=== PATIENT | female | born 1950 | race Caucasian/White ===

== ENCOUNTER 2021-11-20 12:49 | Emergency (ER) | payer OTHER ==
--- OUTSIDE RECORDS SUMMARY | 2021-11-20 12:51 | XMS REPORT | Continuity of Care Document ---
:1950 Author Organization [facility] Address [address] [place] [address] Dr. Germain [address] [place] [id number] Care Team Providers Name Role Phone RIN Attending Clinician Unavailable Payers Payer Name Policy Type Policy Number Effective Date Expiration Date S ource [employer] MEDICARE [id number] [facility] Problems This patient has no known problems. Allergies, Adverse Reactions, Alerts This patient has no known allergies or adverse reactions. Medications This patient has no known medications. Procedures This patient has no known procedures. Encounters Start End Encounter Admission Attending Care Care Encounter Source Date/Time Date/Time Type Type Clinicians Facility Department ID 2021-11-09 2021-11-09 Outpatient [facility] [id number] [facility] 13:43:47 16:18:44 KATHLEEN [facility] Results This patient has no known results.
[2021-11-20 14:13] LABS: Absolute Lymphocytes (CBC) 0.6 K/uL (0.7-4.9); Hematocrit 39.2 % (36.0-45.0); Lymphocytes % 9.5 % (15.3-44.8); MPV 7.7 fL (7.6-11.3)
[2021-11-20 14:21] LABS: Protime INR 1.18
--- NOTE | 2021-11-20 14:22 | RAD REPORT ---
EXAM DESCRIPTION: RAD - Chest Single View - 11/20/2021 2:05 pm CLINICAL HISTORY: DYSPNEA Chest pain. COMPARISON: No comparisons FINDINGS: Portable technique limits examination quality. Moderate right pleural effusion is noted. Linear subsegmental atelectasis is seen in the right mid reinier ng. The left lung is grossly clear. The heart is normal in size. No displaced fractures.
[2021-11-20 14:31] LABS: ALT/SGPT 12 U/L (12-78); AST/SGOT 17 U/L (15-37); Alkaline Phosphatase 53 U/L (45-117); BUN Blood Urea Nitrogen 15 mg/dL (7-18); Bicarbonate 27 mmol/L (21-32); Bilirubin Direct 0.1 mg/dL (0-0.2); Bilirubin Total 0.4 mg/dL (0.2-1.0); Glucose Level 91 mg/dL (74-106); Magnesium 1.5 mg/dL (1.8-2.4); NT PRO-BNP 691 pg/mL (<125); Potassium 3.8 mmol/L (3.5-5.1); Protein, Total 6.6 g/dL (6.4-8.2); Sodium Level 141 mmol/L (136-145); Troponin (Emerg Dept Use Only) < 0.02 ng/mL (0.0-0.045)
[2021-11-20] MEDS ORDERED: MAGNESIUM SULFATE 1 gm IVPB 1 GM/100 ML BAG IV ONE (15:11)
--- NOTE | 2021-11-20 16:53 | EDPHYS ---
Physician Documentation [facility] Name: Kimberly Hernandez Age: 71 yrs Sex: Female : 1950 Arrival Date: 11/20/2021 Time: 12:52 Bed 26 Private MD: ED Physician Alexander Sullivan HPI: 11/20 17:04 This 71 yrs old Female presents to ER via Wheelchair with complaints of Low O2. kb 17:05 The patient has shortness of breath with light activity. Onset: The symptoms/episode kb began/occurred 4 day(s) ago. Duration: The symptoms are continuous, and are unchanged since they started. The patient's shortness of breath is aggravated by exertion. Associated signs and symptoms: The patient has no apparent associated signs or symptoms. Severity of symptoms: At their worst the symptoms were mild in the emergency department the symptoms are unchanged. The patient has not experienced similar symptoms in the past. The patient has not recently seen a physician. Historical: - Allergies: 13:27 No Known Allergies; ap3 - PMHx: 13:27 Diabetes mellitus; Hypertensive disorder; ap3 - PSHx: 13:27 section; ap3 - Immunization history:: Client reports receiving the 2nd dose of the Covid vaccine. - Social history:: Smoking status: Patient denies any tobacco usage or history of. ROS: 17:03 Constitutional: Negative for fever, chills, and weight loss. kb 17:03 Respiratory: Positive for dyspnea on exertion, Negative for cough, hemoptysis, orthopnea, pleurisy, shortness of breath, sputum production, wheezing. 17:03 All other systems are negative. Exam: 17:03 Constitutional: This is a well developed, well nourished patient who is awake, alert, kb and in no acute distress. Head/Face: Normocephalic, atraumatic. Cardiovascular: Regular rate and rhythm with a normal S1 and S2. No gallops, murmurs, or rubs. No pulse deficits. Respiratory: Respirations even and unlabored. No increased work of breathing. Talking in full sentences Abdomen/GI: Soft, non-tender. No distention Skin: Warm, dry with normal turgor. Normal color. MS/ Extremity: Pulses equal, no cyanosis. Neurovascular intact. Full, normal range of motion. Neuro: Awake and alert, GCS 15, oriented to person, place, time, and situation. Moves all extremities. Normal gait. Psych: Awake, alert, with orientation to person, place and time. Behavior, mood, and affect are within normal limits. 17:03 Cardiovascular: Edema: pedal edema. Vital Signs: 13:23 BP 125 / 55; Pulse 71; Temp 98.7(TE); Pulse Ox 94% on R/A; Weight 73.48 kg; Height 4 ap3 ft. 11 in. (149.86 cm); 13:23 Body Mass Index 32.72 (73.48 kg, 149.86 cm) ap3 MDM: 13:34 Patient medically screened. kb 16:50 Data reviewed: vital signs, nurses notes. Data interpreted: Pulse oximetry: on room air kb is 94 %. Interpretation: normal. Counseling: I had a detailed discussion with the patient and/or guardian regarding: the historical points, exam findings, and any diagnostic results supporting the discharge/admit diagnosis, lab results, radiology results, the need for outpatient follow up, a family practitioner. ED course: Pt states the pleural effusion is known. States she had a CT and was told about the effusion on 11/09/21. Discussed admission with pt. Pt does not want to be admitted. States she will rest better at home and will follow up with her PCP. Pt given strict return precautions and will return if needed. . 11/20 13:42 Order name: Basic Metabolic Panel; Complete Time: 14:32 kb 11/20 13:42 Order name: CBC with Diff; Complete Time: 14:20 kb 11/20 13:42 Order name: LFT's; Complete Time: 14:32 kb 11/20 13:42 Order name: Magnesium; Complete Time: 14:32 kb 11/20 13:42 Order name: NT PRO-BNP; Complete Time: 14:32 kb 11/20 13:42 Order name: PT-INR; Complete Time: 14:22 kb 11/20 13:42 Order name: Troponin (emerg Dept Use Only); Complete Time: 14:32 kb 11/20 13:42 Order name: XRAY Chest (1 view); Complete Time: 14:27 kb 11/20 13:42 Order name: EKG; Complete Time: 13:43 kb 11/20 13:42 Order name: Cardiac monitoring; Complete Time: 13:55 kb 11/20 13:42 Order name: EKG - Nurse/Tech; Complete Time: 14:04 kb 11/20 13:42 Order name: IV Saline Lock; Complete Time: 14:04 kb 11/20 13:42 Order name: Labs collected and sent; Complete Time: 14:04 kb 11/20 13:42 Order name: O2 Per Protocol; Complete Time: 13:55 kb 11/20 13:42 Order name: O2 Sat Monitoring; Complete Time: 13:55 kb Administered Medications: 15:04 Drug: Magnesium Sulfate 1 grams Route: IVPB; Infused Over: 30 mins; Site: left [facility] antecubital; Disposition: 11/21 12:57 Co-signature as Attending Physician, Alexander Sullivan MD I agree with the assessment and blue plan of care. Disposition Summary: 11/20/21 16:52 Discharge Ordered Location: Home kb Condition: Stable kb Diagnosis - Dyspnea kb - Pleural effusion, not elsewhere classified kb Followup: kb - With: Emergency Department - When: As needed - Reason: Worsening of condition Followup: kb - With: Private Physician - When: 2 - 3 days - Reason: Recheck today's complaints, Continuance of care, Re-evaluation by your physician Discharge Instructions: - Discharge Summary Sheet kb - Pleural Effusion kb - Shortness of Breath, Adult, [id number] kb Forms: - Medication Reconciliation Form kb - Thank You Letter kb - Antibiotic Education kb - Prescription Opioid Use kb Signatures: Dispatcher [employer] EDAndreina Flaherty, DOCUMENT REVIEWER-C DOCUMENT REVIEWER-Alexander Barker MD MD cha Prokisch, Amanda RN RN ap3 Eleonora Merida RN RN [id number] Corrections: (The following items were deleted from the chart) 11/20 16:55 15:30 Chest For PE Angio+CT.RAD.BRZ ordered. EDMS EDMS
--- NOTE | 2021-11-20 16:53 | ER ---
Nurse's Notes [facility] Name: Kimberly Hernandez Age: 71 yrs Sex: Female : 1950 Arrival Date: 11/20/2021 Time: 12:52 Bed 26 Private MD: Diagnosis: Dyspnea;Pleural effusion, not elsewhere classified Presentation: 11/20 13:23 Chief complaint: Patient states: she has been getting short of breath a couple of days ap3 ago. Coronavirus screen: At this time, the client does not indicate any symptoms associated with coronavirus-19. Ebola Screen: No symptoms or risks identified at this time. Initial Sepsis Screen: Does the patient meet any 2 criteria? No. Patient's initial sepsis screen is negative. Does the patient have a suspected source of infection? No. Patient's initial sepsis screen is negative. Risk Assessment: Do you want to hurt yourself or someone else? Patient reports no desire to harm self or others. Onset of symptoms was November 17, 2021. 13:23 Method Of Arrival: Wheelchair ap3 13:23 Acuity: VINOD 3 ap3 Triage Assessment: 13:28 General: Appears comfortable, Behavior is calm, cooperative. Pain: Denies pain. Neuro: ap3 Level of Consciousness is awake, alert, obeys commands, Oriented to person, place, time, situation, Appropriate for age. Respiratory: Airway is patent Respiratory effort is even, unlabored. Historical: - Allergies: 13:27 No Known Allergies; ap3 - PMHx: 13:27 Diabetes mellitus; Hypertensive disorder; ap3 - PSHx: 13:27 section; ap3 - Immunization history:: Client reports receiving the 2nd dose of the Covid vaccine. - Social history:: Smoking status: Patient denies any tobacco usage or history of. Screenin:29 Abuse screen: Denies threats or abuse. Nutritional screening: No deficits noted. ap3 Tuberculosis screening: No symptoms or risk factors identified. Vital Signs: 13:23 BP 125 / 55; Pulse 71; Temp 98.7(TE); Pulse Ox 94% on R/A; Weight 73.48 kg; Height 4 ap3 ft. 11 in. (149.86 cm); 13:23 Body Mass Index 32.72 (73.48 kg, 149.86 cm) ap3 ED Course: 12:52 Patient arrived in ED. ds1 13:27 Triage completed. ap3 13:29 Arm band placed on right wrist. ap3 13:34 Andre[facility] Mc[facility]hon F[facility]-C [facility] kb 13:34 Alexander Sullivan MD is Attending Physician. kb 13:47 Eleonora Merida, RN is Primary Nurse. [facility] 14:06 XRAY Chest (1 view) In Process Unspecified. EDMS 14:31 Primary Nurse role handed off by Eleonora Merida, GARFIELD 5 15:09 Eleonora Merida, RN is Primary Nurse. [facility] Administered Medications: 15:04 Drug: Magnesium Sulfate 1 grams Route: IVPB; Infused Over: 30 mins; Site: left [facility] antecubital; Outcome: 16:52 Discharge ordered by MD. kb 17:16 Patient left the ED. [facility] Signatures: Dispatcher [employer] EDAK Andreina Mcmahon FNP-C EVALUATION SPECIALIST-Otilia Godinez ds1 Yayo Marroquin RN RN sr5 Angy Rosenberg RN RN ap3 Eleonora Merida, GARFIELD RN [facility]
[2021-11-20 17:21] VITALS: BP 125/55; TEMP 98.7; O2SAT 94
== END 2021-11-20 17:16 | disposition home or self-care (01) ==
LOC: ER 12:49
DX: J90 Pleural effusion, not elsewhere classified (principal); I10 Essential (primary) hypertension
CPT/HCPCS: 93005; 85025; 80048; 36415; 83735; 85610; 80076; 84484; 83880; 71045; 96374; 99283; J3475

== ENCOUNTER 2022-12-27 07:16 | Day surgery (SDC) | payer OTHER ==
[2022-12-25 16:23] LABS: Protime INR 1.09
[2022-12-25 16:51] LABS: Potassium 4.1 mmol/L (3.5-5.1)
[2022-12-27] MEDS ORDERED: FENTANYL CITR 100 MCG/2 ML ONE (07:26)
[2022-12-27] MEDS ORDERED: propofoL 200 MG/20 ML VIAL IV ONE (07:26)
[2022-12-27] MEDS ORDERED: NS 0.9% VIAL 10 ML ONE (07:27)
[2022-12-27] MEDS ORDERED: Ringers Lactate 1,000 ML IV ONE (07:27)
[2022-12-27] MEDS ORDERED: CEFAZOLIN SODIUM 1 GM/VIAL ONE (07:27)
[2022-12-27] MEDS ORDERED: LIDOCAINE 2% MPF 5 ML VIAL ONE (07:27)
[2022-12-27] MEDS ORDERED: BUPIVACAINE 0.25% PF 30 ML VIAL ONE (07:35)
[2022-12-27] MEDS ORDERED: dexAMETHasone 10 MG/ML VIAL ONE (08:01)
[2022-12-27] MEDS ORDERED: ONDANSETRON 4 MG/2 ML VIAL ONE (08:03)
[2022-12-27] MEDS ORDERED: EPHEDRINE SULF 50 MG/ML VIAL ONE (08:03)
[2022-12-27] MEDS ORDERED: KETOROLAC 30 MG/ML INJ ONE (08:03)
--- NOTE | 2022-12-27 08:29 | P.OP ---
Preoperative diagnosis: LEFT inguinal post op seroma Postoperative diagnosis: LEFT inguinal post op seroma Primary procedure: Incision, Drainage, and Debridement of LEFT groin seroma Anesthesia: GETA + Local Estimated blood loss: <1cc Specimen: debridement tissue, cultures Findings: seroma, necrosis, extending to pubis, inguinal ligament Complications: None Transferred to: Recovery Room Condition: Good
[2022-12-27 09:02] VITALS: O2SAT 100
--- NOTE | 2022-12-27 09:43 | OP ---
Date of Procedure: 12/27/2022 Surgeon: Vance Burns MD, Preoperative Diagnosis: Left inguinal, postop seroma. Postoperative Diagnosis: Left inguinal, postop seroma. Procedure Performed: Incision, drainage and debridement of left groin seroma. Anesthesia: General endotracheal plus local with 0.25% Marcaine. Estimated Blood Loss: Less than 1 cc. Specimen: Debridement tissue and cultures. Findings: Seroma, necrosis extending from the pubis to the inguinal ligament overlying a previous ac cess for an intravascular procedure. Complications: None. Disposition: The patient was transferred to the recovery room in good condition. Procedure In Detail: After informed consent was obtained, the patient was brought to the operating r oom, prepped and draped in the usual sterile fashion after adequate anesthesia was achieved. I made a linear incision overlying a draining sinus tract at the skin level over the left inguinal region fo llowing the previous incision. I dissected down through subcutaneous tissues to expose a large fluid -filled cavity, which was predominantly serous fluid. This was cultured at this time. I then extend ed the incision extending down to the pubis on the medial aspect of the inguinal ligament, removing n ecrotic tissue as I encountered it. There was some necrotic tissue lining this cavity, marsupialized and unroofed the area using sharp dissection as well as electrocautery. There was minimal blood los s throughout the procedure. I then cleansed the area and irrigated it copiously. There were no vasc ular injuries throughout the procedure and no nerves encountered throughout the dissection. I then p roceeded to pack the wound with Vashe-soaked Kerlix and a sterile dressing placed over top. The cori ent tolerated the procedure well without evidence of complication and transferred to PACU in good con dition. All counts were correct at the end of the case. TK/MODL Voice ID: [id number] Report ID: [id number]
[2022-12-27 11:51] VITALS: BP 132/85; TEMP 97.2
== END 2022-12-27 10:05 | disposition home or self-care (01) ==
LOC: OR 07:16
PROVIDERS: ATTEND Surgery
PROC: 0JBC0ZZ Excision of Pelvic Region Subcutaneous Tissue and Fascia, Open Approach (ICD-10-PCS; principal; 2022-12-27 08:30)
DX: L76.34 Postprocedural seroma of skin and subcutaneous tissue following other procedure (principal); I96 Gangrene, not elsewhere classified
CPT/HCPCS: 93005; 80048; 36415; 85610; 88304; 85730; 11042; J2704; J2001; J3010; J1100; A4216; J7120; J2405; J0690

== ENCOUNTER 2023-02-15 13:49 | Emergency (ER) | payer OTHER ==
--- OUTSIDE RECORDS SUMMARY | 2023-02-15 14:08 | XMS REPORT | Continuity of Care Document ---
:[address] [facility] t Address [address] [place] [id number] Care Team Providers Name Role Phone No, Pcp [facility] Primary Care Physician Unavailable Graciela PROCTOR, Ronaldo Green Attending Clinician [phone] RONALDO OWENS Attending Clinician Unavailable BELINDA REYES Attending Clinician Unavailable LEROY BARRETT I Attending Clinician Unavailable LUCRECIA OKEEFE Attending Clinician Unavailable RONALDO OWENS Attending Clinician Unavailable Luke Gallardo Cardiology Attending Clinician Unavailable JONATHAN CANNON Attending Clinician Unavailable Marlo PROCTOR, Jose Luis Pantoja Attending Clinician Lisandro PROCTOR, Americo Cesar Attending Clinician Carlos PROCTOR, Jackson Jimenez Attending Clinician [phone] Alicia Cannon MD Attending Clinician [phone] ALICIA CANNON Attending Clinician Unavailable Dany PROCTOR, Ingrid Ruano Attending Clinician Castro José MD Attending Clinician Solomon Willard MD Attending Clinician John Paul PROCTOR, Nando Rosen Attending Clinician [phone] Piero TERESABrad Attending Clinician [phone] Octavio Chavarria MD Attending Clinician Darion PROCTOR, Jacobo Rivera Attending Clinician BELINDA REYES Admitting Clinician Unavailable LUCRECIA OKEEFE Admitting Clinician Unavailable KNOW, DOES_NOT Admitting Clinician Unavailable RONALDO OWENS Admitting Clinician Unavailable Payers Payer Name Policy Type Policy Number Effective Date Expiration Date S sophia [employer] MEDICARE [id number] 2021 ADVANTAGE 00:00:00 [facility] MEDICARE [id number] [facility] Problems Condition Condition Condition Status Onset Resolution Last Treating Co mments Source Name Details Category Date Date Treatment Clinician Date Ovarian Ovarian Disease Recurre [facility]: [facility] 00 [facility] Bilateral Bilateral Disease Recurre [facility] ovarian ovarian 00:00: Medical cancer cancer 00 Center Type 2 Type [address] [facility]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 [facility]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 Medica l without without Center complicati complicati on, with on, with long-term long-term current current use of use of insulin insulin Essential Essential Disease Active [facility]ens[facility] Hyperlipid Hyperlipid Disease Active [facility] emia, emia, [facility] unspecifie unspecifie Me dical d d Center hyperlipid hyperlipid emia type emia type Aortic Aortic Disease Active [facility] valve valve [facility] stenosis, stenosis, [facility] etiology etiology Center of cardiac of cardiac valve valve disease disease unspecifie unspecifie d d Mitral Mitral Disease Active [facility] valve valve [facility] stenosis, stenosis, [facility]i [facility] unspecifie unspecifie Ce nter d etiology d etiology Major Major Disease Active [facility] depressive depressive [facility] disorder disorder Medica l with with Center current current active active episode, episode, unspecifie unspecifie d d depression depression episode episode severity, severity, unspecifie unspecifie d whether d whether recurrent recurrent Decreased Decreased Disease Active [facility] urine urine [facility] output output Medical Center Allergies, Adverse Reactions, Alerts Allergy Allergy Status Severity Reaction(s) Onset Inactive Treating Comm ents Source Name Type Date Date Clinician codeine DA Active U UNKNOWN [facility] 06[facility] 00:[facility]: [address] Codeine Drug Active 2019-11 "felt [facility] All[facility] 1-04 [facility]" [facility] 00:[facility]: [address] CODEINE Allergy Active 2019-[address] 1[facility]04 [facility] 00:[facility]: [address] NO KNOWN Allergy Active [facility] Social History Social Habit Start Date Stop Date Quantity Comments Source History of Current sm[facility] Alcohol intake 2022-06-29 2022-06-29 Ex-drinker [facility] 00:[facility]00 00:00:00 (finding) [facility] Tobacco use and 2022-02-23 2022-02-[address] [facility] exposure 00:00:00 00:00:00 tobacco user [facility] Cent [facility] Tobacco Comment 2022-02-23 2022-02-23 quit > [address] [facility] 00:00:00 00:00:00 [facility] Sex Assigned At [address] [facility] 00:00:00 00:00:00 [facility] Smoking Status Start Date Stop Date Source Ex-smoker 2022-02-23 00:00:00 2022-02-23 00:00:[address] [facility] Medications Ordered Filled Start Stop Current Ordering Indication Dosage Frequency Signature Comments Components Source Medication Medication Date Date Medication? Clinician (SIG) Name Name levothyroxi Yes 75ug Take [address] [facility] ne 4-25 mcg by [facility] (SYNTHROID, 12:06: mouth Medic al LEVOTHROID) 56 Every Center 75 MCG morning on tablet an empty stomach. SITagliptin Yes 100mg QD Take [address] (JANUVIA) 4-25 mg by [facility] 100 MG 12:06: mouth Medical tablet 56 daily. Center metFORMIN Yes 1000mg Take 1,[address] [facility] [address] (GLUCOPHAGE 4-25 mg by [facility] ) 1000 MG 12:06: mouth 2 Medic al tablet 56 (two) Center times daily with breakfast and dinner. escitalopra 2021-0 Yes 5mg QD Take [address] m oxalate 4-25 by mouth [facility] (LEXAPRO) 5 12:06: daily. Medi dhiraj MG tablet 56 Center rosuvastati 0 Yes 10mg QD Take [address] n (CRESTOR) 4-25 by mouth Luke s 10 MG 12:06: daily. Medical tablet 56 [place] aspirin 81 0 Yes 81mg QD Take [address] MG EC 4-25 by mouth [facility] tablet 12:06: daily. Medical [address] [place] [address] levothyroxi 0 Yes 75ug Take [address] ne 4-25 mcg by [facility] (SYNTHROID, 12:06: mouth Medic al LEVOTHROID) 56 Every Center 75 MCG morning on tablet an empty stomach. SITagliptin 0 Yes 100mg QD Take [address] (JANUVIA) 4-25 mg by [facility] 100 MG 12:06: mouth Medical tablet 56 daily. [place] metFORMIN 0 Yes 1000mg Take 1,[address] (GLUCOPHAGE 4-25 mg by [facility] ) 1000 MG 12:06: mouth 2 Medic al tablet 56 (two) Center times daily with breakfast and dinner. escitalopra 0 Yes 5mg QD Take [address] m oxalate 4-25 by mouth [facility] (LEXAPRO) 5 12:06: daily. Medi dhiraj MG tablet 56 [place] rosuvastati Yes 10mg QD Take [address] n (CRESTOR) 4-25 by mouth Luke s 10 MG 12:06: daily. Medical tablet 56 [place] aspirin 81 0 Yes 81mg QD Take [address] MG EC 4-25 by mouth [facility] tablet 12:06: daily. Medical [address] [place] [address] levothyroxi 0 Yes 75ug Take [address] ne 4-25 mcg by [facility] (SYNTHROID, 12:06: mouth Medic al LEVOTHROID) 56 Every Center 75 MCG morning on tablet an empty stomach. SITagliptin 2021-0 Yes 100mg QD Take [address] (JANUVIA) 4-25 mg by [facility] 100 MG 12:06: mouth Medical tablet 56 daily. [place] metFORMIN 2022-0 Yes 1000mg Take 1,[address] (GLUCOPHAGE 4-25 mg by [facility] ) 1000 MG 12:06: mouth 2 Medic al tablet 56 (two) Center times daily with breakfast and dinner. escitalopra 0 Yes 5mg QD Take [address] m oxalate 4-25 by mouth [facility] (LEXAPRO) 5 12:06: daily. Medi dhiraj MG tablet 56 Center rosuvastati Yes 10mg QD Take [address] n (CRESTOR) 4-25 by mouth Luke s 10 MG 12:06: daily. Medical tablet 56 Center aspirin 81 0 Yes 81mg QD Take [address] MG EC 4-25 by mouth [facility] tablet 12:06: daily. Medical Center levothyroxi 0 Yes 75ug Take [address] ne 4-25 mcg by [facility] (SYNTHROID, 12:06: mouth Medic al LEVOTHROID) 56 Every Center 75 MCG morning on tablet an empty stomach. SITagliptin 0 Yes 100mg QD Take [address] (JANUVIA) 4-25 mg by [facility] 100 MG 12:06: mouth Medical tablet 56 daily. Center metFORMIN Yes 1000mg Take 1,[address] (GLUCOPHAGE 4-25 mg by [facility] ) 1000 MG 12:06: mouth 2 Medic al tablet 56 (two) Center times daily with breakfast and dinner. escitalopra 0 Yes 5mg QD Take [address] m oxalate 4-25 by mouth [facility] (LEXAPRO) 5 12:06: daily. Medi dhiraj MG tablet 56 Center rosuvastati Yes 10mg QD Take [address] n (CRESTOR) 4-25 by mouth Luke s 10 MG 12:06: daily. Medical tablet 56 Center aspirin 81 0 Yes 81mg QD Take [address] MG EC 4-25 by mouth [facility] tablet 12:06: daily. Medical Center levothyroxi 0 Yes 75ug Take [address] ne 4-25 mcg by [facility] (SYNTHROID, 12:06: mouth Medic al LEVOTHROID) 56 Every Center 75 MCG morning on tablet an empty stomach. SITagliptin 0 Yes 100mg QD Take [address] (JANUVIA) 4-25 mg by [facility] 100 MG 12:06: mouth Medical tablet 56 daily. Center metFORMIN Yes 1000mg Take 1,[address] (GLUCOPHAGE 4-25 mg by [facility] ) 1000 MG 12:06: mouth 2 Medic al tablet 56 (two) Center times daily with breakfast and dinner. escitalopra Yes 5mg QD Take [address] m oxalate 4-25 by mouth [facility] (LEXAPRO) 5 12:06: daily. Medi dhiraj MG tablet 56 Center rosuvastati Yes 10mg QD Take [address] n (CRESTOR) 4-25 by mouth Luke s 10 MG 12:06: daily. Medical tablet 56 Center aspirin 81 Yes 81mg QD Take [address] MG EC 4-25 by mouth [facility] tablet 12:06: daily. Medical Center levothyroxi Yes 75ug Take [address] ne 4-25 mcg by [facility] (SYNTHROID, 12:06: mouth Medic al LEVOTHROID) 56 Every Center 75 MCG morning on tablet an empty stomach. SITagliptin Yes 100mg QD Take [address] (JANUVIA) 4-25 mg by [facility] 100 MG 12:06: mouth Medical tablet 56 daily. Center metFORMIN Yes 1000mg Take 1,[address] (GLUCOPHAGE 4-25 mg by [facility] ) 1000 MG 12:06: mouth 2 Medic al tablet 56 (two) Center times daily with breakfast and dinner. escitalopra Yes 5mg QD Take [address] m oxalate 4-25 by mouth [facility] (LEXAPRO) 5 12:06: daily. Medi dhiraj MG tablet 56 Center rosuvastati Yes 10mg QD Take [address] n (CRESTOR) 4-25 by mouth Luke s 10 MG 12:06: daily. Medical tablet 56 Center aspirin 81 0 Yes 81mg QD Take [address] MG EC 4-25 by mouth [facility] tablet 12:06: daily. Medical Center levothyroxi Yes 75ug Take [address] ne 4-25 mcg by [facility] (SYNTHROID, 12:06: mouth Medic al LEVOTHROID) 56 Every Center 75 MCG morning on tablet an empty stomach. SITagliptin 0 Yes 100mg QD Take [address] (JANUVIA) 4-25 mg by [facility] 100 MG 12:06: mouth Medical tablet 56 daily. Center metFORMIN Yes 1000mg Take 1,[address] (GLUCOPHAGE 4-25 mg by [facility] ) 1000 MG 12:06: mouth 2 Medic al tablet 56 (two) Center times daily with breakfast and dinner. escitalopra 0 Yes 5mg QD Take [address] m oxalate 4-25 by mouth [facility] (LEXAPRO) 5 12:06: daily. Medi dhiraj MG tablet 56 Center rosuvastati Yes 10mg QD Take [address] [address] n (CRESTOR) 4-25 by mouth Luke s 10 MG 12:06: daily. Medical tablet 56 Center aspirin 81 0 Yes 81mg QD Take [address] MG EC 4-25 by mouth [facility] tablet 12:06: daily. Medical [address] [place] [address] levothyroxi Yes 75ug Take [address] ne 4-25 mcg by [facility] (SYNTHROID, 12:06: mouth Medic al LEVOTHROID) 56 Every Center 75 MCG morning on tablet an empty stomach. SITagliptin Yes 100mg QD Take [address] (JANUVIA) 4-25 mg by [facility] 100 MG 12:06: mouth Medical tablet 56 daily. Center metFORMIN Yes 1000mg Take 1,[address] (GLUCOPHAGE 4-25 mg by [facility] ) 1000 MG 12:06: mouth 2 Medic al tablet 56 (two) Center times daily with breakfast and dinner. escitalopra 0 Yes 5mg QD Take [address] m oxalate 4-25 by mouth [facility] (LEXAPRO) 5 12:06: daily. Medi dhiraj MG tablet 56 Center rosuvastati Yes 10mg QD Take [address] [facility] [address] n (CRESTOR) 4-25 by mouth Luke s 10 MG 12:06: daily. Medical tablet 56 Center aspirin 81 0 Yes 81mg QD Take [address] MG EC 4-25 by mouth [facility] tablet 12:06: daily. Medical Center levothyroxi 0 Yes 75ug Take [address] ne 4-25 mcg by [facility] (SYNTHROID, 12:06: mouth Medic al LEVOTHROID) 56 Every Center 75 MCG morning on tablet an empty stomach. SITagliptin 0 Yes 100mg QD Take [address] (JANUVIA) 4-25 mg by [facility] 100 MG 12:06: mouth Medical tablet 56 daily. Center metFORMIN 0 Yes 1000mg Take 1,[address] (GLUCOPHAGE 4-25 mg by [facility] ) 1000 MG 12:06: mouth 2 Medic al tablet 56 (two) Center times daily with breakfast and dinner. escitalopra 2021-0 Yes 5mg QD Take [address] m oxalate 4-25 by mouth [facility] (LEXAPRO) 5 12:06: daily. Medi dhiraj MG tablet 56 Center rosuvastati Yes 10mg QD Take [address] [facility] [address] n (CRESTOR) 4-25 by mouth Luke s 10 MG 12:06: daily. Medical tablet 56 [place] aspirin 81 0 Yes 81mg QD Take [address] MG EC 4-25 by mouth [facility] tablet 12:06: daily. Medical [address] [place] [address] levothyroxi Yes 75ug Take [address] ne 4-25 mcg by [facility] (SYNTHROID, 12:06: mouth Medic al LEVOTHROID) 56 Every Center 75 MCG morning on tablet an empty stomach. SITagliptin 0 Yes 100mg QD Take [address] (JANUVIA) 4-25 mg by [facility] 100 MG 12:06: mouth Medical tablet 56 daily. Center metFORMIN Yes 1000mg Take 1,[address] (GLUCOPHAGE 4-25 mg by [facility] ) 1000 MG 12:06: mouth 2 Medic al tablet 56 (two) Center times daily with breakfast and dinner. escitalopra 2021-0 Yes 5mg QD Take [address] m oxalate 4-25 by mouth [facility] (LEXAPRO) 5 12:06: daily. Medi dhiraj MG tablet 56 Center rosuvastati 0 Yes 10mg QD Take [address] [facility] [address] n (CRESTOR) 4-25 by mouth Luke s 10 MG 12:06: daily. Medical tablet 56 Center aspirin 81 0 Yes 81mg QD Take [address] MG EC 4-25 by mouth [facility] tablet 12:06: daily. Medical Center levothyroxi 0 Yes 75ug Take [address] ne 4-25 mcg by [facility] (SYNTHROID, 12:06: mouth Medic al LEVOTHROID) 56 Every Center 75 MCG morning on tablet an empty stomach. SITagliptin 0 Yes 100mg QD Take [address] (JANUVIA) 4-25 mg by [facility] 100 MG 12:06: mouth Medical tablet 56 daily. Center metFORMIN 0 Yes 1000mg Take 1,[address] (GLUCOPHAGE 4-25 mg by [facility] ) 1000 MG 12:06: mouth 2 Medic al tablet 56 (two) Center times daily with breakfast and dinner. escitalopra 0 Yes 5mg QD Take [address] m oxalate 4-25 by mouth [facility] (LEXAPRO) 5 12:06: daily. Medi dhiraj MG tablet 56 Center rosuvastati 0 Yes 10mg QD Take [address] [facility] [address] n (CRESTOR) 4-25 by mouth Luke s 10 MG 12:06: daily. Medical tablet 56 Center aspirin 81 0 Yes 81mg QD Take [address] MG EC 4-25 by mouth [facility] tablet 12:06: daily. [address] sodium 2021-0 Yes 500mg Q.5D Take [address] [facility] [address] phosphates- 4-25 tablets [facility] potassium 00:00: (500 mg Medic al phosphate 00 total) by Dhaval acuna (K-PHOS mouth 2 NEUTRAL) (two) 250 mg Tab times tablet daily. sodium 2021-0 Yes 500mg Q.5D Take [address] [facility] [address] phosphates- 4-25 tablets [facility] potassium 00:00: (500 mg Medic al phosphate 00 total) by Dhaval acuna (K-PHOS mouth 2 NEUTRAL) (two) 250 mg Tab times tablet daily. sodium 2-0 Yes 500mg Q.5D Take [address] [facility] [address] phosphates- 4-25 tablets [facility] potassium 00:00: (500 mg Medic al phosphate 00 total) by Dhaval acuna (K-PHOS mouth 2 NEUTRAL) (two) 250 mg Tab times tablet daily. sodium 2021-0 Yes 500mg Q.5D Take [address] [facility] [address] phosphates- 4-25 tablets [facility] potassium 00:00: (500 mg Medic al phosphate 00 total) by Dhaval acuna (K-PHOS mouth 2 NEUTRAL) (two) 250 mg Tab times tablet daily. sodium 2022-0 Yes 500mg Q.5D Take [address] [facility] [address] phosphates- 4-25 tablets [facility] potassium 00:00: (500 mg Medic al phosphate 00 total) by Dhaval acuna (K-PHOS mouth 2 NEUTRAL) (two) 250 mg Tab times tablet daily. sodium 2022-0 Yes 500mg Q.5D Take [address] [facility] [address] phosphates- 4-25 tablets [facility] potassium 00:00: (500 mg Medic al phosphate 00 total) by Dhaval acuna (K-PHOS mouth 2 NEUTRAL) (two) 250 mg Tab times tablet daily. sodium 2022-0 Yes 500mg Q.5D Take [address] [address] phosphates- 4-25 tablets [facility] potassium 00:00: (500 mg Medic al phosphate 00 total) by Dhaval acuna (K-PHOS mouth 2 NEUTRAL) (two) 250 mg Tab times tablet daily. sodium 2022-0 Yes 500mg Q.5D Take [address] [facility] [address] phosphates- 4-25 tablets [facility] potassium 00:00: (500 mg Medic al phosphate 00 total) by Dhaval acuna (K-PHOS mouth 2 NEUTRAL) (two) 250 mg Tab times tablet daily. sodium 2022-0 Yes 500mg Q.5D Take [address] [facility] [address] phosphates- 4-25 tablets [facility] potassium 00:00: (500 mg Medic al phosphate 00 total) by Dhaval acuna (K-PHOS mouth 2 NEUTRAL) (two) 250 mg Tab times tablet daily. sodium 2022-0 Yes 500mg Q.5D Take [address] [facility] [address] phosphates- 4-25 tablets [facility] potassium 00:00: (500 mg Medic al phosphate 00 total) by Dhaval acuna (K-PHOS mouth 2 NEUTRAL) (two) 250 mg Tab times tablet daily. sodium 2022-0 Yes 500mg Q.5D Take [address] [facility] [address] phosphates- 4-25 tablets [facility] potassium 00:00: (500 mg Medic al phosphate 00 total) by Dhaval acuna (K-PHOS mouth 2 NEUTRAL) (two) 250 mg Tab times tablet daily. magnesium 2022-0 202- No 800mg QD Take [address] [address] oxide 4-25 04-25 tablets [facility] (MAG-OX) 00:00: 23:59 (800 mg Medic al 400 mg 00 :00 total) by [place] (241.3 mg mouth magnesium) daily. tablet magnesium 2022-0 2022- No 800mg QD Take [address] [address] oxide 4-25 04-25 tablets [facility] (MAG-OX) 00:00: 23:59 (800 mg Medic al 400 mg 00 :00 total) by Center (241.3 mg mouth magnesium) daily. tablet magnesium 202-0 2023- No 800mg QD Take [address] [facility] [address] oxide 4-25 04-25 tablets [facility] (MAG-OX) 00:00: 23:59 (800 mg Medic al 400 mg 00 :00 total) by Center (241.3 mg mouth magnesium) daily. tablet magnesium 2021-0 2023- No 800mg QD Take [address] [facility] [address] oxide 4-25 04-25 tablets [facility] (MAG-OX) 00:00: 23:59 (800 mg Medic al 400 mg 00 :00 total) by Center (241.3 mg mouth magnesium) daily. tablet magnesium 2021-0 2023- No 800mg QD Take [address] [facility] oxide 4-25 04-25 tablets [facility] (MAG-OX) 00:00: 23:59 (800 mg Medic al 400 mg 00 :00 total) by Center (241.3 mg mouth magnesium) daily. tablet magnesium 2021-0 2023- No 800mg QD Take [address] [facility] oxide 4-25 04-25 tablets [facility] (MAG-OX) 00:00: 23:59 (800 mg Medic al 400 mg 00 :00 total) by Center (241.3 mg mouth magnesium) daily. tablet magnesium 2021-0 3- No 800mg QD Take [address] [facility] [address] oxide 4-25 04-25 tablets [facility] (MAG-OX) 00:00: 23:59 (800 mg Medic al 400 mg 00 :00 total) by Center (241.3 mg mouth magnesium) daily. tablet magnesium 2021-0 2023- No 800mg QD Take [address] [facility] [address] oxide 4-25 04-25 tablets [facility] (MAG-OX) 00:00: 23:59 (800 mg Medic al 400 mg 00 :00 total) by Center (241.3 mg mouth magnesium) daily. tablet magnesium 2022-0 2023- No 800mg QD Take [address] [facility] [address] oxide 4-25 04-25 tablets [facility] (MAG-OX) 00:00: 23:59 (800 mg Medic al 400 mg 00 :00 total) by Center (241.3 mg mouth magnesium) daily. tablet magnesium 2022-0 2023- No 800mg QD Take [address] [facility] [address] oxide 4-25 04-25 tablets [facility] (MAG-OX) 00:00: 23:59 (800 mg Medic al 400 mg 00 :00 total) by Center (241.3 mg mouth magnesium) daily. tablet magnesium 2022- No 800mg QD Take [address] [facility] oxide 4-25 04-25 tablets [facility] (MAG-OX) 00:00: 23:59 (800 mg Medic al 400 mg 00 :00 total) by Center (241.3 mg mouth magnesium) daily. tablet acetaminoph 2022- No 650mg Take [address] en 4-25 04-20 tablets [facility] (TYLENOL) 00:00: 23:59 (650 mg Medi dhiraj 325 MG 00 :00 total) by Center tablet mouth every 6 (six) hours for 360 days. acetaminoph 2022- No 650mg Take [address] en 4-25 04-20 tablets [facility] (TYLENOL) 00:00: 23:59 (650 mg Medi dhiraj 325 MG 00 :00 total) by Center tablet mouth every 6 (six) hours for 360 days. acetaminoph 2022- No 650mg Take [address] en 4-25 04-20 tablets [facility] (TYLENOL) 00:00: 23:59 (650 mg Medi dhiraj 325 MG 00 :00 total) by Center tablet mouth every 6 (six) hours for 360 days. acetaminoph 2022- No 650mg Take [address] en 4-25 04-20 tablets [facility] (TYLENOL) 00:00: 23:59 (650 mg Medi dhiraj 325 MG 00 :00 total) by Center tablet mouth every 6 (six) hours for 360 days. acetaminoph 2022- No 650mg Take [address] en 4-25 04-20 tablets [facility] (TYLENOL) 00:00: 23:59 (650 mg Medi dhiraj 325 MG 00 :00 total) by Center tablet mouth every 6 (six) hours for 360 days. acetaminoph 2022- No 650mg Take [address] en 4-25 04-20 tablets [facility] (TYLENOL) 00:00: 23:59 (650 mg Medi dhiraj 325 MG 00 :00 total) by Center tablet mouth every 6 (six) hours for 360 days. acetaminoph 2021-0 3- No 650mg Take [address] en 4-25 04-20 tablets [facility] (TYLENOL) 00:00: 23:59 (650 mg Medi dhiraj 325 MG 00 :00 total) by Center tablet mouth every 6 (six) hours for 360 days. acetaminoph 2021-0 3- No 650mg Take [address] en 4-25 04-20 tablets [facility] (TYLENOL) 00:00: 23:59 (650 mg Medi dhiraj 325 MG 00 :00 total) by Center tablet mouth every 6 (six) hours for 360 days. acetaminoph 2021-0 2022- No 650mg Take [address] en 4-25 04-20 tablets [facility] (TYLENOL) 00:00: 23:59 (650 mg Medi dhiraj 325 MG 00 :00 total) by Center tablet mouth every 6 (six) hours for 360 days. acetaminoph 2021-0 2022- No 650mg Take [address] en 4-25 04-20 tablets [facility] (TYLENOL) 00:00: 23:59 (650 mg Medi dhiraj 325 MG 00 :00 total) by Center tablet mouth every 6 (six) hours for 360 days. acetaminoph 2021-0 2022- No 650mg Take [address] en 4-25 04-20 tablets [facility] (TYLENOL) 00:00: 23:59 (650 mg Medi dhiraj 325 MG 00 :00 total) by Center tablet mouth every 6 (six) hours for 360 days. ibuprofen 2021-2021- No 600mg Take [address] [facility] (ADVIL,MOTR 4-25 05-05 tablet [facility] IN) 600 MG 00:00: 23:59 (600 mg Med ical tablet 00 :00 total) by Center mouth every 6 (six) hours for 10 days. ibuprofen 2021-0 2- No 600mg Take [address] [facility] [address] (ADVIL,MOTR 4-25 05-05 tablet [facility] IN) 600 MG 00:00: 23:59 (600 mg Med ical tablet 00 :00 total) by Center mouth every 6 (six) hours for 10 days. ibuprofen 2021-0 2- No 600mg Take [address] [facility] [address] (ADVIL,MOTR 4-25 05-05 tablet [facility] IN) 600 MG 00:00: 23:59 (600 mg Med ical tablet 00 :00 total) by Center mouth every 6 (six) hours for 10 days. ibuprofen 2021-0 2- No 600mg Take [address] [facility] [address] (ADVIL,MOTR 4-25 05-05 tablet [facility] IN) 600 MG 00:00: 23:59 (600 mg Med ical tablet 00 :00 total) by Center mouth every 6 (six) hours for 10 days. ibuprofen 2021-0 2- No 600mg Take [address] [facility] [address] (ADVIL,MOTR 4-25 05-05 tablet [facility] IN) 600 MG 00:00: 23:59 (600 mg Med ical tablet 00 :00 total) by Center mouth every 6 (six) hours for 10 days. ibuprofen 2021-0 2021- No 600mg Take [address] [facility] [address] (ADVIL,MOTR 4-25 05-05 tablet [facility] IN) 600 MG 00:00: 23:59 (600 mg Med ical tablet 00 :00 total) by Center mouth every 6 (six) hours for 10 days. ibuprofen 2021-0 2021- No 600mg Take [address] [facility] [address] (ADVIL,MOTR 4-25 05-05 tablet [facility] IN) 600 MG 00:00: 23:59 (600 mg Med ical tablet 00 :00 total) by Center mouth every 6 (six) hours for 10 days. ibuprofen 2021-0 2021- No 600mg Take [address] [facility] [address] (ADVIL,MOTR 4-25 05-05 tablet [facility] IN) 600 MG 00:00: 23:59 (600 mg Med ical tablet 00 :00 total) by Center mouth every 6 (six) hours for 10 days. ibuprofen 2021-0 2- No 600mg Take [address] [facility] [address] (ADVIL,MOTR 4-25 05-05 tablet [facility] IN) 600 MG 00:00: 23:59 (600 mg Med ical tablet 00 :00 total) by Center mouth every 6 (six) hours for 10 days. ibuprofen 2021-0 2- No 600mg Take [address] [facility] [address] (ADVIL,MOTR 4-25 05-05 tablet [facility] IN) 600 MG 00:00: 23:59 (600 mg Med ical tablet 00 :00 total) by Center mouth every 6 (six) hours for 10 days. ibuprofen 2021-0 2- No 600mg Take [address] [facility] [address] (ADVIL,MOTR 4-25 05-05 tablet [facility] IN) 600 MG 00:00: 23:59 (600 mg Med ical tablet 00 :00 total) by Center mouth every 6 (six) hours for 10 days. polyethylen 2021-0 2021- No 17g QD Take [address] e glycol 4-25 04-28 by mouth [facility] (GLYCOLAX) 00:00: 23:59 daily for M edical 17 gram 00 :00 3 days. Center packet polyethylen 2021-0 2022- No 17g QD Take [address] [facility] e glycol 4-25 04-28 by mouth [facility] (GLYCOLAX) 00:00: 23:59 daily for M edical 17 gram 00 :00 3 days. Center packet polyethylen 2021-0 2- No 17g QD Take [address] [facility] e glycol 4-25 04-28 by mouth [facility] (GLYCOLAX) 00:00: 23:59 daily for M edical 17 gram 00 :00 3 days. Center packet polyethylen 2021-0 2022- No 17g QD Take [address] [facility] e glycol 4-25 04-28 by mouth [facility] (GLYCOLAX) 00:00: 23:59 daily for M edical 17 gram 00 :00 3 days. Center packet polyethylen 2021-0 2022- No 17g QD Take [address] [facility] e glycol 4-25 04-28 by mouth [facility] (GLYCOLAX) 00:00: 23:59 daily for M edical 17 gram 00 :00 3 days. Center packet polyethylen 2-0 2022- No 17g QD Take [address] [facility] e glycol 4-25 04-28 by mouth [facility] (GLYCOLAX) 00:00: 23:59 daily for M edical 17 gram 00 :00 3 days. Center packet polyethylen 2-0 2022- No 17g QD Take [address] [facility] e glycol 4-25 04-28 by mouth [facility] (GLYCOLAX) 00:00: 23:59 daily for M edical 17 gram 00 :00 3 days. Center packet polyethylen 2-0 2022- No 17g QD Take [address] [facility] e glycol 4-25 04-28 by mouth [facility] (GLYCOLAX) 00:00: 23:59 daily for M edical 17 gram 00 :00 3 days. Center packet polyethylen 2022-0 2022- No 17g QD Take [address] e glycol 4-25 04-28 by mouth [facility] (GLYCOLAX) 00:00: 23:59 daily for M edical 17 gram 00 :00 3 days. Center packet polyethylen 2022-0 2022- No 17g QD Take [address] e glycol 4-25 04-28 by mouth [facility] (GLYCOLAX) 00:00: 23:59 daily for M edical 17 gram 00 :00 3 days. Center packet polyethylen 2022-0 2022- No 17g QD Take [address] e glycol 4-25 04-28 by mouth [facility] (GLYCOLAX) 00:00: 23:59 daily for M edical 17 gram 00 :00 3 days. Center packet dapaglifloz 2022-0 2022- No 10mg QD Take [address] [facility] 4[facility]24 04-24 [facility] (Farxiga[facility] 21:12: 00:00 daily. Medic al 10 mg 46 :00 Center tablet dapaglifloz 2022-0 2022- No 10mg QD Take [address] [facility] 4-24 04-24 [facility] (Farxiga) 21:12: 00:00 daily. Medic al 10 mg 46 :00 Center tablet dapaglifloz 2022-0 2022- No 10mg QD Take [address] [facility] 4-24 04-24 [facility] (Farxiga) 21:12: 00:00 daily. Medic al 10 mg 46 :00 Center tablet dapaglifloz 2022-0 2022- No 10mg QD Take [address] [facility] 4-24 04-24 [facility] (Farxiga) 21:12: 00:00 daily. Medic al 10 mg 46 :00 Center tablet dapaglifloz 2022-0 2022- No 10mg QD Take [address] [facility] 4-24 04-24 [facility] (Farxiga) 21:12: 00:00 daily. Medic al 10 mg 46 :00 Center tablet dapaglifloz 2022-0 2022- No 10mg QD Take [address] [facility] 4-24 04-24 [facility] (Farxiga) 21:12: 00:00 daily. Medic al 10 mg 46 :00 Center tablet dapaglifloz 2022-0 2022- No 10mg QD Take [address] [facility] 03-18-24 [facility] (Farxiga) 21:12: 00:00 daily. Medic al 10 mg 46 :00 Center tablet dapaglifloz 2022-0 2022- No 10mg QD Take [address] [facility] 03-18-24 [facility] (Farxiga) 21:12: 00:00 daily. Medic al 10 mg 46 :00 Center tablet dapaglifloz 2022-0 2022- No 10mg QD Take [address] [facility] 03-18-24 [facility] (Farxiga) 21:12: 00:00 daily. Medic al 10 mg 46 :00 Center tablet dapaglifloz 2-0 2022- No 10mg QD Take [address] [facility] 03-18-24 [facility] (Farxiga) 21:12: 00:00 daily. Medic al 10 mg 46 :00 Center tablet dapaglifloz 2022-0 2022- No 10mg QD Take [address] [facility] 03-18-24 [facility] (Farxiga) 21:12: 00:00 daily. Medic al 10 mg 46 :00 Center tablet apixaban 2-0 2022- No 2.5mg Q.5D [facility] 2[facility]5 mg Tab 00:00: 23:59 (2.5 mg Med ical tablet 00 :00 total) by Center mouth 2 (two) times daily for 16 days. apixaban 2-0 2022- No 2.5mg Q.5D Take [facility]-10 [facility] 2[facility]5 mg Tab 00:00: 23:59 (2.5 mg Med ical tablet 00 :00 total) by Center mouth 2 (two) times daily for 16 days. apixaban 2022-0 2022- No 2.5mg Q.5D Take [facility]-10 [facility] 2[facility]5 mg Tab 00:00: 23:59 (2.5 mg Med ical tablet 00 :00 total) by Center mouth 2 (two) times daily for 16 days. apixaban 2-0 2022- No 2.5mg Q.5D Take [facility] 05-10 [facility] 2[facility]5 mg Tab 00:00: 23:59 (2.5 mg Med ical tablet 00 :00 total) by Center mouth 2 (two) times daily for 16 days. apixaban 2-0 2022- No 2.5mg Q.5D Take [facility] 4-[facility] 05-10 [facility] 2[facility]5 mg Tab 00:00: 23:59 (2.5 mg Med ical tablet 00 :00 total) by Center mouth 2 (two) times daily for 16 days. apixaban 2-0 2022- No 2.5mg Q.5D Take [facility] 4-[facility] 05-10 [facility] 2[facility]5 mg Tab 00:00: 23:59 (2.5 mg Med ical tablet 00 :00 total) by Center mouth 2 (two) times daily for 16 days. apixaban 2-0 2022- No 2.5mg Q.5D Take [facility] 4-[facility] 05-10 [facility] 2[facility]5 mg Tab 00:00: 23:59 (2.5 mg Med ical tablet 00 :00 total) by Center mouth 2 (two) times daily for 16 days. apixaban 2-0 2022- No 2.5mg Q.5D Take [facility] 4-[facility] 05-10 [facility] 2[facility]5 mg Tab 00:00: 23:59 (2.5 mg Med ical tablet 00 :00 total) by Center mouth 2 (two) times daily for 16 days. apixaban 2-0 2022- No 2.5mg Q.5D Take [facility] 4-[facility] 05-10 [facility] 2.5 mg Tab 00:00: 23:59 (2.5 mg Med ical tablet 00 :00 total) by Center mouth 2 (two) times daily for 16 days. apixaban 2-0 2022- No 2.5mg Q.5D Take [facility] 4-[facility] 05-10 [facility] 2.5 mg Tab 00:00: 23:59 (2.5 mg Med ical tablet 00 :00 total) by Center mouth 2 (two) times daily for 16 days. apixaban 2021- No 2.5mg Q.5D Take [facility] 4-[facility] 05-10 [facility] 2.5 mg Tab 00:00: 23:59 (2.5 mg Med ical tablet 00 :00 total) by Center mouth 2 (two) times daily for 16 days. HYDROcodone 2021- No 1{tbl} Take [address] [facility] -acetaminop 4-18 04-28 tablet by [place] ([place] 00:00: 23:59 mouth Medic al 5-325) 00 :00 every 6 Center 5-325 mg (six) per tablet hours as needed for Pain for up to 10 days. Max Daily Amount: 4 tablets HYDROcodone 2021- No 1{tbl} Take [address] -acetaminop 4-18 04-28 tablet by [place] ([place] 00:00: 23:59 mouth Medic al 5-325) 00 :00 every 6 Center 5-325 mg (six) per tablet hours as needed for Pain for up to 10 days. Max Daily Amount: 4 tablets HYDROcodone 2021-2021- No 1{tbl} Take [address] -acetaminop 4-18 04-28 tablet by [place] ([place] 00:00: 23:59 mouth Medic al 5-325) 00 :00 every 6 Center 5-325 mg (six) per tablet hours as needed for Pain for up to 10 days. Max Daily Amount: 4 tablets HYDROcodone 2021-2021- No 1{tbl} Take [address] -acetaminop 4-18 04-28 tablet by [place] ([place] 00:00: 23:59 mouth Medic al 5-325) 00 :00 every 6 Center 5-325 mg (six) per tablet hours as needed for Pain for up to 10 days. Max Daily Amount: 4 tablets HYDROcodone 2021-2021- No 1{tbl} Take [address] -acetaminop 4-18 04-28 tablet by [place] ([place] 00:00: 23:59 mouth Medic al 5-325) 00 :00 every 6 Center 5-325 mg (six) per tablet hours as needed for Pain for up to 10 days. Max Daily Amount: 4 tablets HYDROcodone 2021-2021- No 1{tbl} Take [address] -acetaminop 4-18 04-28 tablet by [place] ([place] 00:00: 23:59 mouth Medic al 5-325) 00 :00 every 6 Center 5-325 mg (six) per tablet hours as needed for Pain for up to 10 days. Max Daily Amount: 4 tablets HYDROcodone 2021-2021- No 1{tbl} Take [address] -acetaminop 4-18 04-28 tablet by [place] ([place] 00:00: 23:59 mouth Medic al 5-325) 00 :00 every 6 Center 5-325 mg (six) per tablet hours as needed for Pain for up to 10 days. Max Daily Amount: 4 tablets HYDROcodone 2021-2021- No 1{tbl} Take [address] -acetaminop 4-18 04-28 tablet by [place] ([place] 00:00: 23:59 mouth Medic al 5-325) 00 :00 every 6 Center 5-325 mg (six) per tablet hours as needed for Pain for up to 10 days. Max Daily Amount: 4 tablets HYDROcodone 2021-2021- No 1{tbl} Take [address] -acetaminop 4-18 04-28 tablet by [place] ([place] 00:00: 23:59 mouth Medic al 5-325) 00 :00 every 6 Center 5-325 mg (six) per tablet hours as needed for Pain for up to 10 days. Max Daily Amount: 4 tablets HYDROcodone 2021-2021- No 1{tbl} Take [address] -acetaminop 4-18 04-28 tablet by [place] ([place] 00:00: 23:59 mouth Medic al 5-325) 00 :00 every 6 Center 5-325 mg (six) per tablet hours as needed for Pain for up to 10 days. Max Daily Amount: 4 tablets HYDROcodone 2021-2021- No 1{tbl} Take [address] -acetaminop 4-18 04-28 tablet by [place] ([place] 00:00: 23:59 mouth Medic al 5-325) 00 :00 every 6 Center 5-325 mg (six) per tablet hours as needed for Pain for up to 10 days. Max Daily Amount: 4 tablets HYDROcodone 2021- No 1{tbl} Take [address] -acetaminop 4-12 04-12 tablet by [place] ([place] 13:02: 00:00 mouth Medic al 5-325) 06 :00 every 4 Center 5-325 mg (four) per tablet hours as needed for Pain. HYDROcodone 2021- No 1{tbl} Take [address] -acetaminop 4-12 04-12 tablet by [place] ([place] 13:02: 00:00 mouth Medic al 5-325) 06 :00 every 4 Center 5-325 mg (four) per tablet hours as needed for Pain. HYDROcodone 2021- No 1{tbl} Take [address] -acetaminop 4-12 04-12 tablet by [place] ([place] 13:02: 00:00 mouth Medic al 5-325) 06 :00 every 4 Center 5-325 mg (four) per tablet hours as needed for Pain. HYDROcodone 2021- No 1{tbl} Take [address] -acetaminop 4-12 04-12 tablet by [place] ([place] 13:02: 00:00 mouth Medic al 5-325) 06 :00 every 4 Center 5-325 mg (four) per tablet hours as needed for Pain. HYDROcodone 2021- No 1{tbl} Take [address] -acetaminop 4-12 04-12 tablet by [place] [facility] ([place] 13:02: 00:00 mouth Medic al 5-325) 06 :00 every 4 Center 5-325 mg (four) per tablet hours as needed for Pain. HYDROcodone 2021- No 1{tbl} Take [address] -acetaminop 4-12 04-12 tablet by [place] [facility] ([place] 13:02: 00:00 mouth Medic al 5-325) 06 :00 every 4 Center 5-325 mg (four) per tablet hours as needed for Pain. HYDROcodone 2021- No 1{tbl} Take [address] -acetaminop 4-12 04-12 tablet by [place] [facility] ([place] 13:02: 00:00 mouth Medic al 5-325) 06 :00 every 4 Center 5-325 mg (four) per tablet hours as needed for Pain. HYDROcodone 2021- No 1{tbl} Take [address] -acetaminop 4-12 04-12 tablet by [place] [facility] ([place] 13:02: 00:00 mouth Medic al 5-325) 06 :00 every 4 Center 5-325 mg (four) per tablet hours as needed for Pain. HYDROcodone 2021- No 1{tbl} Take [address] -acetaminop 4-12 04-12 tablet by [place] [facility] ([place] 13:02: 00:00 mouth Medic al 5-325) 06 :00 every 4 Center 5-325 mg (four) per tablet hours as needed for Pain. HYDROcodone 2021- No 1{tbl} Take [address] -acetaminop 4-12 04-12 tablet by [place] [facility] ([place] 13:02: 00:00 mouth Medic al 5-325) 06 :00 every 4 Center 5-325 mg (four) per tablet hours as needed for Pain. HYDROcodone 2021- No 1{tbl} Take [address] -acetaminop 4-12 04-12 tablet by [place] [facility] ([place] 13:02: 00:00 mouth Medic al 5-325) 06 :00 every 4 Center 5-325 mg (four) per tablet hours as needed for Pain. losartan-hy 2021- No 1{tbl} QD Take [address] droCHLOROth 03-03 tablet by [facility] 10:54: 00:00 mouth Medical (HYZAAR) 56 :00 daily. Center 50-12.5 mg per tablet carvediloL 2021- No 25mg Take [address] [facility] ([facility]) 25 03-03 by mouth 2 [facility] tablet 10:54: 00:00 (two) Medica l 56 :00 times Center daily with breakfast and dinner. losartan-hy 2021- No 1{tbl} QD Take [address] droCHLOROth 4- 04-09 tablet by [facility] 10:54: 00:00 mouth Medical (HYZAAR) 56 :00 daily. Center 50-12.5 mg per tablet carvediloL 2021- No 25mg Take [address] [facility] ([facility]G) 25 4- 04-09 by mouth 2 [facility] tablet 10:54: 00:00 (two) Medica l 56 :00 times Center daily with breakfast and dinner. losartan-2021- No 1{tbl} QD Take [address] droCHLOROth 4- 04-09 tablet by [facility] 10:54: 00:00 mouth Medical (HYZAAR) 56 :00 daily. Center 50-12.5 mg per tablet carvediloL 2021- No 25mg Take [address] [facility] ([facility]) 25 03-03-09 by mouth 2 [facility] tablet 10:54: 00:00 (two) Medica l 56 :00 times Center daily with breakfast and dinner. losartan-2021- No 1{tbl} QD Take [address] droCHLOROth 4-07 29-09 tablet by [facility] 10:54: 00:00 mouth Medical (HYZAAR) 56 :00 daily. Center 50-12.5 mg per tablet carvediloL 2021- No 25mg Take [address] [facility] ([facility]) 25 03-03-09 by mouth 2 [facility] tablet 10:54: 00:00 (two) Medica l 56 :00 times Center daily with breakfast and dinner. losartan-2021- No 1{tbl} QD Take [address] droCHLOROth 4- 04-09 tablet by [facility] 10:54: 00:00 mouth Medical (HYZAAR) 56 :00 daily. Center 50-12.5 mg per tablet carvediloL 2021- No 25mg Take [address] [facility] ([facility]) 25 4- 04-09 by mouth 2 [facility] tablet 10:54: 00:00 (two) Medica l 56 :00 times Center daily with breakfast and dinner. losartan-2021- No 1{tbl} QD Take [address] droCHLOROth 03-03- tablet by [facility] 10:54: 00:00 mouth Medical (HYZAAR) 56 :00 daily. Center 50-12.5 mg per tablet carvediloL 2- No 25mg Take [address] [facility] ([facility]G) 25 03-03 by mouth 2 [facility] tablet 10:54: 00:00 (two) Medica l 56 :00 times Center daily with breakfast and dinner. losartan-2021- No 1{tbl} QD Take [address] droCHLOROth 03-03- tablet by [facility] 10:54: 00:00 mouth Medical (HYZAAR) 56 :00 daily. Center 50-12.5 mg per tablet carvediloL 2021-2021- No 25mg Take [address] [facility] ([facility]) 25 03-03 by mouth 2 [facility] tablet 10:54: 00:00 (two) Medica l 56 :00 times Center daily with breakfast and dinner. losartan-hy 2021- No 1{tbl} QD Take [address] droCHLOROth 03-03 tablet by [facility] 10:54: 00:00 mouth Medical (HYZAAR) 56 :00 daily. Center 50-12.5 mg per tablet carvediloL 2021- No 25mg Take [address] [facility] ([facility]) 25 03-03 by mouth 2 [facility] tablet 10:54: 00:00 (two) Medica l 56 :00 times Center daily with breakfast and dinner. losartan-2021- No 1{tbl} QD Take [address] droCHLOROth 03-03- tablet by [facility] 10:54: 00:00 mouth Medical (HYZAAR) 56 :00 daily. Center 50-12.5 mg per tablet carvediloL 2021-2- No 25mg Take [address] [facility] ([facility]G) 25 03-03-09 by mouth 2 [facility] tablet 10:54: 00:00 (two) Medica l 56 :00 times Center daily with breakfast and dinner. losartan-hy 2021- No 1{tbl} QD Take [address] droCHLOROth 03-03 tablet by [place] [facility] 10:54: 00:00 mouth Medical (HYZAAR) 56 :00 daily. Center 50-12.5 mg per tablet carvediloL 2021-2021- No 25mg Take [address] [facility] ([facility]G) 25 03-03 by mouth 2 [facility] tablet 10:54: 00:00 (two) Medica l 56 :00 times Center daily with breakfast and dinner. losartan-hy 2021-2021- No 1{tbl} QD Take [address] droCHLOROth 03-03 tablet by [facility] 10:54: 00:00 mouth Medical (HYZAAR) 56 :00 daily. Center 50-12.5 mg per tablet carvediloL 2021-2021- No 25mg Take [address] [facility] ([facility]G) 25 03-03 by mouth 2 [facility] tablet 10:54: 00:00 (two) Medica l 56 :00 times Center daily with breakfast and dinner. cephalexin 2021-2021- No 500mg Take [address] [facility] (KEFLEX) 03-03-24 [facility] 500 [facility] 00:00: 00:00 (500 mg Medical capsule 00 :00 total) by Center mouth every 12 (twelve) hours for 5 days. cephalexin 2021-2021- No 500mg Take [address] [facility] (KEFLEX) 03-03-24 [facility] 500 MG 00:00: 00:00 (500 mg Medical capsule 00 :00 total) by Center mouth every 12 (twelve) hours for 5 days. cephalexin 2021-0 2- No 500mg Take [address] [facility] (KEFLEX) 03-03-24 [facility] 500 MG 00:00: 00:00 (500 mg Medical capsule 00 :00 total) by Center mouth every 12 (twelve) hours for 5 days. cephalexin 2021-2- No 500mg Take [address] [facility] (KEFLEX) 03-03-24 [facility] 500 MG 00:00: 00:00 (500 mg Medical capsule 00 :00 total) by Center mouth every 12 (twelve) hours for 5 days. cephalexin 2022-0 2022- No 500mg Take [address] [facility] (KEFLEX) 03-03-24 [facility] 500 MG 00:00: 00:00 (500 mg Medical capsule 00 :00 total) by Center mouth every 12 (twelve) hours for 5 days. cephalexin 2022-0 2022- No 500mg Take [address] [facility] (KEFLEX) 03-03-24 [facility] 500 MG 00:00: 00:00 (500 mg Medical capsule 00 :00 total) by Center mouth every 12 (twelve) hours for 5 days. cephalexin 2022-0 2022- No 500mg Take [address] [facility] (KEFLEX) 03-03 [facility] 500 MG 00:00: 00:00 (500 mg Medical capsule 00 :00 total) by Center mouth every 12 (twelve) hours for 5 days. cephalexin 2-0 2022- No 500mg Take [address] [facility] (KEFLEX) 03-03 [facility] 500 MG 00:00: 00:00 (500 mg Medical capsule 00 :00 total) by Center mouth every 12 (twelve) hours for 5 days. cephalexin 2-0 2022- No 500mg Take [address] [facility] (KEFLEX) 03-0324 [facility] 500 [facility] 00:00: 00:00 (500 mg Medical capsule 00 :00 total) by Center mouth every 12 (twelve) hours for 5 days. cephalexin 2-0 2022- No 500mg Take [address] [facility] (KEFLEX) 03-0324 [facility] 500 [facility] 00:00: 00:00 (500 mg Medical capsule 00 :00 total) by Center mouth every 12 (twelve) hours for 5 days. cephalexin 2022-0 2022- No 500mg Take [address] [facility] (KEFLEX) 03-03-24 [facility] 500 MG 00:00: 00:00 (500 mg Medical capsule 00 :00 total) by Center mouth every 12 (twelve) hours for 5 days. HYDROcodone 2021-0 2- No 1{tbl} Take [address] -acetaminop 03-03 tablet by [place] ([place] 00:00: 00:00 mouth Medic al 5-325) 00 :00 every 6 Center 5-325 mg (six) per tablet hours as needed for Pain for up to 10 days. Max Daily Amount: 4 tablets HYDROcodone 2021-0 2021- No 1{tbl} Take [address] -acetaminop 4-09 04-18 tablet by [place] ([place] 00:00: 00:00 mouth Medic al 5-325) 00 :00 every 6 Center 5-325 mg (six) per tablet hours as needed for Pain for up to 10 days. Max Daily Amount: 4 tablets HYDROcodone 2021-2021- No 1{tbl} Take [address] -acetaminop 4-09 04-18 tablet by [place] ([place] 00:00: 00:00 mouth Medic al 5-325) 00 :00 every 6 Center 5-325 mg (six) per tablet hours as needed for Pain for up to 10 days. Max Daily Amount: 4 tablets HYDROcodone 2021-2021- No 1{tbl} Take [address] -acetaminop 4- 04-18 tablet by [place] ([place] 00:00: 00:00 mouth Medic al 5-325) 00 :00 every 6 Center 5-325 mg (six) per tablet hours as needed for Pain for up to 10 days. Max Daily Amount: 4 tablets HYDROcodone 2021-2021- No 1{tbl} Take [address] -acetaminop 4- 04-18 tablet by [place] ([place] 00:00: 00:00 mouth Medic al 5-325) 00 :00 every 6 Center 5-325 mg (six) per tablet hours as needed for Pain for up to 10 days. Max Daily Amount: 4 tablets HYDROcodone 2021-0 2021- No 1{tbl} Take [address] -acetaminop 4-09 04-18 tablet by [place] ([place] 00:00: 00:00 mouth Medic al 5-325) 00 :00 every 6 Center 5-325 mg (six) per tablet hours as needed for Pain for up to 10 days. Max Daily Amount: 4 tablets HYDROcodone 2021-0 2021- No 1{tbl} Take [address] -acetaminop 4-09 04-18 tablet by [place] ([place] 00:00: 00:00 mouth Medic al 5-325) 00 :00 every 6 Center 5-325 mg (six) per tablet hours as needed for Pain for up to 10 days. Max Daily Amount: 4 tablets HYDROcodone 2021-2021- No 1{tbl} Take [address] -acetaminop -07 29-18 tablet by [place] ([place] 00:00: 00:00 mouth Medic al 5-325) 00 :00 every 6 Center 5-325 mg (six) per tablet hours as needed for Pain for up to 10 days. Max Daily Amount: 4 tablets HYDROcodone 2021-2021- No 1{tbl} Take [address] -acetaminop -07 29-18 tablet by [place] ([place] 00:00: 00:00 mouth Medic al 5-325) 00 :00 every 6 Center 5-325 mg (six) per tablet hours as needed for Pain for up to 10 days. Max Daily Amount: 4 tablets HYDROcodone 2021-2021- No 1{tbl} Take [address] -acetaminop 03-03-18 tablet by [place] ([place] 00:00: 00:00 mouth Medic al 5-325) 00 :00 every 6 Center 5-325 mg (six) per tablet hours as needed for Pain for up to 10 days. Max Daily Amount: 4 tablets HYDROcodone 2021-2021- No 1{tbl} Take [address] -acetaminop -07 29-18 tablet by [place] ([place] 00:00: 00:00 mouth Medic al 5-325) 00 :00 every 6 Center 5-325 mg (six) per tablet hours as needed for Pain for up to 10 days. Max Daily Amount: 4 tablets senna 2021-2021- No 8.6mg QD Take [address] [facility] (SENOKOT) 12-01- [facility] 8[facility]6 mg 00:00: 23:59 (8.6 mg Medical tablet 00 :00 total) by Center mouth daily for 60 days. senna 2021-2021- No 8.6mg QD Take [address] [facility] ([place]) 12-01-08 tablet [facility] 8.6 mg 00:00: 23:59 (8.6 mg Medical tablet 00 :00 total) by Center mouth daily for 60 days. senna No 8.6mg QD Take [address] [facility] ([place]) 12-01- [facility] 8.6 mg 00:00: 23:59 (8.6 mg Medical tablet 00 :00 total) by Center mouth daily for 60 days. senna 2021- No 8.6mg QD Take [address] [facility] ([place]) 12-01-08 tablet [facility] 8.6 mg 00:00: 23:59 (8.6 mg Medical tablet 00 :00 total) by Center mouth daily for 60 days. senna No 8.6mg QD Take [address] [facility] ([place]) 12-01- [facility] 8.6 mg 00:00: 23:59 (8.6 mg Medical tablet 00 :00 total) by Center mouth daily for 60 days. senna No 8.6mg QD Take [address] [facility] ([place]) 12-01- tablet [facility] 8.6 mg 00:00: 23:59 (8.6 mg Medical tablet 00 :00 total) by Center mouth daily for 60 days. senna No 8.6mg QD Take [address] [facility] ([place]) 12-01- tablet [facility] 8.6 mg 00:00: 23:59 (8.6 mg Medical tablet 00 :00 total) by Center mouth daily for 60 days. senna 2021- No 8.6mg QD Take [address] [facility] ([place]) 12-01- tablet [facility] 8.6 mg 00:00: 23:59 (8.6 mg Medical tablet 00 :00 total) by Center mouth daily for 60 days. senna No 8.6mg QD Take [address] [facility] ([place]) 12-01- [facility] 8.6 mg 00:00: 23:59 (8.6 mg Medical tablet 00 :00 total) by Center mouth daily for 60 days. Vital Signs Vital Name Observation Time Observation Value Comments Source WEIGHT 2022-03-19 05:00:00 58.06 kg WEIGHT 2022-03-17 05:00:00 58.968 kg WEIGHT 2022-03-16 06:34:00 60.963 kg WEIGHT 2022-03-15 06:00:00 60.7 kg WEIGHT 2022-03-14 05:00:00 60.918 kg WEIGHT 2022-03-13 06:00:00 65.273 kg WEIGHT 2022-03-12 06:00:00 65.091 kg WEIGHT 2022-03-11 04:45:00 59.648 kg WEIGHT 2022-03-10 06:00:00 67.858 kg HEIGHT 2022-03-09 19:50:00 149.9 cm HEIGHT 2022-03-07 06:09:00 149.9 cm WEIGHT 2022-03-07 06:09:00 60.8 kg HEIGHT 2022-03-06 13:04:00 149.9 cm WEIGHT 2022-03-06 13:04:00 61.236 kg WEIGHT 2022-03-19 05:00:00 58.06 kg WEIGHT 2022-03-17 05:00:00 58.968 kg WEIGHT 2022-03-16 06:34:00 60.963 kg WEIGHT 2022-03-15 06:00:00 60.7 kg WEIGHT 2022-03-14 05:00:00 60.918 kg WEIGHT 2022-03-13 06:00:00 65.273 kg WEIGHT 2022-03-12 06:00:00 65.091 kg WEIGHT 2022-03-11 04:45:00 59.648 kg WEIGHT 2022-03-10 06:00:00 67.858 kg HEIGHT 2022-03-09 19:50:00 149.9 cm HEIGHT 2022-03-07 06:09:00 149.9 cm WEIGHT 2022-03-07 06:09:00 60.8 kg HEIGHT 2022-03-06 13:04:00 149.9 cm WEIGHT 2022-03-06 13:04:00 61.236 kg WEIGHT 2022-03-19 05:00:00 58.06 kg WEIGHT 2022-03-17 05:00:00 58.968 kg WEIGHT 2022-03-16 06:34:00 60.963 kg WEIGHT 2022-03-15 06:00:00 60.7 kg WEIGHT 2022-03-14 05:00:00 60.918 kg WEIGHT 2022-03-13 06:00:00 65.273 kg WEIGHT 2022-03-12 06:00:00 65.091 kg WEIGHT 2022-03-11 04:45:00 59.648 kg WEIGHT 2022-03-10 06:00:00 67.858 kg HEIGHT 2022-03-09 19:50:00 149.9 cm HEIGHT 2022-03-07 06:09:00 149.9 cm WEIGHT 2022-03-07 06:09:00 60.8 kg HEIGHT 2022-03-06 13:04:00 149.9 cm WEIGHT 2022-03-06 13:04:00 61.236 kg HEIGHT 2022-02-27 07:01:00 149.9 cm WEIGHT 2022-02-27 07:01:00 66.452 kg WEIGHT 2022-02-27 04:53:00 66.452 kg HEIGHT 2022-02-26 06:00:00 149.9 cm WEIGHT 2022-02-26 06:00:00 65.1 kg HEIGHT 2022-02-23 09:07:00 149 cm WEIGHT 2022-02-23 09:07:00 67 kg HEIGHT 2022-02-27 07:01:00 149.9 cm WEIGHT 2022-02-27 07:01:00 66.452 kg WEIGHT 2022-02-27 04:53:00 66.452 kg HEIGHT 2022-02-26 06:00:00 149.9 cm WEIGHT 2022-02-26 06:00:00 65.1 kg HEIGHT 2022-02-23 09:07:00 149 cm WEIGHT 2022-02-23 09:07:00 67 kg HEIGHT 2022-02-27 07:01:00 149.9 cm WEIGHT 2022-02-27 07:01:00 66.452 kg WEIGHT 2022-02-27 04:53:00 66.452 kg HEIGHT 2022-02-26 06:00:00 149.9 cm WEIGHT 2022-02-26 06:00:00 65.1 kg HEIGHT 2022-02-23 09:07:00 149 cm WEIGHT 2022-02-23 09:07:00 67 kg WEIGHT 2021-11-30 05:47:00 72.666 kg HEIGHT 2021-11-29 19:43:00 149.9 cm WEIGHT 2021-11-29 19:43:00 73.347 kg HEIGHT 2021-11-29 14:29:00 149.9 cm WEIGHT 2021-11-29 14:29:00 73.936 kg WEIGHT 2021-11-30 05:47:00 72.666 kg HEIGHT 2021-11-29 19:43:00 149.9 cm WEIGHT 2021-11-29 19:43:00 73.347 kg HEIGHT 2021-11-29 14:29:00 149.9 cm WEIGHT 2021-11-29 14:29:00 73.936 kg Systolic blood 2022-06-29 10:32:00 145 mm[Hg] [facility] Diastolic blood 2022-06-29 10:32:00 66 mm[Hg] [facility] Heart rate 2022-06-29 10:32:00 69 /min [facility] Body temperature 2022-06-29 10:32:00 36.11 Jessica [facility] Respiratory rate 2022-06-29 10:32:00 19 /min [facility] Oxygen saturation in 2022-06-29 10:32:00 100 /min [facility] Arterial blood by Medical Ce [facility]ter Pulse oximetry Body weight 2022-03-19 05:00:00 58.06 kg [facility] BMI 2022-03-19 05:00:00 25.85 kg/m2 [facility] Body height 2022-03-09 19:50:00 149.9 cm [facility] Procedures Procedure Date / Time Performing Clinician Source Performed CBC W/AUTO DIFF WITH 2022-12-11 09:40:00 [facility] RANDOM URINE 2022-12-11 09:40:00 [facility] of PROTEIN/CREATININE Medicine CANCER ANTIGEN 125 2022-12-11 09:40:00 [facility] COMPREHENSIVE METABOLIC 2022-12-11 09:40:00 [facility] PANEL Medicine CBC W ABSOLUTE NEUTROPHIL 2022-12-11 06:09:42 [facility] RANDOM URINE 2022-11-20 08:40:00 [facility] ge of PROTEIN/CREATININE Medicine CANCER ANTIGEN 125 2022-11-20 08:40:00 [facility] COMPREHENSIVE METABOLIC 2022-11-20 08:40:00 [facility] PANEL [facility] CBC W/AUTO DIFF WITH 2022-11-20 08:40:00 [facility] PLATELETS [facility] CBC W ABSOLUTE NEUTROPHIL 2022-11-20 06:18:00 [facility] COUNT [facility] RANDOM URINE 2022-10-30 09:03:00 [facility] ge of PROTEIN/CREATININE Medicine CANCER ANTIGEN 125 2022-10-30 09:03:00 [facility] COMPREHENSIVE METABOLIC 2022-10-30 09:03:00 [facility] PANEL [facility] CBC W/AUTO DIFF WITH 2022-10-30 09:03:00 [facility] PLATELETS [facility] CBC W ABSOLUTE NEUTROPHIL 2022-10-30 06:21:28 Denzel [facility] COUNT [facility] CBC W/AUTO DIFF WITH 2022-10-02 10:25:44 [facility] PLATELETS [facility] COMPREHENSIVE METABOLIC 2022-10-02 10:25:44 [facility] RANDOM URINE 2022-09-04 07:46:00 [facility] PROTEIN/CREATININE Medicine TSH 2022-09-04 07:46:00 [facility] T4 FREE 2022-09-04 07:46:00 [facility] Medicine CANCER ANTIGEN 125 2022-09-04 07:46:00 [facility] COMPREHENSIVE METABOLIC 2022-09-04 07:46:00 [facility] PANEL Medicine MAGNESIUM 2022-09-04 07:46:00 [facility] CBC W/AUTO DIFF WITH 2022-09-04 07:46:00 [facility] PLATELETS [facility] CBC W ABSOLUTE NEUTROPHIL 2022-09-04 06:25:38 Ba [facility] COUNT [facility] RANDOM URINE 2022-07-10 08:22:42 [facility] ge of PROTEIN/CREATININE Medicine CANCER ANTIGEN 125 2022-07-10 08:14:50 [facility] COMPREHENSIVE METABOLIC 2022-07-10 08:14:50 [facility] PANEL Medicine CYTOLOGY 2022-06-29 11:01:00 Urbanelli, Jackie [facility] XR CHEST 1 VIEW PORTABLE / 2022-06-29 10:26:[address] [facility] BEDSIDE [facility] US THORACENTESIS 2022-06-29 09:50:[address] [facility] PROTHROMBIN TIME/INR 2022-06-29 07:38:00 Jackie Villalta [facility] CBC W/PLT COUNT & AUTO 2022-06-29 07:38:[address] [facility] CBC W/PLT COUNT & AUTO 2022-06-29 07:38:00 Nicolas Villaltaa [facility] AMB REF TO INTERVENTIONAL 2022-06-26 09:53:58 Denzel [facility] EXTERNAL Medicine CBC W/PLT COUNT & AUTO 2022-06-05 07:34:[address] [facility] COMPREHENSIVE METABOLIC 2022-06-05 07:34:[address] [facility] MAGNESIUM 2022-06-05 07:34:00 Graciela, Ronaldo [facility] CBC W/PLT COUNT & AUTO 2022-06-05 07:34:[address] [facility] MAGNESIUM 2022-05-29 08:06:[address] [facility] CBC W/PLT COUNT & AUTO 2022-05-29 08:06:[address] [facility] COMPREHENSIVE METABOLIC 2022-05-29 08:06:[address] [facility] CBC W/PLT COUNT & AUTO 2022-05-29 08:06:[address] [facility] CBC W/PLT COUNT & AUTO 2022-05-08 07:49:[address] [facility] MAGNESIUM 2022-05-08 07:49:00 Graciela, Ronaldo [facility] COMPREHENSIVE METABOLIC 2022-05-08 07:49:00 Graciela, Ronaldo [facility] CBC W/PLT COUNT & AUTO 2022-05-08 07:49:[address] [facility] CBC W ABSOLUTE NEUTROPHIL 2022-05-08 06:20:59 Denzel [facility] COUNT [facility] COMPREHENSIVE METABOLIC 2022-05-08 06:20:59 [facility] PANEL [facility] MAGNESIUM 2022-05-08 06:20:59 [facility] TEMPUS XT TISSUE NGS 2022-05-04 13:59:20 [facility] MAGNESIUM 2022-05-01 08:50:[address] [facility] CBC W/PLT COUNT & AUTO 2022-05-01 08:50:[address] [facility] COMPREHENSIVE METABOLIC 2022-05-01 08:50:00 Ronaldo Owens [facility] CBC W/PLT COUNT & AUTO 2022-05-01 08:50:[address] [facility] TEMPUS XT TISSUE NGS 2022-05-01 08:41:56 [facility] CANCER ANTIGEN 125 2022-04-10 06:35:57 [facility] MAGNESIUM 2022-04-10 06:35:57 [facility] CBC W ABSOLUTE NEUTROPHIL 2022-04-10 06:35:57 [facility] COUNT [facility] METABOLIC 2022-04-10 06:35:57 [facility] PANEL [facility] CANCER ANTIGEN 125 2022-04-09 13:12:00 [facility] MAGNESIUM 2022-04-09 13:12:00 [facility] 2022-04-09 13:12:00 [facility] PANEL [facility] CBC W/AUTO DIFF WITH 2022-04-09 13:12:00 [facility] CBC W ABSOLUTE NEUTROPHIL 2022-04-09 13:06:09 [facility] COUNT [facility] POCT-GLUCOSE METER 2022-03-19 11:11:[address] [facility] POCT-GLUCOSE METER 2022-03-19 07:07:00 [facility] W/PLT COUNT & AUTO 2022-03-19 04:16:[address] [facility] COMPREHENSIVE METABOLIC 2022-03-19 04:16:00 Motomasa, Nava veras [facility] MAGNESIUM 2022-03-19 04:16:00 Moufwest, Nava Mehta [facility] PHOSPHORUS 2022-03-19 04:16:00 Moufwest, Nava Mehta [facility] CBC W/PLT COUNT & AUTO 2022-03-19 04:16:00 Moufwest, Nava Mehta [facility] POCT-GLUCOSE METER 2022-03-18 21:18:00 Graciela [facility] POCT-GLUCOSE METER 2022-03-18 16:58:[address] POCT-GLUCOSE METER 2022-03-18 11:15:[address] [facility] POCT-GLUCOSE METER 2022-03-18 07:53:[address] CBC W/PLT COUNT & AUTO 2022-03-18 05:40:00 Moufwest, Nava [facility] COMPREHENSIVE METABOLIC 2022-03-18 05:40:00 MoNava randolph [facility] MAGNESIUM 2022-03-18 05:40:00 MoNava randolph [facility] PHOSPHORUS 2022-03-18 05:40:00 Moufarrrebeca, Nava Mehta [facility] CBC W/PLT COUNT & AUTO 2022-03-18 05:40:[address] [facility] POCT-GLUCOSE METER 2022-03-17 21:57:[address] [facility] POCT-GLUCOSE METER 2022-03-17 16:39:[address] [facility] POCT-GLUCOSE METER 2022-03-17 11:20:00 Graciela [facility] POCT-GLUCOSE METER 2022-03-17 07:11:00 Ronaldo Owens [facility] CBC W/PLT COUNT & AUTO 2022-03-17 05:25:[address] [facility] COMPREHENSIVE METABOLIC 2022-03-17 05:25:00 MoNava randolph [facility] MAGNESIUM 2022-03-17 05:25:00 MoufNava dodson [facility] PHOSPHORUS 2022-03-17 05:25:00 MoufNava dodson [facility] CBC W/PLT COUNT & AUTO 2022-03-17 05:25:[address] [facility] POCT-GLUCOSE METER 2022-03-16 21:15:00 Graciela [facility] POCT-GLUCOSE METER 2022-03-16 16:50:00 Graciela [facility] SARS-COV2/RT-PCR ([facility] & 2022-03-16 15:07:00 Nava Alvarado [facility] REF [facility] POCT-GLUCOSE METER 2022-03-16 11:27:00 Graciela [facility] POCT-GLUCOSE METER 2022-03-16 07:33:00 Graciela [facility] CBC W/PLT COUNT & AUTO 2022-03-16 03:31:[address] [facility] COMPREHENSIVE METABOLIC 2022-03-16 03:31:00 MoNava randolph [facility] MAGNESIUM 2022-03-16 03:31:00 MoNava randolph [facility] PHOSPHORUS 2022-03-16 03:31:00 MoNava randolph [facility] CBC W/PLT COUNT & AUTO 2022-03-16 03:31:[address] [facility] POCT-GLUCOSE METER 2022-03-15 20:39:00 Graciela, [facility] POCT-GLUCOSE METER 2022-03-15 17:02:[address] [facility] POCT-GLUCOSE METER 2022-03-15 11:26:[address] [facility] POCT-GLUCOSE METER 2022-03-15 07:33:[address] CBC W/PLT COUNT & AUTO 2022-03-15 04:13:[address] [facility] COMPREHENSIVE METABOLIC 2022-03-15 04:13:00 Nava Alvarado [facility] MAGNESIUM 2022-03-15 04:13:00 Nava Alvarado [facility] PHOSPHORUS 2022-03-15 04:13:00 Nava Alvarado [facility] CBC W/PLT COUNT & AUTO 2022-03-15 04:13:[address] [facility] POCT-GLUCOSE METER 2022-03-14 21:05:[address] [facility] CATECHOLAMINES, 2022-03-14 18:07:00 Nava Alvarado [facility] FRACTIONATED, PLASMA Medical Shane ter POCT-GLUCOSE METER 2022-03-14 16:38:[address] [facility] POCT-GLUCOSE METER 2022-03-14 15:04:00 Graciela [facility] URINE CULTURE 2022-03-14 14:26:00 Nava Alvarado [facility] URINALYSIS W/ REFLEX URINE 2022-03-14 14:26:[address] [facility] POCT-GLUCOSE METER 2022-03-14 12:01:[address] [facility] POCT-GLUCOSE METER 2022-03-14 07:42:[address] CBC W/PLT COUNT & AUTO 2022-03-14 03:48:[address] [facility] COMPREHENSIVE METABOLIC 2022-03-14 03:48:00 Motomasa, Nava Nia veras [facility] MAGNESIUM 2022-03-14 03:48:00 Motomasa, Nava Mehta [facility] PHOSPHORUS 2022-03-14 03:48:00 MoNava randolph [facility] CBC W/PLT COUNT & AUTO 2022-03-14 03:48:00 MoufNava dodson [facility] POCT-GLUCOSE METER 2022-03-13 21:12:[address] [facility] POCT-GLUCOSE METER 2022-03-13 17:03:[address] POCT-GLUCOSE METER 2022-03-13 11:46:[address] [facility] POCT-GLUCOSE METER 2022-03-13 07:24:[address] CBC W/PLT COUNT & AUTO 2022-03-13 04:14:00 Moufwest, Nava [facility] COMPREHENSIVE METABOLIC 2022-03-13 04:14:00 MoNava randolph Nia veras [facility] MAGNESIUM 2022-03-13 04:14:00 Christiano Nava [facility] PHOSPHORUS 2022-03-13 04:14:00 Moufwest, Nava [facility] CBC W/PLT COUNT & AUTO 2022-03-13 04:14:00 Moufwest Nava [facility] POCT-GLUCOSE METER 2022-03-12 21:44:[address] [facility] POCT-GLUCOSE METER 2022-03-12 16:42:[address] [facility] POCT-GLUCOSE METER 2022-03-12 11:30:[address] [facility] POCT-GLUCOSE METER 2022-03-12 07:48:00 Graciela, [facility] POCT-GLUCOSE METER 2022-03-12 04:18:[address] CBC W/PLT COUNT & AUTO 2022-03-12 03:26:[address] [facility] COMPREHENSIVE METABOLIC 2022-03-12 03:26:00 Nava Alvarado [facility] MAGNESIUM 2022-03-12 03:26:00 MoNava randolph [facility] PHOSPHORUS 2022-03-12 03:26:00 Moufwest, Nava [facility] CBC W/PLT COUNT & AUTO 2022-03-12 03:26:[address] [facility] POCT-GLUCOSE METER 2022-03-11 20:34:00 [facility] 2022-03-11 16:41:00 [facility] POCT-[facility]SE [facility]ER 2022-03-11 11:47:00 [facility] POCT-[facility]SE [facility]ER 2022-03-11 07:50:[address] [facility] CBC W/PLT COUNT & AUTO 2022-03-11 05:15:[address] [facility] COMPREHENSIVE METABOLIC 2022-03-11 05:15:00 [facility] MAGNESIUM 2022-03-11 05:15:00 [facility] PHOSPHORUS 2022-03-11 05:15:[address] [facility] CBC W/PLT COUNT & AUTO 2022-03-11 05:15:00 [facility] POCT-GLUCOSE METER 2022-03-10 21:18:00 [facility] POCT-[facility]UCOSE METER 2022-03-10 16:29:[address] [facility] POCT-GLUCOSE METER 2022-03-10 12:23:[address] POCT-GLUCOSE METER 2022-03-10 09:40:00 [facility] XR CHEST 1 VIEW PORTABLE / 2022-03-10 06:50:[address] [facility] PT/APTT 2022-03-10 04:48:00 Mofroberta [facility] CBC W/PLT COUNT & AUTO 2022-03-10 04:47:00 [facility] COMPREHENSIVE METABOLIC 2022-03-10 04:47:00 [facility] MAGNESIUM 2022-03-10 04:47:00 Anne [facility] PHOSPHORUS 2022-03-10 04:47:00 [facility] W/[facility]T COUNT & AUTO 2022-03-10 04:47:00 [facility] POCT-GLUCOSE METER 2022-03-09 17:54:[address] [facility] POCT-GLUCOSE METER 2022-03-09 11:52:[address] [facility] CBC W/PLT COUNT & AUTO 2022-03-09 02:45:00 [facility] COMPREHENSIVE METABOLIC 2022-03-09 02:45:00 Anne [facility] MAGNESIUM 2022-03-09 02:45:00 Anne [facility] PHOSPHORUS 2022-03-09 02:45:00 Anne [facility] PT/APTT 2022-03-09 02:45:00 [facility] CBC W/PLT COUNT & AUTO 2022-03-09 02:45:00 Mofor, Chucky Mensah [facility] XR CHEST 1 VIEW PORTABLE / 2022-03-09 01:49:[address] [facility] PREPARE LEUKO-REDUCED RBC 2022-03-08 23:54:00 Nava Alvarado Ma [facility] PREPARE RBC 2022-03-08 23:54:00 Jose Luis Sellers [facility] POCT-GLUCOSE METER 2022-03-08 17:45:00 [facility] BASIC METABOLIC PANEL 2022-03-08 16:58:00 AnneChucky Makenna Scales [facility] RRL CRITICAL LABS 2022-03-08 12:03:00 Vo, [facility] es (ABG,NA,K,H&H,GLUCOSE) Medical C enter BLOOD GAS, ARTERIAL 2022-03-08 12:03:00 Vo, [facility] SODIUM NA-STAT LAB 2022-03-08 12:03:00 Vo, [facility] POTASSIUM-STAT LAB 2022-03-08 12:03:00 Vo, [facility] GLUCOSE-STAT LAB 2022-03-08 12:03:00 Vo, [facility] HGB/HCT (H&H) - STAT LAB 2022-03-08 12:03:00 , [facility] POCT-GLUCOSE METER 2022-03-08 11:54:00 [facility] POCT-GLUCOSE METER 2022-03-08 05:19:00 [facility] BLOOD GAS, ARTERIAL 2022-03-08 05:02:00 Vo, [facility] CBC W/PLT COUNT & AUTO 2022-03-08 04:14:00 Vo, [facility] RRL CRITICAL LABS 2022-03-08 04:14:00 [facility], [facility] (ABG,NA,K,H&H,GLUCOSE) Medical C enter COMPREHENSIVE METABOLIC 2022-03-08 04:14:00 Vo, [facility] MAGNESIUM 2022-03-08 04:14:00 Vo, [facility] PHOSPHORUS 2022-03-08 04:14:00 Vo, [facility] PT/APTT 2022-03-08 04:14:00 Vo, [facility] SODIUM NA-STAT LAB 2022-03-08 04:14:00 Vo, [facility] POTASSIUM-STAT LAB 2022-03-08 04:14:00 Vo, [facility] GLUCOSE-STAT LAB 2022-03-08 04:14:00 Vo, [facility] HGB/HCT (H&H) - STAT LAB 2022-03-08 04:14:00 Vo, [facility] CBC W/PLT COUNT & AUTO 2022-03-08 04:14:00 Vo, [facility] (CELLAVISION MANUAL DIFF) 2022-03-08 04:14:00 Vo, [facility] POCT-GLUCOSE METER 2022-03-08 01:03:00 Ronaldo Owens [facility] XR CHEST 1 VIEW PORTABLE / 2022-03-08 00:54:00 Vo, Pedro Scales [facility] XR CHEST 1 VIEW PORTABLE / 2022-03-07 22:16:00 Peña Singh [facility] RRL CRITICAL LABS 2022-03-07 19:38:00 Vo, [facility] (ABG,NA,K,H&H,GLUCOSE) Medical C enter BLOOD GAS, ARTERIAL 2022-03-07 19:38:00 Nava Alvarado [facility] XR ABDOMEN/KUB 1 VIEW 2022-03-07 19:23:00 Vo, [facility] PT/APTT 2022-03-07 18:47:00 Vo, [facility] CBC W/PLT COUNT & AUTO 2022-03-07 18:47:00 Vo, [facility] COMPREHENSIVE METABOLIC 2022-03-07 18:47:00 Vo, [facility] MAGNESIUM 2022-03-07 18:47:00 Vo, [facility] PHOSPHORUS 2022-03-07 18:47:00 Vo, [facility] CBC W/PLT COUNT & AUTO 2022-03-07 18:47:[address] [facility] POCT-GLUCOSE METER 2022-03-07 17:46:00 Graciela [facility] RRL CRITICAL LABS 2022-03-07 16:20:05 Vo, [facility] es (ABG,NA,K,H&H,GLUCOSE) Medical C enter BLOOD GAS, ARTERIAL 2022-03-07 16:20:05 Graciela [facility] SODIUM NA-STAT LAB 2022-03-07 16:20:05 [facility] POT[facility] 2022-03-07 16:20:05 Graciela [facility] GLUCOSE-STAT LAB 2022-03-07 16:20:[address] [facility] HGB/HCT (H&H) - STAT LAB 2022-03-07 16:20:05 Ronaldo Owens [facility] TRANSFUSE LEUKO-REDUCED 2022-03-07 15:39:00 Jose Luis Sellers [facility] RED BLOOD CELLS [facility] CALCIUM, IONIZED 2022-03-07 15:01:04 [facility] 2022-03-07 15:01:01 Joshua, [facility] es (ABG,NA,K,H&H,GLUCOSE) Medical C enter BLOOD GAS, ARTERIAL 2022-03-07 15:01:[address] SODIUM NA-STAT LAB 2022-03-07 15:01:01 GracielaRonaldo lopez [facility] POTASSIUM-STAT LAB 2022-03-07 15:01:01 Graciela [facility] GLUCOSE-STAT LAB 2022-03-07 15:01:01 Graciela [facility] HGB/HCT (H&H) - STAT LAB 2022-03-07 15:01:01 Graciela Ronaldo Scales [facility] RRL CRITICAL LABS 2022-03-07 14:20:46 Jose Luis Sellers [facility] (ABG,NA,K,H&H,GLUCOSE) Medical C enter CALCIUM, IONIZED 2022-03-07 14:20:46 Marlo [facility] BLOOD GAS, ARTERIAL 2022-03-07 14:20:46 Marlo [facility] SODIUM NA-STAT LAB 2022-03-07 14:20:46 Marlo [facility] POTASSIUM-STAT LAB 2022-03-07 14:20:46 Marlo [facility] GLUCOSE-STAT LAB 2022-03-07 14:20:46 Marlo [facility] HGB/HCT (H&H) - STAT LAB 2022-03-07 14:20:46 Marlo [facility] RRL CRITICAL LABS 2022-03-07 13:49:26 Jose Luis Sellers [facility] (ABG,NA,K,H&H,GLUCOSE) Medical C enter CALCIUM, IONIZED 2022-03-07 13:49:26 Marlo [facility] BLOOD GAS, ARTERIAL 2022-03-07 13:49:26 Marlo [facility] SODIUM NA-STAT LAB 2022-03-07 13:49:26 Marlo [facility] POTASSIUM-STAT LAB 2022-03-07 13:49:26 Marlo [facility] GLUCOSE-STAT LAB 2022-03-07 13:49:26 [facility] (H&H) - STAT LAB 2022-03-07 13:49:26 Jose Luis Sellers [facility] TRANSFUSE LEUKO-REDUCED 2022-03-07 13:33:00 Jose Luis Sellers [facility] RED BLOOD CELLS [facility] RRL CRITICAL LABS 2022-03-07 13:08:31 [facility] (ABG,NA,K,H&H,GLUCOSE) Medical C enter CALCIUM, IONIZED 2022-03-07 13:08:31 Jose Luis Sellers [facility] BLOOD GAS, ARTERIAL 2022-03-07 13:08:31 Jose Luis [facility]ellers [facility] SODIUM NA-STAT LAB 2022-03-07 13:08:31 Marlo misael [facility] POTASSIUM-STAT LAB 2022-03-07 13:08:31 Jose Luis [facility]ellers [facility] GLUCOSE-STAT LAB 2022-03-07 13:08:31 Marlo [facility] HGB/HCT (H&H) - STAT LAB 2022-03-07 13:08:31 Marlo misael [facility] RRL CRITICAL LABS 2022-03-07 11:37:58 [facility] (ABG,NA,K,H&H,GLUCOSE) Medical C enter CALCIUM, IONIZED 2022-03-07 11:37:58 Jose Luis [facility] BLOOD GAS, ARTERIAL 2022-03-07 11:37:58 Jose Luis Sellers [facility] SODIUM NA-STAT LAB 2022-03-07 11:37:58 Marlo misael [facility] POTASSIUM-STAT LAB 2022-03-07 11:37:58 Marlo [facility] GLUCOSE-STAT LAB 2022-03-07 11:37:58 Jose Luis [facility] HGB/HCT (H&H) - STAT LAB 2022-03-07 11:37:[address] [facility] RRL CRITICAL LABS 2022-03-07 10:29:47 [facility] (ABG,NA,K,H&H,GLUCOSE) Medical C enter CALCIUM, IONIZED 2022-03-07 10:29:47 Marlo [facility] BLOOD GAS, ARTERIAL 2022-03-07 10:29:47 Jose Luis Sellers [facility] SODIUM NA-STAT LAB 2022-03-07 10:29:47 Marlo [facility] POTASSIUM-STAT LAB 2022-03-07 10:29:47 Marlo [facility] GLUCOSE-STAT LAB 2022-03-07 10:29:47 Marlo [facility] HGB/HCT (H&H) - STAT LAB 2022-03-07 10:29:47 Marlo [facility] RRL CRITICAL LABS 2022-03-07 09:08:21 Jose Luis Sellers [facility] (ABG,NA,K,H&H,GLUCOSE) Medical C enter CALCIUM, IONIZED 2022-03-07 09:08:21 Marlo [facility] BLOOD GAS, ARTERIAL 2022-03-07 09:08:21 Marlo misael [facility] SODIUM NA-STAT LAB 2022-03-07 09:08:21 Marlo [facility] POTASSIUM-STAT LAB 2022-03-07 09:08:21 Marlo [facility] GLUCOSE-STAT LAB 2022-03-07 09:08:21 Marlo [facility] HGB/HCT (H&H) - STAT LAB 2022-03-07 09:08:21 Marlo [facility] TISSUE EXAM 2022-03-07 09:04:00 Graciela, [facility] LAP[facility], DIAGNOSTIC 2022-03-07 07:15:00 Graciela [facility] HYSTERECTOMY, ABDOMINAL 2022-03-07 07:15:00 Graciela [facility] SALPINGO-OOPHORECTOMY 2022-03-07 07:15:00 Graciela [facility] LAPAROTOMY, EXPLORATORY 2022-03-07 07:15:00 Graciela [facility] HYSTERECTOMY, TOTAL, 2022-03-07 07:15:00 Ronaldo Owens [facility] ABDOMINAL, WITH BILATERAL [facility] SALPINGO-OOPHORECTOMY, WITH OMENTECTOMY, NEOPLASM DEBULKING, AND LYMPHADENECTOMY RESECTION, SMALL INTESTINE 2022-03-07 07:15:00 Graicela [facility] APPENDECTOMY, LAPAROSCOPIC 2022-03-07 07:15:00 Graciela [facility] COMPREHENSIVE METABOLIC 2022-03-07 05:58:00 Nava Alvarado [facility] MAGNESIUM 2022-03-07 05:58:00 Nava Alvarado [facility] PHOSPHORUS 2022-03-07 05:58:00 Nava Alvarado [facility] CBC W/PLT COUNT & AUTO 2022-03-07 05:58:[address] [facility] POCT-GLUCOSE METER 2022-03-07 05:58:00 Graciela [facility] TYPE AND SCREEN, AUTOMATED 2022-03-07 05:58:00 Nava Alvarado [facility] CBC W/PLT COUNT & AUTO 2022-03-07 05:58:[address] [facility] (CELLAVISION MANUAL DIFF) 2022-03-07 05:58:00 Nava Alvarado [facility] SARS-COV2/RT-PCR ([facility] & 2022-03-05 15:48:[address] [facility] REF LABS) [facility] POCT-GLUCOSE METER 2022-03-03 07:58:00 [facility] CBC W/PLT COUNT & AUTO 2022-03-03 04:28:[address] [facility] BASIC METABOLIC PANEL 2022-03-03 04:28:00 Cathy [facility] MAGNESIUM 2022-03-03 04:28:00 Cathy [facility] CBC W/PLT COUNT & AUTO 2022-03-03 04:28:[address] [facility] XR CHEST 1 VIEW PORTABLE / 2022-03-03 04:12:00 Henry Morgan [facility] POCT-GLUCOSE METER 2022-03-02 22:03:00 [facility] & 2022-03-02 17:37:[address] [facility]SE [facility] 2022-03-02 16:14:00 [facility] POCT-GLUCOSE METER 2022-03-02 11:26:00 [facility] POCT-GLUCOSE METER 2022-03-02 08:04:00 [facility] ECHO W CONTRAST & DOPPLER 2022-03-02 07:20:49 Gerri Salgado [facility] CBC W/PLT COUNT & AUTO 2022-03-02 03:31:[address] [facility] BASIC METABOLIC PANEL 2022-03-02 03:31[facility]02 [facility]:31[facility] & AUTO 2022-03-02 03:31:00 Henry Morgan [facility] DIFFERENTIAL [facility] XR CHEST 1 VIEW PORTABLE / 2022-03-02 00:52:[address] [facility] BEDSIDE [facility] POCT-GLUCOSE METER 2022-03-01 21:51:00 Jackson Gonzalez [facility] POCT-GLUCOSE METER 2022-03-01 18:11:00 SenJackson martin [facility] ECG 12-LEAD 2022-03-01 17:02:13 Chelsea Mckee [facility] ECG 12-LEAD 2022-03-01 17:02:13 Unknown, Hl7 [facility] ECG 12-LEAD 2022-03-01 17:02:13 Unknown, Hl7 [facility] POCT-ACT 2022-03-01 14:07:00 Ronaldo Owens [facility] VALVULOPLASTY, AORTIC 2022-03-01 12:17:00 Castro José [facility] VALVE, USING BALLOON Medical Shane ter CBC W/PLT COUNT & AUTO 2022-03-01 04:40:00 Christiano Nava [facility] COMPREHENSIVE METABOLIC 2022-03-01 04:40:00 Nava Alvarado [facility] MAGNESIUM 2022-03-01 04:40:00 Nava Alvarado [facility] PHOSPHORUS 2022-03-01 04:40:00 MoNava randolph [facility] CBC W/PLT COUNT & AUTO 2022-03-01 04:40:00 Christiano Nava [facility] POCT-GLUCOSE METER 2022-02-28 20:51:00 Ronaldo Owens [facility] VITAMIN B12 AND FOLATE 2022-02-28 04:01:00 Nava Alvarado [facility] CBC W/PLT COUNT & AUTO 2022-02-28 04:01:[address] [facility] COMPREHENSIVE METABOLIC 2022-02-28 04:01:00 Nava Alvarado [facility] MAGNESIUM 2022-02-28 04:01:00 Nava Alvarado [facility] PHOSPHORUS 2022-02-28 04:01:00 Nava Alvarado [facility] CBC W/PLT COUNT & AUTO 2022-02-28 04:01:00 Nava Alvarado [facility] XR CHEST 1 VIEW PORTABLE / 2022-02-27 13:43:00 Jackie Villalta [facility] BEDSIDE [facility] CYTOLOGY 2022-02-27 13:32:00 [facility] BODY FLUID CELL COUNT WITH 2022-02-27 13:31:00 [facility] + GRAM 2022-02-27 13:31:00 Ronaldo Owens [facility] STAIN [facility] US THORACENTESIS 2022-02-27 13:19:00 Nava Alvarado [facility] POCT-GLUCOSE METER 2022-02-27 08:02:00 Ronaldo Owens [facility] CBC W/PLT COUNT & AUTO 2022-02-27 05:06:00 Nava Alvarado [facility] COMPREHENSIVE METABOLIC 2022-02-27 05:06:00 Nava Alvarado [facility] MAGNESIUM 2022-02-27 05:06:00 Nava Alvarado [facility] PHOSPHORUS 2022-02-27 05:06:00 Christiano Nava [facility] CBC W/PLT COUNT & AUTO 2022-02-27 05:06:00 Christiano Nava [facility] VENOUS DOPPLER LEGS 2022-02-27 01:19:00 Nava Alvarado I [facility] 2D ECHO W/ DOPPLER 2022-02-26 13:46:00 Gayatri Macias [facility] (CW/PW/COLOR) [facility] CANCER ANTIGEN 125 (CA 2022-02-26 13:12:00 Nava Alvarado [facility] 125) [facility] HEMOGLOBIN A1C 2022-02-26 13:12:00 Nava Alvarado [facility] PT/APTT 2022-02-26 13:12:00 Nava Alvarado [facility] PROTHROMBIN TIME/INR 2022-02-26 13:12:00 Nava Alvarado [facility] ABORH, MANUAL 2022-02-26 13:12:00 Makayla Higuera [facility] POCT-GLUCOSE METER 2022-02-26 11:22:00 Ronaldo Owens [facility] XR CHEST 2 VIEWS 2022-02-26 10:49:00 Nava Alvarado [facility] COMPREHENSIVE METABOLIC 2022-02-26 06:25:00 Nava Alvarado [facility] CBC W/PLT COUNT & AUTO 2022-02-26 06:25:[address] [facility] HC LAB HIV-1 AG W/HIV-1&2 2022-02-26 06:25:00 Nava Alvarado Ma [facility] AB [facility] MAGNESIUM 2022-02-26 06:25:00 Nava Alvarado [facility] PHOSPHORUS 2022-02-26 06:25:00 Nava Alvarado [facility] TSH/FREE T4 IF INDICATED 2022-02-26 06:25:00 Nava Alvarado [facility] T4, FREE 2022-02-26 06:25:00 Nava Alvarado [facility] LIPID PANEL 2022-02-26 06:25:00 Hi Crane [facility] TYPE AND SCREEN, AUTOMATED 2022-02-26 06:25:00 Nava Alvarado [facility] CBC W/PLT COUNT & AUTO 2022-02-26 06:25:[address] [facility] POCT-GLUCOSE METER 2022-02-26 06:23:00 Ronaldo Owens [facility] VASCULAR DIAGRAM -SCAN 2022-02-26 00:00:00 Provider, Default [facility] CARDIAC CATH REPORT - SCAN 2022-02-26 00:00:00 Provider, Default [facility] SARS-COV2/RT-PCR ([facility] & 2022-02-22 08:57:00 Ronaldo Owens [facility] REF LABS) [facility] HEMOGLOBIN 2022-02-22 08:57:00 Manuel Schreiber [facility] ECG 12-LEAD 2022-02-22 08:53:54 Abdoul [facility] ECG 12-LEAD 2022-02-22 08:53:54 Unknown, Hl7 [facility] ECG 12-LEAD 2022-02-22 08:53:54 Unknown, Hl7 [facility] POCT-GLUCOSE METER 2021-12-01 07:22:00 Ronaldo Owens [facility] CBC W/PLT COUNT & AUTO 2021-12-01 04:17:00 Petty, Jacky [facility] COMPREHENSIVE METABOLIC 2021-12-01 04:17:00 Jacky Dove [facility] MAGNESIUM 2021-12-01 04:17:00 Petty, Jacky S [facility] PHOSPHORUS 2021-12-01 04:17:00 Petty Jacky S [facility] CBC W/PLT COUNT & AUTO 2021-12-01 04:17:[address] [facility] (CELLAVISION MANUAL DIFF) 2021-12-01 04:17:00 Petty [facility] POCT-GLUCOSE METER 2021-11-30 21:10:00 [facility] 2021-11-30 17:22:00 Graciela [facility] POCT-GLUCOSE METER 2021-11-30 12:16:00 Graciela [facility] IR PORT-A-CATH PLACEMENT 2021-11-30 11:54:00 Petty [facility] XR CHEST 1 VIEW PORTABLE / 2021-11-30 09:19:00 Jackie Villalta [facility] BEDSIDE [facility] BODY FLUID CULTURE + GRAM 2021-11-30 09:08:00 Petty [facility] US THORACENTESIS 2021-11-30 09:08:00 Petty [facility] CYTOLOGY 2021-11-30 09:07:00 Petty [facility] CBC W/PLT COUNT & AUTO 2021-11-30 03:46:[address] [facility] COMPREHENSIVE METABOLIC 2021-11-30 03:46:00 Jacky Dove [facility] MAGNESIUM 2021-11-30 03:46:00 Petty [facility] PHOSPHORUS 2021-11-30 03:46:00 Petty [facility] PROTHROMBIN TIME/INR 2021-11-30 03:46:00 [facility] 2021-11-30 03:46[facility] W/[facility]T COUNT & AUTO 2021-11-30 03:46:00 Petty, [facility] CBC W/PLT COUNT & AUTO 2021-11-29 16:55:00 Graciela [facility] CBC W/PLT COUNT & AUTO 2021-11-29 [facility]:55[facility]OV[facility] ([facility] & 2021-11-29 16:51:00 Petty, [facility] REF LABS) [facility] COMPREHENSIVE METABOLIC 2021-11-29 16:51:00 Petty, Jacky Diane Scales [facility] MAGNESIUM 2021-11-29 16:51:00 Petty [facility] PHOSPHORUS 2021-11-29 16:51:00 Petty [facility] PROTHROMBIN TIME/INR 2021-11-29 16:51:00 Petty [facility] APTT 2021-11-29 16:51:00 Petty [facility] FIBRINOGEN 2021-11-29 16:51:00 Petty [facility] D-DIMER 2021-11-29 16:51:00 Petty [facility] Plan of Care Planned Activity Planned Date Details Comments Source Future Scheduled 2030-09-28 DTAP/TDAP/TD VACCINES [facility] 00:[facility]:00 (2 - Td or Tdap) [code Medic al Center = DTAP/TDAP/TD VACCINES (2 - Td or Tdap)] Future Scheduled 2030-09-28 DTAP/TDAP/TD VACCINES [facility] 00:00:00 (2 - Td or Tdap) [code Medic al Center = DTAP/TDAP/TD VACCINES (2 - Td or Tdap)] Future Scheduled 2030-09-28 DTAP/TDAP/TD VACCINES [facility] 00:00:00 (2 - Td or Tdap) [code Medic al Center = DTAP/TDAP/TD VACCINES (2 - Td or Tdap)] Future Scheduled 2030-09-28 DTAP/TDAP/TD VACCINES [facility] 00:00:00 (2 - Td or Tdap) [code Medic al Center = DTAP/TDAP/TD VACCINES (2 - Td or Tdap)] Future Scheduled 2030-09-28 DTAP/TDAP/TD VACCINES [facility] 00:00:00 (2 - Td or Tdap) [code Medic al Center = DTAP/TDAP/TD VACCINES (2 - Td or Tdap)] Future Scheduled 2030-09-28 DTAP/TDAP/TD VACCINES [facility] 00:00:00 (2 - Td or Tdap) [code Medic al Center = DTAP/TDAP/TD VACCINES (2 - Td or Tdap)] Future Scheduled 2030-09-28 DTAP/TDAP/TD VACCINES [facility] 00:00:00 (2 - Td or Tdap) [code Medic al Center = DTAP/TDAP/TD VACCINES (2 - Td or Tdap)] Future Scheduled 2030-09-28 DTAP/TDAP/TD VACCINES [facility] 00:00:00 (2 - Td or Tdap) [code Medic al Center = DTAP/TDAP/TD VACCINES (2 - Td or Tdap)] Future Scheduled 2030-09-28 DTAP/TDAP/TD VACCINES [facility] 00:00:00 (2 - Td or Tdap) [code Medic al Center = DTAP/TDAP/TD VACCINES (2 - Td or Tdap)] Future Scheduled 2030-09-28 DTAP/TDAP/TD VACCINES [facility] 00:00:00 (2 - Td or Tdap) [code Medic al Center = DTAP/TDAP/TD VACCINES (2 - Td or Tdap)] Future Scheduled 2030-09-28 DTAP/TDAP/TD VACCINES [facility] 00:00:00 (2 - Td or Tdap) [code Medic al Center = DTAP/TDAP/TD VACCINES (2 - Td or Tdap)] Future Scheduled 2023-06-[address] [facility] 00:00:00 [facility] Cent[facility] r Screening (12+) [code = Tobacco Cessation Counseling and Screening (12+)] Future Scheduled 2023-06-[address] [facility] 00:00:00 [facility]ing [facility] Medical Cent[facility] r Screening (12+) [code = Tobacco Cessation Counseling and Screening (12+)] Future Scheduled 2023-06-[address] [facility] 00:00:00 Counseling and Medical Cente r Screening (12+) [code = Tobacco Cessation Counseling and Screening (12+)] Future Scheduled 2023-06-[address] [facility] 00:00:00 Counseling and Medical Cente r Screening (12+) [code = Tobacco Cessation Counseling and Screening (12+)] Future Scheduled 2023-06-[address] [facility] 00:00:00 Counseling and Medical Cente r Screening (12+) [code = Tobacco Cessation Counseling and Screening (12+)] Future Scheduled 2023-06-[address] [facility] 00:00:00 Counseling and Medical Cente r Screening (12+) [code = Tobacco Cessation Counseling and Screening (12+)] Future Scheduled 2023-06-[address] [facility] 00:00:00 Counseling and Medical Cente r Screening (12+) [code = Tobacco Cessation Counseling and Screening (12+)] Future Scheduled 2023-06-[address] [facility] 00:00:00 Counseling and Medical Cente r Screening (12+) [code = Tobacco Cessation Counseling and Screening (12+)] Future Scheduled 2023-06-[address] [facility] 00:00:00 Counseling and Medical Cente r Screening (12+) [code = Tobacco Cessation Counseling and Screening (12+)] Future Scheduled 2022-11-[address] [facility]:00 WELLNESS (YEAR 2 or Medical Center FIRST YEAR if no IPPE) [code = MEDICARE ANNUAL WELLNESS (YEAR 2 or FIRST YEAR if no IPPE)] Future Scheduled 2022-11-[address] [facility] 00:00:00 WELLNESS (YEAR 2 or Medical Center FIRST YEAR if no IPPE) [code = MEDICARE ANNUAL WELLNESS (YEAR 2 or FIRST YEAR if no IPPE)] Future Scheduled 2022-11-[address] [facility] 00:00:00 WELLNESS (YEAR 2 or Medical Center FIRST YEAR if no IPPE) [code = MEDICARE ANNUAL WELLNESS (YEAR 2 or FIRST YEAR if no IPPE)] Future Scheduled 2022-11-[address] [facility] 00:00:00 WELLNESS (YEAR 2 or Medical Center FIRST YEAR if no IPPE) [code = MEDICARE ANNUAL WELLNESS (YEAR 2 or FIRST YEAR if no IPPE)] Future Scheduled 2022-11-[address] [facility] 00:00:00 WELLNESS (YEAR 2 or Medical Center FIRST YEAR if no IPPE) [code = MEDICARE ANNUAL WELLNESS (YEAR 2 or FIRST YEAR if no IPPE)] Future Scheduled 2022-11-[address] [facility] 00:00:00 WELLNESS (YEAR 2 or Medical Center FIRST YEAR if no IPPE) [code = MEDICARE ANNUAL WELLNESS (YEAR 2 or FIRST YEAR if no IPPE)] Future Scheduled 2022-11-25 FALLS RISK SCREENING [facility] 00:00:00 [code = FALLS RISK Medical C enter SCREENING] Future Scheduled 2022-11-25 FALLS RISK SCREENING [facility] 00:00:00 [code = FALLS RISK Medical C enter SCREENING] Future Scheduled 2022-11-25 FALLS RISK SCREENING [facility] 00:00:00 [code = FALLS RISK Medical C enter SCREENING] Future Scheduled 2022-11-25 FALLS RISK SCREENING [facility] 00:00:00 [code = FALLS RISK Medical C enter SCREENING] Future Scheduled 2022-11-25 FALLS RISK SCREENING [facility] 00:00:00 [code = FALLS RISK Medical C enter SCREENING] Future Scheduled 2022-11-25 FALLS RISK SCREENING [facility] 00:00:00 [code = FALLS RISK Medical C enter SCREENING] Future Scheduled 2022-07-26 INFLUENZA VACCINE (#1) [facility] 00:00:00 [code = INFLUENZA Medical Ce nter VACCINE (#1)] Future Scheduled 2022-07-26 INFLUENZA VACCINE (#1) [facility] 00:00:00 [code = INFLUENZA Medical Ce nter VACCINE (#1)] Future Scheduled 2022-07-26 INFLUENZA VACCINE (#1) [facility] 00:00:00 [code = INFLUENZA Medical Ce nter VACCINE (#1)] Future Scheduled 2022-07-26 INFLUENZA VACCINE (#1) [facility] 00:00:00 [code = INFLUENZA Medical Ce nter VACCINE (#1)] Future Scheduled 2022-07-26 INFLUENZA VACCINE (#1) [facility] 00:00:00 [code = INFLUENZA Medical Ce nter VACCINE (#1)] Future Scheduled 2022-07-26 INFLUENZA VACCINE (#1) [facility] 00:00:00 [code = INFLUENZA Medical Ce nter VACCINE (#1)] Future Scheduled 2022-07-26 INFLUENZA VACCINE (#1) [facility] 00:00:00 [code = INFLUENZA Medical Ce nter VACCINE (#1)] Future Scheduled 2022-07-26 INFLUENZA VACCINE (#1) [facility] 00:00:00 [code = INFLUENZA Medical Ce nter VACCINE (#1)] Future Scheduled 2022-07-26 INFLUENZA VACCINE (#1) [facility] 00:00:00 [code = INFLUENZA Medical Ce nter VACCINE (#1)] Future Scheduled 2022-07-26 INFLUENZA VACCINE (#1) [facility] 00:00:00 [code = INFLUENZA Medical Ce nter VACCINE (#1)] Future Scheduled 2022-07-26 INFLUENZA VACCINE (#1) [facility] 00:00:00 [code = INFLUENZA Medical Ce nter VACCINE (#1)] Future Scheduled 2022-03-[address] [facility]procedure[facility] [code = [id number]] Future Scheduled 2022-03-[address] [facility] 00:00:00 measurement (procedure) [facility] [code = [id number]] Future Scheduled 2022-03-[address] [facility] 00:00:00 measurement (procedure) [facility] [code = [id number]] Future Scheduled 2022-03-[address] [facility] 00:00:00 measurement (procedure) [facility] [code = [id number]] Future Scheduled 2022-03-[address] [facility] 00:00:00 measurement (procedure) [facility] [code = [id number]] Future Scheduled 2022-03-[address] [facility] 00:00:00 measurement (procedure) [facility] [code = [id number]] Future Scheduled 2022-03-[address] [facility] 00:00:00 measurement (procedure) [facility] [code = [id number]] Future Scheduled 2022-03-[address] [facility] 00:00:00 measurement (procedure) [facility] [code = [id number]] Future Scheduled 2022-03-[address] [facility] 00:00:00 measurement (procedure) [facility] [code = [id number]] Future Scheduled 2022-03-[address] [facility] 00:00:00 measurement (procedure) [facility] [code = [id number]] Future Scheduled 2022-03-[address] [facility] 00:00:00 measurement (procedure) [facility] [code = [id number]] Future Scheduled 2021-11-25 FALLS RISK SCREENING [facility] 00:00:00 [code = FALLS RISK Medical C enter SCREENING] Future Scheduled 2021-11-25 Medicare IPPE (WELCOME [facility] 00:00:00 TO MEDICARE) [code = Medical Center Medicare IPPE (WELCOME TO MEDICARE)] Future Scheduled 2021-11-25 FALLS RISK SCREENING [facility] 00:00:00 [code = FALLS RISK Medical C enter SCREENING] Future Scheduled 2021-11-25 Medicare IPPE (WELCOME [facility] 00:00:00 TO MEDICARE) [code = Medical Center Medicare IPPE (WELCOME TO MEDICARE)] Future Scheduled 2021-11-25 FALLS RISK SCREENING [facility] 00:00:00 [code = FALLS RISK Medical C enter SCREENING] Future Scheduled 2021-11-25 Medicare IPPE (WELCOME [facility] 00:00:00 TO MEDICARE) [code = Medical Center Medicare IPPE (WELCOME TO MEDICARE)] Future Scheduled 2021-11-25 FALLS RISK SCREENING [facility] 00:00:00 [code = FALLS RISK Medical C enter SCREENING] Future Scheduled 2021-11-25 Medicare IPPE (WELCOME [facility] 00:00:00 TO MEDICARE) [code = Medical Center Medicare IPPE (WELCOME TO MEDICARE)] Future Scheduled 2021-11-25 FALLS RISK SCREENING [facility] 00:00:00 [code = FALLS RISK Medical C enter SCREENING] Future Scheduled 2021-11-25 Medicare IPPE (WELCOME [facility] 00:00:00 TO MEDICARE) [code = Medical Center Medicare IPPE (WELCOME TO MEDICARE)] Future Scheduled 1998 SHINGLES VACCINES ([address] [facility] 00:00:00 2) [code = SHINGLES Medical Center VACCINES (1 of 2)] Future Scheduled 1998 SHINGLES VACCINES ([address] [facility] 00:00:00 2) [code = SHINGLES Medical Center VACCINES (1 of 2)] Future Scheduled 1998 SHINGLES VACCINES ([address] [facility] 00:00:00 2) [code = SHINGLES Medical Center VACCINES (1 of 2)] Future Scheduled 1998 SHINGLES VACCINES ([address] [facility] 00:00:00 2) [code = SHINGLES Medical Center VACCINES (1 of 2)] Future Scheduled 1998 SHINGLES VACCINES ([address] [facility] 00:00:00 2) [code = SHINGLES Medical Center VACCINES (1 of 2)] Future Scheduled 1998 SHINGLES VACCINES ([address] [facility] 00:00:00 2) [code = SHINGLES Medical Center VACCINES (1 of 2)] Future Scheduled 1998 SHINGLES VACCINES ([address] [facility] 00:00:00 2) [code = SHINGLES Medical Center VACCINES (1 of 2)] Future Scheduled 1998 SHINGLES VACCINES ([address] [facility] 00:00:00 2) [code = SHINGLES Medical Center VACCINES (1 of 2)] Future Scheduled 1998 SHINGLES VACCINES ([address] [facility] 00:00:00 2) [code = SHINGLES Medical Center VACCINES (1 of 2)] Future Scheduled 1998 SHINGLES VACCINES ([address] [facility] 00:00:00 2) [code = SHINGLES Medical Center VACCINES (1 of 2)] Future Scheduled 1998 SHINGLES VACCINES ([address] [facility] 00:00:00 2) [code = SHINGLES Medical Center VACCINES (1 of 2)] Future Scheduled 1966 HEPATITIS C SCREENING [facility] 00:00:00 [code = HEPATITIS C Medical Center SCREENING] Future Scheduled 1966 HEPATITIS C [facility]CRE[facility]ING [facility] 00:00:00 [code = HEPATITIS C Medical Center SCREENING] Future Scheduled 1966 HEPATITIS C [facility]CRE[facility]ING [facility] 00:00:00 [code = HEPATITIS C Medical Center SCREENING] Future Scheduled 1966 HEPATITIS C SCRE[facility]ING [facility] 00:00:00 [code = HEPATITIS C Medical Center SCREENING] Future Scheduled 1966 HEPATITIS C SCREENING [facility] 00:00:00 [code = HEPATITIS C Medical Center SCREENING] Future Scheduled 1966 HEPATITIS C [facility]CRE[facility]ING [facility] 00:00:00 [code = HEPATITIS C Medical Center SCREENING] Future Scheduled 1966 HEPATITIS C [facility]CRE[facility]ING [facility] 00:00:00 [code = HEPATITIS C Medical Center SCREENING] Future Scheduled 1966 HEPATITIS C [facility]CRE[facility]ING [facility] 00:00:00 [code = HEPATITIS C Medical Center SCREENING] Future Scheduled 1966 HEPATITIS C [facility]CRE[facility]ING [facility] 00:00:00 [code = HEPATITIS C Medical Center SCREENING] Future Scheduled 1966 HEPATITIS C [facility]CRE[facility]ING [facility] 00:00:00 [code = HEPATITIS C Medical Center SCREENING] Future Scheduled 1966 HEPATITIS C [facility]CRE[facility]ING [facility] 00:00:00 [code = HEPATITIS C Medical Center SCREENING] Future Scheduled 1958 DIABETIC EYE EXAM [code [facility] 00:00:00 = DIABETIC EYE EXAM] Medical Center Future Scheduled [address] [facility] examination [facility] Center (regime/therapy) [code = [id number]] Future Scheduled 1958 Urine screening for [facility] 00:00:00 protein (procedure) Medical Center [code = [id number]] Future Scheduled 1958 DIABETIC EYE EXAM [code [facility] 00:00:00 = DIABETIC EYE EXAM] Medical Center Future Scheduled [address] [facility]00 examination Medical Center (regime/therapy) [code = [id number]] Future Scheduled 1958 Urine screening for [facility] 00:00:00 protein (procedure) Medical Center [code = [id number]] Future Scheduled 1958 DIABETIC EYE EXAM [code [facility] 00:00:00 = DIABETIC EYE EXAM] Medical Center Future Scheduled [address] [facility]:00 examination Medical Center (regime/therapy) [code = 086865422] Future Scheduled 1958 Urine screening for [facility] 00:00:00 protein (procedure) Medical Center [code = [id number]] Future Scheduled 1958 DIABETIC EYE EXAM [code [facility] 00:00:00 = DIABETIC EYE EXAM] Medical Center Future Scheduled [address] [facility] 00:[facility]:00 examination Medical Center (regime/therapy) [code = 693044121] Future Scheduled 1958 Urine screening for [facility] 00:00:00 protein (procedure) Medical Center [code = [id number]] Future Scheduled 1958 DIABETIC EYE EXAM [code [facility] 00:00:00 = DIABETIC EYE EXAM] Medical Center Future Scheduled [address] [facility] 00:[facility]:00 examination Medical Center (regime/therapy) [code = 904320844] Future Scheduled 1958 Urine screening for [facility] 00:00:00 protein (procedure) Medical Center [code = 418553190] Future Scheduled 1958 DIABETIC EYE EXAM [code [facility] 00:00:00 = DIABETIC EYE EXAM] Medical Center Future Scheduled [address] [facility] 00:[facility]:00 examination Medical Center (regime/therapy) [code = 929022137] Future Scheduled 1958 Urine screening for [facility] 00:00:00 protein (procedure) Medical Center [code = [id number]] Future Scheduled 1958 DIABETIC EYE EXAM [code [facility] 00:00:00 = DIABETIC EYE EXAM] Medical Center Future Scheduled [address] [facility] 00:00:00 examination Medical Center (regime/therapy) [code = 503648920] Future Scheduled 1958 Urine screening for [facility] 00:00:00 protein (procedure) Medical Center [code = [id number]] Future Scheduled 1958 DIABETIC EYE EXAM [code [facility] 00:00:00 = DIABETIC EYE EXAM] Medical Center Future Scheduled [address] [facility] 00:[facility]:00 examination Medical Center (regime/therapy) [code = 463429921] Future Scheduled 1958 Urine screening for [facility] 00:00:00 protein (procedure) Medical Center [code = 391913966] Future Scheduled 1958 DIABETIC EYE EXAM [code [facility] 00:00:00 = DIABETIC EYE EXAM] Medical Center Future Scheduled [address] [facility] 00:00:00 examination Medical Center (regime/therapy) [code = 202247932] Future Scheduled 1958 Urine screening for [facility] 00:00:00 protein (procedure) Medical Center [code = 760527584] Future Scheduled 1958 DIABETIC EYE EXAM [code [facility] 00:00:00 = DIABETIC EYE EXAM] Medical Center Future Scheduled [address] [facility] 00:00:00 examination Medical Center (regime/therapy) [code = 732407291] Future Scheduled 1958 Urine screening for [facility] 00:00:00 protein (procedure) Medical Center [code = [id number]] Future Scheduled 1958 DIABETIC EYE EXAM [code [facility] 00:00:00 = DIABETIC EYE EXAM] [facility] Future Scheduled [address] [facility] (regime/therapy) [code = 935449813] Future Scheduled 1958 Urine screening for [facility] 00:00:00 protein (procedure) [facility] Center [code = 893836725] Future Scheduled 1954 PNEUMOCOCCAL 65+ YRS ([address] [facility] 00:00:00 - PCV) [code = Medical Cente r PNEUMOCOCCAL 65+ YRS (1 - PCV)] Future Scheduled 1954 PNEUMOCOCCAL 65+ YRS ([address] [facility] 00:00:00 - PCV) [code = Medical Cent[facility] PNEUMOCOCCAL 65+ YRS (1 - PCV)] Future Scheduled 1954 PNEUMOCOCCAL 65+ YRS ([address] [facility] 00:00:00 - PCV) [code = Medical Cent[facility] PNEUMOCOCCAL 65+ YRS (1 - PCV)] Future Scheduled 1954 PNEUMOCOCCAL 65+ YRS ([address] [facility] 00:00:00 - PCV) [code = Medical Cente r PNEUMOCOCCAL 65+ YRS (1 - PCV)] Future Scheduled 1954 PNEUMOCOCCAL 65+ YRS ([address] [facility] 00:00:00 - PCV) [code = Medical Cente [facility] PNEUMOCOCCAL 65+ YRS (1 - PCV)] Future Scheduled 1954 PNEUMOCOCCAL 65+ YRS ([address] [facility] 00:00:00 - PCV) [code = Medical Cente r PNEUMOCOCCAL 65+ YRS (1 - PCV)] Future Scheduled 1954 PNEUMOCOCCAL 65+ YRS ([address] [facility] 00:00:00 - PCV) [code = Medical Cente r PNEUMOCOCCAL 65+ YRS (1 - PCV)] Future Scheduled 1954 PNEUMOCOCCAL 65+ YRS ([address] [facility] 00:00:00 - PCV) [code = Medical Cente [facility] PNEUMOCOCCAL 65+ YRS (1 - PCV)] Future Scheduled 1954 PNEUMOCOCCAL 65+ YRS ([address] [facility] 00:00:00 - PCV) [code = Medical Cente r PNEUMOCOCCAL 65+ YRS (1 - PCV)] Future Scheduled 1954 PNEUMOCOCCAL 65+ YRS ([address] [facility] 00:00:00 - PCV) [code = Medical Cente r PNEUMOCOCCAL 65+ YRS (1 - PCV)] Future Scheduled 1954 PNEUMOCOCCAL 65+ YRS ([address] [facility] 00:00:00 - PCV) [code = Medical Cente r PNEUMOCOCCAL 65+ YRS (1 - PCV)] Future Scheduled 1949-03-27 COVID-19 VACCINE (#1) [facility] 00:[facility]:00 [code = COVID-[address] VACCINE (#1)] Future Scheduled 1949-03-27 COVID-19 VACCINE (#1) [facility] 00:00:00 [code = COVID-[address] VACCINE (#1)] Future Scheduled 1949-03-27 COVID-19 VACCINE (#1) [facility] 00:00:00 [code = COVID-[address] VACCINE (#1)] Future Scheduled 1949-03-27 COVID-19 VACCINE (#1) [facility] 00:00:00 [code = COVID-[address] VACCINE (#1)] Future Scheduled 1949-03-27 COVID-19 VACCINE (#1) [facility] 00:00:00 [code = COVID-[address] VACCINE (#1)] Future Scheduled 1949-03-27 COVID-19 VACCINE (#1) [facility] 00:00:00 [code = COVID-[address] VACCINE (#1)] Future Scheduled 1949-03-27 COVID-19 VACCINE (#1) [facility] 00:00:00 [code = COVID-[address] VACCINE (#1)] Future Scheduled 1949-03-27 COVID-19 VACCINE (#1) [facility] 00:00:00 [code = COVID-[address] VACCINE (#1)] Future Scheduled 1949-03-27 COVID-19 VACCINE (#1) [facility] 00:00:00 [code = COVID-[address] VACCINE (#1)] Future Scheduled 1949-03-27 COVID-19 VACCINE (#1) [facility] 00:00:00 [code = COVID-[address] VACCINE (#1)] Future Scheduled 1949-03-27 COVID-19 VACCINE (#1) [facility] 00:00:00 [code = COVID-[address] VACCINE (#1)] Future Scheduled 1948 Screening for malignant [facility] 00:00:00 neoplasm of breast Medical C enter (procedure) [code = 964353847] Future Scheduled 1948 CT Colonography (combo) [facility] 00:00:00 [code = CT Colonography [facility] (combo)] Future Scheduled 1948 Screening for malignant [facility] 00:00:00 neoplasm of colon Medical Ce nter (procedure) [code = 366215903] Future Scheduled 1948 Screening for malignant [facility] 00:00:00 neoplasm of colon Medical Ce nter (procedure) [code = 273834254] Future Scheduled 1948 DXA SCAN [code = DXA [facility] 00:00:00 SCAN] Medical Center Future Scheduled 1948 Screening for malignant [facility] 00:00:00 neoplasm of colon Medical Ce nter (procedure) [code = 728690221] Future Scheduled 1948 Screening for malignant [facility] 00:00:00 neoplasm of colon Medical Ce nter (procedure) [code = 000201534] Future Scheduled 1948 Sigmoidoscopy [code = [facility]] [facility] Future Scheduled 1948 Screening for malignant [facility] 00:00:00 neoplasm of breast Medical C enter (procedure) [code = 506993050] Future Scheduled 1948 CT Colonography (combo) [facility] 00:00:00 [code = CT Colonography [facility] (combo)] Future Scheduled 1948 Screening for malignant [facility] 00:00:00 neoplasm of colon Medical Ce nter (procedure) [code = 205266576] Future Scheduled 1948 Screening for malignant [facility] 00:00:00 neoplasm of colon Medical Ce nter (procedure) [code = 402764486] Future Scheduled 1948 DXA SCAN [code = DXA [facility] 00:00:00 SCAN] [facility] Future Scheduled 1948 Screening for malignant [facility] 00:00:00 neoplasm of colon Medical Ce nter (procedure) [code = 378686627] Future Scheduled 1948 Screening for malignant [facility] 00:00:00 neoplasm of colon Medical Ce nter (procedure) [code = 856356945] Future Scheduled 1948 Sigmoidoscopy [code = [facility]] [facility] Future Scheduled 1948 Screening for malignant [facility] 00:00:00 neoplasm of breast Medical C enter (procedure) [code = 797133140] Future Scheduled 1948 CT Colonography (combo) [facility] 00:00:00 [code = CT Colonography [facility] (combo)] Future Scheduled 1948 Screening for malignant [facility] 00:00:00 neoplasm of colon Medical Ce nter (procedure) [code = 148614096] Future Scheduled 1948 Screening for malignant [facility] 00:00:00 neoplasm of colon Medical Ce nter (procedure) [code = 029470149] Future Scheduled 1948 DXA SCAN [code = DXA [facility] 00:00:00 SCAN] [facility] Future Scheduled 1948 Screening for malignant [facility] 00:00:00 neoplasm of colon Medical Ce nter (procedure) [code = 220511535] Future Scheduled 1948 Screening for malignant [facility] 00:00:00 neoplasm of colon Medical Ce nter (procedure) [code = 475760554] Future Scheduled 1948 Sigmoidoscopy [code = [facility] 00:[facility]] [facility] Future Scheduled 1948 Screening for malignant [facility] 00:00:00 neoplasm of breast Medical C enter (procedure) [code = 439552981] Future Scheduled 1948 CT Colonography (combo) [facility] 00:00:00 [code = CT Colonography [facility] (combo)] Future Scheduled 1948 Screening for malignant [facility] 00:00:00 neoplasm of colon Medical Ce nter (procedure) [code = 717395423] Future Scheduled 1948 Screening for malignant [facility] 00:00:00 neoplasm of colon Medical Ce nter (procedure) [code = 785962500] Future Scheduled 1948 DXA SCAN [code = DXA [facility] 00:00:00 SCAN] [facility] Future Scheduled 1948 Screening for malignant [facility] 00:00:00 neoplasm of colon Medical Ce nter (procedure) [code = 365802742] Future Scheduled 1948 Screening for malignant [facility] 00:00:00 neoplasm of colon Medical Ce nter (procedure) [code = 681463739] Future Scheduled 1948 Sigmoidoscopy [code [facility]] [facility] Future Scheduled 1948 Screening for malignant [facility] 00:00:00 neoplasm of breast Medical C enter (procedure) [code = 800929757] Future Scheduled 1948 CT Colonography (combo) [facility] 00:00:00 [code = CT Colonography [facility] (combo)] Future Scheduled 1948 Screening for malignant [facility] 00:00:00 neoplasm of colon Medical Ce nter (procedure) [code = 888518468] Future Scheduled 1948 Screening for malignant [facility] 00:00:00 neoplasm of colon Medical Ce nter (procedure) [code = 872868540] Future Scheduled 1948 DXA SCAN [code = DXA [facility] 00:00:00 SCAN] [facility] Future Scheduled 1948 Screening for malignant [facility] 00:00:00 neoplasm of colon Medical Ce nter (procedure) [code = 222308871] Future Scheduled 1948 Screening for malignant [facility] 00:00:00 neoplasm of colon Medical Ce nter (procedure) [code = 063512811] Future Scheduled 1948 Sigmoidoscopy [code [facility] 00:[facility]oscopy] [facility] Future Scheduled 1948 Screening for malignant [facility] 00:00:00 neoplasm of breast Medical C enter (procedure) [code = 393974971] Future Scheduled 1948 CT Colonography (combo) [facility] 00:00:00 [code = CT Colonography [facility] (combo)] Future Scheduled 1948 Screening for malignant [facility] 00:00:00 neoplasm of colon Medical Ce nter (procedure) [code = 245803516] Future Scheduled 1948 Screening for malignant [facility] 00:00:00 neoplasm of colon Medical Ce nter (procedure) [code = 916563538] Future Scheduled 1948 DXA SCAN [code = DXA [facility] 00:00:00 SCAN] [facility] Future Scheduled 1948 Screening for malignant [facility] 00:00:00 neoplasm of colon Medical Ce nter (procedure) [code = 750845522] Future Scheduled 1948 Screening for malignant [facility] 00:00:00 neoplasm of colon Medical Ce nter (procedure) [code = 269239007] Future Scheduled 1948 Sigmoidoscopy [code [facility]] [facility] Future Scheduled 1948 Screening for malignant [facility] 00:00:00 neoplasm of breast Medical C enter (procedure) [code = 796129995] Future Scheduled 1948 CT Colonography (combo) [facility] 00:00:00 [code = CT Colonography [facility] (combo)] Future Scheduled 1948 Screening for malignant [facility] 00:00:00 neoplasm of colon Medical Ce nter (procedure) [code = 668565446] Future Scheduled 1948 Screening for malignant [facility] 00:00:00 neoplasm of colon Medical Ce nter (procedure) [code = 950124458] Future Scheduled 1948 DXA SCAN [code = DXA [facility] 00:00:00 SCAN] [facility] Future Scheduled 1948 Screening for malignant [facility] 00:00:00 neoplasm of colon Medical Ce nter (procedure) [code = 751418077] Future Scheduled 1948 Screening for malignant [facility] 00:00:00 neoplasm of colon Medical Ce nter (procedure) [code = 458895335] Future Scheduled 1948 Sigmoidoscopy [code [facility]] [facility] Future Scheduled 1948 Screening for malignant [facility] 00:00:00 neoplasm of breast Medical C enter (procedure) [code = 219950564] Future Scheduled 1948 CT Colonography (combo) [facility] 00:00:00 [code = CT Colonography [facility] (combo)] Future Scheduled 1948 Screening for malignant [facility] 00:00:00 neoplasm of colon Medical Ce nter (procedure) [code = 551823778] Future Scheduled 1948 Screening for malignant [facility] 00:00:00 neoplasm of colon Medical Ce nter (procedure) [code = 566389294] Future Scheduled 1948 DXA SCAN [code = DXA [facility] 00:00:00 SCAN] [facility] Future Scheduled 1948 Screening for malignant [facility] 00:00:00 neoplasm of colon Medical Ce nter (procedure) [code = 522772876] Future Scheduled 1948 Screening for malignant [facility] 00:00:00 neoplasm of colon Medical Ce nter (procedure) [code = 353359820] Future Scheduled 1948 Sigmoidoscopy [code [facility] 00:[facility] S[facility]oidoscopy] [facility] Future Scheduled 1948 Screening for malignant [facility] 00:00:00 neoplasm of breast Medical C enter (procedure) [code = 985846970] Future Scheduled 1948 CT Colonography (combo) [facility] 00:00:00 [code = CT Colonography [facility] (combo)] Future Scheduled 1948 Screening for malignant [facility] 00:00:00 neoplasm of colon Medical Ce nter (procedure) [code = 344152251] Future Scheduled 1948 Screening for malignant [facility] 00:00:00 neoplasm of colon Medical Ce nter (procedure) [code = 564804843] Future Scheduled 1948 DXA SCAN [code = DXA [facility] 00:00:00 SCAN] [facility] Future Scheduled 1948 Screening for malignant [facility] 00:00:00 neoplasm of colon Medical Ce nter (procedure) [code = 425211923] Future Scheduled 1948 Screening for malignant [facility] 00:00:00 neoplasm of colon Medical Ce nter (procedure) [code = 721681217] Future Scheduled 1948 Sigmoidoscopy [code [facility] 00:[facility] S[facility]oidoscopy] [facility] Future Scheduled 1948 Screening for malignant [facility] 00:00:00 neoplasm of breast Medical C enter (procedure) [code = 269647207] Future Scheduled 1948 CT Colonography (combo) [facility] 00:00:00 [code = CT Colonography [facility] (combo)] Future Scheduled 1948 Screening for malignant [facility] 00:00:00 neoplasm of colon Medical Ce nter (procedure) [code = 246348577] Future Scheduled 1948 Screening for malignant [facility] 00:00:00 neoplasm of colon Medical Ce nter (procedure) [code = 011021081] Future Scheduled 1948 DXA SCAN [code = DXA [facility] 00:00:00 SCAN] [facility] Future Scheduled 1948 Screening for malignant [facility] 00:00:00 neoplasm of colon Medical Ce nter (procedure) [code = 467856648] Future Scheduled 1948 Screening for malignant [facility] 00:00:00 neoplasm of colon Medical Ce nter (procedure) [code = 441483345] Future Scheduled 1948 Sigmoidoscopy [code [facility]] [facility] Future Scheduled 1948 Screening for malignant [facility] 00:00:00 neoplasm of breast Medical C enter (procedure) [code = 742926590] Future Scheduled 1948 CT Colonography (combo) [facility] 00:00:00 [code = CT Colonography [facility] (combo)] Future Scheduled 1948 Screening for malignant [facility] 00:00:00 neoplasm of colon Medical Ce nter (procedure) [code = 767297563] Future Scheduled 1948 Screening for malignant [facility] 00:00:00 neoplasm of colon Medical Ce nter (procedure) [code = 618392618] Future Scheduled 1948 DXA SCAN [code = DXA [facility] 00:00:00 SCAN] [facility] Future Scheduled 1948 Screening for malignant [facility] 00:00:00 neoplasm of colon Medical Ce nter (procedure) [code = 046554187] Future Scheduled 1948 Screening for malignant [facility] 00:00:00 neoplasm of colon Medical Ce nter (procedure) [code = 522546347] Future Scheduled 1948 Sigmoidoscopy [code = [facility] 00:00:[facility] Sigmoidoscopy] Medical Cente r Encounters Start End Encounter Admission Attending Care Care Encounter Source Date/Time Date/Time Type Type Clinicians Facility Department ID 2023-01-29 Outpatient [facility] [id number] [place] 06:58:07 [id number] [facility] 2023-02-13 2023-02-13 [id number] [facility] 00[facility]00[facility]00 Only [facility] 2023-02-13 2023-02-13 [facility] [id number] 00:[facility]00 00:00:00 Only [facility] 2023-02-13 2023-02-13 [facility] [id number] 00:[facility]00 00:00:00 Only [facility] 2023-02-12 2023-02-12 Outpatient [facility] [id number] [facility] 00:00:00 23:59:00 [facility] 2023-02-12 2023-02-12 Outpatient GRACIELA [facility] [id number] [facility] 09:38:47 15:10:33 [facility] 2023-01-22 2023-01-22 Outpatient [facility] [id number] [facility] 08:48:09 23:59:00 [facility] 2023-01-22 2023-01-22 Outpatient GRACIELA [facility] [id number] [facility] 07:51:25 12:16:56 [facility] 2023-01-01 2023-01-01 Outpatient [facility] [id number] [facility] 00:00:00 23:59:00 [facility] 2023-01-01 2023-01-01 Outpatient GRACIELA [facility] [id number] [facility] 07:42:36 11:47:11 [facility] 2022-12-11 2022-12-11 Outpatient [facility] [id number] [facility] 10:05:27 23:59:00 [facility] 2022-12-11 2022-12-11 Outpatient GRACIELA, [facility] [id number] [facility] 09:29:38 11:53:54 [facility] 2022-11-20 2022-11-20 Outpatient [facility] [id number] [facility] 09:17:31 23:59:00 [facility] 2022-11-20 2022-11-20 Outpatient GRACIELA, [facility] [id number] [facility] 08:51:40 15:28:25 [facility] 2022-11-06 2022-11-06 Outpatient AMY, [facility] MED [id number] [facility] 11:10:00 11:10:00 BELINDA 2022-10-30 2022-10-30 Outpatient [facility] [id number] [facility] 09:25:30 23:59:00 [facility] 2022-10-30 2022-10-30 Outpatient GRACIELA, [facility] [id number] [facility] 08:54:26 12:45:37 [facility] 2022-10-11 2022-10-12 Inpatient ARNOLD, [facility] MED [id number] [facility] 05:35:00 15:45:00 LEROY 2022-10-02 2022-10-02 Outpatient GRACIELA, [facility] [id number] [facility] 09:51:35 11:31:59 [facility] 2022-09-04 2022-09-04 Outpatient [facility] [id number] [facility] 08:27:53 23:59:00 [facility] 2022-09-04 2022-09-04 Outpatient GRACIELA, [facility] [id number] [facility] 08:22:36 09:48:07 [facility] 2022-08-07 2022-08-07 Outpatient [facility] [id number] [facility] 07:43:49 23:59:00 [facility] 2022-07-31 2022-07-31 Outpatient [facility] [id number] [facility] 00:00:00 23:59:00 [facility] 2022-07-31 2022-07-31 Outpatient GRACIELA, [facility] [id number] [facility] 07:05:32 11:01:26 [facility] 2022-07-17 2022-07-17 Outpatient MALDONADO [facility] [address] [id number] [facility] 05:39:00 23:59:00 LUCRECIA 2022-07-10 2022-07-10 Outpatient [facility] [id number] [facility] 08:35:24 23:59:00 [facility] 2022-07-10 2022-07-10 Outpatient GRACIELA, [facility] [id number] [facility] 07:25:20 09:32:59 [facility] 2022-07-05 2022-07-05 Outpatient [facility], [facility] [id number] [facility] 00:00:00 00:00:00 CASTALIA 2022-06-29 2022-06-29 Outpatient [facility], [facility] [id number] [facility] 07:15:33 23:59:00 CASTALIA 2022-06-29 2022-06-29 [facility] [id number] 07:00:00 23:59:00 Encounter [facility] 2022-06-29 2022-06-29 [facility] [id number] 07:00:00 23:59:00 Encounter [facility] 2022-06-29 2022-06-29 Outpatient [facility] [id number] [facility] 07:33:39 07:33:39 2022-06-27 2022-06-27 Outside [facility] [id number] 00:00:00 00:00:00 Orders [facility] 2022-06-27 2022-06-27 [facility] [id number] 00:00:00 00:00:00 Orders [facility] 2022-06-262022-06-26 Outpatient GRACIELA, BCM BCM [id number] [facility] 09:20:12 12:11:45 [facility] 2022-06-16 2022-06-16 Outpatient NATALIE Rider [facility] [id number] [facility] 04:40:00 04:40:[address] [facility] 2022-06-16 2022-06-16 Outpatient GIGI [facility] [id number] [facility] 04:40:00 04:40:00 [facility] [id number] [facility] 2022-06-05 2022-06-05 Outpatient BCM BCM [id number] [facility] 07:23:16 23:59:00 [facility] 2022-06-05 2022-06-05 Outpatient EL [facility] [id number] [facility] 12:45:35 12:45:35 2022-06-05 2022-06-05 Orders Graciela, [facility] [id number] 07:30:00 07:45:00 Only [facility] 2022-06-05 2022-06-05 Orders EL Graciela, [facility] [id number] 07:30:00 07:45:00 Only [facility] 2022-05-30 2022-05-30 Outpatient EL [facility] [id number] [facility] 12:56:34 12:56:34 2022-05-29 2022-05-29 Outpatient BCM BC [id number] [facility] 00:00:00 23:59:00 [facility] 2022-05-29 2022-05-29 Outpatient GRACIELA, M BCM [id number] [facility] 07:07:21 09:14:37 [facility] 2022-05-29 2022-05-[address] [facility] [id number] 08:15:00 08:30:00 Only [facility] 2022-05-29 2022-05-29 Orders EL Graciela, [facility] [id number] 08:15:00 08:30:00 Only [facility] 2022-05-08 2022-05-08 Outpatient [facility] [id number] [facility] 07:09:51 23:59:00 [facility] 2022-05-08 2022-05-08 Outpatient EL [facility] SLE [id number] [facility] 12:45:20 12:45:20 2022-05-08 2022-05-[address] [facility] [id number] 07:00:00 07:15:00 Only [facility] 2022-05-08 2022-05-[address] [facility] [id number] [facility] [facility] St 07:00:00 07:15:00 Only [facility] 2022-05-01 2022-05-01 Outpatient [facility] [id number] [facility] 00:00:00 23:59:00 [facility] 2022-05-01 2022-05-01 Outpatient EL [facility] SLE [id number] [facility] 16:45:35 16:45:35 2022-05-01 2022-05-[address] [facility] [id number] [facility] St 10:15:00 10:30:00 Only [facility] 2022-05-01 2022-05-[address] [facility] [id number] [facility] St 10:15:00 10:30:00 Only [facility] 2022-05-01 2022-05-01 Outpatient GRACIELA, [facility] [id number] [facility] 07:47:13 09:53:15 [facility] 2022-04-10 2022-04-10 Outpatient [facility] [id number] [facility] 08:56:32 23:59:00 [facility] 2022-04-09 2022-04-09 Outpatient KASSANDRA [facility] [id number] [facility] 12:51:30 15:17:36 [facility]AC[facility]N [facility] 2022-03-27 2022-03-27 Outpatient GRACIELA [facility] [id number] [facility] 14:12:06 15:22:59 [facility] 2022-03-07 2022-03-19 [facility] [id number] 05:12:00 12:06:00 Encounter [facility] 2022-03-07 2022-03-19 [facility] [id number] 05:12:00 12:06:00 Encounter [facility] 2022-03-07 2022-03-19 Inpatient [facility] Surgery [id number] [facility] 05:12:00 12:06:00 CASTALIA 2022-03-07 2022-03-07 Outpatient [facility] [id number] [facility] 05:12:00 23:59:00 [facility] 2022-03-07 2022-03-07 [facility] [id number] [facility] 07:31:00 17:43:00 Event Lisandro [facility] 2022-03-07 2022-03-07 [facility] [id number] [facility] 07:31[facility]00 17:43:00 Event Lisandro [facility] 2022-03-07 2022-03-07 Surgery [facility] [id number] [facility] 07:30:00 16:05:00 [facility] 2022-03-07 2022-03-07 Surgery [facility] [id number] 07:30:00 16:05:00 [facility] 2022-03-07 2022-03-07 Travel [facility] [id number] [facility] 00:[facility]00 00:00:00 [facility] 2022-03-07 2022-03-07 Travel [facility] [id number] [facility] 00:[facility] 00:00:00 [facility] 2022-03-06 2022-03-06 [facility] [id number] 23:59:00 23:59:00 Encounter [facility] 2022-03-06 2022-03-06 [facility] [id number] 23:59:00 23:59:00 Encounter [facility] 2022-03-06 2022-03-06 Outpatient [facility] [id number] [facility] 00:00:00 23:59:00 2022-03-06 2022-03-06 Orders [facility] [id number] 00:00:00 00:00:00 Only [facility] 2022-03-06 2022-03-06 [facility] [id number] 00:00:00 00:00:00 Only [facility] 2022-03-05 2022-03-05 Outpatient [facility] [id number] [facility] 15:31:16 23:59:00 [place] 2022-03-05 2022-03-05 [facility] [id number] 15:30:00 23:59:00 Encounter [facility] 2022-03-05 2022-03-05 [facility] [id number] 15:30:00 23:59:00 Encounter [facility] 2022-02-26 2022-03-03 [facility] Ronaldo Green [facility] [id number] [facility] 05:38:00 12:48:00 Encounter Jackson Gonzalez Sonal [facility] 2022-02-26 2022-03-[facility] [id number] [facility] 05:38:00 12:48:00 Encounter Jackson Gonzalezla, [facility] 2022-02-26 2022-03-03 Inpatient JAY, [facility] Cardiac [id number] [facility] 05:38:00 12:48:00 ALICIA Cath 2022-03-03 2022-03-03 Orders Dany, [facility] [id number] 00:00:00 00:00:00 Only [facility] 2022-03-03 2022-03-03 Orders Dany, [facility] [id number] 00:00:00 00:00:00 Only [facility] 2022-03-01 2022-03-01 Outpatient [facility] [id number] [facility] 00:00:00 23:59:00 Bret 2022-03-01 2022-03-[address] [facility] [id number] 11:28:00 14:44:00 [facility] 2022-03-01 2022-03-[address] [facility] [id number] 11:28:00 14:44:00 [facility] 2022-03-01 2022-03-[address] [facility] [id number] 12:35:00 14:39:00 Event Nando Coker [facility] 2022-03-01 2022-03-[address] [facility] [id number] 12:35:00 14:39:00 Event Nando Coker [facility] 2022-03-01 2022-03-[address] [facility] [id number] 00:00:00 00:00:00 [facility] 2022-03-01 2022-03-[address] [facility] [id number] 00:00:00 00:00:00 [facility] 2022-02-26 2022-02-26 [facility] [id number] [facility] 05:38:00 23:59:00 Karon [facility] 2022-02-26 2022-02-[address] [facility] [id number] 08:42:09 08:42:09 [facility] 2022-02-26 2022-02-[address] [facility] [id number] 08:42:09 08:42:09 [facility] 2022-02-26 2022-02-26 Anesthesia Deon, [facility] [id number] 08:05:17 08:05:17 Event [facility] 2022-02-26 2022-02-26 [id number] 08:05:17 08:05:17 Event [facility] 2022-02-26 2022-02-26 Travel [facility] [id number] [facility] 00:00:00 00:00:00 [facility] 2022-02-26 2022-02-26 Travel [facility] [id number] [facility] 00:00[facility]00 00:00:00 [facility] 2022-02-23 2022-02-23 Outpatient EL SLE [facility] [id number] [facility] 09:17:33 23:59:00 2022-02-23 2022-02-23 [facility] [id number] 08:15:00 23:59:00 Encounter [facility] 2022-02-23 2022-02-23 [facility] [id number] 08:15:00 23:59:00 Encounter [facility] 2022-02-23 2022-02-[address] [facility] [id number] 00:00:00 00:00:00 Only Ronaldo [facility] 2022-02-23 2022-02-[address] [facility] [id number] 00:00:00 00:00:00 Only [facility] 2022-02-23 2022-02-[address] [facility] [id number] 00:00:00 00:00:00 Only [facility] 2022-02-23 2022-02-[address] [facility] [id number] 00:00:00 00:00:00 Only [facility] 2022-02-22 2022-02-22 Outpatient EL SLEH SLEH [id number] [facility] 08:27:37 23:59:00 2022-02-22 2022-02-22 [facility] [id number] 08:00:00 23:59:00 [facility] 2022-02-22 2022-02-22 Hospital [facility] [id number] 08:00:00 23:59:00 [facility] 2022-02-22 2022-02-22 Outpatient [facility] [id number] [facility] 00:00:00 23:59:00 [facility] 2022-02-22 2022-02-22 Outpatient EL SLEH SLEH [id number] [facility] 00:00:00 00:00:00 2022-02-22 2022-02-22 Outpatient EL GRACIELA, SLE SLE [id number] [facility] 00:00:00 00:00:00 [place] 2022-02-22 2022-02-[address] [facility] [id number] 00:00:00 00:00:00 Only [facility] 2022-02-22 2022-02-[address] [facility] [id number] 00:00:00 00:00:00 Only [facility] 2022-01-30 2022-01-30 Outpatient [facility] [id number] [facility] 08:48:46 23:59:00 [facility] 2022-01-30 2022-01-30 Outpatient [facility] [id number] [facility] 07:09:30 10:54:20 RON[facility]DO [facility] 2022-01-09 2022-01-09 Outpatient [facility] [id number] [facility] 08:38:11 23:59:00 [facility] 2022-01-09 2022-01-09 Outpatient GRACIELA, [facility] [id number] [facility] 07:03:54 12:43:52 RONALDO [facility] 2022-01-03 2022-01-03 Outpatient [facility] [id number] [facility] 11:16:53 12:18:52 [facility] 2021-12-19 2021-12-19 Outpatient [facility] [id number] [facility] 10:33:37 23:59:00 [facility] 2021-12-19 2021-12-19 Outpatient GRACIELA, [facility] [id number] [facility] 07:44:07 15:09:50 [facility]DO [facility] 2021-11-29 2021-12-01 Hospital ER Jacobo Orlando [facility] [id number] 14:37:00 09:50:00 Encounter Ronaldo Owens Peter [facility] 2021-11-29 2021-12-01 Inpatient ER GRACIELA, SLE Emergency [id number] [facility] 14:37:00 09:50:00 RONALDO 2021-11-29 2021-11-29 Outpatient GRACIELA [facility] [id number] [facility] 12:04:31 15:43:03 [facility]ON[facility]DO [facility] 2021-11-29 2021-11-29 Travel [facility] [id number] [facility] 00:00:00 00:00:00 [facility] 2021-11-09 2021-11-09 Outpatient GRACIELA, [facility] [id number] [facility] 13:43:47 16:18:44 [facility]DO [facility] Results Test Description Test Time Test Comments Results Result Comments Source Cytology 2022-07-03 12:28:43 Test Item Value Reference Range Interpretation Comme nts Case Report (test code = 104) Medical Cytology Report Case: [id number] Authorizing Provider: Jackie Villalta, Collected: 06/29/2022 11:01 AM PA-C Ordering Location: [facility] Radiology Ultrasound Received: 06/29/2022 02:13 PM Pathologist: Saskia Muir MD Specimen: Pleural, Right DIAGNOSIS (test code = 3220) [id number] p cdWMxIHtccnRmMVxlcGljOTYwMlxhbnNpXHNwbH WxW6DmktlfGCmxKC7lQS9laNzdsCDdmKNvNNMzC yBsu0iyt550tVYrd7ncRHIRjuhelGt6zHudT08t r7T9ZtatH5scYIIeUWffTZPeBTdyiWMrDXrezvE qMiD1EYkqBUZyUkM4SHVjlWTiXIN8vWonSRNvzw kfRdZ5UDmqRBCoxcfpLNb0HTmyHZPfyJO0GAKok EChH6CjQDHxBJ5akdu8DJS2KWatPYYlSbQ8ZPAq kCSgEJZchCyjDZboa610TSM0DmNsIHErnlDfhJv euP5oCoXiVJAOEBlFFMYZZUSBMbZUBHAVDXaOGV rJXVVCI5SYRfIhOW7LLWIIRMdkFotDI7drEukoe W1kTYYmFB3qEQ8ONDFQMzRuMk6ONO6ONZhCArQN A1diPGPapwMlJVMfSWirDrYmK4edZfJjzSVwEOM ADCBSRCPRVsICAWJJZS9DMUCnYUMUKDELCIzGXP BtT3pFUSWOJEsAQVGPNA3kP2HLK5xCZMhEIFZlT 97OEUKTKMtxmTJtySlyilLiICglo2JcQMmiSBZt JK1zaQksTGJfDZ9kSZPhS2venB2ivbq6TkOeEQM oEkA1SRVoxgG4Qsw4XAYbXJwli0ccd2BwASVtIZ r6hQusRaSiFUUoe7jiijDrLeSyKUZoCMFgXWKac MKdD504u3igi0ssmsNvjZL0UXBtNFR0IRccloGt poA5CSyovYOqSuM3IMbbyzAhVZlqoiGpznLgLuc 0RUJrU393JBE9uDwnr8cqVNP2BHEyTPGaGdFsUl 7ezGIqA560KKXiJOAOKCSofPb7XIIfhvWvroPli YAWm437B182g2vjBPCthxYteRpVesjtt3ykB477 UOUzuZHbcuIhRyFhBOHgrSJgpFK8QIKlSR6gcss nZYcnOSrzBEKbbuL6LLQdeUXjL6AbPDTlHY0uhy muZON2HNgjCHUkMKI4CwFeGVWqv3Cksus9AhVgr l9sse98ZXM7r4KjlEemLFO5GPM0ElQeZb9nvPMb HMCqHP6oOlYfdOZqIDWagi25zJioUIpjQXL0KNR wjyQom6Klz3kfYlPjqtYtB5nuS8KyBNPuJVMxWS SfHuRhbsWfo4Aib7GfqACglJk0d0exUMRwQMUti Nhmz8csCUK6CFOzlDScL6oknA6fPLYoIT9lbeww e5eoWXzuLXtrHJFzhHZ5prY3TWPlvDQzP8PerL5 cAVGkGAjmEDJldya5FyVmMf0brHWmhByuTKdwGg twYWdlXHBnbmNvbnRccGduZGVjXHBsYWluXHBsY WluXGYwXGZzMjRccWxcbGFuZzEwMzNcaGljaFxm FIroLcHkBPMdNKshO5qrLdOdCyBwLdg7KDGouJQ gWAIzTla8FJZgjAQoLUTAaMsobS4oGAOstWgycI 0etGC3QLTakgRzrBCTzP8pEHNMdL2sAwN4GvFzS uO7YPb5FbWQCCHynx07 COMMENT (test code = 3359) a5owxHNzCXWbiAD6MfHmHSVxd5akv3CmePEivZW sIXxyqFHwcrNgth59xIF7nQ35ZP0yOHMsBpC2LP NwhtZ4Vkq4YURsOOHnaFZvS495t2vyd9tlpyNlp BJ0XBXcLOZbK8TuAJ6jACMbgMRqH00ceVMdTMK6 QMZbHGUwuQPkZLGbZVA6KZSrkZGrK2sxORNbYX7 glifrGEkgZKpcQNChwAI6TGXjlJPnM5XhTUWkWJ dgFHQkriq8UwDgCl0alZGpkGugDGqaDWDzHITqG JbpBDEaEeOcY3LoWS4IHIleDFE9dZyxZGfqD7Jk rJBoqR4pdJXubbSbMz7kOQYSXHS3WMIbUIFaXVU kQNWfMXQvbbMpE08cmHS8gFRqXGO1pFKsRV74hN lesyrksbYmmwawcU1lQVMkgKppxiExqDBjZIarm 4Idhbbqg0QbxXCcsVJkoYCuOAJftG3sOEJeLFZo djXdez9yGFwbRSHhhR7qXHF6cA8qz0m0FDMfBy9 dFWo6FuV2YBVmiyI2mGG3MFTsSOSloy4= CPT Code(s) (test code = 3357) m5ldqUPzBRLzbQG9TlOnIKEoc8otu1FmqRLs cGF zVBwgqWOmisAgdo77jXQ3dF20GR8pVTIzHaQ5CG VoiiT9Pdo6LIMgLVXvoDSbU752y2gto2eqeoGdx PL6sMihOOPcamjgHhT2MBfpFMHlfaylYWn3USvj MCEkkZL1GSZbsLRwF5GgMWOaMG1nfpi6PYY9JYs lPCWvFdX0DEIzxHBrGEZowXroBGefu868LMT5Jr ZeZEIcllJayMtdrS2gJbRoLBG7GNOyIYjzIWfjU PUrAPj1IbVcFVNjlz2= CLINICAL DATA (test code = 3355) a1ardOPkPRTtbVP3ThSsHZLsf3mfk1OmxU BncGF sXPhihJHvotExxt35aTZ1wO87UH3aHACkUbA0WA HkxjF1Yrc4NYVfVXFnkZWvE874b8dez6roezCgv TG9PZCfPJGmN7JzLA3rDPWgpWVaY14utCNqZUZ5 PXRaKVUjgYBbARPsYER0LOLdsIEvG8rwVMLzKE8 llspwDBazHFnxOAXrcZS1LWMqkAFmZ7FfRPNzCN djYFByzyt3JgMjRg4riGQdrBinDQfcWAYuZDZtJ YtoTALmDkHyYtllfKIolGpmhBFucDAnPvE4q4lm rgdhgBvycX3zmANaI9TkXQ8qRICzYJ7rLJzOPQx rmuTbonZhNhLxeQEef0Tzjhjbhu9qbUZnoSIiiY Llc9Xomxauft5PACg+GL2nZIiJZgGgnhQ9EBtqZ SsPLXExjtpqUYK0LQVkgie3x07eEVauI9PeA1xf o46hOKJlfHT3KZH9G8pdbuKdNaGHWNKPMXmjfLl qG3PjTw2trXR4z5zhPGl2MOObiERkvS== SPECIMEN SOURCE (test code = 3377) w0htbGYyPCQsfKH0UkJrOVSsi2nyy2Ok dHBncGF tEYzjrLWemqSyuw59uUW9yJ24EY1oMTZvPqZ0GF HvtvY8Wya1AXTzSMKroXFyT445x3hjg2jixoPbp IJ1cMdoRZUsfnoqQsR4CMdgHGFlfjkeNOr3BInh HWFxhJC9CLBdnFLiW5FvELGoLV3nrbr1BLA2LXc vOLLvOjV7PYCoqTDcPGWpzKuoRBdkv093SGN2At PzRADxssYswIumtV1mSwSrOORRZMyNFMDGNFSEB kFMIEZMVUlEXHBhcn0= GROSS DESCRIPTION (test code = n6qmtPBxSLKoaPNCSLWmE5vccgZoOLRznOQl Z3B [id number]) tfuaaZZskLT3yPM1nyVrmvLOftUYkNY4TNFOpFe HtIENgkJWrfjYcTyMuFOVceDLisCZ4HYWqCT8iw clmDEslGRwrKMElfeB1OMFneXYuL5ZqEAHkOO5w oyrwZYH0ZHrvnX8qowQOTecoUk3uoOGsoGfuKfD mKfRfUFRzWGXwVDQraTmkMKTvLGf1oP4ZUufeWD T5MYNIVpvoGRDvQA5Kz8rlSBYjeNBmVIA5KEyhu ISsEUJeHUVsWTj2SMJjGRjogOGwUE1opQykLeev fFufj5DaaWJqFNvhKNHmEGRqTJzsSQHwBI1BXtP iOVSmDAS2OTIxEWn5DQn1ZP8VKaAaEUXqWPO1Ig m8AJRnHYv4YDmaBS5DHWI4QKR4HzOrKUT1TCMaS VDeMTYkXhDxMGGkHKOtPRvmABruvMUvIK0nhNwq cWVhzcCJRzNSnLN5nhQmNDJYzJpoeJ7qlQQtGX6 AJLOhiAPILAI6PR2jAJOJJoxqjIAoLXJuwImuBO jieF3iFK1MFHg6zkGrVIFiFxMcOuSjINy9PZQaB tKkHQ2fmdBurvHkX5SiRxs6xZR3IZWqRDKlzoMc OTIzS7x5k2NikP6sFTQjBISnTLorVKVcy3XlNSF gYDKyNCFxruU4nQRxB1BivPCliJ2rwjE5OBL7v3 UyZWY2yY4mbHSxXLBnYDUyeUthpAq1YBW7qfZgp YHgCMIuFKHcECRaDuyxm7WaN7ExjOOhQT3wIHs2 RRxghdIfqNsvXBQnwpUbp1VhZXjaqqJuxKI2IzH dLGRkNE0eWHI3XfG9IhLtQmBnKQwyfLsthU6nIB AiZ75kr3YHk2SzCFDtZRpsu4vjpBtmb8DgfLNiX VeuESNwvBXoJGfyqV0tYsEft7chyJq6BYprprF0 AHUnma2SRwmlcV8xBjSjk2futMm4UITUKiprijZ 0p4tmdStqm7WjwMUoRQ4FPi0= MICROSCOPIC DESCRIPTION (test code = q7ovkWWgCZElcZX3MsJoPYQkh8yks5 [place] [address]) hRWodrVZbrsOptj65uLP6nC19PJ9xNOHgNeG3ZO XdqwV8Cxd1OMWlJSCvgXSvK032m3gbv7cznvFun DX0cDgqSJHqzjzqStH7SGnaPPIsyildMUn1NCgk OCYugAI8CCXwcCHlN0FxNVMtPN3vcfy1PSM5AYr eIRBwLqV6ONChiBHjODDugLzuZZhdn521OFT9Tw BoODNtedSmsKfvqP0yVnJvXTPEOLQdv7IvDQNsM FxwYXJ9 STATEMENT OF ADEQUACY (test code = 2757) Satisfactory SPECIAL STUDIES (test code = 3376) a6vurYJrIODjl8miKAChtNZnPsEbDkMi ZnRuYmp kiXOhSAglfgCqNZbmh8WrD8AgWrEpQYtoukCyNS PqFywgbcjuWSEeUIO6apQsDSJyRIwdLXWaKQqaS k9zlNVebOawNxZpTIGbp5euqeHRouihhGi2w5yk DSNrTyS9rZAfCPlcK3zdqjPyjPSgR1UskGSalVu 1e7glAfOoGqP7hMLhAHzfD8akcrBqoKAmNENwUZ x6iA93ABItnU8qfJPoCVtjvdHaFcM1AQihBKYcQ jS0KYQepFAnLVQtW0jqVASkVAbyZYMxAAathPYz QHE7hRpyi4R3lUCrdHQigHsiQlFsAiSbPdXSx6Z kRBv2eXsfM2QpDXUzWgK9xHQqNLJvRJvnLAGnYD OeltT0xZfkodCke55vgJTnRPMjFHZpTeJfyIfwY RIlIWCNq0MqeVmpAZR6hFc0xDbhTswvMYF2Hcd2 QG1gaf48ntz9lGxtOJZytvsjRmK6HJucBMJszhj qEAy5XTluWIAwtIM8ZHAapPEyB6PfGHWgPZ5yvj c9ODB5OUwpPUApYiT8HXPwrGArMWUiwCfyCIhap 427MGV2NnPlWP9sF1Rxo9D1mM7xgTIxIZVckSCv XjXkOPDvsi0psLYqDQose5KaQHN2cbC5mDPwsQD vXJFmDP27Rnnuo1WiNrlza3YnI45dlDE7PDbro0 sxVW6tHzT8fdXcUEzaw9pphW9dSoY2XZasIO2nQ L7dVKMtqB1eppciRRRgKwVwelseLEDiyGlcydJj Ci4vwYsoETU7GOuhE1kgkF7lWhC1IWozX9qfxJ1 oAUs7DMyxjGY6IWVurC4aNN5ngcaok7xkMIksEB yzWRWmsoB6mrQ2KYTuhTLwI5EjtD2fSPZcET0by qlvl3spPYG9NHqsWCYlSNM7AyZoPLZbt6Ddmkz6 LxWwq4ParPEtEDujW12bu381ZIPhrnZoM8blcJQ gmrgecAPdeoyaCYpujfZ1TZYwCVJhRRfyWYYzWS ZzMjJcbGFuZzEwMzNcaGljaFxmMVxkYmNoXGYxX BjzV4hqXlCiI6AcVYGbJgKzKYlzHElylGYlwFCw oQR4wN8nJV9iZQPivADhI4FkSIYrniTukWRiYMW 0kRQcyAHpBP1mRJhycXTlp2iia1UpB1kdoSjfxU A4JS9pDMDoMPSoMKcsa5IbsB1uNpodjZZuklnrR QjeuxKdINdhhuszCHLwDEarS0qePyKzWBPcwXfy ZKldq5VqXFAqTXUpGzlvdqRoWCa1jwGePOQlwcl dSQVqkJgkhG8zSnPdEmGwUehwRR3uMZNoH0xdjP YwGTZyCYJoU1zyBnUznI3bsTfyCGhjCxIbOtThN zBEj694dv4yZIAglOZhpmPGcLClwI1bTNnaUMau SIphzFSlTDefk8nwHUAvv2p6bXDyVQKcjyCqp3w lCQgquzScDFExtJLxxEWaMLRbz55bUBkmhBddiD uxCVUjs5TnvSxau8BcJbKmEVset4ZxV74ukDBhk LKbqYssXKEufjLwFYByd47gg2ngGQIeHjI0tWPy dTX7kUMoaMOrp7DxxEccCCGdx1bkSDDzyz4xhbm krCSrq0WjxW9ubdbjUZmlqORuesRfTRGsl5l0tN SsOHLaQNVaNDlfyVx8UIGjx591sv6fqfG4qVBnS XB7QEyqLGLwYUTzigYiWQUryYPddFQeXXYlEJmo XGYxXGZzMjJcbGFuZzEwMzNcaGljaFxmMVxkYmN kOMHmSXabM4wbRdCrY2ItBGCbCxLpzTNnF0wfuU FyXHBsYWluXGYxXGZzMjJcbGFuZzEwMzNcaGlja EiaDHjuWtGwNZBbPGgxW1abGuCsU5IpAQPrEgDq GYcqlJDnfyjbVGecpwXuEBsdtiwcEFLhINbsE7n rSdXyNSFkrZbxQUwjc8GsAIFbFBAjJifypuPtGD n2ooKbBITjpafbdAAhhsjcUNbpxaLkUOrpqvwnK TErAKcqJ6vaJeWkIKDtsTyiYIkpk6LyJHJjYAIn YwrdwsIcSVsmpEWdk4qll8ZyE4fkoFzkeJR9NVZ vI3nncNKztBX2IAS0fU9nXIlbzuNlAQTgl6WeOB VrZEVqWpB0mB2tPQY5TqCEaWdyFZViOVogELMxP GZzMjJcbGFuZzEwMzNcaGljaFxmMVxkYmNoXGYx VNxpD6cyQqCoO0EsOZAoQtWfgIsvVTjwIOj3Vnc wyROewvvlTKuthzZhEHsypcjdUWQtBQllN7iwYq ZkEXUmxJyyAAisz7TdZLUaQGAuJujfpiCaRNUrZ DKuyEYauBJFUN51NSHcUTWusNlnzT4hnQHCXRVd itL7p9G5KDkhUNZaJXr5BSmmmoRsSWGehH4gNWF bUJ7pFPt7tiEtUWLff9VdNX7xWOAobRHwANW3RD Yjz8MbN8Tjd8LaUKZzQRCcsl7txaIsJgOCyNCwX JLmwe85ZVKzWQ3vU7ekBLIpEQEbylIeiRKxh9Eo SLWciBX9tUFeYK6XIbHXs37bPKSxWYKApaLnPKF hqPbyfBK7uiF7rP9uGlGFnLBwGsOWSLwdswRhDP Byrl8dhdXjAEGbROQrn3EenSXgnPPwqoAwU5Spd 6DeSYPvdd74GEyhoTBezb27EP5iC7Unr0HyvF9b HHihAJUhg7HcnOSfbMBsBRLtr0ByP6lbhidcQBn svBNdlF6uKHDnNPr8RBCdi3VcCQLzc4HuCgWaqf ZhADYgSYKlTGBshU23ZPE8vEchqYqlbxBmWW7pW WAemhWtJPYwAURkrB6oEBukhcIcQZMfrdW2t1E8 AAqrQXZewiBoArdiWZU2mmHeiiY5qGBzD7wmfmk kIGbaONZbw8SdeE2zpOEDhXSgz5NwuGZggDIOiB ZvSO9pkdKyGX2hLTT1FApnMKXNGWUfGIcoPYGuP MD0NEwpFaykNKQ5rqRyIKKbs8LhQLxhQ4hxX55x qXdctOk0wIQuaRckcWZpcLOiQOWlcxF3w1K2AYI ms2GypxgsAVFeDVewDGJqSCNnDjOfeCSlHtKfXb WauAdpqXofTxfgUuVuFNIjBXoaK8iiTzCyNqZpA kpiVUE5bS== Gross assessment was performed at (test [facility] enter, code = 2777) Department of Pathology, [address] [place] [id number], Technical component was performed at [facility] er, (test code = 2778) Department of Pathology, [address] [place] [address] 164[address], Professional component was performed at [facility] enter, (test code = 2779) Department of Pathology, [address] [place] [id number], [facility] Test Item Value Reference Range Interpretation Comments Case Report (test code Medical Cytology = 104) Report Case: [id number] Authorizing Provider: Jackie Villalta, Collected: 06/29/2022 11:01 AM PA-C Ordering Location: [facility] Radiology Ultrasound Received: 06/29/2022 02:13 PM Pathologist: Saskia Muir MD Specimen: Pleural, Right DIAGNOSIS (test code = [id number] 3220) FuZzEwMzNcZnRuYmpcdWMx IHtccnRmMVxlcGljOTYwMl hodcJbVIHnlAYbF1Hzrkke XHduPF5wCC7psKnluHCbhS UkPTBxGjYni1thd904mMRw r9znKBPRzuzfqAx4cGuiQ8 8lz9U4UpjcE7ubBWShNQee ZWVuMFxibHVlMDtccmVkMj L2OLogEBUvMaU5PFHmnMOo REK0aKjgLNZpqpsmGtZ1AC llIPBqmhejOWx5MTxaIHFy fFM5EZEfwKOmE1GfHNFdWV 0cvtm4NRQ5BMjvHUOmFyT4 NDBcaGVhZGVyeTcyMFxmb2 29HMT0ZyRyCFYjkkOhjBjd zL5cGmSiWMULIAgRYRXAPK VVUkFMIEZMVUlEIChDWVRP E0SJYnMsBK0OFXDWJFpgDk aIL8ubYjdsfP8aNGQmWG0q LE7HUJYHBaAmVj5IZF1LZT qEEgYDQ2fwQAPgvzCiRJVn KLjrCqNcI4bqWuJnnJEeJV PAJKRJGSZGTaHXUEGHEQ1C TUEsIENPTVBBVElCTEUgV0 wVBPJBBRgKRQRWML0hM2LV Y0pHEWzSFBFtI32QXKZZAW hapBBqjOgxzhBgKQhhd6Vz XDnoPHTiBF4mfCctBWWwAC 5kEYWeK3gzbE8hipn4TkYw GABgZjY8VQVukeV4Riw7ZX AuMZtqq2ftb5UxCVQzVJy1 pKgiBuHkBOWic2tftnFvKh FvROBpYFCeQODtjKXtY104 o5jlb6xzztFfmZE0WIHiTG S1YErdtcHdamL1CPchuEGc JjO9KPjioyDkJBkipkLgwb GmBuc9SBPyB672OHL2nLjk w6huYKI6DBRrXIJqNjKpXe 1jpKBbF013UHQgVZCDCRDa wRy5OXKioiRiwdAkrSKAw9 45M702p3duJMOjwpFyxWoP duuxp7wfG583NTHelNJdtc IdXxBkEUTcpSJuuBO4ERHw SP7yqattNPriHLgkOSFqfh H9ZNGpgNMiA2TlYUAvMC6k jtcfUNS3UFmxADHtQKA3Dx QrBULas8Wqeom1XbUsdy7h uj78AAT0x1CuaDiyBJR3XW X9ZtIuSn2smVCbYBAuND9i HqMumDJbBHIemv11wNanXG bjNLT2ASEvfoKnz8Qiq7no PqWisgEoM3msC9TdYRClFF WnZKVrTiNskyFzd9Jyk8Ju bYLxrUp2u6snVGWuRPOolI dqs9mcTOC5DTFsjRJaA7ir oI4qCDNbOD3trsjvy8kmYH jiMGxbWXJhrLA8gsQ0JMCu pEWmD4BfaT5dZBQeSBaoAP Hsqkc2GkNjWi1ecLWdvRne MFxzYmtwYWdlXHBnbmNvbn RccGduZGVjXHBsYWluXHBs YWluXGYwXGZzMjRccWxcbG FuZzEwMzNcaGljaFxmMVxk EbOgCRLjBDazW8ehJdIhTt BfWvb4IHXjcPUoRJBfGgm0 RWPaxHLlACYLmZpwyV2fYM EoxKajaN7pwNK7LSOyxqHe jFTRoJ8tZKNRlI3bJdO6Uv LrLwV9DXk4SyFSOUDmwt12 COMMENT (test code = f1psmUZaPGMfhBG5DoTmCA 1986) Twi2xrf5IqiCYajBJvZNak oZMcizAaae50tHR1fA42YN 6xZHXuFsN3KHDtngW9Fts9 GVXrAHQzuAKbX766x3eqf8 lgemCkuMC0NFTgIXXqN1Zy SA9tDGRzkQZsV46gxABpHG R9QXSvEPEwwRJxGEBtNGQ2 QTBbvLZwF0kkBSJwSW1nix ygXGvaRXguBWDlzWK5RUMy wISsN4WcLOVyDIbcBCYiox e5SeZiOi2vjASpsEuhYCif YXJkXHBsYWluXGZzMjBcY2 NgJD0VCEjtJZK6kGhuHXht U9VacUPhjA9bfPVauuVuGl 8sVJXOPLI2LARwMZXuSDFu YQHfHJOytzOrB40gmFT0nX RjCKP8eRVuPQ52sOenhjca laNyklzjwE4bZSXojVjsac TjyOLmNNueb7Vuwvyel9Na vKJahPBwvXWaXNNkjM3zCN VrGQJcbsAccp3hKMhgJVHp tQ2mHFM5sL8jy2t0IQBvGr 1iFVe3ZqA2VEJpvaT4mUG8 ZWQuXHBhcn0= CPT Code(s) (test code j3aydOKkHSMrwER7PmBzBW = 3357) Xsq1hun7KrqCKybOWbREqv fMSviiSuod11aSZ5iI50OC 9yZXRiCsP1PYTvngD0Evf1 JTFhUFAyrRDrT714r5bjv3 ulisUmiKW3dMliRDCbmywl DdF8ZLvrADSybrepBTj3AC jaOVOoeQH8XUGbmFYeY8Qb ZWIxCG1xhak9IFP1ZXqzII UbPuH4UDTttUVjLVSbpOvo RBtci836AEL8OnSiEFMtdz UrjEevqC5eClOsHPA1SNMv SJaeJOemTWJuZBf1RyQnRH Bhcn0= CLINICAL DATA (test w1vgqIBsBZUdeTW7HpBrRQ code = 3355) Qtq6glk2BliQAxrNRtANqy mZGovvBujr53nZF7bB10OY 6oVMKuPuB7XNSeznQ3Yix2 CITvGSWsrJGoG500o7uks8 mscoGtuVI6CXVhBBAsO3Qc KW4bLMHfzHXdF36ytTNnOV C8PSThTHYbtIRbFAEjLNN4 MTCfmFTfQ4awGCZgWC4gwq loMKwdDHqaXJDnpUK6KVIo vDCiV7RgPHTkJCkwOAPprf h2PuZaOt9ynHNnkZgiPTsy YXJkXHBsYWluXGZzMjAgUm lnaHQgcGxldXJhbCBlZmZ1 y7ezvfcrcLmlqT1qxZOkA8 WfLD2tOVPnGC7mLXqXNKfn epSpmsInHhXdfMZdq0Eddw hgte2odMXbuXAcaWRan2Zk sytmjp0PXCp+BP9pGBkWQt ZlvsX5LKpaFCcSKUNyaman LLG3MYVasdv2w55nELriI3 YsT2fad70lRXZhpBU6BTC0 N9oofjCeRvQDXDCJQCffzV egS8PuXn2ufWX4k5noVAl4 YWJccGFyfQ== SPECIMEN SOURCE (test o8jdnZHgGQAnlBE0JbJbDF code = 3377) Qvq1jcy8YotQYodZPhXIkj fSRuobBnfj69mCA9hN94NF 3lJPIxThB4OBDsqbJ8Ycc8 ICDsTTQosWNgJ292p9gmm5 xdixFziFK6jAeuLOXbhprn VbQ4UHmuHXOfcnkhPYb3QQ ogRBNxwTL0BQBnqAMjH4Vo WGLrCU3glsl9AGC3WMxhVZ GnNuP8IKHjyDEeQBBncFav HLfjg932PDR6XmLqQSPssb PjaTcruX4tLeIjATDFUEaG VCBQTEVVUkFMIEZMVUlEXH Bhcn0= GROSS DESCRIPTION (test h8hvgQReJAZkjZPRZQDgS0 code = [id number]) rybhOjVVOcbACmO8Upyllg XTgoHU1xLY3coOfbjOHcoK GaVC3NZGFeSlYbUBZboTNx hzQuAvFmKPXkpHSbhYS9HY EqQV5ieifxVPpbJHacZUXh bwN6FIJumHGuN5ZrFYLePX 3lkpszGHH6SVxliI2qrzCI MlxmHh5lcNLhgGqhXfPnWd NoYXJzZXQwXGZuaWwgQXJp SBj9gY0HImlvTKQ7JILDFk zfMMRoGD8Da0dyPYJvfRXw AFU5BNktkCFyNDKmWVTuVT e5GWKsQFtctDIzVG7ouJml GwqktUujn1AqiHSaLXjeAG IlHUAtOZobPGTpCV8SZoQx GVOpNPH0RFWwWFm2JNd5GF 7VGcGqQROpHQG6Tlg7RKOx TRy6GUwvTD4BMIE5MPI7Ji UiTMQ1WHIfAPKnGSLqBpTn XGYgQXJpYWwgXFxmbCBcXG 0nePteaLLxpoZYLgFHtTJ8 ixGoFACRrQklnL9sfATjTB 9DDPLfaSQAMAZ8RG8kIBHX ClxsdHJwYXJcbGluMFxyaW 0nND3JEYq9piKiKZSrGfMy YwStXZw4NVSyEfIqVC0gte CodoNrO1PsMlg4aOI1CRDf PXVgpcNbXQGqN9j5o9RfeL 8xYUNxRNHaJKhjETIgy2Dk CZFxTSGdSSQavpI0iSXlX8 UqwATchV5kplA3YFK2u0La VAQ0hS5dkRNhWKVwVFVokJ ofeQl5PKE6yyFmqYZfGRQy RMVyWMHmVxeqg9OsX5OkfX HqFC6tQKt8BZvjxfWryYqi KJGfsyHsg6FcJLgxtbUkgI E2CcMrXRQfJB7sYWQ8AsV9 XuAxRnQdIXffjAkcgT7cOE UoB22pp9TGb0UrABLwHGkh n8hkoXrqw1IklBFvLMypJV NaqYJqNEldhO1tCjMqa3tk lDu9APlcrwO5EINghr4UEh mqrX6dXxLgl4bdyLj9OPAO WpmwdyL2d1bhtPzrs1VgfC PfDX8NIq9= MICROSCOPIC DESCRIPTION h3rjvUZgIHYkaVG0NlHdAF (test code = 3371) Pyp5xyj7RnzEIbnLMzYQhe mANiasAhdb70tVF1qA48BR 0yVVXgBwN9XURydiA7Cds4 KKZuVURbxERsK121e1jeb5 czqeGbdTH7jXgaPYTfkplz RvY8JWcdCBTsywtiPAk1AB rcRRIatGH0GKOojYAfE8Bs OUYtVU9xwvm0ZGD3BPpfVO ZcBtH9FDQhiIBtEWFcaTre RWilz276GSH6PlDrCIYhst TqhHgrxA7aGlBxZAVBXWBl r4DpNAEiOTlwBMR7 STATEMENT OF ADEQUACY Satisfactory (test code = 2757) SPECIAL STUDIES (test m1tyfPEpELGat4efRIPpkD code = 3376) FuZzEwMzNcZnRuYmpcdWMx DMvpavNyCJxjx1LfM3DnPo AwMFxhbnNpXGRlZmxhbmcx JMXyYRV5ihNxKLEnSXqvUJ XuLYfpVh0vnQOufAubIeQw XIZyg0avkzNJwvzrvCg7k6 eeOEQxImX6hXUqPWxkQ7fv lePxjUNgN6OumEXbwEr6h5 rkGkUyHgT4tDBnUNlxX4ly kvVheQMlWUYuMZr9bC48GO JrsL1xxIRyBSdbkeOjRpA0 QTbgAQHdAwI2RDUmzZXzYG XzZ3lqRZKpCXouLRDcIKas yZRvTSV2dXher0U5yOVgvY UhfVahNcYdEmMyExVPs5Hc AEu0rZlfF7BkXBCdGwW5zZ QgUGFyYWdyYXBoIEZvbnQ7 iTrejrIds91hyIVvERVcRB XdXsFjyWbdEGOwLCJAc4Dt hUxqJNI7tFl9rQgcEnijUN O5Tqm4RF0xeb66ggu2eAzx TOMlinihLnH8BGdrNRVhqe efODe1CVdmUQBzuUV1SBIm eFQyS0EhNFHmJE5avsf2YY J9IChnQOBuSmT2VWRodOYt QGYleFycNVagj402WPC7Dz MdTI0eS5Eat7T0jN9pcFXc JHDxnKIbRdCoGOQkry1agH LzYManu5NeEVK7qqR4zAFj kFHyVEUbWV17Xnwcv6AzNg imx7QsN06qkNE4RCami6pv TE5lTwU8miJuJUkzf2dqhX 8hVwJ4WOrlNW4cHZ7oOXTt nH4zdsgxOFAxMhOjveijVR WurHwzecDhWb9ocZldRIA4 LMqpO1euwX5eScH0QBruA7 uwhL0nWCz2ZGspdOR8MVAr mM3wTT7wwjkjv4smXZzfUM roKAYiwiO4kbR8KWNxeOTs M9GiwL8dETPlSJ2dmumyn9 ezUOL3JUokARSqHEF7KuFa EDWrb6Osfcj2HlQnj4OxxE KrFUyqB92ot551VJYxtmIc V7rfqXVrpeelgRQpmcqaTU dmxvF2PQXwVRXdPEayEHRi XGZzMjJcbGFuZzEwMzNcaG ljaFxmMVxkYmNoXGYxXGxv Q1gvBtYhJ8CdVHHvWiBjPJ zjCHihuAAbmSTmnNY2fD2f VL1lRCBpvIVwM3KwLOTubv EffYRqRSN8eOWxiMOaAP1q JRgncAXxq4otz1DkP4bszU xtuPH3LN2mGBEyAVKmJKws l1QcjO4pLfrxrJKoauybRT xmczIyXGxhbmcxMDMzXGhp Z9niWuXaLBFadHiyVCbcv8 NoXGYxXGNmMlxmczIyXGx0 cmNoXHBhclxwYXJccGxhaW 2eLiJiBrEyOkqmWB3eKELe A7ledCRkESGlCQPxO8xdLd WbcZ8rcAepWXplYaMcZvTl BcZEc115fz3kXHJajDCdfp RDpVWeuF2oACbsGEryIZbr gWXrCIcez7fzQJSas5a3aW MnSNRxmjEzt6afLXmjayDl VLHbbYFumRChGBBnh53jSA bxvZbmmPxtCAEnp2QhjIle v2TtGdHcAIhat9ItO19hxN JvbCBzbGlkZXMgcnVuIGFs d60lx0liBKAvIoA5iQSfiL T5wRYmhFGqz3JwyRtjLYYy u0lgSMYpwf2jvxvnxDUet0 UrrP8ycaycOTniuOGuwyNa DBGtj1p4nOGtGRYvKPSrRY fshRq7MKZae148zo2gdiQ8 hEFoTIU6ZUvqTTLpVPNpld UgZXZhbHVhdGVkXHBsYWlu XGYxXGZzMjJcbGFuZzEwMz NcaGljaFxmMVxkYmNoXGYx GUhwG3dwSaMnQ9PhBLOdUc YitEYlN4aclJOoXXWdRRjj XGYxXGZzMjJcbGFuZzEwMz NcaGljaFxmMVxkYmNoXGYx IMixQ5wwIiPrC7KfHMLlZj IgIFxwbGFpblxmMVxmczIy AJfjtjanCKNbUDdjB2brUb NvBZVloUhjSCrme3YdBDWh LQJvJmkheqUeRMp5yxFrRH BhclxwbGFpblxmMVxmczIy ATsminbeEDAsSTjlQ0rdFg GzGQAjfGohRSezy2OjKISb XGNmMlxmczIyIEltbXVub2 ztu8ThC8zdyCjaxTE7CJNn K4dwoSSgcRY0DCF3xO2wAE oczfFkDKTiy1WyIUBkUKUd QgX8xA9bSLJ4CiWJqMlzIS BsYWluXGYxXGZzMjJcbGFu ZzEwMzNcaGljaFxmMVxkYm DwZHUcLPanL2tyQoTvS4Gj YPKiUtCiqOfrKSaoYLf8Rb xwbGFpblxmMVxmczIyXGxh lyseQECaODveP5eiVlErOA BamOjpCLsjp8JhLRKfSBGj MlxmczIyIHMgTWVkaWNhbC FGAV33PNLhMWObjWlgcE0b zKILPHSvbwX7z4B4NQpdGJ AlANw1WDtdwzZeIOUdqK7d GPTmGP9zZRm8qdUpRORqq7 QnYY8yASPzjZGyFFW5DHPg s3PuQ9Jyx4YkIBObVVJtad 8eytPgVyTGaOOqINJlvt31 CUViIG7rU2dlCRYhEIIrdt AilBTqv9MrVMXzzTO4kFGn ER8FMbUBe29sURBwTTUItl OaYPVnxDfkpKC7wiH3iB3g LiBUaGUgRkRBIGhhcyBkZX Fnxm8hatNpMWLrPIIym8Ri dXClpPKwzzHuZ2Rzz3FzYM Iqhx30TLwbgDOhli15WS9w G9Lzd2TagR3pPUurAQSyg8 KpiXHlpGWuJVBet9EfQ9pr hzsmAIkidOWgqQ9dNNUdEX m6LHZlj1VdZWAks6CpPvCg ymSvAQUuNRZbLGZrzC37NP A2nJdemMpieeVdAY2aCITt bvBpZEJpJEVupJ6cLIibci DeBDTmavA9e5Q1RBsvOFUf rqTaHufnHPN0xfUbtgG4mW AoV8mnjilnDPvuKAZjq4Yc zV0myKMAiENrt3DlgAWuqZ VAuBIfZF7dqdEzWM2fQNR2 ODggKENMSUEtODgpIGFzIH R9XKnnNkhjJTH6aeMiUDEu f5PaPUjkN8ahV54ylKrtuQ q7jUSzlLriaQMnzKQqDBAu lgQ4v2L3YQNbf4FhfbscVV BsYWluXGYyXGZzMjJcbGFu ZzEwMzNcaGljaFxmMlxkYm VuCYLsZRnlY3zhElRtWgAs AxqdVVJ1hE== Gross assessment was [facility] performed at ([facility], = 2777) Department of Pathology, [address] [place] [address], Technical component was [facility] performed at ([facility], = 2778) Department of Pathology, [address] [place] [id number], Professional component [facility] was performed at ([facility], code = 2779) Department of Pathology, [address] [place] [address], [facility] Test Item Value Reference Range Interpretation Comments Case Report (test code Medical Cytology = 104) Report Case: [id number] Authorizing Provider: Jackie Villalta, Collected: 06/29/2022 11:01 AM SHA Ordering Location: [facility] Radiology Ultrasound Received: 06/29/2022 02:13 PM Pathologist: Saskia Muir MD Specimen: Pleural, Right DIAGNOSIS (test code = [id number] 3220) FuZzEwMzNcZnRuYmpcdWMx IHtccnRmMVxlcGljOTYwMl pzgiGxDZFtyDFvZ8Qbhkwg CNdlLG1jIQ0ipAyzxLMjnN DaJPYxIfWuq2cys234iCEj v1mzEEHUpacseLo9nLvgY3 0pf3M3MvkhR0ehRFExZVum ZWVuMFxibHVlMDtccmVkMj Z3YQbkBZDvTsE9THEczEEd QXA0pNjgMACzyvkuEyC6TM qdSALjqmooTPg3RVxcDGMr cVU2CDQcgACfL8JnQCHxVU 7sctf7BKP0OKqqXXKeFdO9 NDBcaGVhZGVyeTcyMFxmb2 81UFP0YdSpBXTmguFrqNon hE1aOlFwRZVGXEhOQUKVLE VVUkFMIEZMVUlEIChDWVRP Z7QDGfQvTN5XDRFMOPjmTj sYF0cfNsjnbA6dJHRuEB3c QN3SSMWYNbRfPr7NOR1TLC pCSpIOR7eaCJIausMoLPMd FJovWeXhK0sgXqQspPSuBL KGZZVUTNLBLiYVAVKJVW9Y TUEsIENPTVBBVElCTEUgV0 lAUUHQIOoKZQWGVG0jD3PR Z4gTXOeNTHLwZ23MCGUTQD qwqZEmaHcuqpCzHXkdz3Vl MHvhTAYvKM6wjPleDNPvKG 1fJYVaM8ayoX1iekm2QaKv MBQeMuP3KNTgyaM6Qbr2EZ BhFUapx9dmo9UdREYrFKu7 xQypLiAlRDVwr5udfdOqFi ZmVVYuAZBpIWVvnNIlT574 k9mmz9bpogHsmRN3YICjFP U8UJowcpBvweZ8FFfgjKCb SvA8GIndlxToTTyfsdYlep TmQsa1XOOfP791EMU8wKuj b9jfYHN8KAMhDHZxWsMlSu 4gjFNnF605FSWtGHJYNROk jRb3CYTzqcXsbaQukGDPh2 59B817h0eeFSRiuzHuwQqN soxga1wuF157LVVnnRSltg FfUqFiKAUtqCFopWS2ZXDd KN2eyiagTLweYIzbICGkht R0KGXwlBIhX5ZaGEFiKU5a jddpYBV2SXngUSHcWOE6Gp KcNQYbp5Wuibk5UfTudt9x nw66CBN7m3GtwNrfDCR8DC C0NwUvTg8uuBDeKNMvPF3f LnQazREkOUKxhq60fUuwEC buHOH5RVEmohVlj3Vmv7jb VxIqweWkK2sjK3XpNANlWR OrVKOcQgEqygCna1Qnq4Tw vGVmfBl7o1rdAWZfGNWuuO jwp4dnAIP1WQPofWRtV1cn wR0kMYShAN0uilwdv2ceNY euOSsuSGHlnZT2bmG1JORo bFZoA7OgoF1iEWGtGWwvAT Lbtng3OpPsDm3hpCRjaUzu MFxzYmtwYWdlXHBnbmNvbn RccGduZGVjXHBsYWluXHBs YWluXGYwXGZzMjRccWxcbG FuZzEwMzNcaGljaFxmMVxk DdCcNEFcXWlyN2unCaJfWk JxXzp7BDHebOZhPLOoUbn3 EXQkdPTfAHHPeHzhyI8hXG JdlFypgZ8pmAO7TXFqepFk pCXKaO7yTFFJfK8rByH4Jy XtVuH0HYj9GwAHBCHxbq54 COMMENT (test code = q8vhsOCfTKWsnGT3SdGbXR 3352) Fiy2arg4UbwKMgcMWjWOpy mQTmzsHrep20fKR9nU89TC 8eMAQtNoA7TVOhpwI4Slz8 UWSpGXBroIZuZ445c4hph6 sddxZjoNM6BOJzUTUtM3He VQ4cCBPooBTqC28obZOlEF P2SRBlFRBmjMDwIEHuWMI4 RIEsgUQhX2jeFORbZG0fbd pdQAxhKDqaXINodTD4KVBj fKUvO0MhTSFtZKasQYOhvy y6ZvFoJs0dwXPgpTmuCGql YXJkXHBsYWluXGZzMjBcY2 QlBK8DANycOPB9vHsrERxa T6RciCWlyP1miBTsxyVkDg 8uCVOCSCJ6YRFnSIIjYMFq XTXhHSZsuwGqS49abGF7vW BmUVB8uZHnCV90iDhbsdnh alFfueqlhT2qCXFowOswzj YjjMBaQAorv1Seehttn5Wk eGJqpENsiZYsZLBpmZ2xDI RmMTVsupMqul8gRAfdPDNy dF4gQEW2uJ8od7a4PVKrWm 8sGDm4VjI2CJTurdN3tKV7 ZWQuXHBhcn0= CPT Code(s) (test code j0ixuETvHWLkvDG6XrJyTA = 3355) Wvk7dwb4DtkQMcxKJzDFql cCQnksOeal02tVS8wD43BC 5sPKPeDiB0AMCzlsN8Skx0 HUYcZLHkuCWmR936v3pgo0 taaiPjuTN8wYuqGFYgcbwc JfN3WDcoAGTozmiaRHa6XV stNEJqwXE6PTWucIJiG6Bb MQBhPC0zrnl9WHH5QMtnSD JsFfJ0BAYloSJrXMMymRbc PNxlu517LZF1NsDzKRQdym BnlMzceA8fDjVyEGB9XYTa GIdjDJfnLJOkTJo2QkBqTK Bhcn0= CLINICAL DATA (test q6fquXHfLFAxfAE5ViRyKL code = 3465) Gif5svn8LtbUBnaEWjCEne uTPehlDwxm98sEC7mI27NO 3eEQIbKjV7UVTcwhN5Cag9 DWIkXEBykFIeT010n7vqe2 jpkpRjqRW6EWSkAXKhF5Yb DM0yPUEzaPNfI39uvXUrBV Z2ZNFdWPXsoOFaUXNeJYV8 GFTqfGAcC6yqXXCuRK2kik mtSYxpELwkOLXikTT0OSCz yCJbZ6YbSKYcWHwePLAnhx i9GeLqIk8bgRFmwYkhWYlj YXJkXHBsYWluXGZzMjAgUm lnaHQgcGxldXJhbCBlZmZ1 c1cusbyypAimaP9qqLCxP3 GaJJ9zHSAtPC0vDJtFRSia qdQtxnMaLzMxzIXdd5Mncg sryj3pyQBqdUAvhMXdc4Zj vrwkyo1HMXg+LU9zXAnQFu AefbR4NAvoNHnRKDZxympc CLE0YAHxmcd9c64aZJtqW0 TbG8tdv72bREFmbZD1FKQ8 A2hcpsUfCrZLCBALGLsoqJ bkX2IdKq4yuAW4o8xjEVq4 YWJccGFyfQ== SPECIMEN SOURCE (test t5ttjQBtDRKneRE1MbPiXN code = 3377) Dlq9fah9SmrSImgTOyCBbn pEHtkzXros85sYR0gP88CI 2nPVDeJmV0ENVfkjH4Hxy1 XPOcCYSsvBCfN018o6xoc4 lwckMxlTE8tHycOUWqgaee IdY2CYkjOPHurrruOBa6VS ugQEAooBH4JDFwdOEcJ6Ap DVVmLI5uise8SWK8QBusTT VfWrE5IXLkwKWvBUNsvZfg QNmvh191BEF3ZwUsKDWajp NbqRfrpS4uMiGkAXPWGHyV VCBQTEVVUkFMIEZMVUlEXH Bhcn0= GROSS DESCRIPTION (test q2gubKKlYXZsdRBUYBYiB4 code = [id number]) ryovIkCPWlfGPdC9Crqhyg IJjeQE0dTO5smOlabIOzuK IyCW9IHILoQrRyRVGygNRb fqFuFkYwTDByeCLrwUQ3RX SkTF7zcrapSGtzLHcvRKAs zbM1WQGheLWyU9KsHGIeMP 9asehaYUS4THojzA1tnyIQ RdshQs1xhTDaqCbfVdJpUa NoYXJzZXQwXGZuaWwgQXJp XCm4qU9SFcikWXF3YATIQa uaEHTzYZ5So9jpBFSwzRSz YUO7NBvsnSMlTWHnTQIpOO n2WCYpXTxpjDWhMO2kyZzp MzaoeLlez5JlhHWcAJqnFY OdLMBoXCuhNQOsJX8HYmRq BQWeJPG6KYDhBXc8FAe6PP 3RQuZqSTPoBWT8Xnz2QQJv VKy0AEntFL1OUIA9WPS6Eu YtJBW4TKFoJYEtSCJbNxHe XGYgQXJpYWwgXFxmbCBcXG 6mjUvznLXnfvKCEbUZzFY0 ebOhLWTDoSaamD7xeOXsLC 4LJINnmJTVINU2IR8mJYGH ClxsdHJwYXJcbGluMFxyaW 7kUN7QFQj1tpLpOHEsTkDo KuFmRNb8JCBgLfNpPF3fsa KgzgPgI0NlCbl4nOE5VUMh YALjxxHdKLXvQ5t6o6EutG 1hAKQcFISbEDxwUEBag2Qv LEWaLLUzDUOfrwQ3oGAhF4 SxbCWslW0ejxU7NOL3n5Ex ANT4iD3fnADtMMLaUGQxfX ueyZy5GZZ6prGlaXKeEGEg EGVeFNJzLjgph7OpQ0CggM MlUU1sSLu2TWrsksNxpUsb OPGsekSfk2BuZSjtvwSvyK E0JhBiECHfTR5rHLN5OyS7 CcGeDpJtVAeauUpjqM2aDT TsS21cs0BMg6XkDADyDKdm g4uveAfna5QvmUNhJMzcFY PxzXLdPUxggR5eYcObg5gh uQh2KFcsyzY0HABxcv6HHq lvjK4vIpSrk6jsvIq3AFYW KekjkzR3a4sexJqaf0WsxZ DsHI6EWr5= MICROSCOPIC DESCRIPTION z8vxvXFzYDGfiJO9DeDfVS (test code = 3371) Lnv5hcy6NndWJyeVVdXEjo jSKpquUjhk72wFG2dL42AU 2aYGBiRgK5DYTkhdJ2Scp2 CVCpPPMelOIhW645k7oai9 aszeLuxRV2cNlgPIHhfqzt YnN7GQmuVFCeeezyBPu3SL txWFJiiAG0JKAqaBClZ9Be BOMmXF8ujxz5YAL6INfvAS YoJlJ0KHIvhURxUTEqeJpo SOmmd587CUB0PaGbDFResu XltRvdrZ4oEpFyLFAMGWTn d2TlHIYnGHbsMDF4 STATEMENT OF ADEQUACY Satisfactory (test code = 2757) SPECIAL STUDIES (test x2rkeCVhXDMyc1usGWZviV code = 1896) FuZzEwMzNcZnRuYmpcdWMx FMysrfSfASzfx9RqE6BmPw AwMFxhbnNpXGRlZmxhbmcx XIYvCSP4maAnDQAvNKhdGK NwLKayGb7szAYlkDefIqDk JMLnv8dfliJHeayzqLn3a6 hoQLGlZdK5iEZzKRqoL4cd maTxnLSjA2HgyIXuiUp9e1 ucUiWmMnH9pQMwDJgfY3oe whYoxLXxUWIzGEz2iG03VW InrW5eeFQtPMerrhDoUzC2 AGvnIBPtBhV1ISZzmUImXD IkK3taPCHkTUnyAVWvQLcs hZMmEKT5wZgsy8Z9uRHhpH DadSjxFbLdFeTeAoDNt5Zz JNd7mVdwY8HtZYIhOmF4nQ QgUGFyYWdyYXBoIEZvbnQ7 bSvafjQrh70ocKYkOPBmDV VdCuYbsQatWQDeBUIRs8Kr xVafHYQ8zMg3cKoaTuxnPF Y9Tpb6TX8kai91xcb8tSjc WKMfkovvPlU8KAyuLENykx jdEYn6PGrrLTSwrNT7SPYx wYEaV8DlIFBnJX5pnew8PQ W7ROpwPCGeDcW6XGLjkLXm REKthXijVJdty504OFY1As WaHT0uS5Tru7E3zV9yzVVr CXIhoBTiRfJiQBYgee7uyI JsCWqwh1UtJHO9lbZ2aBWe gSJsABXsUV13Ltcfo1PgGg thx6XmP45inUI8HCtgu6dp NP6oAbG3dtHxCChxh8cpmY 1oHqD9ENixKD8xHD4wTWVa cB0bcpdeIYWrBrIepgslNW YoiEzgwtMnXl5eaPfyARP4 DHdwG2vzrY1wUtW1ZUnwP3 eolS5aMDj4MHgztCN3PNOh tH6nJC9wczdpd6hfPBmwET gvHCSybeC4ksX7BJRguISq A6XldP7yTYEeJM8zaxwgm6 pqOWA9BRtfGSUmMFL0ZiTr IPJwm6Vdqgj7MsMas4PoaR QlCQllJ77oh322OJNpkbHd A6vlrVAvvqpulEYqdeszHB bmajP7EYLoQGVeBEqtVUPj XGZzMjJcbGFuZzEwMzNcaG ljaFxmMVxkYmNoXGYxXGxv J2atArZsP6LgJCNaYcBjTL dgQIgpbEFujALyqZE2rS2x XI5mDALqmVYsK7VrMMIwyh ZetQDjLID3hHQszPXdEK7i HKyojWVyg8ann6LiA0mgqQ lzrFR3ML8nZUKuQYUaPYym w5DbiK7wSdqtnYCgszviGY xmczIyXGxhbmcxMDMzXGhp E4hgFnVvMLNzpCkjHStxd1 NoXGYxXGNmMlxmczIyXGx0 cmNoXHBhclxwYXJccGxhaW 4xMsShOmPsAhguLH0vBUMe H0eyzCJxUGCpVKPqW9rkTs DtgO9ekPzsWGgtDtDxXwPd AhDAt524so8xVINwgHJkja IAlPJrjZ3jIQqqRCnrKOvr pPUyRSbfk7baTADee3l3gA VqDCWkimLbl9hmXMmyomYg QNPgzXOjfFVdHVWir12rLW mhzUjflIndYUCgm9TdrYaw n2AeVxCwCPpza4XvG46lbQ JvbCBzbGlkZXMgcnVuIGFs d36xi5ebTAJjDcA8mEUguU Q5jKEigLGze2MjzPugPDHt m9kwXOChiv3ghjwvhCLzb5 XuwU3etwefWXxuzWGvtxQa JDPmd5d1eXMpSJVxYXGqST ajuFs7IDRmm833rz8amlD6 bYXmPIG0VJtsANKqRUOruc UgZXZhbHVhdGVkXHBsYWlu XGYxXGZzMjJcbGFuZzEwMz NcaGljaFxmMVxkYmNoXGYx GIspJ1hrEsPaS0WwPWJuXe FayYQiI4csnUVfMSXcUOvb XGYxXGZzMjJcbGFuZzEwMz NcaGljaFxmMVxkYmNoXGYx XSzyW2jnAqDtT2GuVXKwPd IgIFxwbGFpblxmMVxmczIy SKndkfnxLOSbMNowY4ibEn SeSIBlyWchZVnqd2RrKZRh VNPwOiwytmPyEHy4bfBaUV BhclxwbGFpblxmMVxmczIy HOobketpUVOuKVauA7jjNq QnOWHudXwoERasl1KyBANo XGNmMlxmczIyIEltbXVub2 gwz3BvA1wiwNshhRQ3CDQa P6cgcNUtoGO7ZGX7tS9uNE wnptAgKNEin2VdAEHkYMDk PhF9fF4eCPR6HjPIhNkcXE BsYWluXGYxXGZzMjJcbGFu ZzEwMzNcaGljaFxmMVxkYm KuKLCjGFwuG9xrJyCvZ5Ah EVBgDtMmzUgjYBqjCSp0Nt xwbGFpblxmMVxmczIyXGxh kwzqZSSoXKmyW5ilJaEqRS ChyYivGHlub3YxBDXqGLGn MlxmczIyIHMgTWVkaWNhbC APFS70CVUsTOZcwUyryU4x wMVUOWFhzhM7n7G0DLhtDZ KnKNv8HRmxduYeEWQngT5l ELOyHY1bPKt2jjDjALBcz0 IiRO8sJZFexXCeOPZ4JBUe n2ZuW7Ggi4GsAVVyWXOvqh 8ejiHuEdAEuJOzRCKioy59 BOQvHE9qG4lqGQDpEPBnng VpxMVoq6UaLACopKS2tPPc KH1WRwYIg74sQUVzWCPMgn TmCSSjiEcjgAQ2myZ2mT7k LiBUaGUgRkRBIGhhcyBkZX Iqcy4hfoSnMDJwDJYvl4Cg nNEsaWHagnXhC9Xkw1TyBY Yote68GYfqwSHsjh35GC7f V4Uvg2CcuY7oBRooDEHqs8 WlgHHcmXLaLFKvj2FgG4mq jwnuGOlnnCUemT2eDMSyLE a3VXYpx2PqDGGsn3XkEtMf vzYsCJXaAJWtPAXuwZ28JU I0aMvnrTordjJdYT5hHSCr uwGbENPbTBLfnF1xHDlzrt IhPBKobxC7r1K3NRrjWFAg ssSnZqhpBVC7pdHyvhT8fR RqP0kplkygYJehRXLbq8Zk fI8bhURYvJYrt5TclTNzzZ LLpVTcYQ7vboMrTY3fULQ9 ODggKENMSUEtODgpIGFzIH F3NSamVvzcPLP8zqEmEPQg l2QkDDwdG8ibW02cnDitsI m3lRYhnXqsfMJgnZEeTIVx gwK8x9X6HJCml0OznahjOX BsYWluXGYyXGZzMjJcbGFu ZzEwMzNcaGljaFxmMlxkYm EeVXOwQNktS7mfCvLeOaIe NjzaTLK1jV== Gross assessment was [facility] performed at (test [facility], = 2777) Department of Pathology, [address] [place] [address], Technical component was [facility] performed at ([facility], = 2778) Department of Pathology, [address] [place] [address], Professional component [facility] was performed at ([facility], code = 2779) Department of Pathology, [address] [place] [address], [facility] Test Item Value Reference Range Interpretation Comments Case Report (test code Medical Cytology = 104) Report Case: [id number] Authorizing Provider: Jackie Villalta, Collected: 06/29/2022 11:01 AM PA-C Ordering Location: [facility] Radiology Ultrasound Received: 06/29/2022 02:13 PM Pathologist: Saskia Muir MD Specimen: Pleural, Right DIAGNOSIS (test code = [id number] 3220) FuZzEwMzNcZnRuYmpcdWMx IHtccnRmMVxlcGljOTYwMl ylifCfDKJntCQpN7Rqpbfd XYcmCN7cPY8gkNfdgELpgJ PzZRWoCiOfn4dhl258hLZd i1bzBKESchkunNl3nTehB8 3et2C1EhljI6eyCZDsGOdm ZWVuMFxibHVlMDtccmVkMj G0MRcxOQSsQoD7UONjiGFn LHC7hSpzLMJrxdjiMoC1RZ veTXIlleeeXZh6WYnzNBIp jTH2FOYooVUaN7ZeNCThDK 7mzss3BNS5ZFcbKVBmWfU3 NDBcaGVhZGVyeTcyMFxmb2 55VEV8KkCzNJAfzyYjpSnl qW3hYaWjOYIZPNrAVESNWP VVUkFMIEZMVUlEIChDWVRP A6ZKRtUlDO9KXBCZPVprKq aNY2djYmyqzU0xEEJkZR9i FK5QBAATTtMiMz2GEZ6OKM uDMhREZ8bhNBPdaeVxVXNi BUgnWtXsR5ncZmAhfFNpOU MBRAJJUZMYHyQCWCCOVY2B TUEsIENPTVBBVElCTEUgV0 eWULDZADbHYMLNRI5gU8GM U6uTSNwWFSPaE62HPXVKUO vmuDJdyYuftaIkOJlek9Bt WUgcNYYdCP8owRyhKLUdJJ 0iHVLfF9nvmZ5yjny1EgUk JOLvQbO0NYKrzsH2Dwf4YB YySYqih0wsh1XoPFHeTRy9 pIenKcJlOKTgo7eomnJdBv DaZIQaZKQfZHJefOJmV510 s3iws6jkmsRglKI6OQEyKG B8GDfqerYqhrI1NXbyxPAy KaL4BPsuayLxMIeqgiIvpx QlCli5DJOeA979TLT5lNxc k3wwMPI5QPQwQXHnHySvFf 3lrNHsI035SLEtJHUVZRJb rTx7JTBhyjQmzvMaeLQLn8 25J976e7ubTLKnuvLdzEmC pgsjk4bwN029IZXcdBCnpi CyAoDkGALbdWTbqON8AKYl EI9jnsysNCxeVEdyMFCvay X7JDEixKVpH5AqFWCjCG5c xvhtLQT4KChsSFAzIYT4Iy ZyCOMhn9Qrpos2OuVbko9v mw23ILR9f0VcjSsmUYN9NK M7EuFbGw4mqDYiPXNuKC9w QfLgeYOcDTIpqg61oNndWA bwKAK9CIBranSpj0Umw6ur CrHttfUoF3xkK5DrPXUpMW DsAVXvJyJyfmIrq9Dwx2Op wOEzoXc0n0bwJPMlDDZlgG onb5baVTP8CREyfWDlF4la hG4lCOCtJR4ktjzry9wlAP sxVAloRDLqhUX8tvS2IFXo qEVoZ2EawV8jTQHcZVzkQX Rgljf6EpVmKq9yhCKbdVvs MFxzYmtwYWdlXHBnbmNvbn RccGduZGVjXHBsYWluXHBs YWluXGYwXGZzMjRccWxcbG FuZzEwMzNcaGljaFxmMVxk YuCbFNIfXUtaE8exXrHxHd XlIhh0CTYfuDXfEYLhReo6 KEAugTWbJGSVpSigfH4dEX SyqAhwyW8npFQ7LZElplRr nPONyC0lOFYJaC6pLoM9Et CaEzJ8RNw4CxSUKHZefd49 COMMENT (test code = t5xwbLBcABOhpHQ5LjYxJY 8618) Zkq8zch5EluIQanROcNZhx yUCwhxPrko24oDX2cV08BE 0gFMCaUnE5QPOiieP6Etj7 ZYWnCLClnYFdA452w5aqu5 clstHaoDA4XZFwGYSwU6Tv IP2xXAPlzBEyO99yqQMlHG Z6CFPyADFzsEBcZKPjUSU4 BHTkoSCzR6viHRMuSC3feg leFPwwWWarOOUamSH2KMTg uVAcU6HlJTQkCZqjPNFfnj p1BuQySn6wyEZfyPpbINfx YXJkXHBsYWluXGZzMjBcY2 KtNA8RYCfqXAX1iVrjNJhp I0OifBVmcQ6isUYzsfFeWr 5yQQSWTVY5ZCLcOTEpYKPq OKTtZALzycDpB68xgZJ4fX IlLCP0ePWuJZ57xGlxlwhi kyEjbvklgS2eHVUwzQsqca QjqVGgXPopp5Fixuhdx5Ht jDLhwLSdsNElZJDplH9lPU HuHFYyqoEila3yTVulPHIj xW6yJKE9rZ6tk1i3JQQjMu 1jMMp9GnU9HTJabvO0tGY2 ZWQuXHBhcn0= CPT Code(s) (test code o3vduDWfOFEzuYF4ShXlVD = 3357) Kng6rmn3HmuFUrmADlBTwv vZQjlhGloi26zFV4kD56UW 9uVEUcPwZ6OOFtgyN9Pmc7 NJHmOAEfzPWiQ555z5xhh1 lznuMsfYM7kXesKHGbmwuv ZbP1BFyzRJQuxmjmOJn3PF adIAZxxRS0UNTxoVHwP6Yy ALLlCM5xwjz5BXN0HEkbGN SrEvO6WDSdjIGyKDXuwWfa RBlmy675RRG5OiSiCCZayw CriMiyhT5xZdEeRCN4QSGt QKctTTroRCOzBNg7GmJuAT Bhcn0= CLINICAL DATA (test i2inqFCvGWDfeNJ0ZoUdXI code = 3355) Pmk7mho5FmcPRdvDYhLWxy pRUngxPlli33sFW5rI61OT 3aFIOzZnK7JBLyjpX7Aga6 MPFeFFQtgRQtP502j7wbz2 ppveIsqBC9UTRtVZNnJ3Hc EC0hMCQmkSVoJ27tpKFoJQ S9MTIjCXRkuHFpQABvRYK1 OVVwxFYoO0ckSNAnXR2mfe alDQycVTqxCDXtrIC1YGRk sHVtJ3CeAUPqKAzrNDSmox w1XjCdJf4szPCmmOhoSPif YXJkXHBsYWluXGZzMjAgUm lnaHQgcGxldXJhbCBlZmZ1 d2uyzjhnxSzedG1qyICjK9 GfHG6gZXHaBR5xSOcKTMkz ilAwbrQoDaPclYBef4Xpmu mnzm8qaTSreNPbhSAne3Gt cxvrnt3RAYt+SZ6vSMmPTg GatvY2IZzfNFqQPRWjejkg ZVS3JTAlpeq0c14aFHkdO3 MpY6zcf47wWREgqLX9BSH7 E7qtegBlMoGJHHJYZRpflA jeM9FwYx9lvFW8o2dsQCl2 YWJccGFyfQ== SPECIMEN SOURCE (test d0goqVYxODVwtQV4IkLxVK code = 3377) Ooq8xao7XrbNXdzAUtOSnt cDUaluJxlx60yJR4mV76ZV 7pALNcGgT3ODGdtvT3Pss1 DFMqDVJtwXQiL883j9nek4 ccmkAgbMV9fHylIOKqxoat ZeS3GQcjPMPdpfgrSMc0GK inAFZpmFQ7RHIxaNFvB6Hg YAXoNL1rspw2NYA7TBihJL DlYzX2TYEibOVtEWXtyGcd PYdqg760PHZ3UtGmXMNrig BssFgtoU8fRhCvPXFGGDhR VCBQTEVVUkFMIEZMVUlEXH Bhcn0= GROSS DESCRIPTION (test f3qilULkQYMqcBFDNCOzL4 code = 2966918589) qhniIySBKqvCUmJ6Ddpvni NWtkYW2xZA5bbVnwvXCpeK JzVQ4FLYBoBnDoOEXvhLBp ysElZzQcTHZxcZCiwDW2ZU FpIH6uvnprFKlsZKhaULSc xnZ5KTWjzSKuV4QuDRKzPJ 9uddtzIPT6FCounI1rmaAO ZvopOc0ceLRabWglFbZkWa NoYXJzZXQwXGZuaWwgQXJp JOq0kL1UQjjvHDC6DTTQGs khWWGtDD6Fy6cxSSBzvDZb REB6NAovqLKmHMDiBQXrYC u0DPEyRArrzUYiBG4baOzi JrbxiGoge9MhzSCzOTzmLV ObNUEjZWadZAPsVZ9ZPmIk GNEpQNK2PTRrGNk8FNw1RU 5LOmXcOAGoGMU9Bkp1FJPb KQl3WChvTZ4GAYB5JKU3Rp GhXNU7ZECkVFNuJKSjMxMw XGYgQXJpYWwgXFxmbCBcXG 9sqXqbxJXaaqRCKpSReUG7 ceZpPOWOvYgemW1ncMTvCM 0VJDLkxUEABNM3LK3lHJMN ClxsdHJwYXJcbGluMFxyaW 7fRM9NTNx6wpOnKMMfWgQh RcThRMv8AURmZlWpSX2ejg AgvqEaC0CkUcx2nEI5GPKq FZQigcUwPKFzC6g1i4HtqL 6uLBLzWCUkTNksGSXxf2Jh QGLvSRUfARQyxqY8wTDnD7 XtcTFirG2cgbE9LSC3s2Fh RZE8sF7zsOJqHSVpHJKqkF iriYz9TRD9zmZebHJsVZJy ERXdQDGrSdbgy1GwQ1RtzA MlAF2mLOy3SZsshqMqqRfk AYJvnlBvx1RiOBotpjYikB M2OjQzXPYkNX2uVRZ8HwG2 FrMvTwWuPSprvFewiO8iGF YgL27gj0SFo2OhIZVtKTmr p7kfbOton2YzuXLlSUjhTC RyrGNrFIbtqQ7gIuNfy7kr fZk9AHpxbhO0OLRigt7SQg zjbY9bWmYax0kpjNf3CIBS OdyzfzZ1j1xuvXyub3MkfM VfBA5MXx8= MICROSCOPIC DESCRIPTION f6mraGBuQKIdkMR7ReIaVW (test code = 3371) Bpe3kuc6KjoOMguWJzUOlj xBUqypBbdg18oSE9fX17SM 6pXVFcEsX9ZDXvwlD2Hry4 SDEhPXWarTRdM067y2iqk0 exreAkdFZ4uNgoILCzgqcx WnE0WYcpRIHkyscaIOv8AH lzYTTglDL3MNXehTFiG6Ci HCFwOB5tlfs4KSY4AQmyUR LvPlC7GCEynEIlKMRmyCtu YKhzm941ZLN8SyFuGDQhza PlxSdxlH3dJxEfJNEZIDZp v3NiNMXhHNelMJC6 STATEMENT OF ADEQUACY Satisfactory (test code = 2757) SPECIAL STUDIES (test e5kfbKKaYYUtv7dmOMLpxJ code = 3376) FuZzEwMzNcZnRuYmpcdWMx FNwtibGrULosw0VvO5RoAz AwMFxhbnNpXGRlZmxhbmcx RTYkGAR4geZmPMWcYMqcJO LrUXygOo6psYXuxAatLxId PTMqw3tjvgPIunnzvTh3l6 ofVZLfTcT2vCVuBRgdK5sn opKrnFDiC5UuhDYcqFf3l1 puRlYrMrF1pUNuOYduR6ky rmNvqGQjLTKfQMw0jN39FA JkxV5mpUNkWMsikuQiSrU0 DLpbXBPyVjF9DAGqeFKmAJ GnB5crEHSwHBqeEFSwYNan kRTlCPA6uLdxg5Q1rJPpoP OkuPlvNxLaRoImXhSZs3Jp JGb7mUpsV8YpNIJwFeS3hS QgUGFyYWdyYXBoIEZvbnQ7 hNgvbuWcy09dgEUeWSHgBZ XjCaQckRetBJKxLYXIu0Sp bAhfMEH6vMj2hJrlTofaZI W1Cfh5XW6gxd43wtl9cXqo PRPwynbiFkU8ERreHHZikw dwPHa2GYrbQMVbuNE6MTRi yWRxK1AaYXBgAH8comw2AR T9FZqyBOZkYkF6MUAlrZZv ESFfbRieJDbsv928NTN0Au SqXE3kR8Aix7H5cK9pgSLy RGHkjXHhPlFiSEOymm8erQ GaFZbqt6JjLNU4jmN5cSTk nYNrBKLiCA34Tesjc4DmRs fdo7CiR28uqMT3GLpse1oo FP8xPhK4niLiBZeqm4bdiP 7yGjO0ZWxyAJ7nSK4nGWSa rI4oglqeGWXvYbQisgkqSB AukOomfqTtFn7urCqtZPY5 MUncD7otqL9nBmH5KVmyH6 ztjZ0wMLc8GYxukKN2AYUm kD5tRG8fdhrix9vqHWzhDB ywEBZiiyG8fdS0DRGpaBTe Q8UxtN4uROJlBV2ieanqn3 fhJTA4NVjeQMMcDSB6YdUk QXEsq2Ouawy5LnJrh7PgnB FlZXygK49mg147BHBjowKc N5gveBCmnutjdZTpwnrtIU havqP6GMAiUKLmUAfmJFVg XGZzMjJcbGFuZzEwMzNcaG ljaFxmMVxkYmNoXGYxXGxv G4xnOdVvF1WjELSxYwHlZC miGSqyuCTztHDwyNO6iK9w EO5hLVCmsFOhZ7LuTDRdnm QgrLQwOQJ6aJIcsPAnUQ9c ZFhljKAvs7pld7EkO8opmI tiqUP8VZ4yQEYbEGWyXTsc z6UltB9cSscxxEPjfkrtKQ xmczIyXGxhbmcxMDMzXGhp G0anKsOkUKAoqYwaDHzki8 NoXGYxXGNmMlxmczIyXGx0 cmNoXHBhclxwYXJccGxhaW 9lSiEqKvXkZfdyIU0hKBSb W1uclWUiOGStPBOzL2xyVo MylN1pkRmsKPezJiSgAeQg EsYBw916ds1hHYIoiOEtgc BAtPOefR4pVVhyCGtdKIfq eCFnDRdul7rzBPNwl3d1sI ZsCVLlhxAdb4rjHYisrsCz VJFvlOZxvQHpGWIfs24wXV falEmtnVbhXAWmq8PboNfl b1SkAjZnUOcly9YcZ42reM JvbCBzbGlkZXMgcnVuIGFs k56zq9hzEMGlOfB3gJEjmC O2vTLriYAzx5FblJmbZAEf i5wgRRIbvg4kfyqqkFDat4 CmnV7epaogANnyiCSqbhIt VQRtv7c7yMJvTOUwTABfAC lnnXy5WHRzr170kx6wrxY3 kQDcSRB8WHmwLULwJGCqsw UgZXZhbHVhdGVkXHBsYWlu XGYxXGZzMjJcbGFuZzEwMz NcaGljaFxmMVxkYmNoXGYx YGfeY4vqSbQeM8TeHOKtVa PlyHSeX4sluCQkTAWyUYvx XGYxXGZzMjJcbGFuZzEwMz NcaGljaFxmMVxkYmNoXGYx PKyfC3wnEdHdD7LyVRGiUf IgIFxwbGFpblxmMVxmczIy YEtsmutlMDQtECbmS0ogEi GqLJXvnZmqDIuyc1AzHIZl MCJgMctvosJfOHv4gnWvUG BhclxwbGFpblxmMVxmczIy XOsocgeiFKXrUGmyO8uyQe TkWUYlfLxyYIfea5OrTJAg XGNmMlxmczIyIEltbXVub2 eip3OnE3lfhYukvWW6KFMf V1slbSOyaBG1XZM6rU0rHO fgxwScCFAob5RnRQGaDHYd UiE6gB1kMED2OeQYvObgVI BsYWluXGYxXGZzMjJcbGFu ZzEwMzNcaGljaFxmMVxkYm QlVEWgNHdaW2uwExEpM0Vh OQRnBgIsySgdLCpfQQe3Qn xwbGFpblxmMVxmczIyXGxh mterRGXoXFmpR2wbVwWxNC JqdHgaPAiom8NgORPbAQEf MlxmczIyIHMgTWVkaWNhbC CKQR16XMJuUDHmiDhsxW3e rMXSIBEnolE0d1Z4ZMyhDZ MsNPw5EKsfycNzFOPaiT2g CECbPQ0bXIm3lwGaWWZrp3 WpZG4rSXJsePIaYOT7BUMx o3LvO8Cnf7JdNSCgHRNwns 3bnaZmXjHXoMRyYTXcrn93 JJXqQY3nG9asFUNoUTPkot JwaLMze9PxIVTuyLJ8iEMx VY5FVpITq03eDJLjMLVTyv AaPYKsxHcpaJA7cuC2wY0m LiBUaGUgRkRBIGhhcyBkZX Jdqn0eqjJrXLRbYSZtf4At eYTmwVDqvzEjG0Qty3DmWN Cffd67YOkynKTmvm13CM5o E1Lye0IowS0kOYbiKQMdl8 ClzDRhgPEuWGVej6YmU9hh rowbERsdkOXljW4rCHEeOA n5TJYlc0UuUQJva9BtIyDo dmFqLATjDLBgQMOwdW35VI Z8mCrjmWxbpeXhKB7jJGKr nzKdIXWrSCQwnW7eNCjkyw RyUISmnbF9a7F1SUnjNNVd tkNzPaepZGD4aaGsgpC5lY CyX4xiotaaZIeeLCAit4Hg yB5koZVKxTOgy3ZbiOQloV OTiPLtOI3zikFeTP9iNVI6 ODggKENMSUEtODgpIGFzIH W8ACnjPxccJSN8jrXiWSFr l5WaMNavY4jbT23mfWuaiJ s3fDAosMixfSAtaIVaLWXb rhB2s0N3MXStv2ZqhawyPS BsYWluXGYyXGZzMjJcbGFu ZzEwMzNcaGljaFxmMlxkYm WiJCWsVFwbA1flIgJmIiSn TpbkAMY4bB== Gross assessment was [facility] performed at ([facility], = 2777) Department of Pathology, [address] [place] [address], Technical component was [facility] performed at ([facility], = 2778) Department of Pathology, [address] [place] [id number], Professional component [facility] was performed at ([facility], code = 2779) Department of Pathology, [address] [place], [place] [id number], [facility] Test Item Value Reference Range Interpretation Comments Case Report (test code Medical Cytology = 104) Report Case: [id number] Authorizing Provider: Jackie Villalta, Collected: 06/29/2022 11:01 AM PA-C Ordering Location: [facility] Radiology Ultrasound Received: 06/29/2022 02:13 PM Pathologist: Saskia Muir MD Specimen: Pleural, Right DIAGNOSIS (test code = [id number] 3220) FuZzEwMzNcZnRuYmpcdWMx IHtccnRmMVxlcGljOTYwMl tqyfNkKVXxlRSgY0Nnpraq IScuFK0rDP2feVktmTLakI LiRDZpPjIjh9ibp690qFKa i1pkIQTDmolnlOy6oSrpF7 7ne7M2FadgO7bgSQQvNJby ZWVuMFxibHVlMDtccmVkMj F3VJlgZGXqNbG1EAHooFPl TPE8nIacAZZajftuCkJ1TA hcQPUwvgquQLg7USusMVXk nIU2MTGecZZrO2GzLTPoDT 1fbwe1LLI7SGgjZRYvTjH4 NDBcaGVhZGVyeTcyMFxmb2 84XJJ4AeElPNIkqzTvbOeo lY4yQsFjUUBYMRfEZGDNZD VVUkFMIEZMVUlEIChDWVRP F3FKQtJbBN1YVLZICSrpIh eWB2brCubzhX6pSAJcER2b VG1GFYHDFdVaCh0KDZ1GRZ mHOtBIH5jcIQGpagSvZLOv TYasBhCxS6piReIylYWjYI PDUCUOJZGBYfAQHXOEDA8L TUEsIENPTVBBVElCTEUgV0 cRWCYQDIzXQBRBIT3tS2SP U7wCGNhLGCCcT17UULPOUH uedOTlfKmmaoFxXJtms2Az UQawOSVfBH4teMbqZKUbNY 6dDJRmJ9zqgA0ytur6FcNo DBCnTtH4ATYpzoU9Spf2IJ MzOFhqu0wmo6QhMNIoPOi0 sPxrFmSuKORba1ltaaVnHa EpSBMcREOvQBYsjNYjR899 p1nkg2duonWgwJG2WSKfII F9GIeafmCugyZ1KCtmtXPn GyZ0BLnjhgCiPQhdriHnif YyEav0VQPeY084VAU8lGbl s3qlTDO6QDPnREMeZqObWl 9izVTaV398MQDcECWCGSXs vPq5KUQpqxYbjpEvdMPTb9 38F030i8arDGIhteRltUcO chgju2euV379AZWmnFThna XtPzLuTNAbfBZqdDZ9MXAv JK9qlijiDSdoIXmoYENchb L3BMZomSOgE5LiLPVrQO7z yuiwJVI1MLwzIKZuHXB2Jy RyGIYif7Cnaua8KqGlfs3f do96MVP5t2RvsFkxZOL5SX E5BgYqOb5rbDKaYHRwYN7w RaPcrIYwUYJqkn38oVafTF ycWBU8ZURtruNsc9Rrv5zq UtHrvcZpB6wmB7SfMUTsET PqOXZgIoSjenCnz9Qye9Bb iQKhpSt6g2jmAKQeSJVwnT sqg8vzXAN9EQQrfVXvP7pr rA6kZRWoLG6ayusdj5zfSZ ryVKhkTSAqvAQ2lzV8SVHp vLZwK6KcnP2nXVDfYXqwIS Hdthl7ZuJtMd2lcNOhwOmn MFxzYmtwYWdlXHBnbmNvbn RccGduZGVjXHBsYWluXHBs YWluXGYwXGZzMjRccWxcbG FuZzEwMzNcaGljaFxmMVxk YjIaMAHyLZztX7mbApGdFv BlTdk4BBVhdSShHTHxLiy4 FKFdeNHnYECBzNbnzG9uJZ UtuFtdvL4nvHD8AUYkmzGx yLCNnS1jAAIVaW7fDzC6Ci AlWsW8AKu2NvNFHLCszf19 COMMENT (test code = v4nbqSJuBOHrsNC2ZlUeBL 3358) Mpk3rva2GnhYEbfCTfYTad iOPjsoEwms18bNK0vZ24PS 1mPOGxRcQ8GJLjobO7Gor7 DTFuPYHzmJFpN662w0ram5 bimeXqjXB4FLUkSYYcU8Mo JD3aESCbgWKyQ94xbVVrSJ V9GKNeEFUvmLNtKQRmFZV5 ILNxxZXjF7kkJYPgBM4agg emZSepLOqbEHJywNW9TLFt qDZlW2XuQHRnVAneZXWddd k6TvXsQi2wrERcjReuDThx YXJkXHBsYWluXGZzMjBcY2 IyCH8ONNitNLF8aDvmFLla L9AvoAXcvC9vmYNbuvGlFl 9cQJWGGYF3HZFkAANaPKAn QYMfGFDkptEtF16vbXU5rS LjYZZ9dNQiVG32tIbiufwq xcNtqutwuS6dVGEqfPzndq OmcHBvTVgrg1Ulxsbvn8Jv aTDhmCQcuIAqFNUnjL6sUS WvSTUwpxGdca1oFJcqENHk jO7uZFI1nR1ar3e5EHYxGy 6uLGa5GlO0MMNoswL5zHA9 ZWQuXHBhcn0= CPT Code(s) (test code e2djtJDjCHMlgHW6CrOqEP = 3351) Cfa2lrg6MtuXKxzTUmWWln vPNvzdIpxl11oKL5dO54FX 4tYQXgNtN6BHQxwwK3Ekx7 NISrCQRvdASeQ507w0gza9 ovpkHmqYU8bKojFSSfdazr SmA4PJcuWYAfziooQNb6FB iqFQEsyXQ2DWBsqBDmB0Ln OTErZF8occs4GHA0ODpkZB JkUjL6KITqvZVhWSGlaDpw ZAljx423XAU7NzPaCVMdai PssClkzU1mOyEzXJX2SVDm LYqyOEetSEZrUYq9DqJiJA Bhcn0= CLINICAL DATA (test q9tjbHKzLEIrzJJ2ZpVsPV code = 3355) Sae0hdo1TkoNQgqNKbPFyc gTGlaxEgjj84tIU0rD49PJ 9sAWUuRgQ9QDTubiJ3Osa9 QFQqPUJcgDVxV705z9qdl0 ofpyFflJH2EVFmGPOuC6Fz VV7eZZNhbAMtN38eyTJuYX L0CFXeXIPynAAjICRtMSF9 UDRmiCNmB2nbSGDdVF6twd vsUFwmBIwhFZLblMD1PIVv qVRjI5PeYUEfBZnkOFCjbn l7PoNvYg0diJHstBghQNrj YXJkXHBsYWluXGZzMjAgUm lnaHQgcGxldXJhbCBlZmZ1 g1ocyrfiwHygrT5nhTExX7 HeWX3dUMFuLC4fTIlBYUdw vsXbecCeQaWupEElf4Xopm gnmb4vdTQfhEQsnLDri6Ax iybcdb4DQUm+MM1nCXtIWu LtyrQ0AJojZKuLBGCaurbn NDG7MJFfjvo2n93jKVpoL1 YhO3imx97uOUZikEV7ZKK4 J8awqbPfNaZAGKPOVSbbjT hoK2CiYi3eiKK1x3zjRBy7 YWJccGFyfQ== SPECIMEN SOURCE (test d9avgAPjOZEbfHF5GnQjFD code = 3377) Zip2ffq0SggLBqiZAnTRfu iKLbdgUnli14tOW0kE50XI 8jSIRnHmZ5LVDcadG6Lwt6 HIRmXNBjxLQcT884y6pkb2 voneTkxKP4nAsmGJNefpxb PpL4GIklAPZothgaGWf1NS ymRHGknTR7AWYpqNPmM4On OVUwCT2rhwo1KOG9FXnkQQ AvWaM9IKRrnGThQJKbtZqk CEqxq372HML8IvJfJUHdqh GvvWhruR4yKjTzMATLWQtY VCBQTEVVUkFMIEZMVUlEXH Bhcn0= GROSS DESCRIPTION (test m1ijfIIqQOFqvOCBMJCwU5 code = 9320247932) yfjbYqSUJzhGXhD7Hxcblo MUtzYY9gVG2asJqidMVpqX SxJS6AAFRnPrOvQSBpvTRg mxMzWuIqDPKgjWCnwGX3NT AoSV7bprylJCyoUHnzVFIj thX7VCGmqKHpM2ScXHLyJK 8ziroiFSA1YDvxkX2jiwAU AimtMm7bjQTdtRbcZtOxHa NoYXJzZXQwXGZuaWwgQXJp OLn4uZ0UZvorXEW6MIVDMw hxYYDcYY8Ep3ysMRTesFXt BKJ8AQwnbOWmYRQlPHSdQV e2WOKiBXzlvXQvPY8qhPbv HmarqYlnk4BomHGuYEykGH KcEEEvHAffLILdMJ2MKqDp MXKyUMC5ZGKxGOl1SEp3TV 4LFxCrZDQjABS1Kap2EGIw UAm8TWekFS3SIZP3NZQ9Ap PhSKH2NQUdWICpQWZwTyUj XGYgQXJpYWwgXFxmbCBcXG 6hhIwfdLQdrjBGZmXZgLU8 ptKpVSUPcGrfqK3daBXqKH 2JSCMktPBKTSN5BC7gJQVS ClxsdHJwYXJcbGluMFxyaW 6iSU0UDEs7taUaJTLcOjOu WuEySHd7PLQjJpThFM4kzz UuewSaX5YxBrs9iRC3STVb BCYpckIwBWLiF7y8o2DilW 2dBZKpDLAtXJtdMLOvp9Uj CWYjJGZfKLLuaaX3xHNsO2 AdjDRbyS6sqqZ5OXR6k4Vh ZLF0uT3aaVYdGVRiRNGofR wtsAe9TDY2kjKpoLGxJNIv XWOoBOQdVocma0VxV1CvvS MnHX2gACc8BHtnksRxsQca ORVmemOsg4CfKEfwjuZzzO D1CcOrCGXeLZ5kDIK3PxY1 SbEbOySrTJqrdNltdZ5mHW SxC34ae9GUy5FvXAMkJVyu b0btdXlvr2LymYXqOLwzBP VwkMPaCNvpaJ1fMgMdz3yb vVz0HAmdvtV6PUWqxq2KGx zyhP7cVjGlh1mztKx8OSXT ZveyyhV2i3zlaLssr5OrhX VeDH6PWq3= MICROSCOPIC DESCRIPTION y0zulCSfYRIeoTM1RoCeLI (test code = 3371) Gjv3wys2XbnPFmhXAaXTgr cRMsuxUxnc88pXR8oF01OH 8oQNDkZtU0JZIjiuM3Alg6 VCNgJZCbkAEwH833s6bpm4 tewwSuxGQ2bOkgKMAmxszr ObB1YQxzRQLmwvbvILr5VD diOCVxcEJ0PSApuFGyK8Iy HFVmKG8cnep8CQI3LIbcRN RaOvM5FZFkoXVjTWJbcOin CBclj732VWD1OcKpHQMcds MmpVdecX0mDeCbYBFNCHVj a1IaVIJwETpyJVX4 STATEMENT OF ADEQUACY Satisfactory (test code = 2757) SPECIAL STUDIES (test z0vszAKtETUzk1fpUCMceX code = 3376) FuZzEwMzNcZnRuYmpcdWMx QNrzxyQeJYwjj8DqN4HlGk AwMFxhbnNpXGRlZmxhbmcx KYApRQB5hkFvPSZxJDzsOE BhPGlfDa3luDDgeUmtGhKw RBLpu4dapbOVshrfiSp0s3 iaCXVdEuF1xCTmVNfyO5pp xcVtlCApT9QjqJMirLf1g9 hsEuKgPvM5gAYzBBbgZ2ch ghYiaQBcLRNgTHz2jR86YP JrnU1qiVQdZAfmmaPrWpD9 NKlhHIEpJnB5PJNglVTeLF WuT9gdPQVwLRjuZZPpPXku dBPrNBA9yGalq4S2uIIfzJ PbiStlDdByJbXeEwDZz7Nj XHu1lAgvT9AbLNVmCuM7oU QgUGFyYWdyYXBoIEZvbnQ7 lFtmbqCje33iiOKtEZRxWM QdOlBnsRdbZMHbGJSMw1Si eZoaPBS6uOk9hOmqQilnAE L0Eex0ET1cjf16icf8kLez POQpciygXiI3TXnxVENtji eaIVy7ZHotYHEycPO5KPMf cCTjU2CyQSYeAJ6ejce0ZL V8CPxbNCPkPrE8PPAkhTHf NQYgsTzjZEtdo884KVI7In KfBG0mE3Zin7K5lC6wcIWn ZXJciKZoRhOtNCZrlj4msC HwKWsif9OzXGT2qsE8lUEq mZXeRJOdHD79Wlnuh2EuPo mob0XwH87piML8MZaha8ji EQ1ePhZ2raPdYFakh1wdtH 1fHbL9AXqwVQ7pFU8sOFEb bO5sovetMITbMsXoiaxvHB WncHoevtGpYu2kcExrYEY3 OSogO4drsE0fJcT0HLyhQ3 ystE4rBZf6MUzcqFX4QVGl tE5uAE6bxcpzc8cjXNcvOS ciTJBvkgD0ciD3YYWojMRa H3JdjQ4pGOBzIZ2ospija3 xlPUP4IMumPEVgWIM2FhRv RJYjt2Xqzwv4HnUxp7KvbC HwZEygJ41pc499DWAdyoWn Y0qheFJywctgsMVvtovfRA nmryJ5NZMwAAJqIYfnYBJw XGZzMjJcbGFuZzEwMzNcaG ljaFxmMVxkYmNoXGYxXGxv C3tmNmLeK9FhXAAwVpAaDX eaVVylqKHqkXCfrJE5zC6s EC8rMNZpbBPzD4GhESVebn ZbnKKeSRS6gJWaxQCvRV5v VSxmbYUyp3uru0FvT5yorV kwjMZ4AN0bYKRxHRUoDBbo f5DxeD4oKfkkvXRmlzclZO xmczIyXGxhbmcxMDMzXGhp D5pbXaPcRJZriIxwGJoai2 NoXGYxXGNmMlxmczIyXGx0 cmNoXHBhclxwYXJccGxhaW 7cNgDwCfBqPnxjAB8gFJUf U5dlkTXqUQWlOGRnU7beYv FyyD6hdGfjHBsnUzXkTkOn PmBIp789yz1sDJSlqDOsfj PHlVZhkR3dPGdjNHbhKZan lRRpAZudk6fmUSBud1v3oW GpQWMwweGwf0faTTheqrTn FXLsoOPepLTgAKWdq63jAI jcePsrtCfaLTHfu6GlvHip l8XrOwUfNQhej4EkQ21gtN JvbCBzbGlkZXMgcnVuIGFs d81jl1egOJYhAzM4tIEliS U6cUBdqWEsi4RqyFqzGSKv z1ciKHEoke1yoijrlWXaj4 PqqK0nniuzZYmquFRubqTw RFOvk1z3vFJiVSKgLEYhQZ faaUr5GKOnl498om2zvyJ1 mJHbYUN1EUtcGUNvOOZszi UgZXZhbHVhdGVkXHBsYWlu XGYxXGZzMjJcbGFuZzEwMz NcaGljaFxmMVxkYmNoXGYx RJcqD8cvWbUgA7NuJOScKv GvmDJmU6afhYXgYBGyYDph XGYxXGZzMjJcbGFuZzEwMz NcaGljaFxmMVxkYmNoXGYx RDizF0sjBnKoK2VeBKZvPj IgIFxwbGFpblxmMVxmczIy YRmcpqarAWVwSSroH1nxQi BjEWHliVqfFOrgk8MpLQUo FFNxLvslmoXjYGv0rlHiPR BhclxwbGFpblxmMVxmczIy OAwufknrEJCwAIgaU8bhTx LiPMBtoKmvPElnp2QcMPGl XGNmMlxmczIyIEltbXVub2 niw0XzJ5trzRnurVC0MXSf P9etvLFuyQL2TSZ2iI0zXR rqpbAjSWFla7DfTTGwDSEv FtO5yW6bFZX8YyFVeTzxHY BsYWluXGYxXGZzMjJcbGFu ZzEwMzNcaGljaFxmMVxkYm MsHYCwKEhiB7mxPfItO5Pf ZSHiXyXpcMgsZFglJTl6Fx xwbGFpblxmMVxmczIyXGxh flwqAUDxTLodM2rpFrFkRH FnuZtzZPzsc7YsANRbULZy MlxmczIyIHMgTWVkaWNhbC UKLL37IBErGKWrfKvmfK4t aJUJTPUmfrY3x1H8AAbzBU JcAQe1FKkanfDsYVBwzB0v OPAhHO8dETk2mnPiPUOmt2 NlPC8aMQBalIBmZKS2OIJx l3AzA2Bve3LzGYAsDJVlwd 4qxmPeFiTMmWIjJRWtbp86 USXbDH4tO6ypVMNtUTUhyf AhdDUru3LgCNWayWL3rSBh HV3CMbHKo76rHXBmSFYZby EoQQAfkYudbPN4jqF5fK5p LiBUaGUgRkRBIGhhcyBkZX Rzsy3vxjGzFFAyKLQkz3Gh nJUwaXKhrbHpP7Wck8OcGE Qgok20QRcwkIZtci91MI8w M0Gbf1NvsC9dAYatWMGmy0 JwvCTnfMCiWXFbb2GuU5jj kwxnZZblySKmkI3oYTUpIB g3BTXvw8ChOJSik9UcGqSb tdHsTVAmKUMiOXGkwE43WG A4hIlqnJhznbDsNP2zGIWv fmAmDGMtKQPdpX8vURjwil HgMXEholL0j5S9NBswGAFc vlEjMdflDNM4ltOilpZ5jN WgR2wkmiwaDDjfILZcu6Ho xG1jhDZNqAPzo8HzySOwrK GLzKHlER6sdpHzRX2zJQY4 ODggKENMSUEtODgpIGFzIH M6PSeuOwolVHE4npLzZTWj c2HnXDgsY3ajG39xhBrkxF y8cORffKryjRTkbRMtYJNj nzP4k4B4CJMhf2KtxhlhLZ BsYWluXGYyXGZzMjJcbGFu ZzEwMzNcaGljaFxmMlxkYm LuTAWcUXxrT7fkOcSoOkUe OniaUOQ2fK== Gross assessment was [facility] performed at (test code [facility], = 2777) Department of Pathology, [address] [place] [id number], Technical component was [facility] performed at (test code [facility], = 2778) Department of Pathology, [address] [place] [id number], Professional component [facility] was performed at ([facility], code = 2779) Department of Pathology, [address] [place] [address], [facility] Test Item Value Reference Range Interpretation Comments Case Report (test code [facility] = 104) Report Case: [id number] Authorizing Provider: Jackie Villalta, Collected: 06/29/2022 11:01 AM PA-C Ordering Location: [facility] Radiology Ultrasound Received: 06/29/2022 02:13 PM Pathologist: Saskia Muir MD Specimen: Pleural, Right DIAGNOSIS (test code = [id number] 3220) FuZzEwMzNcZnRuYmpcdWMx IHtccnRmMVxlcGljOTYwMl gpwwMaFYPzsGPaC4Mgxfxj DTqxDX7pOO8yrMbmfUGmfJ BcVAHhKmKmq1tem946gXCq a8wmCCGBxixrfYn5iWqiS0 3av7Q1TpdfE9twJCTpOAsy ZWVuMFxibHVlMDtccmVkMj F0SJmzDVZxXcS7AISrrXEp GXN2mQljSFDhiddiSmC2ZE zyKRSttlzeJBn2HVsxWCSl wZW2LYFerEHoW9AfEOAcOZ 3ivlk2UEX6MNgsBIMiBtM7 NDBcaGVhZGVyeTcyMFxmb2 32YSG5HeBeSPTzekVtnJxz kO5wGtLuPRFRVYgFRGQJWJ VVUkFMIEZMVUlEIChDWVRP F9RLPbHoNU3MYZKNFJrbBa rCC8onPdljlF7pZFSkJT5h JW3ZBNDNWwDfBz9WNE3LAZ kRChGPV7oaPPHhmyEpMWHb QItwAeLiA4djEwFjmQAdVR MJDBQQBCKETvLDQLUUNW4U TUEsIENPTVBBVElCTEUgV0 uDQIXAVVbJGKJGLY4lM4MO W1yFDLuOIBByT18WEUDZDQ egcIWvaHzzgnSsPBdkd6Dk BXslSELjSV1afKphOTNcLD 5kCZPeI6ezuU3vnjg6YjEb TOFrMkG0JBNfsvJ6Btr4QK GqPZxux7mdz2IpOIWbIEg0 mZiiOoFhXNXxz0oiztJnXz JtSWUdBBNuEPCppCLxD633 z5pbe0jnlaHlxBO2JSJnQM N7RRqcheCgpyZ1PWlkeSIt QsK2CMdunuWjIGgnfhYqlq XlTwl1BUWdB006OJR3vQls q6icUAB0TRZlFNUfOsIcZz 8wmBHeN179WSAcQPGRYDCg uUl5OKZehsSzoyRxuBSAf9 69Z432a6wzMODuddTspEaI beiim6fkL677AKUcjMQacl QhCvCnGZOdjYQclAX3BBVa NU1tvmgsZVbxEAypUBYwee F2ZLAvwNOkF9NqPPBjTB4n xdmiRPN7AZbnZTRbHIC9Hp IxTUOft9Grwnx8DoOvyl8l rq15DBO3b9CmrZbwZLA9DL W7QdAbPa3mvSEbRJFvBV0n AtEejAUnSSSgmt45kRitAN ucQOT2QPBxmuVaz4Vur8nk BzYvdnMpK4irQ9OrPPPqJN JuMHXsZoBdofIha9Vfp2Ws yLSizHu1m2zuVSUhQUJgmR dvh0frQAE9AJYudITiV9gc tK5dEGYeLH6gsrumk0qoNO hlMVqnOMTmbRH8inS2BSKw kGSuS9JziM3rKWRqLGnnIK Dmpkn0HvArWn8axYKysOuj MFxzYmtwYWdlXHBnbmNvbn RccGduZGVjXHBsYWluXHBs YWluXGYwXGZzMjRccWxcbG FuZzEwMzNcaGljaFxmMVxk IlCiIOOqRXasA3xrEtFmOa VtUvg5COLgcJCtZSZrZzn0 JGXciTAvWJAWpJwbwF6jBR BriLivjJ1gjAC8XNQuwrQp zRUDnS5hFJUMnG9eLcX1Pd MhIvS5RDb6SwWXRCGoxq33 COMMENT (test code = a0dwuTTpKUQoxFN2QbDiGV 6580) Ywd9edu1OorMZzzTQaREnv qBZfksNczt60ySV8fH66QB 6kSWCtZlY8NSPayeC2Ifn6 TCCwFRRvyEAiD884t2pyh7 tglxCszYO7CBJrWXUzO2Zo LG3gHIVqmVQeL12wiQJhKI B4JJUiOUWwbXFdWMQvKZR6 ITAjtMOpI2zfDLUdKG3iid xzRToxKCzrPGYbkJM0WIVe rURvQ4CcXKEmWHarSIBcxz c2AwUgGh1pxINapTliVBzm YXJkXHBsYWluXGZzMjBcY2 GkRE8UHDaeNXW1vJbeLClv J2IetMEjxN8qiLSdalSyRn 8jMSUISAY1YJUaNSWwXNVx RKEgYVAiahYtM73jzSQ3qY GwRUO4gJNqCQ82xVadxorg ggDctghajO8tSYXoySapdq ZsxNRwDEmea1Ocjaytt6Vz mEWsdMClfHLeILPazT4hVH HmUTFeguLlmk7eBFdfXHIl aC3iEAV1sI5bz3k6OBXdMw 7qDQy2YcQ1GXJtutD0jOI6 ZWQuXHBhcn0= CPT Code(s) (test code w8qdlSEqORCajOY0PyCkOL = 3357) Qey9vka5ShjGTxhICrDTzv lVVcdoLeta34eFE5iO11WJ 0zBQCkOwO5PLTujvE7Tpw8 XJWbXKAveHZaK074a4tis6 qhqjGvyFV9pFxrPUZjhdbm HqH2DRgqCDZycmdkCDe5UX eqQMUjwEX6PGZcbZKkM2Fz ZUYlCR7wbub1MZH4UKjeBD DrFlZ8IPHgcQOtVROapMxe OGaee415QNG3XkMlUMEznq SlsIywmN6xUaCxTQX1TEYt YMbhIXqwLKIbCJa4QjTeJQ Bhcn0= CLINICAL DATA (test m2dxuLIkASGwoER6RnNiLB code = 3355) Osa9tho2CogWBkwCKxXCkk xSBqrqTsyg69yBK2fF10LF 9tKOTwWjN7ETMjdfR3Bvn1 MYBbCUYbmGCmI648c3wdz7 rpiqGeoGF6GYYtGSClN3Az RM2yDQSmlTNoU61lzLKsZA W9KUOmPFBsoNSiMVXqSVM0 KFUktNGjZ5amPLTmST5rgg gwUCcmFKxeHABfhMF4ONUv hIAmA5XdUYChJTbqSGIkmv u6OzIkCa0mlZGwhFdbNTcb YXJkXHBsYWluXGZzMjAgUm lnaHQgcGxldXJhbCBlZmZ1 t5wfgoydtTnppV5hhMQkD6 DsTN9cRBSgIO1sEOqACRkz ztPrpkUbTaIfuLOgv5Tavo kgom7mxTHtzWDvpUKwe5Ud aslgba9TTVp+NV9yXIlZXj EjdcO0GKwePWcFHQYjutyy CCI5INZamdk1b87dLWsmG4 SeS9apn93oTZXetOP5FNR8 Z5eyhsMeRxQHDZGGHXdlhQ elB2ZrMl6jnCR8x6ycAPt4 YWJccGFyfQ== SPECIMEN SOURCE (test b8zzfHSbPPMrkUI6AoHqRM code = 3377) Eeu3ekj9OkaXQaoAQqFLro xUYzgeCsmf53hEY2xI17HI 7tOPLsNnF0OGQrxeY1Ool1 FYFtFZDryKKiE364f2hwk1 peamCorQS2xMwdPCBxoaez DsF2MGclTLGomreaKLy0AB ynBMSyoXA6RKEezTWrX2Vs RTSyXQ6nxsr4OPT9LGttNI JwPdA0KRYjjVNeRFKsuOcp SNwpe311LGY9DoZuJMCqkt TllFhptB2hUyCtFWDLCVjI VCBQTEVVUkFMIEZMVUlEXH Bhcn0= GROSS DESCRIPTION (test m9xxyTGgKSDqiXSVTGKyP7 code = 3489044825) gxucSpQCMfpDDnD2Mhwrnp NNirWV5dUU1vgOpapPZwbH BeFL4TCAJhBdVkDNUbjEHs muLfMxWjXJWdzONphCJ4IT ExBI9uxamdDMrtMDkiCSAm bbM4LMPzaGNkT5FpMLQcOE 1pdibdYGG0YAqyiM4fpjDS CbfiQk2qnWMgzZqsShMmRi NoYXJzZXQwXGZuaWwgQXJp NFi9fT5FZufpLHC9ETDLGs euGFPkSL6Zd1xxBDGpkAMe FYL2BJmraQGlNFKjNNFfRY u6OBYdVBjdeFTyVU9ocRba BvxemSkiv3ZajXMlOWurBJ WxIQFgQBuyCDOuXX4GYxQj LBZeCLC4FNZxCOh6NQl4YO 3RWjRqVYYsGBP2Dlt8HXKa JUp0UZmfNU9XMPO6EDS4Ri YsNEB7FIQmYEZxQKRcIpPb XGYgQXJpYWwgXFxmbCBcXG 9jiDqlyELaehIVNhCZwJD7 beOkVWLZgQlqdT8ljNQxQZ 7YXYZipBGCNDS1SA7mZZOJ ClxsdHJwYXJcbGluMFxyaW 1lMR4NWEz4jiHbLIVjWxCn FrRiSPn3ZCJlXoWqMP3hoy SjtbFtZ4YiAtg3cHK6JHPf ONVlqvRzWLPhT1i3i5GlyK 9wTNXbJOKgXEngSJEpp5Ec HOAyAQKaJYCcikZ1tUTaI0 WbyTBqcC5cwuD8UIE0y5Ss IPL1nW1yoHFcRUZrCKUueB avaTq8HAZ6aeWpjSGiVVSu YPSnTDBpGfoke5HjN9VqiE OdII8fLKv1YCzophRdoTvz CKFzlfZcw7IcAFafzrBaaN G5NkJhHBFrRT7zOAY8EnD4 BmSiFzIoMKdngPurwL2hHV WrG30mg9DCs3VnLTDxYXjg j4oyiUael1EyqWAcOXjtPG AqsOMtTZpjyR1pQtTpx1iu vRu0MIelhwT0USYavw6ROm kizI1uXmDdq2eurWv6YMSJ FrjsdoF9o5bstHsyc4CzvZ NgLG4UAp0= MICROSCOPIC DESCRIPTION n8qlnBWmXPSfoFS5OmHwMC (test code = 3371) Ths6icp7CcnINaqIMuWVct sBZodmQcgu53qMA3jW10MR 6nBXWrAfX1GEFnhfV9Emp2 RQPkTQOxzIEiU296z1cuc9 paguPztNQ9kOgkETFhobyc VuV4BWwkRYNtoxvcCFk1RS buQICqxAF7QDOuiRRbF8Wj DSZnRC5xewi0IBL4NJozXM DnNeJ3RYKrdPQjQOPpxXwo XXkje435MVF1RlSuTTMkuq QaeMrjpZ1pKoGwWIKFCWTe h8CkVWVsHFjjAPT7 STATEMENT OF ADEQUACY Satisfactory (test code = 2757) SPECIAL STUDIES (test p0supZZuKNWwm6wiSFCuaV code = 3376) FuZzEwMzNcZnRuYmpcdWMx CQgwcoQkHFxpq9YfS7GoBq AwMFxhbnNpXGRlZmxhbmcx LGTtXBO0mdRdENBpYNmkJF RcDTfqXd4skZWerTtuPmSn PDOgb9tssbBZktrgkEs6v2 koAVPsMmA0iKOsMAelT5ra qsKuhIAsK9PzxVJxyVq1h1 jhWbZnXyD6gCBlFWxaR4gg hzCijMXqCYAiSGj2hS11ZK TqxE7xhZXmEDhesqDtXpS3 QVinCFAjJcP7BLAeuORhWD PoK2oxNOJdAEgiWQOxNKbq mIKiSNJ3pPgcx4S4lUDygJ LbwZvhFdZmPlOvCaFEu6Mw TYz7gPrfH8AiAVZwOkK2gU QgUGFyYWdyYXBoIEZvbnQ7 aZczafBrs25fnNPyMKUeJA SxRtNnmKnlLYFxWRIMc2Mi pRwhPQZ4vQe1bOryZkojCT M8Ndl0FN6zfj09oej4xHrm YBFphetmZuV3JCuwPSZrpu rhBSt1PZukBPDomYR7BPFn cJVkP5GkALYbMX7xcej9IN M3PXwwNPZmXvQ4JZTxgIJn AIIxqYhbTCppb811STB7Eg LaRV4gD5Its5B5vO6arAVp QUDfhBAaXpQbYTAuqe1qyO NlHFaal6YdZQL3mlL3dGEj uCAwSIRtWQ51Mblcg6YuMv gke4JdY01upUA0JLnmk9sk VF8lIlO6mmGgOQqgh2ukuR 6jUiW9GJlsJP3qPX4oBVFa rK0rzpdkVHYoHjTwgampUA VjrBakxkVbTh1tjUgaKIB7 SPfgO6zrgU1fYeO5YKbdT1 wayG5qEHd0EFkqzAJ9MZKt pK6qTK7grmnvf6gpSOepRA zmPVSuiwN1pjY2YORobYYy D2ZjqG8hVYFhGJ9ugdayj6 ulCWR3RDdgQGZmZSZ2NpJp IHCvv2Cwxaz8BiDmb4KtcD UwZYnwP86yd874JDIpjzFp S9ugbUFmlaauiEIlugblLF zrhfI7GHRyFYGoZFasJRVi XGZzMjJcbGFuZzEwMzNcaG ljaFxmMVxkYmNoXGYxXGxv X6wdJbPnE9QxFCGkEuIvUD mqOXetaGNlnDZpzMW6vN6x FD5gJSAizCXnI7TyFYPetl FosNNuDEZ3iXRdvKMhCS7p KKqhbIPdi4pzb5KwU1mipN pmeRJ5FZ4zUBQcDYGoEObc o0JjoX3vRgmqbHVuzociIH xmczIyXGxhbmcxMDMzXGhp A6amFoPlPJPltLikOUcdc9 NoXGYxXGNmMlxmczIyXGx0 cmNoXHBhclxwYXJccGxhaW 5jJlVvRnRbQrztWI8zDBHm L9wrvAReSOPmQLKcG4miBr CuaN8hxNneSQnnJrKoPpFm ZqPJm691gg2zZDAbmANhty ECeRGgdI0fAGymVWbdLXez gMDvUTklw3ioGLPcg1r1lE VeRDEarnYwr8nvVUxeocOp ULQawUEuvVLiJUMzk81aFW ytgUskjNlkNZJll1TehIiu a7QmMwSuDHcsr1EtL61uzO JvbCBzbGlkZXMgcnVuIGFs i51tt4hdRDFxPxC0eRWooT W1gDHslBOpg4IxkVroXLQv k3rqGNQvyr4ghdwvzXDpi9 YuxZ7tuspgYKmdfKHvbeEr WDLdx1e6qSSlGORkWYDpEZ gruAw3JRZff107oj3xjlZ9 tICwJPF7LVctKEWyFFFlhj UgZXZhbHVhdGVkXHBsYWlu XGYxXGZzMjJcbGFuZzEwMz NcaGljaFxmMVxkYmNoXGYx OUqvR9qiJqMwK5GvKJCeJp QobFZjH5wjvIZkTDCkEHmq XGYxXGZzMjJcbGFuZzEwMz NcaGljaFxmMVxkYmNoXGYx UYtgD6kbKcEaZ8DeAKWrWc IgIFxwbGFpblxmMVxmczIy IYrzozraTLKeQKmvU3ibAj JmQQJyjKilLHssj7PlGGZt RBHuYxvtoyEsHQm8juQdKZ BhclxwbGFpblxmMVxmczIy MUgemlqpVELmSHqhO5qcYu LmMGXnrDycZFdat3GmLXXg XGNmMlxmczIyIEltbXVub2 yfl8VoG9xcpDvxmMR8ESPq G0ftjTRpiDW5KQJ9kB0nAE zwguBfZMPyo1XbKHOtPUGo NnL4tF5lBXX6BaOStTndKO BsYWluXGYxXGZzMjJcbGFu ZzEwMzNcaGljaFxmMVxkYm UaIJFmYYulP9bfWtSzX7Wg QDKuQjBtyRyjSEnpYAy7Tx xwbGFpblxmMVxmczIyXGxh zhuzBQCwPWgbL0fkFgMzHU LykHbgYRuwy6OfUHPzEUFk MlxmczIyIHMgTWVkaWNhbC WQIW30MKKeGRYptDoebD8a pGBUHSClhaA8z7G9UHkqLJ CeCYm3MQrkgwHsYIOoiC8e IOSjDE3lZXr4veAnBDRut3 ZnIV3qNSIefPYwJDW1NNPv c3OfD2Qxy3YwJBPaNKQcxu 0rdkXuKuHEpYNhHEJygg87 AAHcDH6uH8cxVEQaAOSqlz ZsnEMsy5HuWNHmtWF8fUAl RL6GKpCEg55oMEEaTTOZdf BpSQLyhIrgjAF4kjZ0uV6x LiBUaGUgRkRBIGhhcyBkZX Imkp6zujDtKBIsAJApa4Np jSLzmWPwrsBxE2Ajp1IwCF Clnf16RBpxgOAsoy12DG2x Y1Rue3YhoB3zVDviQWJri8 DdjIJltFAaZGWxj6XrN2fl tyjsSOtvpHEgpD1cVQZeNX s5NIQac3NrCFSyp9MbBlMc vmDiDCYgIYJlWTIvaD49DF L2nWfklFrlbtXzBQ4hAGIe grWzGVBvAITjfM1oRZvhbf HsMRTwfnA0o5B2MNjqIGDj gxGoGcnbCTN5zfDeebQ9iE PxN8yvjpayTIfsSEDuy9Ni rK3anHKKiOObj1DzdPAzqC BGcRXyVY6lmaEqWE8jCJD5 ODggKENMSUEtODgpIGFzIH T1PJvuLeplHAU4yvOvCDJu x8SbQBiyH3dcO75jcWohuM j3lEBybObldXBfsEQdUKIs moU7l6T9YNUgi4DoojlqME BsYWluXGYyXGZzMjJcbGFu ZzEwMzNcaGljaFxmMlxkYm CzVPOmGJlvC2cxBnZlNrYr XpgvZEB0lQ== Gross assessment was [facility] performed at ([facility], = 2777) Department of Pathology, [address] [place] [address], Technical component was [facility] performed at ([facility], = 2778) Department of Pathology, [address] [place] [id number], Professional component [facility] was performed at ([facility], code = 2779) Department of Pathology, [address] [place] [address], [facility] Test Item Value Reference Range Interpretation Comments Case Report (test code Medical Cytology = 104) Report Case: [id number] Authorizing Provider: Jackie Villalta, Collected: 06/29/2022 11:01 AM SAMEER-C Ordering Location: [facility] Radiology Ultrasound Received: 06/29/2022 02:13 PM Pathologist: Saskia Muir MD Specimen: Pleural, Right DIAGNOSIS (test code = [id number]) FuZzEwMzNcZnRuYmpcdWMx IHtccnRmMVxlcGljOTYwMl zfwiMbVEIlxQUjT1Vlmczt RTwmFX6hUR5ixUrswFTloF RiIGXuWuWmz5bnd025xPIq j3zcXAZMkbgvxGu6gRjaZ8 3zf6I4HzjlC1kgSSUfACuc ZWVuMFxibHVlMDtccmVkMj Y9BFkoLDDdWlE6GFUwhCQn OWM7bVrsFOJfepywEkZ3ZH nsCPXhaojxXLc5NTqiZQEy xYS7SRMswOHvK6UqCMCuZF 8fzvv6OUF9KIttEVLhTdJ2 NDBcaGVhZGVyeTcyMFxmb2 07IPT6BsWzWXOtefRzdGrd eX9nIyCoGJSLZNeBRLVCVE VVUkFMIEZMVUlEIChDWVRP A3CMVmHeID2FAJDJAPvcQg fKA8hxIdkxtM0nSKMpPT0l ME3MOZYZMdJxEx2LRS8CHV vATeRLI3cdOIXejfEgAAGx BLzeJzPhV6nwHiXdmPXnCR VUSYXBUIQITtIAFXADMW9M TUEsIENPTVBBVElCTEUgV0 oFPQRAQQvTAOEWEI3tI4HO Z2bEEFwXXMFiY47QNTPINK imkOCzlWhhgyGlRMzab8Tj DGrmQOQoSV4evYjyQUBpKB 0eDYEuK7djdN1pyqb3UmCa FVGmMeJ8BAHemtA1Lin8WP UrPKpku4nmk5UrUDVfYLn0 tVknUuQdDHFqx8lmztCwNo CiUHQrCPWzUCUkbNApS112 n4dnu0gnhwYinFK1QKQgZP R4OUewbjIjjxT6OWvdvIAb ZiJ8XAkieuZqMKpdhbVnbn HmCwm1ZRVxC553FYB3lYdk g2nwPSG4PZDmEDRkOeGxOc 7fzEFwF282AVAxOEOFIHEz aPp8WQCdtfOyeaHuuEFAj6 07T360p6xdENCldgBseVlZ zftxq1heP575PWEraSGrmr TePjUwKAXurXNqlVV8FSRz ZI7qtucgRUlfAYwtLAKgnw B8UDBncXPyL4YfGWLoGG0l ndnuHXT9SJgfJETaZKI0Xs AvAMDdm3Kfbnl9YjUihg9h ii67AJD2g5SaiQfxVLD0HJ M2NkVkSg7vlZEtSUCxAD5j BrMrtKXqKVYwfx01qXkvGW anAQH2PTMqlmTog2Bia6kf ZeDmurOmP3uzU4GhZAViYH HaRJWjSmTbniKoi3Rmc1Nl zSFamIu4a5ssAGPkEOQbwY rfp3vqHLD8FADqiRJnG0dq cE3rPNYrES7rfeckp9jrFM jdSPhhXPBcwWF0igU9GXBe sBMvJ8ZifT5zZCTgHTmaWJ Xirjj6OlOaFa3brHZdxAju MFxzYmtwYWdlXHBnbmNvbn RccGduZGVjXHBsYWluXHBs YWluXGYwXGZzMjRccWxcbG FuZzEwMzNcaGljaFxmMVxk MxTxIVIbFFknB8drWcGvWe DtTdf2CKMgyHShRXIjBvh8 VKFahNLgFKKInPxktJ6yKF EkdAqdnR4gaRU8KQKltpNe wPBGqB4kYKUMqL5pRzE4Fv TmVuB0JRq4BnNISTJpwh48 COMMENT (test code = s5cjzKErAKFjbPV0IwZfBV 3353) Gmk1fbc3LimYCeiYMdYJeu aVMvieUgpr23mOF0lD55IF 7vEWNcRnY8XSPcilL4Xma7 NTViBKBxwJGyJ695c4wij9 ybxvYseWO8CVGdFJOuU7Jj PW0hDFCtmBXxJ67mnBDzBG I5SHHtHSCqoTIgHTVfKMI8 MWEmnDHbD4vwTBWxPO3cwm vjFFgcVMeuXABuqJS6VXSt iXViI5VgKFJyHYyfHDYvsi n2SfHlHa6uuAQowUlrMDqz YXJkXHBsYWluXGZzMjBcY2 OyEU1WATpeDMH8nIauNNue P0FlgCIxdU8jbHLpphQzPt 5lLRLMQZE0OBIaKSMqTOHm YXLyMOTopiIwJ42jrUI0sI CmPFW3rWYgMU99vNmogofk psHcjclcgZ1tIIUidOexwa VvvBAqECjzf9Xhsgdwo8Cr bDGbhNYagEPqFERkwG4zGC HpWEXxnnNize3uDWrrOHHf lG3dHCH5dU1bs3k3GNDcWq 0rAHq4FlY1OVTvdrW1kTE2 ZWQuXHBhcn0= CPT Code(s) (test code l9onaVFxDZDcwJT3WuZuTC = 9341) Oxf3zsg3TybPXzpFDuSDqj bBMelhMlme34zIZ0eO63HH 0dRVTuJxC6XTGfdkB7Cjy3 ROEkSZErjBNtS650p3ttg5 ovgzJnxGC8jWimZWCvxigs BbC6MKfdJWFnzrwwOBa4KT zwQCFujGM4MBUwvIHfC0Bd FFPzNM1epcm2AIT2EMsjMX UiVgI1YXHrkAUzJTNxtGrw VAnpb697MLM8IrAsARFtuf NhoFswiU5vXuRqVEK4VDYj ZWnaPErlAPQuFSp3AjHaZC Bhcn0= CLINICAL DATA (test s0aqmFHrFQLbwKO3FkDtXA code = 3355) Eax1ras7JyyXSnmEMsQMbi lJFikpWegc34vGK4aO23RF 4oVLUqYnR1LLNjtsG4Aeh2 CEAyMCDcyTBzC245d7mza9 jyufGsuMW4BVLsFSYcS4Kg MV1hRBInqQIeX94unDDhLJ D3PFEsJBSnqWUuVIDyIIX8 TQUeeSFaE1ygSXPaZG6brb dnYVutBHwnAQAjoXM5MJKd zHGfO8LlCELaKGasFTRgex e3PeNuSi6pbOIzhXvkKPkm YXJkXHBsYWluXGZzMjAgUm lnaHQgcGxldXJhbCBlZmZ1 s7pawwmvdBkhiP2hyMZrA2 KuOG3lACYnRN6bEMpCVPdd yfGbntKjWoZckLOkt7Vbqx xntk5ivRBmoWHefAEto4Gu ujifqh8IYTl+DP1yGXrABz VuivS0MCfjRDwMFAHjpuus TVD2SACtqyp9s48sVFfpB9 EzP2bva23mLLPseWX9MUL7 G5xuwqLvHcOGTFUCENybmN mrK7CiDg3cxAD3w8hiNNo0 YWJccGFyfQ== SPECIMEN SOURCE (test n9mjmRQdUIAjgHV0NkMnKK code = 3377) Kfb2ypu5DfwCRybBWeULeo tMLbpyHtuf78pDL6wM49MV 0jWJToYjK5ETElxrS8Qtn7 MFBnCITukEWiM707u6bvl9 ozsiZsvNC4cVmdPKRwoyyc PcA3NSauZBZwtqztAPi1YY buKFDqnEO2KLRfuFBlW9Sb DJLaTL9dnym2RGF8JCegHK CxOaM6OXQpyXKlZJSquOej OGoef750QTA2PnHiAKUnja RdxVkmnS7kGeNvFJVIXEvW VCBQTEVVUkFMIEZMVUlEXH Bhcn0= GROSS DESCRIPTION (test k9oxzTZkQYGtzJKNDZDpZ3 code = 5481575339) exibVaOAHifTAyW6Jxgumo JUowAA2wVF9dyBhqwMTfsY KkAR0CTXAeYxDsEBVizPLe mmPfJiJqJXZddLBlqBM2XB DzKN5dvoroVZvyUKjjRKKr xqD4HZGkzCTwJ6ScUXRiGA 7rnjkkIRE0CMrpkE8fqcGW RruyFr1muIEwcEthHmYfWu NoYXJzZXQwXGZuaWwgQXJp VYk4zT4PDazvPRN0EJVCHp aiEUIxQK0Ed3dyFCSbtYWb ORF2ERvlmONrKBMdEGMnOV n3WHXvHGxnfJIzNH8djXde LmeblOrpe0WxjLDsRMieVI SyPBDmCFskBJYzDI0DDpCo LDJsBHQ6OZBbSIs0NLy0LH 6QEqDuPCOeUTS7Xzj6OAWj OMl9JFdiWQ1KWWP6HBR5Ah TvZCK8NRBrWTHeYGEsNtKj XGYgQXJpYWwgXFxmbCBcXG 4idCltuCSwndGUKbNTcZS0 fgTvOQGOgZbguM0erJLpUK 9UEZHzwGGZATB0OG0uJQMM ClxsdHJwYXJcbGluMFxyaW 1vAC1GKXd4kvMpHEHnOpFe AfAcDXf5RFJjUoMiZA5dhk MvqpLdT6IlMgd9wYE6CBWq BWObwdPhWPEsK6c8p9AfaQ 6lBBFgWTBtQIfeIAAer5Wq USXqUEIxILIaddG1rDHlV1 BwbNKwlH1ebwM9RTZ4a0Hw NDI2dM7gjJSkGYOzEFGceC dlaTi5WJG3soHndGRqQGTf GSTmRMJzGrxfl6RuG7RmlW JgTJ5yKQh3TGfclzZofLsf GIWwrlIpq5XaBVvobsZlrB A8LpMdGVPoFQ3wOAJ3JoY9 UjUsUbBfWDhcvWlcyJ3oOF YuP30wy3BBn5ErEZUoNXat p8rlbVfcv2MmdAEdRJssOP YywYGgTKtjgU3mBgYdq3bo lVa1UHcoamR8HJDuzs5NFj telP0kNzRzk6yclTf6LKOT ZjgvyjS4r3fnhJiwu8IxnH WkWD2VFx8= MICROSCOPIC DESCRIPTION a8eaaQBcWXIvzOW3BqQrHM (test code = 3371) Qrh5jus6GfgHJkbEXoHNxw rWXxahCdzq73wSJ9yJ61UF 5lNADpNnJ6TIEvbrH1Ibo1 MNQtOIBtkMUuL211d0oen6 jziyQxiZY4lJcwUONxmjze HbX3SKqiUAAazkncVZa3CW xuCWYolGY3YWPhnZHoL3Ib HFBcEI3dduo8XYL4ZFbeHZ RhNlY2EEFmeUWtXLFwzNbd JFyji695IYX5LwOqXJScbi DokLnxbZ8tLzDbZPJNQDGg m3OoPRJnFKvzWEL9 STATEMENT OF ADEQUACY Satisfactory (test code = 2757) SPECIAL STUDIES (test a6rtiLElXEXce5wuFAAeaQ code = 3376) FuZzEwMzNcZnRuYmpcdWMx OQiskyJbNCbmd9FxV2EsMx AwMFxhbnNpXGRlZmxhbmcx UEGpCAR4ueBnUXQcZGkdJB KiGTnqHe6fwZFtcBosMlGo NXAxv4vdzwWZxxausBv2z8 xfMFHvAyS3bLHeXRkfE2au feNhqJYlR3OxrCTlyCg6x5 skOsBvTgZ0nIWyUFwkA6ak nzSptOAcBMNxMFq3cS70IX BmmJ0kpHPfAVrufaUcJnY7 YYtkLOZpXiZ7IOPqaYBgTQ CqE0tnUYMpIStsHVZpOQfk vBNoDCP2vEkmn2K3wIOjtR VmlFkqLpDxJtIjTjWUh5Wt BOn6pXhqO7SwPGMvRoV3tP QgUGFyYWdyYXBoIEZvbnQ7 bKvrmgOek65ekSWyIPWoFS LgUcJpiDjaCQLkODLLe0Tz zQucFEN6iQa5pCheOnucUI O1Ekz1IH6pdf53vqd1cUjm GMWmjmiiXhA6SBpsFEToqs stQMf3NGbhSWCxyWS5QLWa lLHxB8UvVIDnEX6oojv2TH C3SDenRHMaIeX8DCWjxOHn NPTgpYgsMTcxl373STP3Md FjZM9mM2Zgi0Q5aT9qzGDf IMHxcQRgNuXeDFAdop9kzT BsSUzar8ReIIM7lmZ9tNXa dXOaSQEdGO07Pwfga3WnEi fbm3GxI90ybQY1OBfvm2ky AJ4bLbY4maPvWHhqe7oayB 2uKoY8HLndND6yIV8sSCCg tM7agwonJBKiTfDqcbkuFE ThvOuoeiBwGw6tvZgkBDN8 PRkwK1salK3gZuR0HLanE9 eaqN4hZSu8HNqhvTY4XHAd rA9dPI7rctvpe6vmZUbvQF zyHDBfysZ8wmK7RUTxyJDc F0RfeG4pWQLdPN6gpemtm2 ohMHS7RIgmNSKrTOL0PyNe UWZak8Wirml0QrBuw9UvmB ArWMytM73ng356KPHkbmCa Q9vriFAwvfiylWThoocoIF xbftH1LGTrYZMwUAjsSBYh XGZzMjJcbGFuZzEwMzNcaG ljaFxmMVxkYmNoXGYxXGxv A0weFvUqS9WoWTJeGzVnVU zeRKeveAFizVWnfAB9jH6m YP5aNVFeiEWjZ1AyFADowb ElxZNpXFR4lCJfnYWsGE4r HLyweGKho2zlc4ZeD7xhdC lmtIW5AH3kUZLoNQOcPJwd r2LhxZ9mAliwcXBmcwlvMX xmczIyXGxhbmcxMDMzXGhp T8pgRzCgKHVucRlwGZows5 NoXGYxXGNmMlxmczIyXGx0 cmNoXHBhclxwYXJccGxhaW 9nViFeZtDoWgemQD5jXGDh V0btfOZsPDQdIICeZ1fuMt VcgU8wuGvcMQxgQyZeBaYq BqEQr973zn8kHWJysNSktw MHjQMieF3jRVjhWTbpMJtv fDQgHLnnx4zpZDPkq4p4sJ EpHBIozdQqt6fpEJkslsGr LRAawQYktGDjBRJhi88xIJ palLuicVxpHLGwr1OdaJnz q9AwXaUpPXuvy4SuU26tyD JvbCBzbGlkZXMgcnVuIGFs i62dw5cyCESnUkR0dHHekJ C9mQKjvKFfp6AlrCeiZFPs g3isGRYlbw7uadecrFBft9 VfuV7tfueeSSrtuVSxlzMl KZAjl7x7oKMxUIFgVJZgHX rtzXx1BJDia520qe2udmG2 pVWhQOP4WWyaWQLnAGSheu UgZXZhbHVhdGVkXHBsYWlu XGYxXGZzMjJcbGFuZzEwMz NcaGljaFxmMVxkYmNoXGYx MAxgE7aiPtWyI5IpHDObAi UhsAKfZ2ikbOVbSXQhWLlc XGYxXGZzMjJcbGFuZzEwMz NcaGljaFxmMVxkYmNoXGYx AMphL1knKpHjW9TqTNWyKi IgIFxwbGFpblxmMVxmczIy BSxyoekiYMPeUBywY8ubHx JfBTCfkYajERuhd2WkKHEx KAIzTtfuhkVwJTu4xyDkAL BhclxwbGFpblxmMVxmczIy HGlazuxoGQVuXMmwP8ogZf JdOTGjtUazAMrqz2TmRZHf XGNmMlxmczIyIEltbXVub2 nkk8XwQ9quwOwegHU2KJJo W8nooRSkhEG9DZH9jT1iKM sbuuWjBQImk0EaMNWjGUMa TlR8yX3mOOG0AsCLkLumSX BsYWluXGYxXGZzMjJcbGFu ZzEwMzNcaGljaFxmMVxkYm WdBXSeIZujI9dbBcHzB4Dz TVVsJaAysPhnJXcpXXm3Qo xwbGFpblxmMVxmczIyXGxh ornnDXMlMSfxJ7hmVxGsEM RkzQvcPZyho5DwBFCkUNYi MlxmczIyIHMgTWVkaWNhbC ZUDQ90XARdQVQxlKcrgZ6l jUDLJLEqlhP2s4R3DFlyZZ WuOEh7LAhehaDoBPFerS1v DOVuYZ9zXIm3yjOlVAZli9 XcIG2mEKMkzZVtLYU9UCQu i0MeV8May7MnIADcVRXdcv 5cfeUjXdHAbZRsDUDgde33 PPXtXX9qN4onPFJcOIOplt LnpVJow2YkUXAibFO0lQRj CP6DGlLPy02nHIIuISVUey LqXGHwfXqcvUV7uxN8jS7w LiBUaGUgRkRBIGhhcyBkZX Nveg2azeGeKFOvAGCey3Zc yRKbwKPmktBaJ3Rlr7AcLZ Jlrh60WPmllKDcnk93TA3o K8Jef4YsiY0mHGcuYPAgc5 JwsUAyhXPoSNLrn3WsD3yd zervUXmifIQkuB4eNITwZH y4KNGju7CwCILab6UxXjHw wlWqLHVlURWpTZQqnH56GH C7vJefrYldgjMoTO9nXWKy yuFhXGYdOYXqfT5jNMdxsj VnUNEpdgO9m3Z2YFwcDYGm uxYkRrqqKNQ3xxTnrcI6bA XrR0brwfzpEOqiLWJky9Rc aM9fuLBKpUQfo4TooFThuG HQsTKnPQ1ytxVrMR2hEWH3 ODggKENMSUEtODgpIGFzIH T0ZMbjSgldWPP1dmRjCBGb t0XrSCdjJ1lsT55dhRgylR l5oKOibPbjuZGmsZWsUFZy tvS0r7C2VBGdw7VlbzncSH BsYWluXGYyXGZzMjJcbGFu ZzEwMzNcaGljaFxmMlxkYm NcQAKqLVloR9dwFhTeVgEl HdkaLZW9lH== Gross assessment was [facility] performed at (test code [facility], = 2777) Department of Pathology, [address] [place] [id number], Technical component was [facility] performed at ([facility], = 2778) Department of Pathology, [address] [place] [id number], Professional component [facility] was performed at ([facility], code = 2779) Department of Pathology, [address] [place] [address], [facility] Test Item Value Reference Range Interpretation Comments Case Report (test code Medical Cytology = 104) Report Case: [id number] Authorizing Provider: Jackie Villalta, Collected: 06/29/2022 11:01 AM PA-C Ordering Location: [facility] Radiology Ultrasound Received: 06/29/2022 02:13 PM Pathologist: Saskia Muir MD Specimen: Pleural, Right DIAGNOSIS (test code = [id number] 3220) FuZzEwMzNcZnRuYmpcdWMx IHtccnRmMVxlcGljOTYwMl yniwAaMTNbaTEvQ8Dlzwia ZEptIV5yZT2efNhckURneC JqAZKeXoJda9tjy501bFTq k3esJJGGdzhppWn2fDkkJ8 1xd2G8TgbfE8olQBIqWPmt ZWVuMFxibHVlMDtccmVkMj V1XIhpTGMgDrY4BVTujXYw DZT1oIvrPNBjhrmsYzL4SN cvKEDkbrlcLTw3UXzzMECc fIG3XTXowWEaL8ZzSNAqUU 0sfxf0DAG2YSinEQIyXzW9 NDBcaGVhZGVyeTcyMFxmb2 22JVQ9RcUpUWCeqeVobWic eY0rXnVwVUIATCnJHHKBWS VVUkFMIEZMVUlEIChDWVRP X5ZDLmCmGN1DJZXLEWphWs rTT5miEksyiP0wUTErOZ9b VQ9CURADFyGwGu3TMH4IGA rCKlZYO6piNMYufkPzGAPe UTbeKxFzW1mmAxOkzUEqHJ ZXEWWPHSZWCnVAOBSMXQ2L TUEsIENPTVBBVElCTEUgV0 kNTZMVKZkVUQZBLH6wK7FR G8pFRWuZCCNhB63SOMPRUJ hwhLUeyOorexPlIWsgo5Yo YLbzTRCyAG8peHfaPBMdNH 3xSFNaO6iykX4cijk0EuLg HQQpFgN2CHMnvlO1Oax1BW PhEHjog5vhq8EwIMQxUMx2 gTfeGcVcHNLcy6hknvHiXg TjKHLfLZUoNJJbpGEsI770 s2iqh8ciyxVzoOP4NQGhGK E8XRlbwdPiowU5VXivgHQb HdL4FYaacxCkZLgysyUyqc TxKbf5BJWlN168YSD0bLnv e9wmLMQ0BHPcDLEyXdMvJl 3fvADaI972MLSeGDSTRZLe zYh9TSEyvfCkzpAoeQYCn5 19G240e4piUKTojmXuhEaO txxag3fbW134JCVgqFWcos YoSgFyLGVahYKjwBN5OEIp MN2cwwowSLadSUapJWKyar N1OBQnxNErF2TvRKYbQI8o rkqnXXG1ZVmxNJVvRDV0Aw QeRHDph7Xhrdw0BuJrah3j id67UEN2j5UjnJxtFJK7AW P9GrLxGc0uaJCbBTUiIK2t CdYoaOBiCHFbko75dQxvGD nhSTR1QFJgwzLtc7Ghp8tw XcVpcjGfR4pbS7XnPGMrGV VlOBIvPuLbflYup2Blp8Xr pXLxhVn1f8naMLYuIZHwfF cfv5kvHPD9OXCmdHKhF2ju gH5pWMMwZY8kqhiai7bpGX kbCFmgZBPjhFF4ykV0GJQo nLRoN7KnkZ9eSAYvQEddOH Ondqj3CiBnDh7abMBjwVuo MFxzYmtwYWdlXHBnbmNvbn RccGduZGVjXHBsYWluXHBs YWluXGYwXGZzMjRccWxcbG FuZzEwMzNcaGljaFxmMVxk UvEsDWYzYVquW5kwLvQmTh ZbGri1XWYceJVpQJCmBge0 ZVFmdYOrOZHNsUorwS1lLX KzsCgugV8phWG2LVAswrMz zUDMxB1xTEZQqK5bIwV5Yx VmNlU2MVi8DvDEDXGldd24 COMMENT (test code = l4hplRKsGOUwmUR9TsZdII 1834) Vjj0mhw8PllYPcbRBxHNzl aKScqjYide56kLW4eJ98VX 0sQHGqKcN7NVEmdtH0Kka6 XYNwLUBxiRKpN736a4ftt2 ejlzUuxMW0XKEqFGApF0Qo UZ2wPARtwTAkZ70iaRAaJN B2YPEmYRNlmIYxBHSsKHP8 NGSbvAGkW0vrFTAdOB1zoo fcANblZXlxBLCsqUZ2UFYj uOKoD1FmFKLzROstDBCpco a1JsRbDh7uxXWyeQjkRFit YXJkXHBsYWluXGZzMjBcY2 WbZM0VVWctYOE2ePhnXWlt Y1VpsMSigY5prSSpvqEnXv 5iZAHVRAX9OKHfECHkFHNg TAYrEVJvrnPrB70wjAV3eR RdPRY3aRKlHT46tXysbvvi gnIevuyuqA2pXKTusMolth WvuVFbLDxvu4Kalclef8Ue pVGydKLtcKMmPDMawF7bJH SvZFPlgoWtas8qHSbyDMPn wV0uRPY7xZ6rf7g8XVWvJm 1fKNq6IvJ8DOWzulW3hTC3 ZWQuXHBhcn0= CPT Code(s) (test code z6jraACuTPIuuMP6KxCqDF = 3357) Sgr8alv7AqkVNbgXSkHLoi rRXebeWbgz10zDY9fR14DK 4gMXBbNaJ6OIUmelY8Mkn9 DVSiASUxvPArM710s6cdl8 llsuYzdIB8jZbhCLAhfdix CqM3BYjfQGWqzzweJCy1UY uoBITamTO7NIDppGLgE1Cr TLHvYZ0lmre6WYY9FJryBS HcGjK2VGVqcFPuEAXbaOeu JAzus194YDW5DdWcRXLhaz RhvDgliE0gKdBpKNJ7IBMk NMhlWXmlBHMfTOe9OjLwGQ Bhcn0= CLINICAL DATA (test i8ttiUAsCVUjwFN4FqCbCH code = 3355) Idz0ldj5AetSKsvEDlRCpz iDTfkjGwzb21iCD6nE67BR 5gXJEsKbU9XAJbecP4Ekp0 TIOkVQCtaDAoR002f4lmb1 ayueRssVE1RVSkEYAwF2Xp JN3nBCXpqLNfI78rxYGaRP K2UAZkTFJlrFCuITHwZQY4 RNQgbOTeY1pbZPQsIA8edb smTVxvEIcgPWWhpRH1ZBNh nAIgI8HrCKTdTHlsEOJosn j5MnByHf9dkKLeyLxbVZqn YXJkXHBsYWluXGZzMjAgUm lnaHQgcGxldXJhbCBlZmZ1 e8kfciklfDpkkD8baJNyB8 BhRS8cWNCbSO0oEPbRQDlw xmBcenRkUoColOBex4Icnc cgue8doWGpaXWdgYEao0Cx uziwpu2OQWr+EQ9kZYpHAv KeczH3JYskXEpBHDVmuotc LUC6AUXosru1v98gOYlgY3 GlY4jun44ePUNjqLZ7DQU9 I8resrRnSkOGXAZKOPuspA zdU3UbBq8vnTC7u7odCIw8 YWJccGFyfQ== SPECIMEN SOURCE (test t7cyxSAeNNBflJA9AkXfAK code = 3377) Acy7dfh0YkeHHdwEJnCMos hTGffvOiru67iVD9zL58HX 1nGJCwGtO0DFFqvmE9Xqy8 SVUnCWBfhOWyC251b4ktv2 ryhmLxiRJ9uIonKCIngqvv QzJ1OOydLKPshsjkBXh7FQ stUMAdoFT5VNAfgKKyL7Qu JWOcNM9dpjy9AKS4WImtEL UhNtQ4MZZaqDHnCNJqeGwy KRmsj182AIQ9VoKjXWBpli RdpTsleM1sZsRyVJBDPVnE VCBQTEVVUkFMIEZMVUlEXH Bhcn0= GROSS DESCRIPTION (test j1zmqBDaKSLlrIQGSAHvQ3 code = [id number]) qewvPzHLUemJBrW2Hcdzsp CTjiKL7eJU0biPsucRQhwF EcEH8DJFKsJgNjFCBzoCLf awJfXuOzPSXqeSAvfON0HJ YiFE3mdymuFFrvIAweIHEp fbH2SJQibBEtW5AiZWMoUI 3unwjwSEO2PDbvxP2kdwMQ XxajCi9nvALviLdeGzJtMn NoYXJzZXQwXGZuaWwgQXJp UZw7bZ3VXpigQWP7CLEASz arGOUiTT1Qv9qsDSAxzEKv FPT7DKytwASnCOXiRBVcPX o9WGPkUNdkwSSyZD5uvTqz DbjjqHeyv0OowTHiWGrnDU LaPWVtXAisRVItPB4OCaRs KRFgKYD1APHeRRg2OTg9AL 3FFzAxUPCeNWT6Iuz7COBx SRi0AAvfQY0AVHS0WUY5Tz QyVUE7XYOmMGYlWRUfYdHu XGYgQXJpYWwgXFxmbCBcXG 2lcPgjgMWfrcJDRdSZmBP8 qhIzMZUVjEicgF6dwEYwDC 7ZGXFhuBOYYLJ0VK2tXTFU ClxsdHJwYXJcbGluMFxyaW 0zCF4ZICh8psHgQPVkSmMu FiIfKWd4VYWyBnAwAP6gri DvflYkU0AdHpz0oYI8XGDu SICmxePrPFPgS1k6i5SocS 9dHJCdVTDdOLuoKFMkc3Hh ZDYwWYSpRXCqayB7dUNfK3 TqzSNqrO9fkpI1ZWR3q1Yl OFZ7hL7rbVDbGBFhGSLhyM aiwXu9LQX8smKctBFdRTNe ATSuLEGhQzjip5QoN3GqoT XlYJ9mQGp2HAyxawCqkAmz ZFMpqaVmm4SvIIvkfkCnnL C7NeDzKTFqYB2tUJQ1OqT0 UlTdDtOmRHqeyTfzfA3aOI HtH34ut8MKg3HnGSBjWPhj x9adoFnwq7YueTNcMWttSX KlmJUoHOdvyC9yMzTva1om aSp4XQrhzqV6TEZsvt6IRh djuT6vOvIuw8gntPe0NPBP BvhrzcE6m3iciUyfx8HgfP EtIQ9AZq4= MICROSCOPIC DESCRIPTION p0xowCEnXLBnvRD5XnRlTC (test code = 3371) Njv8mfw7NxiTAxjCGhGLyb vSOivdWlii97lXU0lC86XO 4cZAGyNnS6IXYirlL2Qqr7 WOPmABZutDJnM541l4whq2 hzhwEpdDW7vUqdCWWvlmiq ZfY7OUooGEBogwxgIHz6UU bbNNGkeBC6ZLPfuORmJ6Zm IQGcJB2fweg5JFZ7JNlhHI ZxWoP0NPEzkBDySCQdbOei VYtvz990WRG5RlPyTTZyjf CrvBjrgS6eLiPeNRKEMRFw k6JfENLsLFxrWTQ9 STATEMENT OF ADEQUACY Satisfactory (test code = 2757) SPECIAL STUDIES (test g7hbdPOpHGBxq2wjLHYwbK code = 3376) FuZzEwMzNcZnRuYmpcdWMx BKxlmgMsKPztd6BeW3QvBm AwMFxhbnNpXGRlZmxhbmcx SPVtNMJ4peDiJQHeYTbzRW EaJMdzSj7hwMOkcGmwMzEh HKDpk3mybrGLlgcgjZi3y1 vmDJFeIyD7yXKkAFqaX9ij ssXuyZArP0EnoGLvmSx5v4 szCzGuEwQ1iZYqYTjlP7os kfJkwEHoWPTlSSl7rR92MZ GodK6jtJRpMUvpwhJwYaY5 TAcdWUZuMhJ6EODmkGFqEM DkT1ytJPQxMCmvQMDtPDtt pJLrLPE4tAyyp6P5aYIscU AcvKweBuUaXdPyNhHHs9Ft BXx2gQyvA3FuPDKyErB5yC QgUGFyYWdyYXBoIEZvbnQ7 vVxfviWeo36mcZIrZQUyTY UjTuBuxSclPJFgXPJWv1Bn xFbuHDB7jBw1pSqeXkycZA R8Nxs9HQ3uaq94woq1tHef GROzwqckKsF1JSsiCVYfys znAJl0EDouGQCcgWT7ATGp jTFsH6TvKBNaTG8plhm8YY V2TDfoQFIqQtD6GAKmuMDc OJWtgYwiSGlrp907VKQ2Hw ZiQL5mK8Qmb5P5rQ9nnLGn IZOgsWXkXeEbWLDylt0ojF YqEXzsj1MtAFY6yxR6rPDn kZMgUQEnFH00Uwdfq9MbTq rvm4EqN50avNC1CVsgs5jx UC6qSfO1coWvSKblc5nifO 2dMyF9KEstGL3bWG6nAGCe pQ7sfcfbMGWzSyHwyytuXD LwrDxvmdVwFj2iwEjpDZL0 BYueA8vffE9aCpS0KAtfL2 jxxS5qSGz8DTwreOP3ABHv wR3pXK9clleob4snNGqiFY ulKSSrgtO2nzZ1WCOzqQPt D0VxhE7rHJDnIJ7ktjsja2 qcMNP5UKcqEVOaMTM1XfCq QRXiq2Kjygo8NwJsp5YvgS NyBYxpN52ny364ZKNkuwXi K8povMLyigykaPXlengmDC zgsuU7FIAjXAVyOKymCBZv XGZzMjJcbGFuZzEwMzNcaG ljaFxmMVxkYmNoXGYxXGxv N1tyOqHyA3JvZRMqDoNpDP adTSdfeEKfjRDltNE2sS4s DF2gGIXylZOwP6SnAZEqsc KfdNFkAIW2tRYtaJHvME7q NUcczJNpv2gwq1WtB0jtoH zmzSM0BD5eHMSfNNEaBVcv k4QrzS5bKwfznJIyhydeOT xmczIyXGxhbmcxMDMzXGhp S1doMdEbQXAleLadACijq1 NoXGYxXGNmMlxmczIyXGx0 cmNoXHBhclxwYXJccGxhaW 2yQsDnRkSfRvooVI6gILJt P7ivgDBmDTMuSMIjR2gwZn ZopX3elIoxFLfgSkIeVbGj TmXOh206ww6sQJMblWCtcv IBiDNeuB7fIWzyFLqhLHge dBPeCQnlx3zpODSyp7d7tA MzFVMmkeMhc5zaLOjuhiRn QOHvtWChsWQaUFGcz89dQN wvdFpwvJygCOEhf9SwbMmm e3RyKaHmPSzai0HuG46bvK JvbCBzbGlkZXMgcnVuIGFs g62qx9ckEXHySvJ2cRRpoC C9cUEjmWDvx4UntUsiEPOv g3cgIWGqod4qvczvoKJiy2 SkaR2gfvgfVAquhPZtreMb VCOce8w3rFLgWRIzFSJcYS kcaEt3WGSpv163yl1gxcD7 wQZsFEE8PYlcPBOrZQZawx UgZXZhbHVhdGVkXHBsYWlu XGYxXGZzMjJcbGFuZzEwMz NcaGljaFxmMVxkYmNoXGYx FXigI3sbDfNnG7MhJHAoLo PewEBpO1bxvZSkFHQcPSxb XGYxXGZzMjJcbGFuZzEwMz NcaGljaFxmMVxkYmNoXGYx SVvtD2toZoWdV6EfKCImAu IgIFxwbGFpblxmMVxmczIy GGvekbpiRTDuKTxuT8teQy WoNKDkbWdgDXnvu9HaNLCn GZCxOsphboFdWSo6liCoUU BhclxwbGFpblxmMVxmczIy ZInpgackORTrUAyeK1adNv JfYWMezCzoCEwda4IzKIBt XGNmMlxmczIyIEltbXVub2 pik5TgN3zviBulpOK6USJc N5oboNKhwUI6IRA7aE5mZO layyYzHCBhj2GrVDGkOIKc XoI9hR0pUJD9KdZVpHztSI BsYWluXGYxXGZzMjJcbGFu ZzEwMzNcaGljaFxmMVxkYm KaXDQgRHgfF2bjYmXgT6Jf BVXgHwNltQqaPAalFXd5Dg xwbGFpblxmMVxmczIyXGxh zhllDIJqSSpyS8ioLaCtTF UihAaiAMztj9SiGYBpGRHu MlxmczIyIHMgTWVkaWNhbC GZPC64ZYEuMOIdsBaefB6j oOKVGAEuchC2y8J5HQroET GeOGb4HGrilwLaVXPvwS3g WGSlHE7yGMz3ddQfQRCvr8 DoLW5fCLTkyDGhLLY7ZSLm z4ZyJ6Fjq4VjBTZeBNAlxo 5yxfAfMgANwMNkVUDboe69 VMOtUS4yE9faFUMbVPFicx PclEJoa4TgKJVjcOM2wWWc QY3KFlGBb23hFVUsQVZDbv HyWVCyjZfzjFT2weA5uS6f LiBUaGUgRkRBIGhhcyBkZX Csgx8hkwEmRTWeEFLub0Rm jQNiyLNytbImR5Fyy5RrXQ Dbif26JZogiHVyao79BQ4k J6Ljm8LmbD0eVTjtBPNpw6 VhtPApeFWnSMJyy6CoF2ee kxejDDymqYHckT7iBDOgAA z9WXEop4KkGWMvd8JtHfAg akJwKQNcNDNuARRebB71LZ E9uMbycYkkbvAeYA1lWCPn ixUgMVEyNKLauG0lOIrkzb OiXVLdamY3s1B5EUkwNBYm lrHfZyehRXN4kxCrxyC7zI AeY6onkmrtULtgWSToz6To wC0uoIZDwATkg1BdnMDbkO ZUuXMtSB2itiBfMN2rRMR7 ODggKENMSUEtODgpIGFzIH E7KIznIfzlCTQ5crWuTSBx d3HrDBjhK2cfK62dtFnjkU v1eLKkiXvjjESnnLSwSAYo coK4h2W7XRUgg6RtbsjnBX BsYWluXGYyXGZzMjJcbGFu ZzEwMzNcaGljaFxmMlxkYm BnOCArPZniY9ghQhVyDuBk AaunGLA3yW== Gross assessment was [facility] performed at ([facility], = 2777) Department of Pathology, [address] [place] [address], Technical component was [facility] performed at ([facility], = 2778) Department of Pathology, [address] [place], [place] [id number], Professional component [facility] was performed at ([facility], code = 2779) Department of Pathology, [address] [place] [address], [facility] Test Item Value Reference Range Interpretation Comments Case Report (test code Medical Cytology = 104) Report Case: [id number] Authorizing Provider: Jackie Villalta, Collected: 06/29/2022 11:01 AM SHA Ordering Location: [facility] Radiology Ultrasound Received: 06/29/2022 02:13 PM Pathologist: Saskia Muir MD Specimen: Pleural, Right DIAGNOSIS (test code = k5hmzBFsOJMjk6foVVOtiK 3220) FuZzEwMzNcZnRuYmpcdWMx IHtccnRmMVxlcGljOTYwMl srkmPoTEPgeUHhU6Lslqzy BOvqYN9pTV4vcPdolBWckG WwESSfQiGqa2cpv185zOHb v4mqCFLYdveolFe8fQeaN5 3np2Z5DaciG9vsAUKgFHtx ZWVuMFxibHVlMDtccmVkMj I4CUwkXFLjZiG6COCgbGKq ZLQ2mQaqDFYoepgnSpS9NE llDNVkqpqiLQk6FYshTKWy iYX4UUDhsGFoI6XzLMZsZU 4wqhu8KJL0LShaKPClUfW2 NDBcaGVhZGVyeTcyMFxmb2 43MJR4OmKaJVEvfdCajHtj cI3fSzDzXGWRYMhIYRHUQY VVUkFMIEZMVUlEIChDWVRP B5VFCqNdGX1EFQYFDMofSa yYT9lgCxdwyV6fVPKeEZ0r XV8RQVEABqXhEz2GMV9GFR wWFsRMZ2goNYXfljCfLYMv IBgnVlEqW3xvDeMxeRFbZP UNNQJXOAEAHkDEMPJOMF5E TUEsIENPTVBBVElCTEUgV0 fQJXGNYAsKGUUUXR3tW2CP W8oUNSrOBWLsH58LOYMEGW culYSmkEthuuPaVSykl1Rh SHngMSCvGV4jhRdwJCOrGN 4lIHMwD3cgqV0ylha8QvRi NPGbKaH7UNOwekR3Ptl4MX WcGLmuf7die7XrVSImHCa4 cRbmFtNqYFBqn1gxmvVtBo UkUYUoSEOcFOJrbHIkK658 x5dwq8yxlgOgfSZ8SZVnFP C5NGfacyDpnaK2IIaplFQv KnB5XUoyqeXeSYnygiZkqm IqIgz2VAOyP260YRZ4aAew w4vcOCB6CGSwXLOuOmZaVh 9bbQKjF950OKThKVVXXMJl lJy3UDJzdsEoxgBweAMHr1 69Y755x2fzNHAthsGoxMoL gdhpf6wvJ572PRJllLEwte WsWsEsBPRiuARjvGR5KQQz ZD6kpdurNZiwFBvaMRTlij Z8SIVbwEVpL8VvPJSoIK0o yxttQUP1GBlaWJFsCPU6Wh HqSHEtg0Jkbal5TuHxtn1h ml21GTK4z7EmvCtyJBK8VH B2WxLtKj9mgHVdOKBxRK1v BaDdxYRvGLRbly93pUxrEW fzLKD0PTFrqlMkz6Hib0qu IbGijaLoY9orI1DuDVRjAX RtDPIfRjNidnBgk6Jfw7Vn gIQubRj3n6vqGXIwJECrjL sjp3zeZXA0TBPcrAViQ6vw rG9xUPKrKG8kbysnz5kmJJ chLUbkIXLvwNG2ggS4SHHx yIIcD4NpmY7bKOLgUSjqGM Dbvtt9TnKaZw0tzTDtnSas MFxzYmtwYWdlXHBnbmNvbn RccGduZGVjXHBsYWluXHBs YWluXGYwXGZzMjRccWxcbG FuZzEwMzNcaGljaFxmMVxk ZpGdZIBdWYccN7rqItLjIk ErIdl9PUPagJIuVZVpYno8 BZGjaOEoUVMIuGrqvC1lCH LqlHohgB6bdDB3HKSggqLt iBGDzZ8wICREoC6hQqM1Ky EkRqD4KOw5ZjBMLTZedn45 COMMENT (test code = z5zfaMTnYLYnkCG0JpIdVC 3358) Bqm4aai5VmwTVnsNMsEKdw hTFyjqSrmw88sOY4yP85BL 8wGCPuOeH5OREgitL8Ibl5 VEQhOCVkeTTgE725d6gvj4 kxqaKmqIA7QNKeQJTxM3Ka LO4cXSVguLQfK29inISuFL V5ZPLcKCWmrBDdRTMaXUG8 XQLmzLJnA2ymYKTcTP6oad spURcjWPomOARftDT2VLQs cEEmN5YbDCGhZIavWQObgv t5LeVcXj4ewBDixWybOUoc YXJkXHBsYWluXGZzMjBcY2 MbBW2RZRqaHJZ6lAsrUMtc J4YzvZBqgC5juLBugqRyFf 6fWNVUAXT0ZXKgPDTrNZUv HFLhPZZkibApN47cyRV8nE VmJIL3aZEwRT33fAlqtmio gySshrioyY7vOQCkbEuwss QioKNqDBfsv3Vfonmnp4Pi nHKxvWRqdIDoNBOjeV3gGF IeETDxnnWttt0tLAzrNLLn gC5oAQD7vH2ji6u6FXLbWw 7mLAv4TmS4FIHykbG2sTN4 ZWQuXHBhcn0= CPT Code(s) (test code e6zwdXOvVBZptRO5VyHfNM = 7965) Tms6wws8UjpKGbwVUkBBqq aXRvvvPfey44eLF4lM87VB 9eRASxDaZ4HGLdqlN7Meh3 SWQbWPCshOUfW028y1oom1 wmhoOrlQH3tAdhZFDazmqx VbU4BWwvBHIrajczOWr4YZ qoQQEklQK5DEWfuEHcB5Ux RBWhBQ8exrk8TBA7NBozMK LhIjW0SJNgyLVbKEMteUex ZMvhp036EHW7CtAcNRJiqq HnyEuxsM0sRkNqUNK9ELNr ZNluBYzcOSErLDs9WsCwWJ Bhcn0= CLINICAL DATA (test v3pocIXeCDBevBC6OlXxGR code = 3355) Nwm1xss6QyrNChlBFlCUuw qKFsocUqhf00xWY6sA06MR 9oZEVuCpK3LZVljjU6Jnt8 YXQbGJJquNNuD081p1zgo1 lerqNocWO6GFGoUIMvM1Xe XD6wEVBnlGOjN77tcRLmOP Y9EIOnWKLpfOZxXNRtFNI7 MJEnzBXvJ0nqINBcYI9yea doAZhwQBakVCFbaCR5VBDp bBEzK5ErXBPqRIsdVIEwgt q3EnFsCd4mlEUugMxwMVym YXJkXHBsYWluXGZzMjAgUm lnaHQgcGxldXJhbCBlZmZ1 c6szypuvfBgisV2iaNFbS9 SkWD0rNDNvNS6xTTlANXox hlIjmfFjXcHqvTQhd3Xeen ymph5jtQQutAGboAWqn4Nd gzcuew1YLVh+XY0cSMyNYe YdrpJ3YPcoOLqQJHJdyxdd FDL8MTFzqhb6o03rISmrA6 LdR6hew67xBDMqyRS5QMM9 J2xxkvOqCpRQMWTZJPkdhA crE7JsBz4crEV9t8poDMg2 YWJccGFyfQ== SPECIMEN SOURCE (test p7wwyYGcUVIctBW0QiGhFQ code = 3377) Uyi7qin8HweWMkcIQwWGoj vVNaezEkvf49eXR4xI03IQ 5iZBVcEoB0YFDmwkL9Cpq2 ZRBuGPVfiHEvK637t9spa9 pxpwSfzHV5cGtkOTCzhcbz WtS3TDzaVZWtoleiQVr3CQ myHUJkmNH1SSSwvNWrE3Nx YHZgMB0wpyp7PKO0WFxoHC KxCkT4UCQvcEFtCDHmlRrz GQnfa979QKF6JiVwFIKhda PhhKshaF8dKeXbHQMCUEoB VCBQTEVVUkFMIEZMVUlEXH Bhcn0= GROSS DESCRIPTION (test a0pgdQSwRQBkqRSRNISsV5 code = 3716992193) wztfJxSIQmxGGaW1Ozojrp RYimIP7tAI1xjEurvIJlkW EwKH8MJEJjKfTmNDNpuGKw qiRnTyEqLJHpnFEfkJT5MA IkTX3gpkhbAUajSGgeHOZv afT9MVDecTAcP5GgFAEmNB 0qkdmfIJH1CMaywD1qxjPF UeruSh4rkNOczImhXkMdDq NoYXJzZXQwXGZuaWwgQXJp HRz6cI5QRnhcMSG0SWAZKe abVJHjTP7Uv8tkMDUroERm FVK7UTiofCBkKUNzOWFoUE f2GGKpENzhiBNdUH3djOtq TpzckFeir2FrmMEtEQqbLT CnBRHmUVncMFJsOZ9IYnOf KGIbHEA5RRWuPYw0KVr8JQ 7IXqUqQFKrBHP3Usx4BFQc KLm5TCkiRR1PJXK0YSI4Ep ChHRK3PPJrQEXfRMSaTtBn XGYgQXJpYWwgXFxmbCBcXG 6zqNfywDUupjSKZsCCfVS2 vuJdPXBKuOdscW8faEEcXA 6TWIWgqSZEFAW0MA1kMMLU ClxsdHJwYXJcbGluMFxyaW 1wDH3VKXv2dyYtVHBtHjJq DuGvPVu7QUYiZtJkPA4zrw GzxtArN6EgNhd3oLN0IWLb ZREenrWpNQRxE3h8n4AquA 1fMSPyUJSaXGycTFWqo4Dq GTMsSYDoVLYldyE6gFUmL5 VrmCFldA2mtwE3ISA1h9Te AFF0wG3tqKCnYWMxZMAwoU kfsQt1PTQ5rkWkxOEgXLAm VBGcBQUoAiilh3CyJ2CheK YzZE1lVFc1XJrsqiCpqUti MCNekyOgz0PrMCcgzjXmvD Y6OeJmDHWjAE1pMQU3XkQ0 OnHaVlTxYBvjjNzinH7jQF FcZ31gn2HAj3PvXVPiRHsl a5zxdKrgy8RnxVTeEDorVV BnpNRqJOesfR3aUdOjy3hl nNw2OCjigqE6YVYuoc1MFm xmqH3rZhFsl2yiiEa1SWGN MapgnyR5x9fhmSmbb5OacI BzZS2QLj2= MICROSCOPIC DESCRIPTION h4arjIJsPYPzbLB3UhGkQD (test code = 3371) Lwx3csh5OfvUSqmRFyZWzi aJZtrePybk25lVG9rI27BG 7bUYNcPhG1TAHyhkT6Vuv3 JFNzMFUivDImI051n5tcd9 fmjxPhcQF5rQxiBAZbygsx CyV9GKwfECRfyncyOGd8AX yyYJTlsFI9AKSzaTUrR0Ym UAQaCI7mvag5DXV0SOjqZO QmCoD6PMQmjYAlAOHwcQjq QFqpa731YBN1HqJoHVSznr OccQhqkB1iAcFkZGSPUPRn j8EsYTXcJGlxTYQ8 STATEMENT OF ADEQUACY Satisfactory (test code = 2757) SPECIAL STUDIES (test c5ajkTJpNISli0xaORDikZ code = 3376) FuZzEwMzNcZnRuYmpcdWMx YWuzviQkNCgjj4QgM4TsRr AwMFxhbnNpXGRlZmxhbmcx OMMeDAG5oqEsOSAqXCbhLF NhTKqtZd9brKIjwGoySgUb VPTbi9lxcfPTnrjrxFt7l9 cjNCZrTsI9dGIhNOqvT0cu zlYalFYpU2BueIEehBl3e4 dlLnRoWdP0xDVoIObqS5hy bsZywPAcNKAvRTp3wY91GU DjxK5knVNfHIvngcOmCeE9 MUqkTSLzKeP2AEKieTHxLI LuK3uxDJGvIChqTJUuCAoh pXQuKRE0pLilr2K8jVZpfY WhzRuuFoDqQlJaKwYWt2Vx ZJa6kYniJ4JkLVOkVwO7aJ QgUGFyYWdyYXBoIEZvbnQ7 pVbidjJay70viVVkUEGjPL DwIdPeiHubMRZdLYKIi0Th iYviQCX5rFa1qVlpEidjYJ R4Bjt5BQ4twy72rig9wPkz JNHhdgevVzV9GFpjKNPvhu iaAAn8EManSGGtaSG3FLFk fATzC4RfBCKeQD9gutw8ZL C2TDqhOZFvZlF2TTIxfZZr OUVkhBnbHLxms959MCR0Oj DdLX9oH7Jvx1M2zU4whGFn CSAchGDmGqPvYIDmdu0sqH KoEQknj8IoHDU7puW7vELi sNQcEXXnQV68Rdubo6QlTc zgj8XnX68enRQ9MRplx7lq LD6fTaD6reXfYOagm3zdfH 0tQbU2DTvsTL0bAG0yJZJw yB3dgjemTZPwYxRjayiyKD XdgPhzgxMmPx0asFtmLVD8 BStbU3smuE7xWfG9DAewC3 ccmR2pCQg9ATrgbAR9RSLw xV2nQN9fusjks8iuPYavDJ uiOOUyozE5vhL9LVBzxPZz W2CeiC3mTAQaRV9inxuxg6 ggTCA1DSfoNAZtCPG1XuUs RTQmh9Ukyte3LtTvi0XyjQ ZpYLivW00rf190GGTyjyNm E4bppMXuspkncZWhqpzjNJ tegkD6WUAxOSNcFUroTKPd XGZzMjJcbGFuZzEwMzNcaG ljaFxmMVxkYmNoXGYxXGxv M2yuMjRzW6JgXOJfTjCjQB qhPAjzrKUarYWyfCG6dB9h XB6iRCNxwHRbW5EcFNGexj MwqKTuABZ2fEIyiIPzNX4n ZCqkvMCke9tfd6ZqG0aqmE nfcID3ZJ7aJNQsTMSyTUau b9YkjD1rCoergOJiapuqWJ xmczIyXGxhbmcxMDMzXGhp H3fmEtEdTUKglTxfNBrbf9 NoXGYxXGNmMlxmczIyXGx0 cmNoXHBhclxwYXJccGxhaW 6dRgUpSiZsXfleTV9lLASf E9ylvAWvDUSsMJUrP4gkWx DhpH6vcSyaSPhsBsKmCxDv OzCSj433sa5zDWBwrXVjfe DYxBJbcG4vLErgJOvgIIgw mBKfPXgat9lwZHNhz8j8sC MpXQNuzsKgl1lsDPdmsuJn CPWfsJTukVNrRJMcq77xIJ mlpFyzgJfqILIoh7DnzPiw t8PgHyTzQUoby9FrL56fpE JvbCBzbGlkZXMgcnVuIGFs v37xf3qyXONcCtC3vUIwwV U9hLNzqENaf4CjvOjmWMTr k3beQNWhev6kfatqwHPvi8 SelD9pgpbuKRbefJVsagBo EQZux1f3fYGtXVImWFLqKZ mfpGj6OCZsa281fl2qcsW0 mLFdEQH9SHxmUTFqTIMqyh UgZXZhbHVhdGVkXHBsYWlu XGYxXGZzMjJcbGFuZzEwMz NcaGljaFxmMVxkYmNoXGYx KCfsC6tmOoIgN9GeSZOqBn QnhYXmI4vlvRTqUGUzLEva XGYxXGZzMjJcbGFuZzEwMz NcaGljaFxmMVxkYmNoXGYx XRgiT9keQjNzQ8KoSKDcSe IgIFxwbGFpblxmMVxmczIy ZBihwxrmGTTsLXdhV3ssAh KdSCJzuTpwEYgxd0RlNOPf LDHcPrwgmdMzJVt8ksGfAR BhclxwbGFpblxmMVxmczIy PMeirfkaXSCvHKlbV3bgPm CeVTLruIybYPcsq7TiFUHg XGNmMlxmczIyIEltbXVub2 oro9XhR8fpoNunfVU0FELw P6vdlBZzuEV4NCG6xZ1kSP yqctLpHMEpu1OtQGByUBBn MyK9tP3rDMB6BrLVbVmeUX BsYWluXGYxXGZzMjJcbGFu ZzEwMzNcaGljaFxmMVxkYm ZsUCLfIJgjM0rgKjHnK7Gg FVYsNxOijXetEZrlRCw3Dl xwbGFpblxmMVxmczIyXGxh ngwiMCOrWRzwJ8dtBgJaKU VylOjeOOkfi6CrJGIeNTMc MlxmczIyIHMgTWVkaWNhbC CIPK33ZZTkNNHkfQjexH8n cWPCZTZwkwC2w3B8VUefLN FbXXh9CVhahfCmQPDqqN7y MKXyDM1rHKc4zkYqAPQhs9 VtJA6vOIOebRYgBRC5GPJh g6WnM0Rix0FtDUAaFHAoud 6fjvIbXnHXhMTdQEFgba71 NPWmRN7jB8jaAOAvSCCwnl TczGYpe6ZsALVjkTU5xEDu OQ9ENuMTk68uDPImXEZEvz MxOLYciAudwHB2tkN4qU4x LiBUaGUgRkRBIGhhcyBkZX Rlqr4hzhJfZHMxDXCrc4Xr iRRlhRTjbpMfW1Hfc6WrDB Vpqt82DXyiiSQcmf86KH3g Z7Mes7KwmC5gUNztNSPxl4 PddPHtcYMiHGHri7SiP0tw iovtUWljmCRbtQ4hUDKsEP u4RWBjv1HvCLYbb3BtHmOj hqLoIUHqGTUiEGVjwM66GU A9sRqueHwomrMySK7gAUGb izAtEPZqBOPdlU9oCMpiut NaHFMoyoD9c0I5NUmfULWt gfStIoqgADU6tiOvbcB3oM TmG6ivaldtZCasKUVfz8If nW8qjJADmTIds6HczYChjK IEkOCjEM4sktNnCA8ePFE2 ODggKENMSUEtODgpIGFzIH L1LVmfRikgAQJ9mbMxTEPg b6OiGOmpT5njT96lmHsduQ d1bXKcaQhjqIWkcMVaKWEu whX9a6Z6QWUpm6BfpafaNW BsYWluXGYyXGZzMjJcbGFu ZzEwMzNcaGljaFxmMlxkYm FgEINkLIdsM4qnKsJoWgYd SxrdFJR4oR== Gross assessment was [facility] performed at ([facility], = 5692) Department of Pathology, [address] [place] [id number], Technical component was [facility] performed at (test [facility], = 2778) Department of Pathology, [address] [place] [address] [phone], Professional component [facility] was performed at ([facility], code = 2779) Department of Pathology, [address] [place] [address], [facility] Test Item Value Reference Range Interpretation Comments Case Report (test code Medical Cytology = 104) Report Case: [id number] Authorizing Provider: Jackie Villalta, Collected: 06/29/2022 11:01 AM SHA Ordering Location: [facility] Radiology Ultrasound Received: 06/29/2022 02:13 PM Pathologist: Saskia Muir MD Specimen: Pleural, Right DIAGNOSIS (test code = [id number] 3220) FuZzEwMzNcZnRuYmpcdWMx IHtccnRmMVxlcGljOTYwMl xlcdTaVWSceTGfH7Ptnevm MPghFC7zMT7crGogoMOucA KnZLCmCyImr8yyg194bZYe s8dnXFMUnvicxHs5iPolA8 2td3E1UzlpC4ekCXZkXIdh ZWVuMFxibHVlMDtccmVkMj P9TVnjVJQmXaH3JWSxiPAh KVT9qIleXLIcjpeaWiA3CF gcZUUboeajWEn2MPjsTHRc jLY2NHNoaHBaM7SwSRByPJ 9mhvj0TAO8XQooBSCdAkK1 NDBcaGVhZGVyeTcyMFxmb2 02FTN0SaClQVLqkqPzdCql cA3iDnBsVBGNXLjCWPIISC VVUkFMIEZMVUlEIChDWVRP N3PCJqFfER5JKMTANFhwWk oSL1zfCnrmwK1vYOTnEB8h EM2KTVFBUyAkFe0STJ6XFU xMGtBXR9akEFFmduFxLPFx PUbfYyFuR5qcQkIkrTBiMD LVKWRYNWIURzTIQUZNHG1H TUEsIENPTVBBVElCTEUgV0 lDENNSYHxZIXAXUQ0hI5FQ W8fAOBdQQGSnT32SWJDIYQ caaKLgmJeeepIvJTkkw2Lz BDzlRGOmFR9frEmfEDPaUH 0gXEVvU6kwyA6vhff2MsBq CQHbVwM1GYMpzjT7Rwu8TD AaWCqvb7xdw6VrHTIaPZc7 lTgtHmQsPJQfw9gvycMfBv SrDQFwWZDcQXNdfORwA442 b7had2edttMsiWG6WIVbKE W8PDzkbeEgpdB0IXifwWBe WvQ7NDojyeJtXHmmtpBbqn NjWcq3OFNwK881DMB8yInd f5mtGBA6GUTrQONnFvQyWy 3izPLzR961XDPkONHLMNLq nRg8UVXiykJugeFtmFYFj0 39E927r5yqNEBxgdMrqNwS sbbra8ylM408KYIwoIRlmz TdSvNsCRBqnBUnuDL4RZCw IP9vtyxaUEjbXIowGYGeuw J1PTCmrETmX7OxMKNaRB0c drfxEJL3AQtlRYQeDTU5Tc QtKJFqw4Euwni5QwRlur9h bx59EBX7i9AbyPnfLZJ5IA P5SbWmNr5ujJKlURQcGB2d AmTsuIYkHDYnis55sJdxCM xqWME0VUGlxeWwu1Exo5fj HbCwhoHoO7fnC4ImSBFoES ImNRKxIbQisnCle9Djn3Zf lDMxgBs9f8cwOGQuLJGxhR omd5tjCLD6ICMesAJsU2wf yM5yCMSzVL5bbtwgu2ftBE lfNGqaEDNbgXU8eaF0TAYm pGIwT5BivD2fSJVyIOdbAN Fkysy3HrUkEz8ebBPfyFfz MFxzYmtwYWdlXHBnbmNvbn RccGduZGVjXHBsYWluXHBs YWluXGYwXGZzMjRccWxcbG FuZzEwMzNcaGljaFxmMVxk MpMkGPSkUBlgK1dmJkUeGh VeFcr4HAZvtTZwOKLoPgs9 EYXfvBVeSPKSaLvrpX2sRF WnvTlgnA2nqON0NIEbhmCt jJKXpR5aKJMOpB8iAfO7Na UbKtN2RVs4EqWQOZJsah55 COMMENT (test code = h6fdiBBbSKZhrQU7DwKtUJ 0790) Opi0fpf6OnjKAowTHcZRfd mGWjyhJpnj47lFY7sB55QJ 1cKCJuSjG5QKDuqeK0Lrv9 VSLfAMYmgOPvN052f1rff0 arhpQmqXH1XIFdEMVeC6Am PG3iEDBpmCWzR81qeJFvMB M8ROTwFQQivPWoEYIzALC7 JVMrlEWfW7dwEKJzBP2qey qqZLykCRvrCPOxeSB8BKVm nGAgG1EyANYcFPxaRPZejp u3TzOtVm0xlMHmpNmiJEvm YXJkXHBsYWluXGZzMjBcY2 KsAC0UGDujSWJ1dBpyHZoi L4MibMFehQ9brRGtqaNaCu 7hGKJIQHR5KDWzLZHbDJIh EIWcIMHrvsBxG28geTK0kB EhIZI5rSYpVN39kTprorwl ceRgblsdsH2pBQXexWdhxr BjoWAqMOpho4Cnxmkzb0St yFLabCTxkKFmANDxbV1nZH FdJMJvdcIfry5lBTrzWOUh lA0xAZT9gT6xh6c9IXPqUw 8gBBx1LuN6AWEsycM5pSZ1 ZWQuXHBhcn0= CPT Code(s) (test code e3bvtPEjCBFmhIQ8WyRpDX = 3357) Mqg5pdk8FcsFMnrNHwOWfj bSPvpmEtwf10gMW8yZ78QB 7zGOFrIlJ0FDEswnL2Ptf7 GSWaDHXlaMZiO082o2odw4 ymkdXneXC0uMvsJTNzhyhg XdM1EWbcEVYzrxgdQRp9MO cnABLqeLE3ZDLccZArP9Cv XSAkTL8vfrk3PLR9RIoeZX CcHdW8VTCdnAFpTIWjtSmf LYumr286MHL6RrAyOKKnxh UxcHodtX3cCkLoDPA9WSDe EYkvGMabQGZnSOb1ZyTxZV Bhcn0= CLINICAL DATA (test i3trvRYwKHDkiZJ8VaHpDZ code = 3355) Sjc7fcb7IamWOpjDIqAZtw pKNvumMkkc29yZU3aT25KO 4qHOIoOiH3BWHpsjK4Nlj5 PJPoOOXoxNUsF977h6evf2 hjwaDwjED2KMDyISXuK2Vo IS8mBBRpxHHfR25adPOkRV T9BSKiJQHbmZSlYJUwNPV8 GPDucYHvO5shTFJpYG1nnj btTZifAWxrKXXbzWJ3CYAg dLFxK1UjYCXzIVjxLAEmvx q6NmBuAf3llBVcbEirIUub YXJkXHBsYWluXGZzMjAgUm lnaHQgcGxldXJhbCBlZmZ1 y2nmsmjciJhfxX9uePRgA3 XyPI1fEZWtHY4mYTyEVSht okAhddUxCjAbbQGdx1Ntgo jyyv7foZGtuFAhgUAqy3Xy oewnrv5CZUk+PG2dAUmNLn HuilN3APqvUAgTSOVetuls JBQ0CKLnfth6u99vUJbyV0 HaI9zia15wKEZbdPK3QOE0 F1nezgMaQuQZLMOFSWsbvX koS6ZyFm2ioUC2o1raBCq7 YWJccGFyfQ== SPECIMEN SOURCE (test u9jxeDJhXZAilST1QtTpES code = 3377) Kxv3vrn4HczWFvkINhGMyx mIDoqoAjoq10bGG0hG42SV 8iESVcGnV8RPCwibT3Ojt8 UMUiGFWiiVQtY461v8hue5 lpkbNniTM4eHgpXOYjizit UsV6OPruIOSamnieZHx6DB lbTNObdKW2NYJrnCWtH2Ea PYBoYE2zdlb1BDG4PEhfIX EcPhE2VHCyjHTcNXDpqIxk NXztg078FYT5AiAmGHTemt AbdQghuI8gHxVyKDHFXOdG VCBQTEVVUkFMIEZMVUlEXH Bhcn0= GROSS DESCRIPTION (test m1mgnOApOHPcdOCRJMPhM4 code = 9155776656) iuucIuXFKroQBsK8Qioqhd LLqyWD5wAV5wkKozsVBfeU AiZE0ENTWhKqIyQYZncQYe hiGaTeJaQAHxkFDdgXI2IA RtJQ7fwnatNCnkSXltAYEh wwO5UIGrqEVjP2JoZSHeGD 0bqpoyGWI2GEkwoH9xuaYC RzmiEa3ojPMsqUuzIuEkDf NoYXJzZXQwXGZuaWwgQXJp XFc1lM1UWgzwWXW0VUVLPm qcPQLqSE2Pk4vySAYxpHQg YYW0DIefdXZdXHIfJAJiCC j6WKAkRRmtkLYdYZ9pmLfo HgaovXwls3YzkSBeZVysTL UnFVRzMZohPYSnBB4BIiFr RKGoJDD0KKInGXf5NCz6VV 7VHkQcZAHsFVP3Thz7DUNm LKq4RLgaTW1DOZH0PGG3Zd YaGKB8CHNlLOVnHWAsUyQs XGYgQXJpYWwgXFxmbCBcXG 0jgDojnIBhadKRFgOOiOZ0 aqVvGNTIuNqyrG9qmHWpYB 4ELNBjvIICMAM0SF9iKNAZ ClxsdHJwYXJcbGluMFxyaW 3nEL4DMZf0cpQdROOrOiQt YlCpHIf4LJLkUyGoXV9ppw HbduMcF1IzIbn5mHQ2NMLf CCEnomMdJPZzL7g3i1PyaR 2hDEYrMHPfWChaYGYkc7Py UQPjPVFyYEWlooM7aAImS1 UioIOcpX6jqeS0BDW0s1Fe WXZ9bD6qlAPhAKWyNEPkhD djxPr5YCQ3tfPnbNEyTUVg VIAwXULaOrgjd6SaL5OqfW LzMK5cTRz9EOweruEpxXwl MOIivqEnc1QbTUnfxoJlaX X5JnLoGAZcQS4xUYT8GjK5 VzTsQpAeVEndlWbjbB7dTM FeH32dy6PHr8AvCHBrCPyh b2otfVdox2AxbIQiKZrsFB FwvPUjKCvbqH9eJjFqr6yd eOc3SRtsxqN8FDFtub9BHq lgxH8sCgRnt1ayfUw9GLYF FnhmapV0i6pazSqqf2AqpK AsCM4PPe1= MICROSCOPIC DESCRIPTION i4agoWAbPYQmyVN6QuIeXR (test code = 3371) Dkl0itn4AlqLZnuDMxERir dZTjvmDfom40iQX9zK83YD 3mORIgOiP2ISQmjoL4Mpq1 LMLjQWGleEDhB241e0sjj3 zmkgSsoNE4wMhaNMGzpryp JmY7XCnnOIOfuwygGYt7PH isEVWaxYJ2ZPEblJRdE3Vb GSWoBU3tffb2ZUU7GJplQR CuAgT8OQLlcGJfXDItnCwb PRfsv420YKK9ZjIkMOInyq SreGsvhH3sBiOoUHROSXRh w5ZxUTZxACrvFRF0 STATEMENT OF ADEQUACY Satisfactory (test code = 2757) SPECIAL STUDIES (test d9zmmBHxRUSzk0qoMCEmpN code = 3376) FuZzEwMzNcZnRuYmpcdWMx HSxnsdBgXJtgw8WlT6DqFg AwMFxhbnNpXGRlZmxhbmcx LCJwAFM8fjIlFOKrUKdtVX WlROkeYw5nrVYlnGccHgYx NQCau0jxuuEFkrtutMw3o8 jnUVXdYyK6mMFgZLueY8gn bcHquDTdR6OiiREcyIg9l9 qpUgSaRwD3oMByMXwjL8er niWhbKHsBEVmWUb6mD14BH CtpT6vuTVrKSyqjuXxKjC5 YFncGZVtZrY4NAXbuPTqTQ XzN5flMDQwWKqdKBWeAMwe pHQzMRA7xUvbb4C1jHZyxI QkxWdcArFqYrJiIxYKv1Hc JTm8aEdmU6XrAXUfQfP4wP QgUGFyYWdyYXBoIEZvbnQ7 hIzwuaYne89xbWVxTKSjDK LdTmIxdIzlWMKvZEZBw1Fh xFofDQZ9mAi1vVkwIjisTE B0Ysa5PL4xlh80cik5tQbm WLIqojncJbQ6HKfxCBQgug heULf0RRcmMOVaoUT3SPUf zRCmQ4RrCGDyQM6cmid2VE E4SGunZJLnVmB2ZXKeuDBr IEAjoFpfGGoop696PAD7Mi EqYA4rB8Hvy9C7nF7doSQj JCRoyANhRbSnPKNlll5dbF HbAEtut9UpTWY7ilX2sGKg hVZcMIDyZC39Qjixv1HrRo hfo7HfD61jgXX6EXscm6np LA5dTkF6biKgUBlwq3gmgA 1eHyM3LSwhKR6uZT7nVBDp aW0gyidiFTHaYtDdemvnQX KruJzpjqGjId9jiMggBYC9 DEyrM0sdbZ2rWpG0YKhnS3 dldE9qHTf5GIcoxZE8KKGx jN8hJR1itzlvh9kyHKwdQY tmXZFarnC9zlJ4MBQiyAKc K0GimY4nOHSvKO0rwobhp3 laXDX5GZbfJTLzMOJ6EpHt KXBcd1Wllre2GrBji8YiwA FwMRgwB73ex369EGCvprEp D5idrQPmxhcfyMMcuuazVY xxqsG3KOVzVPVzVMfuXSZt XGZzMjJcbGFuZzEwMzNcaG ljaFxmMVxkYmNoXGYxXGxv F9akYiLyY9GxDXWzRjGlCE tyDVjeiGNrpBSpyVP6pT2a OI2jAJYhhNKrH0ImQBAafw IxjXRaLTS0jVPxtBEtQZ4x CGfmxMHrc3txe3YyS1pkgC eajNP0EV1jBYLpEMLrYFig v8PwnV7eBfvhjFZmzkndHO xmczIyXGxhbmcxMDMzXGhp L5xcVfZcDPAflGlhBIcwh2 NoXGYxXGNmMlxmczIyXGx0 cmNoXHBhclxwYXJccGxhaW 9nXjSdUgVmDeelQC8kGUIb Y7ykqPQkVHYsKKJjK0auRp ZedQ6nlBdlUNpmWcUvXmEm DmOQx007xf4nPRRfpTRprv MNwSBjrW3jJHijBTwzTPsj wTBbAShrw2dwVUJge9w9rT ZmTYNqqbPca0lyFDxqzdDh SBRstXQsiSEpDRZvh10yBA scwUtuiTekSVGdn3CzaVhh d7HsYeUuTVxxz3HqL52exB JvbCBzbGlkZXMgcnVuIGFs v85en8jeKEIoTzU9lNHviE X7cNRskQFxr1ShtOlzZUAi b0zyCYLxrd6nmqmcpFVld4 CqeU7ynnqqIPpqoNReuvEs ITCmq0c4jVNfDJBzTYLqJR ctiPw4ZPZkz314mx1oppP7 fQDkMMP1MHqlGZGxAUDmfo UgZXZhbHVhdGVkXHBsYWlu XGYxXGZzMjJcbGFuZzEwMz NcaGljaFxmMVxkYmNoXGYx TRbwR2seAiWqH2DoKZLpBr AuaKNuX0iixSToZIWdMArt XGYxXGZzMjJcbGFuZzEwMz NcaGljaFxmMVxkYmNoXGYx UWywP5fkWlBpQ0ZgZQBiUy IgIFxwbGFpblxmMVxmczIy ZEesfcfnEHFaEHrcP8sfMb ZhOKQjhJqsLXbmx7UiZNJt INFyPzhfcmVcZYu2rlGgCH BhclxwbGFpblxmMVxmczIy SNoqevfjWXJkSZpnS0hsDu WkIDOdeGfqWPprg8QyIQSd XGNmMlxmczIyIEltbXVub2 fwj8HqW0fgkEtbyAD6XAHb M5lunQClfSI2OQL0sK3sNC rrfsSoUWPpx7TgYRDeAMKt QqV0uS7zZKJ6ZtUTlUnqPM BsYWluXGYxXGZzMjJcbGFu ZzEwMzNcaGljaFxmMVxkYm IoTINvLHanU7qiUwQvC3Cu EWNcMxLfzRtjWIyeANp0Zg xwbGFpblxmMVxmczIyXGxh otgfZXJcVMkeM7voWnLaUY SfxFveWWbgc4NxCKWgTLVf MlxmczIyIHMgTWVkaWNhbC FQSE46PJAbHGBtuJgfeV3w hRIVGYBmnjL7i5P6UWawFJ XwSLg6OJyzplXvYJUdvU2u WPXnEZ6iGZq7kyKtFZQpg5 KyKL6qFHPccDClLMU2PXFm r3QvB4Uat1CfWWHwGNVxjd 3wqrMrLoPCcOUhFYJzwq57 AGHcDX7vH2uqCPWzKZXcdb EqpRPbp1MtPWHuoRS9yEMb MK5FTsFDz46hCYOlXHAAqe PfIHCwnGukkOM4ypS8fA8k LiBUaGUgRkRBIGhhcyBkZX Cqha5pfgOrMBHqCOVej5Go qTCgaJPlarMuF7Bdo5DaSJ Ngto76AJmvrBOdja33DW8p N0Myh1LdaQ0vDTjyNVXib1 RtjEYrmDZjITXxf1GmS3dg mdgfGQaimQBbvY6tFYQmPC o6YDMgp8EpWWXqz5QfDmLc quRpHEYuCBVxHJKehP85BB N2kKqtgMudqaKeKL4iPJAg gxTvWRClTXSyoS2iAZvjet VvTDLxzaZ2m2M6HVotMQTx hySmAmlaRHA0doUerbI1vS HoY2xkstsbBVwjRPMkb8Ch gO9vtFIMtUUyq2VxdAGicG RSyCZaYB6paqTiOU5yDNA5 ODggKENMSUEtODgpIGFzIH P7VDdyQwimFGJ8zfCyALAu k6TqLCcqZ3wmP30swNjeiT c0eGAvcRqoaIUloIUfMCXr rkE6l9K5UFJzf8AzoehhHY BsYWluXGYyXGZzMjJcbGFu ZzEwMzNcaGljaFxmMlxkYm JtQDNmHRscS4mtMmYcMvEz TkwaJCU3lV== Gross assessment was [facility] performed at ([facility], = 2777) Department of Pathology, [address] [place] [address], Technical component was [facility] performed at ([facility], = 0696) Department of Pathology, [address] [place], [place] [id number], Professional component [facility] was performed at ([facility], code = 2779) Department of Pathology, [address] [place] [address], [facility] Test Item Value Reference Range Interpretation Comments Case Report (test code Medical Cytology = 104) Report Case: [id number] Authorizing Provider: Jackie Villalta, Collected: 06/29/2022 11:01 AM SHA Ordering Location: [facility] Radiology Ultrasound Received: 06/29/2022 02:13 PM Pathologist: Ssakia Muir MD Specimen: Pleural, Right DIAGNOSIS (test code = [id number] 3220) FuZzEwMzNcZnRuYmpcdWMx IHtccnRmMVxlcGljOTYwMl zpjfZdQRSslMHvW5Fdlcso EXiaLD8uBW7gkUwblFKpaF LsWMCrFfVdb7dbl777yIDo r8dySMWUzshafDt6aTbvY4 3pj7V5RibeJ1eqNPCxTTac ZWVuMFxibHVlMDtccmVkMj A8YGebJVXzZtL3INDxjNSv QAH8vRpoLQDqotxaLyM3NY oqHGYhtqjoXFt3HQrkPSTd sOX4HDTpdALvS8HpMJTaTY 4cfvs9NVZ3CTliUDRnQoO0 NDBcaGVhZGVyeTcyMFxmb2 44CAC9LnChBDEggeCorHvm mP7eCjCpDXYPCXsTFEITWH VVUkFMIEZMVUlEIChDWVRP A1YDBaJgKD3FXLXGQKokKf pWZ7zeImrupN2zRHJpOH1g GN9PSSFDYnIsMm0KAJ0QSU cJZbULD0bgYNUobnIsVLUe FDfwNyZcY7waWwYqgVKtVH JHYVOYGITTRxCXKNFVZB5W TUEsIENPTVBBVElCTEUgV0 eOAHAXXUsMXODZJR5pR6AE D3fKZTpGEGBaX96WEOHGMH vebIModBdvkvIoBMmyk2Dd UVrcSAByRA1beWofVDByQF 6vNEMoS1bggU4qnut3OeEd BITtUfI9HNPdefR5Yur5SM RkAInki0sed0RsUGVkKPm2 mRwyHqZbYSLre2oazgJcXw SmYIHuIKDmAMEnoWNuU045 v5gre4nmmvWetHG6DIHeRC P0MYhdmxIywtA4YGwnaFSx UaJ5FEwkrqQpHDssfpLxid SvOrt5NYIzR667YDH1xPcx m8bfCSN8UXRyBLAgKfDkNw 5bvJDuT905ZAQfIVDFOPKu rMk6LCCdszPuqwUcmSGEv6 83D021r5fgUYBdcvUlyDqM ucuyd7grG327SSKfhBDnqk UvNoMxMMYvoVRqmHU1HYOs BC8tvfdqQNpxUTwcWEEhex Y6IFWslZNmD9GxMAPhLB2s kvomOHY8LGgjRZYbJYO9Kf AeKJWdb8Gfsbm7QgAnkl3f mi35QZB2t1QuyXjxVHH6IU W8EiBwLe8niHWlQGCoGW5u ZjEmyBUhMVUnfv02uAcnUJ lrVSL2DRCohwDoq1Rkp9ee NhNjlgAkX5iqA7PvKWCcGW FoWRXbYyGykzQwg9Zst2Wi oAQtnKb7d3muQXCuWLTbbJ dzm3rxUFW5DIMfvWFuE5jd rG5tADDhDB3xiyayo1kgSJ xhTUjkCXCuuIP2seJ9BRJp pSVvA9PefG8vDEVdZLhdXA Ncrks1RrTjSi8bqVZpoOgt MFxzYmtwYWdlXHBnbmNvbn RccGduZGVjXHBsYWluXHBs YWluXGYwXGZzMjRccWxcbG FuZzEwMzNcaGljaFxmMVxk QvLkSHVeRSzsX7xxCwUmVy XnEqu4CSTufFPpXENkHbl8 CIDysKBdKWFXpNbxmP4sKB TtoIsrkX5tcSR2BNPhtvDl eDCFdB8yZGFXcG6kRhS1Hb SxSgP5TAf3YiVWHEDnxj31 COMMENT (test code = g8hifPHtSFDsiOV6NuNtJG 5689) Qpl5uuj3KqoGRvtWXlBWet jWRttuMiqa28lVI5hU59EX 0tXORnBtC9ZBNjpfK1Bwy9 KKZvIDEtcASyA999f9vrb2 tiujVnfAU4BFAkYARvW6Ub HN9lOYExoHEoN66aiBIeVA H4COEqFSLmoWUpJYEnIRZ5 YMUsiUJaB8ddGCBpWU3nyp uoJJtkZQmqGEVneQY4CAYo bHCeE3CpQVWjKVfvARBvcs u4KlPySd6aoVEgwExdUHob YXJkXHBsYWluXGZzMjBcY2 OhUA9KQWcnWHN4dEotFBqz A1NrsNHbpL3gxUOoiaAxTz 8cTFTUTJK1GAXdRJRoXQVa YMRaDXFsjtMdO80pwYR9eG UtAPA8bQNqFP66hVxeprgk qbZcpakpqY4hZZJrnNrdsg DpjXSiFWeca3Olwkoea2Be dXLmsVVywNIcCTRtiU6wFG BtIPWvnmVhcx3rAIqlKUDn fW4yDYA8pQ4wi3m2DLPyCd 5jOHr4EmN0WNQzvoX1jOQ6 ZWQuXHBhcn0= CPT Code(s) (test code m3zuwKBdXVGojME6QnPqFG = 3357) Rjv6cfx9LdhEPmuWSoIFkt cOVcopFvgg77eMM4aI88BG 3bNGLpAnS4HWKuylV4Awl4 DIVgMLPpxZXgQ975j2nfp6 ypwhWkyDF7rDeoHMVqqxpm NkZ9MGrsZVQeploiSLx3CK hlGRGjxHP7QHAegALsR5Le EBMlKO0uzms4EZV5VAfvEL DjMwR3RKNphFFnCCAyjGbx RLpmc048MRX5MxHhPTBbvf IjdNsopU6cLoJgZJB8QGWy HDraEAptGQNoZYo9UkXbUG Bhcn0= CLINICAL DATA (test n6tmnJEnRGTvaFC5IoYpAL code = 3355) Snq2rob0LrrLHhnIBtWAvn jYImooBscz78lXU2sF68IB 8zEEGmQxZ5PIWrtyS6Tjq8 BVBxNSBedYAtM543k1xxv7 vazjQsdNY0GNKgBNExC5Bc YK7aTVUcwZTdS71lhWTgJE N9YZFtMDUlmZZgIZZlTYF8 OSJqgBGkG4daWTRyLY2vch tjUSrvPXbwWNRexKC4ABIm mWQtY2LbWITiKMgkAUBblu l5AlVyGo5lkVOwvCuyHWbi YXJkXHBsYWluXGZzMjAgUm lnaHQgcGxldXJhbCBlZmZ1 h5dqtqcojKqrpR5poDWtP3 MiRP9gYILpBA3mJXfUTIpc uuEvwwGaZiWlaQDes6Fcso pkmw7raJCgvEDpjUXnn7Vq aonify0NMAv+JI7uJRvNXv AjzwE6XBdhLIkQCKJffiys LUD1NTNdwir3s59gVYlwG7 AkZ3svn62uQAGduOO5CCM8 U3ighwHfFbXKNLAQUFellB xsJ5XjRn6edIM8s8dlWWn2 YWJccGFyfQ== SPECIMEN SOURCE (test v5gsjAKcZPCdfMY1UoRmQT code = 3377) Opl4yzo6EtfPPgeQXnYJep eGTnccSzhz96jHN2kB31FP 0vFTPoWeK7ZFHnzgQ6Psm6 DMJcQJNmyDAtH655k1lnz9 oihvIbkEF3lWedNNHzedoz EvE5YFjvPLZzgjnhRWb9UC cpWTNhlND6PDWsfMZqS5Wb YWWuFT6imxw7NZR4GXfvOF AfNnG3XAQfpNVuRXDklFns QUisu283DVC9FcJgZGKzng EjmZorqT7yQpTlDITMLHhR VCBQTEVVUkFMIEZMVUlEXH Bhcn0= GROSS DESCRIPTION (test c6uttZTyOVJvzRBEBFPbH9 code = [id number]) yufdPmNZJbvCZwO6Xplvyg TTbqOV7rID4bySaqnXVkdK HtFJ7TSSAbSyJqKTLivGJj djHfHwLvLKTdnHXbjXH6BH NyEW7scqwcIFrxTIpwFAMo ltE2TPZggHQxP2OnSQEwZC 4dlcdnASL1WXgnzK2qtxAH ShtrWh3ybOFbbLaaEeXjBh NoYXJzZXQwXGZuaWwgQXJp OLt1dQ8MVtruTHS6VZLJAp qeXMSnSD5Rg2edXNRwjGZq PAU0CHndqGZzJDNzRHOhNO j2IUHvFAkosSJsBE0btPyh DbadiNcxp6BctHUxMJvgIE IfWFJmDTqgCYTsLS4RCtWz WADqDRQ6TFRvSNd1NIl5ZH 0XQlMbYQXeCRO0Khx7DRGa DUb8SLnwBW7EXZG0IHW0Sn GaIMP7ARJeDEMeLYLhRwUd XGYgQXJpYWwgXFxmbCBcXG 3jiKtsuEWgebQUZnXSoVA7 rqJaMYGDoKsgvS1erLNhDF 5IIGUdaANHDWS3MP0iOYGA ClxsdHJwYXJcbGluMFxyaW 6nFO7OHSj4jdQmQXZeHbPh CeKzSQj8HOPcPzPhIH3wcw ZrrjKlH1IkSeh3bXU1VAXt EJOcmuHdNGSdH1j8w2EynH 9vOJZhVZZdDGecHTYri3Rm TJTcLEGbPLTkicO6jOVxS5 TrkHHdsL5yqeV8JVH3k0Mv VYH3rQ1vkZYmUOQwEBVmyH frwKj6IGN8ksQbtXJqJZJu JBVnGQJcQgggc4FgD4KzyR DoRN0uALv0UAhlyaBixYzt FDPiixIvi8AmYUwwwjYepC A4DyFeJJGbEH0vQXH1SpI8 NhUxLzWrUSrjmWgnhT3oQX LgF00yj8WJy9QzCZGyZDvm l0dnaGecf0YilIWfAZtiTQ TkmRDrYLojgN4nZzUdt9uz pEr5PLapcfH2APPohi0YYf ujkK9jLiHfl2gvuCp8BMAY RqfdyjZ5m4qcjYjtg5HfaZ NwLP1KRo5= MICROSCOPIC DESCRIPTION j5augRJhVGGdxJS2GxTxYW (test code = 3371) Esn9kdt9ZttMLzoWUuDCee fKYdqpJopi00tLQ8rW99IO 4fAGRaXhV2GHJhefV9Ody0 LKPbZFJyyHGpK716y0nad6 oohxSguFF7jUhwXBMspjsh AmB4DFphNGHaqmzbCJf3OF jeNMScjLV2TEWtcWTcA8Cy YTAdOU4jeen6LBT0BSyyZZ BsJjX4IZRgwKBcZVXnqOzs AZjfc025GZP6PiGmMFOwbd WyxXnojZ2sToZdJYWMDGNt p6SsUNHxWHksGVI0 STATEMENT OF ADEQUACY Satisfactory (test code = 2757) SPECIAL STUDIES (test u8jhkVSuVRWei1mqDPGfrB code = 3376) FuZzEwMzNcZnRuYmpcdWMx PSmmhwTaQDpkv3GwU2JxQy AwMFxhbnNpXGRlZmxhbmcx QOGgSJJ3fvUyNORpNWxcIB CwLNxaKh3ceAHtpHtoDeDr LJHsr9yshnREfhbelAc8f7 xsMGWmTrZ0oANlMLziR5jo ylIroDGyE5RbrUCfkVo4n6 owJrFwCtM7cJPcIHgvI0nv xdJrmPLwYSKaLWk0eV65LT RxcP9goZScGZxfnkDiHtT0 PKvdNYZwXwE0LPOwsLCcNL KqX2hgNPAbETwrTYFtFCsp hICvDZP3jThwa8P9qQAkpQ VicZncZfZuWfLwYrUBx5Tu NUz9tHjgF4QsHEJySyZ5rS QgUGFyYWdyYXBoIEZvbnQ7 sOdayqMbh66qrGMwLILrID CzKaQgaBjkTDNmOZYUi5Ew kIicRDA7cKo4bGfaEquqSB Y1Nyh0VG6kkr83yii8pDqd GICcqhwvCvG1SBqxTMGtal ugPKc0LUupSCHdqTT1MFUk zIOsN3SwXOXsYR2coyw0CK B1MSctWIZkRaX9GSFthYAq PAUpeYcpTHlsu460JYE8Cb JdIJ5mO1Cts9C6hC2tdMIs QSOgbPXuHxRgURKrmx1zqA FiIZvle3McDWL0rrF5jZPs yJMaJFGlOZ58Eksxw0ZcVz zpl4OiP89txNC1AGekd3wj TH0cGcQ5ddZxHBgah7neaL 3vAsB7NFfdCV4wCB1kZNRl aW7zwlvvVWAsOjHtujrjGQ JkfLiuueVpPk7cuIavZCI9 BDbdW4dvvZ0wVnE9QBfiA2 knaB9qKPa9ECqdoEC4XDKl lX6sBM6yqdxwn8ooXWwiFJ vtDSJnbsJ3eaL4TOMhjFDz U5LijP3bFFYnBL4pmcfck4 hvMDA6FDgjRPImOFY9BcJj CRGsx3Wyiij2KbJfc2OxxV BuWDrjC88ja416NDOfzwPe S6cggBGwrcnsjFArjxirXH focsE8AZCqSBFhNCnzNXYa XGZzMjJcbGFuZzEwMzNcaG ljaFxmMVxkYmNoXGYxXGxv G3fwRmUeF2KnUAQhMoStSX idVCnhdVLqiIUzvZB1xJ1r YI4gFOTcdMQeT7WcGFZbix TihZYaMTL9lUCpqLOnFI7t ZJtatEBhp0jyi5SeU7mfnD jlkXW3WS0gJKNfWEWxUUsl k3HlxP0sBdyqpNGqfekjDH xmczIyXGxhbmcxMDMzXGhp W7bmNbDdRKLonEvlRUfag3 NoXGYxXGNmMlxmczIyXGx0 cmNoXHBhclxwYXJccGxhaW 5mVdAqSrFxBihdUL4aWVMj S0xjuGYoLZYdHHCzL6ydLm VekF2spLhpMItoRrInKdKr RsFLb555pl3dAYKcsBLogh PLsOEguY5zXJxgIMiaYOip lOAaKOcfi8eyTFBsw8o2eJ CmISOefnBwt1vqQVytbuSj FFVdjPTbrHAgARMxl16bRM dvwMhxiMlxFAOhi9QowIjh d4FgHmHzRCsmf9XnF20anM JvbCBzbGlkZXMgcnVuIGFs b44st2dmHTBkGhP1yDUlrP D6uIMtrQRww8LziKekBSAa p0fgDFYfxz8gztxirRPbt6 XjhA2anbpkLRparSCdbsAl HFEqw9n1sCPjLMVkFLNjPB ljrDz8ZZCts145tt7vzvT9 wYFcZTQ0ZCuwJGToZXCgmy UgZXZhbHVhdGVkXHBsYWlu XGYxXGZzMjJc[facility]ZzEwMz NcaGljaFxmMVxkYmNoXGYx ONprZ3niHyDaS0ApKQDvZe McqFHcS5ubqZFoHDFeYUrs XGYxXGZzMjJcFuZzEwMz NcaGljaFxmMVxkYmNoXGYx HEyrH5wwJcDaY7PwRBSuNg IgIFxwbGFpblxmMVxmczIy SEofwcrbAAKkFHlxH3ilPi EfFJDltXrjDRfcc6QjMNDm UUNkEqglxoFgNVn2ckTmWY BhclxwbGFpblxmMVxmczIy KElfccueWBHpQMbwJ2pvXc YgYKOhrOrgCFfdn9WkHWWn XGNmMlxmczIyIEltbXVub2 yza4RbV2paaBczlFA8KURg P2ithBTduQD8NPE3lD3vCV nxpyDqNJLzw1FqZJQdSDTg VbN4bX7sBWU4HiDFrDvsPR BsYWluXGYxXGZzMjJcbGFu ZzEwMzNcaGljaFxmMVxkYm AnILNyPQtuM9kiAyMaD9Fr GUSdPtXcgMtyQGzlDRy6Qz xwbGFpblxmMVxmczIyXGxh cfjgOFChKCtfI5ioVaPtBC OruZjaURhfc3NiNRJqFKTv MlxmczIyIHMgTWVkaWNhbC VRPT26WPSiVEWsjHshnO5a bRRDLFXrhmP8g5T6DWzfCB QbUFz4FQysxwNfHYLleS1n SPPoWL7yLUn6cbZqOIVrf9 EzBI7kFSBxnLEkARL5BFXj e4CjO7Vif8UzVESkDNXvph 8wfaJbNoWKsDEfHGJcmx12 URZdZL9kO7wfUSBxBDHxup YqbEWde4WjDGOeoNG4dMVk YH4AUfUDk74vDWRfFNCJmt LkWEUbhPtmhYT9ieR3zR2v LiBUaGUgRkRBIGhhcyBkZX Orch4auiNuUENePYTii5Ye bWYjoMNpliWgY7Nbe9JcCW Njwn31DKdfzYHrty56JB5p Q5Amu7OutA9dENkjVXOhi5 RdeAThyXVeHIHin3MjY1qi nryiDEpckMHrxJ9pQGYlQB f0YAOas3UwJMIgo5FmKbRh dvFvXODqAORyFFOhbP99VT R3yQlwyUoqrdPzZP0ySNJg xyArJGRxDNLdcD8wMQbssk MuVYRabqX3t6A1ZGkmXPSx wrOtTwbfRHA9ihDgstI7wC BoM8hqyttlZLwrSJXrc7Vn qR0hwJETnPWbk9OvsPCmbP RNrGDdRA9uetFvLN0qBDE5 ODggKENMSUEtODgpIGFzIH G2NYgwJkgkTJA3urGrOZPq t9XdXJhiP9ojO00hrXgphX t5zWApcIjqlYLsqUZmUFXz shS9e1H4WTMsu2TkjgkeAH BsYWluXGYyXGZzMjJcbGFu ZzEwMzNcaGljaFxmMlxkYm XnKSUjXNwuJ9twFmYuNaIc PytaCHN7tW== Gross assessment was [facility] performed at ([facility], = 6974) Department of Pathology, [address] [place] [address], [place] [address], Technical component was [facility] performed at (test code [facility], = 2778) Department of Pathology, [address] [place] [address], Professional component [facility] was performed at ([facility], code = 2779) Department of Pathology, [address] [place] [address], [facility] 12:28:43Medical Cytology Report Case: [id number] Authorizing Provider: Jackie Villalta, Collected: 03/2022 11:01 AM PA-Yordy Ordering Location: [facility] Radiology Ultrasound Received: 06/29/2022 02:13 PM Pathologist: Saskia Muir MD Specimen: Pleural, Right RIGHT PLEURAL FLUID (CYTOSPINS AND CELL BLOCK): - POSITIVE FOR MALIGNANCY - METASTATIC CARCINOMA, COMPATIBLE WITH MULLERIAN ORIGIN (SEE COMMENT) Signing Pathologist Direct Phone Line: [phone] signed by Saskia Muir MD on 07/03/2022 at 12:28 PM Few atypical cells positive for PAX 8 are seen and are compatible with Mullerian origin (patient has history of primary peritoneal carcinoma). 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 RIGHT PLEURAL FLUIDA. Pleural, Right.Received 250 mls orange fluid; prepared 4 cytospins and cell block(A2) - for thecell block we used cytorich red fixative to lyse the red blood cells and it was fixed in formalin at4:10 pm on 06/29/2022 Performed. SatisfactoryThe interpretation of this case included the use of immunohistochemistry or special stains.Control Slides Examined: In-house known positive controls were evaluated along with the test tissue. These control slides run alongside of the patients sample show joanne ropriate staining. Internal positive and negative controls when available are evaluated Immunohistochemistry technical testing was performed at [facility], Pathology Laboratory where it was developed and its performance characteristics were determined. It has not been cleared or approved by the U.S. Food and Drug Administration. The FDA has determined that such clearance or approval is not necessary. The test is used for clinical purposes. It should not be regarded as investigational or for research. This laboratory is certified under the Clinical Laboratory Improvement Amendments of 1988 (CLIA-88) as qualified to perform high complexity clinical laboratory testing.[facility], Department of Pathology, [address] [place] [address], [facility], Department of [facility]ology, [address] [place] [address], [facility], Department of Pathology, [address] [place] [address], R/S, [id number] 16:24:00CT performed at [place] MRI on 06/18/2022 shows a right pleural effusion. Need to know if malignantLaterality?->RightLabs to be Ordered:->No Labs NeededReason for Exam:->Pleural effusion [facility] 1950 Sex: FFINAL REPORT Exam: Ultrasound guided thoracentesis Clinical History: Right-sided Pleural Effusion Chef: Jackie Villalta PA-C Supervising Physician: Niranjan Crane MD Consent: Benefits and risks were explained to the patient who gave consent to the procedure. Complication: None Immediate Procedure: The patient was placed in sitting position. The right posterior chest was prepped and draped in usual sterile fashion. 2% lidocaine was used as local anesthetic. Under ultrasound guidance, a thoracentesis catheter was inserted into the pleural cavity. Approximately 220 cc of clear yellow pleural fluid was aspirated. The catheter was removed. The specimen was sent to the laboratory for further analysis. The patient tolerated the procedure well without any adverse reaction. A STAT chest x-ray was ordered. The patient left the department in stable condition. Impression: Ultrasound guided right-sided thoracentesis. Signed: Niranjan Crane Verified Date/Time: 07/02/2022 16:24:47 Reading Location: [facility] Reading Room RAD, CHEST, 1 VIEW, NON [id number] 11:03:00Reason for exam:->post right sided thoracentesisShould this be performed at the bedside?->Yes[facility] : 1950 Sex: FFINAL REPORT RAD, CHEST, 1 VIEW, NON DEPT INDICATION: post right sided thoracentesis COMPARISON: March 10, 2022 FINDINGS: Portable frontal view of the chest. IMPRESSION: Support Lines: Right chest Port-A-Cath tip overlies the cavoatrial junction. Lungs and pleura: Small right pleuraleffusion is reduced compared to prior examination, without pneumothorax status post right thoracentesis. Right lung base atelectasis but the remainder of the lungs are well aerated.Heart and mediastinum: Unremarkable for AP technique and stable in appearance. Additional findings: None. Signed: Rufino Dunnort Verified Date/Time: 06/29/2022 11:03:23 PROTHROMBIN [id number] 07:53:24 Test Item Value Reference Range Interpretation Comments PROTIME (BEAKER) 13.8 seconds 11.9-14.2 (test code = 759) INR (BEAKER) (test 1.13 See_Comment [Automat ed message] code = 370) The system [employer] generated this result transmitted ref erence range: <=5.90. The reference range was not used to int erpret this result as normal/abnormal . RECOMMENDED COUMADIN/WARFARIN INR THERAPY RANGESSTANDARD DOSE: 2.0 - 3.0 Includes: PROPHYLAXIS for venous thrombosis, systemic embolization; TREATMENT for venous thrombosis and/or pulmonary embolus.HIGH RISK: Target INR is 2.5-3.5 for patients with mechanical heart valves.CBC W/PLT COUNT & AUTO [id number] 07:47:16 Test Item Value Reference Range Interpretation Comments WHITE BLOOD CELL COUNT (BEAKER) 4.6 K/ L 3.5-10.5 (test code = 775) RED BLOOD CELL COUNT (BEAKER) 2.63 M/ L 3.93-5.22 L (test code = 761) HEMOGLOBIN (BEAKER) (test code = 9.4 GM/DL 11.2-15.7 L 410) HEMATOCRIT (BEAKER) (test code = 29.6 % 34.1-44.9 L 411) MEAN CORPUSCULAR VOLUME (BEAKER) 112.5 fL 79.4-94.8 H (test code = 753) MEAN CORPUSCULAR HEMOGLOBIN 35.7 pg 25.6-32.2 H (BEAKER) (test code = 751) MEAN CORPUSCULAR HEMOGLOBIN CONC 31.8 GM/DL 32.2-35.5 L (BEAKER) (test code = 752) RED CELL DISTRIBUTION WIDTH 15.9 % 11.7-14.4 H (BEAKER) (test code = 412) PLATELET COUNT (BEAKER) (test 161 K/CU MM 150-450 code = 756) MEAN PLATELET VOLUME (BEAKER) 9.7 fL 9.4-12.3 (test code = 754) NUCLEATED RED BLOOD CELLS 0 /100 WBC 0-0 (BEAKER) (test code = 413) NEUTROPHILS RELATIVE PERCENT 39 % (BEAKER) (test code = 429) LYMPHOCYTES RELATIVE PERCENT 27 % (BEAKER) (test code = 430) MONOCYTES RELATIVE PERCENT 12 % (BEAKER) (test code = 431) EOSINOPHILS RELATIVE PERCENT 21 % (BEAKER) (test code = 432) BASOPHILS RELATIVE PERCENT 1 % (BEAKER) (test code = 437) NEUTROPHILS ABSOLUTE COUNT 1.78 K/ L 1.56-6.13 (BEAKER) (test code = 670) LYMPHOCYTES ABSOLUTE COUNT 1.24 K/ L 1.18-3.74 (BEAKER) (test code = 414) MONOCYTES ABSOLUTE COUNT (BEAKER) 0.54 K/ L 0.24-0.36 H (test code = 415) EOSINOPHILS ABSOLUTE COUNT 0.98 K/ L 0.04-0.36 H (BEAKER) (test code = 416) BASOPHILS ABSOLUTE COUNT (BEAKER) 0.04 K/ L 0.01-0.08 (test code = 417) IMMATURE GRANULOCYTES-RELATIVE 0 % 0-1 PERCENT (BEAKER) (test code = 2801) ARTERIAL BLOOD [id number] 17:09:00 Test Item Value Reference Range Interpretation Comments ARTERIAL BLOOD GAS PH 7.32 mmHg 7.35-7.45 L (test code = PHA) ARTERIAL BLOOD GAS 50.7 mmHg 35.0-45.0 HH PCO2 (test code = PCO2A) ARTERIAL BLOOD GAS 38.5 mmol/L 80.0-100.0 LL PO2 (test code = PO2A) BICARBONATE TOTAL 25.2 mmol/L 20.0-26.0 N HCO3 (test code = HCO3) BASE EXCESS (test -1.6 mmol/L -3.0-3.0 N code = GILLIAN) ABG O2 SATURATION 67.6 % 95.0-100.0 L All critic al values (test code = SATA) report to and readback by DR. GALLARDO by A.ST VarelaLJEnma at 06/16/2022 8: 30:15 AM ABG DELIVERY (test RM AIR code = RICKY) ABG TEMPERATURE (test 37.0 C See_Comment [Auto mated message] code = TEMPA) The system [employer] generated this result transmitted ref erence range: 37. The reference range was not used to int erpret this result as normal/abnormal . ABG SITE (test code = PA SITEA) ALLENS TEST (test NA CHECK code = ALLENS) FIO2 (test code = 21 % COHBGFFIO2) ARTERIAL BLOOD [id number] 17:07:00 Test Item Value Reference Range Interpretation Comments ARTERIAL BLOOD GAS PH 7.34 mmHg 7.35-7.45 L (test code = PHA) ARTERIAL BLOOD GAS 47.6 mmHg 35.0-45.0 H PCO2 (test code = PCO2A) ARTERIAL BLOOD GAS 71.1 mmol/L 80.0-100.0 L PO2 (test code = PO2A) BICARBONATE TOTAL 24.9 mmol/L 20.0-26.0 N HCO3 (test code = HCO3) BASE EXCESS (test -1.4 mmol/L -3.0-3.0 N code = GILLIAN) ABG O2 SATURATION 93.2 % 95.0-100.0 L (test code = SATA) ABG DELIVERY (test RM AIR code = RICKY) ABG TEMPERATURE (test 37.0 C See_Comment [Auto mated message] code = TEMPA) The system [employer] generated this result transmitted ref erence range: 37. The reference range was not used to int erpret this result as normal/abnormal . ABG SITE (test code = LINE SITEA) ALLENS TEST (test NA CHECK code = ALLENS) FIO2 (test code = 21 % COHBGFFIO2) CBC W/O [id number] 15:02:00 Test Item Value Reference Range Interpretation Comments WHITE BLOOD CELL (test 2.2 K/MM3 3.8-9.8 LL ACKERMAN D TO code = WBC) STACIE.W& READBACK ON 06/16/22 AT 070 6 BY Holger Akers X RED BLOOD CELL (test 2.33 M/MM3 3.58-4.97 L code = RBC) HEMOGLOBIN (test code 8.4 G/DL 11.2-14.9 L = HGB) HEMATOCRIT (test code 26.1 % 33.2-43.5 L = HCT) MEAN CELL VOLUME (test 112 fL 80.7-99.1 H code = MCV) MEAN CELL HGB (test 36.1 pg 27.0-34.1 H code = MCH) MEAN CELL HGB 32.2 % 32.2-35.7 N CONCETRATION (test code = MCHC) RED CELL DISTRIBUTION 17.2 % 12.1-15.2 H WIDTH (test code = RDW) PLATELET COUNT (test 130 K/MM3 129-368 N code = PLT) NEUTROPHIL # (test 0.57 K/mm3 2.0-7.6 L code = NT#) IMMATURE GRANULOCYTE # 0.00 x10 3/uL 0-0.03 N (test code = IG#) LYMPHOCYTE # (test 1.13 K/mm3 1.0-3.8 N code = LY#) MONOCYTE # (test code 0.34 K/mm3 0.1-0.8 N = MO#) EOSINOPHIL # (test 0.10 K/mm3 0.0-0.2 N code = EO#) BASOPHIL # (test code 0.02 K/mm3 0.0-0.2 N = BA#) NUCLEATED RBC # (test 0.00 K/mm3 0.0-0.1 N code = NRBC#) DIFFERENTIAL [id number] 15:02:00 Test Item Value Reference Range Interpretation Comments RBC MORPHOLOGY REQUIRED (test code = ABNORMAL RBCM) PLATELET ESTIMATE (test code = ADEQUATE ADEQUATE PLTEST) PLATELET MORPHOLOGY (test code = NORMAL NORMAL PLTMORPH) POIKILOCYTOSIS (test code = POIK) FEW NONE ANISOCYTOSIS (test code = ANISO) MODERATE NONE MACROCYTOSIS (test code = MACR) MODERATE NONE WBC [id number] 15:02:00 Test Item Value Reference Range Interpretation Comments TOTAL CELLS COUNTED 130 #CELLS (test code = TCC) SEGMENTED NEUTROPHILS 31.7 % 36.2-73.8 L (test code = SEG) LYMPHOCYTE (test code 46.7 % 12.9-45.1 H = LYMPH) MONOCYTE (test code = 11.7 % 0-11 H MON) RBC MORPHOLOGY REQUIRED (test code = RBCM) PLATELET ESTIMATE ADEQUATE (test code = PLTEST) PLATELET MORPHOLOGY NORMAL (test code = PLTMORPH) BAND NEUTROPHIL (test 3.3 % 0-10 N code = BAND) ATYPICAL LYMPH (test 5.0 % 0-0 H code = ALYMPH) EOSINOPHIL (test code 1.6 % 1-7 N = EOS) NUCLEATED RED BLOOD 8 0-0 H CELL (test code = NRBC) DIFFERENTIAL COMMENT PATH REVIEW ANEMIA, MODERATE, (test code = DC) MACROCYTIC; RULE OUT A FOLATE/B-12DEFI CIENC Y;LEUKOPENIA WI TH MODERATE NEUTROPENIA; RU LE OUT A VIRAL/DRUGREACT ION;P LATELETS ADEQUA TE TO BORDERLINE LOW. -DR Tobi Galeano-Marc ez ARTERIAL BLOOD [id number] 09:20:00 Test Item Value Reference Range Interpretation Comments ARTERIAL BLOOD GAS PH 7.32 mmHg 7.35-7.45 L (test code = PHA) ARTERIAL BLOOD GAS 46.6 mmHg 35.0-45.0 H PCO2 (test code = PCO2A) ARTERIAL BLOOD GAS 89.4 mmol/L 80.0-100.0 N PO2 (test code = PO2A) BICARBONATE TOTAL 23.3 mmol/L 20.0-26.0 N HCO3 (test code = HCO3) BASE EXCESS (test -3.1 mmol/L -3.0-3.0 L code = GILLIAN) ABG O2 SATURATION 96.1 % 95.0-100.0 N (test code = SATA) ABG DELIVERY (test UNKNOWN code = RICKY) ABG TEMPERATURE (test 37.0 C See_Comment [Auto mated message] code = TEMPA) The system [employer] generated this result transmitted ref erence range: 37. The reference range was not used to int erpret this result as normal/abnormal . ABG SITE (test code = UNKNOWN SITEA) ALLENS TEST (test NA CHECK code = ALLENS) FIO2 (test code = 21 % COHBGFFIO2) CBC W/AUTO [id number] 07:06:00 Test Item Value Reference Range Interpretation Comments WHITE BLOOD CELL (test 2.2 K/MM3 3.8-9.8 LL ACKERMAN D TO code = WBC) STACIE.W& READBACK ON 06/16/22 AT 070 6 BY Holger Akers X RED BLOOD CELL (test 2.33 M/MM3 3.58-4.97 L code = RBC) HEMOGLOBIN (test code 8.4 G/DL 11.2-14.9 L = HGB) HEMATOCRIT (test code 26.1 % 33.2-43.5 L = HCT) MEAN CELL VOLUME (test 112 fL 80.7-99.1 H code = MCV) MEAN CELL HGB (test 36.1 pg 27.0-34.1 H code = MCH) MEAN CELL HGB 32.2 % 32.2-35.7 N CONCETRATION (test code = MCHC) RED CELL DISTRIBUTION 17.2 % 12.1-15.2 H WIDTH (test code = RDW) PLATELET COUNT (test 130 K/MM3 129-368 N code = PLT) MEAN PLATELET VOLUME 10.6 fl 7.4-10.4 H (test code = MPV) NEUTROPHIL % (test 26.5 % 43-75 L code = NT%) IMMATURE GRANULOCYTE % 0.0 % 0.0-2.0 N (test code = IG%) LYMPHOCYTE % (test 52.3 % 14-44 H code = LY%) MONOCYTE % (test code 15.7 % 4-13 H = MO%) EOSINOPHIL % (test 4.6 % 0-6 N code = EO%) BASOPHIL % (test code 0.9 % 0-2 N = BA%) NUCLEATED RBC % (test 0.0 % 0-1.0 N code = NRBC%) NEUTROPHIL # (test 0.57 K/mm3 2.0-7.6 L code = NT#) IMMATURE GRANULOCYTE # 0.00 x10 3/uL 0-0.03 N (test code = IG#) LYMPHOCYTE # (test 1.13 K/mm3 1.0-3.8 N code = LY#) MONOCYTE # (test code 0.34 K/mm3 0.1-0.8 N = MO#) EOSINOPHIL # (test 0.10 K/mm3 0.0-0.2 N code = EO#) BASOPHIL # (test code 0.02 K/mm3 0.0-0.2 N = BA#) NUCLEATED RBC # (test 0.00 K/mm3 0.0-0.1 N code = NRBC#) BASIC METABOLIC [id number] 06:20:00 Test Item Value Reference Range Interpretation Comments SODIUM (test code = 138 MMOL/L 137-145 N NA) POTASSIUM (test code = 4.1 MMOL/L 3.5-5.1 N K) CHLORIDE (test code = 103 MMOL/L 98-107 N CL) CARBON DIOXIDE (test 30 MMOL/L 22-30 N code = CO2) GLUCOSE (test code = 103 MG/DL 74-106 N GLU) BLOOD UREA NITROGEN 26 MG/DL 7-17 H (test code = BUN) GLOMERULAR FILTRATION > 60 Report ing units: RATE (test code = GFR) ml/mi n/1.73 m2 (Modified MDRD Formula)Referen ce Range: > or = 6 0 ml/min/1.73 m2 CREATININE (test code 0.80 MG/DL 0.52-1.04 N = CREAT) CALCIUM (test code = 9.4 MG/DL 8.4-10.2 N CA) LIPID PROFILE (CORONARY RISK)[id number] 06:20:00 Test Item Value Reference Range Interpretation Comments TRIGLYCERIDES (test 160 MG/DL 150-199 N TRIGLYCE RIDES code = TRIG) REFERENCE RANGE:Normal: < 150 mg/dLBorderline High: 150-199 mg/dLHi gh: 200-499 mg/dLVe ry High: >=500 mg/ dL CHOLESTEROL (test code 209 MG/DL <200 = CHOL) HDL CHOLESTEROL (test 50 MG/DL 40-59 N code = HDL) LIPOPROTEIN LDL (test 106 MG/DL 0-99 H OPTIM AL.........<100 code = LDL) mg/dLNEAR OPTIMAL/ABOVE OPTIMAL........ .100-12 9 mg/dL BORDERL INE HIGH.........13 0-159 mg/dL HIGH.........16 0-189 mg/dL VERY HIGH.........>/ = 190 mg/dL [id number] 06:20:00 Test Item Value Reference Range Interpretation Comments MAGNESIUM (test code = MAG) 1.9 MG/DL 1.6-2.3 N PROTHROMBIN [id number] 06:15:00 Test Item Value Reference Range Interpretation Comments PROTHROMBIN TIME 12.0 SECONDS 9.4-12.7 N PATIENT (test code = PTP) INTERNATIONAL NORMAL 1.1 0.86-1.14 N The INR is to be RATIO (test code = used only for INR) monitoring oral anticoagulantth erap y. INDICATION I NR VALUE ---- ---- ---- -------1. Prophylaxis, de ep venous thrombos is, including high risk surgery. 2.0 - 3.0 2. Prophylaxis, deep venous thrombosis, hip surgery, treatm ent for deep venous thrombosis or pulmonary prevention of systemic emboli sm in patients wit h valvular heart disease, atrial fibrillation, tissue heart va lve, or acute myocar dial infarction. 2.0 - 3.0 3. Technical Training Coordinator al prosthesis hear t valves, recurre nt systemic emboli sm. 3.0 - 4.5 PTT [id number] 06:15:00 Test Item Value Reference Range Interpretation Comments PTT ACTIVATED (test code = APTT) 27.3 SECONDS 26.2-35.4 N COVID 19 Asymptomatic IH [id number] 05:32:00 Test Item Value Reference Range Interpretation Comments COVID 19 NEGATIVE Negative "Negative resul ts from Asymptomatic IH AG patients with symptom (test code = onset beyondfiv e days, COVNONPUIAG) should be treat ed as presumptive, andconfirmation with a molecular assay , if necessary forpa tient management may be performed. Nega tive results do notr ule out COVID-19 and sh ould not be used as the sole basisfor treatm ent or patient managem ent decisions, includinginfect ion control decisio ns. Negative result s should beconsidered in the context of a pa tients recent exposure s,history, and the presenc e of clinical signs and symptomsconsist ent with COVID-19.This t est detects both vi able andnon-viable S ARS-CoV and SARS CoV-2. Test performance dep endson the amount of virus (antigen) in the sample." [id number] 08:10:20 Test Item Value Reference Range Interpretation Comments MAGNESIUM (BEAKER) (test code = 1.6 mg/dL 1.6-2.6 627) COMPREHENSIVE METABOLIC [id number] 08:10:09 Test Item Value Reference Range Interpretation Comments TOTAL PROTEIN 6.3 gm/dL 6.0-8.3 (BEAKER) (test code = 770) ALBUMIN (BEAKER) 4.1 g/dL 3.5-5.0 (test code = 1145) ALKALINE PHOSPHATASE 58 U/L 40-150 (BEAKER) (test code = 346) BILIRUBIN TOTAL 0.4 mg/dL 0.2-1.2 (BEAKER) (test code = 377) SODIUM (BEAKER) (test 142 meq/L 136-145 code = 381) POTASSIUM (BEAKER) 4.1 meq/L 3.5-5.1 (test code = 379) CHLORIDE (BEAKER) 110 meq/L 98-107 H (test code = 382) CO2 (BEAKER) (test 29 meq/L 22-29 code = 355) BLOOD UREA NITROGEN 19 mg/dL 7-21 (BEAKER) (test code = 354) CREATININE (BEAKER) 0.73 mg/dL 0.57-1.25 (test code = 358) GLUCOSE RANDOM 94 mg/dL 70-105 (BEAKER) (test code = 652) CALCIUM (BEAKER) 9.1 mg/dL 8.4-10.2 (test code = 697) AST (SGOT) (BEAKER) 18 U/L 5-34 (test code = 353) ALT (SGPT) (BEAKER) 12 U/L 6-55 (test code = 347) EGFR (BEAKER) (test 78 mL/min/1.73 ESTIMA MAGDA GFR IS code = 1092) sq m NOT ACCURATE CREATININE CLEARANCE IN PREDICTING GLOMERULAR FILTRATION RATE . ESTIMATED GFR I S NOT APPLICABLE FOR DIALYSIS PATIEN TS. CBC W/PLT COUNT & AUTO [id number] 07:44:31 Test Item Value Reference Range Interpretation Comments WHITE BLOOD CELL COUNT (BEAKER) 4.9 K/ L 3.5-10.5 (test code = 775) RED BLOOD CELL COUNT (BEAKER) 2.45 M/ L 3.93-5.22 L (test code = 761) HEMOGLOBIN (BEAKER) (test code = 8.7 GM/DL 11.2-15.7 L 410) HEMATOCRIT (BEAKER) (test code = 27.3 % 34.1-44.9 L 411) MEAN CORPUSCULAR VOLUME (BEAKER) 111.4 fL 79.4-94.8 H (test code = 753) MEAN CORPUSCULAR HEMOGLOBIN 35.5 pg 25.6-32.2 H (BEAKER) (test code = 751) MEAN CORPUSCULAR HEMOGLOBIN CONC 31.9 GM/DL 32.2-35.5 L (BEAKER) (test code = 752) RED CELL DISTRIBUTION WIDTH 18.3 % 11.7-14.4 H (BEAKER) (test code = 412) PLATELET COUNT (BEAKER) (test 112 K/CU MM 150-450 L code = 756) MEAN PLATELET VOLUME (BEAKER) 10.3 fL 9.4-12.3 (test code = 754) NEUTROPHILS RELATIVE PERCENT 43 % (BEAKER) (test code = 429) LYMPHOCYTES RELATIVE PERCENT 24 % (BEAKER) (test code = 430) MONOCYTES RELATIVE PERCENT 10 % (BEAKER) (test code = 431) EOSINOPHILS RELATIVE PERCENT 22 % (BEAKER) (test code = 432) BASOPHILS RELATIVE PERCENT 0 % (BEAKER) (test code = 437) NEUTROPHILS ABSOLUTE COUNT 2.10 K/ L 1.56-6.13 (BEAKER) (test code = 670) LYMPHOCYTES ABSOLUTE COUNT 1.17 K/ L 1.18-3.74 L (BEAKER) (test code = 414) MONOCYTES ABSOLUTE COUNT (BEAKER) 0.50 K/ L 0.24-0.36 H (test code = 415) EOSINOPHILS ABSOLUTE COUNT 1.09 K/ L 0.04-0.36 H (BEAKER) (test code = 416) BASOPHILS ABSOLUTE COUNT (BEAKER) 0.02 K/ L 0.01-0.08 (test code = 417) IMMATURE GRANULOCYTES-RELATIVE 0 % 0-1 PERCENT (BEAKER) (test code = 2801) [id number] 08:36:11 Test Item Value Reference Range Interpretation Comments MAGNESIUM (BEAKER) (test code = 1.6 mg/dL 1.6-2.6 627) COMPREHENSIVE METABOLIC [id number] 08:36:11 Test Item Value Reference Range Interpretation Comments TOTAL PROTEIN 6.3 gm/dL 6.0-8.3 (BEAKER) (test code = 770) ALBUMIN (BEAKER) 4.1 g/dL 3.5-5.0 (test code = 1145) ALKALINE PHOSPHATASE 57 U/L 40-150 (BEAKER) (test code = 346) BILIRUBIN TOTAL 0.3 mg/dL 0.2-1.2 (BEAKER) (test code = 377) SODIUM (BEAKER) (test 145 meq/L 136-145 code = 381) POTASSIUM (BEAKER) 4.5 meq/L 3.5-5.1 (test code = 379) CHLORIDE (BEAKER) 111 meq/L 98-107 H (test code = 382) CO2 (BEAKER) (test 29 meq/L 22-29 code = 355) BLOOD UREA NITROGEN 25 mg/dL 7-21 H (BEAKER) (test code = 354) CREATININE (BEAKER) 0.83 mg/dL 0.57-1.25 (test code = 358) GLUCOSE RANDOM 100 mg/dL 70-105 (BEAKER) (test code = 652) CALCIUM (BEAKER) 9.4 mg/dL 8.4-10.2 (test code = 697) AST (SGOT) (BEAKER) 21 U/L 5-34 (test code = 353) ALT (SGPT) (BEAKER) 7 U/L 6-55 (test code = 347) EGFR (BEAKER) (test 67 mL/min/1.73 ESTIMA MAGDA GFR IS code = 1092) sq m NOT ACCURATE CREATININE CLEARANCE IN PREDICTING GLOMERULAR FILTRATION RATE . ESTIMATED GFR I S NOT APPLICABLE FOR DIALYSIS PATIEN TS. CBC W/PLT COUNT & AUTO [id number] 08:30:41 Test Item Value Reference Range Interpretation Comments WHITE BLOOD CELL COUNT (BEAKER) 3.4 K/ L 3.5-10.5 L (test code = 775) RED BLOOD CELL COUNT (BEAKER) 2.37 M/ L 3.93-5.22 L (test code = 761) HEMOGLOBIN (BEAKER) (test code = 8.2 GM/DL 11.2-15.7 L 410) HEMATOCRIT (BEAKER) (test code = 26.3 % 34.1-44.9 L 411) MEAN CORPUSCULAR VOLUME (BEAKER) 111.0 fL 79.4-94.8 H (test code = 753) MEAN CORPUSCULAR HEMOGLOBIN 34.6 pg 25.6-32.2 H (BEAKER) (test code = 751) MEAN CORPUSCULAR HEMOGLOBIN CONC 31.2 GM/DL 32.2-35.5 L (BEAKER) (test code = 752) RED CELL DISTRIBUTION WIDTH 18.6 % 11.7-14.4 H (BEAKER) (test code = 412) PLATELET COUNT (BEAKER) (test code 83 K/CU MM 150-450 L = 756) MEAN PLATELET VOLUME (BEAKER) 10.5 fL 9.4-12.3 (test code = 754) NEUTROPHILS RELATIVE PERCENT 47 % (BEAKER) (test code = 429) LYMPHOCYTES RELATIVE PERCENT 31 % (BEAKER) (test code = 430) MONOCYTES RELATIVE PERCENT 16 % (BEAKER) (test code = 431) EOSINOPHILS RELATIVE PERCENT 5 % (BEAKER) (test code = 432) BASOPHILS RELATIVE PERCENT 1 % (BEAKER) (test code = 437) NEUTROPHILS ABSOLUTE COUNT 1.59 K/ L 1.56-6.13 (BEAKER) (test code = 670) LYMPHOCYTES ABSOLUTE COUNT 1.05 K/ L 1.18-3.74 L (BEAKER) (test code = 414) MONOCYTES ABSOLUTE COUNT (BEAKER) 0.54 K/ L 0.24-0.36 H (test code = 415) EOSINOPHILS ABSOLUTE COUNT 0.18 K/ L 0.04-0.36 (BEAKER) (test code = 416) BASOPHILS ABSOLUTE COUNT (BEAKER) 0.03 K/ L 0.01-0.08 (test code = 417) IMMATURE GRANULOCYTES-RELATIVE 0 % 0-1 PERCENT (BEAKER) (test code = 2801) COMPREHENSIVE METABOLIC [id number] 08:21:19 Test Item Value Reference Range Interpretation Comments TOTAL PROTEIN 6.3 gm/dL 6.0-8.3 (BEAKER) (test code = 770) ALBUMIN (BEAKER) 4.0 g/dL 3.5-5.0 (test code = 1145) ALKALINE PHOSPHATASE 45 U/L 40-150 (BEAKER) (test code = 346) BILIRUBIN TOTAL 0.4 mg/dL 0.2-1.2 (BEAKER) (test code = 377) SODIUM (BEAKER) (test 141 meq/L 136-145 code = 381) POTASSIUM (BEAKER) 4.2 meq/L 3.5-5.1 (test code = 379) CHLORIDE (BEAKER) 108 meq/L 98-107 H (test code = 382) CO2 (BEAKER) (test 29 meq/L 22-29 code = 355) BLOOD UREA NITROGEN 24 mg/dL 7-21 H (BEAKER) (test code = 354) CREATININE (BEAKER) 0.76 mg/dL 0.57-1.25 (test code = 358) GLUCOSE RANDOM 98 mg/dL 70-105 (BEAKER) (test code = 652) CALCIUM (BEAKER) 9.3 mg/dL 8.4-10.2 (test code = 697) AST (SGOT) (BEAKER) 14 U/L 5-34 (test code = 353) ALT (SGPT) (BEAKER) < U/L 6-55 (test code = 347) EGFR (BEAKER) (test 75 mL/min/1.73 ESTIMA MAGDA GFR IS code = 1092) sq m NOT ACCURATE CREATININE CLEARANCE IN PREDICTING GLOMERULAR FILTRATION RATE . ESTIMATED GFR I S NOT APPLICABLE FOR DIALYSIS PATIEN TS. [id number] 08:21:08 Test Item Value Reference Range Interpretation Comments MAGNESIUM (BEAKER) (test code = 1.5 mg/dL 1.6-2.6 L 627) CBC W/PLT COUNT & AUTO [id number] 08:01:48 Test Item Value Reference Range Interpretation Comments WHITE BLOOD CELL COUNT (BEAKER) 3.2 K/ L 3.5-10.5 L (test code = 775) RED BLOOD CELL COUNT (BEAKER) 2.37 M/ L 3.93-5.22 L (test code = 761) HEMOGLOBIN (BEAKER) (test code = 8.1 GM/DL 11.2-15.7 L 410) HEMATOCRIT (BEAKER) (test code = 26.0 % 34.1-44.9 L 411) MEAN CORPUSCULAR VOLUME (BEAKER) 109.7 fL 79.4-94.8 H (test code = 753) MEAN CORPUSCULAR HEMOGLOBIN 34.2 pg 25.6-32.2 H (BEAKER) (test code = 751) MEAN CORPUSCULAR HEMOGLOBIN CONC 31.2 GM/DL 32.2-35.5 L (BEAKER) (test code = 752) RED CELL DISTRIBUTION WIDTH 18.2 % 11.7-14.4 H (BEAKER) (test code = 412) PLATELET COUNT (BEAKER) (test 177 K/CU MM 150-450 code = 756) MEAN PLATELET VOLUME (BEAKER) 10.4 fL 9.4-12.3 (test code = 754) NEUTROPHILS RELATIVE PERCENT 51 % (BEAKER) (test code = 429) LYMPHOCYTES RELATIVE PERCENT 35 % (BEAKER) (test code = 430) MONOCYTES RELATIVE PERCENT 10 % (BEAKER) (test code = 431) EOSINOPHILS RELATIVE PERCENT 3 % (BEAKER) (test code = 432) BASOPHILS RELATIVE PERCENT 1 % (BEAKER) (test code = 437) NEUTROPHILS ABSOLUTE COUNT 1.61 K/ L 1.56-6.13 (BEAKER) (test code = 670) LYMPHOCYTES ABSOLUTE COUNT 1.12 K/ L 1.18-3.74 L (BEAKER) (test code = 414) MONOCYTES ABSOLUTE COUNT (BEAKER) 0.33 K/ L 0.24-0.36 (test code = 415) EOSINOPHILS ABSOLUTE COUNT 0.11 K/ L 0.04-0.36 (BEAKER) (test code = 416) BASOPHILS ABSOLUTE COUNT (BEAKER) 0.02 K/ L 0.01-0.08 (test code = 417) IMMATURE GRANULOCYTES-RELATIVE 0 % 0-1 PERCENT (BEAKER) (test code = 2801) [id number] 09:19:09 Test Item Value Reference Range Interpretation Comments MAGNESIUM (BEAKER) (test code = 1.3 mg/dL 1.6-2.6 L 627) COMPREHENSIVE METABOLIC [id number] 09:19:04 Test Item Value Reference Range Interpretation Comments TOTAL PROTEIN 6.2 gm/dL 6.0-8.3 (BEAKER) (test code = 770) ALBUMIN (BEAKER) 4.0 g/dL 3.5-5.0 (test code = 1145) ALKALINE PHOSPHATASE 47 U/L 40-150 (BEAKER) (test code = 346) BILIRUBIN TOTAL 0.4 mg/dL 0.2-1.2 (BEAKER) (test code = 377) SODIUM (BEAKER) (test 144 meq/L 136-145 code = 381) POTASSIUM (BEAKER) 4.1 meq/L 3.5-5.1 (test code = 379) CHLORIDE (BEAKER) 110 meq/L 98-107 H (test code = 382) CO2 (BEAKER) (test 31 meq/L 22-29 H code = 355) BLOOD UREA NITROGEN 17 mg/dL 7-21 (BEAKER) (test code = 354) CREATININE (BEAKER) 0.66 mg/dL 0.57-1.25 (test code = 358) GLUCOSE RANDOM 97 mg/dL 70-105 (BEAKER) (test code = 652) CALCIUM (BEAKER) 9.2 mg/dL 8.4-10.2 (test code = 697) AST (SGOT) (BEAKER) 15 U/L 5-34 (test code = 353) ALT (SGPT) (BEAKER) 12 U/L 6-55 (test code = 347) EGFR (BEAKER) (test 88 mL/min/1.73 ESTIMA MAGDA GFR IS code = 1092) sq m NOT ACCURATE CREATININE CLEARANCE IN PREDICTING GLOMERULAR FILTRATION RATE . ESTIMATED GFR I S NOT APPLICABLE FOR DIALYSIS PATIEN TS. CBC W/PLT COUNT & AUTO [id number] 09:04:18 Test Item Value Reference Range Interpretation Comments WHITE BLOOD CELL COUNT (BEAKER) 3.8 K/ L 3.5-10.5 (test code = 775) RED BLOOD CELL COUNT (BEAKER) 2.42 M/ L 3.93-5.22 L (test code = 761) HEMOGLOBIN (BEAKER) (test code = 8.1 GM/DL 11.2-15.7 L 410) HEMATOCRIT (BEAKER) (test code = 25.7 % 34.1-44.9 L 411) MEAN CORPUSCULAR VOLUME (BEAKER) 106.2 fL 79.4-94.8 H (test code = 753) MEAN CORPUSCULAR HEMOGLOBIN 33.5 pg 25.6-32.2 H (BEAKER) (test code = 751) MEAN CORPUSCULAR HEMOGLOBIN CONC 31.5 GM/DL 32.2-35.5 L (BEAKER) (test code = 752) RED CELL DISTRIBUTION WIDTH 17.2 % 11.7-14.4 H (BEAKER) (test code = 412) PLATELET COUNT (BEAKER) (test code 83 K/CU MM 150-450 L = 756) MEAN PLATELET VOLUME (BEAKER) 11.1 fL 9.0-12.3 (test code = 754) NEUTROPHILS RELATIVE PERCENT 58 % (BEAKER) (test code = 429) LYMPHOCYTES RELATIVE PERCENT 27 % (BEAKER) (test code = 430) MONOCYTES RELATIVE PERCENT 13 % (BEAKER) (test code = 431) EOSINOPHILS RELATIVE PERCENT 1 % (BEAKER) (test code = 432) BASOPHILS RELATIVE PERCENT 1 % (BEAKER) (test code = 437) NEUTROPHILS ABSOLUTE COUNT 2.20 K/ L 1.56-6.13 (BEAKER) (test code = 670) LYMPHOCYTES ABSOLUTE COUNT 1.04 K/ L 1.18-3.74 L (BEAKER) (test code = 414) MONOCYTES ABSOLUTE COUNT (BEAKER) 0.50 K/ L 0.24-0.36 H (test code = 415) EOSINOPHILS ABSOLUTE COUNT 0.03 K/ L 0.04-0.36 L (BEAKER) (test code = 416) BASOPHILS ABSOLUTE COUNT (BEAKER) 0.02 K/ L 0.01-0.08 (test code = 417) IMMATURE GRANULOCYTES-RELATIVE 0 % 0-1 PERCENT (BEAKER) (test code = 2801) POC-Glucose [id number] 11:27:01 Test Item Value Reference Range Interpretation Comments POC-Glucose Meter (test 191 mg/dL 70-110 H : TE STED AT [facility] code = 1538) [address] [place] [address], [facility] 30: Trimmer Operator/Techni yordy ID = [id number] for CHANG, KRIILL Lab Interpretation (test Abnormal code = 31774-8) [facility]-Glucose [id number] 11:27:01 Test Item Value Reference Range Interpretation Comments POC-Glucose Meter (test 191 mg/dL 70-110 H : TE STED AT [facility] code = 1538) [address] [place] [address], [facility] 30: Trimmer Operator/Techni yordy ID = [id number] for CHANG, KIRILL Lab Interpretation (test Abnormal code = 87766-8) [facility] [id number] 11:27:01 Test Item Value Reference Range Interpretation Comments POC-Glucose Meter (test 191 mg/dL 70-110 H : TE STED AT [facility] code = 1538) [address] [place] [address], [facility] 30: Trimmer Operator/Techni yordy ID = [id number] for CHANG, KIRILL Lab Interpretation (test Abnormal code = 32096-6) [facility] [id number] 11:27:01 Test Item Value Reference Range Interpretation Comments POC-Glucose Meter (test 191 mg/dL 70-110 H : TE STED AT [facility] code = 1538) [address] [place] [address], [facility] 30: Trimmer Operator/Techni yordy ID = [id number] for CHANG, KIRILL Lab Interpretation (test Abnormal code = 10311-7) [facility]-Glucose [id number] 11:27:01 Test Item Value Reference Range Interpretation Comments POC-Glucose Meter (test 191 mg/dL 70-110 H : TE STED AT [facility] code = 1538) [address] [place] [address], [facility] 30: Trimmer Operator/Techni yordy ID = [id number] for CHANG, KIRILL Lab Interpretation (test Abnormal code = 66871-9) [facility]-Glucose [id number] 11:27:01 Test Item Value Reference Range Interpretation Comments POC-Glucose Meter (test 191 mg/dL 70-110 H : TE STED AT [facility] code = 1538) [address] [place] [address], [facility] 30: Trimmer Operator/Techni yordy ID = [id number] for CHANG, KIRILL Lab Interpretation (test Abnormal code = 46458-1) [facility]-Glucose [id number] 11:27:01 Test Item Value Reference Range Interpretation Comments POC-Glucose Meter (test 191 mg/dL 70-110 H : TE STED AT [facility] code = 1538) [address] [place] [address], [facility] 30: Trimmer Operator/Techni yordy ID = [id number] for CHANG, KIRILL Lab Interpretation (test Abnormal code = 28679-6) [facility]-Glucose [id number] 11:27:01 Test Item Value Reference Range Interpretation Comments POC-Glucose Meter (test 191 mg/dL 70-110 H : TE STED AT [facility] code = 1538) [address] [place] [address], 770 30: Trimmer Operator/Techni yordy ID = [id number] for CHANG, KIRILL Lab Interpretation (test Abnormal code = 75634-5) [facility]-Glucose [id number] 11:27:01 Test Item Value Reference Range Interpretation Comments POC-Glucose Meter (test 191 mg/dL 70-110 H : TE STED AT [facility] code = 1538) [address] [place] [address], [facility] 30: Trimmer Operator/Techni yordy ID = [id number] for CHANG, KIRILL Lab Interpretation (test Abnormal code = 32769-3) [id number] 11:27:01 Test Item Value Reference Range Interpretation Comments POC-Glucose Meter (test 191 mg/dL 70-110 H : TE STED AT [facility] code = 1538) [address] [facility], 770 30: Trimmer Operator/Techni yordy ID = [id number] for CHANG, KIRILL Lab Interpretation (test Abnormal code = 76594-7) [facility] [id number] 11:27:01 Test Item Value Reference Range Interpretation Comments POC-Glucose Meter (test 191 mg/dL 70-110 H : TE STED AT [facility] code = 1538) [address] [facility], 770 30: Trimmer Operator/Techni yordy ID = [id number] for CHANG, KIRILL Lab Interpretation (test Abnormal code = 05591-9) [facility]-GLUCOSE [id number] 11:27:01 Test Item Value Reference Range Interpretation Comments POC-GLUCOSE METER 191 mg/dL 70-110 H : [facility] ([facility] = [facility], 1538) [address]: Trimmer Operator/Techni yordy ID = [id number] for OJ KENNETH, KIRILL POCT-GLUCOSE [id number] 07:37:37 Test Item Value Reference Range Interpretation Comments POC-GLUCOSE METER 130 mg/dL 70-110 H : TESTED A T [facility] 6720 (BEAKER) (test code = [facility] [place] [facility], 1538) [address]: Trimmer Operator/Techni yordy ID = [id number] for OJ KENNETH, KIRILL [id number] 06:29:22 Test Item Value Reference Range Interpretation Comments MAGNESIUM (BEAKER) (test code = 1.3 mg/dL 1.6-2.6 L 627) Trimmer Operator ID - IRAM [id number] 06:29:22 Test Item Value Reference Range Interpretation Comments PHOSPHORUS (BEAKER) (test code = 4.1 mg/dL 2.3-4.7 604) Trimmer Operator ID - IRAM LCOMPREHENSIVE METABOLIC [id number] 06:29:21 Test Item Value Reference Range Interpretation Comments TOTAL PROTEIN 5.0 gm/dL 6.0-8.3 L (BEAKER) (test code = 770) ALBUMIN (BEAKER) 2.8 g/dL 3.5-5.0 L (test code = 1145) ALKALINE PHOSPHATASE 50 U/L 40-150 (BEAKER) (test code = 346) BILIRUBIN TOTAL 0.3 mg/dL 0.2-1.2 (BEAKER) (test code = 377) SODIUM (BEAKER) (test 135 meq/L 136-145 L code = 381) POTASSIUM (BEAKER) 3.6 meq/L 3.5-5.1 (test code = 379) CHLORIDE (BEAKER) 95 meq/L 98-107 L (test code = 382) CO2 (BEAKER) (test 29 meq/L 22-29 code = 355) BLOOD UREA NITROGEN 18 mg/dL 7-21 (BEAKER) (test code = 354) CREATININE (BEAKER) 0.63 mg/dL 0.57-1.25 (test code = 358) GLUCOSE RANDOM 138 mg/dL 70-105 H (BEAKER) (test code = 652) CALCIUM (BEAKER) 8.3 mg/dL 8.4-10.2 L (test code = 697) AST (SGOT) (BEAKER) 14 U/L 5-34 (test code = 353) ALT (SGPT) (BEAKER) 6 U/L 6-55 (test code = 347) EGFR (BEAKER) (test 93 mL/min/1.73 ESTIMA MAGDA GFR IS code = 1092) sq m NOT ACCURATE CREATININE CLEARANCE IN PREDICTING GLOMERULAR FILTRATION RATE . ESTIMATED GFR I S NOT APPLICABLE FOR DIALYSIS PATIEN TS. Trimmer Operator ID - PIAYA LCBC W/PLT COUNT & AUTO [id number] 05:50:34 Test Item Value Reference Range Interpretation Comments WHITE BLOOD CELL COUNT (BEAKER) 10.0 K/ L 3.5-10.5 (test code = 775) RED BLOOD CELL COUNT (BEAKER) 2.75 M/ L 3.93-5.22 L (test code = 761) HEMOGLOBIN (BEAKER) (test code = 8.8 GM/DL 11.2-15.7 L 410) HEMATOCRIT (BEAKER) (test code = 26.5 % 34.1-44.9 L 411) MEAN CORPUSCULAR VOLUME (BEAKER) 96.4 fL 79.4-94.8 H (test code = 753) MEAN CORPUSCULAR HEMOGLOBIN 32.0 pg 25.6-32.2 (BEAKER) (test code = 751) MEAN CORPUSCULAR HEMOGLOBIN CONC 33.2 GM/DL 32.2-35.5 (BEAKER) (test code = 752) RED CELL DISTRIBUTION WIDTH 16.4 % 11.7-14.4 H (BEAKER) (test code = 412) PLATELET COUNT (BEAKER) (test 246 K/CU MM 150-450 code = 756) MEAN PLATELET VOLUME (BEAKER) 10.0 fL 9.4-12.3 (test code = 754) NUCLEATED RED BLOOD CELLS 0 /100 WBC 0-0 (BEAKER) (test code = 413) NEUTROPHILS RELATIVE PERCENT 75 % (BEAKER) (test code = 429) LYMPHOCYTES RELATIVE PERCENT 13 % (BEAKER) (test code = 430) MONOCYTES RELATIVE PERCENT 11 % (BEAKER) (test code = 431) EOSINOPHILS RELATIVE PERCENT 1 % (BEAKER) (test code = 432) BASOPHILS RELATIVE PERCENT 0 % (BEAKER) (test code = 437) NEUTROPHILS ABSOLUTE COUNT 7.50 K/ L 1.56-6.13 H (BEAKER) (test code = 670) LYMPHOCYTES ABSOLUTE COUNT 1.30 K/ L 1.18-3.74 (BEAKER) (test code = 414) MONOCYTES ABSOLUTE COUNT (BEAKER) 1.06 K/ L 0.24-0.36 H (test code = 415) EOSINOPHILS ABSOLUTE COUNT 0.06 K/ L 0.04-0.36 (BEAKER) (test code = 416) BASOPHILS ABSOLUTE COUNT (BEAKER) 0.01 K/ L 0.01-0.08 (test code = 417) IMMATURE GRANULOCYTES-RELATIVE 1 % 0-1 PERCENT (BEAKER) (test code = 2801) POCT-GLUCOSE [id number] 21:30:01 Test Item Value Reference Range Interpretation Comments POC-GLUCOSE METER 149 mg/dL 70-110 H : TESTED Eda Blake [facility] 6720 (BEAKER) (test code = [place], 1538) [address]: Trimmer Operator/Techni yordy ID = [id number] for Bentley Galvan POCT-GLUCOSE [id number] 17:10:01 Test Item Value Reference Range Interpretation Comments POC-GLUCOSE METER 122 mg/dL 70-110 H : TESTED A T [facility] 6720 (BEAKER) (test code = [facility] [place] [facility], 1538) 57[address]: Trimmer Operator/Techni yordy ID = [id number] for WES TRISTAN POCT-GLUCOSE [id number] 11:27:13 Test Item Value Reference Range Interpretation Comments POC-GLUCOSE METER 231 mg/dL 70-110 H : TESTED A T [facility] 6720 (BEAKER) (test code = [facility] [place] [facility], 1538) 60[address]: Trimmer Operator/Techni yordy ID = [id number] for EMERITA WELCH COMPREHENSIVE METABOLIC [id number] 08:41:43 Test Item Value Reference Range Interpretation Comments TOTAL PROTEIN 4.7 gm/dL 6.0-8.3 L (BEAKER) (test code = 770) ALBUMIN (BEAKER) 2.7 g/dL 3.5-5.0 L (test code = 1145) ALKALINE PHOSPHATASE 48 U/L 40-150 (BEAKER) (test code = 346) BILIRUBIN TOTAL 0.3 mg/dL 0.2-1.2 (BEAKER) (test code = 377) SODIUM (BEAKER) (test 135 meq/L 136-145 L code = 381) POTASSIUM (BEAKER) 3.7 meq/L 3.5-5.1 (test code = 379) CHLORIDE (BEAKER) 95 meq/L 98-107 L (test code = 382) CO2 (BEAKER) (test 29 meq/L 22-29 code = 355) BLOOD UREA NITROGEN 15 mg/dL 7-21 (BEAKER) (test code = 354) CREATININE (BEAKER) 0.67 mg/dL 0.57-1.25 (test code = 358) GLUCOSE RANDOM 129 mg/dL 70-105 H (BEAKER) (test code = 652) CALCIUM (BEAKER) 8.2 mg/dL 8.4-10.2 L (test code = 697) AST (SGOT) (BEAKER) 12 U/L 5-34 (test code = 353) ALT (SGPT) (BEAKER) 7 U/L 6-55 (test code = 347) EGFR (BEAKER) (test 86 mL/min/1.73 ESTIMA MAGDA GFR IS code = 1092) sq m NOT ACCURATE CREATININE CLEARANCE IN PREDICTING GLOMERULAR FILTRATION RATE . ESTIMATED GFR I S NOT APPLICABLE FOR DIALYSIS PATIEN TS. Trimmer Operator ID - IRAM Jesusvannesa ID [place] JUNGOCT-GLUCOSE [id number] 08:05:07 Test Item Value Reference Range Interpretation Comments POC-GLUCOSE METER 132 mg/dL 70-110 H : TESTED A T [facility] 6720 (BEAKER) (test code = [place], 1538) 57[address]: Trimmer Operator/Techni yordy ID = [id number] for EMERITA WELCH [id number] 07:32:31 Test Item Value Reference Range Interpretation Comments MAGNESIUM (BEAKER) (test code = 1.4 mg/dL 1.6-2.6 L 627) Trimmer Operator ID - IRAM [id number] 07:32:31 Test Item Value Reference Range Interpretation Comments PHOSPHORUS (BEAKER) (test code = 4.5 mg/dL 2.3-4.7 604) Trimmer Operator ID - IRAM LCBC W/PLT COUNT & AUTO [id number] 07:09:09 Test Item Value Reference Range Interpretation Comments WHITE BLOOD CELL COUNT (BEAKER) 8.8 K/ L 3.5-10.5 (test code = 775) RED BLOOD CELL COUNT (BEAKER) 2.78 M/ L 3.93-5.22 L (test code = 761) HEMOGLOBIN (BEAKER) (test code = 9.0 GM/DL 11.2-15.7 L 410) HEMATOCRIT (BEAKER) (test code = 27.5 % 34.1-44.9 L 411) MEAN CORPUSCULAR VOLUME (BEAKER) 98.9 fL 79.4-94.8 H (test code = 753) MEAN CORPUSCULAR HEMOGLOBIN 32.4 pg 25.6-32.2 H (BEAKER) (test code = 751) MEAN CORPUSCULAR HEMOGLOBIN CONC 32.7 GM/DL 32.2-35.5 (BEAKER) (test code = 752) RED CELL DISTRIBUTION WIDTH 16.1 % 11.7-14.4 H (BEAKER) (test code = 412) PLATELET COUNT (BEAKER) (test 243 K/CU MM 150-450 code = 756) MEAN PLATELET VOLUME (BEAKER) 10.2 fL 9.4-12.3 (test code = 754) NUCLEATED RED BLOOD CELLS 0 /100 WBC 0-0 (BEAKER) (test code = 413) NEUTROPHILS RELATIVE PERCENT 74 % (BEAKER) (test code = 429) LYMPHOCYTES RELATIVE PERCENT 13 % (BEAKER) (test code = 430) MONOCYTES RELATIVE PERCENT 11 % (BEAKER) (test code = 431) EOSINOPHILS RELATIVE PERCENT 1 % (BEAKER) (test code = 432) BASOPHILS RELATIVE PERCENT 0 % (BEAKER) (test code = 437) NEUTROPHILS ABSOLUTE COUNT 6.47 K/ L 1.56-6.13 H (BEAKER) (test code = 670) LYMPHOCYTES ABSOLUTE COUNT 1.17 K/ L 1.18-3.74 L (BEAKER) (test code = 414) MONOCYTES ABSOLUTE COUNT (BEAKER) 0.97 K/ L 0.24-0.36 H (test code = 415) EOSINOPHILS ABSOLUTE COUNT 0.07 K/ L 0.04-0.36 (BEAKER) (test code = 416) BASOPHILS ABSOLUTE COUNT (BEAKER) 0.01 K/ L 0.01-0.08 (test code = 417) IMMATURE GRANULOCYTES-RELATIVE 1 % 0-1 PERCENT (BEAKER) (test code = 2801) POCT-GLUCOSE [id number] 22:09:11 Test Item Value Reference Range Interpretation Comments POC-GLUCOSE METER 137 mg/dL 70-110 H : TESTED A T [facility] 6720 (BEAKER) (test code = [facility], 153) 102[address]: Trimmer Operator/Techni yordy ID = [id number] for EN GILADU, JUSTICE POCT-GLUCOSE [id number] 16:50:58 Test Item Value Reference Range Interpretation Comments POC-GLUCOSE METER 161 mg/dL 70-110 H : TESTED A T [facility] 6720 (BEAKER) (test code = [facility], 1538) 63415: Trimmer Operator/Techni yordy ID = [id number] for DI [place], [place] POCT-GLUCOSE [id number] 11:40:41 Test Item Value Reference Range Interpretation Comments POC-GLUCOSE METER 159 mg/dL 70-110 H : TESTED A T [facility] 6720 (BEAKER) (test code = [place], 1538) 89456: Trimmer Operator/Techni yordy ID = [id number] for DI [place], [place] POCT-GLUCOSE [id number] 07:25:14 Test Item Value Reference Range Interpretation Comments POC-GLUCOSE METER 152 mg/dL 70-110 H : [facility] ([facility]ER[facility] (test code = [place], 1538) 04365: Trimmer Operator/Techni yordy ID = [id number] for DI [place], [place] [id number] 06:28:41 Test Item Value Reference Range Interpretation Comments MAGNESIUM (BEAKER) (test code = 1.8 mg/dL 1.6-2.6 627) Trimmer Operator ID - KARLY [id number] 06:28:41 Test Item Value Reference Range Interpretation Comments PHOSPHORUS (BEAKER) (test code = 4.1 mg/dL 2.3-4.7 604) Trimmer Operator ID - KARLY MCOMPREHENSIVE METABOLIC [id number] 06:28:40 Test Item Value Reference Range Interpretation Comments TOTAL PROTEIN 5.4 gm/dL 6.0-8.3 L (BEAKER) (test code = 770) ALBUMIN (BEAKER) 3.1 g/dL 3.5-5.0 L (test code = 1145) ALKALINE PHOSPHATASE 55 U/L 40-150 (BEAKER) (test code = 346) BILIRUBIN TOTAL 0.4 mg/dL 0.2-1.2 (BEAKER) (test code = 377) SODIUM (BEAKER) (test 134 meq/L 136-145 L code = 381) POTASSIUM (BEAKER) 4.1 meq/L 3.5-5.1 (test code = 379) CHLORIDE (BEAKER) 95 meq/L 98-107 L (test code = 382) CO2 (BEAKER) (test 30 meq/L 22-29 H code = 355) BLOOD UREA NITROGEN 16 mg/dL 7-21 (BEAKER) (test code = 354) CREATININE (BEAKER) 0.77 mg/dL 0.57-1.25 (test code = 358) GLUCOSE RANDOM 152 mg/dL 70-105 H (BEAKER) (test code = 652) CALCIUM (BEAKER) 8.5 mg/dL 8.4-10.2 (test code = 697) AST (SGOT) (BEAKER) 15 U/L 5-34 (test code = 353) ALT (SGPT) (BEAKER) 9 U/L 6-55 (test code = 347) EGFR (BEAKER) (test 73 mL/min/1.73 ESTIMA MAGDA GFR IS code = 1092) sq m NOT ACCURATE CREATININE CLEARANCE IN PREDICTING GLOMERULAR FILTRATION RATE . ESTIMATED GFR I S NOT APPLICABLE FOR DIALYSIS PATIEN TS. Trimmer Operator ID - KARLY MCBC W/PLT COUNT & AUTO [id number] 06:13:09 Test Item Value Reference Range Interpretation Comments WHITE BLOOD CELL COUNT (BEAKER) 12.3 K/ L 3.5-10.5 H (test code = 775) RED BLOOD CELL COUNT (BEAKER) 3.11 M/ L 3.93-5.22 L (test code = 761) HEMOGLOBIN (BEAKER) (test code = 9.8 GM/DL 11.2-15.7 L 410) HEMATOCRIT (BEAKER) (test code = 29.8 % 34.1-44.9 L 411) MEAN CORPUSCULAR VOLUME (BEAKER) 95.8 fL 79.4-94.8 H (test code = 753) MEAN CORPUSCULAR HEMOGLOBIN 31.5 pg 25.6-32.2 (BEAKER) (test code = 751) MEAN CORPUSCULAR HEMOGLOBIN CONC 32.9 GM/DL 32.2-35.5 (BEAKER) (test code = 752) RED CELL DISTRIBUTION WIDTH 15.7 % 11.7-14.4 H (BEAKER) (test code = 412) PLATELET COUNT (BEAKER) (test 264 K/CU MM 150-450 code = 756) MEAN PLATELET VOLUME (BEAKER) 10.0 fL 9.4-12.3 (test code = 754) NUCLEATED RED BLOOD CELLS 0 /100 WBC 0-0 (BEAKER) (test code = 413) NEUTROPHILS RELATIVE PERCENT 79 % (BEAKER) (test code = 429) LYMPHOCYTES RELATIVE PERCENT 10 % (BEAKER) (test code = 430) MONOCYTES RELATIVE PERCENT 9 % (BEAKER) (test code = 431) EOSINOPHILS RELATIVE PERCENT 1 % (BEAKER) (test code = 432) BASOPHILS RELATIVE PERCENT 0 % (BEAKER) (test code = 437) NEUTROPHILS ABSOLUTE COUNT 9.69 K/ L 1.56-6.13 H (BEAKER) (test code = 670) LYMPHOCYTES ABSOLUTE COUNT 1.25 K/ L 1.18-3.74 (BEAKER) (test code = 414) MONOCYTES ABSOLUTE COUNT (BEAKER) 1.15 K/ L 0.24-0.36 H (test code = 415) EOSINOPHILS ABSOLUTE COUNT 0.09 K/ L 0.04-0.36 (BEAKER) (test code = 416) BASOPHILS ABSOLUTE COUNT (BEAKER) 0.01 K/ L 0.01-0.08 (test code = 417) IMMATURE GRANULOCYTES-RELATIVE 1 % 0-1 PERCENT (BEAKER) (test code = 2801) SARS-CoV2/RT-PCR (Asymptomatic ONLY)2022-03-17 01:40:54 Test Item Value Reference Range Interpretation Comments SARS-COV2/RT-PCR (test Negative Negative code = 57880-4) MICHELLE (test code = MICHELLE) Negative result for this test determines that SARS-CoV-2 RNA was not present in the specimen above the Limit of Detection (LOD). However, Negative results do not preclude SARS-CoV-2 infection and should not be used as the sole basis for treatment or patient management decisions. Negative results must be combined with clinical observations, patient history, and epidemiological information. A false negative result may occur if a specimen is improperly collected, transported, or handled. A false negative result should be considered if patient's recent exposures or clinical presentation indicate that COVID-19 (SARS-CoV-2) is likely and diagnostic tests for other causes of illness are negative. Re-testing should be considered in cases of suspected false negatives. The limit of detection for this assay is 100 copies/mL. This SARS-CoV-2 test is a real-time RT_PCR test intended for the qualitative detection of nucleic acid from SARS-CoV-2 in a nasopharyngeal swab specimen collected from individuals suspected of COVID-19 by their healthcare provider. This test has not been Food and Drug Administration (FDA) cleared or approved. This is a modified version of an approved Emergency Use Authorization (EUA) and is in the process of review by the FDA. Once authorized by the FDA, the issued EUA will be effective until the declaration that circumstances exist justifying the authorization of the emergency use of in vitro diagnostic tests for detection and/or diagnosis of COVID-19 is terminated under Section 564(b)(2) of the Act or the EUA is revoked under Section 564(g) of the Act. Testing was performed using the Moss SARS-CoV-2 assay. Fact Sheet for Healthcare Providers:https://www.palomo barfield/glo/RT SARS-CoV-2 HCP Fact Sheet 51-451037.pdf Fact Sheet for Healthcare Patients:https://www.ian matias/glo/RT SARS-CoV-2 Patient Fact Sheet EN 51-946630D4.pdf Lab Interpretation Normal (test code = 51872-0) [facility] 01:40:54 Test Item Value Reference Range Interpretation Comments SARS-COV2/RT-PCR (test Negative Negative code = 67289-4) MICHELLE (test code = MICHELLE) Negative result for this test determines that SARS-CoV-2 RNA was not present in the specimen above the Limit of Detection (LOD). However, Negative results do not preclude SARS-CoV-2 infection and should not be used as the sole basis for treatment or patient management decisions. Negative results must be combined with clinical observations, patient history, and epidemiological information. A false negative result may occur if a specimen is improperly collected, transported, or handled. A false negative result should be considered if patient's recent exposures or clinical presentation indicate that COVID-19 (SARS-CoV-2) is likely and diagnostic tests for other causes of illness are negative. Re-testing should be considered in cases of suspected false negatives. The limit of detection for this assay is 100 copies/mL. This SARS-CoV-2 test is a real-time RT_PCR test intended for the qualitative detection of nucleic acid from SARS-CoV-2 in a nasopharyngeal swab specimen collected from individuals suspected of COVID-19 by their healthcare provider. This test has not been Food and Drug Administration (FDA) cleared or approved. This is a modified version of an approved Emergency Use Authorization (EUA) and is in the process of review by the FDA. Once authorized by the FDA, the issued EUA will be effective until the declaration that circumstances exist justifying the authorization of the emergency use of in vitro diagnostic tests for detection and/or diagnosis of COVID-19 is terminated under Section 564(b)(2) of the Act or the EUA is revoked under Section 564(g) of the Act. Testing was performed using the Moss SARS-CoV-2 assay. Fact Sheet for Healthcare Providers:https://www.palomo barfield/glo/RT SARS-CoV-2 HCP Fact Sheet 51-122127.pdf Fact Sheet for Healthcare Patients:https://www.ian matias/glo/RT SARS-CoV-2 Patient Fact Sheet EN 51-151249M9.pdf Lab Interpretation Normal (test code = 24015-6) [facility]17 01:40:54 Test Item Value Reference Range Interpretation Comments SARS-COV2/RT-PCR (test Negative Negative code = 49754-7) MICHELLE (test code = MICHELLE) Negative result for this test determines that SARS-CoV-2 RNA was not present in the specimen above the Limit of Detection (LOD). However, Negative results do not preclude SARS-CoV-2 infection and should not be used as the sole basis for treatment or patient management decisions. Negative results must be combined with clinical observations, patient history, and epidemiological information. A false negative result may occur if a specimen is improperly collected, transported, or handled. A false negative result should be considered if patient's recent exposures or clinical presentation indicate that COVID-19 (SARS-CoV-2) is likely and diagnostic tests for other causes of illness are negative. Re-testing should be considered in cases of suspected false negatives. The limit of detection for this assay is 100 copies/mL. This SARS-CoV-2 test is a real-time RT_PCR test intended for the qualitative detection of nucleic acid from SARS-CoV-2 in a nasopharyngeal swab specimen collected from individuals suspected of COVID-19 by their healthcare provider. This test has not been Food and Drug Administration (FDA) cleared or approved. This is a modified version of an approved Emergency Use Authorization (EUA) and is in the process of review by the FDA. Once authorized by the FDA, the issued EUA will be effective until the declaration that circumstances exist justifying the authorization of the emergency use of in vitro diagnostic tests for detection and/or diagnosis of COVID-19 is terminated under Section 564(b)(2) of the Act or the EUA is revoked under Section 564(g) of the Act. Testing was performed using the Moss SARS-CoV-2 assay. Fact Sheet for Healthcare Providers:https://www.palomo barfield/glo/RT SARS-CoV-2 HCP Fact Sheet 51-875537.pdf Fact Sheet for Healthcare Patients:https://www.ian matias/glo/RT SARS-CoV-2 Patient Fact Sheet EN 51-834600F6.pdf Lab Interpretation Normal (test code = 17056-0) [facility]22-[facility]-17 01:40:54 Test Item Value Reference Range Interpretation Comments SARS-COV2/RT-PCR (test Negative Negative code = 76720-3) MICHELLE (test code = MICHELLE) Negative result for this test determines that SARS-CoV-2 RNA was not present in the specimen above the Limit of Detection (LOD). However, Negative results do not preclude SARS-CoV-2 infection and should not be used as the sole basis for treatment or patient management decisions. Negative results must be combined with clinical observations, patient history, and epidemiological information. A false negative result may occur if a specimen is improperly collected, transported, or handled. A false negative result should be considered if patient's recent exposures or clinical presentation indicate that COVID-19 (SARS-CoV-2) is likely and diagnostic tests for other causes of illness are negative. Re-testing should be considered in cases of suspected false negatives. The limit of detection for this assay is 100 copies/mL. This SARS-CoV-2 test is a real-time RT_PCR test intended for the qualitative detection of nucleic acid from SARS-CoV-2 in a nasopharyngeal swab specimen collected from individuals suspected of COVID-19 by their healthcare provider. This test has not been Food and Drug Administration (FDA) cleared or approved. This is a modified version of an approved Emergency Use Authorization (EUA) and is in the process of review by the FDA. Once authorized by the FDA, the issued EUA will be effective until the declaration that circumstances exist justifying the authorization of the emergency use of in vitro diagnostic tests for detection and/or diagnosis of COVID-19 is terminated under Section 564(b)(2) of the Act or the EUA is revoked under Section 564(g) of the Act. Testing was performed using the Moss SARS-CoV-2 assay. Fact Sheet for Healthcare Providers:https://www.palomo barfield/gol/RT SARS-CoV-2 HCP Fact Sheet 51-040138.pdf Fact Sheet for Healthcare Patients:https://www.ian matias/glo/RT SARS-CoV-2 Patient Fact Sheet EN 51-091267H8.pdf Lab Interpretation Normal (test code = 13921-6) [facility]17 01:40:54 Test Item Value Reference Range Interpretation Comments SARS-COV2/RT-PCR (test Negative Negative code = 22695-2) MICHELLE (test code = MICHELLE) Negative result for this test determines that SARS-CoV-2 RNA was not present in the specimen above the Limit of Detection (LOD). However, Negative results do not preclude SARS-CoV-2 infection and should not be used as the sole basis for treatment or patient management decisions. Negative results must be combined with clinical observations, patient history, and epidemiological information. A false negative result may occur if a specimen is improperly collected, transported, or handled. A false negative result should be considered if patient's recent exposures or clinical presentation indicate that COVID-19 (SARS-CoV-2) is likely and diagnostic tests for other causes of illness are negative. Re-testing should be considered in cases of suspected false negatives. The limit of detection for this assay is 100 copies/mL. This SARS-CoV-2 test is a real-time RT_PCR test intended for the qualitative detection of nucleic acid from SARS-CoV-2 in a nasopharyngeal swab specimen collected from individuals suspected of COVID-19 by their healthcare provider. This test has not been Food and Drug Administration (FDA) cleared or approved. This is a modified version of an approved Emergency Use Authorization (EUA) and is in the process of review by the FDA. Once authorized by the FDA, the issued EUA will be effective until the declaration that circumstances exist justifying the authorization of the emergency use of in vitro diagnostic tests for detection and/or diagnosis of COVID-19 is terminated under Section 564(b)(2) of the Act or the EUA is revoked under Section 564(g) of the Act. Testing was performed using the Moss SARS-CoV-2 assay. Fact Sheet for Healthcare Providers:https://www.palomo barfield/glo/RT SARS-CoV-2 HCP Fact Sheet 51-487642.pdf Fact Sheet for Healthcare Patients:https://www.ian matias/glo/RT SARS-CoV-2 Patient Fact Sheet EN 51-715767A0.pdf Lab Interpretation Normal (test code = 27685-7) [facility]17 01:40:54 Test Item Value Reference Range Interpretation Comments SARS-COV2/RT-PCR (test Negative Negative code = 11725-7) MICHELLE (test code = MICHELLE) Negative result for this test determines that SARS-CoV-2 RNA was not present in the specimen above the Limit of Detection (LOD). However, Negative results do not preclude SARS-CoV-2 infection and should not be used as the sole basis for treatment or patient management decisions. Negative results must be combined with clinical observations, patient history, and epidemiological information. A false negative result may occur if a specimen is improperly collected, transported, or handled. A false negative result should be considered if patient's recent exposures or clinical presentation indicate that COVID-19 (SARS-CoV-2) is likely and diagnostic tests for other causes of illness are negative. Re-testing should be considered in cases of suspected false negatives. The limit of detection for this assay is 100 copies/mL. This SARS-CoV-2 test is a real-time RT_PCR test intended for the qualitative detection of nucleic acid from SARS-CoV-2 in a nasopharyngeal swab specimen collected from individuals suspected of COVID-19 by their healthcare provider. This test has not been Food and Drug Administration (FDA) cleared or approved. This is a modified version of an approved Emergency Use Authorization (EUA) and is in the process of review by the FDA. Once authorized by the FDA, the issued EUA will be effective until the declaration that circumstances exist justifying the authorization of the emergency use of in vitro diagnostic tests for detection and/or diagnosis of COVID-19 is terminated under Section 564(b)(2) of the Act or the EUA is revoked under Section 564(g) of the Act. Testing was performed using the Moss SARS-CoV-2 assay. Fact Sheet for Healthcare Providers:https://www.palomo barfield/glo/RT SARS-CoV-2 HCP Fact Sheet 51-542759.pdf Fact Sheet for Healthcare Patients:https://wwwkolby matias/glo/RT SARS-CoV-2 Patient Fact Sheet EN 51-876725G7.pdf Lab Interpretation Normal (test code = 69577-7) [facility]17 01:40:54 Test Item Value Reference Range Interpretation Comments SARS-COV2/RT-PCR (test Negative Negative code = 38642-6) MICHELLE (test code = MICHELLE) Negative result for this test determines that SARS-CoV-2 RNA was not present in the specimen above the Limit of Detection (LOD). However, Negative results do not preclude SARS-CoV-2 infection and should not be used as the sole basis for treatment or patient management decisions. Negative results must be combined with clinical observations, patient history, and epidemiological information. A false negative result may occur if a specimen is improperly collected, transported, or handled. A false negative result should be considered if patient's recent exposures or clinical presentation indicate that COVID-19 (SARS-CoV-2) is likely and diagnostic tests for other causes of illness are negative. Re-testing should be considered in cases of suspected false negatives. The limit of detection for this assay is 100 copies/mL. This SARS-CoV-2 test is a real-time RT_PCR test intended for the qualitative detection of nucleic acid from SARS-CoV-2 in a nasopharyngeal swab specimen collected from individuals suspected of COVID-19 by their healthcare provider. This test has not been Food and Drug Administration (FDA) cleared or approved. This is a modified version of an approved Emergency Use Authorization (EUA) and is in the process of review by the FDA. Once authorized by the FDA, the issued EUA will be effective until the declaration that circumstances exist justifying the authorization of the emergency use of in vitro diagnostic tests for detection and/or diagnosis of COVID-19 is terminated under Section 564(b)(2) of the Act or the EUA is revoked under Section 564(g) of the Act. Testing was performed using the Moss SARS-CoV-2 assay. Fact Sheet for Healthcare Providers:https://www.palomo barfield/glo/RT SARS-CoV-2 HCP Fact Sheet 51-071208.pdf Fact Sheet for Healthcare Patients:https://www.ian bellamoss/glo/RT SARS-CoV-2 Patient Fact Sheet EN 51-426289K5.pdf Lab Interpretation Normal (test code = 19128-7) [facility] 01:40:54 Test Item Value Reference Range Interpretation Comments SARS-COV2/RT-PCR (test Negative Negative code = 16566-9) MICHELLE (test code = MICHELLE) Negative result for this test determines that SARS-CoV-2 RNA was not present in the specimen above the Limit of Detection (LOD). However, Negative results do not preclude SARS-CoV-2 infection and should not be used as the sole basis for treatment or patient management decisions. Negative results must be combined with clinical observations, patient history, and epidemiological information. A false negative result may occur if a specimen is improperly collected, transported, or handled. A false negative result should be considered if patient's recent exposures or clinical presentation indicate that COVID-19 (SARS-CoV-2) is likely and diagnostic tests for other causes of illness are negative. Re-testing should be considered in cases of suspected false negatives. The limit of detection for this assay is 100 copies/mL. This SARS-CoV-2 test is a real-time RT_PCR test intended for the qualitative detection of nucleic acid from SARS-CoV-2 in a nasopharyngeal swab specimen collected from individuals suspected of COVID-19 by their healthcare provider. This test has not been Food and Drug Administration (FDA) cleared or approved. This is a modified version of an approved Emergency Use Authorization (EUA) and is in the process of review by the FDA. Once authorized by the FDA, the issued EUA will be effective until the declaration that circumstances exist justifying the authorization of the emergency use of in vitro diagnostic tests for detection and/or diagnosis of COVID-19 is terminated under Section 564(b)(2) of the Act or the EUA is revoked under Section 564(g) of the Act. Testing was performed using the [employer] SARS-CoV-2 assay. Fact Sheet for Healthcare Providers:https://www.palomo rinaldiCardinalCommerce/glo/RT SARS-CoV-2 HCP Fact Sheet 51-430466.pdf Fact Sheet for Healthcare Patients:https://www.ian bellamoss/glo/RT SARS-CoV-2 Patient Fact Sheet EN 51-214790W8.pdf Lab Interpretation Normal (test code = 98011-7) [facility]17 01:40:54 Test Item Value Reference Range Interpretation Comments SARS-COV2/RT-PCR (test Negative Negative code = 15392-5) MICHELLE (test code = MICHELLE) Negative result for this test determines that SARS-CoV-2 RNA was not present in the specimen above the Limit of Detection (LOD). However, Negative results do not preclude SARS-CoV-2 infection and should not be used as the sole basis for treatment or patient management decisions. Negative results must be combined with clinical observations, patient history, and epidemiological information. A false negative result may occur if a specimen is improperly collected, transported, or handled. A false negative result should be considered if patient's recent exposures or clinical presentation indicate that COVID-19 (SARS-CoV-2) is likely and diagnostic tests for other causes of illness are negative. Re-testing should be considered in cases of suspected false negatives. The limit of detection for this assay is 100 copies/mL. This SARS-CoV-2 test is a real-time RT_PCR test intended for the qualitative detection of nucleic acid from SARS-CoV-2 in a nasopharyngeal swab specimen collected from individuals suspected of COVID-19 by their healthcare provider. This test has not been Food and Drug Administration (FDA) cleared or approved. This is a modified version of an approved Emergency Use Authorization (EUA) and is in the process of review by the FDA. Once authorized by the FDA, the issued EUA will be effective until the declaration that circumstances exist justifying the authorization of the emergency use of in vitro diagnostic tests for detection and/or diagnosis of COVID-19 is terminated under Section 564(b)(2) of the Act or the EUA is revoked under Section 564(g) of the Act. Testing was performed using the [employer] SARS-CoV-2 assay. Fact Sheet for Healthcare Providers:https://www.palomo rinaldimarielena/glo/RT SARS-CoV-2 HCP Fact Sheet 51-457887.pdf Fact Sheet for Healthcare Patients:https://sarah beth matias/glo/RT SARS-CoV-2 Patient Fact Sheet EN 51-028875E7.pdf Lab Interpretation Normal (test code = 01331-8) [facility]-17 01:40:54 Test Item Value Reference Range Interpretation Comments SARS-COV2/RT-PCR (test Negative Negative code = 93581-9) MICHELLE (test code = MICHELLE) Negative result for this test determines that SARS-CoV-2 RNA was not present in the specimen above the Limit of Detection (LOD). However, Negative results do not preclude SARS-CoV-2 infection and should not be used as the sole basis for treatment or patient management decisions. Negative results must be combined with clinical observations, patient history, and epidemiological information. A false negative result may occur if a specimen is improperly collected, transported, or handled. A false negative result should be considered if patient's recent exposures or clinical presentation indicate that COVID-19 (SARS-CoV-2) is likely and diagnostic tests for other causes of illness are negative. Re-testing should be considered in cases of suspected false negatives. The limit of detection for this assay is 100 copies/mL. This SARS-CoV-2 test is a real-time RT_PCR test intended for the qualitative detection of nucleic acid from SARS-CoV-2 in a nasopharyngeal swab specimen collected from individuals suspected of COVID-19 by their healthcare provider. This test has not been Food and Drug Administration (FDA) cleared or approved. This is a modified version of an approved Emergency Use Authorization (EUA) and is in the process of review by the FDA. Once authorized by the FDA, the issued EUA will be effective until the declaration that circumstances exist justifying the authorization of the emergency use of in vitro diagnostic tests for detection and/or diagnosis of COVID-19 is terminated under Section 564(b)(2) of the Act or the EUA is revoked under Section 564(g) of the Act. Testing was performed using the Moss SARS-CoV-2 assay. Fact Sheet for Healthcare Providers:https://bao barfield/glo/RT SARS-CoV-2 HCP Fact Sheet 51-423933.pdf Fact Sheet for Healthcare Patients:https://www.ian matias/glo/RT SARS-CoV-2 Patient Fact Sheet EN 51-424347R7.pdf Lab Interpretation Normal (test code = 86762-4) [facility]-17 01:40:54 Test Item Value Reference Range Interpretation Comments SARS-COV2/RT-PCR (test Negative Negative code = 27208-6) MICHELLE (test code = MICHELLE) Negative result for this test determines that SARS-CoV-2 RNA was not present in the specimen above the Limit of Detection (LOD). However, Negative results do not preclude SARS-CoV-2 infection and should not be used as the sole basis for treatment or patient management decisions. Negative results must be combined with clinical observations, patient history, and epidemiological information. A false negative result may occur if a specimen is improperly collected, transported, or handled. A false negative result should be considered if patient's recent exposures or clinical presentation indicate that COVID-19 (SARS-CoV-2) is likely and diagnostic tests for other causes of illness are negative. Re-testing should be considered in cases of suspected false negatives. The limit of detection for this assay is 100 copies/mL. This SARS-CoV-2 test is a real-time RT_PCR test intended for the qualitative detection of nucleic acid from SARS-CoV-2 in a nasopharyngeal swab specimen collected from individuals suspected of COVID-19 by their healthcare provider. This test has not been Food and Drug Administration (FDA) cleared or approved. This is a modified version of an approved Emergency Use Authorization (EUA) and is in the process of review by the FDA. Once authorized by the FDA, the issued EUA will be effective until the declaration that circumstances exist justifying the authorization of the emergency use of in vitro diagnostic tests for detection and/or diagnosis of COVID-19 is terminated under Section 564(b)(2) of the Act or the EUA is revoked under Section 564(g) of the Act. Testing was performed using the [employer] SARS-CoV-2 assay. Fact Sheet for Healthcare Providers:https://www.palomo barfield/glo/RT SARS-CoV-2 HCP Fact Sheet 51-394434.pdf Fact Sheet for Healthcare Patients:https://www.[employer]/glo/RT SARS-CoV-2 Patient Fact Sheet EN 51-613416M9.pdf Lab Interpretation Normal (test code = 47968-6) [facility]2022-03-17 01:40:54 Test Item Value Reference Range Interpretation Comments SARS-COV2/RT-PCR (test code = Negative Negative 0882013) Negative result for this test determines that SARS-CoV-2 RNA was not present in the specimen above the Limit of Detection (LOD). However, Negative results do not preclude SARS-CoV-2 infection and should not be used as the sole basis for treatment or patient management decisions. Negative results must be combined with clinical observations, patient history, and epidemiological information. A false negative result may occur if a specimen is improperly collected, transported, or handled. A false negative result should be considered if patient's recent exposures or clinical presentation indicate that COVID-19 (SARS-CoV-2) is likely and diagnostic tests for other causes of illness are negative. Re-testing should be considered in cases of suspected false negatives.The limit of detection for this assay is 100 copies/mL.This SARS-CoV-2 test is a real-time RT_PCR test intended for the qualitative detection of nucleic acid from SARS-CoV-2 in a nasopharyngeal swab specimen collected from individuals suspected of COVID-19 by their healthcare provider.This test has not been Food and Drug Administration (FDA) cleared or approved. This is a modified version of an approved Emergency Use Authorization (EUA) and is in the process of review by the FDA. Once authorized by the FDA, the issued EUA will be effective until the declaration that circumstances exist justifying the authorization of the emergency use of in vitro diagnostic tests for detection and/or diagnosis of COVID-19 is terminated under Section 564(b)(2) of the Act or the EUA is revoked under Section 564(g) of the Act.Testing was performed using [employer] SARS-CoV-2 assay.Fact Sheet for Healthcare Providers:https://www.Cartesian/glo/RT SARS-CoV-2 HCP Fact Sheet 51- 184067.pdfFact Sheet for Healthcare Patients:https://www.Cartesian/glo/RT SARS-CoV-2 Patient Fact Sheet EN 51-981784K3.pdfPOCT-GLUCOSE [id number] 21:26:47 Test Item Value Reference Range Interpretation Comments POC-GLUCOSE METER 173 mg/dL 70-110 H : TESTED A T [facility] 6720 (BEAKER) (test code = [facility], 1538) 02386: Trimmer Operator/Techni yordy ID = [id number] for Bentley Galvan POCT-GLUCOSE [id number] 17:08:36 Test Item Value Reference Range Interpretation Comments POC-GLUCOSE METER 227 mg/dL 70-110 H : TESTED A T [facility] 6720 (BEAKER) (test code = [facility], 1538) 79813: Trimmer Operator/Techni yordy ID = [id number] for DI [place], [place] POCT-GLUCOSE [id number] 11:39:41 Test Item Value Reference Range Interpretation Comments POC-GLUCOSE METER 132 mg/dL 70-110 H : TESTED A T [facility] 6720 (BEAKER) (test code = [facility], 1538) 72727: Trimmer Operator/Techni yordy ID = [id number] for DI [place], [place] POCT-GLUCOSE [id number] 07:50:44 Test Item Value Reference Range Interpretation Comments POC-GLUCOSE METER 155 mg/dL 70-110 H : TESTED A T [facility] 6720 (BEAKER) (test code = [facility], 1538) 24171: Trimmer Operator/Techni yordy ID = [id number] for DI [place], [place] [id number] 05:05:35 Test Item Value Reference Range Interpretation Comments MAGNESIUM (BEAKER) (test code = 1.8 mg/dL 1.6-2.6 627) Trimmer Operator ID - KARLY [id number] 05:05:35 Test Item Value Reference Range Interpretation Comments PHOSPHORUS (BEAKER) (test code = 3.8 mg/dL 2.3-4.7 604) Trimmer Operator ID - KARLY MCOMPREHENSIVE METABOLIC [id number] 05:05:34 Test Item Value Reference Range Interpretation Comments TOTAL PROTEIN 5.0 gm/dL 6.0-8.3 L (BEAKER) (test code = 770) ALBUMIN (BEAKER) 2.9 g/dL 3.5-5.0 L (test code = 1145) ALKALINE PHOSPHATASE 48 U/L 40-150 (BEAKER) (test code = 346) BILIRUBIN TOTAL 0.4 mg/dL 0.2-1.2 (BEAKER) (test code = 377) SODIUM (BEAKER) (test 133 meq/L 136-145 L code = 381) POTASSIUM (BEAKER) 3.9 meq/L 3.5-5.1 (test code = 379) CHLORIDE (BEAKER) 97 meq/L 98-107 L (test code = 382) CO2 (BEAKER) (test 27 meq/L 22-29 code = 355) BLOOD UREA NITROGEN 22 mg/dL 7-21 H (BEAKER) (test code = 354) CREATININE (BEAKER) 0.79 mg/dL 0.57-1.25 (test code = 358) GLUCOSE RANDOM 149 mg/dL 70-105 H (BEAKER) (test code = 652) CALCIUM (BEAKER) 8.3 mg/dL 8.4-10.2 L (test code = 697) AST (SGOT) (BEAKER) 14 U/L 5-34 (test code = 353) ALT (SGPT) (BEAKER) 7 U/L 6-55 (test code = 347) EGFR (BEAKER) (test 71 mL/min/1.73 ESTIMA MAGDA GFR IS code = 1092) sq m NOT ACCURATE CREATININE CLEARANCE IN PREDICTING GLOMERULAR FILTRATION RATE . ESTIMATED GFR I S NOT APPLICABLE FOR DIALYSIS PATIEN TS. Trimmer Operator ID - KARLY MCBC W/PLT COUNT & AUTO [id number] 04:25:48 Test Item Value Reference Range Interpretation Comments WHITE BLOOD CELL COUNT (BEAKER) 10.0 K/ L 3.5-10.5 (test code = 775) RED BLOOD CELL COUNT (BEAKER) 3.04 M/ L 3.93-5.22 L (test code = 761) HEMOGLOBIN (BEAKER) (test code = 9.6 GM/DL 11.2-15.7 L 410) HEMATOCRIT (BEAKER) (test code = 29.3 % 34.1-44.9 L 411) MEAN CORPUSCULAR VOLUME (BEAKER) 96.4 fL 79.4-94.8 H (test code = 753) MEAN CORPUSCULAR HEMOGLOBIN 31.6 pg 25.6-32.2 (BEAKER) (test code = 751) MEAN CORPUSCULAR HEMOGLOBIN CONC 32.8 GM/DL 32.2-35.5 (BEAKER) (test code = 752) RED CELL DISTRIBUTION WIDTH 15.4 % 11.7-14.4 H (BEAKER) (test code = 412) PLATELET COUNT (BEAKER) (test 231 K/CU MM 150-450 code = 756) MEAN PLATELET VOLUME (BEAKER) 10.1 fL 9.4-12.3 (test code = 754) NUCLEATED RED BLOOD CELLS 0 /100 WBC 0-0 (BEAKER) (test code = 413) NEUTROPHILS RELATIVE PERCENT 75 % (BEAKER) (test code = 429) LYMPHOCYTES RELATIVE PERCENT 13 % (BEAKER) (test code = 430) MONOCYTES RELATIVE PERCENT 10 % (BEAKER) (test code = 431) EOSINOPHILS RELATIVE PERCENT 1 % (BEAKER) (test code = 432) BASOPHILS RELATIVE PERCENT 0 % (BEAKER) (test code = 437) NEUTROPHILS ABSOLUTE COUNT 7.52 K/ L 1.56-6.13 H (BEAKER) (test code = 670) LYMPHOCYTES ABSOLUTE COUNT 1.27 K/ L 1.18-3.74 (BEAKER) (test code = 414) MONOCYTES ABSOLUTE COUNT (BEAKER) 1.00 K/ L 0.24-0.36 H (test code = 415) EOSINOPHILS ABSOLUTE COUNT 0.07 K/ L 0.04-0.36 (BEAKER) (test code = 416) BASOPHILS ABSOLUTE COUNT (BEAKER) 0.01 K/ L 0.01-0.08 (test code = 417) IMMATURE GRANULOCYTES-RELATIVE 1 % 0-1 PERCENT (BEAKER) (test code = 2801) POCT-GLUCOSE [id number] 20:52:25 Test Item Value Reference Range Interpretation Comments POC-GLUCOSE METER 160 mg/dL 70-110 H : TESTED Eda Blake [facility] 6720 (BEAKER) (test code = [facility] ID, 1538) 13105: Trimmer Operator/Techni yordy ID = [id number] for RUTH CONN POCT-GLUCOSE [id number] 17:14:11 Test Item Value Reference Range Interpretation Comments POC-GLUCOSE METER 232 mg/dL 70-110 H : TESTED A T [facility] 6720 (BEAKER) (test code = [facility], 1538) 33578: Trimmer Operator/Techni yordy ID = [id number] for WES TRISTAN POCT-GLUCOSE [id number] 11:38:11 Test Item Value Reference Range Interpretation Comments POC-GLUCOSE METER 197 mg/dL 70-110 H : TESTED A T [facility] 6720 (BEAKER) (test code = [facility], 1538) 11504: Trimmer Operator/Techni yordy ID = [id number] for Henrry Mann [id number] 08:29:20 Test Item Value Reference Range Interpretation Comments PHOSPHORUS (BEAKER) (test code = 3.4 mg/dL 2.3-4.7 604) Trimmer Operator ID - IRAM LPOCT-GLUCOSE [id number] 07:44:49 Test Item Value Reference Range Interpretation Comments POC-GLUCOSE METER 135 mg/dL 70-110 H : TESTED A T [facility] 6720 (BEAKER) (test code = [facility], 1538) 03204: Trimmer Operator/Techni yordy ID = [id number] for Irina nahidgillian Juanrosalina COMPREHENSIVE METABOLIC [id number] 07:35:09 Test Item Value Reference Range Interpretation Comments TOTAL PROTEIN 5.0 gm/dL 6.0-8.3 L (BEAKER) (test code = 770) ALBUMIN (BEAKER) 3.0 g/dL 3.5-5.0 L (test code = 1145) ALKALINE PHOSPHATASE 47 U/L 40-150 (BEAKER) (test code = 346) BILIRUBIN TOTAL 0.5 mg/dL 0.2-1.2 (BEAKER) (test code = 377) SODIUM (BEAKER) (test 132 meq/L 136-145 L code = 381) POTASSIUM (BEAKER) 3.6 meq/L 3.5-5.1 (test code = 379) CHLORIDE (BEAKER) 96 meq/L 98-107 L (test code = 382) CO2 (BEAKER) (test 26 meq/L 22-29 code = 355) BLOOD UREA NITROGEN 25 mg/dL 7-21 H (BEAKER) (test code = 354) CREATININE (BEAKER) 0.83 mg/dL 0.57-1.25 (test code = 358) GLUCOSE RANDOM 151 mg/dL 70-105 H (BEAKER) (test code = 652) CALCIUM (BEAKER) 8.1 mg/dL 8.4-10.2 L (test code = 697) AST (SGOT) (BEAKER) 13 U/L 5-34 (test code = 353) ALT (SGPT) (BEAKER) 7 U/L 6-55 (test code = 347) EGFR (BEAKER) (test 67 mL/min/1.73 ESTIMA MAGDA GFR IS code = 1092) sq m NOT ACCURATE CREATININE CLEARANCE IN PREDICTING GLOMERULAR FILTRATION RATE . ESTIMATED GFR I S NOT APPLICABLE FOR DIALYSIS PATIEN TS. Trimmer Operator ID - IRAM [id number] 07:35:09 Test Item Value Reference Range Interpretation Comments MAGNESIUM (BEAKER) (test code = 2.1 mg/dL 1.6-2.6 627) Trimmer Operator ID - IRAM LCBC W/PLT COUNT & AUTO [id number] 06:32:43 Test Item Value Reference Range Interpretation Comments WHITE BLOOD CELL COUNT (BEAKER) 11.4 K/ L 3.5-10.5 H (test code = 775) RED BLOOD CELL COUNT (BEAKER) 3.04 M/ L 3.93-5.22 L (test code = 761) HEMOGLOBIN (BEAKER) (test code = 9.6 GM/DL 11.2-15.7 L 410) HEMATOCRIT (BEAKER) (test code = 29.1 % 34.1-44.9 L 411) MEAN CORPUSCULAR VOLUME (BEAKER) 95.7 fL 79.4-94.8 H (test code = 753) MEAN CORPUSCULAR HEMOGLOBIN 31.6 pg 25.6-32.2 (BEAKER) (test code = 751) MEAN CORPUSCULAR HEMOGLOBIN CONC 33.0 GM/DL 32.2-35.5 (BEAKER) (test code = 752) RED CELL DISTRIBUTION WIDTH 15.5 % 11.7-14.4 H (BEAKER) (test code = 412) PLATELET COUNT (BEAKER) (test 223 K/CU MM 150-450 code = 756) MEAN PLATELET VOLUME (BEAKER) 10.4 fL 9.4-12.3 (test code = 754) NUCLEATED RED BLOOD CELLS 0 /100 WBC 0-0 (BEAKER) (test code = 413) NEUTROPHILS RELATIVE PERCENT 82 % (BEAKER) (test code = 429) LYMPHOCYTES RELATIVE PERCENT 8 % (BEAKER) (test code = 430) MONOCYTES RELATIVE PERCENT 9 % (BEAKER) (test code = 431) EOSINOPHILS RELATIVE PERCENT 0 % (BEAKER) (test code = 432) BASOPHILS RELATIVE PERCENT 0 % (BEAKER) (test code = 437) NEUTROPHILS ABSOLUTE COUNT 9.35 K/ L 1.56-6.13 H (BEAKER) (test code = 670) LYMPHOCYTES ABSOLUTE COUNT 0.87 K/ L 1.18-3.74 L (BEAKER) (test code = 414) MONOCYTES ABSOLUTE COUNT (BEAKER) 1.03 K/ L 0.24-0.36 H (test code = 415) EOSINOPHILS ABSOLUTE COUNT 0.04 K/ L 0.04-0.36 (BEAKER) (test code = 416) BASOPHILS ABSOLUTE COUNT (BEAKER) 0.01 K/ L 0.01-0.08 (test code = 417) IMMATURE GRANULOCYTES-RELATIVE 1 % 0-1 PERCENT (BEAKER) (test code = 2801) POCT-GLUCOSE [id number] 21:16:05 Test Item Value Reference Range Interpretation Comments POC-GLUCOSE METER 99 mg/dL 70-110 : [facility]: [facility] ([facility] = AT [facility] [address] [facility] 153) [facility], [facility] 30: Trimmer Operator/Techni yordy ID = [id number] for JC MCCONNELL POCT-GLUCOSE [id number] 16:49:45 Test Item Value Reference Range Interpretation Comments POC-GLUCOSE METER 141 mg/dL 70-110 H : [facility] (test code = [facility], 153) 91312: Trimmer Operator/Techni yordy ID = [id number] for WES TRISTAN POCT-GLUCOSE [id number] 15:18:38 Test Item Value Reference Range Interpretation Comments POC-GLUCOSE METER 209 mg/dL 70-110 H : [facility] (test code = [facility], 153) 14449: Trimmer Operator/Techni yordy ID = [id number] for LUCAS NEBRIAN Urinalysis w/Microscopic + Reflex to [id number] 15:05:48 Test Item Value Reference Range Interpretation Comments Color, UA (test code Light Yellow = 5778-6) Clarity, UA (test Clear code = 5767-9) Specific [place], UA 1.011 1.001-1.035 (test code = 5811-5) pH, UA (test code = 6.0 5.0-8.0 5803-2) Protein, UA (test 10 mg/dL Negative A code = 10532-8) Glucose, UA (test 150 mg/dL Negative A code = 365) Ketones, UA (test Negative Negative code = 2514-8) Bilirubin, UA (test Negative Negative code = 56350-0) Blood, UA (test code Trace Negative A = 87491-9) Nitrite, UA (test Negative Negative code = 5802-4) Leukocytes, UA (test Large Negative A code = 5799-2) Urobilinogen, UA 0.2 mg/dL 0.2-1.0 (test code = 82596-5) RBC, UA (test code = 3 See_Comment [Autom ated 95133-5) message] The system which generated this result transmit magda reference range : /HPF. The reference range was not used to interpret this result as normal/abnormal . WBC, UA (test code = 18 See_Comment [Autom ated 5821-4) message] The system which generated this result transmit magda reference range : /HPF. The reference range was not used to interpret this result as normal/abnormal . Bacteria, UA (test None Seen code = 38079-5) Mucus (test code = Rare 8247-9) Squam Epithel, UA See_Comment [Automate d (test code = 97356-4) messag e] The system which generated this result transmit magda reference range : /HPF. The reference range was not used to interpret this result as normal/abnormal . Crystals, Urine (test None Seen code = 94867-5) Specimen Source (test code = 2795) MICHELLE (test code = MICHELLE) Trimmer Operator ID - [auto]Trimmer Operator ID - tech Lab Interpretation Abnormal (test code = 87581-6) [facility] Culture 2022-03-14 15:05:48 Test Item Value Reference Range Interpretation Comments Color, UA (test code Light Yellow = 5778-6) Clarity, UA (test Clear code = 5767-9) Specific [place], UA 1.011 1.001-1.035 (test code = 5811-5) pH, UA (test code = 6.0 5.0-8.0 5803-2) Protein, UA (test 10 mg/dL Negative A code = 58344-9) Glucose, UA (test 150 mg/dL Negative A code = 365) Ketones, UA (test Negative Negative code = 2514-8) Bilirubin, UA (test Negative Negative code = 23599-3) Blood, UA (test code Trace Negative A = 48840-6) Nitrite, UA (test Negative Negative code = 5802-4) Leukocytes, UA (test Large Negative A code = 5799-2) Urobilinogen, UA 0.2 mg/dL 0.2-1.0 (test code = 12282-4) RBC, UA (test code = 3 See_Comment [Autom ated 34038-0) message] The system which generated this result transmit magda reference range : /HPF. The reference range was not used to interpret this result as normal/abnormal . WBC, UA (test code = 18 See_Comment [Autom ated 5821-4) message] The system which generated this result transmit magda reference range : /HPF. The reference range was not used to interpret this result as normal/abnormal . Bacteria, UA (test None Seen code = 30872-9) Mucus (test code = Rare 8247-9) Squam Epithel, UA <1 See_Comment [Automate d (test code = 47287-0) messag e] The system which generated this result transmit magda reference range : /HPF. The reference range was not used to interpret this result as normal/abnormal . Crystals, Urine (test None Seen code = 51705-6) Specimen Source (test code = 2795) MICHELLE (test code = MICHELLE) Trimmer Operator ID - [auto]Trimmer Operator ID - tech Lab Interpretation Abnormal (test code = 41666-0) [facility]-14 15:05:48 Test Item Value Reference Range Interpretation Comments Color, UA (test code Light Yellow = 5778-6) Clarity, UA (test Clear code = 5767-9) Specific Hinck[place], UA 1.011 1.001-1.035 (test code = 5811-5) pH, UA (test code = 6.0 5.0-8.0 5803-2) Protein, UA (test 10 mg/dL Negative A code = 13237-4) Glucose, UA (test 150 mg/dL Negative A code = 365) Ketones, UA (test Negative Negative code = 2514-8) Bilirubin, UA (test Negative Negative code = 92481-0) Blood, UA (test code Trace Negative A = 59501-9) Nitrite, UA (test Negative Negative code = 5802-4) Leukocytes, UA (test Large Negative A code = 5799-2) Urobilinogen, UA 0.2 mg/dL 0.2-1.0 (test code = 47400-0) RBC, UA (test code = 3 See_Comment [Autom ated 88549-7) message] The system which generated this result transmit magda reference range : /HPF. The reference range was not used to interpret this result as normal/abnormal . WBC, UA (test code = 18 See_Comment [Autom ated 5821-4) message] The system which generated this result transmit magda reference range : /HPF. The reference range was not used to interpret this result as normal/abnormal . Bacteria, UA (test None Seen code = 45994-0) Mucus (test code = Rare 8247-9) Squam Epithel, UA <1 See_Comment [Automate d (test code = 10239-5) messag e] The system which generated this result transmit magda reference range : /HPF. The reference range was not used to interpret this result as normal/abnormal . Crystals, Urine (test None Seen code = 98546-4) Specimen Source (test code = 2795) MICHELLE (test code = MICHELLE) Trimmer Operator ID - [auto]Trimmer Operator ID - tech Lab Interpretation Abnormal (test code = 09894-0) [facility] 2022-03-14 15:05:48 Test Item Value Reference Range Interpretation Comments Color, UA (test code Light Yellow = 5778-6) Clarity, UA (test Clear code = 5767-9) Specific Hinck[place], UA 1.011 1.001-1.035 (test code = 5811-5) pH, UA (test code = 6.0 5.0-8.0 5803-2) Protein, UA (test 10 mg/dL Negative A code = 40975-7) Glucose, UA (test 150 mg/dL Negative A code = 365) Ketones, UA (test Negative Negative code = 2514-8) Bilirubin, UA (test Negative Negative code = 44676-3) Blood, UA (test code Trace Negative A = 21458-9) Nitrite, UA (test Negative Negative code = 5802-4) Leukocytes, UA (test Large Negative A code = 5799-2) Urobilinogen, UA 0.2 mg/dL 0.2-1.0 (test code = 93853-3) RBC, UA (test code = 3 See_Comment [Autom ated 00072-5) message] The system which generated this result transmit magda reference range : /HPF. The reference range was not used to interpret this result as normal/abnormal . WBC, UA (test code = 18 See_Comment [Autom ated 5821-4) message] The system which generated this result transmit magda reference range : /HPF. The reference range was not used to interpret this result as normal/abnormal . Bacteria, UA (test None Seen code = 69227-1) Mucus (test code = Rare 8247-9) Squam Epithel, UA <1 See_Comment [Automate d (test code = 49235-1) messag e] The system which generated this result transmit magda reference range : /HPF. The reference range was not used to interpret this result as normal/abnormal . Crystals, Urine (test None Seen code = 69006-4) Specimen Source (test code = 2795) MICHELLE (test code = MICHELLE) Trimmer Operator ID - [auto]Trimmer Operator ID - tech Lab Interpretation Abnormal (test code = 18331-3) [facility] 2022-03-14 15:05:48 Test Item Value Reference Range Interpretation Comments Color, UA (test code Light Yellow = 5778-6) Clarity, UA (test Clear code = 5767-9) Specific Hinck[place], UA 1.011 1.001-1.035 (test code = 5811-5) pH, UA (test code = 6.0 5.0-8.0 5803-2) Protein, UA (test 10 mg/dL Negative A code = 08713-4) Glucose, UA (test 150 mg/dL Negative A code = 365) Ketones, UA (test Negative Negative code = 2514-8) Bilirubin, UA (test Negative Negative code = 08879-1) Blood, UA (test code Trace Negative A = 03217-9) Nitrite, UA (test Negative Negative code = 5802-4) Leukocytes, UA (test Large Negative A code = 5799-2) Urobilinogen, UA 0.2 mg/dL 0.2-1.0 (test code = 73201-2) RBC, UA (test code = 3 See_Comment [Autom ated 96704-2) message] The system which generated this result transmit magda reference range : /HPF. The reference range was not used to interpret this result as normal/abnormal . WBC, UA (test code = 18 See_Comment [Autom ated 5821-4) message] The system which generated this result transmit magda reference range : /HPF. The reference range was not used to interpret this result as normal/abnormal . Bacteria, UA (test None Seen code = 29545-8) Mucus (test code = Rare 8247-9) Squam Epithel, UA <1 See_Comment [Automate d (test code = 85073-4) messag e] The system which generated this result transmit magda reference range : /HPF. The reference range was not used to interpret this result as normal/abnormal . Crystals, Urine (test None Seen code = 05115-0) Specimen Source (test code = 2795) MICHELLE (test code = MICHELLE) Trimmer Operator ID - [auto]Trimmer Operator ID - tech Lab Interpretation Abnormal (test code = 26675-4) [facility] 2022-03-14 15:05:48 Test Item Value Reference Range Interpretation Comments Color, UA (test code Light Yellow = 5778-6) Clarity, UA (test Clear code = 5767-9) Specific Hinck[place], UA 1.011 1.001-1.035 (test code = 5811-5) pH, UA (test code = 6.0 5.0-8.0 5803-2) Protein, UA (test 10 mg/dL Negative A code = 86909-2) Glucose, UA (test 150 mg/dL Negative A code = 365) Ketones, UA (test Negative Negative code = 2514-8) Bilirubin, UA (test Negative Negative code = 22356-1) Blood, UA (test code Trace Negative A = 52884-0) Nitrite, UA (test Negative Negative code = 5802-4) Leukocytes, UA (test Large Negative A code = 5799-2) Urobilinogen, UA 0.2 mg/dL 0.2-1.0 (test code = 36393-4) RBC, UA (test code = 3 See_Comment [Autom ated 81809-7) message] The system which generated this result transmit magda reference range : /HPF. The reference range was not used to interpret this result as normal/abnormal . WBC, UA (test code = 18 See_Comment [Autom ated 5821-4) message] The system which generated this result transmit magda reference range : /HPF. The reference range was not used to interpret this result as normal/abnormal . Bacteria, UA (test None Seen code = 87096-8) Mucus (test code = Rare 8247-9) Squam Epithel, UA <1 See_Comment [Automate d (test code = 41637-8) messag e] The system which generated this result transmit magda reference range : /HPF. The reference range was not used to interpret this result as normal/abnormal . Crystals, Urine (test None Seen code = 04060-6) Specimen Source (test code = 2795) MICHELLE (test code = MICHELLE) Trimmer Operator ID - [auto]Trimmer Operator ID - tech Lab Interpretation Abnormal (test code = 20081-6) [facility] Culture 2022-03-14 15:05:48 Test Item Value Reference Range Interpretation Comments Color, UA (test code Light Yellow = 5778-6) Clarity, UA (test Clear code = 5767-9) Specific H[place]ck[place], UA 1.011 1.001-1.035 (test code = 5811-5) pH, UA (test code = 6.0 5.0-8.0 5803-2) Protein, UA (test 10 mg/dL Negative A code = 82111-6) Glucose, UA (test 150 mg/dL Negative A code = 365) Ketones, UA (test Negative Negative code = 2514-8) Bilirubin, UA (test Negative Negative code = 75204-4) Blood, UA (test code Trace Negative A = 31315-4) Nitrite, UA (test Negative Negative code = 5802-4) Leukocytes, UA (test Large Negative A code = 5799-2) Urobilinogen, UA 0.2 mg/dL 0.2-1.0 (test code = 55975-8) RBC, UA (test code = 3 See_Comment [Autom ated 89999-9) message] The system which generated this result transmit magda reference range : /HPF. The reference range was not used to interpret this result as normal/abnormal . WBC, UA (test code = 18 See_Comment [Autom ated 5821-4) message] The system which generated this result transmit magda reference range : /HPF. The reference range was not used to interpret this result as normal/abnormal . Bacteria, UA (test None Seen code = 88987-1) Mucus (test code = Rare 8247-9) Squam Epithel, UA See_Comment [Automate d (test code = 35839-2) messag e] The system which generated this result transmit magda reference range : /HPF. The reference range was not used to interpret this result as normal/abnormal . Crystals, Urine (test None Seen code = 24473-8) Specimen Source (test code = 2795) MICHELLE (test code = MICHELLE) Trimmer Operator ID - [auto]Trimmer Operator ID - tech Lab Interpretation Abnormal (test code = 28465-1) [facility] 2022-03-14 15:05:48 Test Item Value Reference Range Interpretation Comments Color, UA (test code Light Yellow = 5778-6) Clarity, UA (test Clear code = 5767-9) Specific H[place]ck[place], UA 1.011 1.001-1.035 (test code = 5811-5) pH, UA (test code = 6.0 5.0-8.0 5803-2) Protein, UA (test 10 mg/dL Negative A code = 17246-8) Glucose, UA (test 150 mg/dL Negative A code = 365) Ketones, UA (test Negative Negative code = 2514-8) Bilirubin, UA (test Negative Negative code = 75293-9) Blood, UA (test code Trace Negative A = 99313-3) Nitrite, UA (test Negative Negative code = 5802-4) Leukocytes, UA (test Large Negative A code = 5799-2) Urobilinogen, UA 0.2 mg/dL 0.2-1.0 (test code = 55848-3) RBC, UA (test code = 3 See_Comment [Autom ated 07513-7) message] The system which generated this result transmit magda reference range : /HPF. The reference range was not used to interpret this result as normal/abnormal . WBC, UA (test code = 18 See_Comment [Autom ated 5821-4) message] The system which generated this result transmit magda reference range : /HPF. The reference range was not used to interpret this result as normal/abnormal . Bacteria, UA (test None Seen code = 95089-3) Mucus (test code = Rare 8247-9) Squam Epithel, UA <1 See_Comment [Automate d (test code = 24520-4) messag e] The system which generated this result transmit magda reference range : /HPF. The reference range was not used to interpret this result as normal/abnormal . Crystals, Urine (test None Seen code = 17313-6) Specimen Source (test code = 2795) MICHELLE (test code = MICHELLE) Trimmer Operator ID - [auto]Trimmer Operator ID - tech Lab Interpretation Abnormal (test code = 70462-6) [facility] 2022-03-14 15:05:48 Test Item Value Reference Range Interpretation Comments Color, UA (test code Light Yellow = 5778-6) Clarity, UA (test Clear code = 5767-9) Specific Hinck[place], UA 1.011 1.001-1.035 (test code = 5811-5) pH, UA (test code = 6.0 5.0-8.0 5803-2) Protein, UA (test 10 mg/dL Negative A code = 77807-1) Glucose, UA (test 150 mg/dL Negative A code = 365) Ketones, UA (test Negative Negative code = 2514-8) Bilirubin, UA (test Negative Negative code = 39373-1) Blood, UA (test code Trace Negative A = 27237-6) Nitrite, UA (test Negative Negative code = 5802-4) Leukocytes, UA (test Large Negative A code = 5799-2) Urobilinogen, UA 0.2 mg/dL 0.2-1.0 (test code = 47117-3) RBC, UA (test code = 3 See_Comment [Autom ated 14450-1) message] The system which generated this result transmit magda reference range : /HPF. The reference range was not used to interpret this result as normal/abnormal . WBC, UA (test code = 18 See_Comment [Autom ated 5821-4) message] The system which generated this result transmit magda reference range : /HPF. The reference range was not used to interpret this result as normal/abnormal . Bacteria, UA (test None Seen code = 04783-9) Mucus (test code = Rare 8247-9) Squam Epithel, UA <1 See_Comment [Automate d (test code = 51236-2) messag e] The system which generated this result transmit magda reference range : /HPF. The reference range was not used to interpret this result as normal/abnormal . Crystals, Urine (test None Seen code = 96546-0) Specimen Source (test code = 2795) MICHELLE (test code = MICHELLE) Trimmer Operator ID - [auto]Trimmer Operator ID - tech Lab Interpretation Abnormal (test code = 15976-6) [facility] Culture 2022-03-14 15:05:48 Test Item Value Reference Range Interpretation Comments Color, UA (test code Light Yellow = 5778-6) Clarity, UA (test Clear code = 5767-9) Specific [place], UA 1.011 1.001-1.035 (test code = 5811-5) pH, UA (test code = 6.0 5.0-8.0 5803-2) Protein, UA (test 10 mg/dL Negative A code = 89866-6) Glucose, UA (test 150 mg/dL Negative A code = 365) Ketones, UA (test Negative Negative code = 2514-8) Bilirubin, UA (test Negative Negative code = 94441-0) Blood, UA (test code Trace Negative A = 71950-9) Nitrite, UA (test Negative Negative code = 5802-4) Leukocytes, UA (test Large Negative A code = 5799-2) Urobilinogen, UA 0.2 mg/dL 0.2-1.0 (test code = 95230-5) RBC, UA (test code = 3 See_Comment [Autom ated 89295-4) message] The system which generated this result transmit magda reference range : /HPF. The reference range was not used to interpret this result as normal/abnormal . WBC, UA (test code = 18 See_Comment [Autom ated 5821-4) message] The system which generated this result transmit magda reference range : /HPF. The reference range was not used to interpret this result as normal/abnormal . Bacteria, UA (test None Seen code = 80126-2) Mucus (test code = Rare 8247-9) Squam Epithel, UA <1 See_Comment [Automate d (test code = 13845-7) messag e] The system which generated this result transmit magda reference range : /HPF. The reference range was not used to interpret this result as normal/abnormal . Crystals, Urine (test None Seen code = 45739-9) Specimen Source (test code = 2795) MICHELLE (test code = MICHELLE) Trimmer Operator ID - [auto]Trimmer Operator ID - tech Lab Interpretation Abnormal (test code = 48403-9) [facility] Culture 2022-03-14 15:05:48 Test Item Value Reference Range Interpretation Comments Color, UA (test code Light Yellow = 5778-6) Clarity, UA (test Clear code = 5767-9) Specific [place], UA 1.011 1.001-1.035 (test code = 5811-5) pH, UA (test code = 6.0 5.0-8.0 5803-2) Protein, UA (test 10 mg/dL Negative A code = 36299-7) Glucose, UA (test 150 mg/dL Negative A code = 365) Ketones, UA (test Negative Negative code = 2514-8) Bilirubin, UA (test Negative Negative code = 26692-0) Blood, UA (test code Trace Negative A = 44227-2) Nitrite, UA (test Negative Negative code = 5802-4) Leukocytes, UA (test Large Negative A code = 5799-2) Urobilinogen, UA 0.2 mg/dL 0.2-1.0 (test code = 32497-4) RBC, UA (test code = 3 See_Comment [Autom ated 37253-0) message] The system which generated this result transmit magda reference range : /HPF. The reference range was not used to interpret this result as normal/abnormal . WBC, UA (test code = 18 See_Comment [Autom ated 5821-4) message] The system which generated this result transmit magda reference range : /HPF. The reference range was not used to interpret this result as normal/abnormal . Bacteria, UA (test None Seen code = 05699-3) Mucus (test code = Rare 8247-9) Squam Epithel, UA <1 See_Comment [Automate d (test code = 15619-5) messag e] The system which generated this result transmit magda reference range : /HPF. The reference range was not used to interpret this result as normal/abnormal . Crystals, Urine (test None Seen code = 92949-2) Specimen Source (test code = 2795) MICHELLE (test code = MICHELLE) Trimmer Operator ID - [auto]Trimmer Operator ID - tech Lab Interpretation Abnormal (test code = 42054-6) [facility] [id number] 15:05:48 Test Item Value Reference Range Interpretation Comments COLOR (BEAKER) (test code = 470) Light Yellow CLARITY (BEAKER) (test code = Clear 469) SPECIFIC GRAVITY UA (BEAKER) 1.011 1.001-1.035 (test code = 468) PH UA (BEAKER) (test code = 467) 6.0 5.0-8.0 PROTEIN UA (BEAKER) (test code = 10 mg/dL Negative A 464) GLUCOSE UA (BEAKER) (test code = 150 mg/dL Negative A 365) KETONES UA (BEAKER) (test code = Negative Negative 371) BILIRUBIN UA (BEAKER) (test code Negative Negative = 462) BLOOD UA (BEAKER) (test code = Trace Negative A 461) NITRITE UA (BEAKER) (test code = Negative Negative 465) LEUKOCYTE ESTERASE UA (BEAKER) Large Negative A (test code = 466) UROBILINOGEN UA (BEAKER) (test 0.2 mg/dL 0.2-1.0 code = 463) RBC UA (BEAKER) (test code = 3 /HPF 519) WBC UA (BEAKER) (test code = 18 /HPF 520) BACTERIA (BEAKER) (test code = None Seen 517) MUCUS (BEAKER) (test code = Rare 1574) SQUAMOUS EPITHELIAL (BEAKER) < /HPF (test code = 516) CRYSTALS, URINE (BEAKER) (test None Seen code = 1521) SOURCE(BEAKER) (test code = 2795) Trimmer Operator ID - [auto]Trimmer Operator ID - techPOCT-GLUCOSE [id number] 12:12:32 Test Item Value Reference Range Interpretation Comments POC-GLUCOSE METER 256 mg/dL 70-110 H : TESTED A T [facility] 6720 (BEAKER) (test code = [facility], 1538) [address]: Trimmer Operator/Techni yordy ID = [id number] for WES TRISTAN POCT-GLUCOSE [id number] 07:53:45 Test Item Value Reference Range Interpretation Comments POC-GLUCOSE METER 168 mg/dL 70-110 H : TESTED A T [facility] 6720 (BEAKER) (test code = [facility], 1538) 92661: Trimmer Operator/Techni yordy ID = [id number] for WES TRISTAN [id number] 05:08:58 Test Item Value Reference Range Interpretation Comments PHOSPHORUS (BEAKER) (test code = 2.6 mg/dL 2.3-4.7 604) Trimmer Operator ID - PIAYACOMPREHENSIVE METABOLIC [id number] 05:08:57 Test Item Value Reference Range Interpretation Comments TOTAL PROTEIN 5.1 gm/dL 6.0-8.3 L (BEAKER) (test code = 770) ALBUMIN (BEAKER) 3.1 g/dL 3.5-5.0 L (test code = 1145) ALKALINE PHOSPHATASE 41 U/L 40-150 (BEAKER) (test code = 346) BILIRUBIN TOTAL 0.5 mg/dL 0.2-1.2 (BEAKER) (test code = 377) SODIUM (BEAKER) (test 131 meq/L 136-145 L code = 381) POTASSIUM (BEAKER) 4.0 meq/L 3.5-5.1 (test code = 379) CHLORIDE (BEAKER) 95 meq/L 98-107 L (test code = 382) CO2 (BEAKER) (test 27 meq/L 22-29 code = 355) BLOOD UREA NITROGEN 26 mg/dL 7-21 H (BEAKER) (test code = 354) CREATININE (BEAKER) 0.81 mg/dL 0.57-1.25 (test code = 358) GLUCOSE RANDOM 165 mg/dL 70-105 H (BEAKER) (test code = 652) CALCIUM (BEAKER) 8.3 mg/dL 8.4-10.2 L (test code = 697) AST (SGOT) (BEAKER) 13 U/L 5-34 (test code = 353) ALT (SGPT) (BEAKER) 8 U/L 6-55 (test code = 347) EGFR (BEAKER) (test 69 mL/min/1.73 ESTIMA MAGDA GFR IS code = 1092) sq m NOT ACCURATE CREATININE CLEARANCE IN PREDICTING GLOMERULAR FILTRATION RATE . ESTIMATED GFR I S NOT APPLICABLE FOR DIALYSIS PATIEN TS. Trimmer Operator ID - [id number] 05:08:57 Test Item Value Reference Range Interpretation Comments MAGNESIUM (BEAKER) (test code = 1.7 mg/dL 1.6-2.6 627) Trimmer Operator ID - PIAYACBC W/PLT COUNT & AUTO [id number] 04:31:28 Test Item Value Reference Range Interpretation Comments WHITE BLOOD CELL COUNT (BEAKER) 10.3 K/ L 3.5-10.5 (test code = 775) RED BLOOD CELL COUNT (BEAKER) 3.06 M/ L 3.93-5.22 L (test code = 761) HEMOGLOBIN (BEAKER) (test code = 9.8 GM/DL 11.2-15.7 L 410) HEMATOCRIT (BEAKER) (test code = 28.7 % 34.1-44.9 L 411) MEAN CORPUSCULAR VOLUME (BEAKER) 93.8 fL 79.4-94.8 (test code = 753) MEAN CORPUSCULAR HEMOGLOBIN 32.0 pg 25.6-32.2 (BEAKER) (test code = 751) MEAN CORPUSCULAR HEMOGLOBIN CONC 34.1 GM/DL 32.2-35.5 (BEAKER) (test code = 752) RED CELL DISTRIBUTION WIDTH 15.5 % 11.7-14.4 H (BEAKER) (test code = 412) PLATELET COUNT (BEAKER) (test 205 K/CU MM 150-450 code = 756) MEAN PLATELET VOLUME (BEAKER) 10.2 fL 9.4-12.3 (test code = 754) NUCLEATED RED BLOOD CELLS 0 /100 WBC 0-0 (BEAKER) (test code = 413) NEUTROPHILS RELATIVE PERCENT 79 % (BEAKER) (test code = 429) LYMPHOCYTES RELATIVE PERCENT 9 % (BEAKER) (test code = 430) MONOCYTES RELATIVE PERCENT 10 % (BEAKER) (test code = 431) EOSINOPHILS RELATIVE PERCENT 0 % (BEAKER) (test code = 432) BASOPHILS RELATIVE PERCENT 0 % (BEAKER) (test code = 437) NEUTROPHILS ABSOLUTE COUNT 8.14 K/ L 1.56-6.13 H (BEAKER) (test code = 670) LYMPHOCYTES ABSOLUTE COUNT 0.92 K/ L 1.18-3.74 L (BEAKER) (test code = 414) MONOCYTES ABSOLUTE COUNT (BEAKER) 1.07 K/ L 0.24-0.36 H (test code = 415) EOSINOPHILS ABSOLUTE COUNT 0.04 K/ L 0.04-0.36 (BEAKER) (test code = 416) BASOPHILS ABSOLUTE COUNT (BEAKER) 0.01 K/ L 0.01-0.08 (test code = 417) IMMATURE GRANULOCYTES-RELATIVE 1 % 0-1 PERCENT (BEAKER) (test code = 2801) POCT-GLUCOSE [id number] 21:24:42 Test Item Value Reference Range Interpretation Comments POC-GLUCOSE METER 264 mg/dL 70-110 H : TESTED A T [facility] 6720 (BEAKER) (test code = [facility], 153) 68709: Trimmer Operator/Techni yordy ID = [id number] for Deshaun Malik POCT-GLUCOSE [id number] 17:15:12 Test Item Value Reference Range Interpretation Comments POC-GLUCOSE METER 144 mg/dL 70-110 H : TESTED A T [facility] 6720 (BEAKER) (test code = [facility], 153) 42895: Trimmer Operator/Techni yordy ID = [id number] for Henrry Mann Tissue [id number] 12:53:55 Test Item Value Reference Range Interpretation Comments Case Report (test code Surgical Pathology = 104) Report Case: [id number] Authorizing Provider: Ronaldo Owens, Collected: 03/07/2022 09:04 AM Ordering Location: [facility] Received: 03/07/2022 09:10 AM SERVICES Pathologist: Kelly Adams MD Specimens: A) - Soft Tissue, Other, right diaphragm peritoneal nodule B) - Soft Tissue, Other, omentum C) - Soft Tissue, Other, appendix D) - Soft Tissue, Other, transverse colon mesenteric nodule E) - Uterus w/Cervix, uterus,cervix,rectosigm oid ,bilateral tubes and ovaries,bladder peritoneum and pelvic peritoneum F) - Uterus w/Cervix, falciform ligament G) - Soft Tissue, Other, procto donut rings x2 DIAGNOSIS (test code = [id number] 3220) uZzEwMzNcZnRuYmpcdWMxIH tccnRmMVxlcGljOTYwMVxhb aOxVEHevYJlO6WidhcpVKeo ED2vLC3qeQpdtJIlnWMiFRC nMeImy9nxw689bEZts0tuYH KWwnkglMg3jQpbW94bo5K4C cayN34idYJlTDO8POWgKIPk kJKgTKJoFAH7REZbgRCkU3g nHMDoYM6ozeqxLVgzLBsoPR VqfOH0JELzySVkK7WpDOSkU EhdLDZwmmj8ErUyQw9lvRIz eTcyMFxwYXJkXHBsYWluXGZ mQcNdFT4rPOZVRIFWItHIVL wgUklHSFQgRElBUEhSQUdNI O8FCYILTVjwDJgOWQUBT454 HBQzmms9GSGaFFLCASoUGBq PHVSINNSEMj4GCcQRRXVCIK 6CAXXbB4jIEOVAQ3SMRD6NF WTPMJHrQ2UIH0bURODWPGcS TlNccGFyXHBhciBCLiBPTUV HXTFDVWRCSMYJBALCDQ5TKE duaDLrMQRqJoStLXkOM9ifQ 2BMGSCcG9DUJ4ZWCXIYQzBF Nu8OMXVMILIYFKCSYI5GV77 XMC0LXdOALFmDQOTDJ1SHOH 4HF9glAQHbmBOfQCElJLQQL OGLKQzUTCDPHPRSUeSTM7QJ FHh0UZRdbwi9ZFVvOUSCSOd FCIjBEUUULNCEKv7BFnMYLG MPGT0NLEJtLP6YT6nRSB4EQ LLLNRSGGEfAGDKFIKPQUw5A QBqoKPAdCuq8LtYpDCRLAdO jEJAZB4YICGDEUNzFWZJquo vrfIVmnUNrLN3iXHBMWC5RR ERBAUxbJLOTS4rJSPHJBCcA IVjVEIOED5XlR3SFI7qQO58 BIFxwYXJccGFyIEQuIFRSQU 7NRpMZS4OzJ92TP99aYT9CL 8KZRMJAPOTjKe2HPJrTHYKO PLZFL1kGTphmhEJrQKAdQaV tIENBVVRFUklaRUQgVElTU1 VXQJqMDj1PUsRJMBOQPWxMM 8nkU3OQPZHfJ7BIG4OPQKIB RiQPAz7EPNakMGLpSip7BqV kBSLAQSZBPVNZXS8SO94AZN 6EJbNAOEbSNOXDS0WGCW8PQ jYryHOkJJGwSOrmRZRwGV0i VVRFUlVTLCBDRVJWSVgsIEJ PLKQEWVTUHUMKMTxGZ4YVTG 6eMACIKIYtWW0SUL4ATLGNR GWoMQYID7CAR1fAFC5GTAFL F4zDOkwdEFLcmjMQJWQHZFP RDWMVFgiKL96QYN4hHFPKFZ KWFdIOQEIFQV1CMUCKUARLB cXYFF5RMJGFVHkRZQyoGIlU SARSDFAOZ06ZIQPCURnLIEX PLEotE2TTAUkJV16iX57NEX 2UUGDHU78QTJMVKLXTO1AVY 57XKLQaLwIWSBSMKT8PYiyj YXIgICAgICAgIEJJTEFURVJ BTCBPVkFSSUVTIEFORCBGQU gFA5EASO1fAVYWBPUacLGpH NQjQdCjPYkTS6kfQ7CKKMEu W4OBA6ZXKYXPNoUKCq3EWJU FXZRZJRQRKO6ER62QKB1CSb OFJFfAOHZKC3DQQU9PJlYmr MRkKKIpDjNdSDBvKX4VX8mY LF5ZZYOJJt5CROneN4TRRkR JTRPxY4TpSghKVPDJQxCAUE 9WQVJJRVMsIEZBTExPUElBT iBUVUJFUywgXHBhclxsaTcy MFxmaTBcbGluNzIwICAgUEV VATRNEaYURXitY51CICPKPO YUJVKiAGCUNKJSCGEPY7DXM ZCJTFYDYT5XZ9obJOJuxYxc XGxpbjAgICAgICAgIFVURVJ AKeOMBjGhK1HWNbcUWQLyeh a6NDItCPIWFTlZRZrQCHXSN HFHWz8DLyLYSGAYMV9CXUFe JS3YU5dVVP2EOBOZDLVILiL vT2DRQ6QVYCGHITioDWSzUj j6HfKhUSVHDPPVF5ZNZOJKM AJUJV4CD0foVTIcZxqrUHBk OpKmBRDFAU6OBYQTWAKTTYC CFHsVWUnPXEAbCqNLW1qDY8 VORCBPRiBBVFJPUEhJQyBFT kRPTUVUUklVTSBccGFyXHRh XgFuUN0OR06KFKYWXT6sD9h USCBMRUlPTVlPTUEgXHBhcl i3UBYgLISXZoQWXSFWV9KZZ EUgVVRFUklORSBDRVJWSVhc cGFyXHBhcmQgICAgICAgIFJ HZ2RDU0mYRP3FTGNPD8zFFd cgSYOrzLRzTO2eMOtGZN5CV oJITCPZCDPXHYPyP2XNY4sB L33NPZdAUNybLDEJYY2JGRY YO1LYYUMFXFLQFxvCFUFHH3 5TXHBhclxmaTcyMCAgIElOV q4BVnoHLqMUVUIMU80VY38E KuQADFEOFZDaKQ5ETGQBRo7 DXAbwDKOYQQUCJ30WEQVmof AtIFVOUkVNQVJLQUJMRSBDT 5uXBtnGUE4SY52QQPttUGKo YZCAJABNL8XFEQoAEVIGLlN CAy8ZXZLWOmZPDhPcT6SyOH yVAFWvHQfEDSwxMb2CIJUkT GBpEtisbXOjHBQiDEq8TZIc GFOUGh5WIO6UXYGFV5eRVks ZIR4GUgsIUpnaMP3LR3aRKN IaGuekAZOXG8KsqMVvDAJiI nNyAUFYR0JCWSTFP5wETgdZ XO4YIinBYgxgEbEBLBGCWtG yEx8KYBUYCN0XRLHkwsUwYY AgICAgQkxBRERFUiBBTkQgU DCZQrpMKMAEZvbIE21TTL7u xCUaSQSoEoXjXPjRM9wgW5S BNIBuF3AXJ5PXBXSMDqPJOi 7ALSNSVBFYWZQSDW4HK79GG T9SEoBQIJaJYNRVU0EXKP5E U6peKQZvkBNxDAMyYHCIOIQ CXi8JANIKMYcJLCXWWPeiFB eMPWKHG313AZFzvkn7JWPkP EBOAPrNIYsNVXVTFOIYIl5E DyRLNYZRID7TCONfUJFlsid wBYNtRx4wH88JV89tGONYUy VUIFJJTkdTIFgyLCBFWENJU 0lPTjpccGFyXHRhYiAtIFVO JiHLPOBKDRIMZVRPG5vQYkp PBZ9IA76GMQjgYCWuhIVdQP 4qP6TKF6FIHGuCHDkxZYKPB JWBA51ODPLEYAFSISOCYEJD ZM2OR78WCC1JNlGNCIuZJXB UI1MWOD7WW8loRRFovYLfOE WqR0rVDP7TBTSDJ6VHC0oPM TFMQUSEZNNVPVnPUL4atCQp DWWgdu76FVX2JdHsr7E8RDZ 5LHYnXOQnh4uvGCRswVHyAp EwMzNcZnRuYmpcdWMxXGRlZ tHoh5odx626vDQjw3xaBDRa ByE6kXJkNDLgeNJmP659KYL fTBstf5uzk1JgAYYhhAAoh9 W9OYGTodbchLy4vSykP12nb 8D9FcpzN0rgWRNtIMQkS8Kt FI1rRQUfRiu7TFD3CTV1TLS gXZIaI4UgEF3vVFXddTQtDD o1f3aviNqrJKXbFNE6t3txI ScgtjYgIA0cyz5hiXj1q2sm cvCjYHJcWKRgfFJQOPPhM4J rfUyvKx1mqQr7wPfaCcrmCB Q5Try3YX4tlq16iks9yJgrE DYaqabyLqV1WSoqEGHzyasj CWm6KLljQCXdyNU3YDEfyWN tT2BqKGBsYX9ygrn3INI2FH wmAXUrGcV6IAHxeNVcEEZeq BcwTYitd623OVU0PpCkKE0i K3Xne5C5aW4frVAmJDEvrWP aUwRoPDKpfy1rcTAoKTdhg6 HbRRP7toC9vDBviYJoBTOaR jB5URsrEE2nmp73RLTdVYT7 of4ibAJpzZqiffDgbHFeIXy gA5EbEFPci688LJYhE3CxIB Uou8Z5cfXhXhBzGKPhzIB3f pQ1XHIlST1mvdxkk2tvUDyc JAdcQJAmeeC5fuK9AWXgeXE fF6SnzB1mMQMvRQ1hivwfn8 pzJGM7KSfrQNUvWSI7RiLmW GAcq6Mnawh7VqMuc5ZarXIe DWhiB14yn696KRBrtxHbA6m wbGFpblxwbGFpblxmMFxmcz A8WTJqLGdnnqqmATRsGVhhZ 8daTlOwNCKuuSgbMQlss4Rm XGYxXGZzMjJcdGFiXHRhYlx 8LAMtcGCcMORfLwLlI5ollp gjCsBUPQAfg7ncC4dfkMPYj IFqB3SyOKdahwOxWUggHJxb GrLlDEt5ZO85TeWaVIHtsw6 9 SYNOPTIC REPORT (test OVARY or FALLOPIAN TUBE code = 5765) or PRIMARY PERITONEUMOVARY OR FALLOPIAN TUBE OR PRIMARY PERITONEUM - All [email or web address] Edition - Protocol posted: 07/05/2021 SPECIMEN Procedure: Total hysterectomy and bilateral salpingo-oophorectomy Procedure: Omentectomy Procedure: Peritoneal tumor debulking Hysterectomy Type: Abdominal Specimen Integrity: Not applicable Uterus Integrity: Intact TUMOR Tumor Site: Primary peritoneum Tumor Size: Cannot be determined: Largest nodular area in the omentum measured ~ 5 cm Histologic Type: High grade serous carcinoma Ovarian Surface Involvement: Present, right and left Fallopian Tube Surface Involvement: Present, right and left Other Tissue / Organ Involvement: Right ovary Other Tissue / Organ Involvement: Left ovary Other Tissue / Organ Involvement: Right fallopian tube Other Tissue / Organ Involvement: Left fallopian tube Other Tissue / Organ Involvement: Pelvic peritoneum Other Tissue / Organ Involvement: Omentum Other Tissue / Organ Involvement: Uterine serosa, pericolonic tissue, appendiceal serosa and mesoappendix Largest Extrapelvic Peritoneal Focus: Macroscopic (greater than 2 cm): Omentum Peritoneal / Ascitic Fluid Involvement: Not submitted / unknown Chemotherapy Response Score (CRS): CRS1 (no definite or minimal response) REGIONAL LYMPH NODES Regional Lymph Node Status: : Tumor present in regional lymph node(s) Number of Nodes with Metastasis Greater than 10 mm: 0 Number of Nodes with Metastasis 10 mm or Less (excluding isolated tumor cells): 1 Emery Site(s) with Tumor: Pericolonic Size of Largest Emery Metastatic Deposit: Less than: 5 mm Number of Lymph Nodes Examined: 3 Emery Site(s) Examined: Pelvic, NOS Emery Site(s) Examined: Pericolonic DISTANT METASTASIS PATHOLOGIC STAGE CLASSIFICATION (pTNM, AJCC 8th Edition) Reporting of pT, pN, and (when applicable) pM categories is based on information available to the pathologist at the time the report is issued. As per the AJCC (Chapter 1, 8th Ed.) it is the managing physician s responsibility to establish the final pathologic stage based upon all pertinent information, including but potentially not limited to this pathology report. TNM Descriptors: y (post-treatment) pT Category: pT3c pN Category: pN1a pM Category: pM1a CPT Code(s) (test code [id number] = 3357) qs2ncx3EogYZyuSIiLSmsaZ ZsmeFtce67uWJ2nG71NE5hU MPlIbI2PXRnwkO0Ngd6ZLRy OZLrqCTnG454d2led2fiwvP pqOY6kVpiXNHhfkzwPfA7QX yuMFCcaciiSTj0DAokGBLus JK6USAyeCEaM2GrQYAtZL6h wzv8ZHW7NHlfGXPaYpC8MCE wuICkDHShwAcdNMojl015CA L6UfYpHGIxdjEpbKtxuV3yJ kWyLGFGDqU2XOCzUErrCGjm IjR9BRj2NcWpRlJ8DRM2YDt rVFZnDi7jXHbiGPxqdABsNR SzBXa2EvQ7JAUljzQWEhU6N XQuTIftMUMyJA5xOZyvPVn7 JIx8XeQwOhW3KOY5STS2Cvq tVNFaDo8rRFlxDYGqwOCdLN uqIJn0UhH8OFMmqs6= GROSS DESCRIPTION b7idiDUnWIJbcOH3FaKqTWH (test code = gx7zpa2QigZZupJYcBKfysC [id number]) GoqdGaqc28eXR2rR49DI9lQ CXqNmU6VFQlvaG0Snw5AVIo SVEjgQOrI500o8rvc5urxrB viTL3AZWtMGUxX1WrSG9nZT JciXYiO86hbPQnRRE5IJVvJ AKsmPFvGLJsGQS9LEMopIOe I7dbZCTbIK9geaoqLIaxXIu xUXSgjED6OHWczVUpO3HaOU AeGXymOKJvhiy3RhGyVk3is WNahMiaXSwmUBPix4spLPHl dYLwMGR7KFwixTSdQOQvIWP jKMs7PLCgZNqskKBlEW0roZ ouHhivzPqqg5PphISfTUhwL MPlHOKhRXanGAKfI5BOWNLk BrP7HkU1QCZfKYi7SSy8XQ9 UWqCtUSJhPGR3XfJkWCLpUP b3BQblKH6YSGQ6JeS5NAw7U hD2HTMaISHgLIXoWySyLMOi JZhjLaJJycdvuRVePT1fcTr wbGFpblxmczIwIEEuIFNvZn QmXMurs5QyXSYIkEemae1aw FPvJEIwGpAyJX0cHLRdT9Sn dmVkIGZyZXNoIGZvciBpbnR pQK1zUSJkgYp9ZPSro31vtO q1RKHab99onSKpENmpLQL2b XAxVTZnjAuqoiKlwsNsAN1r DATkN2Yhs5Huc30ddnAqOuV pKXLhJLScb98hlTP7pQNaoR NzHY18oHRzUkUunnZuYJLyj n1kuF0sJGTrNSB4NI2qVLBd tRWeTXAkNyU3rDAwgXCzr3q 9mCJbGTeerXX4AZ9htyawy3 FgUfGvYZUrgzHmjaEyz6xeD H9iIBKfRHXnqBPfUUlrASL2 Zg2riYWrLFYtjwAwmzZokSG bp2SkQuQuehFnWOLbKTv0b9 inLLdbYQUdc4JdyDSrGXAFP WHjEnvzBGEttBVvHJwZh3qz vLzul4QziAVjDIgpGKIgaTP tNXbqvV3oDvIqq1bdtKy7AH hscrO8SSGpzj25SDquCMLzE 9DvO1RlLUewOLP9KWTdXjVs VWDlYW2SAhQhWJwCXLrjLsQ 1DmW7RDf6SNHHBpGtVaNtLm dgFXawPBApUYp9GCj6GBnIA zI9VNs7Jqm1WHLuXUKqBKkd XZf1DWGqWRczvVSeVUJwHKL tNOuoXXwxO94nIbIsCVDJOr YNx2P1NMHnx0S8NYjpE0ZyI XIuXHBhclxmczIwIEIuICBS WGNccTWaGZByfeKxq7YeQJf pbiBsYWJlbGVkIHdpdGggcG Q9tBTutFgwZT0hwWIyAKSrU 8Fdy2zolpLflJ3sESKpPY1t MQIfc9U4URYcp4W9FMetq1X oZXIiIGFyZSAyIHllbGxvdy UfYNO1bSWemBNdsSDor5Mor 27vuyY5dSPrGECicMYadtgp ZIDtmKB2ZlDicGDfYZCnMDY xKa69YXijALI2MGGdD65jDQ YEfHShh9WwB0yzOB9tzUTyk 7QiwXJgaIfyz9GyqDlvjoSm RXThIUSpa4NcRXkgASOqTXB dg4VugNWud4SxlJTkCInokP 06CZThtHMsz6IwZWDid15rD AXvz7LmyOPzYS5lTUCtNLNe FCejrAjjJ2Z6eOUikI4pEKP oZXJlIGlzIGFuIGFyZWEgd2 i0cPYvRG6pBRJwZGIoSKOiQ SBdAA5iUPIoMBFmjKXbhumm GVK9VVRxGGV7ZLLeN59jYQX KiZNuA2O6VTM8bcLsT8Gjo5 PjbEeeTT1wDQQyAEVdFJLkQ UKtwSAgfJZ7haBcADFjLvTu YeG1eArvFTIgZZVhNI1rXQ9 sPN0sBG66iYLtZTuqy5idyq KuCGYaBUvhTC88gXRfLYOmL MWKVNWrCXDgbzSovBs0LKEx XSI1oK7wfyCoglIog9NeuXu 3sFTaFPMnZZPkdLwju3LpQO LuxbiyOMTeV5AosRuxfkAnv 2YuYkeeKSBfExAjPgL8NGYe fJJql0EvcLR9cTYtNDJqT0O uv73vUZ2qLH0cOH95qJ0zNQ SwnFviW2QyPQAmkmKwEMMqM PA1RGwoaNQkDTG7LSInHTsu ZdLlejOtMG51CNMqmjXhx4W znFhyyaNcn2Ixgg9vwAyyku YtivYlKRLraJvoO3JcEVInk sGeLYZxDNA3PHccfZQbCQQs Ih9UFeE5KHEwPRm0pN6gMQe czpLifjVdAM63GOGwbiWng1 PnvXgljxBqk0Tsv52etfJ3w WhyRCCaMGLsraYwVHDrZ0Oq z8P8bLOmCZQmzjewZMPoUgA xiVMiURAlntriSEYsO4PrH0 QyngDodKBuXZTjlcPhb9edL FN6LNKvsTPsdBLqNcYqWfvs PMX2i4sxJPKgfJAjUFN5ATq caWQgNTEwMDIgXFxkYiBPVl KyVkYnCuT3XYdhVNUgCDv4V MgwV1WTJOTyHLQ3TKQ8QgGf AqQ5HQx4IRECGy2pFHP7WUZ 3ETRsVOJ7JpM3GSotpFCdNK xcZmwgXFxmIEFyaWFsIFxcb qY2FOYtMyPjVu1aF15siJKZ zGNppXAbDB81oTNfXwtgQAR qGyHnDMbyYaVwHi4fOvHfGL f6RYXtfI3iFg2mbZXzfJ7fN TewXoTjBBJtt3b9vOL4uWAr kCA1nHQvxGibWE3kvTUsGWQ eM5Epb4xsdhHtzV8oHUHqGC 2pOTJag1V2JISat8W0DXayv 3RoZXIiIGlzIGEgdGFuLXBp axrysP46NBT4QLDemKTuHBm 6SOr2YvDaF45wsS7cvREbV2 BuRBSxPPCvNL5jxX9pMCHnZ CBjbSBpbiBkaWFtZXRlcikg n6o3cHHyCRJzZeP7EZErUCZ 0JBNeBPXfwALbhCKiJ7sgKK UvDXUrBUSjRZ3ocZrfJV0iR TeqOAGokw9zLOSevsO2WN7m kEvnwoUbhhQos01zp6LuMHg jaTmqbLUvfLhht3NpfJO4CD 9jl9shhGLgpe3xiGwqvkJqJ O1rzA4gMDQex51uiCIgpoZ5 yJGjXZZhTN4xGJ5mVDjrVYp fNZR4EYV0LCXpgAFtu4fmxw 4gIFRoZSBhcHBlbmRpeCBpc nTmLPFuZSuwuLNgAIW9gS8c ZHKohM9pemZ1GKUuYXFfnS1 gAP16QSLhG1GdQY3doAVanA MsDAC6jFJmVMgdGcN0fEMuk Gsaw9Q8NVJeTQRcAN9syWuh e0RkgOwbEPUimAHpUXu2MzW pGLndDOd0bMCmQRrsMEFbqU J3ZTKhFMFoWA08EQDpEfRdR IogCZgjwOrsaYheE7pkHDTa HBsoKHFaWaTlhI6bUbXbrrR rUY02XCLnruHnr0AfoSdpkp WbONMrLJQ5Wc1rmNClKD3cj NArTCYms7QkeqC1QTDxDDQo v2WeMU3iBAVuBFIetYNhcI6 jkl1vnLYkRQDwstPCnmlfD0 5cDFiinZnhCQPMtrVyT0Osl XMraUozYSijgVQrV6biECAx mmauLRIuH5LuoYjosqOmn5E uJjehJKQlMtB0CJNsn5pshN EaHN5ingwzspWyhrRpDIEhR UNfXKUqvBVbE3JdNCF6qLTr SSNyICLbU0JasEYjVXNeHvI IUHTzLBXonnPadFx7GFTwub 1gjhJrVZS7yD0ptzS7wuBbz mNsdWRlIGFyZWFzIHdpdGgg gm4czXxhr0dnJVOziHMnAJD yYyBfO1PyUCeOc4dvfYiaa0 VjdGVuZFxwYXJccGFyZFxzb V1kHvOgf1yrsLy8FLwakfB3 ITHkgz42VCqvZKLuA2KmS1W tEWngBDT5ZYTaMlDlTKXeCS 0TLxZrENjMXUfwAeC5AdO2W Oi8RKPAPfXdEyAlCnggDZdj EclpJMd7CAa7BPvBUgU3FJa 7Ubw9RYjoXYGqSZgkFNz6UB IgXFxmbCBcXGYgQXJpYWwgX QomK28rImIcDDWIVzAVr8I4 FTGtv5D8NZsaW5LbLLPiQAB hclxmczIwIEQuICBSZWNlaX VfSPZzjrTkf5JpKRuuxhInB KTftIBuKFxgkXpjxXR4wZIh dUqzSP2bzWIxLXJxX2Oas0p nhvGzqS9tUWXdPK6tDHSpz4 T9TSQsf1G1CLagi2BtCBHrJ XIaMKTbKKIwmi4oiO1lCHPv HRTks8sbMWNko0T6TJAyhwA kcCOjwLPycRDbo4IklC1qPC QhOjE1YUOuDtO9UVBkBaOcv qOjZO8wHHupPD5oOTfcWJ3b DFRgTpFzF1PzZ5zoWK8qmUH xd7KadLb0pSOkISzjGCYewH 0gdT8jM4Ioe9U2lHUlJOKxb 9dhtIygo4FbbVPsEDroFNUc rHPnOMoezK8vCnCcu1ripAv 1DHfozuB2HRSziv56QRcrNO XbF9SdH1CtKLdnACY7GQHoQ bHoSCXuZL7BGgNoIWiJORgo EgB9TdJ7MWp4LLTDQfCqEwT jYnwaCBx7AFvdTIs3RUz6XB bCKkT3UKo6Yov1PupoBRJrU WqnWXm6YBXlGQdocVLcXSJx KJFlDQqrZLuuU99xQuTrTIU PWrNOdGMiwNZaqi6KTDN2cT guXHBhclxmczIwIEUuICBSZ TVuyFDaFIUupyBnp0LaZCnk biBsYWJlbGVkIHdpdGggcGF 9eTSwrWbpIJ8ejAUaXGNtF0 Vji6sbifDtuQ1jQMSaVM3hA FL7gYQpwIXvd0y1jPVrMCG5 aXgiIGlzIGEgaHlzdGVyZWN 1c558DLShAADhv2gaJ9PiaV jug1JaQ5rrYH6tiGZrs4Aba P6uWOG4IBrnZFCeOOV4TZAl D50hNEd8s2pegSulmr0sJQP iL1nxb5RrJR6pk8nwnVGtQO PaRPTsirwfSKEqpZ2cwRCeG NJnxOi9IIOrkI96XrhmcJ7t RXadeaDqDHgoDCD1rPMioYA nIAXzc6JdRXpxeQfyd6qvVB JgECUuMNX0dH5uVA7cQWX4u pHeFDV5XPDbBCpjJVufodu3 aCBhbmQgNSBjbSBpbiBkaWF cWTApydF7nUNaKZH8cXGzwT NgNJ4zi4RbmJEpeU0zSMGlR SBtZXNlbnRlcnkgZGlzcGxh yMTllCQjzRdctLMxg8BiyEU wbjPaUDPwgp81vMp1ABRhl2 N4wDRbTjAxNWxbp5Jtbj6uk WxlcyBhcmUgYWxzbyBwcmVz PE60WN3hUJJxTSMnNYMal7N ic9QkiPcgTHKcl7FoZaJpFO diJBTkxt6iSLVrsgV6EO4jj UdvviAoyhLzxFEuIE2tfT7g yoNjeTIgmX0chUevq6y9fIJ bbvMysDExLUUicnjaq1CeyR LnNe1dGXTvr20iGtOnNTrtD QAch4QjjXQsy1X1nB8dXK6r KCNrTRCpf2ifsIGqfcSblPN cW7kkXFO4lyE4yKManM1udL TgyU2nVRA4dhLbS8Msv0Brm WdiDIS0QUR8clX4aISaYGTi bWUgdmlzdWFsaXplZCBhZGh od2rbzpLuRSIRbPEnJe23KY ajlHHxr7VydaDgEQUbCLDdg 9GlFZwdXSG7koKhkuCvA7Og YJ2vJrQpMIhmmPK4RHDgDSh mBRBzq76dsgWfo3KxgNSbRk I9mYFhPaYxVNPxUSRtJIYlk UHot6UzFHldpLljkMYbaJPj CDQebhfmL48yn56xGuKxe7h jjgDoegDxa10pccNbvJz3HR exETHbBYBrCOF5rT6hIZrkt GggZmxhdHRlbmluZyBpbiB0 eILqf2qwlT0eUDNme8vdvg1 qNX7lBTwas1vxunIkYJVpID wtAJ01gXXtBURmtX6ouIhaY AWqcO0dcBVdaZTwy7DbCwRe RHVlIHRvIHRoZSBleHRlbnN hytFvNLQbXCPquzMyFO0jKH NcMFH7hUTibUMgpS7puSanQ CXlS1D2bZH2xZMgmRJohIUa eyXvpBIsJFGuNCL1oL4gBEw fTOLzORMtYYR7bpNjJRBet6 Nzj0WzLJ3zaPGkUHOwlqIPa MJcfDMlbqUpYF4ePGY8ciUh BAomVlZnhHSoPe6WFRxoQp3 eVMOaKQcRMROpRQajNHO5Hx MiH94vBOHbBAKiRItikOtgB T9wWIA8NSXvZAGnV2Bkpkd7 LR1nMMM8bjneWmObNjTrwDU rMtScH95eb6h6vYUeLSRfO7 6ki7pmiSzhx8LeK6YnlgogZ Equt3EeIJOdKBMwhKFyH4dy ZCBiaWxhdGVyYWwgYWRuZXh vOaIPjRSaG46le24wuHXcZT qrBEH2aIxpYCE4EGErOJYyt X2muCosLSB7OJB4bzQohbC3 yYMioW0xtVRthG7xMMG6zjU dP8HvYKOBbZRdSY98ZUOny1 IgdXRlcnVzIGhhcyBhbiBhd SAzC5zvRUTfxPSyJWDfHNRg ewq4k32oGMymyYuee6XwVHG gCEUmkPMklXFkFUVha9jvHG Uvs0Irl9Oih1u8pXReyIi9e MAcQSO6BY7sx5qniUBrsa0l rQhktq5aQSWeeVSdlEQvrCS dssM1jADpkaIdUCEnGNY3ET UwzGR8FHOvfwT4sgJknLKrq AP1UHGmeETqSVNbuuyem1Fx q9BxWO6cEERfODGneiZgirr erbT8qQLsmLJjAACQeZZajS RlcnVzIGlzIGJpdmFsdmVkI IkifY5kNR87UCRga0LgAN0l MTMwj4VnspzvltShGTp6RCH vbV4pDTyidKzwlTSmQJBkHN E6EROsBaBfwNHybJSgVYKbu imfi3XilFIehJV2s8N1HKNx dXRlcmluZSBjYXZpdHkuIEE onAFzN5PyiLMuSTdob2DdET NvuH15ljMihWDcoAXzYKHmL DMgeCAyLjUgeCAyIGNtIGlz LRycHY29rQSfDSKhmM3dgQo qGQYiX0w2GKT8KVZ3ysPysR O9c9X9oW0yTBNnTILcy3W0B LKdy9DmuMMgcvRxGlFBbXCi dXRlcmluZSBjYXZpdHkgaXM gdGFuLXdoaXRlIHdpdGggbX HxoNqsqPHeoKKtMF4xTPWjF IQpjHhfv7XblW91nDD3pCUw N4A9qSR4HqMJmLWxATUrqrU qGIJcNeM5MDRdN89sLOInpg B2mXs8LXPwkHMvh3RpXCYvu 9PkKytkEOItWSSwL6IwIFTc SOIga9p4uXIheWJxU2qdMOA 6wmH8sTGrd6FkIUVga5ZknC 4npPckjwLrIbH2xZJyCW2bj 53dkSQmqH5lNQCgKPYfovXw wPJ0pnv8bYHrezWiCQHfjNv qwnzcqFWigUjyQU3bQYcqMF OcmTIwtM5cARR9BVE8rqGay qBvWFD5zE7lVPVaaO7yEWvs cGxheSBhIDEuOCBjbSBteW9 tZXRyaXVtLlxwYXJccGFyIF CwMEQrCQH9UDQ8nDAbnYSrU HXgrkO1OKYgp92bcFV9kuXq EqBsNQMglUEyXtCqV08kLdm gXfXkAAMdPITzODqtq2SpPN 4gdHViZSBhbmQgYSAzLjgge EBwXwPwyZMiREUyIK96MOE6 LiAgVGhlIGZhbGxvcGlhbiB 5mPQnRNOsff6yMCUjdzF5TF 9tvXwjbtP3fJFwPT01tSThy CehWMXkoz89cIf8XLZlw4Z5 bGVzLiBJdCBpcyBzZXJpYWx noVKwSIC1zN7gOBLxtD8dVG jelMheeDHfROTkwvDxbY22C Yf5sGGiIyUmFYgoUFyjSsKq x3UwygdpqVWkr7OmnWQhn5t hpNJjBBTaHJC2sDTvXCVujZ FuIHdoaXRlIGFwcGVhcmFuY 3TfUHt9BJbaGTOmb8JpaCZe VTNtVXQyb9BoNNaeNVH3PG5 qzE8crARlwT26OHS3nIWdnM JmYWNlIHdpdGggbXVsdGlwb XGydXNiHOa5mLMdjWggd4ao yXFdIEcjfBXtHIahm9znupO oIEONmhNaDNPkvbx2nLTuPB RufqP0vqVrbGUkiZ5utXBah HRdooPcJravSG6rsYXxZAzr teXcGIwhKXIsJ0s5BMPokvG 5CWEucyDqd3Euh7EfjG8mMQ SatcNmCkUXnZLdfhYag4KxN CBlbWJlZGRlZCBpbiBhZGhl i5tasfXsBL3tOWKbhef0o00 ydX3cDC8mRQNluoWvj6AxAV 6yFQWfOBW1tVNpzFNxVEMmR AG3UTTqRXNkSUVjhEnrrPbw awD9oZCaPBZhPDAflpWtuyQ blZXnDRJwxZAzrniuOG94OA xyTQJdpBJmOY4yJCEcUKKrI NZwOCVtvS4wLCUhTEmtT5Ec FT12qk6iSAThtezfuYKyJLS 8zU2ixcKjakWpuTJqCa8vpK HkVTItLOPtd1ylcYesII54J AEvHS6yjRMfLC4mzCllGPPh llPxhKCtGHStwDY5kF8wVFC vPJGlAAUuVTsyb4bvxnJrUQ LcqHxzxSoolkZ4jVJzSZh2m HJiLHQoFEMeo9afsF7eQBVo ZMSneITzn9BeWoOcFQRkQvR 8mLYem1EoucizoZEvwTQvBD Vaeccuc7o7uINwSDmkpGB5F Q2stnixR9B8TSJ9rbUrW8Fn LM0rKO8qEGnqNI12qDUrGJR qGNJox3PrdRRirVJ7FGPrJe PjYBvdPJEvbXbnpHgchsH8d WNtMZNmxFMcizHeS06vpc4v vZBlUHFwnoM5iMEhKNGzZBW sh43vVJCuBJR0iNQrFqnrCd KdYSLannUjy4HjL6Qdg1Mvp SBpZGVudGlmaWFibGUuICBU wFCal8Pjx2RjGYdxZZUxkc9 skZ0qMAtwrXqfpRRvHDajiS QtKY0tGBFlCFZwUW3sEQZcS SWpxC1podThutZvgW1iw5oa tP4dEAXvklRZJDMlKATlxmZ dnYl7EVZnUDH6jH6ekoPjey Wco8NmjWv3gVJhLpYPxI59q 1sxXKNcymKazzAwiPUoFG9q z1HwhHocLSCsWDGndBPkLbN ozFHpGTLmqyYVvjjfW12hBB gvCMstLGOcR4ThcwhzXCNwq 3SpaYWeq0rakkljTA8rymtk qlrfbK9kNXXboPSonVKebKh vAPgsE49yz49wFpXySKRgoM 5ccGFyIEdyZWVuLWFudGVya K0cDCA3CQQ7p0tfiA4tAKGh JZAsFTObe0RhshrjsnVtDRK 3mHsivRUnZICfrgMKHJP6jS 6yLMIoCQN3TVtmxoBtJVIxg OEtjDqrAMzoP64by77pFaTf TCXduP5tpFisCXZDTr3fpTQ 1IShaY64uq47zJrGfCBPilP 5izCCbOLUoOMMnzWAwo9Xgv CW6wWFeECOdN3Idq36zh4Ik y9qxpV3xAHNkh3ljuxxbiW3 fNUU8XNB8XLI0lAcfuUoiD5 siEMUdZQYnQ1Dof17gy5YxZ W00TCJqd6CfzSIkslWbRILv byLFMNDhBYYkIAT0lGnhjTg pW5idSIQqQGLuD1Jcb51vw8 GdzI0iyGBrlR1mSXT7WEY1x oA8eEFgOGQdrDEaON72HLGi p0DbKSGxfrFQTHDqELM5JWK bOXm2mQ6lFHydTsXjlL51yU vvb06na6Xus7EizWozgeZcG sSim1S2CTGag6EwoIReasYp IHdpdGggYWRoZXJlbnQgYm9 6KItshNPtYGZtQn7pACI7fw J9gAL5UWYwiF2cfMVkyR3hv N9ecQMsqZ6sCRX7WHK2u7bf NWRrOED0GIWbtHXcw7ObsKK 5uOUeECZmA8Gmm63ri4LhYL 54RCArw7FkV7Ksppz4WCliw kPmILJ5HIYzoCWsr8JfgDO7 lQVqWMUfI9Adj29zr7AyzQ4 xuIDrsG4mDIXvvjEspDziPN LkFXQiXFDoxUWzp3IdeSU1l JMgXIFwP3Xby35nZY9tJJkj PvTnBeTvqK9ugBAcTKB6UgL uKT5wWNMbiQYywUWaUfycBM Z6UYDfcEyrKEWYKsJkFRJjX TouIjUyp4TczzgzPfbrRDO9 PJAniQPsAAToCa7dUT5rKGG nOFH5YO9ah2rxaugxLUOhZF PuJYmbfxQdJEU1CUBoL4k1V YHcsSfzfWklppJ1hMFbEJWt RUNjw0FktRPnQNMhcQ0ufmg hAVjxeeIeMAF2TXGnBgTkiU dodCBvdmFyeSBzZXJpYWxse BHoRTO2aZ4cAXYfJWQtSI8G NvLgEZ5dMXVTMdItViVjILN zRGWurlBbL0VluLCby9DoeU gudjMeHNGfvgSFKeGdZEX7I CYfb3LdFvdtNZPaeHHnuJ2t roTdDYYoMHZnX1m7XA74DOZ 5EISpcxJEQvAfVHP6HJKnng 97iSz9BCIzx5M8bEPdIP0wS JTvxkc7i81tvR1mtHPcENHr PU7ao9Z5fEMnhL6veHHdiLV nbgS1uFZdoGAkIGY3EB8RGJ OqDuxqZWBrptIaPEMzIUK2p V5bKKtdoFwawRVqVEyjoBCb YR3rPWTsPRYlsOHgQKTufmF VIWhaAUKgD4AlR8BtgvEvlE KcOTWgbrAxq2wbGWV1EBByj HQogBYaEmLdArguRLR5m4di ZZCntABjGZZ0OMotsJRwMCK wMDIgXFxkYiBPVlIgIiBaUj Z8SAswDPXhZMz2VNucP2LYN FBhARD1XHW2FDEpTdS9FTt1 JWKZHr6dXES6XVZ3Qky3KPE 0LoI4RCraeIRlYBloHfswGS swVZMzwVLfOLrwokS1EDVpI pZwYd0eSJShenExZUmpJ0Dm hjv1RzblEEUtCfHlGPkkGbF yKp3aHyRxUVg2DQWfxA3hFg 2iiTYtvN3obMEoEJprFSO9d SMrWXNvwRxzggNqseLzQI9y RWDqT6Skn5Ylb86jesAtSzI xCRYfKHYlNzYaL2crq4EvVF jyP3PzCZ54RjChnlWyCVdtc HT8YBkbIN99XJMoERJexi4h oN1tIZSehJA9iRJxXZCwzRq nP7Lqy1Vyf18wiVA1vKQloN Yjo3h8zPDmtpBenGNsE8bcA TJugMRsiWOqMphdxr35kpEr jWMqDDXoNuB7bFUjgJBnbWF uu5GbyL7kTMRjMoE0VAWlNl 6aYFQzITFnpGJezz6voVNxy XLhRJTvSEstDUNjn968bFU4 rFFaFC5dHHztg6RqeYuovQG zixGtGvdaYlqpBI8bWWRcLX FvVIINvMKqOGx0TCFzGCocd 3VyZmFjZSBpcyBpbmtlZCBh ryCxj2AmM5wtLC0bkFZvd6H afUFggHnxl1OftHqenbGsHZ QdSIBhd9YkCMsfXBE1MFstt 6jtJdW6xLcwS7F3MNJ9gvHp G1LrQI4oKYSvgRVxOWrfzNI kBXYoUfGwwIUobt5oeXdqPL 3kMKM3phgiJeY1HhMzeEIbH yHxcIWdHdXxU47eHSFNZXAc AHHtnrThsDx9MEGhFEZ3rO1 zilZsapZzm9PgqQp5tSKcDd LvfFPhWANascPOpzseD54tY GkyxPyjZDFNgNMpIUS5rMZj wsIqKHD2lrCxQ0TepUOtSPN lrmLPFVP6pW2gRCYkKBS7EX SphqHDFN7MVEaqquDxkkJsF S91GXBqqiJpe9QypVvgbxEy z0GpqVbgp1OqFZUuHWbrP9p 8ZAXdfTquAZAjzn90yNc4HV Nuk7N0hNLkkRCqVUJ4KmKME BFsvFyydtUqGNLrxYHcm9Kc kAP5bBZpXUUbJ9Vlv09mJY7 uML8rZKA6JDXjuLGwr8CvUZ Epb1G3HIfxDZSeQ0DsN9Azt zGwwITiVCIkqgVrk7pdSSV7 XHNsbXVsdDBcZnMxNlxwYXJ 7m2jsHTLunKHwHSP9CPjidK QgNTEwMDIgXFxkYiBPVlIgI wEgMlS8BXtbJSUsWWm9YJwa T0RLLTAfKCE9MUVbOVh4HbD 7AAk2YFAHTl1yZTW5GzP3SZ sdGAM6PwN5BOomtYHeGFwzS mwgXFxmIEFyaWFsIFxcbmN9 JQZpKnIiE6ItEPtnJFDpYxD qEOiql6TwBUPMcVfyfl9ioU AxPTVrWpNbPl8kEHZdC5Grl nKcTFvjADKcfo2jxJrfZDav XcHcMIYbj0o0aVMgVQRbSH6 0W0PrthMmCYzyGILrZEIjbG 4iXH66mELkwqBzqtXsFmZdA xLxrAazr2WwNPVkuArvhhQs YXJlIDIgdGFuLXBpbmsgdW5 bdqymeyVpXUIedR5yyOYdJJ leNN54hbQwPjYra1rjfbykI KVbp1I6BDSpTUSlqGTxgeku Kp82TYrcBM50HGbsEIQuguY lGE92LBktXO26IOqaOZLwdK 9oCWLfSEFmaVAca3RlqPXsu XEaTXXsoypox8u3aKWselRy ANBlh79bGoItJi6jjWNfp6Y zIGFyZSBpZGVudGlmaWVkLi DcV1SiA3naPC5adOTsz1Suq Uf7mPMuLUuoXKBqjF5hbI0n D5Ccf4C2mCMbRxHpEcHsSDU kysuwQKUgPqM8RFHvuOYxBN A9JE4bxUrvQYFbG0AiY1Scm dO6PVEzsc0= INTRAOPERATIVE z1kwmQChQGWviNRAGEElKgb CONSULTATION (test qocHzCSCbaILmQ5KacwilWV code = [id number]) hrHJ1qYC7qcKedwVQzhQQoT P2FSDIjZgAbNUZnxZYknzFv HlRwOEPdsZFgtGD1OIEyFE6 ucygtBBsuUCqeMMTgmcV1IY LfyMDiS9HoHUFlKV3kuqkiB TP8RWeuqM1usxTMUjblUu9l dHRibHtcZjFcZmNoYXJzZXQ aJCLztVhbHDAvJGl5xQ7FUb crPWP4UIJKZbzlVZSoCA2Og 0fuDEUpkNEnKFL2HObniTLv OFHyHGIcDTr4XBGnFQvpeCX cOF6hyZehNnkdfVvwe3KyfP BcXGlkIDUxMDAyIFxcZGIgI C1AQeTuFEyNEJjjAdV3PsL4 HIp8WNJQHyIbXhFiAjavIHJ 0VvodCZe7MRm4OPaETbJ0CQ aoUlUsEpAlQLMmGWomBHv6R DIgXFxmIEFyaWFsIFxcZmwg AHnjJ65pcZmubF5eBT8yW80 juSGIhKEknITiGA44dSJeBh omERGfBLdbIBJgO10oh0XQm 5BdPP2GNTw5vdRmjyygbJ3r AJCtgxLbTOmlfBVzD3scOcF qXSEOD1OmBiRdPWnBUFeLBH dNLCBSSUdIVCwgUEVSSVRPT hIYBMAKQ6BLZXWeLWCVC5dI CT0ZOvwqkB5gYMWeYWRqQIM rKKVsF6IQPElUOG4VHdZOSQ YzKl6KZGDKKToFM9DFADBoF 0GmG9QJS9zTN39UZwAvDR3J RSBUSVNTVUUgUkVRVUVTVEV EXHBhciANClxwYXIgDQpSZX S1qTEqNDWvpJ7vbHNtPQZiO XWaSsMWj4Q0RKxixqYueOU6 TlCqUQICUYivuAtjdJ0dZXO gT07hj7LKl4SeLDEtBQlfl3 fzdLlzg4SbiEVnKXvhQBGxr QUeODchrZ0mKmXzv2qwiWd8 SAxgseB2XFBskd2AZknfdO5 oIpPxy2lhoNd2UNXZMbohak U0w0nxvDtyy5XcvEXzBP4US n0= MICROSCOPIC f9ptwVRyOSKwzPG2WcJzMNF DESCRIPTION (test code tk6hgl9QixNZcaSGnPDhlhY = 3371) YcbfQwnf05rMM7aE19OV1nF ACjMgM1TRCtduS8Ynf0ZYXj INKkqHNrC683g8bmw3qqjiF ucMI9lEkjYLIhcsjsAaI3VG ldLXUoqgnpIAb9HXmbEQCum VL0GRLmvMBaM9RnJFZdBU1f ifv5IVL4TYaqDCSwBiC7YPY ufKYnRGYetMatWRrse624RC G4MrZoMIDdnzWarFqedD0aC bZiYZJNXHLdg5DmWIRfQXZa clxwYXJkXHBhcn0= SPECIAL STUDIES (test k9qlcYVgFMEppKE3NuYqVTQ code = 3376) oy0pjp8WfnELbqLLfIFxpvD ClavUlug23bGH2jE48CA9vM IKlXhH6KIEuxgK1Qcc9DZJq UOQvoVWrB337VWIvSQDpqOd iqmr4eQ95YKIwvA7eoDClBO ygprDmFBjeiqOsnaVyNuj1P UU4pRnhFDZmezybHjE7JOnc KZLcfojkLUb0CQxmSPQjaXZ 8NJXktVZoO7HgNRLuHU4gwf p2TQH6TXudGJUjNgB9LSSmr ZYnCBRbrUxuPPnkw911CSS3 XoTzPEEzeoRdwQftcW7fVgA vKWaqKwCnEQ4yJ5AcNMUuve EoySQkKRwhcYEnp0O8MKziq aBduEosrDjtqYCpCc8odUYf u0FamJI3CPD7CKRwFaYfEVV ghP5cxULlELzdNHWtWK1qJM pjBRQ2aB7vWTMdpCqwMJAeV HFzy2MrvMd9YNOzPyBVKLun TKVsmdIkT0IiGLufOF5uZAI wr1quQIZuixSycwZtlMMjHD 53WLQdoFJbXLLcpB2uEfOyo GFyXGZzMThccGFyXGZzMjBc H4ThQAVgo3GaIRI2VZSeJPU tHIT6SPEjXNL5lS5yQNCmyC k0nJEnxBS2NJDgykNgbiGfz Zjzssipk4O7BDehaq4ryWMv XHBhcmRcZjFcZnMxOFxjZjF ccGFyIFRoZSBpbnRlcnByZX GglNifysWyEuL0tBvtCHFat 1QqgC7swMEgPHRrcCouXLJc MMEjUxMqlU20ks8mdMW0l5I cGL3dl3GlmOOdhfWwkLIysP NyJRH3YScwwt5wiUSqDZWte mSUo144ib2bCABajUEeaeUW kOVlaD6jUNyrODwoOYllvQX rVFicr2tsKANuo1j4nGUxWY JmvmZvz1mzLIugueVbZTHaq CUiiSRvHWBgz16oJKyerFhq pNmbUFJip3WrsWpfl0YsAwZ yBQgyq9KdD70isOKodOKxgN peSHBbpkSqDOGce28ee3sdM NOrVpS3iXVozIP8aSNxgVGx k7ExkKrfDWQmn5faHENgwf9 uccycmMKjp3FdvO5wuqenJF hiaDKdplCeETSba8e2oFCyS RMgBWIwVPidfNz1GKLey478 xi5qhkF9gLFrESM3BNmqNDQ sZSBhcmUgZXZhbHVhdGVkXH JmchZmFTTublBGgE34dk9ne MB9s9MfYU3ss6JesEA9QCNs bboyGWdlsNKkrEjlSeG4QIH mcAJmOt9fpMHlKSS3VJFxuH isauTNfT7oFUDfLGi2WXVrH xEmRnxlxrTTEGFkT9LzYFJf ovEpcaceWAE3jN9bu9l6CBh hRi5wPZGauefwo5jwrmRppP Rta6OuRTMtdqEnz9YdEZHyq vOleVHjLAFvphRtke1ixgRe QZDxXOSrD7ByjomhoYoimlF 3ZXJlIGRldGVybWluZWQuIE n3BEckymVon0UhGlFmfwNhp YDtdvThMW8lUVSroVSxkzHy GVY7XJHhFVDKNbJxYCZjl3O hNE6hBINruMgpFFVpvJ5kh0 GyZYHas22vYHBrLQIFHQKni GFzIGRldGVybWluZWQgdGhh rWUodAIuESPxSNFgIJ5oCIG kokNjhROeg9CatJTxxyJzy2 CrugAfEVUvNWU7VpSJjFQsy DMjuETlnqW5s9ZjBEHrroTx rDysbHIdeDTrwSWra3Tuwc0 dXCSax1nepGemJO7ptFBxMI ByZWdhcmRlZCBhcyBpbnZlc 4LiX8F4vQ3iQDwvm6DxUz7s GZGyh0QktbZwBmQEeQhpDCk aPl5cZSDuzsrjfAQqS8TutH lmaWVkIHVuZGVyIHRoZSBDb XxujRZgxFSOTNHncyX8b8U5 LKwnnIPyvzJlHH31WNIlJP3 slAKknUYuc2RxRWa4YADjQ3 tNDQ24GNcqLVZvoMIsuNdfx VZiTJXyVUItysQtbj6sfOhu cDKvn47eeRF7jAD1OIEatS2 yT6LpLRwrPp9xYUCkumaxcC YhgMqdRq3sbMOaaM== [id number] 12:53:55 Test Item Value Reference Range Interpretation Comments Case Report (test code Surgical Pathology = 104) Report Case: [id number] Authorizing Provider: Ronaldo Owens, Collected: 03/07/2022 09:04 AM Ordering Location: [facility] Received: 03/07/2022 09:10 AM SERVICES Pathologist: Kelly Adams MD Specimens: A) - Soft Tissue, Other, right diaphragm peritoneal nodule B) - Soft Tissue, Other, omentum C) - Soft Tissue, Other, appendix D) - Soft Tissue, Other, transverse colon mesenteric nodule E) - Uterus w/Cervix, uterus,cervix,rectosigm oid ,bilateral tubes and ovaries,bladder peritoneum and pelvic peritoneum F) - Uterus w/Cervix, falciform ligament G) - Soft Tissue, Other, procto donut rings x2 DIAGNOSIS (test code = [id number] 3220) uZzEwMzNcZnRuYmpcdWMxIH tccnRmMVxlcGljOTYwMVxhb dRlBWDxqYKgT5DzrtswXFno OC5tCI5jwVitzNYlfZRnTMV iTqZdf1hju028bNPfq8ysZP QJmarzeRj5wOdoF70zn9X1H fzpT46coKCgPXE2VHMwGUBk lRGdGLJvDYQ9XURvuEEoV5b yWNCmZJ0clsecIFizZZoaAP TdxJC3BFKolNWeZ3EpZAJlU LsxOWSgtbk0CaFiXb3dnZOa eTcyMFxwYXJkXHBsYWluXGZ yLtUhQL8uREIYJOMVMkXIFN wgUklHSFQgRElBUEhSQUdNI L6ANGNWIHxgYYgNDBODG253 QLHekgs6ESSbOEIEDUnNVNp ZJDZRZEXDAa7UNcJYYNFFZV 4CEWRgZ5qFLPHXQ7KKXY7ZA QZLLMWjP5IPL4yZYJARQRyS TlNccGFyXHBhciBCLiBPTUV VVOXGEZQBHOSTARKYPR4NWD yyoICcFNEaCfYvBMcKU7hmK 3HFSUYlG4QFE9WJZEIUYnYD Lz4FFIFWXZMJUCZHBK3BB22 QQJ5FOeLHHLqTYGPMX3AOJY 2TV4gwEZMryXTzHKRlNLFMI TACSYyGZUARZAZFYfUWZ1KW MZd6EWYcfim7NIQoRYQDQYq ZKPkKAHIADONYMk5ZTkNLBF WBVG1NTNApRH9XE2bCTG1RZ KTPCHCLRZfWDULAALXWXr1O BGgcWKAmAli4AwNcQHRWKeP tPWDHL0IJEOPKUOvSGRKbys khmAUiqOJjXK6bEHIKCL3RK GTXMOobFUQDQ0vYKLSHOYpJ PKeRJCZAB1AnV0LTG3bYV19 BIFxwYXJccGFyIEQuIFRSQU 1FCbBGS5UrO76ZV55tQD6BN 7RBIPHVHYNtSt1FWLgLRUJJ ESZVX1rQYplcfFXiFWOuScT tIENBVVRFUklaRUQgVElTU1 IELPhYLb1IVdOTTJYQWRnPA 7xvO7XYNKIkH2YEK7WDXOEN CzDHHy7QXHkcUTRoYvv1IsD nNJSHCRYJIBJHZT8ZO17NST 4OWhGCKMvFUXPXK7KEQS3IJ tQyxOAgYZPkFKfyYANzTL9w VVRFUlVTLCBDRVJWSVgsIEJ XZQXPOVYDSUQCMNdXB8JMIT 7qTZNJDCQnQE7GDY0JITXSL WWiEDDDS0MUE9pIMC3QRQLF I5uLUsdeLWGlegSHUZPBFEE VGLOHQosKM90GDU6tMGCWNA MEQuDABEIWSO5YHGOMDGGOT sRXXT4IKZRBTXtPYDacDUkI BSNUKNBTY34ACDIZEKiYDRS AZHpaW1TAYYxRT39sY81UGX 2DRWITH24QUIWCLJRMB9VZJ 17CRDFbNfTXSFAGFQ2CYmai YXIgICAgICAgIEJJTEFURVJ BTCBPVkFSSUVTIEFORCBGQU zBG9ZXYK2uXFRTLLKayQCbM RVdSxThCWlDQ3kcS3BJYGXq Y7VCI4BJFSQQJjLAMy0GSBE TYVVKDQBBMW9XR89WIP0SOz WEVQaKLTFGQ7XGDY3ZDgFqv HPmTCSkIeCwWMRrSF2ZP9wM PZ9BOKWHGx0HBMkjC9GIXpJ UHRQxN9VfFniBCTOONaHBRM 9WQVJJRVMsIEZBTExPUElBT iBUVUJFUywgXHBhclxsaTcy MFxmaTBcbGluNzIwICAgUEV SDNUWTmWNSVgjA36DKYKZGX FRGIWtFVTFVYGMPGRMU6OAW LCLWIKSNP5VF3tpONWaeUbl XGxpbjAgICAgICAgIFVURVJ MWxEXVxRyE0TQGpnRJHPsly c2YDFnNRVNTZyDOTdEBMDKL OPUXm0PZxVFOHTOOX9XTSRj UO2NX3cYSB0PBCMTKDYYRfH iU9GEJ7DTWSWEPGidJOPyCj y8OmNkJHSKZDBUT2OWQOLHQ XRZKP1TX2vqZCWgSdjbUCDq HcViQUFCTR8QWICUBDRADHD GCNyAXMcYOXWqDuUJK4xAU5 VORCBPRiBBVFJPUEhJQyBFT kRPTUVUUklVTSBccGFyXHRh RzDcFV9ZD58VPQWNHK4mY6e USCBMRUlPTVlPTUEgXHBhcl q0WWMiHFCYJxNRVGEPM3LEU EUgVVRFUklORSBDRVJWSVhc cGFyXHBhcmQgICAgICAgIFJ WW2EYV8zFDX5NGTEZY2tKOf shLJAphBKqJN7oSTnNCI6AL zMMQSHZIPJRLMGoT7PED5bP F48BDOtNPAwhQXALHV1SYMO PH7QVQPUTNOIYPzaJODNYV3 5TXHBhclxmaTcyMCAgIElOV i3EMriKRgUSLZTUT21LD09W GeUFNIVSCIVvQL4XLGQFQy6 MUBdpPSKYTBOMG35ARHJazl AtIFVOUkVNQVJLQUJMRSBDT 4sBFpkMIG6AE65MPVdjATKu OIFQTFXIZ5JLLJjUDBYSYvI BJw1RNPNWFsBTSsKsO1PxOI iEDFPyRPbEJTejOe1JTVSiS YGpNbcopRDzBPFkJZa4OKWb CUUDSa5GDL2LDHAWU3hLUih WYO3WNlfFLhqaPK3OY0oLWM CbOvmxVKGXC3KqnKGpEWHpV wYcNGLGE5MFAUWLF8tUKyfO BT6ZTrwFRhxlXqDNJLWPZrX tDz4HVHKGKG8SDSUpeyNbYY AgICAgQkxBRERFUiBBTkQgU TRLXrfXLPKXSofMB33EHB3u tJGfHZTfZvEbZSoNB2blY8Q QUFWjR0ZLW6TBPDNTVjDNYf 9QAPLWLXOHWVGQKN7KJ03IE D2PYeHIMKjNFDFHY9ILMN9F M6ohLGFjwWXjNXBpCCIPUJH IUd3OTCHCCUaUIYOPZJaxDN rSMUOTF390CEKaugu3BWVfH TKSGDmUOPgONSRFQTPTOc7D UhAHHNDRCP8NKNWaVFIlqkr iDXCgUa2uB07XT74wBSZSIq VUIFJJTkdTIFgyLCBFWENJU 0lPTjpccGFyXHRhYiAtIFVO FsJDFITZGXQEOCUGA4pSIzf BTO1HF45FPFdzPYEyuIVnTB 8xQ6AEA2PLANdYPDfcTBIBD UWRK71SUSDLQGCOMTITZIZJ PK5CI09TMG5JItMMCTuSYUJ PE3MEHF5UW4yzUMFjpPGmRS UiP7bZUU9LAQUET4SQY4jBS ITIYIFVTSKMQPyUAU2tfXAj MJNgeh23LIM2IvXxf7L3ABC 1SZPeNQGlr7ixVGUzkJAjXj EwMzNcZnRuYmpcdWMxXGRlZ fDea4kqw918eEFoh4tsHAGh JvH1nTRmRNNybUGvN511MAP xKDsff0cwm4FqOAGnyTZnd8 M3TXEZgtjqdSi7kIqfX53lx 2K1IlrnJ9zmDWBkEWUrG1Ms LN7yALOyAhl0QNQ3QLB3FSV tBVJnN7RzEE8qFAIlnBOcFJ s4v2tdiCcuLSRgKIZ0t7ihI RndwkXmQC2vxn0ucNz2v3bc xkPlTGAzTJMczDVNUBFlO0W ptKirZg7hgIa0qSqnLpkvRA D3Wmy2MD3url05ded8mIrlA MXytphjRyC3JLdjAJAsajza HKa5FDdcCVKegCO6ICCpoHH lS2CgSYItSH8fkiq1KRA8VM wzKAGuCvA1IVAvkQPvBGZqo CsdKRyos605MEF0LrFwZA3r K2Jkt6X4fS3yvHKfFCMbpHF zVaOiNKPwvs5waHEaSAgzm8 InEHX8soY4bWEglDRbXMCqF tZ6MOxtPU7nwm33LJBfQCQ8 hc8thMTqwReinqTflCApSNr dX3UdNPRgn072PIYnL6WgUI Keb1A2ozItZjAoZQRmoGC7o kY4IJHhTK8ehotpe0wwDKcy OUtpGTUglfP4yrG5CKRzxAY kS3CchY0fJADnCO3wbguhh2 wiSPI7ECfrYSNeQGJ5FxWfD GScl9Htwbz7NaFjb0CyhGZp YAffF82yf538KXZilaBzD9h wbGFpblxwbGFpblxmMFxmcz R0JCXzNVqcpzprUKOuCQcvV 6atJiSsUJWfhVkuLSflu4Mo XGYxXGZzMjJcdGFiXHRhYlx 0HRKmzRUuIPXlXhNvD5jrjl orPtXUQTLat7mfB8nqkQJMy PUvA0MyTNcqmtPwEWjyOXdm AbFhZEf5NZ64VkXyYBDqko5 9 SYNOPTIC REPORT (test OVARY or FALLOPIAN TUBE code = 5765) or PRIMARY PERITONEUMOVARY OR FALLOPIAN TUBE OR PRIMARY PERITONEUM - All [id number] Edition - Protocol posted: 07/05/2021 SPECIMEN Procedure: Total hysterectomy and bilateral salpingo-oophorectomy Procedure: Omentectomy Procedure: Peritoneal tumor debulking Hysterectomy Type: Abdominal Specimen Integrity: Not applicable Uterus Integrity: Intact TUMOR Tumor Site: Primary peritoneum Tumor Size: Cannot be determined: Largest nodular area in the omentum measured ~ 5 cm Histologic Type: High grade serous carcinoma Ovarian Surface Involvement: Present, right and left Fallopian Tube Surface Involvement: Present, right and left Other Tissue / Organ Involvement: Right ovary Other Tissue / Organ Involvement: Left ovary Other Tissue / Organ Involvement: Right fallopian tube Other Tissue / Organ Involvement: Left fallopian tube Other Tissue / Organ Involvement: Pelvic peritoneum Other Tissue / Organ Involvement: Omentum Other Tissue / Organ Involvement: Uterine serosa, pericolonic tissue, appendiceal serosa and mesoappendix Largest Extrapelvic Peritoneal Focus: Macroscopic (greater than 2 cm): Omentum Peritoneal / Ascitic Fluid Involvement: Not submitted / unknown Chemotherapy Response Score (CRS): CRS1 (no definite or minimal response) REGIONAL LYMPH NODES Regional Lymph Node Status: : Tumor present in regional lymph node(s) Number of Nodes with Metastasis Greater than 10 mm: 0 Number of Nodes with Metastasis 10 mm or Less (excluding isolated tumor cells): 1 Emery Site(s) with Tumor: Pericolonic Size of Largest Emery Metastatic Deposit: Less than: 5 mm Number of Lymph Nodes Examined: 3 Emery Site(s) Examined: Pelvic, NOS Emery Site(s) Examined: Pericolonic DISTANT METASTASIS PATHOLOGIC STAGE CLASSIFICATION (pTNM, AJCC 8th Edition) Reporting of pT, pN, and (when applicable) pM categories is based on information available to the pathologist at the time the report is issued. As per the AJCC (Chapter 1, 8th Ed.) it is the managing physician s responsibility to establish the final pathologic stage based upon all pertinent information, including but potentially not limited to this pathology report. TNM Descriptors: y (post-treatment) pT Category: pT3c pN Category: pN1a pM Category: pM1a CPT Code(s) (test code [id number] = 3357) xo1ocy2DlbCDvuPAfKEzkaK UyviWalf59tJO1wP11RF5zZ FXoOzX9NPYvjwE1Apq1CJJv EHMicPEhW305s1bpi1fptuO fdDZ7mNcbCUGbghovHwH5OX fdVTGfvkkcJZl5AUrwYDNey FX9VISgfFKfQ1VcGDXdMC9f vkw2HUF7ARfeEYVyMzW1TVU ulKGrRYRdfQdaHYgor193DT W1XgQiKTPiviPoeApevR7sK uQhBBOCCtQ8VMPsMNtcSNol LrC0XAf7LxJrTcM9LVU4BRc cSFDuVd0sYXebABiijUQjXK QaDGt0OiZ5NZCmkjVLIuX8R HMlMBnrQULtXI5zTKfyCBn8 SFq9SkSaTpF6ITX5OBY6Kme kRABcLp2iKWokLOGmmSLuDI zzWHq6OoA2RPYfgn5= GROSS DESCRIPTION y3rosHXyLQChnYT9TlApMEW (test code = [id number] [id number]) HybkYwcy10sQQ7jU74FQ6vA SXgRnT1MSJgktE3Hhi2ZFQl MOAzuRXvS077j6cqy4vkhuN waLM2SRJlWGQhV4ItGW0gLR OztMDjO87yoEKpLER6DIGsK NIoiGVvQHLnJXL3ZUWcvOOk Q0ytIKEgNC8uelqvLDgjRVc vTMZaqPR7IESltSDtS7PmUA HqDFmyLNNxjeq4VqFoQr3jp OBdwDwaBKfaKLXmj3acDIOv iKVjJUU1HOlztFRqJGJaVHT gIDn6MJQaVMbeyHGcJH3krC tcVcrkcWgkz2SpuDZhBRpoA ZHwUCBcVSssKQWlT0UWCYTj LhP0UfN4BNCrMLf6JMo0VF3 FBqIuJHGkRKH0UhBqENFnNZ k8TYbfAG6PRTB0CgJ9WHd9J xH3AGRuDVRbICZrQjOtBSZu FGisCvSEtkojhQJxSM3laBg wbGFpblxmczIwIEEuIFNvZn CwJXllo8UgRTPXaFxnju1ei YIuGOZqMlCxJA1iAOCwD1Nc dmVkIGZyZXNoIGZvciBpbnR xEX3yNMKisKz3GUBru94dkK p2TBWep69pvZUeYNohKAZ0z THkIKAwsVszpxKxplFsQU0k URAoJ4Qom8Xxl28wliWfAsA jBQMtGPBko94ahLX0pHUpjV OwSP04qZJbVcJjegOoCVUqw b5zfA0uYNQmHXH2FT0uPQBw tFVcTGUtHdL4zEGjcXThh3v 3bNHkLKkroQG3AP9rhkrhe9 UtSpIdRRAxtaJwskWan2hlM N4pTUWdCDBrtUPjKWtvVJY0 Pd2duJVyQJQyzfAwnyKwbYJ la5BjUtOenlIpGQXyINg2x1 buMXgnSJCuh0YgmHBwZGLLT UWyUxgfZGSnaYTjNYyVm4oa uMaax1LfuPFeQBewFQPdvUK sRQimcN2fDbXnf0didSs5RD xvrnD6EGUokv58OLpxCBRkD 8FwS7QbDRjdEWX5UKKnVdMo YMBjXP2XVkTaPTjPGIknYwS 2DwZ4YNy8UCHBFpZoCuGjQc hcELecKNDxZFw6WHe6HLyVY dI2IZv8Hmw4KDRdXIHvCWyi ZPe3DLYgKYkquMEkQDYqOVU uXBgoWSabI67vRsWpBZMJCw TEr4J1IKVek0J5JQssS8WoQ XIuXHBhclxmczIwIEIuICBS BTDedSUxPYNjztGbd9YdACv pbiBsYWJlbGVkIHdpdGggcG R8gEYrhGyjPG6gjRMbPYEhG 4Mil0czmzMxfS7hAHXcTM4k OMLsq7U1ITLdc2F4WPtcj1O oZXIiIGFyZSAyIHllbGxvdy ZzUJF2oBLwcUXpgSJuj6Xlp 91neqB2gXTdRQNdzVSlrzuw QIBmhSX9CgDrkKRvBRNgGYV oAx52XQjvOBZ0LCOlN84rPS EVoPXto7KxM7liFO0umWOhw 9OmcDOfdWnwm8HjrKxhvtNz DIKlZBGvf9TePSttNTMtNFS at9AlaIRaz1BszQKmGHqchY 08VHGksAJsb5TxSZYwd06dD VJja1PcgIWuCC6zYBPzBFKt JTgfqZjcG9R5tDWbiH6zRWS oZXJlIGlzIGFuIGFyZWEgd2 q4vLTyWV0nPREmXNSdJBTmT DFaXB5qATVsVGEcxVKmtrjm YUL7YMIxNLW7FYUhM42aYCD OaFXoV2J5GEU0otHeO3Yhy7 IweUzqWO9fCQJlPPQyVKLeQ XBljXSmxKO0gxLbSCAoZzSj ZaF0mFvrLKNfTDScDS6oFK7 wSH4aTV71zTSlTIybb2jwqr BcPTToXIvkHH45kNClWXGmK JTBLTFaTYIqcyVsaIg5HAVm OPK4vP9vuiEyinGqo0FtiKf 2oUPgMFJeXKDuuIhns7MkOY RvriidMCAsN6BoaOgogcIcs 1NlRzpqFAZnLcHpLbP0PNPl bMDxi1OqeMW4hNYzDCLsK8I cr67gGO4nDV1mWV29gP0iMO MxeQzlK6DcBDVvhbUgFZHmD ZL9FKpucUAyQGY9FWHiKGcs BuBvryYcCG65JYRqacNpd5Y qzUuknpQtn9Lfft1wfVmzkk AtycOnMNSraHnmS1PhGARoj mYxSRVzLWS2OSahkGGyEFKh Xm3NBqR7WJTwIRf2uZ2oGAj mlrThegLiMG14LMLwtaFeo2 GzzHoanpKpz0Hfr62jnkC3y YpeLKZyALNqbcFvVHSxL4Ny n5H0fVSvYZLsxbatUGQkVfJ gzYCmIMFndzqzYALdT1SaN5 DdwjEmmHWwOARgoyFnz4wrP YI0KIGndKRldUPuXoPzDsqs XGJ0k7xbMTYhjPUfAVM7RLa caWQgNTEwMDIgXFxkYiBPVl KcUfCcSeZ5SGriJORrMOr2A QmpA3QUJZIsJES4TPJ7VjRq OrX1ADf1YNVJGj0eENH0GIX 0KZOzXST6OmJ8ODlshJJeEN xcZmwgXFxmIEFyaWFsIFxcb nF3EDFrJwByWh0pZ89eyTTZ rLRbqGYbAF67rNRyOqnlOAF vCsJlQObvGrFrIa7eLvIuVK s0OAOsiR3aKf7dhTXtrZ7kI KhqKpZoAEAkj1t8eEO0oLBq dMI0nRLcaNfbOI3deWNrTZH fB0Zlk5wmnfUmxE7zIXFrCK 4xAABia0N9KTWcv4N4TBxih 3RoZXIiIGlzIGEgdGFuLXBp nliblG94ABI5CAYhkOLmIPy 4DKa4KqGjD86ieW1jjFRmZ1 YvWCGbGJRtZI1anK4vACQwN CBjbSBpbiBkaWFtZXRlcikg m1u9mZQrJEXaMtT6EMXvMGH 2BLLgETKqpUJzvZViE4hoCK WoWFCwAXLzSY5inYgdFI2pV XuvTTGezt0wWTLxnvQ8YY7z mVljirNzwlKvl20ck1IuKGf xzHpuvVEfqCgta1YilZM4YN 3sn4nuwINern1fqRqgybMcE H9ptD2dHBHvn13mtKRtfyU9 sXMqIKSiVQ7zCT2jBQliPBb eOTD2HAH8DRZuvFWyd1madj 4gIFRoZSBhcHBlbmRpeCBpc oLpWJJnERzxtKTiZZL4xW0n TCGufU4czcA0BVBtNZZgjS7 sGK35NDCdP6MuBH1niCDugE XeHZB9zDNxOTbyTdR4fZZhn Fvis5Z9BPQnJNKsDZ2rlDep b7YmnHbfREHyyDQxBGo0CfA iANroCVe5xMAkYGybUQKqeN V4TEKdEYHyVT74PNGkGsEaH AluBAiksLqpzWtxZ8voBWIe UDmkBHQzYjYhlV8nSjVcwkP vPN13WZIglfVcl5XynUqmpk SyRCXoROT2Kh9khPXzCK6mf REgBZGiz2GhuwA6AKGnIVCn e7NiLG1pSZCiOIFvsIWqcG0 xfh5nfSToBZRlyuXGzgtvR1 6uFEdjnBxsMMAHkpKyA1Mxt WHgdJutXKbzeNZpK8jeXTAe vpdpPPUrW5TfpWyqbqTxr1Y nQhhzRZArOkP6MLNyk3ileS RuKL4ayqiphuMcrlDrILBrP AGcYYZwcYCiX0HpETS7cKXt ZEJlLAWsQ2DirUShECZyBpA OUWGuSETnevFguWn8RNGaja 5sjuElEFL9uU1qraG9lgZfj mNsdWRlIGFyZWFzIHdpdGgg pi5tmNsfl4abVTMwoQSuNYN vLzKjS4TzYIwVi8erlFqkj6 VjdGVuZFxwYXJccGFyZFxzb K2vJiGzg0aezSb9UCmuwxB3 HYWetm14ABsgIGFdT6CcN9B jVDjhOVQ5VIGwOvYrFNTfKG 7CNuQtRYdVOSwoJxB9PeD6I Tn2AUMTHkCbLlOmUhnpXBvl TvtzMRl1WRn0TDnKRmQ5LKb 2Ujz0TOicNGVyWRocEMk5BV IgXFxmbCBcXGYgQXJpYWwgX KcyV50fKwMvJPDIVuCOt8J2 SPSvx3K6FLeuQ8UlBMIfAIL hclxmczIwIEQuICBSZWNlaX VvEOFwpvZrr5BbUQqtxlLdZ TOzrFAsRQskxPcaoCU7nMUf yNnuXP8hdKLpPSMbE9Zty6j wmyPxnP9fKEBpNM9lEVTmg8 T9XPTyb3T8LEgvz4MaYYWfX SUsLRWlOQZwhx4xtQ0vBZWh WIKjb7ztYSWee1W2COPqdeE mdINorCHtpQInn4GjjG8iZF JbRdI2BOHgLrJ0ZGThMoZkh bUlPH5fBDyaWF4aVOcpDQ5b XSOaQyOiN2PlE9elYH8gbLK vi5SmlEx8cUVdRFrtMDDonS 2pkI4dB1Vct9N0oWYtOYOqf 0clhPuat0IyaLCbPTcaDYLl iKStDVjedP0aQnNqw9muqMo 3QGinjmT7RRHuow78UYpeJY EkP6YwG9AfUXqwLFP4JGJdZ gQnHLNfLZ6PRsDzRSqATNlg AkA4CxW1NGs2EIQUBcHbVhQ sPsopVYb5KGhsBJt0EPf8UX oPInS5LOd4Bpe1WsrgGAYdL MziVQz4GQWbDHebaZZuWPNv AGZbFEbuNTwnC87xZjYlRFN RVoRUoAPjgASblo9WRZV7gR guXHBhclxmczIwIEUuICBSZ IHiuZNgDFMnrnGtz3IgOAun biBsYWJlbGVkIHdpdGggcGF 6uQYfhDagXJ8mfDZuYPAvX1 Bth0zsmfXvjD5sUFJxXU4tD ZW2eJTupZOlc3n7wHQdRCD9 aXgiIGlzIGEgaHlzdGVyZWN 0g713TMIoWJXwd2hdZ0TctH cvk9PxN5nyHU5tfWAid7Gwy Z1wKEH6QBkvFAChPMS8DJGw U50fCVt4b0ukrYccan5tYDR yP1xwy4RzDX6bx7cdcAJhWR LkIDTxtcvlBGWiiW6cmDUsR IQwwRb5ICHvzC25PfimpX1a CCktdrKgHEewBOC4xGTptEH cRFCxc4TuMXjopVtzo5gkQA BgGTYeTBI3kU7nPP5vXET7c bVeFWW6FZUfCLzmEOinrkz1 aCBhbmQgNSBjbSBpbiBkaWF zOCRhowT1vMKxXQX5sTMehO YfJH6db3RbnEEosS6hCYHcV SBtZXNlbnRlcnkgZGlzcGxh dEEexLIrhNbyfNKbn3KtdPS rjjLnBJOroc70dHz2PZTkz7 E5lWUnHzHyWDoop3Yjep1ks WxlcyBhcmUgYWxzbyBwcmVz XU82BS4gSNJmNIFuTUXcm3B hr3KhqCvzRRPuk3ApEwFvAF ctDAOqzh5oIJIoslV2JY1qj OsrbgGutyKalYUlWT1paZ5b nvFykGUwdY3egFteq6u0rXA tknSqeDIcAVOwzxyfm1BngB HiKs8wTLOre35bPxUyUEqoJ LAnj2MesPTvx1O9bJ6zNE1e RPOxHQUue4razDXwyfEstIL fF6dyKWJ3jrE9fSOfbT7jdG ThzL3cYYU6vpPwB6Rxr7Oqd AqfSTE6RRE0veI8wFIuRBAq bWUgdmlzdWFsaXplZCBhZGh cl3ndlvTiBAVJrNOvEp79LN dgyOJil0EmemYrUKMkSQGdh 4LxPItuFZD6mlXnvkHbV9Yu PV7zGqTfFOqgdUL9HVRmBQv qQUAji36rloRzv9XbpDCrTy P7tNYaDyPgXHHhTJPxZOJpx GGuh6PzYMkpbGfisDAasEBt FYJllqsbK68pk97cFkTtn1l cqaCyxgJzw78wymMscPb0PO szRZSsOGLmAHT1xX2kVAgpu GggZmxhdHRlbmluZyBpbiB0 pGFao1pofQ3xJIRjq2plui3 xBR1kGZpyp8zqtxVhBWVsSE ztUU78dPBzUDDsuH6tyHliA TVrtQ7mmANbsDMua6ViFgNc RHVlIHRvIHRoZSBleHRlbnN mkhOeOSOeNOLrhsKsPN0pXG MuKXW9eWJnsMKifH8ebSoaG KOgR7P1cJO8tBVbvLSaoLXe dgNxvGQsRRKeZDG3vI4uIXz zMDPkYQPnKSS9ktTqCEVjo1 Gvh4VeJV2mrOPtSQHuefTHs BTkwEPiowHxIT4wDGI1hqXk FRcaLzKcaBSlBx6IYKglEi6 bLBQuTQlEZHXaYTyiWWQ5Be KmM13wFTWiUHWjFUmvkYpoE Q4hSCN8KXTdNCYhD3Vmznq9 MN8zZCS6jceiItFiMwCzzYU eUsOcJ97fs3s7sRRcYYLmA1 3tw5iwuRnjf7PnM0NrykvzH Kyma3VaKWKaXMNavWCyO7pe ZCBiaWxhdGVyYWwgYWRuZXh dDnAGzVCfT18fc32mmQWlYC tfBIB4jFyzMOG1AUBdBNVba C1xfRlbURZ2MWR8avNlziE7 mOMbfX3nuMErjJ4uWSI9wgS oX4TdLAULeDUeJM39XJSqp5 IgdXRlcnVzIGhhcyBhbiBhd VNhJ9qlORFgnVEhRPVtIFYt xiw0w86hJVwjzLlzy0NvLLS dSDLlsTEexCEzEZInf5voRX Oqj9Nfm7Zsm7f2wPCghWc4s EUrJJJ2LZ5vm7mllKFied9t iFyppy0uUMZvtQVjoKFpjSU lasN4xJPcrkOwEJGhVOP1NJ CrwAG3SQTrzwP8ysBrwWZvd HS6SECojNSnPVQkuizwi0Nc h3CpUU2zHJRoGBUuxfMqxuh zxtE4eZJmeAKvPQNDeMSurA RlcnVzIGlzIGJpdmFsdmVkI GjumF8zZW28CNCsm3WpJX7q WWHaq0AeignmzlRhFPb0KHD wiY3iDGhcyPbmkNMnYFDtFK U0WPGmYjImqSChiVJvNADkq bhes4KhvYNzwPF0q2K0NZXl dXRlcmluZSBjYXZpdHkuIEE iwAJgQ0UptNJtLDebq5LqVD IhfY27pcGiaTDemPAtBRQfP DMgeCAyLjUgeCAyIGNtIGlz QHtbLU48yDRlVILieO8ajTt pOATsC0x8VOR6MMQ7djNzrV E4c2G1lV6pRFMrJBJfb4I2Q JDos0LthQBirdDiWgMQnSVw dXRlcmluZSBjYXZpdHkgaXM gdGFuLXdoaXRlIHdpdGggbX DpoOfmpFAueUAlNY5aZAFgP CKanTlaq3SwtW09cGV5uQRi Z1F6lWM7XoIHhHTxATHpygT sCVDzQdJ7UGVxC06wXWSpqm I6dDw5KHJbiRKuv4DcFRKci 1JrIelcRKDtBBGlS8GsHGYg GHFqb7c9yHQopCOrN9osNIR 4usA7aVXbp2AcIJExf0YkaX 2kqBwpkrSzTnY4kTXfNH0me 02tvELlsX8gZWGdIJIujySy oIG2tri3dDIbpvYuHXLuoAz vceusaCSzqRtuBW3aGCmpUN VajJAzdM9dXCA4IHK8pdTbt dBbDCQ5tG7wXIWnsQ9pQAjr cGxheSBhIDEuOCBjbSBteW9 tZXRyaXVtLlxwYXJccGFyIF ZjIGGmTPR4ZYP8wPQwoDDvR XXvriH7UDPba34ohXJ1nbZw StBwCJXyeOGfJfMsP25dXpy jCnUvUXGjJXIgRJaiw6IuDT 4gdHViZSBhbmQgYSAzLjgge ZXhZcFzfGThOMIqCS67IFW9 LiAgVGhlIGZhbGxvcGlhbiB 8bEDcVNJypf1pLCQipwS8RZ 6edGqedbQ4qTRuXN75uTNsk SllLGLuxt62rNa2DBBgq1N2 bGVzLiBJdCBpcyBzZXJpYWx apZChMOL5jX5bABWjyC1iLV fqeVjncQOdYPIldhKfcZ53L Kq5cXJhJgBhTXstWJfoIbYs d3SmckjxaMJzj4HrxSBcj7c agXPgRYZyVCX6fFPuKFWevL FuIHdoaXRlIGFwcGVhcmFuY 7DhGBq1YFwnNZYgs3VcfJTu OBDwYXVnf6LzBOvgCQV0NP3 heW3fdVExiK23XCS3hLPfcI JmYWNlIHdpdGggbXVsdGlwb YJhrIDlFWp0rNHmrJwmd3ar sZCyGPmzlLSkZRhxm4gvngS iEONHnvWtXTHjyya1uGWyPZ UpaqN5kbDxpLUhvP6wfNUqt ICklwLnOwblWS5hgDYvMKrb tfUxYVayHPVvQ4s7VLSqhqT 8YLEpbzRce6Eun8XtrE3lJS WnzaSvGzDEmWPrhzSoi6RlD CBlbWJlZGRlZCBpbiBhZGhl x1blaxAxYX6oZCVcmlt7o79 beP9xKV2yPSBarhQrm2MgYO 5fLTTyYAU8eBQatBMyOOZiH SU4ILBsMANxTGUdzWdkxUgz nqF6xPIiWAYsTOWlqvYggzN zyJTwBCWqrBKfwbrqBS37FT fvPWLwnVGrAT6vZVBtSYRmF NZeZSCskO8nBFJbSDizV3Ni PK55hm6yMUVtgbzowHBzZSO 2dN2xlfUuxpCnvXHfVq1uiU WtPUGbTQMgl0nodOscPF41L HMmQB6pgTPdSV0oxEhdAERr ymSyzPWbOZKsfDD1cO7nCNK vNQEeCDSoOEovu0mwjgXeXK MoeHcnaLjmdlQ7yMMnQCd4w XVqYGFnADJex3nmjD9dDBAl BEIvvLWhr1LoAlFoWJYoEsA 0iFTrp7CrscstgGFrvHVgCG Werwzae6j3xHNbGVwpsJT2T F0nwmnqD3M2VAE0xtLaX3Ck FT0sAD1uXNbhBR91fNMaCNQ nCRQnj0JajUVywOZ6ZKDyCn RbMZjkUEGfgFnusKswxkT2q CPnLVHepYUkioCeH67eig4r dOQkAJUffiU9cARxHQWqEEC de64mHZAlPVK5hJLqIcqnVc MrQTZnpnBqk1JsA9Kzr5Yrj SBpZGVudGlmaWFibGUuICBU tPYqw2Sqx4TiQQcoEGChaw3 mjC3yDAvebVqmlABtUTbchG GcSK2hTNUdZJZiOL0vANEyU PGgaP2datAtjcLeyR4ok9tb yJ0fQPHnaoZDNWQqQTQrnkG fhSu3HLEaOIN7uN0dzoImur Erj2PfkQw9xXUcTyMRgT55q 5ytZOKyqrZmkeOxqUJyAI6m j1WtwSpdIQPcGSCwzWFaZmQ nnIHwHWQigzVHpehqK10dTH yqSTgtBSZgH7YvafkiORQxg 1JjyUTlx6kbxpvkTR9owwpu ircvfC8qEFFemMHnqZPoeSj wTZseH18bg85iWoPkXGXzrS 5ccGFyIEdyZWVuLWFudGVya S1yMOP4SVB8x5tjcY5kOZPg AMOsCKLzt3KoipakxcHyKHY 8zAaraJMqOUGcxfNPTQN9zE 5dTAOeSON9MFtmhnHeVPFov KHnnFyfZFgsP63uw07dOiQi TCIbnC3vhXgrQHJRYh1jjAV 8ECnyK65ux86wPrWnSXHipU 8phJOxRDPfZYUvhEUow0Gfc RW3uVFrZKCuX7Eyf88hc9Re s7ezpF4dZVKro9mfngiymM5 nTOK3ETM9GVW4aNxqbUjzC2 uuBZQmPVFqY5Vzb23xj3WqF J43HRRij4SujJZycgPvISFf dyGFFFGuHCTsBGF5mNvlvGg rD9yqTEVcZVQcH4Fyr72zv9 AcmZ0ikUCaaG4kEHV9TNH1n rL2rOQyBWCbdXYzLB03DWWt u1BhEASilqEBXSVbAWR6YDW iRFb2cM6fEPwsSdVwcD95kO zdv75uk2Cbw3TqeDvgcsQiX rAic9P2WZLhy2ZfzXLviiNa IHdpdGggYWRoZXJlbnQgYm9 1MHtrkZOwEGKsJe8tBTF3sh H3cIQ2YGFeyY0dpYSuuM6iq U0mhXItlF1dIOY7WSG6r5kd HRFmKMB9IEFgfRSzx2JlfDV 7yLUoVDEuQ5Dhs14xz4IlVT 23BCNjs7UoN2Dalbl6DKrkx gXiMAO8VDPfrYUxo6EnaYX1 lOSbNNQrZ7Zpy04hd6SosT3 ndLHrpJ7pEZUosdJhdUppTH ScCDJqJIGaaBFps9UhcNB3c EHsOPLsT1Aoc88mFR7kOPhv VjIhKcTyeM3grWYoXGO3DlE yRX5xRCLqhVSvqGJiOkhtFO S8BWRakYpuDCPZDwLeUYNiI FyeVhTba8HdzfdzQfckDOT5 VHEkiHNfJUGiXq4zEZ1rZAZ uJKH7MA0qg8vpbsphRKTkMQ NfPVrveqZeJZD3JSSaS6o1M AVxhKqhrBriszC7lMRnVBKz AAJhp9MznWWzEFCpqH9tpcq tBCmaezMuTCH8LFWtRzDqjU dodCBvdmFyeSBzZXJpYWxse FLvLYL6gA2gAASkTUXvVL4A BqJbZT3mGIDXVcSwOnRiHWM oLWDpsyGtC2ZznOWhi0DaaU xupfPmQJJznrDNFxEfEJF7C HQgm3EsMyqyIMMovWMpcX4k rvNaQAOuCGNhM0z9HG45YUP 2INWnjyPEEnYkSHO4RHQyit 51qHe5UNXas5U5aNElFT5iH PEqvqk9u00hvO9hrEBuTAHt AF4wy1T2oOMzdP1qeWNzzXZ oyiK8zWRbvRMqSCB7AY5VWE VtHaggICLmtqTaVLWvXXG9b R5xVJzolWzqeHVcMZatzNCe JN2xMFOcPAZohVVlGKReryA ASHuhBACgZ8HxQ7XveoOsrY EoPTHcaiYmz5mvPYP4YTApb REzdPEvKzTbFcboPHF3k8oi KHDbrILlDTN5EPsevQJuLHK wMDIgXFxkYiBPVlIgIiBaUj H5WJyaZQHpBXk8COypK8PMJ UZhBRM5BIL0VGUgMoD8BYb2 AFJZWn8mPTJ5STJ4Wxr1JGR 0LhP8FXstoTQlWCzfAjnvTB onHTYiwVMdPFflfqZ9LPXfV gKuAf4wCLSbdpHgFFsnQ0Ho qin0ZfyeLYMyJjZqNQwhIkG uLw1yQzLsTGd3VJKkpL9fYz 1uaBSgkR4ukMDhCWswWXW8m VXpEMKsoOyzalHfsfWlNX3l KAQfA3Cos9Cpe91annMtXrD qUZTmWIWjWhKnY5cep9TlXL ikC6FyHU92GsIkkaIqIZaic SA7EIwhRE72NCBrAUEftx7k kF0yELVgsCX3eDEuFYAhnTl iB3Zge0Jrt44rhCV0vAOitT Tuz6b6mAXfngNueQSrK2scK SVznYXzrOPbJruehn62zwNf mMRlLTDzBcU2fTFsnMXeeVJ ja8FfbT0hCPLwWpR0AKMxIp 6kVISbDBJmtQWikd2nvPBsl CYhACCdVYqpAVEoi147yUB1 bXOcGS3dUOffn6SoeImnsSN vmoXiQcvbUcniGY8hJKQgMW FgLVOGpVYtQMu8OAFyUTbkh 3VyZmFjZSBpcyBpbmtlZCBh keEyf3IsH9jvBF7ybADxe8J wfOGbaNiia1HqzUpxsvMhRK UyQHObj2LvYGgrBEJ4YWvet 6ztGjY5yYvfH1O3HUO8usKz F1JsGU5aSSKuvXOvEFqjlCF aMACrOyPtrRUxif0akFgcIE 4fRNO6ntisUiV1GjHfiOKwT dBqpAIkQfAkO94fKXGEAFXo ZUQrcnPxcZr7GIJrJQO8vW5 gjzDujqSve6WiwUq0tIMeYg AphTWbYWZcvdWDsseiT38sI NxrfBgoACVKuKBsAIP9gAUt ieAuMVC6msZgI8HwtJPiCEZ zpdAVPGU3hM8oIQRgCXN3KA ZttlBHTK7WTKzaxoDnxjMrS B69XVYtunWim4WbcYfvhlQa c4IfkZegt9DdTYBpKCrgL3h 8INMorVcvCWFbke37pVd0RZ Qcd1J5kUMskAEuNDC4YkYCG DTjySmtgjRxVEAxeCRtm6Bt cHQ6cOUwLBYsO2Jlo03pHG9 tZX9mLFP3LUYhnRIwg6LvWK Wlp6G8SWndEOSsE4QkJ2Eas jCodUAkDGXanxQco6apPZL5 XHNsbXVsdDBcZnMxNlxwYXJ 5z6coJRFczNHvWAP3NZciyV QgNTEwMDIgXFxkYiBPVlIgI kVhAuJ4ITxvBFIcAVc5JKvn X2QYGUXwBCL1TZOdVKb0MjQ 6IFg4OARAWi4fHUI9QeM7PT dkWIP1RdB7EEagmINjEAxcH mwgXFxmIEFyaWFsIFxcbmN9 RDIhBlFsG7ZoOJfuFBPdHeS tFPdnp5DbOEDJtYszdy9kcJ RbXMAiRaPwVi8lBZMtW7Hzm oRqKHsrGXHncq4kzXhjNEvo KvWrYKVxw0y0kYInNKEjWS5 3H5GgyqUmUAleGWKtZPJlfB 4wKT33vJFmymYrnwDzRsYkT cQphEekg7GbEITraYxueiTd YXJlIDIgdGFuLXBpbmsgdW5 vidyjebZkJQNzmN7luECcJU miBP27wsHkCwXqd2elvqxkN EHpf9R6IXIdUSLmiKSoamcp Rk39KUcmTZ10MHdqCVLetfT zJI33KOejJT29OCotOPVebN 3fMAPoCLKawYLky7SezIKev XCvIWDdixmby0e4aSMuzyIr SDFct72sSwVrHq8zkTDlq6F zIGFyZSBpZGVudGlmaWVkLi CkC4ThV3ukAI0kiVUft2Nqz Jj8yFEbPVkzDZMkvQ6pjW8b J8Xjb6P7uZJiGdJtBmTvJCR qtypaNBPeKpS0PTFzcTKaKH V2FA4suFjjCBLzP8CaK0Btc sV7XCWhwz7= INTRAOPERATIVE v8ucaXYuWNNawLPBESPuBzz CONSULTATION (test wvvUzVTYcyRVxO0OqwsagDK code = [id number]) uySK5oQD5nuAjoiHCnlXUbP R0RCGHsCrExCSDhtOCwxbDl WmOgMKSaeYUctHR3VCOlOT8 ddvnuXQpbSQgzAJGxgmV0UQ GnqDWvO4FxRHYcJQ5tahrmI JA6KTgkzG6fujJBDgwbOf8m dHRibHtcZjFcZmNoYXJzZXQ wWCVewUbyLRJdPTz6wT9NWy roDMC4VQGZPnwdLGBuPZ2Ju 6afGGWpxKYzWIJ4LQcpfPJy UVFwGWVlEPd8OKEtPKvkyOB iSD9yoSvnDhbddZris9InmN BcXGlkIDUxMDAyIFxcZGIgI O4SJjBqAIsOHLmpRsD0WaA6 VPu1TAWITaUsEsHdXmnqJCM 7BgrlWBz6OAo2MNgBJwQ4QK reUqGvGdFrZUUwQVlsMAq4U DIgXFxmIEFyaWFsIFxcZmwg SFieH09szSjaeP2hIO4yE34 tiVLSxXMvxXVoBM40iVKbBr yuBFQfONhsJHVnS52bd6OLl 9YwNM3VSMz3ypWrbaivlX0q VILbtlFwNYjgiLDuT4iaTiD mDVKVX6NzFlDhZVqDUVoTFI dNLCBSSUdIVCwgUEVSSVRPT jWYSRWJO9ZZINAdOKRWK7zN WB5YRrkipJ9zTSTtJGXkSOT lITTvP6CITJvZXU3ROrJKEN GyAz4UYTLOBDtMP8HSOXMvA 9FfY6BNO3kGG25VZqGzVE6B RSBUSVNTVUUgUkVRVUVTVEV EXHBhciANClxwYXIgDQpSZX O1cNSiNDSlwH5pvKRuHRYeJ XHeRrEOc1V4LQblntRrzKD8 ZhDmCMHGWVxptIlrmL2rVGT aK60kw3KNf0FqPUZlOTlom1 syoJolb1PjgNRqUDiwCGDnz GHzZPhwaV3xFxJxl5ipmTk0 EHrxquZ4RCIgdq9VUlbomH1 sKzWaf9tczLa7DWSYFtwqtp B4l3yfhNlxe0BupCCsPJ2JW n0= MICROSCOPIC f7bmnGTuRTLzjDZ6TuXoNON DESCRIPTION (test code hi1shv3BpzGDyiQJlQCgaaP = 3371) PtkoEkir67fQE1gF83XL6uO VQsCwK2WXTjlaJ1Tez7RFVt ETGhsXNdW361j7xpt5ghunZ jnZY8vBvsFMMgbwvzXtP4OS rgYDMtymsaBSi0HEcbGBNgy FF0KCWjbCJsV2JkHQZuVC2f aar8MCI2ZKilLYFeVzA7MRG jeLChSLLxiYblQTjok909UR Z4DuRuMCNwvgTplVzjjJ7kQ kUzDMVYEQBro2HkFDMmXIOg clxwYXJkXHBhcn0= SPECIAL STUDIES (test k5hxlUGgAQSisOC9FtIwMOT code = 3376) ow9dpw5AfrMLtpFZaRFeftO IvpoErvs64xRX2cQ42RT3gD NCjUaG9TANwpsB0Jqn0BUKv ULAjxRMbN245AZOnYAElyCq pmsr9gL60DVBrrM0qsRMrBP hutiCtWLrumaWykxReTsq3V HF3bWisVHQfiilcPtT0LThv UKZinpfuCJs6SYhbUZPkbLP 1NRMnuQFeY6KtEMIlYP0yqd f9KRQ5ZOvtHPJbKjT5JRXmb KJzODSsnXjnNBfdu260EEC3 QsArDNNgctVppPpbbV8oDiY kXXdkAnQkBT0zY3BmCRJmjs ZfwYJiXFqhdVUkb5I0CTfsw eAlhNfsrOwqdIZuHb3yjTCs w8CbtHO0KIE7DSHlVyIcVTR ejF5acZFhHMssRQAkMI6hSH wjABA0mB7wNAEsdEaqHAHpH AQdz7TudXa6MDUfMgQNJZwj VBDkuoKfP7DqEHalDV3fIBN lh8vkJLAkeiGwsxEtvOMeUH 65EPFszLVqPEUweX1sGvJza GFyXGZzMThccGFyXGZzMjBc W5GaZJIqw0QwADF7NMFbUST hNDM1RCIdYRI5fX1tORHkqA i2rTKjpOH2WYBqaxKzgoQjf Hksbycys0D5SPbiiq5ywPYq XHBhcmRcZjFcZnMxOFxjZjF ccGFyIFRoZSBpbnRlcnByZX QrvUdpcgCcSdO8cSkvYZZdk 2HnbH9giJRzLFJavMtpHRJd OGIlVxEmaQ52jq5obEO2s2N fLY6uq1MfcWWiftGkyWDzuS KkFKE1BSzgkf0pcMWbOMScx fXWo579ry1uUZYidAXfraHI hHBszR7jCHgnYXfjGTvtuVZ fNVsde5mvNZSwp3v2sKOaSH HyqrRvx9wyIMjvxuGcYBGty OBprKQgUIYnt15rIAkdrBec jLfyEVDds8CanAiwd3IuBrX rJFfxk3KpC18nnKCwrEYvlX twEGVfulPlNWCtx72ft8xzG XZkTmT7yYDamHN4eGPrdEZw m7VttGqeEYSzo9muQFHomy8 czmkcuZOjl8LyqK6gxrijOH ppvBWsqnVrYEArx9z2jMZfG KCeKNTaJUjzfIg6AMJfn253 bc5gobQ5jUBtDZO0CLfbZJI sZSBhcmUgZXZhbHVhdGVkXH GsxtPqVCDrrdIHzA57wr6ao GR9z1HsYX4cq2XsqEF5ASQw untaJSrsnDSbpMitBmH6DFQ ngDVsHi1fhHKqBAD8ACJgcD zoghWNoO5fEJRbNDx5RGGpA aJsCxubrpOAHVUzG7NjAWAj zlGfwdpeWFG6dP2tr0h1CQc jCy4eQQMqsmrgl5flanTwxD Ygq0OxEQUmxyNrd9ApRFIsq uDssOArECGqoxRiiv3lvuXh ZSDbTIVdJ5SgomntaOxxuoD 3ZXJlIGRldGVybWluZWQuIE s4VIypcvUch0NaPbKcgnXgj MCgoeSnYL4iFOWqkPWzztIm YRD8JQIwDTXTKzVdDWFvv7U lCU5vBLJkpVvaDPGgfP3ns4 GfJDVcz60xNBGwSWOLCOLft GFzIGRldGVybWluZWQgdGhh qTPcoJFkJVClWOChXS7oNBP ubmTztHUen5FftGAelsObv9 YtsoLyMKPgMKV5VfAHlOKur ITrzTGthaH7p0XoXVThqzVg uLruyZCpdRBexUByw7Fvel7 hJOVis0zunZwdUP0ydMIdCS ByZWdhcmRlZCBhcyBpbnZlc 3TkO9Z9kM2dWHfnh4ZoNu1a DUAfc3QqalYtCiKYzJspUSn tBd2wGBRioocmqCQsY5AhiF lmaWVkIHVuZGVyIHRoZSBDb CeznREcxJCHYYFlinF8l7V7 RWxjpJOuagFbQQ76VPFpOX9 ekRBtgCGhh6GvTPp4FTRbT8 xMBI47FAhnGPLelKNpjXygc MIqDZUzAORukgEyeo9peGqp nFKre74nrBN4rGO3EGNkmV4 fH5RjYRffDv2sXMLraqyfaK LcqBcwDd7mwKHtpE== [id number] 12:53:55 Test Item Value Reference Range Interpretation Comments Case Report (test code Surgical Pathology = 104) Report Case: [id number] Authorizing Provider: Ronaldo Owens, Collected: 03/07/2022 09:04 AM Ordering Location: [facility] Received: 03/07/2022 09:10 AM SERVICES Pathologist: Kelly Adams MD Specimens: A) - Soft Tissue, Other, right diaphragm peritoneal nodule B) - Soft Tissue, Other, omentum C) - Soft Tissue, Other, appendix D) - Soft Tissue, Other, transverse colon mesenteric nodule E) - Uterus w/Cervix, uterus,cervix,rectosigm oid ,bilateral tubes and ovaries,bladder peritoneum and pelvic peritoneum F) - Uterus w/Cervix, falciform ligament G) - Soft Tissue, Other, procto donut rings x2 DIAGNOSIS (test code = [id number] 3220) uZzEwMzNcZnRuYmpcdWMxIH tccnRmMVxlcGljOTYwMVxhb vJlZWTfdJSdO0RljhcdZSby XS3iYO9rcEpmyOMydBSpNOW nQtFor6yrb954fOIls2bdQA OMwztieKn4yRauL45bg4B5G tmhH13qwYRvDZW5PPAhXSRg kXEoNSOdWZR5DHGngUWaB4k hBSHxZZ6jqdmdYWcfWTpgBN MrmHW0RJTkySRaW7XdBKJbW FqdDQIdnjm3VpSeIl1qrIQm eTcyMFxwYXJkXHBsYWluXGZ pKqYlEO4gSILCSVEAAqHKKB wgUklHSFQgRElBUEhSQUdNI D3ZBNZNHBxdNUmNAZFQS005 NTPbdcw0YUDnUUWHXEgDQXt SVKJGKKDWNp3FQyBTTAKLVV 2PVEAlL2fGZSSHL8IQEH2WY FJTYFFnT7XHR0eEULZDEZrH TlNccGFyXHBhciBCLiBPTUV OUJHRVTIFPHOYWNRRXD0VZP ethVWwFZEaUzKpAAmPG7ecF 2PTFFQsZ5KXT5BMMHWCApNE Fn9RDFEAJMZDIVVASL9VB11 IFM8RMcEILZcIKVRXM4XMVW 2EU4thODFyzKGpPECrXFSKW ZJESQrQJZBEUMRBRiVDE1HP LHu2ZKXgusi1JVNfANXRJRq XHSkZPINFSPHVPz7MSpGHIZ BYGN6TXYWrJA6JH1bHVZ8UP RGHUAAFPDbUKQDLPSWZYu7K LWadSFQdOir9RmSiCOZWQyK aBVIJW1FHDOHLOWyNWZLzos jpwHSejXBbDW6oKCXNSC7CW KMCQBbfGMRJR5lDGWAUEEsX EQqVAYXCX8KpK0BJI3oRF65 BIFxwYXJccGFyIEQuIFRSQU 5XBvGDW9DsW72ZR26wSM5KH 8NSXDRBOUObKy3SRYoNERYD SXDXR2hEHexckPPbGXKgGjS tIENBVVRFUklaRUQgVElTU1 JFTWzATn1WUlUUAWPJHOjST 6jrB6HRWQDcW7ABX8WYSGEJ LnCEMs0MYWhhTUWyBdg5FaH rHUEXPZIJDHREPT4RN68EVB 0YJzXKTNvJPZQUV6QWNT9OA sRmvOUiNNTgRIwvUBHhNP8u VVRFUlVTLCBDRVJWSVgsIEJ MYKQVKAUWMUUSSDmSA2YFAU 5cRYEKAIUqQM3YWQ7RYUCOM VCuMZXOH0IIG1fXTH8JMTGC R2yVHlbmFYPdzlGBOLWXKCJ TXIXJAupAC56EDI7vWBARTQ FTYqMBQSYNXQ7OVESCMBLSR gTDAX7PCYYTTUrDBMopWKoL APWHIJHCP27FOPYWLCaNYWY EGTngP9LZXUzJB44zT30IHQ 6BMMDXD80LVWKDEMZUR2EBY 87SHHPpPmLZANXAID6PYkbu YXIgICAgICAgIEJJTEFURVJ BTCBPVkFSSUVTIEFORCBGQU pMC5RQJC1pUJVOLNKxrSLmX MToYoUqZWuCB6uaT7RRNIRb W4ZMC5STXBLFQaMPEy0VOYR ULEIDSYJIMV7SU94VPQ2ZZu AHGOlGDFKJM0MTYL6IBjWcj NDjEOSqCnWmURWmQP0YE1mQ ZH2AGDABLq1HXLleJ1VSMcP ABAFmK8JnFwuECRZCXwKKXM 9WQVJJRVMsIEZBTExPUElBT iBUVUJFUywgXHBhclxsaTcy MFxmaTBcbGluNzIwICAgUEV SYFXFYaHEAFidD05ADHQRRQ SKRUEiYMCCTBMVNNOFP3KSE HUQIOCVEO2SL2zmQAAluQzn XGxpbjAgICAgICAgIFVURVJ DTjXQHnSsI9PUUkoRIFDtsw n9TOCxBLEWXRgJEAxJQBRFP LRVTh7UBjIPGOWMJI0CWSZv EQ3GH4sJTH1FKWTOBZVEIjT aB5QOS5OHBYTYMHkhHUArTc a3QmNsUROJNUNTG9DUNAKOT ADAMH8XD5vyTQGsOzxfQQRl AwDqWCOJQA2VRWOCDFRFZQF JUPePKYxBLEPlLyKDY8qNA4 VORCBPRiBBVFJPUEhJQyBFT kRPTUVUUklVTSBccGFyXHRh OiVrNO1ND70IRHHMUQ3hF2j USCBMRUlPTVlPTUEgXHBhcl y6CXTjOQGFFcGXTCMWD4ZMX EUgVVRFUklORSBDRVJWSVhc cGFyXHBhcmQgICAgICAgIFJ FB7LFE7hYXJ5ITPPII7bGHx hnCIBtzSCkZO3rTHxVMM0KR cXRVEPDEXJWYIHgR1ZEG2xA K58VALnZACejMXRBVP4NCZD EB7YVPZHMBUOKUisDAJOAH8 5TXHBhclxmaTcyMCAgIElOV b4JPplBAeETZVTTP06EK68Z QuAVEJJXULRlEI4SWTHQLk3 MBGhyWRLFEQIGE49BXPLtzl AtIFVOUkVNQVJLQUJMRSBDT 4pLImlEXY6RT41ZUPfzGDZv LRJRPZCKX5VGKMzOAXPYXyX OEf0SWASBFxFMLzHiB7QdTG pTSXYiKBcQEDwySz7WIIYnR QMwVftonPSvLQBpEEv8YGQz ORSSEn8QGI8GMRHBF0nNNce GUF3GSxjMUvudBD6CV5mHOU PqGvpfALSUU1SlhZCzCVDaR jIpNHAGF2BOCDHTG4gGAucK BW5YLakFRflbMaYKBIGDFgQ oTx7ASEQCOX9RXQVmjwQpYZ AgICAgQkxBRERFUiBBTkQgU PSQHjoQFHYSIvrKE19KJH2p kTNeWDTuDxChPWjQY9uyL3K GCSHnT3KSU7FVHMOKOvYVMf 0EXYQVHZYQVRHONH1AL43UD Q7SYdSJHOoKOMDTT4NXIE8X A2jtAIAagVOuGPGeOQEFYFL EZp6XHDLNUFcBLYSHUMvxWF yBNWBSA885GJBixoe6EYGmM ECLTHxISMpKXANKUJPBVk3E HvSRNUOIXK3ATSYuWLCdnqy sLUJqFa8wB98DY00yIFZOKh VUIFJJTkdTIFgyLCBFWENJU 0lPTjpccGFyXHRhYiAtIFVO QdSPRCFOIBFOUONQV3uNQgj MBX4OJ43TKIkmOHZdmLAkAD 8gV4CUS1PQTDqIZVniZIEWP JBDV60YSQHXTSCCOFFCRLET ZZ7CT24CBW2WEfJMEQdLRSE WU0EYAE3LP7ssATTytDMbCP MqM4iSUY8IHRIUX4MYT4zTB RTYUQATPSOQJFsYFT7owZBt QDSgcq09UPB2ItBfd4X0ZHX 6CXQnUYOye3hnTEQobQGpKx EwMzNcZnRuYmpcdWMxXGRlZ eJjx8zyv959bQHef4woALQo GuU8cYEeXELhgPAhX872JWJ pEQoih3fug0LrSSZemJOni1 P1IHCPbzfroYu6iKfdF28yn 8W4NknaI1egODHgBTWmF4Sh LT4pNSDmUpy5WKD6ZVC2VYA sFKUlR0BtMD7rUTWwlEAaKG a9s6kmuNmjBZMeNUI8k3gxX QwcbaIfWX1oli7oqOe7b3dz rqYqWCFtALPsvAENAXQeR4Q ztVgcIa5hvVj9hMvaHwsfJP D8Avc6WP7bdy42rls3zQtrG AJiayuqClP1HOmyYTCoqrmu IAl7LDiuVWEnaNM3KAIzeQM dY7EhPZQxLE8pbfb6YQL4VZ haWMFrYrY1FXHkxHJiNSBmo QifGXlal823WPB3LmFmSQ1t O7Fwu6Z8uL8xhZZhGVZlxEW bGrAtUZQklr1rjMCeNFghd6 HqLZF7nsP4pAHkiQDpVVLcR bK6MQomKH7yer39BAQpPUL6 oq7bnENiyTrtttEkuHInKXo xJ7NkDUNtx452DAAeV1LzDC Msx4Y0mmPfBmDsHUOikWU0f dI1RUBvGD9mbzxhr2xySVio XCtgQHTijbO4qvS3XXLvyOA yC0JfpY6jOUZxWY8yzkqyr2 mjYAR4YRstAPLhMMZ1BfWhR LXhg3Djutp3CiZcf9EntMYm CWnaU78hr332TWVrfyDkV8n wbGFpblxwbGFpblxmMFxmcz V9MWKnNYnbrgqsZXXgRQinS 5uiQyEjFOApeNudKImir9Nw XGYxXGZzMjJcdGFiXHRhYlx 1AQJzfHYfBFXeEfTcJ1ireh nhUcSWIXNri6zoA3jwgGYKh PUcL9WpMHdzzeKwIKbiODfd RfGtOHu5WS07WkSoSTBadu0 9 SYNOPTIC REPORT (test OVARY or FALLOPIAN TUBE code = 5765) or PRIMARY PERITONEUMOVARY OR FALLOPIAN TUBE OR PRIMARY PERITONEUM - All [id number] Edition - Protocol posted: 07/05/2021 SPECIMEN Procedure: Total hysterectomy and bilateral salpingo-oophorectomy Procedure: Omentectomy Procedure: Peritoneal tumor debulking Hysterectomy Type: Abdominal Specimen Integrity: Not applicable Uterus Integrity: Intact TUMOR Tumor Site: Primary peritoneum Tumor Size: Cannot be determined: Largest nodular area in the omentum measured ~ 5 cm Histologic Type: High grade serous carcinoma Ovarian Surface Involvement: Present, right and left Fallopian Tube Surface Involvement: Present, right and left Other Tissue / Organ Involvement: Right ovary Other Tissue / Organ Involvement: Left ovary Other Tissue / Organ Involvement: Right fallopian tube Other Tissue / Organ Involvement: Left fallopian tube Other Tissue / Organ Involvement: Pelvic peritoneum Other Tissue / Organ Involvement: Omentum Other Tissue / Organ Involvement: Uterine serosa, pericolonic tissue, appendiceal serosa and mesoappendix Largest Extrapelvic Peritoneal Focus: Macroscopic (greater than 2 cm): Omentum Peritoneal / Ascitic Fluid Involvement: Not submitted / unknown Chemotherapy Response Score (CRS): CRS1 (no definite or minimal response) REGIONAL LYMPH NODES Regional Lymph Node Status: : Tumor present in regional lymph node(s) Number of Nodes with Metastasis Greater than 10 mm: 0 Number of Nodes with Metastasis 10 mm or Less (excluding isolated tumor cells): 1 Emery Site(s) with Tumor: Pericolonic Size of Largest Emery Metastatic Deposit: Less than: 5 mm Number of Lymph Nodes Examined: 3 Emery Site(s) Examined: Pelvic, NOS Emery Site(s) Examined: Pericolonic DISTANT METASTASIS PATHOLOGIC STAGE CLASSIFICATION (pTNM, AJCC 8th Edition) Reporting of pT, pN, and (when applicable) pM categories is based on information available to the pathologist at the time the report is issued. As per the AJCC (Chapter 1, 8th Ed.) it is the managing physician s responsibility to establish the final pathologic stage based upon all pertinent information, including but potentially not limited to this pathology report. TNM Descriptors: y (post-treatment) pT Category: pT3c pN Category: pN1a pM Category: pM1a CPT Code(s) (test code [id number] = 3357) iv5lhj5EerRZivCXaZIaspS VxypZxkg12cQK3fH79UK2cC DGtBhL2ONIspzS0Pwp3HGCp WRVkfCFiA613i5pdo9ibbkZ ydJR2yNwcGBBrewemTrJ0SY yaOENujihrOVd4IHqzRSUdm AR3SOAydDUrU9CxXYOwGG1j guk0LDV6ODhqUXKqUyP8QHL rgKWuPOAyvLesVMpor878NU J1UvXaPITeskVruKmjfD7gM xAaUSRHYeR1LIMoHLysKIil YjS3DAc5NiEcSjZ5BRK4MYz bGQGlDc9cOTvkGQwirJJbRU FoGOx2DnA3ODNyjxUPIiV8O PAjPPfjOQLbSH6hZZwqUAl3 JSm8AnFzVcU2PTC3MRU6Jhw bXRQhHl1xBOoyAXKxiBEsHJ ubPAz8IjY2JIKkpb7= GROSS DESCRIPTION i9vqzNQqMJIqsLB2CrDmWRA (test code = rv2viq5XxhJVehPIbSLijiQ [id number]) TeqgUtsw06nWB0iD65DD2mF VSkCpS4FNInqwA5Puj5USLg KIBcqKChJ263w0krx7pkgeS mcFR4TYCqVSCfU8OyYR6bBM RosNYgK72zcITdRWW2QNUsS NDdwKViQVSmTDY1RDCklSCn T8yyPJZuOS3bnuklMDfkXHv qYPPrqMV5OKEdqZQyH0WqFL LbHAvzWIIonyq3JdYjGc5ek RQsjOgaUWooLBBdb7dpBFRd cEJgLSC1HEtriVQiRRHoYFE jHIg2IOCmHKogwSYpSY3adF nuDjbveFdte9SmeFMvJKpvX QUeGMHlNMycFIYuS5FACVXd GaC4EpX6NPItWYn4INg5AY0 NDbCtYWApUWO3LmMrAVOsMA g8WUfuLH3DVUI1KoD8GAi2X nG7WBDdWITaPYVzBrEnMBIw NNclIpIZnbgmlSRoKO0qlTz wbGFpblxmczIwIEEuIFNvZn XaIDsvq4NbOCAGbTcrfi9qq KDlGSJhSyVbIG5qCCUgA0Cc dmVkIGZyZXNoIGZvciBpbnR pLW7vULHmgLf3RISvf50waK x6XOJjf62hoJLyMLpkSSS6v IDvKWGzuIiodhPbmuEkER5k PFZpS7Wlk8Oei43hiiRtYmQ rKGPkXYByc11epJM7nOWonQ LrRJ35cRCiXhBcjwRtHPWli e7onE0aIRHySLU1BL5jETCk sHFjDZGdLaN4lOGxbBOyg4a 1rJQvPWgqkNB0AC9cczglq4 MmNgBiHRZdtcDojbChj9qtW R7gVTPdKNQieISwEMazDDF9 Iq2ehLKjZVUgbfJytuNowPN ej2AbUuQzagUkDTAzEOr5e0 qwVKynOSBhm1LdyTQzPUVWP IIaXuieTTLnqLBxMMwKk7aw qOnfj6ZjsLMyHCbkUQZknUN bZWpwxY9dEgPkq0gnpCq9TU smztJ5JLNzwe76LBsyZYLpF 8JmI1HmQPrvAFM2HSOgHyUy BSNwIX8YLnMmEDjYCQpbCeL 9ZjY7HSm5FFPJOcUmMiOkZl sjTFaeNUJsJFt9AEc1WNpMS mA8NTi9Jos9MLSnWZNeJKam IEm8ITLjKRxqeGMaWPWzNPH cEEyeLSbwM72wPcJrLFFVDr LQt9A3BUIgt9E1WKlfV7KuM XIuXHBhclxmczIwIEIuICBS CYOsvIOtVTWsfsKny0VzSGa pbiBsYWJlbGVkIHdpdGggcG E5kIPffZumZE0riTTzHJNdW 0Pdv6zuwyTzyF5sNMDpQF6h OEBde6S3CXRgs6S3KYiti2R oZXIiIGFyZSAyIHllbGxvdy PhLZK4xTIomFNlfVGgt9Hxy 26hjeL0sUBjAHJvcVBzbtkr BYIrjQT7PnCskNVgEUSoQCK rJs45KZqjJMQ1HJDdN95kXZ UOwFShp6EkC4gbMN1jcSHgp 6CfsQCbfQbuo2BlpIksokJz GEDeHNJex1YzKTtnFPBnTPA fz8TxcUDxm6HmaKBbPDdnnD 57QXBsmAEpf3WfHHUsm63bG WEys6PejROsUG2bWRPbXWPw UUpwqKyzX8X3uCBznF1xFOD oZXJlIGlzIGFuIGFyZWEgd2 j5dQSdME9tYUZpQQVoEZZvS AYkAL3uHLEeVEKioKTeafck BAV6OWRjYST0PEWpJ62cYQK SrWNjP1K9DTK2cySvI3Zjj8 RvzQsxXO7rEIQtXYIyEDSjN MMaaKQpgVM5mbGwBKAaCoNw SuC4wHenELLnEGYmAH8aEL2 cWZ9nLC97oLDmOOoxs0nelf LnEKBqLKfvJR36jZMxVKRgG TGLJBCiQYXccrCucHd0WMSa MPH5jA1gcjTokwYbr8WbcIj 3uXOsRNWkJLSimQgiv4QjZN KtcffcBEImU0YftAsgvbEnq 0MpYowiHGMlMhDgOoM7YTOb cGQfl4JllUH0wDFlPADhE0W om83wJJ5pPJ5yGW18wZ5jAJ VroMrjN6MiCMUzdgQeRSCtO WV2JZttpBTdEGY5ONIzRRef VdGctlUzRI11NGXiajHem4W cqKjkikDvt6Fcxt0asVyzyj MxuzWjFOQpbIbeH7ZaMJNfb eIwPNQvTTI5KQdstQCxDAEb Ci6MBfU0RSUnSDf6eB3cCNp xwmXuokDzKA20WZQfrrMcm6 HxkGvtgeWqy0Dhb90jfeF7s ItlKDLqTSRntcZdUGSrF8Se u2T4lLAlSDBjfoogLNMmUqE zdKIyUSNenwwlGWPxB1CqB6 VqohCdcEZpTOUfnmMyh7wyU VD7AIXrxTPkkAKoOxHpXinq QEY9m8zrHTOeuPXiHAB6JFz caWQgNTEwMDIgXFxkYiBPVl OhLhNnTeW2EYyhFUAnNDk5K YkfC5PICUXxRZH8WVF9EuRu KoP3UBl3VXQHKu5nEER2QIL 8AZBxNYZ7MlD0RNmbtJJiPP xcZmwgXFxmIEFyaWFsIFxcb tB1SJQuRdMpDf9gP31ovJMN tWWblLDfUC50gGQpIlqiLJV dJqMkMGfaJoCpAg9rWcQuBQ z2CWWayT2tIr4pyPUvsG7zB VulZvFwVRBvz5l6cYB9uUYh wQD1gJGtcTcxTA0oyQTdCIJ nC6Csq1bsheQriB1rFOEgFT 7hIPCvb2L9BFNhs0I4WXhaw 3RoZXIiIGlzIGEgdGFuLXBp mnsggV64FGA6GOPrjEYnBPs 5YZf2YrMiR54dzV9ndSFhU5 RsEKErDJIsGM5csF6zYECvH CBjbSBpbiBkaWFtZXRlcikg b0s5pMRiLYUmBgO0HBFoQJN 9OLNgQPXwwSGloJBsE4fhFQ EdJSWcOAXcQA8rrHjsOK4tA MjyFRNmvk9nKSQcccW7ER3s jGcfjxQepgFha26rx3MsNUc tgRhckYEioMiza0NvnTA9VT 5jl3zksWJmzc0gxLmrotEmG K6xiC6gUALpb66cxCGmvaD7 rSQcBUDvGQ7mZW3oZXhyMLq hGDT7LWZ5NZGakEZal2xuzh 4gIFRoZSBhcHBlbmRpeCBpc aLvBONjUPevxGFpDUM6aS3k KJNfeA5ljcA5SFKdBMMbiA6 dCC32IVOwX8XvWP1yuIDaaZ ZfKIA9lDMyGPjbTrB8mAMdc Gqoh8B0MYVkZACsZD5roPcy w6KelCtnXUMkxAFaQQp0BaN vEKbrWIi5nRGrNCbuIJCzbZ T7YZExCQYsUB08JISxJzNcX ZrdCLnhjGijdSerJ8dfBRGj HGlgBDIfHuJvnM1gVaQgdzN rHY21LOCfquPoa2NnsJyopz UyJXOqGMD7Dq2acAIpLT7am HIyYAWca1ObssM4SATzUPZz w9JyVX6mYUEfLMTiyENqoQ9 vtl7yzAUdNNNizjXNigssV1 7rGUgepDfaDEWTquKdP6Hxh VJzeMonLFytoZAgQ3vfRVFj radnTDMmM0CyjImojgVtc5F aVmigONIlMhB1ALBxy8zfdV FoKR7qifpvyuCsqhPrXQLpP THhVPTioYDvJ0ItXAZ5sIBv OARrWPVeL9EcbUSnRYFxVkH GJCEtBDAdevWbkFz2EHZizr 9hyjWbWRK3uH6vgcE9laYel mNsdWRlIGFyZWFzIHdpdGgg ai1lxKypm4qxYKLwxIHzXFX tPvLyR3XpOEfOd8sdwTqqc0 VjdGVuZFxwYXJccGFyZFxzb O8zRvHgg9bbzKi1EIosboJ5 DVTjdm90TJipZLJfL0JkG6D aKTrwFPW5DKWqEaCjFSKaOD 5EEoMoLGwVPKbfNlN9RjI1R Hn6JLKYJvDsYeOjHxfoSSml IugkIJg2JQl2TDnOTtU6VDw 9Mlk9GBdqUXDwTAlsXHc5YY IgXFxmbCBcXGYgQXJpYWwgX IeaW53mVzAqMWDKLaONq1N2 TWFvo0M9WQsbU2LyQHEuFEA hclxmczIwIEQuICBSZWNlaX AxAEYaemJvd8RiQWlhbtLkM PKzuNYuOVwzjFnfeQE9wAXp sMpmGB0rbDRpQUXuL3Gnh9r sgnXpsV3sNDTrDN1aZMXof0 V5VBEva0A8GVkrn8NwRCDbN NYhMPJrFXDadd4glN7eIEMw SOZtp8umMCXhr2J0TRLwzfM ybYMejSGubMWsd8WwrG2dHN UjWjA6ITWmJnF9REYzDoEio mXfBN7lJTxhZF4dFGpaSG5r MTJnUyHvQ8JnS0trIU1vmOI sg1HitWj3uIFeZSveJNEyuT 3ziC6aM7Jqs0K7wXGqBKYac 1slvSzbq1WbtZUuKZgiOLNu wMDwNDyteR4oKhTwo3qrnQg 4WQkkvoM6TNAora47RBagQY NiQ6ChI0PaNCgzATT8UXApN xNpEBNfIE2ABuHgOQkYNViy TjS4LfV1ZWn7GODNOgGyJnL oPvqaPAb2OAcpCLw5MZl1YL jGKvL1KXm6Pzr7BurzAFUeZ GdoDUq0TVRzHDypwQZpWCGv RNDyVGslEFcnJ29sJeYoFJP ATnYEhKPqtWEoqa9LUVD6pI guXHBhclxmczIwIEUuICBSZ LSbeHReKNFnglQmq2JoQLge biBsYWJlbGVkIHdpdGggcGF 9aKFmoAvsWR1nkXNiNQNeG1 Dwt2zlmhGrjF2zIBDwUR4yZ CK6wIDqgXPah0n3sHOuDAQ5 aXgiIGlzIGEgaHlzdGVyZWN 1a127KQCdSETky5rvV4DfxF fbw8BsZ3liOG6cuWLto6Urm N4uBEU0BIpcRDFaXSS0VCQf C52rZSh4j8rqiUvosq5tLIJ uY9kgk1ToLB8dl0uswKSkEY IkZVTqxhlfXPJgwW3akHImS JWegCw6JBBvtC43PimfdZ9l RWesdcTkWWxuNZG7wOLgnAQ nOCHxo1YlGWeetGrep4qkYN CbHCMcSRR6dL8gKY9uWEJ6c uLoLFI1LOZaKKhkRArlvzv4 aCBhbmQgNSBjbSBpbiBkaWF jRPRgviL2uYCcMML0sOQuvL KfCI1jd6TvuZBiqR4lROAkJ SBtZXNlbnRlcnkgZGlzcGxh pMQnyJUfpQyyjIPrh1BreDO pbaZdUQEfoc91aAx2KMHwo0 I1iVOrFdXqEIvpo2Csod1af WxlcyBhcmUgYWxzbyBwcmVz VR74PV0kUJVmJJDdYIUez0U mr5RrbGmfKEHjv7YuXbRnZY dlBRYbha7aCCFegpI9XC0yq UsqhrJhvyMdbSEkCM0nnJ9v mmObaUXwgU2emQiio3d9iPR dztBcsKLoBCNnugokr0RdxU YcSb7cQGPzu86dYdPnJRbrK IVlc3JzeORyd7M2iK6nWB0c MDOkSABkc0kknWTwgcVkpCO xU4qjVJN2yrB5rQEwfO5iyN BgkQ9kWFW1udLlT7Svp4Wey MchZSR3WJL1dhV5zEYoGDXp bWUgdmlzdWFsaXplZCBhZGh ck0qcbwIwNEYKmYSsUo15LQ eibHWgw3UnsiQkYJKeIIDoh 4PrPLchPAI4noRjxqHwY4Vx NQ8uEcZpXOcgfWS0REOrHXr ePGAau63ikcUln5QmdDObSe E5cICeDuTsTYQqQZSnZHNhq IHnp4KbVGhtpEjenHVgfXRl QXMzsfaiF27un01aPtIny5x swnGdzvNtq37wrqZobPd1PY efJGXvHGAlQYF7wO3oWChlj GggZmxhdHRlbmluZyBpbiB0 hNSnb0rbqB6nVUGff7weom8 bSV4lPNagg4bdxcOeOZGjGQ pbHD54jTUnKYFwrL8zuGcwY XSsaT2zaYOpnYIka6VaVmZz RHVlIHRvIHRoZSBleHRlbnN rzbBcPUSvXTPsowRsGX5cAL EwRIP0dWMubQDyoC5fgOvxJ UBbS5B7rHG6zSQqoXRzeSAy zkOizXInJXLtVWR2qR3oCIh kNFAdHXSqKEY4ocBaXCSpw4 Gfe2VqZY9jlKUnSZBwucXWp JVykYUqweQpSJ5zPGL1goPm IHsaPiDpkJOjVu1PLQmdVt7 eKXPiGVdXUEReGMzzXEN0Rv CsQ02sWDUyHQUvAGvhgQuhF U4bJHP0WDUwDTTfI4Izbbz0 HZ6wFYC3nodmDyMpBcRmiEI cDdRoC18xy8d6tCZjMYDgV5 7gh9rdhMpzy2VmQ6MuhtymV Xcde5HyPJLzVYRevLMlW0eb ZCBiaWxhdGVyYWwgYWRuZXh mPgAZyTCxF76dl11owFRwPA rsWYI7zHibNAN1SJDzOOFau X7crXhyTQX3WOV6jpRgsxY4 qKLakB4exHCmrS2aJRH8pxW oO9OaYZFKsKMuAY52TIMfs7 IgdXRlcnVzIGhhcyBhbiBhd GDlJ8igZQIdlLFbTLArWQDw vwr9e57gUFjobFzur4GoNSS zHTHgeUKzsUSvREEck3ibGA Uwt7Gpl5Qxz4u7lSNblNf7w ETpYPI4KQ9dd9rcbCHqyg2f eWxlnd4jBISxkDPqyMFuxSY ysoJ8oGLhctGgCMBlKDW7YB WrnFQ9YUCeltM6ziQmeUQys TZ8ZFEovOFvTHTczkvap1Zv o8EaRM9gRTLtEPFrkyOwbef strL8lSDvqDXzCMMEkSUkwF RlcnVzIGlzIGJpdmFsdmVkI MtokF7lKI66RNLhg2KxLW3b RBYyp0ZratzafnDvXHh2FXV znK8jKQjdwQtmcWUtAVSwZK M8TQDdSmHzhXNqmILhPASwv tfmz9DyoJByrDC3x9G5WLTg dXRlcmluZSBjYXZpdHkuIEE xnXVpN0PblFTqGFsdz2ZmQM FmbS87tlUtjINrfAFgMBNrJ DMgeCAyLjUgeCAyIGNtIGlz GHopQR64tZTjAOXbrB3ojGw dUJYlQ3a7XIS9LCI2ftMdtJ L8e0M5fZ7vTQCoAIRbt7L3T QAaz6PfuWAwvxKvJwMEpBFg dXRlcmluZSBjYXZpdHkgaXM gdGFuLXdoaXRlIHdpdGggbX TpwEhfkZInsULhYS4rIOMbV XPnhWrdx4EdlQ08rRQ9lCFe Z1Y3yBN7OxMLwBHjNQUiriU cCAJkSxX8PNGgX38vUTPgml L2sTp3KEZmrGAuy6NeNXDlr 3JuJcojXGJjYZIxA2XzDZRo JJUvz0g9zSMfpGGbU0qpCSL 7lgJ8qMYcb0UwGSNsn2JguO 3wkKkkldKeGzK8vVEfLY7fp 56bzHVntJ7eCQChWWHqdqYu gSF4asg8tSAjvaLsJZLwiLo cjhmtoDZrpYptTD2zUWybYF HdfKLzcP0tLST2EOX6kaUle bFgCPD9jS2pXUAzfJ1yVOjd cGxheSBhIDEuOCBjbSBteW9 tZXRyaXVtLlxwYXJccGFyIF RfVUXeYNF6ZGF9fQVqqTHxW GLwyrA5DLGnb09zuAK3svVd ImUkEJBnbJJsNmGdL70sNcc iCyCuPLZyWEBdAXkuq9KkBF 4gdHViZSBhbmQgYSAzLjgge DCvGtEoxFJwNZJmGK20OCV2 LiAgVGhlIGZhbGxvcGlhbiB 3rFJcNDZsid4jJHGqmrH4TZ 2iaBhyymF3aPSdHT63rGZiw VkwJWHmie70aJe5ITWby4O1 bGVzLiBJdCBpcyBzZXJpYWx mfEHdQRP4nO5fGGKbhM2aEZ xgdQqbbSQcHXZoazOgkP04F Za4fVRxWgJqLPdvBCrlJxFh s3NeeljpjWZtn1InzIZqj7f teXIgHMIsXRW0yFFgWOSblY FuIHdoaXRlIGFwcGVhcmFuY 7OqGKb3OUzlYPUdy7SrmKNn RUTyGBNlp6WgFTboGDQ5HI6 ckE2daHJnwP00GVP3uJGiiZ JmYWNlIHdpdGggbXVsdGlwb EOgpGMrWGp4mDCelTymf6di vENtLYhjrAJyBOjmy7ooziK uUITGeyKjDNQcxpz2yQCzQW TgtxF5ixJwpYVwzT3eqMJrd XKoalTzPdriVI9prSLbAPyd zuKpTAwtCMFcX5k8QPAfnvQ 4LCEudhFba4Nkh2RjjE5gCE UcrlItDjLFwDGyqrGcf8VrA CBlbWJlZGRlZCBpbiBhZGhl h1mupkRrRJ0cQDImmfs9m99 hfS7cQE3cAMNxiiUug9NeDA 2pHKPhSTP9kZEpnZIjMRVtC TB3QVLnEKObFZJfyWymaPvc bqV2cKTbYJKuSLYfjvMgwrA wtLSpPRKmgZXkmtvzEA44GE soQMYzzQWoUQ5wSQPcMPAdM NYqCVOdtO6wQLHhYPilI1Qc FA63kf4nOTHndvtatYGlITA 4qF3uwzGyvhIitNDzZh1koX AhVXFhXLDuw1rcvOyqKX42X KMjNC9ohFYbQS1zkErxMXXr anZeyUDfEHWbvMI6bC3xNBD tADEgWDEdWLhcm1aurwVvOQ QpvTeatSscbdH5mCAgPUe8o ZEaDMNuOAByt1qmnV7uUVFw GGIeuQGrg3QdTwKtVHUcZdW 8rWSrf0YjxikvvJHioCZoDH Rfwhwpn4u3pDNpNLubnKK9V K1euupgD6O1NJB6txJnZ3Wi YX4iDA7dIHogED89bVUrLDT sSTIvo9IxeBDjgHN6KYSiKq EhEPrjRMNdpFjybBuppmI1a DSjWGOcqTBhaxLiQ86xut2q gVVrWXGrhrO3lBTqMFPuEXL xq88iHEAlLZN3eLAhUomfDx OtBVKsrlIvw4PsD8Coe6Vjf SBpZGVudGlmaWFibGUuICBU rBCjs5Ilp9YiNQglHAOrqe4 nxE9uHRgmvEsvpGNrEIrpiE JrSJ8kRNZwMUEkQG0hHXRtB OYabL0csrTofwGqyS7ac8lk bA0jLRHbkkMQWZKrXZDfygK uwBh0XHBnFIT2wT1bktJnma Ydd6HrjSz8dOIyDqWYlS93y 2qzKQPjfzKxcnHvtEHkGW4m n3GvxQdbRSNrQCBaiHTeYkH uhANlAUAjiiEQqwebY72xYP lwFYfhXCMxA3OgreghFFJho 4HxuXPie8emghadPL4tuffq qyasyA5zYGLujQHtgRWhnPr wAMbfB42la20xFyAlHGSxhY 5ccGFyIEdyZWVuLWFudGVya V3rWPL3PYU0g4xfnS8gOCMv WTTgLYQrp2KyssrigmXxXXA 9tHgmcKMzQNOdtqVFVAO8xJ 9gJRXeEEG0HUcayiKaUEVaf SYuvBqwUIykX07je21hXoYr FAHmkP6bzBocHTCOXh9zdIH 5IZuaC21af00aSlUqUILbbL 2fkBGgHXOrLSJypJFil8Ffp JC3iSIzYSOtZ2Aqj86zb9Vo u8shdR2jCHOim8wntzyxbM8 bDYR0MUJ2RPQ2mCruzRkmB5 kdJIWqGIPaL0Mhz65wl7VzX A11GIXyn7TviMBljcAqZBPh gzLAVMLkEANpRGT8fBizbHn nF7diJBZkYOWlV7Dxe72ha6 GpiS3soPLxtC6vXHQ7HSL4m wI2xOOnHAGmgOZnNS60AFWx j6RgPPBataPQBAHkOSA1MVF fYHd4bQ1fXUpmZxAvvI77sX lqa05oc9Tjm3SciXycvqUtL fQjv3R7PPIzx8CgbMXfiuQh IHdpdGggYWRoZXJlbnQgYm9 4OVmnkKPnBQScOl1tWQK3xc R7pQH8TJQduQ0vbNFatA5qs O9djFYeaL7mJGP1MAF5x8fz BSMpVCK9ICBvzKAbg4IweAE 7cCEiDCPbY3Vpw58zm4VeUB 01EOZgn7YhU1Gfjeu1WLehd hSrTIT6OCGqtMWoq6QovPA4 gFJtBGJpK2Ugq72sr0PuaA4 ctNNipM3aENYmxyEdyRjqFW KbQTJnXMCsnEAzz3VutDF3l IVtPUPnV7Mmv35eWG6xKDxy FnQxIlQstZ4wyPNhMBT2ZsK xXU0pNNRydHEciTBpDoxfGP E0SQTgpFxpYOQGCbBfCCKoH MouTxIpu4VgkyblBwodIYB2 ZLZmlEGsKUItUt5sHT2tUWT eFBT3JH1dy7fpwrsvZSLkDB ZzPRosszSuEWM4HIHcR9e1N FWhpPsxtEersyD2sYLcCIEq BBAby3CnvNAvQDYxtO9nkjl uSXkiiwZyHPY5RQCrVySfxX dodCBvdmFyeSBzZXJpYWxse ZXbAOF9hE3eMGCrCTXqZX3T MkJsMH2oDZYNIyMaGvHfRJR fQKHnojTbC0KutWOfb9KamI ippjIjXDByxkIPDrKfUKD8P EFpt9NhKsfwWIPhzLOglW1f suJnWDBhPKCvV6y6DH58RCW 6WYFxzkUQBoEhMGI0FKDxkc 42aFn2DTDlp1O1qCBtUX5cP PKkuvc6i71xzN0azBVnSRRl AS3ov4Z2pGBqhB4zhYFqgCK zqsF1oTCikKVgOFE4RT1QNW AfFgrcRPLsvgYoCSDmNPC2w K1hVAzzyFhzpBUnMVcstLUz FI2pOFCnLMJkrBGvMAJcunK IUCpaADEuC6LmN1IxwhRetT KtDESphhXuz4yvEFK9XYDml ILfmCEwAeWbRfclCAN8r7qd CSJqyIJsVPL1CNwrdHOwBKB wMDIgXFxkYiBPVlIgIiBaUj P1NOxoFUEyCPa8ZOmdW8OSN GPuWLF7ISA2RBXjQmD5TTv5 XHTLBr4aRKV6NYH4Ezi7XGJ 0MpV2DSkjnCAcSJzlDwurPY kcUSXrqOPvAXxvlcJ8CBZeF bFtXj0dDYXwoxNnRPzwN9Ul hpo7ZkdwJKEgFySoHJgeGsM tXw8qVvVfCPz4JOZhbP2dCy 7pjLEisM5lwBBvJEucLBB1a KDhZKWwlSqmfxDtlpAiKV5r JPGsD9Dnv0Djw03ydmFvXhN lUMVcQRCkIiLoD3nsv6JhZF hbN5EvNG22AcGapoTaIMhpq LZ8PPvlAP01WTOdNPUkki5j bV5rKANzeBF2bHOoKEAvjAp qN5Xdc6Pnc41fgKJ1gOKahS Cqm8j7xGHjudKhfSQmB7elG TEczQWjtASwFlcqgj56ptRt lKXcWGIkCcP1rLAqqUIqzHW so8CosD4xBCSgXbU7KOYpRr 4bIMRcEFXjhBAjlz9mwUJml QJzJQKaKWvaNLPal446gVC6 dCGsFM5mVLozf1TyqHvppJM kbkUcNwsqWbnwPD5zSGMaEZ CpBSZIeWJhHPt4QIZkIEiia 3VyZmFjZSBpcyBpbmtlZCBh osRpq4JqN4zpML8vxOOlb0R ttGSwvBoxu2DezZaiddJbKF CsGBYhc2UdAQmnAJB1LTbyd 8bvUoO0aRuxB3Y0BFX7hyAs I7LqYP3hENTqxTImPSugqTR bKZKlXrPdnIRfko1mbJljPS 9yCMR1vlycQjU4TpBumYLrI dVqtZPhDyYgM08fIUVOTZFp PSBsubByuWw0MINoMYV2dT1 fqiEbroZaa9JdmNq3kGWwFt WqrLZxAZYhqtICbbhuU61kY DwmbDioDOWCoQDhSOB9vYTd inAlGVR8wtAxK0BsuHSlVJG fwcEAWXJ6jU8pIPWjLJN3CB GhtpOINL3KFSqojvMhibWcU Z80ZIJzjdZjn0JawQtjstAu r3DmwCkxq7BaAIOvBYfhV5n 1JJKjbSgiGKKquu63cFb7IH Cdm6Z2mNYmpUTkQQX7SqFHF QPniRuapjGsJBVpjVDyr9Tw tIJ2eCLhWGRuB9Zhj56yMF4 rVL5mASA0BDIymFIgp5FpRC Yab3E5WFztSGQuH2LsD7Bnl pGbdPBtYTJznlLsl3tmZYE9 XHNsbXVsdDBcZnMxNlxwYXJ 0k7lrYLIllEUxEXP0DZdsbL QgNTEwMDIgXFxkYiBPVlIgI pVmQvL2BYopSVLtOPc3IJzl H1WFYJAkIJH5UXUhANf2DbZ 1ANq0FZMOMb4oDLM5KrF5LW vvWMM7ZwQ8VCssxZLoBOqtR mwgXFxmIEFyaWFsIFxcbmN9 EFTpZgAbR4UtEDuvZKDkFeS xSMpjn1VnLFNByOiaho5lfO GyUSJpFhMgTq3mPEVlU0Ijg qKzIWbyTHKdse1wyWseMPvs JfPhCKLmi2l2iJZmQOYgAF8 1T8RubpLhDMegXASmLHPerV 9fNS05tVJhshZnbmYtKvKpT eEtwOras1JjWKTwoJcaazJh YXJlIDIgdGFuLXBpbmsgdW5 lmurvojIrKIZhuH0nsSZtCU ltMY42fiKsMaPdi2mgqpvzH XAtk6S8OQHpDIQnwQXvvubk Nn89XJftDL17CJvlCGIsgdW tJO09HMqbNM58UPucNXWynP 6wAAKgNCJlaZYee1GnfLZrm CSyXPKmyfskm6w8aEWafpPc GXTlw15uBeIjQr9hyBHgm5B zIGFyZSBpZGVudGlmaWVkLi WnO9KiP9lxXU4xrRIlg7Bcl Bn7uHYrDSyyRWImwJ7imZ4i F6Olu1G1bNMnNmSwYkVbBOB kneivOMVbTeA8YDFipCLdKR O5SM8shCxwBGZlA2WqS9Wyf zF4YLGijd2= INTRAOPERATIVE h6mdaOGwXYHehCGUHWEmMhw CONSULTATION (test wetQdOGLwfGTxM4AjadedTY code = [id number]) lcEA6aZM2swOthkMPzrBEgK A4HKZHsVqBuYVSehJSzysEb SoYzHNAspXZsjEE2RWQeOR5 qcxbdOBsqLTzqJGTjmrB7IX WwwZNaY0ZnPNWcVB5jquazJ YI0FUbsjX1cyqJNOrevUc8t dHRibHtcZjFcZmNoYXJzZXQ lOEKhfTdkDMMlUPx5aB6RZi btPON5WISNLmfkTWGrWP1Mt 0ozHOZcgNKbQDJ8LRadiHUa VGMhWJOmIJl4VNBkWFmksCH yWY4enFooXeadeBprk5JsvB BcXGlkIDUxMDAyIFxcZGIgI R5WAtNdGHsVTZuyRlQ6QsC5 BFt4LWYKGwViKhHzZexuSFX 6PefpOCn5SZl2CJyLIyY3BE etRdEhDyIqGLQnTOzdQHa1Q DIgXFxmIEFyaWFsIFxcZmwg HRciH96cfXtcdJ3rUE2vG17 ugLIKyPOwaJMhMY63wQPmNm vaVVHhNMioBAEwE09af4WLb 6FjCQ7OAUt1oiIxhkdbtW6t EYJqxtWbVAwqsLJcC1uzPtX eJTQBA7LiNlUcGAsJGVvHNH dNLCBSSUdIVCwgUEVSSVRPT zLVIQCAZ0TMBWMiZLCQK6qC BU8OGdhpaF6pNFWnODXuJBF lUULyS9FCRGhAGJ5JRgCVMR MdYp0UVQMNRHlLG3IVEFVyJ 5MbN4EFV8wFJ76SUqAyZB6J RSBUSVNTVUUgUkVRVUVTVEV EXHBhciANClxwYXIgDQpSZX I7jHDyOORzbL5vqJLaXEWfT SNsScASp9U0SAcumjOwfPC5 GnKnYTWVJAoanZasnZ9qTXS yR47pq4WTq6CmOZYuWPdae1 nxmEinj4VbxERgFFipTTLcc QIdNOquhT8yYhYnp1bgeYi8 NPvsyrQ1SJEych7WImkqsJ2 wHrRde9nmbOz1IZERRfivfp J0q1xmwCams9AzwHCwMX8BU n0= MICROSCOPIC s2zonUJiGLImaNC3MgHzLGL DESCRIPTION (test code lm1ldf8EzkNNwhEYmROzqxZ = 3371) LauwPxps67uIM5sN96SL4fO PUwKxE6GGCukeA7Wsd9EZGz LCXwhJPgB849a3ece6diemI voGP4hNtvYCHgjffnIlS3LV qhIQKebswvFZs0WAsqXYLsw JK9ZNFnjHHwT1KyXEVbRL1v zod5XJH6TMyjOTWfMoL5QRJ ckMTwSLQrcNccSQjzx502WR G4JyLtRVTdwgZcfIxuhS5yU sZdTMHQGEQav4ZgBNTrTYEb clxwYXJkXHBhcn0= SPECIAL STUDIES (test y7yhcGVtMUGoxDS2SvIiYTV code = 3376) gc1jen3TmdJDzwBPtTXcgeZ CjmbWugd08rUM5uL65PY5rX PSlByU9VSGzolC2Etj0CEOj QINnzFThS488BDEeAGZbbYn oaam5zO04TSBecP6juEZhZK cvjnNiNMtrkiDzkuNnAyx3L CD1bCurSUZwrrzyJwA2HWfp KVFncduaDRv2AQtbJMYfrIT 8ICNtjHOjF2UbVFNdTN3xxx i8XIN8AGncDMTgXeG0NOAda SZiKDXljYwpBAxny509KWW5 DgWnLLWjpnDxhQdgmY3oGzX bGQgwNqKhZY8xC9CnLOLqwu YyuGKwJRwweFKin1Q2EYjrm oPasLhxxUhrjHKeVp7mlVHc i1YwvZU9BPE2VKCrVoCbOTS ebW6gzBIvUIolHSPaTQ3eUI oxBYK3sU8yDOBgnCduJQVfD AUeq1FetHn4WAOvKfTTDYpu EJJfbrTmQ5VbIIxsUK7gBVJ xe1tiCKRvghZkrhGkdGMbWN 61JSVeeRNvOLZgpH1wJmKlu GFyXGZzMThccGFyXGZzMjBc B2QiFBGdn1SzEDN6GGLoPTE sASF1JUJaICL3yC5gEXVvyW g0fELucKJ0GXYctjFpbrEam Vmzjgkco8U3KZskiy5rxVGw XHBhcmRcZjFcZnMxOFxjZjF ccGFyIFRoZSBpbnRlcnByZX HjeEsfcbHfWkG4cHdtBQCfz 4MwxC0qjLLoSOQviYfbRQLz VHFyYfVcrU05kn6vfEG4u4G mRI8ca2HbrPDpflUxcADjjG FfKPW2NAhkbh9mzVSjFHZas iKWr373ah5nLVXcgOHjpeMP xBFavI6mPGujLHqmITitsPK jKKscz1icTEDxv2o6kYGwIA NpymTpa8nwBQojjiVpAPVfw EEzkWQzJEInf63oAWlvwBav oFplJCEmu9EenFjew9NwYjX dFPfew8EwR36tlLZeyXGzuL soSKLzsjLvPOIia97gr1ysR VNuRcG3uWOkgGL6uLGjfNGh b8UsyZerOCQrm2rgNDEaey9 nssohfTPkr8ZdqM8pfrdkFU rvqYQanrIcNVFei3f0iTWdH QPyKSRxGEtlxFk7YBXwo315 yu5avlS4uJRgGYI8OHlmDTK sZSBhcmUgZXZhbHVhdGVkXH AkyfEaBDZvhaGPfS85jz1ly UL0s5IpJZ0nv7FafPQ8MUPe ojkmKPjvwIBavXkmXrI1OOI ppTBtMv3vkSOvZXT3NZLjyY xnhiPYgU3oISXkFCq6URHgG qGiLdtmsiRQTIMtR4DpKNCo lpOfwxrrIEG5uY4zj5h6FPk tMg7lAMQsjtfcd6zhnxDqnZ Nwp3CjNEQfjqMxx6XzBCYth dVccXByDERxrmOzcs8ocaXy MHLvAQOkF0OhufnehUltpzW 3ZXJlIGRldGVybWluZWQuIE h7UMxtlwXnh6XmDwSgcnDbi PPodgZkZX9gTMKboHCtjfSa BXW7NJPqJTHZAuXwSEUiq2Z rYO9tWRNgtHlsCVPxyI3vx0 VyLIQfi72bAUPzNIWFGSYej GFzIGRldGVybWluZWQgdGhh rRGznSZuCORgNVXgUZ6vKHU fhuOkuUJgn3CfiLYffoKll1 ZlexKxYJUhDGY5KdFAwUGkl KUbfTZpkxA7s4SnIADkstWl wWpkpYYmgGTjoCQid0Tzbf5 gGWKtm5tarQyaSD3suCEtOY ByZWdhcmRlZCBhcyBpbnZlc 2VbC6I1mA3pPJoch2ElRs0t LIBiy3DdmiRvPnYBfJwpLMn iAr4hQQFcwkwomSGsH5QblJ lmaWVkIHVuZGVyIHRoZSBDb QemaLOkiCUXHUKgmuY9k3U1 FVhcrQYoikLzEU67LOHeMP8 udCGokPPdk3FiORn3KLNkJ7 hJPI21XUauUBWrcBTjbHsgy ZKvQKQcPZEfirLoje4azXgq yBVod30irMH6eWQ8HCEqtP5 qH7IhHCvnEn5yUHAvfbjlbA XnwLzqZc6goPMhgM== [id number] 12:53:55 Test Item Value Reference Range Interpretation Comments Case Report (test code Surgical Pathology = 104) Report Case: [id number] Authorizing Provider: Ronaldo Owens, Collected: 03/07/2022 09:04 AM Ordering Location: [facility] Received: 03/07/2022 09:10 AM SERVICES Pathologist: Kelly Adams MD Specimens: A) - Soft Tissue, Other, right diaphragm peritoneal nodule B) - Soft Tissue, Other, omentum C) - Soft Tissue, Other, appendix D) - Soft Tissue, Other, transverse colon mesenteric nodule E) - Uterus w/Cervix, uterus,cervix,rectosigm oid ,bilateral tubes and ovaries,bladder peritoneum and pelvic peritoneum F) - Uterus w/Cervix, falciform ligament G) - Soft Tissue, Other, procto donut rings x2 DIAGNOSIS (test code = [id number] 3220) uZzEwMzNcZnRuYmpcdWMxIH tccnRmMVxlcGljOTYwMVxhb rBgZJPpqZCiQ4FvaibmATdj PC6iUX4xiHelpOMjmGLnITQ nEcXes3jdm773fKYgm5fpJK XMogvixSq4tNjyJ95on5L4G dgvC94rqESzNUK3DNReHEHw pRIiYGTvEKE1TGTbiTVnK0t iLBWpOC7soseqZZtgRBsfSH GtfHA5ZUNkoKTuY6EvTHPaP UtrZBPemxr2FvQjRc6ukHAp eTcyMFxwYXJkXHBsYWluXGZ gVtHqMC2mWLMFHGBGNdEWOY wgUklHSFQgRElBUEhSQUdNI B2ISPXISEijPTpOPCJVN613 NAKrzrx5DUWsIBVAMYpKHWv GEDJNFULMVw8TKqZEJLHQCW 1AVOYoZ3oFPWNJX1EZPD0GY LUDUGMgN6QDB0yOZAKCVIsB TlNccGFyXHBhciBCLiBPTUV FGLKMQYWUMRJWGVORNI9YXI qykKKjRVBcOuCgECkTW9ymN 9JOMSRjO3YOG6ZKUYEWVcYL Sr2FUSAWKFLRLCRMQL2EG64 UKI4BTiFNHSmTTTTTG0ZMWP 8YK8paQOUmnKPzHZFpDLBDW ITCCLvGAHGZFCWSPePZC6VV RQq6AYZupix7TGQsMZTJGWb MVXmWSVKIIWMITf2AUkSIID KBTI0XVZLfFO9SA2dGEZ1QA GKAGHYMMYpPPIFIKTTDJe8J WYbcTXReEtz1YjTkDRJCZzB yOZURM7KLJUWYCZiLCNOnpa scrNRtaVZaWE6jRBXXJS0KM TWRRDqgHIPBS3nDLDJQJDeJ OUoIVVTWZ8GwH5DIN7zMS08 BIFxwYXJccGFyIEQuIFRSQU 1OCjUBA6RlU40DC16bMF6JZ 5HZSVDFMBWbKr6IUQlIRUND HAXEN9rKIrvbqEOnGOTwKaP tIENBVVRFUklaRUQgVElTU1 ITYQhYRq9VIhROFQALXVkFL 6thW4IXKHQgL9KSE2MCGKVV NrXYRc9XIOiiPZOmYeh5RuJ sGQPGLEZFOTNFUT8JO77NFG 7THmCLFMtTBBABQ0CZXG0DO wBqcZJvUTOvPAheMYPoDS0e VVRFUlVTLCBDRVJWSVgsIEJ WJYFHLWOCWUTOGUcYR8ZYSL 0xQGZVWATjJW7IXE5NXYDAC DDcNSJBT9EKO8nBEM8NCPOR Q6oDDduvGMMnllBGMDZZTRJ KJWBBXbeOQ22HZH6tERGXOC PMEyVWCUDOEW4YFVCMMTGKC gFVHQ4GXVRIZAaDZHboFFnP SPOXAHHVL18NZONRDDqBLRI UKQzzP4BSJKjFD50nF14RJB 9PRICBI70VCCVNOEGBV5HZI 32XZGVbBoLXWNLMZN6XQxwm YXIgICAgICAgIEJJTEFURVJ BTCBPVkFSSUVTIEFORCBGQU lTZ6RHNH3pYVKSCJMfyMOtG MFzBnXsLVzGS4uhW9EJDQYv Y4SEV5ZQZPPCEiFWZy4LQVK UERDSIEHFKH7TU86PWA7MVk XHPLhTPLLWM6KICE0ZKaAbk RUuZHAbJbXpFKEaMJ3NB5hM WV9YQHBFFd2FBWixU8ZXXyP TJCAcQ6ZiWbfQVIAZLtHJGT 9WQVJJRVMsIEZBTExPUElBT iBUVUJFUywgXHBhclxsaTcy MFxmaTBcbGluNzIwICAgUEV WCQJYJiKOWEgrK90AUSVROR MVUTIjMMTTFFEQCZIDA6ROT XSSNTUMWD5ZK3zsUUQsgUel XGxpbjAgICAgICAgIFVURVJ CGrUINwMsI4RXZouJZUTxel m2VEKsPWJUPYwFRBzPIYJFV RPSGh1OSxICOBPXKY0LYQUm LY2XS0nBNF7JYFXNDVVEJaV bC2RRC8DTRIJQHYdsLOGuPv y4JrTyNJFGMSQBG2BCDTIVA IHKJS3GU5mgUPAcHvplGRGj CrTjRADLMD4SSIFQZDGRUGX SNUzTGEhPCWOwPaYXL6vVY4 VORCBPRiBBVFJPUEhJQyBFT kRPTUVUUklVTSBccGFyXHRh EjTzWP6CY00XMEZXMH0pX4v USCBMRUlPTVlPTUEgXHBhcl y4BYXmYESBOkMRWASRG8FFU EUgVVRFUklORSBDRVJWSVhc cGFyXHBhcmQgICAgICAgIFJ RT7DVC5sECV1WPQQOL1kHSt hqZOXcsBFzVG0wORgNND0HA sEKLYHGRSSIIQSnI6PYN5tH B87MKYmKDOyuFTCOTB1TZDI PL6JVJLCPQKXIZcnRFZKRU5 5TXHBhclxmaTcyMCAgIElOV c6HPzvXIaSMNVYLW43OT23Y AzGHTVSENXKbUI3MNURXCs5 XWRuiHJFIPCZLG24GKLXxmk AtIFVOUkVNQVJLQUJMRSBDT 1bGRfjLEB7FG33IELvfTYYb IOVEYKVTT0MXCIlRJVSFUjA WQt2PRQOYKbTGNzYuN0LwBM sXOQGmGCcVJNpcLc7EFVGuM FKoLlcsvNVcLFHbAGd8RQVp QKIURc8XRC7QZWKST2zYJyt YLF0RAeoHAilhBW1KG9cPYV MfTetuQXROM8QskLUiSNJoZ jNwINJJM6SXJUDIM2qKVtnG MC7CKtiJHgqxIhGTTENYZgN xIh0WSRBLQS1RWUVcfwWoSZ AgICAgQkxBRERFUiBBTkQgU LRSEhkOSJAVFczBT35HUC0w sTXdFKOnXbVwAUzWK6grZ0Y QMCByZ0TEV8BTIHEECgGFRe 5VTPWTCWPOHTDWPE7XG86GN Q8XIfUEXTkYTLZVU4HAQD8S M8doYLJtdXMsXBYaTUYHCFY BMj2XPAMFLDkRKZGPKEygYH mMMKOMF862FAKwuka6VOYuW PKROSxNJWtHOTOBJGNOHw1F IfMCPTTRPE5DSZEtURBzwsm cCSIcQp8eJ82OK76cKVJCBi VUIFJJTkdTIFgyLCBFWENJU 0lPTjpccGFyXHRhYiAtIFVO AtFMAXLGPUYSOPCCQ5bLCvb TRG3AX74VALbwJVRzgUAcBZ 3hD5RBI8PSLUkGEZtlCSCFF ANGD96JXYHCFAXXREMODLTP ZA0RL26WXY2RKkUOIZqWFIJ LD6VXMO4VV2wzKMJtmWJvJF EfW4nUPD6NZBCKH1KRM6zXU VLVUHXMCLAXDPcBWJ2ehGSg ITNbbw79VHP5RzGyc4B8AXQ 3XJFmOYUsd8enLXAakXOsOm EwMzNcZnRuYmpcdWMxXGRlZ wMpx5rtj921oCNfy2xoRFZo NkS8dBFeHNLhaHTxK122FNG yMXwkl0upu0SsSJBzhZFic9 H3CGIHpuksnMo8nFtkU80ym 8C3VwnbP2nrPZSiHTPgK9Nu NW4cAZMbXrl9XSX8IAA8ITI hLLPtX3UgXK7jODQxiPPsUK h6o6jvjAvtZMKwZPN9i6wyM QzmexDcMJ0tbu9zmJf6z6ou vwRpDVZzIRRivWSTPGMhT9L aiIdqQd0zqNm9sSgsEbhvZA M8Yqb0PJ0hdy93bqr8iAfdK HFegpxuDlM3HKhtFSSnonkv JIb5RYuoWKJhsKA3VNWuxXK eM6HaVQGzJJ1ewrx4XIC8PF rtLVDyHhK7ZTEkaTSrUYTiu CgiIEboy550LYQ6CxOlUL6l N3Xtd0L2wF0qyYRtANJlmTZ aAuOdAITlza4leSGoCUyii5 AhTZQ5vcJ9jMDadAAbRDKkD bY1KDgfVW0onn48ISSqKYT3 tr2enRAvrAjpqjCegVWxNAc zO9OtOBVzp162YQCjJ1LrGE Svj8E3ctZaQtMoUYXwnRO8v gC4NBGuTN8uadugn5jsXCyo FUjxJWLuogO9zgW1FYSkhDR eB1WnrI6jMKHhTR1ammfme1 fzNGD6IFopDTXmHJS5AdEnR VGmy7Kunih0AtJwm5OoiVQp ZWpjR41qk576TCEgkzDoT7y wbGFpblxwbGFpblxmMFxmcz L8WVOlNAggxcnsCXPxRBkbU 9vnPmQiQUGpyFqcICmwg5Ps XGYxXGZzMjJcdGFiXHRhYlx 8WARrdMMfUHEhEqQyS7ksto joYxRONMGdn0qkJ7fxjTEWf WRnK2TeWIjkwjKaZPmiZSmy XlLdGZh9SL96SfGsLFWkgw5 9 SYNOPTIC REPORT (test OVARY or FALLOPIAN TUBE code = 5765) or PRIMARY PERITONEUMOVARY OR FALLOPIAN TUBE OR PRIMARY PERITONEUM - All [id number] Edition - Protocol posted: 07/05/2021 SPECIMEN Procedure: Total hysterectomy and bilateral salpingo-oophorectomy Procedure: Omentectomy Procedure: Peritoneal tumor debulking Hysterectomy Type: Abdominal Specimen Integrity: Not applicable Uterus Integrity: Intact TUMOR Tumor Site: Primary peritoneum Tumor Size: Cannot be determined: Largest nodular area in the omentum measured ~ 5 cm Histologic Type: High grade serous carcinoma Ovarian Surface Involvement: Present, right and left Fallopian Tube Surface Involvement: Present, right and left Other Tissue / Organ Involvement: Right ovary Other Tissue / Organ Involvement: Left ovary Other Tissue / Organ Involvement: Right fallopian tube Other Tissue / Organ Involvement: Left fallopian tube Other Tissue / Organ Involvement: Pelvic peritoneum Other Tissue / Organ Involvement: Omentum Other Tissue / Organ Involvement: Uterine serosa, pericolonic tissue, appendiceal serosa and mesoappendix Largest Extrapelvic Peritoneal Focus: Macroscopic (greater than 2 cm): Omentum Peritoneal / Ascitic Fluid Involvement: Not submitted / unknown Chemotherapy Response Score (CRS): CRS1 (no definite or minimal response) REGIONAL LYMPH NODES Regional Lymph Node Status: : Tumor present in regional lymph node(s) Number of Nodes with Metastasis Greater than 10 mm: 0 Number of Nodes with Metastasis 10 mm or Less (excluding isolated tumor cells): 1 Emery Site(s) with Tumor: Pericolonic Size of Largest Emery Metastatic Deposit: Less than: 5 mm Number of Lymph Nodes Examined: 3 Emery Site(s) Examined: Pelvic, NOS Emery Site(s) Examined: Pericolonic DISTANT METASTASIS PATHOLOGIC STAGE CLASSIFICATION (pTNM, AJCC 8th Edition) Reporting of pT, pN, and (when applicable) pM categories is based on information available to the pathologist at the time the report is issued. As per the AJCC (Chapter 1, 8th Ed.) it is the managing physician s responsibility to establish the final pathologic stage based upon all pertinent information, including but potentially not limited to this pathology report. TNM Descriptors: y (post-treatment) pT Category: pT3c pN Category: pN1a pM Category: pM1a CPT Code(s) (test code [id number] = 3357) [id number] DdezWtvy27rUO2aQ46HM4oY XZaWdS4YVFxiqN6Hje0NQLq SWDbkYWbZ984f3njw6wziqZ kaZD9qRdhPRMkaowfBzD4XI aqZDTxlcryLIk1WTuiDZJch MN1DLIdnVFyS1HbYXVfWW8c foe4ALR6MAleOTRqEyA8SEE dvXKkCXMlfIczVNqxk336WT Z1HdJfYKTtcbCycZuhpD8iZ qVaRGUMWuV2ZEBrCVhbSKau ScP6PDb9OeCpDrU2SYT0TQn xAJMtEk5iHGitAQwfqYVmAC UlQFj6KkI0WDLnbyKTUnD9N BThTAdmIIFpBD0kJLjoEHu6 EAm0WiLiNwI1KSS6LXK4Dme nXHZzPa9pYNwhVURfsVKmAZ inAGg1TiH6MDUhou5= GROSS DESCRIPTION b2hzaTUyYVTylEF7BkPaYAO (test code = [id number] [id number]) OimaQsnw93vHT3qQ11MP0cE MBxFeQ5OQIvmjF9Hjm1NOWb JIEpaZFeY735p7bns1veasR jbES2NAHgCYDhP0QfNE7iEC ChuEIkA31bwSSdMEA8GWNsR YKwmBDrMVSyINZ6NFQreIQb J7ryWBIpLV6vpwnrWHvaXQw lNQDbiML1FEXorKWtQ9MwNZ BpSWzbEPGtdqh7ThHnZy4sk VQdpAmmNKnkVDOga1axRKKa jMBcEFH0OZhttDNpQNHxFYU tPUf3SMBcUYcawRCySM9ylM jxGojbwLrth3KskAJpHMdcE TKnAUQeAIoaMTDaJ6AQJQXx BfY8VkG2BDTbFWp6RYl2LF2 XCdNoOGLhOOQ4TzZbOYLaGQ q9WWlbEG6RBNO8PjW3OBt8D aC2RMSiPILhOABpCbPvTWDw QJvhOtKNoewljAKsNJ2duUv wbGFpblxmczIwIEEuIFNvZn CuQVslr3ScAICQxAwrnh7sd WTvEWHcTcUzBY1oEWOlT7Hu dmVkIGZyZXNoIGZvciBpbnR dCQ8jSAIoyKl5FOGzr02fdQ r9MKWdj53coZBdFIxqRBW6u HNqBHOtdYsiwwDdihCoPA6x VKVmY9Gmg9Kdy59nsoSyIvH zSYUbTROgh44gvSW8aXVrnW EbCE10kHBwCgStplNuWDBvc a1doD9jNJAgNQN5WZ4hZDEp uPNfUGKdJbQ7sWIlwXMqc7b 7tMOfDMsukRO6XV3kgotsw4 WxAlHhTJSkpuBgnaXnv5lmK N7rOQMxAUBlnFHwCHqmWVR4 Un3hjKMrUNJhylNhfjQfiXC bf1VcIgIpdqFaUDVrZMu9h8 vdLUarDBZjh7ChoEKcAIOVH QMhNuhwBDFmoALgMVzEw1kd dNnun6QoxGVpVNwcZBJgbUC jRGrtgR0nEjHuy9lzgHq7FJ daswI1IGXykd93CWnzVRDpK 5PeL2AyTLarKZI5XPXuBuQc KOApIF3IYeSzFYyNFJfbQkJ 3XdT1JFb3XOSYWaPhCtLgPu lvSMzwEXZdYBp4SWk9WGhLT sT8LFt5Uue7JHTvHPQbCSzl BYj2RFZoBFqerPPpVRRlLTF iGKjuKDibS64vQuNjRALCTx XTt5Z0DMJxl0C2MBisJ9VsH XIuXHBhclxmczIwIEIuICBS FWZdzKCbBJZwopJan7WrZJk pbiBsYWJlbGVkIHdpdGggcG I6yLZprBoeFD7zyQPzSLAtK 7Rmu3fpffXfzT3nPWJfOP2t BZIkf3D7COElf0F7BDsfy1F oZXIiIGFyZSAyIHllbGxvdy GlJWM3kSIdeMIwwAPxw8Zgy 22adlQ6oKFbANAurZGnydie JNAqeWD4ByVgqPKaPGJcBWW lGu54ICfoKMT0YLNzE17pQC NIoKSwi7AiP5tpFC2sbSBmv 7ZfnLBtsGvbk2XnbLinijPw KXUaEOMap1QoIPdkPFVmESZ zn0YvrPRxe0AzvHOwKMjjbU 94GULmeOEld6DkCDSqq10kN RJqv4XhnWKkLE7jGITrCBPb VEqfdVijC7M8mQQkcJ2gRUZ oZXJlIGlzIGFuIGFyZWEgd2 f8kOGiGG3kGPGiQZBaBXAjP DEeDE0gDCOkFBGamPDpqcgv EUW8BRJiFDB4CBClP78eTNC CkKHlQ3Q5ABI1xwDlA5Lou9 XynQddPV0tZFWlYTMwYVMiN JOcrOZerSF9riTxXSHuBqXh BxC7jBgdONMpLXWmPZ0eYK1 jUH0aSS60dQFfRSlrm9nimg YpWFWiQUzmKO28vXAtDDScT NIVKNUuCCFcgrBsyOk0LCCk NKT1wX6coeAhnoUuk6HsbRx 7rGXpUXNuOZTtwKdhj6ObSP IvurfrXWMqO9XcpOisjqPru 1WyStmhZAGtHtTiEtU3BNUb hTPax0ZoaZN1kTKeQVUcF5P lo62jDA6pLN3eAW12mO9wTC FaiPwdH9ZcCUCjsgIjIYIcY IN8JIxcnOLqLKP6ELYrNAgy BzDsmqVfDO03ZTEovbLoo5N vyLdncrNep2Zbjr5rmAbqty QiltFzRGZlvUtcM4PeOXQmz oKdHPWkXTQ1YIbhkQEgYESp Qk3XEiO8LIVlJXv4eQ6cSWe npkTjytBwGT04IMAzvzEfo2 GyxUxhbnDab9Isb35kqqK1q EnrFNJkLBVypcHwBHTcV0Wx k7M7oVVqEYQbmxsnMLWrYdD kqWEtUKZxixfvYOZdL9UkQ8 CfsrFhwJWdIEOpqdKcp8rwE XD4OCRhbOKcmKMfSwAtPjfx RBI9w5mvVEEmoMZjKAJ9HNv caWQgNTEwMDIgXFxkYiBPVl AuLhBzCqG7IVcdJFUkDDj5Q IprP2LABVRtIUW0FLF2PpId XvW7KJo7NMXDVr4aZCU6LUW 6CSKtMUM7FdO7RRcbgLDxKR xcZmwgXFxmIEFyaWFsIFxcb lC1RRKvDoEsCe2uG82meLJM nFVcwECvQR69iOCyZlcpOIU eMxGiFMyxJaHjLj2wOsUpTD z3PJUrbH0uAt3psAGhwV7eG JwaOyCgVLRkq9a8gXS1vFSd jQT6xJUqtVbyHD1arLWmUZP jE4Roo9cnzaJrhP8kNRUhZK 9tOTRdj4X8QLWvf5M7ECptr 3RoZXIiIGlzIGEgdGFuLXBp ixzhlV38GXZ4UQAinWJnTNy 4DKi4TdNvV62ehA6dxIRnC6 RxXCZdXIEcAQ9lwN6iXILhM CBjbSBpbiBkaWFtZXRlcikg h3b1uKErOEBbJdC0AEZtKXP 4XEYhUXJttVIswTBbY7siHP UxZQRiALBeGP6ozNtkNC4kU PagZRUpjt9wUSPepcE6UT6z xVhgvpGruvRmt38pd7UhWFl edVavdBYrkIgcs7OqwPE6BA 8ts4wcsDKzmr7qnKsfnhIjY C4odK7xIRTpj46aiDAezlD7 iALuPXRoQH6qTP3nCRpzSZg fLHJ8QUI4BTPxsPOat3fhgt 4gIFRoZSBhcHBlbmRpeCBpc pFtPMNzGVsheLChUWP1dY4o RKZuxL7zdgN1LFVcUYTeiC3 oGA28HBQwA2LqKC6deVPaxN YaTOD7rETkFJadHhN7xKAxk Divy3R6TTZsHZRmER4wtTms q0OheFzfHHReyTMgJVw4PpJ gFGsyAOn2oXXsTCakACKhzS K5VLNvGSSuWV71SKXqQnTlU HmyNHboxQqgaYzqJ5deHRJf CFttPWQpXvSuiW8vOxWhmuD dUS94ZIZvrdOuc8IdfSmrwb MeDCRwDJY7Dc9xhVCjIA3lx CBmEOXdb3IoyjG6QFRvKWNw j9LrHT2mIQXwADOxtSSzeF8 hgj0hdOUpMSXyofXZvrgiG5 9fVExqlQzhKPQYaoHdQ2Nus GDdwRziXHgxzPQrN4yqEPDs zzllWQKrS4EirTpkupBfj4Q dIhwhQFPgNcB8BEZtw1zqxF FpCE9lumabruLoplIoEYGaX WSiFBBdwDBwP0FvHHS6eCTg JVFzVURxE4IdpHOlJXMrUeV NFTNcFCSkipHasYr8ZMWdbs 6mugIaQMD9sD5whyJ1ylKep mNsdWRlIGFyZWFzIHdpdGgg mz6skDadf4bkMLZovECuFBE cEjLoC0RyAHsTv1tavPvzi1 VjdGVuZFxwYXJccGFyZFxzb B1hUgPit8comDu4FYfcgkD5 HRMbvi33CIylUOUkJ7NrO6H fJVleEJY3LCOnDtHxXZQiAH 7RIaAtUUrSIOtwBxZ3MfD1V Bk9YYVFLlZmHbIxQpanIUbo VbavCJe6MNx3LOeSIeT0LDh 5Pjc8NFsdFSIkOMpvGLt6IY IgXFxmbCBcXGYgQXJpYWwgX HcoG04gNiRtVMRMTvQCb9G4 CSEtp9O4ZAooO8YyZFAjJPD hclxmczIwIEQuICBSZWNlaX OzLJRfmtWlm8WuQMsakkYpC DCpdXIjIGdfoZidtUZ5rWVh gIrrJI7bcGDjQIEvR7Lsa2d yazZraD2mWRCpPK0xVKMui5 S7PHYdc4X6MWpcc6DxQICpL GQrSMEvZPOtxk1thI4lYLMs DHGhu9giZZYjg6O4ZGTzpeQ ssDIrwQQbbFVem2AnnD3zGT DjIeQ6DAPvLaA6XIYkOiSoc yXfMO9cPQgfLP2fCItwUM6k FEAiGxOqB9MgX5itSQ0ixBD jv9WtxEs8aTQtKVqsXPIrrH 2bqD1sN1Dgy7H2aIQzGHAit 8vvoXxbg7QexVAhMKlqQIBm jNDjQYvhdI3lWyXuw9nonNc 4UOtlhqR2OAXosx02SYkkGL DhA3GsI8VnRZpuFFD9KREgP yViEWKyKB2TSeLdLAuQQQgv EvU5JuA1EIr7HJGRPiPzQiT bThgrNUz8LGknMGx9PWk5MA pAGwK7AOo3Own5NzxpPFDtU CjoZXb0TBWxEDuowAVzSXKb SAJiOYsaCCeiP45oBdAsLGO FVeQTxHYwySWfip1QZRQ7tJ guXHBhclxmczIwIEUuICBSZ FEusMOiOYUhvlUdm6YaTXmm biBsYWJlbGVkIHdpdGggcGF 1mYWzfRmxKH3gcZKfSSPyE4 Syz9czokAduI2qPRIxKD8zB JE9hMRqaTIxo9v5wGDvNPO1 aXgiIGlzIGEgaHlzdGVyZWN 5a621HENwXGBld9qrR6BjgN vke1YxQ8fcNK4waJAri2Pbv L5pYRS2OHlfTLBcGIB9CBCl O64rIWb9e3iemWhsza7uNFE gJ6gqp6VtHT8fk1mhfTWeIL NfHUOgrevoURPtjT8lrYXkZ OLhtTa6YNYomP94VhaehK7x JJydltJsEUvkQTK6xJLmvOH iADSdk0LyPDwgtZmxe1oqFF JbEDTpADA8gO4pXW5uXJB0w rDtDBO1QAEvXXrtLXrwntf8 aCBhbmQgNSBjbSBpbiBkaWF bVALacsK5zXIsBWF2sPEljJ MiQT7so9JhpOTygR4bTCLbO SBtZXNlbnRlcnkgZGlzcGxh sDFapUDrhRszjQNoj7IoaVG ynzFmGJRoub58aOy3OOPwr3 C8zPQbHlJtRWhbr8Avzf8wu WxlcyBhcmUgYWxzbyBwcmVz VV98TU9tSYYjWSNdDXSvu9Q hi8IrcXekWXVwi0YoGtEfQK wdPHUwxr0jFPTzueG9TD1dd PcfjcIohoYzzUJgJD9geB6l rwJrbJPssS3fhPupg2k3uNT xdxWbgZSqRTNwvgewd4ZcjB SpKq2yUMLqp40rNrYkIDyzM TPuy1SbxLVco4V2tJ5jML4h BWJvYYSoj8yamUWrubYlkDZ sU0mnACA6maN1wPPofN5shX AapI1rLQB6qmCdD4Czy6Yck KotHFA7AGW6faD4pUCbBSPo bWUgdmlzdWFsaXplZCBhZGh yk9irbqNkOEGMxWLvJv31PV vxqAGap3GkzrSyKPIrGTEhe 2FqKIrmOVN6hvYfmbKdI1Vt DD5jNlYeAIgvcFY7EHQrNTj jHUVji54ltjGmp8XsgKFzRe N3iFEtLtPoPXZpGQSiHPKmq ZVjs8AdQPxaxFvioBJnvZOs LDKlobmgF48un83sHjCfw6k akkCwznEzk09nugGayLb3CA ptLSAzVITyZFM0eX1yUQohb GggZmxhdHRlbmluZyBpbiB0 oMIjh7zbbD0rJCGpe5mtzu3 eTS8oZZqho5tpvxIzRCWiHO ybYF53oYVrFDNyrS7ciHojW ERbuT3luSHvgLVvm7HoDpAe RHVlIHRvIHRoZSBleHRlbnN gfiSyKOJxYLGizzTkOR7pBJ JpXZU2tJLueDMseM3jfJpmV FZzQ7Q1qTA4jXGfxJNzsAGh cvOozHYvXPIiSJQ7oG8eGOc yXRCxMWJdBXW6bgZbJYEbr7 Bpa2DhIW2kfVHlOKUhvbDPc LLquMJajxGsIZ7mNJG9nmHi VSpkUqJycYArJu0MWFpyMe3 yQFRmNPqENLOuRZscGOU3Tj JzF24xMSZfVEKxERabvTrfP F9nCIN4BDUwWNKeT5Ffeks0 RH8gUGN7irehYxMlVkIxbXG uAfFoJ29hz2o8sUTrECLaR2 1rl2kdjTrjv8BwJ4OftbmqG Tamq0ZwWMIsQUKeqPRuH5rk ZCBiaWxhdGVyYWwgYWRuZXh xJvIJrVLmG48ih65teGIwKX bjLXR8mCnbCEY6IMXlIVWjd P9oaKhvHRS5SRO8oaHdltD2 zZCuoP6qrYUarW7rVUN4diA uK6FcBDDWnZKaJR43KLVqw3 IgdXRlcnVzIGhhcyBhbiBhd NXuC3mcHHYemNToITIfTLVv qka7q31zODltgKnkf1AeRRP hGRZcxUPcdNHbIZTgl4orEI Exg1Hgj8Foh6j7lUVdgQv0g ZCfDNJ4ZN4zi2fpwLTnce9b fPhprk8fHENufCCjwCDusNN zksG1vGWvcyExSPJtAFL5WC HnwXV0CSRdjfL7wyWbqLBgj SZ9CBHggBWnKUUocbeho7Wl y8PpCJ2yUZCjNNEbmfYdbvi kpuG3zKBwzEQsFGFUpYSyoI RlcnVzIGlzIGJpdmFsdmVkI JdnmF8tXP62RRYox2BmTD8g HQHdz9PcyhccgpYbDLr1VYN lsR0mFQagpFhgrQNaLDGkZT Z9BLIdLwSkyKGjiSHaDGJfu fokh5UccCIorVJ3n5F3JZVs dXRlcmluZSBjYXZpdHkuIEE epZVhR4DkdNVfFRpqz1NnQI JgzN61qpBecSUveIRgRLQtR DMgeCAyLjUgeCAyIGNtIGlz IYslXR24aLZqHJWliC4kvIa jYCDdM8u0SUR9QLF6jrFszB X9d2R0lI3xHEYsYJEyv3M0E UZbo4ZbqZPhgqQiBgYKfNQq dXRlcmluZSBjYXZpdHkgaXM gdGFuLXdoaXRlIHdpdGggbX LnlGcdjOTzxKIeSO6vPSZzX XNjnRgzc4EgmO84hXA9pPBk Z5W2zVI1MdAJcONzANBaieW nDGCgZxZ6WGNiA37sVIGllw G2wVz7RKUanOHbm4BzRATmt 9ZtKlynMQXbXOOeF5XmBLTl UUFbt2m6iYAkhLEpI5deUXF 7doR4fCMiw5DbSRKiu0TajY 5yfNnftzBpKmG0aNNoBY8oo 31iwZBdtJ5wFLRaPQOareTc oMR5yuu0dPCzwdFkFNLzjJp wpdbfsNUdkAfmOD3xTPlwCE RuwNCnhO0bCCU7DLE1hcLec jKhFOM8mH8eXKWgvP1dHQmg cGxheSBhIDEuOCBjbSBteW9 tZXRyaXVtLlxwYXJccGFyIF OrMFSxBCM1POU2yAZopSTtQ PIopeR3BANui82nzHN5jjPi YsTgROOfpYNwBsJqM36tXfg zDsDjFZGiYVFcKAyxt0JpIU 4gdHViZSBhbmQgYSAzLjgge DWoTbVioEEiLJLlTE22IDY5 LiAgVGhlIGZhbGxvcGlhbiB 6tVKxYXNfrt4jTYEkanQ2RZ 2eoZkaoqC2tIIdHK13xICqh IduXWYxzk46iYh0BUBdi7K6 bGVzLiBJdCBpcyBzZXJpYWx kvRDlKCC4oV5vZGOoxK2xLC mntImixHNhWLSarpTfnH43I Dg6oUCtLuSyYWmlKIfdNoWp m6IwtlccsGKuj1YezNBeg8g nfQSjCIBvKOX1vPSmUWFndJ FuIHdoaXRlIGFwcGVhcmFuY 2RfIXs7PFgdTIQch3MdzMQq TYBlZZMfe4DxSYnoAEZ5KF8 kjQ2uhBCfxQ69PAV5kZSpmY JmYWNlIHdpdGggbXVsdGlwb VJydGAnOZi8wQClgLygf3zi zMVuGVigrVOyNTngu4ekibL bZDXAjkGmCPMusoj5sYMjMG BtmaZ6tsAbdYEugV8reHEdp RWgfkHePzipIT3nrRDuQMsb cdUeLSmuKDUmY2s5PVKprbJ 1JLGchmYkf0Tpx7WnqQ9vMM CtcePjLyWHoZCwnpIgo9KgE CBlbWJlZGRlZCBpbiBhZGhl p6kgdpNnAS1fHWKyyut1g44 ihQ1nIF5cSKYbxpPna3McDP 9rZXNgONA1yGRdfIAaEKZtL YT6WULjIXLiMACsgOmbkHab arV2nNHvNSEeURZkzmErzpQ bbXFfNBDplJPmiblzFP04FA diKZFpiTFhQV8jTSAwFREyZ SImYYDaiA6qXXFyOYbiH5Wa UD63yf5tHRIbemochHJtTIQ 0nL8zprZnfqTzuZAoUi2cpS NsKAKtYIMfk8yqeFbmDW84D CAoFX9znTHoWS7vuXvmRPEb csYmrTXiJGGesFY3zN9lEKZ tDYJnIFOoSSgoa9ucrlKgVV WpjOdaiZomvaG3cUGqJNg7q LZsDUIcQKLsz5utrK8yUVEw OYAvkRPps5HiMcHlBXVlDiA 2cJLkx2MsmplyzIIrnHRzBX Gbxyuyy2s5rVFyITztgIA2R U1aportN2B6TZA4vnKdK7Mm ST6fJZ2wTSnyQG06rBXzWGC aYWCzn1WghKXxgVZ6BYIeJr CaYKiqGAAmpRncoWpkpkY1k HZrKPHdhBMvzkWpT14kga8x oCJfDXUdhoW8fCRfYXTlPSP zi28ySCEpXUU8zABbCjkqRb MqKPCtzmKwi3DaM0Qfr8Tpf SBpZGVudGlmaWFibGUuICBU mCDwf6Ivh8SyECjyLEVuxh1 uoL3eDAjsjGvkmWOuWRhjnY CnXA2nSVJlSUOsLT3fKVWrS QJlbZ2rtyTzjnWfnY7fk3rb tE9wUYRxisDLNYQaOCRhkmY nqOy8ACAeITK2iG8hhsVdaq Ksb3AbnQo2wEKhErGOvH39f 8ivTENotmGjsxEjeAEyNM4c l8ElsJzjSKExVBFktKZkYwY saKQoIJBrszJKlwxqX39kNU ycDUitYWWmI9LdqsfuIKFwl 2NotQFkq5xrtgllNK3utrrf fgvtmH2zTXFuePZqsWIsoEq yFFdqB19il37mHhFoYQDdzH 5ccGFyIEdyZWVuLWFudGVya U8nUKD0FSB9d7igaW7vPVEj UTRmAAGap4TmspjgzaZgWYJ 7tIynmHAaFRKcgmTMWCP5nA 9aNFOoHYH1DUvxomSdHDJtn BMpuAzbJMokD96wf70oHtSe GGAebX3knZtvRVWCEk1ojDE 5KYsuC82xt22sFvJyQGSzgL 0izYEoYRXwNMWwfVNtd7Dot VQ9oODnRTLjF7Cxh18we4Cr a4czoI3tQLIlj7vnzszhkH2 jPIJ7BJS8JLX5tPceyJmgE8 mpYQSdLAZdJ9Rcd21ht2AmC O00SPVok5EfmCZiyhUfCPCx zrZMZFGtADEzZIA4hSopuDv eN3tlBRVySXUbA0Tuy92ep8 FlsX3wwFSidC4cEIE2QJH5y xX4yMOfMRHppHLwRD42IWVc t9VqPBMhgaRJMMOvZRI2FGR bITw6wD9uOPhsQkAfpF54jJ znl89su8Uul1XdqJmwtrWqT xIrv6F5ONYwm5WwlCGnftLh IHdpdGggYWRoZXJlbnQgYm9 9SPlviIGeBUEqZj3yGOH6ae G0vIP3DZOwaE8erHWthG9of L4ueDRrqY0zCFG4CGT4u2ib UMMdNHV0AYGjtCGnw5CcvHE 1xHEiHDWsT2Kir09gv3EiFC 20DHRse4MtR3Rinwk8UAfkv dTsFCV5BLOopNDsh1CayTN0 fMCfAABnB7Srj76jo9FmkK1 scEXjgH4rJDEsauJmqHogQI FlXSAuSEOnsOHkl8TziCQ9y APcZYQmN5Hmx77eKO9qXUmp ItWpDyViuC4dhKIjYID8WfC qYR9lYRLjgRTroGZoAmbyRJ T3XFHarJgrNBOZPbSlTTRmZ SuyZgNbf0KvrjmoAprqPBE3 HFOleJQvHJBpHx8kCP3uIRC kZAK8TW3sw2fstoahMBBhLH SxTMlryxMvPTM9BTEqS9l8J OWrcYzkuBwhdtE4jLRyUIYz JOVhi5JxzLZyLZCgiX6sfaa mCLvzlmJaPWR4WAPkMfZelK dodCBvdmFyeSBzZXJpYWxse GDoATW7vA5pOPXqRSFpYR2E QwUhDQ6aQTRJEsClIaHrHNL uWURskkMcU0XyeVYyt2WonG qvpsZgSGDjnvJBOfPhUMZ2M ULbi5JhEkifWPPesVAmzK9r hbSkQRAcCALaJ3c8XR77XCY 2RMIpwsGUMbQtIRW1EQEugb 78pCn5KYYei4Y2kTFlTD3dB GBfshc1u65wzR9ldZQqPRRu JB6zk3W7cXWwfW4xjTWivHG rblL8aRRjkFObIPW2YM4VKY EtIyapGSKywcXrAIGlZVY7j F2iGBjvyIhweMJvJCpuaPHj DW8fTNVwVJOmdCFvMMHgubK GMCwgVZWeO6IgL6WkeeUdrN MvMDFaolXya5puFOB6WDWkl QNjtGUkAlCzSpgaVPI6b9fx BJCirQTdRLF8AYkuaKBkACL wMDIgXFxkYiBPVlIgIiBaUj F7ISkuRZApUPq3ELhgT1HKY JZdNUH6UAF8XPXxIxM0RLm3 WNJHWm2vGAL0KLE8Ros3DIC 0QhE3IArywPQaEJllTyqpGE cjXJRogTRvWKatwiP0ASVnF rBhHk0pVYDnhlPdBOrcW1Si jcc3BuhsHAPcGjEbSHsiFrV vBn1wAyDiBTv3IGQyuE2qXs 3bvUOffB6arWGmUWadLSE8e TFpJAZliKrpenGiesOqJI4z NBHfA6Rah7Cgx63bnbSaAwC oXNIjOFAoXvJiK1xsr3CvGF viH4MzTQ60CbJfydKmBDkhw UX4FCkvUN88KTPeTWTikz3u cU8rEEStoAM0oSHiVSImiHu uG3Uuz8Afv63ikXO6iRSjrX Utd1t3lTPjfsHkoWKtM5moG YXuvTQlwKWjYqnyjj02kzLm zBTaJBWlYtU5vKAppNOodIR gc8KgjS4cRPDwPaH8NPNsNx 7aPSKsQAFtmLTeyt0ltMTqe PRlNJZxRZgkZGNwt119tWW0 rGWzWC8eCCpma4NdnVhaxZR munWnXznsZdfgPX1kUVDjFG KhRZAQuUPtIMk0RQWbPXapi 3VyZmFjZSBpcyBpbmtlZCBh tlIhy8PyT6uiWY8xdPEvf7J vxJEwbKbch2GmaPvwluNaEG XbOJEtm6GzGTliDTG1NGhac 1cfBpB7eKrnP8B1AMF1jsPc V9LvNZ8aKWYoqICvKIfcnKK bRZJfQuFyoXPmyp9nbAslRV 4aYSL7esnbAeQ4KrAryJMiN fIvlSLbZnHcW07qBKCHVXQq PGUgmdIbfJa1JMWwTMV5bR3 odpHvkaEym1ZrgUv8wMReXi YyqBOfRIAmvlXXhwcdY51mS HfaaAyqVXYMbCZmSRT8iZKb yeSsJEP7yeGtZ2SntRHhQFQ apgCTFNT8bW9dHHUbNCE0CT PujyUABT4HZSkwmzLvdtAzP X19LUBpwsJid0LmlBfmjyAt q3MdoIuna5SdEHOsDOoxB3m 5OPVftTzbGFUrgw75qEp8DW Twn3M6tXFkqXLgKQU3OvMJW CByzTgczuKtCPJdkPFbh0Ki sMP7bNMiMCLoD6Ecd00uMN9 aPR9zZLZ0RHCkrJFns7GjKF Guw2S2MGijQARxR7FxT3Nxh wLncLVbQTHoypRhl7joJYS9 XHNsbXVsdDBcZnMxNlxwYXJ 6w2zaFAQmuPOlHLO6IXnbsR QgNTEwMDIgXFxkYiBPVlIgI sYzXeC9ZUdlBDMbWZi2LZaz F3BFTGKpLRQ8PCChVOv5CaQ 2OJi4KQCRXa1iIMX9ZoY6YG yuYIP1LpZ2GIylbPCdLFlhQ mwgXFxmIEFyaWFsIFxcbmN9 CZQfLcCrQ8JcOOlaGPJxJgQ iSOrbk7TzTLYKhXzmpz5byN LmRMVdSqFoGt6nKPExS3Nkn fBiUBqdFPZnks1mmEmiXEgc WeKqHWFlm5h3uHSjPZZrWM4 5P9SzzlWjRMlyVPUuJOWoeN 0pFH24mJLaldOofjVhGnGcO zVcyRwhm9HoYINvvWyotgQb YXJlIDIgdGFuLXBpbmsgdW5 xfwhhipUsXXHdiH4qnAJgAB dlOA43tqCdSnLhs0maaxgmF RWhc6T4WBQeVMTbdJOzwsvl Ca83OGtaXP65AEmzXKYffpB zTN43EMnpQQ75NJkzSKFiyN 5kZDFyBSSzxZUvf3PmoRGmb VXnRKLfinpxf6l1fWOamvXj JSItp00tMoAjQe1ydKNqj4S zIGFyZSBpZGVudGlmaWVkLi UcX0NlQ5xcVA1mdHQac2Wri Ef2mFAjNLxeLMCcyO2jtA0h U3Lab5Y0uERrAwOxTbBuCDK kceofPPBeGxM8LJNrgDJoWE V2KN1xtYneIQKzH0GhH2Tjz uS7ACLjmv5= INTRAOPERATIVE n4vxoLFcLSYxwPZZUMXcOuk CONSULTATION (test xoaBvYPWvcEHrX2XghfahAZ code = 6422160092) kjIL4wOK7ghSlhpEMaqOFzD O5FWKNrPaUrHJZflISfdeAe PvQaJSIzjVTkjDH6BJWzOG1 fbmtdSQucDFquNMYzucK1YD FlaMIjB0YtSOXrYS4gnbvhE LE1SQsrjH3nxgVFUnjuDg0e dHRibHtcZjFcZmNoYXJzZXQ mGTGfkBogXSYjBNg0tP6MXr lsULY9AYARLakrUEUsCZ6Sa 8jpVPBvkGYgJLN1LVyxePWn USRwCSBvJBo7GQZqRExxhZZ yOM8pkFfnZijhuFuzy0HctI BcXGlkIDUxMDAyIFxcZGIgI K5RSgPmIBkYCRxaRtO7IzB9 SYr2PFLJXiQtHiOgKmjlAEZ 4IvazROn5XZr3JWjRKeQ7YA vkAsEbEtRmKJHqOKxbIHb7W DIgXFxmIEFyaWFsIFxcZmwg QItuU17bcXyvjA6kRS2yS13 qoGTJqKSxnXAkJV37pXVoIe vwONOlXWtmPLZhD83ux1OAm 1BnKL6HFWk8xoBooxhasQ2l NJDrvxQyXGhbvQVqD7reDwO oORJDG0HdRlXdBHyDXShMVK dNLCBSSUdIVCwgUEVSSVRPT oJQFDOWC1SWVOSkPPXVT3iC RQ2EZdlfpI9qOWYcJARlFMP qVUTeW9VHVTbNVG6OJgCTHE HpCf7JHAFKHEsTX0IULTSeM 1DtZ7WGH9wVD08JHnQtGW2R RSBUSVNTVUUgUkVRVUVTVEV EXHBhciANClxwYXIgDQpSZX C6jXPjVMGgdO6dxTTfEODtE JZfAmITf4R3QSrhmaAdrVH4 TzFuQGSDRHfewWyarS5uBIB gL19bs0XFm9HzOIPvIWzwy4 vsdAlae5BxsSIiAPtePAIfj AJlRNfhbA5zZtHry7emvFx9 BZetbuD7XHIuib4GBkqeaH4 wYsSmq7rvqKs5FCCUAkjbdx F0s6ahfMkou1RbaJByCT1IW n0= MICROSCOPIC x1sulIBgHYWrbGU7VlBkRPH DESCRIPTION (test code tc6nxd5NtaEZspYZzWMlrpO = 3371) GbgrVcre29uNO8yG19JH5mM SJcCxY1OOZymeI0Xlp0TKLk GQKulRLvX251e2cho2usltC eyTZ0zZlgWTQitvmtRfM1PL bhNYVbejeoENw7MFrlYTGtv HD3LGCxzNPjF8DiZCEwPY2j quo8POS1JCdwDHCaTjO5MLX wpATkQVCpdYjzRHubk396KX X4VjGoEYRvauJtiIjurG9aF tVrBDZXYVCmr5RmKXPwIAEr clxwYXJkXHBhcn0= SPECIAL STUDIES (test j8avdGBtGKOhhEV5QaDeLET code = 3376) bt4drv0WzeBCreICwYPxtiT CkcgNagh07fLU8uI44SD3tY KDdCwP5ODMlufD8Qbn8TWWf WJTbeRCfD541HCTsWVNjeMl dgym5jG49KJQiuU1xhMNsBJ sqrcXaRWvdpoXhdwDcBxk2H YZ7mXtpDWLebhmkAhM6SPft CKZqwytcALm8YQsiVBOjyRA 0PGBocSTyT2MhBVUuGI3nsb z2EYH2FKopXQWaTkT7MEDhy IUlBOYmqGbuXCtzt318QXI5 TzYcCNVhsuDsdGhitD3zGtX nPQarSbLtQK0vB2XmGBUmka AzdOAqKYwfjRPec7Z4ZXoth hOkrMzfsWximXDgFk6tjRWp y9ViiPK6RSH5NMZiYjRwHOM gnR3yzYZuTFzkKDFxMU1nCG loBLO4iR9fQZKfiObsJOElC PXsd5WchJs1ESPzAeURBNqd WVBgwjHrB2LmMKvyLQ7iRTI ny2tcSEXawtTnqcMysVSwWA 12EBXmeNHuVPCxcA3rHpEfj GFyXGZzMThccGFyXGZzMjBc C0TaXTDrr9CyVNH0GMOvOIS mHTX0EREsKIW1yO2zBYIzbM j0oHCthDD8YSCaayNkeuWor Rcytefcx1H5KVgacf1zhWUf XHBhcmRcZjFcZnMxOFxjZjF ccGFyIFRoZSBpbnRlcnByZX HnrZkparEzBdB3uYxvCIBmw 7ReaR2rgXSvYGExuQosOGQv XCIiUjMouA97vk3weOR7w3G cYQ1er6WriOTsjdBhyPEfqB TqBXR1MWoire4obRKnBIAqr wTNh473oh6rWZRyyTQhmgKA oOHcwF1mPNklYHeoBMqfyEH fSVezj3vdOQJao1m8aJCpFN JaxyWkj8rbPJjztoZgTJCzv FIlbIMyKNXqx99qIFeaoWtb pPpbIXPjd4MwbQira2NgYzY oRSzys9SwV10wcFSeqMZjcC puJULdonKzCUZxw16cl7uhA NGnGuE0rMNmuOU7sSDzfARu e7XzrEowTSIss6uuRIMttw5 dfnwmpFVqb4UviY1gjrhbBJ fkbFPsxhIlLSKdd6g7cTEbC GAzFJNeRIlqjTa4YYRpd119 sm2pbmG2vOLfQYY5VEicOFJ sZSBhcmUgZXZhbHVhdGVkXH RmoqTsYNPxfoWEwH05dh2vn OP7a3McVX7ty7EjtUG1IBKb iyovWUuptWBobFgtDhS7LIP mySVdBr8ckQAkBLO1WXVkwI txnaXLjF5jUYIrBIl2IWQuC eJrOlqglvBVWZPqE6EnZNKk fpTmwmvwJWS4zK3vr9p4UJe yCq9sXIRqniszo2rebrTuiG Kfx7NkHRZgjeWmn8ApFYIxh wQrvLLoPYTptbVffp9qouKk AGHiRSOlK3MhnypsiVjknmB 3ZXJlIGRldGVybWluZWQuIE k6LRbwueQwl1LgCeZbbfLmt ZUxptLzXN9pMLXfiVQbmvEn UAL6LRRnEVDZQsCdKLJiu7D mMO5fSQMuwYemGILnoX7kx5 ErWVSvp04bJNNdMELVESQrv GFzIGRldGVybWluZWQgdGhh zATvvLWpNPHfCPKaBP1aQBF cuwEpgASga7ZgjJTyldYbq1 JamhKrWLQfMYP9DvXRiHCpt LHtfSGnivE3y7AuAWQasuFr vHkzrNMrnPHbpOGjs3Ckqj3 kXERqf1lkdQnvLH2soSRhSO ByZWdhcmRlZCBhcyBpbnZlc 2FtF9P8zU5zCWuuo7BiTc4k DWUcj2LlrnZeSgSGdZfkOHp mRa6eFIItjzzhlOPxV5CooQ lmaWVkIHVuZGVyIHRoZSBDb XqcnCWswKVUANIucvM6r6D8 VWooeKBabsRzMF52VQUvYL3 heTFgcJAov9IpJEz0TAIwP3 iJIQ22KLqfTHVuvZXcxJufo GRdYIDvJFDaquPnuk2znIez wGNub13dpOQ1kFY5AYCnwS1 cL9NcIEhkGz4eKMWwvjhxiU OxwEgxIi0jqJAwaQ== [id number] 12:53:55 Test Item Value Reference Range Interpretation Comments Case Report (test code Surgical Pathology = 104) Report Case: [id number] Authorizing Provider: Ronaldo Owens, Collected: 03/07/2022 09:04 AM Ordering Location: [facility] Received: 03/07/2022 09:10 AM SERVICES Pathologist: Kelly Adams MD Specimens: A) - Soft Tissue, Other, right diaphragm peritoneal nodule B) - Soft Tissue, Other, omentum C) - Soft Tissue, Other, appendix D) - Soft Tissue, Other, transverse colon mesenteric nodule E) - Uterus w/Cervix, uterus,cervix,rectosigm oid ,bilateral tubes and ovaries,bladder peritoneum and pelvic peritoneum F) - Uterus w/Cervix, falciform ligament G) - Soft Tissue, Other, procto donut rings x2 DIAGNOSIS (test code = [id number] 3220) uZzEwMzNcZnRuYmpcdWMxIH tccnRmMVxlcGljOTYwMVxhb mDoSCFylBMlK7PguofbTDxg FC6tRS3psGtktIQxhTTwVJQ oXfTxt7pal647hBBzf5mmMS XRikgpcMq7pEroC19rj9V0M jezX13roDDnQDS8ZRVaNJFy gMBpUAYgNWG3QRMuaLGzZ2i tSIHuBP8dgwreAJbzPVywWT YjjFR0JSWhkOSmP2CxISCyN GyxIXNeyws0ZuAtUs4aqVBf eTcyMFxwYXJkXHBsYWluXGZ hPiVpYB2dRBSUDURDAdNSGG wgUklHSFQgRElBUEhSQUdNI I0BKRZBIJbmWQxZGFGJP077 RZGjpxe9LKWnRHZAOLrXQLh RZFYLPNSGKt1EIaDUJUYYGT 1QRESeS1sPJBUFX9ZNDQ2MO FKTQZIcZ9SFV6lAJWREHNzG TlNccGFyXHBhciBCLiBPTUV LHDSMPPEVGBACPKKNUE9CAA rkmEDzETQiBkEpXQkSB2duD 0FHRAUhV6LEA4SPCVGDLuNV Tq4GIYAVPNRBLYCFGF6RD35 CFE5PWzGVSYoTFQUOD8ZVUN 2LS8euHKJztIAxOWEwGRDHW DIGBDmHXZCQMZMEOxXUC0MJ PYk6ZSYowta2OUMjSKVEOTu IDVsGRJHNVFWMUw6VLaMDEO XSCK7AZZWnPX1RE8gJDX9VJ KMQVGETEWsGYEBMHJTCCw6H EHdwYJMxAdv4FfSfAEXVThH aBTOBM3VLSNMTXWyXBPSgnk ddgMWfhIJlKR0pSWXYBN1OK DLFHJkpHBHLY9aVCVGLSHnR HSlMYWWGV9NcK0XCV0rIA55 BIFxwYXJccGFyIEQuIFRSQU 2QJgAQO5NcB80NF93qUW8HI 9UYMEEYSYLoQf3MOJzTUMXK HZCRY6jRJiwwcGWvYDIaHuV tIENBVVRFUklaRUQgVElTU1 OFZUvIVs4YOkDZQXCLNFeWC 1feR1GFNCHoJ2WCP3XNQIJD RcKNWk4TFLngLRZiLzt4UvQ nMYDIRVRKJIGOSV6VO79OXN 9FXvRYRVfZMBGZD3HITN1CZ oTpzCSmEQQlFGtwEUIqAO9i VVRFUlVTLCBDRVJWSVgsIEJ HZGDSAPNSHPLUCEnFT0SVNP 5oCEUKPBEoNB3LVQ0CKBQAH MAqDXUMU1UOH9uGNG1SIXKP W2mHHepxSGOsqiWMUGNAHTL WYOVUCcuBT66TDN1sJQUDGD FJOeOWGNLJUE3KDUAFALHEJ aXSHX5MKRBHXAwIDWukQPaG SULWAHMDV12XZCBIZOmBFZL YPPndT0EJZQcID51qX47BNH 4INOYLZ35NPXSFOOGZW8FAL 19DKTSoPsSJPHIOJM7EErdj YXIgICAgICAgIEJJTEFURVJ BTCBPVkFSSUVTIEFORCBGQU jQU9OSMQ1aRYRMQCEpmZHwE RVeQvZtHHwHU6wvM4JCYPTj X5JMY0IKIKAWZoEMQz2MBMJ ZESIHPDXBTX6PT64KVR1EUe RXLUzGGPRBR2TREF2PRyOop SZdIKFqEvFhSMTqZP2SO9qI QW9UJAMEJu3AALdrU5XUOrD XVGFkE3AiNrmIRSMBRbRISK 9WQVJJRVMsIEZBTExPUElBT iBUVUJFUywgXHBhclxsaTcy MFxmaTBcbGluNzIwICAgUEV HYYLIJoSXOBgwQ51EREYWBE ZNTATsQGZWHYZADCCVP8IOV NDIRUAOHB0CW5wfNWHcjHjq XGxpbjAgICAgICAgIFVURVJ KAsOHZbFsX9ZYHbqJGURmkr g3CPJwMGANFWyEGNwIAMAXK IDHFj6LOzDAVOPDUH9ZZTYx FO0LU4aFJG3UJEOBURXREbY bV1LIH8HZILLJNPiyUUEtXb n6QpWdGUNHVQPZI9TRNUYXV SYRDR4XA1mkZUWlDtibWSYx PwJxVZXOZX7HQKZDSSDFMJD NEAbYFYxRPUThPiDNB4cLG5 VORCBPRiBBVFJPUEhJQyBFT kRPTUVUUklVTSBccGFyXHRh KxNrLE3DW43WNOTTNH9cK1d USCBMRUlPTVlPTUEgXHBhcl v8AOYrKWXLSfHMGMAOM7AGM EUgVVRFUklORSBDRVJWSVhc cGFyXHBhcmQgICAgICAgIFJ OB5WVP4iAJR9SBRUYV6lKOb opCZKkqDWcPQ8kXLmUBV0ZX eCRABSQUBQBXKBqQ4XTR8cP K91ZXNuDVTtqBKWJLJ0RVQZ FM3JUABDRAGWRTjwNIQKWT4 5TXHBhclxmaTcyMCAgIElOV j0HMklHHvJGINFQV02QV83H AgVNFBGNFUWgAO0VINAYHs2 TIXvvKCNHATPHU99XPKBenu AtIFVOUkVNQVJLQUJMRSBDT 6vNNyeXVY8TH45TRRrgRWHa LXJBPHZXR0TQZIzFETLLMlO BZv9VKADJEyADEcPsD0EmFA zVSSZaQOvQIFmpGn2ZATEsN JAtGbdveOYrPQOfAGh4KXSh XBETHy6WFW4GYSAEA3nYGxd SGN7NFrfYVzysXV1UP7dPSK KtOfvfIJJTL8UffRNiXKNtG pBvKLFOQ3UJQAJZN9vMRmcD KS4BHlbGXwptAsDJXPTTOyB hEc6QLNUCKI1AMZKjgiOkQG AgICAgQkxBRERFUiBBTkQgU JALFcaMHFHBGeiIT19EXZ2x bGLsINYhZtYbDKeKZ4igT3F AYNReS0MUB6KMHAOTNnJFCg 4ONGFHTYZEJMPPFF0YH83WW T0SDdQIEUyPCKKZX0EWTT0T H5ywSXPztGVxLAFwSXHBBZM SEb0EQCWAIMrLMQBSWPulLW mLVXFPU684MEPlrjh9RVMsP MHJHIhLAVxMBJMWQLPVZr7I UnJJRXVJVE4KFUGsXQCrgkc sIZRmZh7fX06BZ38qDABYSs VUIFJJTkdTIFgyLCBFWENJU 0lPTjpccGFyXHRhYiAtIFVO WiFECIWUOANOPVLDD4tZHjl ONE3ZP33OTVsjNJDyvXPiLH 2kP9JFQ8LOLEtAKCdhXTPRG VVAR81SAOAOGBSTADCMIZMN QQ2YO72XYP3YJaMKHKwZMLW QP4ZFXZ5MR6wfVGNvpYJtOV VsG6uFDD8ZVAKSY1FRB1mHI GPPWQWBBJAMCYsJSY1jaWCj QBYksz42GZN1KmWpf5R9RQC 5HYVbNQKhc6zlBRWkuYEsTa EwMzNcZnRuYmpcdWMxXGRlZ iCyl3uby829qYUna2eeYUMo HoA3tFHuUEPegCRhG532LYY lIFacv1ysa3MtUHBrsJEbu3 M5WQNJlmuedDa3qDomG04pa 4G3MorsQ2lbUKQwWYEfM8Ny FC5eGCTdVyb1IJX7XCB7ORE bLZVxU8EcIF5dRKLstMTpKC y3s8dllJzgRQBaCRD2l1zoD YjlumFxKH3hbd8ccGg8s8jo rlKwSRAiNOPkjSEPJPXsL7I fzDufJd0dnXi0pWeiCpfhLV R5Urm6WS0knu26rdj1fYyqP CJxfhnxOmN0SPpcJKAxjvzo IVb7CWvqPTRwvOO2YRAukUB yG0XoOMUnHJ1zwoi4UYK3YF pcNKGvIiK8XKUznQFqFARsz UopSZrbz558JKH3PaJxKF0i Z3Uww9Z1zP4njQJhGHWmcDY mOzNePDGyaw8pzHBwKSojc3 MdGNG7jxX6fMYcsXEyTZGgQ oC6PTlrXZ6xri13KKJrFHN8 xp9teOCuhWyxqoDjuGZcJLv tQ7TfCEAhg599PSNgZ7CuHL Ypu1A7ehEtLhEuFZVprHQ0c tA9SJRaXC6gazdad6ihKApi JSjtRWBztfY5gaB6RRQxgCA zZ4WixG0lROXjPX8tzpnmk8 sbJLD8PQwpNUDuMOL6SeJkF PGxf8Eaaue1EyGib2YeoQIl PGtgF20gx819MYRznvAgU2r wbGFpblxwbGFpblxmMFxmcz O4FIRbJDjpnmczJFHmRNogT 2ucBjStSDHbmAauIDtpe9Pe XGYxXGZzMjJcdGFiXHRhYlx 9QUNxdQRbQNBfQrUtX5lkur gvTuIRNXNlv5iuC1ocqVFMd BDpZ9EuMNwrgxLrCKtaBKat YnYpRLd2UR99ZoRoAHKups7 9 SYNOPTIC REPORT (test OVARY or FALLOPIAN TUBE code = 5765) or PRIMARY PERITONEUMOVARY OR FALLOPIAN TUBE OR PRIMARY PERITONEUM - All [id number] Edition - Protocol posted: 07/05/2021 SPECIMEN Procedure: Total hysterectomy and bilateral salpingo-oophorectomy Procedure: Omentectomy Procedure: Peritoneal tumor debulking Hysterectomy Type: Abdominal Specimen Integrity: Not applicable Uterus Integrity: Intact TUMOR Tumor Site: Primary peritoneum Tumor Size: Cannot be determined: Largest nodular area in the omentum measured ~ 5 cm Histologic Type: High grade serous carcinoma Ovarian Surface Involvement: Present, right and left Fallopian Tube Surface Involvement: Present, right and left Other Tissue / Organ Involvement: Right ovary Other Tissue / Organ Involvement: Left ovary Other Tissue / Organ Involvement: Right fallopian tube Other Tissue / Organ Involvement: Left fallopian tube Other Tissue / Organ Involvement: Pelvic peritoneum Other Tissue / Organ Involvement: Omentum Other Tissue / Organ Involvement: Uterine serosa, pericolonic tissue, appendiceal serosa and mesoappendix Largest Extrapelvic Peritoneal Focus: Macroscopic (greater than 2 cm): Omentum Peritoneal / Ascitic Fluid Involvement: Not submitted / unknown Chemotherapy Response Score (CRS): CRS1 (no definite or minimal response) REGIONAL LYMPH NODES Regional Lymph Node Status: : Tumor present in regional lymph node(s) Number of Nodes with Metastasis Greater than 10 mm: 0 Number of Nodes with Metastasis 10 mm or Less (excluding isolated tumor cells): 1 Emery Site(s) with Tumor: Pericolonic Size of Largest Emery Metastatic Deposit: Less than: 5 mm Number of Lymph Nodes Examined: 3 Emery Site(s) Examined: Pelvic, NOS Emery Site(s) Examined: Pericolonic DISTANT METASTASIS PATHOLOGIC STAGE CLASSIFICATION (pTNM, AJCC 8th Edition) Reporting of pT, pN, and (when applicable) pM categories is based on information available to the pathologist at the time the report is issued. As per the AJCC (Chapter 1, 8th Ed.) it is the managing physician s responsibility to establish the final pathologic stage based upon all pertinent information, including but potentially not limited to this pathology report. TNM Descriptors: y (post-treatment) pT Category: pT3c pN Category: pN1a pM Category: pM1a CPT Code(s) (test code [id number] = 3357) ca8hrz4BiwXWpjXNyCUhtsM RpyhNlvd85wTF5cF06ET5oD YAvYtU1SVEgfsS7Gja8CUTf MEQtgCLcE500h6hrx2zqovP slLE7nBdkTZExmoqaZaR0VU bqOMRacnppITk3GTdsNUMnl SE3SKBkqTFoX6GtBEUgZB3p dtz5TVH8RVuqPVLoPsT4SIL tiLChAMBdrQnyXZipw672US E2OfHcOZWldfQwmFumfK1gV wXrRDKFWzM6EHOlELbyNBeb WyM7IHa4QoRhJbD3WFW6AMk hFRHcHt3hQPvtWHnamWNsKF GvTEx5GqQ7NZVbjmHCSdO7A HNkITydIPLuJN6rWIvwIUs5 QKl3AzDnFkB3PIM5NIT2Lng rAKWwCt4vMMatYGMleAPjGK elHNc3GpB0WGUuet8= GROSS DESCRIPTION p9uhcAAnRIRwbDK7KnNpTUE (test code = [id number] [id number]) GciwOowx69sHM0fW16BX6hJ UZqFgG7PCEczkV2Vlq1NZZk GJThbTNyU308y3ydt5lxwaQ ibGJ4MFGrOCRzQ1JdNA1qQR DgxLNuQ25opXQbWPL9GLMaT NImyIKrDLWlKHQ8FSVtgMRv R6hlBRQjNU6hgyjxFXcpIKg qXGBooUK8WZJhkRMvC9RfNU AsZVddWGMecfl1ZxSpFv7wg MLspBslNKxcRCFwo9lfWQFe yKGwREZ3MLipmNJiYBJfJFV rXMf8GVUeWBmagDLoHL6koC dwLtfozIadv9JeuITxWOkqZ ERkFHJwUVotKJIaE3QTNOJy UsQ8KwD9LGWnMUo7XDt1HY5 WWiIjJOTlQCZ8BsKqUHQbSK v2JBllUS4UNMI4PrS0NIj4C zO4AIJyTGWwIAIfXgCtLJGt WJojLmEQiatjdJSaJR8vnEc wbGFpblxmczIwIEEuIFNvZn GcIZtrk6YrXEMTdIuzoz0hi FKeNVJgThZuIK7xEFViC3Ip dmVkIGZyZXNoIGZvciBpbnR sER3wRTZliDa1KVRid73kuB e5HSBtb00xwZSyWMapGGV2o RQcYPYatHjtvbGwbgBuQZ2w NKOcH9Vmc7Yxc71lyuAiFaY eFIMvWTXpa53asEH7tNHehB YoHA07xCGhLbAazhVfSLCzo q6owN7hOXKoAYU1QQ5fYUPn gACcPTBpXtH3wJIpmNWrh1f 0nFGqJOdntEQ2KO7ftigyx4 ZrPfPpJAZbxiWhxxIen9mqH B2xWQSmADJbiOFfTFruIGE0 It4jwRAiWDVkpfFucuZclEU wm0CeGoFhbdSuITApRNg4g5 imAIvnSYIfd8NvsUEsVGGYW RSyFomqWMEzaGRpCWbYn5ab eHotg1XfbYPzDSjdFCRzlVK mDArpdT0aTqItn3mouYm2GH qzhzQ3SUNrgh19TYthCNNdD 3AlL1RwDEigBGW7ZCLcUiDo UFDuMQ0KMkMvKGsBKLeuLcJ 5LkE5DXx3EMQWAqLdYyEaXy kbRDayBHRxOUw6FPl9GHoUO eX1DZy5Tcn3AEEhSYMmRBek HOp3GEEpJOyqoMQzQMBtYMT oNSgbRMdvM25yAmCmAFDZWd FTj8A6WNRkh0G5JGxmS7SmS XIuXHBhclxmczIwIEIuICBS KKRbgENpPYZpxxOmp9CdNAm pbiBsYWJlbGVkIHdpdGggcG B0xVRknStdQG3exXXlFBIqF 7Oee4wcsmTiuO4dXAAwZW4f GQIxe8L0DPKnd0A9HOiey3Y oZXIiIGFyZSAyIHllbGxvdy IbTFX5gRDlhEJsiFGbe1Hhj 00vpfX4nJYdHQQxgCEsqicu WVObtUV9OfLkpZBaRZWgHUU sIo93LXwgQMQ4NFYjU59tHW YPvFGma1JtY3miYX2ikHKdr 8WuqZFofIvpl5XluYyvhtCt FJMtJGWwx2LgSCytFBAhJOF ek6WilHVjm1TycLPgTZpxgD 85MKOhxCZau5PaONZfw41fO HGew3EclGNxII4lKJHqSNCz GWmsfOgsU8C3sBGmvY8lJSZ oZXJlIGlzIGFuIGFyZWEgd2 w0iQDqCQ0tXTJyJUGwDKGfI BNrCA6aKSSwFXIyzIWkkeju VXG5PQQsQTM9QLHdI17bRPK HxDBzP1V0PVD2rbTvR9Cky3 KyfYeiSX4bTJMhAYVgQMPvI KXsfISgmAU2miZiDJQbQyHq ZmB3rGvrDIUrXBMlMP5hVZ2 bOB2mUA65gJYiZOrgn8leov WvPTVoECipMW46sVPdDKGgO BNGSBTdCJBxmvThjBh2OXTk OJL1bO2kzoVvecMjb8VkyHd 1pPKkBOAyOGLpoQasw9RxWS VtsihxLJVpS3OzpWkusdZpc 7QcYggzFUKrHeAvEwV0IKRh pXWco5AuyVY4hZHuWGAqD3Q pj69gUH7rOZ9vWK89nA5tMZ PfpImoS6HaCILoqnJaXIKvD GZ8EDfdsHEwTSO1VDNjQDap OsKhgtYiAK05YLTnimKmh8M fsKbqggQil8Bpar8vwQpwha CfvyKmGAXyqGbpX2FxJMJld nOgLTKjINU2JKqmiGZsOMGe Sp7DYgR0KDQcZCr8bB6tNLr vhlGonyFgKL44NHIedhYbt3 AqiFjestKdm4Ezx32aioS6s EwcUYSxKTQbhrEiPUFjX2Dt o1Z8mPKtDJPosgqmGLScCiF jvLWeQORrmskoZMDtQ8TwV4 JfkhBosLSqDHDiasWkh6csE QX7IILpuHUgeVTnYiKxNojr TEY7f5ftHCFhsXSwLPB0PJm caWQgNTEwMDIgXFxkYiBPVl WkOpPxOxO9YLloFXOlVDg0L QonC5BIRQAsSXP6BDH8ZpSk BtZ0DQe5KDVQUh0hHDA8WGU 8BKJsIMO5IcR5EBlflVCyIZ xcZmwgXFxmIEFyaWFsIFxcb uC1YVHvOgMzRj0fA36ioZPO sVWjgFZwQY52mHKuYahyOAK rGqQhVDmnSgKxXq2pJbOnLQ n0YDYhhZ9tOx9ogQPzoT1aO RyjQyPmWWPkg1s5uUY1tSFs sYO3wEElkRvrNY8mcUHxEAK fE0Phs8zxypMhfM2jMUVjTB 9vJQEpe6D7JGNkh5J5JYrto 3RoZXIiIGlzIGEgdGFuLXBp qpkxlS73JPV9FTRojXIhFZe 2BQm0PxLhE46plB7fsCDvD1 NtFBWpWKYcPL3wqL9hEMJlT CBjbSBpbiBkaWFtZXRlcikg b5h1mZVhGSLgFfU3OOYsFXV 0XOFoUSJooWFcgINzA6rqYX XxJDMyLZYdCA9itXksNL6hU KbxTEYhrx1nYKUkieE9YH0f aXjoteZavqFrw06tl3QzKCi tiAznvZSrpLein9EkwZP8QE 5xr2dhgRHoby4bqQkmkcFeR Y7vdM5xCSFjm02lyIXoiiE2 sIGeZPXqDZ3sDW7aDDhpJFa qJKF7UDC8HLOdcGIvy3mdfn 4gIFRoZSBhcHBlbmRpeCBpc xZnBRCoDBlyxJKwSKL7cT5w LMCsoH7cpqJ1DKVuZVWjyS7 pLL88SANpH5BmIB8tdBZhjH EmTHS6xJKhJXtsFcQ7sXCkx Exmb3E2PQRgDOFtVL3gjXki w8SvnBmfVSWkeGUrFGp7XrW bPFqpUWx2gEHzHDyjMJQsoE Q9ENOfIZFhFN73MJNfGqQvB GckPNtwcYayeDulB4ojPMSn MPmjISEmUnLhpV7zWxWdifH sZS83HDVacaInc0UxoDxmqg HvLLQoNQF9Ml7irNObHU5vr VKhKIKyz7EdalP9PIAnFSAu y4ErWM2iQCAhGOMdgTFgyC9 uos3nmVWbNVIiwuIJuslxD4 4jQPeumVklMGAMopRgK3Nnp KClhYgkXVjdqMKlO3pqSLQw pgedIVMfH1HbxBaylmZfg5E tXliuBFAhApG0QYVpd6gqxT VsOB3vzcgntdSyqmXbUBQgY IRtEVUvuYJmO7QzBAM9wFXo ZZNeHTXcK3WtxRKmWGMmKpW LAPHlTXKagoPehDj7YIHbwc 1ggjSaRVM9sE2axhV8bnMko mNsdWRlIGFyZWFzIHdpdGgg ho9doYamh3iuLOEoiCWbYDC kCgMkJ0NmLBmAn9qcgXzmn8 VjdGVuZFxwYXJccGFyZFxzb S7jZtAxv5ctkIv1YFtyhcL6 ZKLmgu38LJeaFOHeK6TaN9J zZBncUSN0OTKrBvPhAMHbYP 5IJuTyIRqZHHvjQiS7TlY3E Rk0QENISsXaJbQsIjvuIAqh QtwcCBj9JOc9MStAGmN0OBk 4Hlp5PAxxRVNdMJorFGm4ZF IgXFxmbCBcXGYgQXJpYWwgX BgdN13rEzTzEJEKScEVk9U8 ELKul9Z8GVmgV3FeFPVwPNJ hclxmczIwIEQuICBSZWNlaX LmLCAchxIhy9ZqIOqiudRkQ DLlhUOnYWmcgWspaQD4hPTu nVtsKA7jgJCuEGMdY6Wpa9g ccrQxvY3qCBLjZT4jHUGib4 M0IXZet4P8WZnfw3FuQKQcW KThPJNmNZOqgw3fqV6nPAGt WLBuz2roNQTqd6M8GQCemwI fdOShkKQrvKRrm6ArtA3pSV DpCjZ2VEMkXlA9WKUbRtGsx qBiFV1dOHxxZU9oRAdlZO7n PXCfPlDvD3KyA1ubCQ5nlNU nc5NihGw3oIAfIPwhVFAffC 5fcX2rR3Eag7F1eTYiRFAbz 2recPqcf2UltITxFYsvDLNt qYGsQDdfhT3rKkOna7nhkQx 9DCanqzA5JWLyne26FMtaRO QmL2NmU9GsHAtuVCT3XJCdD oSwRHHnPA1QJsSbODiHJGlp WyF0YzW9IJz0FEHMVkBgSoU tLxfhGBm6ODgtBOd2UVg7MU jKLkS1BLw4Xec9HtzlQJEmC ZcuUJg1VJJsLPavsEVmYMSz WOOrWTccPYrpI05pNxVvJGE OTxASeWRsmAYybq0CCXV2sN guXHBhclxmczIwIEUuICBSZ AYquRGhHXBowyWts6VqOUms biBsYWJlbGVkIHdpdGggcGF 1zFLeqGmeDU5xbZGbCCNpF5 Swq7degoTcpY9nCJXjVL5sP NN6bSSitJTpp2s0vEWiEUD6 aXgiIGlzIGEgaHlzdGVyZWN 3v865ZYNmCQCpf8ltU0VrbK mzb5RlB6dlAR3zdBQzi2Kgj L0lLKO3XNmmPINmUQT0GHLx F25oXNs2g9fcvKqydo6iVAT bY3dbw6WqKO0pz2oqxWSoDH NqNVRvmyeqOOGpcC7usMNyQ MGluAf6OYGoeP68NnbddB5r DYqcyxMeFKeqTYC4zRYreGM vNIZxg5QiIHedzCnmn7rdEC McSTFeQOD4rX1qWE2tAAG4r cKsYKD1UMYhHNubNRcmjeh5 aCBhbmQgNSBjbSBpbiBkaWF aGUBjgoI8oEHaBIY1iVXbiS GpCK3sv8PipOCziH6xKCFvY SBtZXNlbnRlcnkgZGlzcGxh aQMxhVKmtNjlfPMzj0RbnTD aptAbSJAclv19mPa5YGMbw4 K0vIRlKbZeNXfpb3Ogtv9ih WxlcyBhcmUgYWxzbyBwcmVz ZD28ZU9iYMDoZSGwCOKvx7I hw9XzhFyyQJGll2XvAaJnZX ebETUpuw9rCHHcvuV4BX4qj UqomcRgfvNddPTiBV6bsJ1v rtVzvTGrgB7ghTnep1a8gGI escXcdYSoKQPesogyk1AvcX FsBj1aJMQwf53tYyAcPLhlT KKyh3BvaNPdx6H6kQ7tNL9f RNSvHXBky2pkaJLmjdImhKV oQ7pfDFF1heO1cUHriD8zaH TraS9qZUA0ugCeV0Syb0Vvi HntPBD6ZRH4hwZ8qVKoMTAs bWUgdmlzdWFsaXplZCBhZGh pz9xnilIzWHADtOGvKn64PM lqsWLfu4CaaoOwMUZyXNZft 8PlMTutIZC6yrVtqkGhJ9Wx BA6wAnNhYHnkeLO8HIUnJOu zPOGtn54ookLau2XikYAkNl K3hENiWqSpNTBwXVUqRTMyg EPyd7QmNXqunQlrxPPxsEKt HWSwdqkpY04hv91nKlKzj1r amkVhclJuh53hqoEtiAi2RI hhHXUeQKCpESL8xE5iDQawi GggZmxhdHRlbmluZyBpbiB0 gRZvt1bvcC1eNPBte2royo6 dVY2gWSswe1rgjzPlQIPgHX lkWN59tMBrTLTlrG2blOiqA DTjoZ9ouRIadGWrp5KcMzKc RHVlIHRvIHRoZSBleHRlbnN nqoNuWXVqEOWhzuUsCU0rKB XaDPF8tFKvnWNjrH8laCkgX XBpM1R6mWK9nHNppEZgbSHc anNoqDNvNDNuOUA9kV5eZYb gUGWjXFRzXIH4wmOjMPUrp2 Uko6ZgPT8pyDDhAKUequVIx EWvtOUeddTeDX9eUXB3kdZq QYxkUzQfbFTtHr4BNMgoMu0 cGRItYKcOEVWlNXafHTW4Ut IrJ54hZITbAGRyNPqceRmiG F4pWTZ2CJSnQIUkN4Zbeey2 OC5eTRI8swiqVhKeErEjkRB tCmQpE19pv6u1cYRiYUFhV9 2hf0opwIien0PgX6TndxdoZ Dpzw8MwXMRfMFSdaZEpF9sg ZCBiaWxhdGVyYWwgYWRuZXh uYeTHgTWlK80yr92jsBZyOV epKTJ3aSdcQRD0ICZpVXHzl P5fvGnuCTE3IPT7rhZqjrS1 zYQoqN0gdPCjsW9dSRQ7gmD wD0EyEHNOvAIjRC89GPBmp3 IgdXRlcnVzIGhhcyBhbiBhd MTsA1htZZMvfLYmYEDsCZMi bww0j79kZVsfmPyys6GfTZC lWHSqwXAwrBVqUZRmv3nwHG Umc3Uyg4Mib7m5aEGipXd1h KEnTOX3WH7rb7eaiTAgdx9o yCoske8kRDHiiINpxKNneVL mxmR9iHPzfvWyRCJqPAS9LZ WinTT7APPuqsP4ecIfkCOil JT2YPRjvRIuIMZnkumiz6Nn e8SyGF0xKZCbIQSlsoJzxep vhxA7bIDtjILcLFYUkNOlkB RlcnVzIGlzIGJpdmFsdmVkI LxgiI6pAN64UZGht7VgOW5b DRAfy1ZwrqngedBeTEh9PKH ntM4vGFpibKsmtVUtSARbHY Q9YHAbUeUmfGCfsFYlHKWck meke3RjcVKqrHG5n1J1PQZl dXRlcmluZSBjYXZpdHkuIEE vrZEdQ8EdzCGkUAvuh3IuGI KzgT34bjUwlQFaeKVzUMWyX DMgeCAyLjUgeCAyIGNtIGlz JMzwSZ72uZTwJCCsqU9scAh tPNAvV3i4XKJ8CLK8fiKsrU K9o7O9yD6mJHYdEOCew6S9H EBws9GzlJOwucNdKjUWmEHl dXRlcmluZSBjYXZpdHkgaXM gdGFuLXdoaXRlIHdpdGggbX HzqMioiEOpyCJkJQ7bNYJsU IKotQxvr9VjgL73kRF1eEGi Y4D5bFX6OyPAzNDcZGFhvuG jANXfGuA8GSPoM74oMYSazs N5eYi2MRCmcLVev2QfFADpk 4WrHizwJZVrWOHkS9XiLXRx ZGIsd9i1fAMgaTZgX7noGOA 5qxA9pKPvd3JxFOHfb9EdnX 8rfYjufqMzRyL5fYSnCJ5fy 36kjDOgzD4uABCxFXRhzyFm qQT6cyu0cRGajbVePLCvpKl uvapmgVAchBmwLL8tNLxcFN PciHPasK4vQXR4YAK4yrZoe sXlTIF0vJ3eZFVipT3pIBzj cGxheSBhIDEuOCBjbSBteW9 tZXRyaXVtLlxwYXJccGFyIF HbEOBuQKJ9XJS9gAWtfOHxG HGxnsZ9PDPuu56jlGV7daCy XcLrLOOysKGcEsNcS79nPce eEfPmUWVrYSKrTWqtw7MeJN 4gdHViZSBhbmQgYSAzLjgge GUeYcMlyAHsUATvFV97GKQ2 LiAgVGhlIGZhbGxvcGlhbiB 1jRBoWSFifz1jWCAdbxM2NY 7qaVmqzbD7xTGcQE37xSRqk RfnDFPjno79vAd3RPBph8X8 bGVzLiBJdCBpcyBzZXJpYWx ttHJkNMX1bH9gGSDsoZ7aPC ujzLfoyMFpIEEjkqTtlH96Y Xn7iHMpRaWkVKlsHKmcBeHk b2GsisxyuLOcw3RzlQFtb4s ksCQwQMTdOGD0oQNfTOTamD FuIHdoaXRlIGFwcGVhcmFuY 3WmPUh6NBvpCPErp6JnqNYi HMHxEUTsg8IlOVneABY3KI0 pbN2foDYhhU39IWU7hOBpmG JmYWNlIHdpdGggbXVsdGlwb JZcxIDhHXb9fQYtyCgth8tv pRIaCAhfnAAeGKsab4lvbrO uAQXVudTgMRThcar7xKRnXF GxtpV0nmCusCGwyT1saBQgt DJxcnHeBqiiCD5uaSBjPUgj afJcVCsgEZHqU5u1TFPeceF 3ZVDvihWzh2Okt4OliL4rQT VxlpYfBcTArDIcdaUdd2UpT CBlbWJlZGRlZCBpbiBhZGhl n4vcakQnRE8kJPMuxvn4w26 lcL7iGF9kKYHjlwSxi7TbCI 7sEQKgQHW6xNYvhVEnPINgQ HE1ZSYdNRCtIPLgjQiybXxh dnG8iFCbAOCaCRGsvyWkfrF ziPWcYWYbkETraydrMB06WI dhJBXwlQDgOJ8jQJHpWDFqC QMyWKJjbA3tOXPsVNcfG8Pb CV59ep0rPWRrckvvqZHxREQ 9xH0ifaSojbGmwUClEj4lmD QgJELhTIQsy4arhVujVK47J HAwHC6zzDHtFP3eaIooRQWm alRrmEGaTBRduLJ0kK3oMPO xIWAkWXPhLNdma3nalqTnOX PbkGsgnDumqhL9lGHoFFs7o JUcPRMsFZIqv2sdpT0lBIGt RQJyoDZzs2LlYuCpMDYsBuM 2hBAzr4UqeqwejEKcuIAjTY Ezijrvb1p0hNJmFOeklSO2Z U5fpwydC8Q9JGL7egMoQ7Tf BT6xWC4kKWmfAP40cDKvNCU lZAHsg9ChqSLxiET6SSGfHa RuVRguMKWtzYbqtKxatxX5q PTaZZDgkEUcznUzJ37kla1s fCWsZMAbcxD5uQGeUXWlAOI yv34rWBGaWBO7wRHrPkmyXu KlTFAsagDxs6KsV0Rka1Hvt SBpZGVudGlmaWFibGUuICBU eGAuv3Cqg1LtELtgQLKnzd9 kwO3fVTwhsGsfgLCtIZwgdN CaWV2oEPFgNQPjFV4oXDAoN HWnfV3nrgPrdrNvwI6mq1uh wS0gZUCqhlPXJVJePDMuilQ mmLw5CYTqSQX1qW8oguDvzq Xqe1CucZv5mPGeGdHLcM53t 9ieVOPdvxTqfoTkyOFeWS4c j0DshWomFCEjLLKwlCPjKlH bqZEvYSSzqpRXjvevF46mQC ulJTmiHGAwV4AkaabsKYIuu 5ZnhEAbe6vdccxhSE5avphh ayhkgH3zLAMmvSSdnGVsfBu sKJonJ17gk92nHbWiTJJjjC 5ccGFyIEdyZWVuLWFudGVya S7aQHH5OOH1e9filM8oZZAt NEOpZTVni5TojvlqbaJwCMY 6oZpfzYOuWLHetbFXYIS6mM 3mLMFeSIW0ZVzbknAmGCKlx CWocLgdNJeiR12js16uUcBr BIVvyW5kaSwxEKMZJj2nsCK 1SEivT48uz23fMkVkKKQwdM 6kcJAlADYsJFTyaMLru3Qab ZF8aIMoSHSuI2Daw16kj5Yk m3iceP2oUDJeo8zjtiwkeC1 rVGI9ZFX5TIW6zWnftFmnC3 duHSCpGJBfF5Pdl42wo7KoO H31OSXeb5RhvYLcdmMvTTVi jnICCGJxPCHvBNQ9kIvqjPh jH0xuHIDrYFCfC0Rht60dm3 GinF6vvPQumV5oZPY9BCA3a bT6jSQjIZBvgQUiPI47WTRw o7MlQVRhvaJYFRNqURX5EIJ cEFh9cY8fFAfcYpSfvF03xW ggs81rq2Eza1UlcLunktHfH yOta8I5RPIzl5VpsKHjtoRg IHdpdGggYWRoZXJlbnQgYm9 5MGqifXEeDSVfDl4rKCY3im B4hOC0UOEitF8lqBFqlI6ko B8lhGAiyL7iRPV0KUD8s4kw SAFuZSH3XWUefHJmf3JtdLC 5kFTrEMFmR0Iou42nk2JhHI 02FPEbw8IzG1Ejksj0EXzsc lQhRRW3PTWsiVSgm4NxuWE4 uPFeAHWaL8Zeo29dh7DkkV4 xjDFjiQ2kBJVbjlFstIeaMK UxGSUiOFBheVKmh1XjuKA8t TBzPRAoE3Xgu48eEH3zVMub WwYcLjEidO8riKUoQHQ1MoB gAT4mNIIblRCghTRvErghMW E7AIKawZqkSHQABlXhAGBuR CwwHtRny1ZdswpjKnevYRU9 AWZdiADlNTRwTz5wVG3oCEA gVDL0ZA7ox0negwqvBCOyRC NhMXsvxcDnXVT9KEAsI8p0Q FYonWdwnJblanF8xCUzLSDb ARZxg3ZuyHLhMFWhsV8ukgg nAPtvquTcHBP1NEDzPmWutV dodCBvdmFyeSBzZXJpYWxse XFzARL6fU1zYXLvPYIrBT6T ToRdWI8uRQEGXrDtJtLuTHB xDOGmiqYbQ3MdmYTcv0PpuA igosEkMCQpjqSVUmYeNTL3F POrf4IoXwuiXHOtjHRgxD5v gbLkREQjWVUoV1o1RQ33XWF 8HUYrnaUZUjWvVZO8SCOajj 28iUj7UIYgg1R4sDNmCH9xS CYippq8o57tmT2bbEPiTYZi GE9gv7W0sZRsfQ9deXCbpSG elpR4jFKedJMeVFC2LK1JDT WcDiemZRJqxhAcTRGkCFW8f C7hVLmogUokiADaAMylqPYr ED9xNWDuXCYanILyGQXsapZ BOOckOSUkE5VyR2IxsnSjjC BeZWVjgsQih8umSSS4IQEwx INtqNFtViBdXwjlORM0u8yk QWBojSXkLHT3XCwurDWjWPV wMDIgXFxkYiBPVlIgIiBaUj D8DMitDFAaBXs9VSkiF5LDX ZLmPHG4SZJ5BQXcHlE6NHf6 RBNFPy6oCHI1ZYT0Djx6ONS 5UaH1UOzeaNWtQMwjRsmvJC vdHXAkjGCgKAtrexV3SEUiT vPiNb7jXHDhozHnZZqsS8Au cux0JfqvDRXfIyQjPKhvQcU tRp7nHhYkQNd8CGKszR7eMq 6srEQggC9bjKIqUCovDDI8j ZTuOBCwxMpedpVwtpLvNA5y KNOnB8Rah2Puw54vweRiEcQ yYIAkCCDaPhPdX6kcx6TiBL nmU3FyWU80JsYssyJxXXlsi AE1OCvlHH03KWYyUGQewy8r oM1gEWIoyEA6bOFtOHZxlYm eG4Egu5Ugg96zdOW2hLZccE Fyu0o5wMXpsyOjpDHzW7czI PJscKOrgEBtUjqjig10wxGj lWHiPFHkBsG2wEHczJVeuKR bz6WpoY0fUSQgBrJ3TKTxKc 8iYQQiBIAtlGLcoh9jkIJqm PNfJUFwHFroXHLch678nEN2 qQJdNG3rOKgyk8XhlRpxbMN mpfDjCypdEbbvRZ0kHNZpBG TpNOQMlEWpMBz7UKDzIQurl 3VyZmFjZSBpcyBpbmtlZCBh wnSzt1JhD4buUX9hpQFnv1A fdGNykBerg0TpbExrgkCgKP YrXAGxv3SfCRmjBOB0DRdlh 2kcNzA2mEksK3M1XTQ5rpDh D5DfSZ1uXLQbjSGpUSkbmQQ xABIhKpWlyGPtoi2mqOfhJR 3mZPH1ocflKuQ4HvJzfADaA mIqdVIeXtYsC96uXVFPJTHa GBQpqgFhuDz2EBZkXGU1eV5 zeqLzhaIfz3EobOb7zVMqHh RloTHgOYWuiuQLqdwgE22rG TanzWepBEYHuDPhEWP6nCSa qaZfNZZ9zaDoF1TquDWdCXS nrnISPLO6wD4cJTSlQUH0QT IkucBLNF2GVEgoipUrkzKtH W19VMKxijEku3QyrIhhtaOh t4FowXnuu3IoMELhPQbmY3s 5SFZrcSfwLRGovq53qBf8MR Vqh2J5pZIfhZMqQTE0CqBKP BZjtOjmwtBtJLPqzFYff8Fb gVB3nBNfUTXrY3Abe59pTS6 fTM0wRRF6WTOklPAyv7BuSW Ubc5L0LUpsLVKvK7XuJ2Gde pHftKXqVUUdjqMxh9nnPPF9 XHNsbXVsdDBcZnMxNlxwYXJ 4e2idDILawXIbSOT6JEftlK QgNTEwMDIgXFxkYiBPVlIgI aTkQiD6AHlvMEZgMIo1DXdr D8WTWVYlFBY2FQPrLTt0CmY 4ULy8RIGREo9nLIZ5WjL8ET oeFYU1YjI7GZsvlGOhSYriS mwgXFxmIEFyaWFsIFxcbmN9 WARuHsKsG8NpIZljBPXyOcA xGGamk3LzDGXZoXvykh4wzC NjBTCbOnKoOi3zMUFdM8Zml zNkZZyeIIFize7zcCaeNRuk SoBxTSSrf0l5nWKlGWPoRW7 4R0IbixAfAClqQGYjHERxqH 0aXP46gBJmenRkguVgWuAjL sQzrUduc7MxLRHqxGfdzgMu YXJlIDIgdGFuLXBpbmsgdW5 awgwpxpVnDGMxvY4ftVPcQW pkZJ59ajMuExQtd2yfhrjqH AKpm5W5UFZhRXGpmGBwjsjh Ns61IQjnOK97ZPljNNXwrbX gSH86XPqbIH32MZyhECUymL 8zSUEfSBHonPZqh4BjeNMfl TWxUHVtunrqp8q5jXSutsZe TYCgr32oImEbWw2owYFsl2S zIGFyZSBpZGVudGlmaWVkLi XhM2AvC1oiUK4rnMJjm4Bpi Cp3kRKoOCkjNQSftG8rpP3k U9Fis0O1fUDxNxRiSsDdTUR clgytPLUeDrR1CSCsbNLxTK K4PV9ptMthVVPbF1WuK1Yvl cB2EHLiuf7= INTRAOPERATIVE o8yawWJwZNLofFHXKIIuGyd CONSULTATION (test ituGmDWCusHToJ8UkryvmUS code = [id number]) naJI7jOW4sbSoxeOYjeCNsA Y8LJNThAgIhNFFtiIGqfrFf KhSsDINdiNRqlZP5MYUcEA0 mgvzaUYoqURfgPPBtrtJ1NK TaeLXuC3NqRYZxKZ9ynjvkU VL6MWbhmS4uwjBXWwjeVg9n dHRibHtcZjFcZmNoYXJzZXQ gPDUpkVhlCYKqKSh8xN0HGr yhQJC7UYFZTmvuWZKiKC2Kw 7ihPCPteMNeZGH6IZisyWBc KEQrVJGdBIj4XWBgWAfahUJ cCX5zaDwcZpmfdWdiw9JicP BcXGlkIDUxMDAyIFxcZGIgI G2RFiEpRYtQQUuhTbX7ZkZ1 DEd5SCOOEaFjXrZyYlxzFZQ 8FdwzXHn3JLg5IUbMRnH3KW fwJkDtBrClIXUwEAbbUEh5S DIgXFxmIEFyaWFsIFxcZmwg PJafI54evBqnbE9vJM0bI45 gyUHAlZKkfFFtFV21eFQgGe xwDPTmFHdiZAZrF59cr2ZEh 5JaON2XXKb3taMvdpthgP8q GEHkoiRuLYyxtLPbJ7jkXqS lKDJSO6UeGnVrAFvHXTpRAM dNLCBSSUdIVCwgUEVSSVRPT iKVYILDO7VCZFZfSDKIB7jF LV4UJigivU2sCUOfXXQgTEY lRCKvJ9UZFGpQSC8VCmCBTN HdEp7WNVBGUBdCB2EZUPNlB 0XbB2ZRE2wPV31FWqVvIX4W RSBUSVNTVUUgUkVRVUVTVEV EXHBhciANClxwYXIgDQpSZX O2dAVnPYVtuS2kwCGzEPUsZ LYqNnMCz9K9QQyuurOlqLW7 ScXmADJKKWyhmQnvyI9rMEO sF51bd9SLv8AxRWBgXCvrp1 iaaSmqc3KwxXQkTLiwYRKlu YVpYMgykG1dWcHlo8tjtQz6 RIkiukO0CGEqyk6DTqkbjX6 tRoXub9ureNx2UBDVTlzjfg B5l2xjtDjec9WddXSzCC0BF n0= MICROSCOPIC n0lhkOToVSSszCU7FdQiHUL DESCRIPTION (test code gm5zxm7AqvNAoxAQiPJgovN = 3371) GwrcWmeg12tSI5jF02WI3iD NQvAwQ0FLSqasN1Ywd3EOTe HSUgpJWeN646h0vij7fmouW ubIS4hUhmPJLwrahcCoI6ZN uwKENojwoeLEe4CIjcPQBpf IS0SGZgvDArV5PeLCJtLX7c xrk0TMT8SNzaFXAeNkZ0ZRS fvBLfKISpgOxkUVbva601SD I4JxBvNHByhkYviTqaxO4aI iItTAZHWTTtz5YwMDLpZVQm clxwYXJkXHBhcn0= SPECIAL STUDIES (test z5gxqRAlOIEiaTG8RmEjTIK code = 3376) jm9xxa8MmxXTziSPzRCckdZ FmxuOitd09yYN1kW76EQ0kW LEqExW0MUWcozQ8Xgm7SXUv YLLbgYMtT162LBVbOTHorFk igxj1sL38RWMciJ1qsITtQT hwogHwWDnsygQfwpAdLpa4Z IX8lEiaSDIurbbbTmN7WTlu QCIvpyxmYXo8VIlpFJGhnJC 2QEJrwRUzL6XeKJMwBK6gwy f6OGH3ZDczIXMyWkC2VTHyc YLuIMEjzMlqFLwdv716LCU6 AzZpZQCazeGsaIummE6hDdH tVPpkIyRyEB5nS4DzOWWxqd CeaPVxWVyjkIEll0S7DHhyj jDktGnpbHyvnNEzLn7xnUUs n9QmfFE5ARS6CXNoSnJmZLY wuB5hgCWzMLzzBSFmOO0lLY lkODC2tF6mPMTgiUvgQTKiQ ZDdf0BnzFl5YWWjJdPDHBvf NLTgjgMqQ5JhKNhhCD3aMTL vc5fdVPCgerIwpsYvtZEwWR 11NTJivXLdOADzgL1kVjXvu GFyXGZzMThccGFyXGZzMjBc C3MxNRZab9LgCBW3FXUyJQJ iURS4WQKeRYW9kV8oNQMvxV m9eQDowRD7EBUvirOrjqOhk Eaayutog5B5YFjrjx2nfAMb XHBhcmRcZjFcZnMxOFxjZjF ccGFyIFRoZSBpbnRlcnByZX KpjEoskpGmTiM5rIgbERRah 2QieF8pdREqNTTtxYhzAQLz JVEcCaFulJ71lx5lzKY3x7G nGX5hw5HldVNvjcXxaPLsbY HiUOF8UIfscf1ctHNyOEHab gVSn271ic8oTHTpfJGbgaQF oQOjoN7tOKjzEJxmYRpzbZM eNWzmz3tqXVIyy6m5vRUkNK ZykqDyh7elEAeavfIfPVKfz RAlpIZuIEOlg82nVNcvmNzm fZekABXen5OffFxvf4HoAjC aZLclv2JpG72oqZNgpGVctF nzTCFjxgEnDMYba03ll3zuM FHaCtN4pFZtoEZ5cMIenYKh n2XswDbnXCSdr9zlZQZvua1 hesluwNKts1XumF9ahfgtLJ dynOUujhJyKPVte5i9iRJuF ELpTSFuIQfbrLq7UEGym575 gv9llhW4oGUvJQY4XFytTPR sZSBhcmUgZXZhbHVhdGVkXH UowtQcBNKpreRSrJ03ng8sy DV6b7TkYK6ti7UtwEQ8MZVp zqtlPNxpnIJglPwnHeU5MFW hkJFvNs6cuBJgTGS2FEWjgD gprcDYqN5vQABoGZe4HRSaW bInOwwexsRUBGEaX7LhBOGr lzUnzyrqMFP0jR0qh2v0MZg kVu4dGXSginkja1bnblGjcB Oxq9GeMIUvtuBxo2ZvKCUhy vOvoGWaKWXvpzHjqh5rahLx FINiDWIxV7ZbfoiyjQqsbcL 3ZXJlIGRldGVybWluZWQuIE k3YYjyayPek9RwSiUmweKyf JHpbyRxGJ3cTJYbaAEfwsSq BDB2LZHeOEUIUmVmXDQeu4Y lQY2sIFVzwZlxCEKanQ0rg6 BmRTRpu04gKZLpAXAZVFPhj GFzIGRldGVybWluZWQgdGhh wPTyrKNeTZXzQBMwQA4vETX cveIxyWDee9WubYRvbrIjf5 SldgFnCZNhEGJ3DuPIrSCth EPweBVjyjM0i9ZeGNRsmkTs qNnbiDCsdMWylIZom6Nmss5 sZPPhg8awdBtuJJ4uwQMhHT ByZWdhcmRlZCBhcyBpbnZlc 8NfZ0E4zG9cWBrkx3NeVr6o WVTra2TawiMtVuXRlAhlOLa oHv2dMLBchrqpeFFtD8JnyL lmaWVkIHVuZGVyIHRoZSBDb XcghMTgxIHIAIYirhV0r6Z9 TKvcmWNyxvPxXG19SKHpZZ5 ciZKypHFea6NeFYt1XJCzH4 mXPP09CVnzZIImtFVjoGqmq RIfZMCwJDXvduZmkt8yaDdg xURyi54peYH4kLQ5LHUleF4 lR1AgDLjxMv2lWBOryskbbJ YrrSnlSl5caSZcuU== [facility] [id number] 12:53:55 Test Item Value Reference Range Interpretation Comments Case Report (test code Surgical Pathology = 104) Report Case: [id number] Authorizing Provider: Ronaldo Owens, Collected: 03/07/2022 09:04 AM Ordering Location: [facility] Received: 03/07/2022 09:10 AM SERVICES Pathologist: Kelly Adams MD Specimens: A) - Soft Tissue, Other, right diaphragm peritoneal nodule B) - Soft Tissue, Other, omentum C) - Soft Tissue, Other, appendix D) - Soft Tissue, Other, transverse colon mesenteric nodule E) - Uterus w/Cervix, uterus,cervix,rectosigm oid ,bilateral tubes and ovaries,bladder peritoneum and pelvic peritoneum F) - Uterus w/Cervix, falciform ligament G) - Soft Tissue, Other, procto donut rings x2 DIAGNOSIS (test code = [id number]) uZzEwMzNcZnRuYmpcdWMxIH tccnRmMVxlcGljOTYwMVxhb tHbOCThgURlY6AiohjqJJnn BU6aFW7hhKipwBLkbADxYWK sJzRlv2xcc646vZMou3wpXG ITdbrqlYc2eCayE52gn4G9H bxbP83coLVdPEA5HEBgUNBy jLTqZXNtLTV9NKRgjKRnQ6c sRHWdGH2izpkvPFcwEAtyZX BeqVY7RUJmqENsH5FuOSJgY VklLYCuveg0HsPzEi8yvBWi eTcyMFxwYXJkXHBsYWluXGZ dKrIeEW5sTUWAWISWUjQSJN wgUklHSFQgRElBUEhSQUdNI K5YCEKRBPhaXOgBZVVAH580 QOUgscs7DRGkPBYUGKjPZRp KIRIBNJJQYh5RHdLFASZWDG 8AFAIkB0pZAAKYF3ZQHR8KG ZMSZDAhK7BZU0lZLNKHUZrZ TlNccGFyXHBhciBCLiBPTUV TXXVEXPIFMRFIXWQSQU4HYT vgnKFrACTsReKcPRzOH8iiK 6NRPUBlS6LLL3IUAHWKVuNK Lj5BWQYUISKZCKFLME5HX90 UCV6JIkXLNPpWMKSLV5SSES 1HR1aoBEDkuRChEHSmBXTEY PWIBBoPQPSXMRQCIhJZH6WN JKi0AEMfkhp7SFEvFWTEEWd NINsEGZCXBWZFUe8RMcMWJD WTBY5TSVRrPJ9IO4nPGB4AX GHOWFZCGFdQTLMFTIPFMn1T YYxrDUYqBta1GdRjBKUZUmG xKWECG5TDBYILKAsTOVUnrv rpeOCcvLGgBS8dRUSFKU8FO PCNKZriGREXG1iHYBBDYYuN RDnYYZEXV4HgJ1PPP9qCE49 BIFxwYXJccGFyIEQuIFRSQU 6EQcSTK4BzJ59CN52fTX7RE 7PZEEZTOFXmDs4RPEjZWHPH XDNUP4cNWzjtxZAbOMPxJbD tIENBVVRFUklaRUQgVElTU1 VXDWqLRa7DQuMSLPYRIFuWR 7ubX7LPJASmG3DFL7HUGUMS GjJXSi7ZCBxcKURfDbc2PsH rPZSMTMYXXBIRXO0RX67LTH 0AQpFRMCcUBOKBS0QOMR3IH uBnqJQxJWJxPWhbVODyLQ2j VVRFUlVTLCBDRVJWSVgsIEJ ECECKSCDROLUEHYqTN3QUDG 8vWIOMHVOvGJ2XSE1UEEUFQ VDbHSMNL9RUA4rRPS3HBVBX J5rTLdgoEJYetvYRLTHEGCW RBSZRLvaXN50DUH8gNTVDED UOXiLIOAVUIM7XCUZMUDREK aOXGN1DPNIRXCnFLCozMQvU QPWDRZJZC57FCHKHWItVVYA QAXvgQ2LTHYlGL12cT47FBK 1FLVREL58PYUDIFGDWI3QJB 70HSWXuQeIPHXWTGD1YWcpz YXIgICAgICAgIEJJTEFURVJ BTCBPVkFSSUVTIEFORCBGQU hCN4KLCL5fPUHESNFzfWItQ ANmVsIfQMjWP1kjI1UMNWYj T5XQI4RLDRLTFvTWXj6MJNK HPVZJDWSRQJ8HT46QJX7KMw FKDBeSOABKN0NPWS0LOsFpl CYmDQEfGaDgVBSlAD7ZC0eX XO9ADZVHYh0HXMoyF7MVLdM OQFHmQ8ZjSrnLGBWMXeKEAY 9WQVJJRVMsIEZBTExPUElBT iBUVUJFUywgXHBhclxsaTcy MFxmaTBcbGluNzIwICAgUEV OKBBNYhMVAGloE59ROXQBWZ RAIRJpHBYDXPAJRZZEN3QLL PEZRLTNNM8GJ9vjBVXegMnd XGxpbjAgICAgICAgIFVURVJ ERnWKFaToZ8ZHQabBHZCdon l8ODWjTAMDFByNFFrUNNFLJ TPEUf2BZyPBJCYGTU1QFFTi FM6PS8xMIA7IYYJCJVFKPkC eH6OAS2GKTQRNPBobDPFbZo y1IkDvTFYGVAAER7TDQPFIT OJJLG2LH1ieTVZqUwlyBUKs LcErXGWOHI3UTVXTTNXINYK ZZWpFPYaWAXGjBePCQ2nIN4 VORCBPRiBBVFJPUEhJQyBFT kRPTUVUUklVTSBccGFyXHRh IiAsNE1CK23ISOQFKI4pR4e USCBMRUlPTVlPTUEgXHBhcl k1COZaKIEEVlYLZBNNY6KWG EUgVVRFUklORSBDRVJWSVhc cGFyXHBhcmQgICAgICAgIFJ SH8IFJ8pDTQ9ISNMHR3xGEt ftNHGinERkAW9qKKoUVC6MU sSDYFFPGLWTHWPcT9AED9pS H45NBZbJXAczHABQJO7LGMU VY5PGCXDZLTDYNkwVRAYMC3 5TXHBhclxmaTcyMCAgIElOV g9VQypYGbVQPIMNQ09SM09R GqUZBLCPUKFgRZ6VTUWISw7 HVFvqNEXNLXZTN98SQVQbsr AtIFVOUkVNQVJLQUJMRSBDT 6sVQubKZC0HB05QKTaaYFTa XXHFFDVPE7CIJZaLWWWNMzF PHh1OUCMETrNRAdGhP0PuEP dKUXUgOYaIJLyxCp7CIZBgX OWtMqlgxADsAVOeNOp0VBQj FGFZEd0DXI7YYIANJ5mKGzv NZC0AQuxFGqlmZP4JD2wSAT RuLeinGZYWN8MugRVlQOVoP wCjSQTOU9QBRKPWF1jZUgnT QW8ARxfBOkywInUHVOMVEzH vNi4UNAGBGL5LEJKwleGaEU AgICAgQkxBRERFUiBBTkQgU NECDzjZJXEXUcoWY59YOF9p hTDgRNSkOtFnSEmVJ0ueQ3W MQFUwR7KDM4LTYEEPUmBXJr 8MNTQDJCEJUVUDZM8AK12ZM D1TUvCUUThYDUUDP4VRDT5I T5xbZNImrQMkETHsOMUIJAC YPe2LAYRQLTaXUFTVYGhgJM vNFRGSE883CLYxluv4GBCyJ IPOBLdLAWeLZIQMKSDYWr1P AqJUAHZMPS6TMNEeEGZzunw nLXDuEq7uH97DW91sAEWJZs VUIFJJTkdTIFgyLCBFWENJU 0lPTjpccGFyXHRhYiAtIFVO HyIIUPSAZDJCYGFFE7oTZnm YOQ9QF62MMUsfAYPrxXRuLE 5lG5FGS7UQXRnEXGqaIJZVL SDIF46NHTHDTEMCUTWMTRBQ FS3HT98WBZ6SLdTQDDpEBQK MO8LZCV5YK3mbHBNraFFjOZ ZuD2yZVG3BOGUWA6AAX7dDD KYGRUMWCAHGCJpYFJ2aaCYo NUUajk97VNG1GwTow0O2ETY 0UGMaQMMep3woZBMltTOzQy EwMzNcZnRuYmpcdWMxXGRlZ bEbx6dtv653aWPwj7hyPNFv KcQ9sJAhNCFxzHPkG013ZSH tRUneo1zks0NyIRMgkJKnu0 T9ZLLYchovuSj5nQkjV17fl 4R5JtduU6jvNUCwCDOaU5Tw UM5wXTPnIzg8TKB7YFI8KYD bOGUqS0ThHI8mHPIqvRQfSM d4b8ujuZepSLLyAIH3f7dyH TgfrtBtRT3qdf5dnDe2m4jt aaYtKJKvZQQpwYIXDOAhW5D fxOtnNx6cvXn4dQilLgklTX G8Uxh9FY5bxg42dxy0lItzF OMuqgwyFhF4ACmeNURdvwsf CJg4OEgnOTPkhNA4YJDzuOO bM1MdIMOiXH5ugma5GGC0CZ vsDHLqHdW9NRMofBIkWKGql JocCQgwz184CHP2LiVpFT5n X4Wtj0Q5wO0qsZSzXFPkeCN hToXaNAGyzs2vqYItKSjgh7 SdGVI4agJ1xOYddSCfLHFjI bK9CStoGC2mxe00FYMuEPC7 gk8owBXclCrsdrCtoPTfSCk wS8TnTIWrx192JUWsT4NmFP Afv3I3wvUmSuLuANHxjBH9m gS3RAYkOA7fahzyk8xxDOxh AFxnYNGsdeY9cnS8IGExvCT lF4AmyH4mVJCnQO4nlubkc8 ysDBJ4HIdlTYInQGU7JpXcC PKlj4Zsgyl3OwZgt6FseMRl WEbyS44lq480MHCqrmZjK1m wbGFpblxwbGFpblxmMFxmcz I1OZWtAXvysamlNXMdZFqvL 7nxMwBgMQLfdTwoPCzyl8Zo XGYxXGZzMjJcdGFiXHRhYlx 3WOEkoSHsVZDhTtOqF9vnjy ejJdJEJMFef8zlJ1uxyRGVs RHwI2AbLLdkyzQpWCmyELqe HaHiYHp0GK80ExBiWDWozi8 9 SYNOPTIC REPORT (test OVARY or FALLOPIAN TUBE code = 5765) or PRIMARY PERITONEUMOVARY OR FALLOPIAN TUBE OR PRIMARY PERITONEUM - All [id number] Edition - Protocol posted: 07/05/2021 SPECIMEN Procedure: Total hysterectomy and bilateral salpingo-oophorectomy Procedure: Omentectomy Procedure: Peritoneal tumor debulking Hysterectomy Type: Abdominal Specimen Integrity: Not applicable Uterus Integrity: Intact TUMOR Tumor Site: Primary peritoneum Tumor Size: Cannot be determined: Largest nodular area in the omentum measured ~ 5 cm Histologic Type: High grade serous carcinoma Ovarian Surface Involvement: Present, right and left Fallopian Tube Surface Involvement: Present, right and left Other Tissue / Organ Involvement: Right ovary Other Tissue / Organ Involvement: Left ovary Other Tissue / Organ Involvement: Right fallopian tube Other Tissue / Organ Involvement: Left fallopian tube Other Tissue / Organ Involvement: Pelvic peritoneum Other Tissue / Organ Involvement: Omentum Other Tissue / Organ Involvement: Uterine serosa, pericolonic tissue, appendiceal serosa and mesoappendix Largest Extrapelvic Peritoneal Focus: Macroscopic (greater than 2 cm): Omentum Peritoneal / Ascitic Fluid Involvement: Not submitted / unknown Chemotherapy Response Score (CRS): CRS1 (no definite or minimal response) REGIONAL LYMPH NODES Regional Lymph Node Status: : Tumor present in regional lymph node(s) Number of Nodes with Metastasis Greater than 10 mm: 0 Number of Nodes with Metastasis 10 mm or Less (excluding isolated tumor cells): 1 Emery Site(s) with Tumor: Pericolonic Size of Largest Emery Metastatic Deposit: Less than: 5 mm Number of Lymph Nodes Examined: 3 Emery Site(s) Examined: Pelvic, NOS Emery Site(s) Examined: Pericolonic DISTANT METASTASIS PATHOLOGIC STAGE CLASSIFICATION (pTNM, AJCC 8th Edition) Reporting of pT, pN, and (when applicable) pM categories is based on information available to the pathologist at the time the report is issued. As per the AJCC (Chapter 1, 8th Ed.) it is the managing physician s responsibility to establish the final pathologic stage based upon all pertinent information, including but potentially not limited to this pathology report. TNM Descriptors: y (post-treatment) pT Category: pT3c pN Category: pN1a pM Category: pM1a CPT Code(s) (test code [id number] = 3357) su2bec5UigOJnqVVaUVdalO LikeIqbc46cHF3uI31OJ1qJ ILsSqL6LXKwgtE4Vnd3LGRt BFHwpPMbY124l4grl1depxV fqEV4tHdqNKIofikmTaA4YT tuOZVnbfucDMh2LCkhKQEcn BK5GUDcbDJxZ8KdATDeKC2k pxp0QUD2BLpyGZJwXoU4LVG oyNQvFOTxiNzqHCqbx162OO X5AbIaHIMpeuGzeYuojS6vY qWoZLWTJiK2VOGpRQgiXTaz FaE5TVa5KoZjEkZ9ZRQ4QIs aBUEmOx4nTJgkOKzwqDXwYS BkUEh3KuS7JSQymxCPXgK3V BThGUzkJPSrIG9jXDsbOJq7 UQn5KoRfSmA3DBF8RQO5Gxo mILAhEu0jBIvwESNfbWWoGJ exFBu5ZcP0WRUpjd7= GROSS DESCRIPTION c0stwYMwWYLirKB8UnEtMTW (test code = lv3ykq2WvnQIwbVDwWTaqsD [id number]) WnxkYbdq48zJO2fW64MM4nJ VTuAbG3BPSvcxE1Xyo6ZDFa IDJscBXcF640b1jvd7hwyzL coNY2OHOkNSPgT5MtGE0hLA UsvOXzP21vtKNqOON0NMBsC RJgwLOdANQyYZI5JHZgtJXz C8erDYBwXC6cjflsYEeuJRp vLUIwmQX3IDSctKVyG5OiAR SgIGgrOWNxalx1UiGzId9sq MXuzCmyRWmsNRYlg0lpCRQf iJXsEIS2PPtsnPWoRTDyFUW uPCi6IZXqMKexwJYvAD2qkH oyGogqfSkja3LunFXoCHrfO ONmIZOzDNjmSSWzB3EJOGVo GjY5KwO8NCRyFFk4AEa9JB5 HUeAvZENdGEM6PkKaJVFqIY l8QIlzMG0VVVP6YyE4UHz9Q eP5PLWfHPNrWREsBmXyWAEr UXubWdGNkxvjtNHhPS6sxKi wbGFpblxmczIwIEEuIFNvZn PbSEbdc5WvYJVNrIqvcv5ij DOlUWNaVkNdIH2zPKAuA9Cx dmVkIGZyZXNoIGZvciBpbnR qYN8vRUKfoAq6DPOda10yxZ z0CVPul08mgRMmSRzoUJD8y RZaKLHrbHlvaaHtuiOvIX0o RWJhC2Cfj6Qkt28qqdClKhV dCKPqEGHsc41gpKH9hJYxsM CrSO00iFDoZvFrbqTaLLHgl v8ggH4gTIBfXXT8QV6qVCNi yDQjZHRvEuV8rWYqyPQnr3r 7cCHlLYfyrOA6KR3ikcwhs0 PaVwYdGFJstuKrtkDbd6jcF X5iOGLaSMNwfRNpETsaLLR1 Ac4eeCVdITXacwIkhpImuBD fs2QdGyXelxBgPBSdOJy7y7 raHUtvAZCqp7SeoNCcXGDUT IBnViumXUBuvSDiYCeNl3so tLnwp9OqeJTiADhaHLQbdCW bANuanE7rThDxd5imuMe5KH ibqmE4ZUEwjk40EBafPDVsH 5WvA6YrTBlmGGT1CGRmCaIt UTLhNC1LZhBrCJvSVLkiScR 8JpV2WMr6XROHDzIzFdVpQh laFThwFLFbGIj8ORf0XLeLG iK5AQe1Pdg1JHYaDJCtANti GTd7OSTsNGtoeTIkUAPxNKZ dSSjjVLuvV22gCxQdRCYFHn HEb8V0HNVrl1A7BWpwR7JfA XIuXHBhclxmczIwIEIuICBS YMHebOZnPPQtgeZqw2MvDAx pbiBsYWJlbGVkIHdpdGggcG I7fTJrfLpeYA9ufIStIZHkO 2Adp2acwlYqtL5vMXPqUO1i ZLVrs0P7NZOyu7Y1SGxby5B oZXIiIGFyZSAyIHllbGxvdy TvKTR1aUFydOBgzEBkz0Vnd 89modK1kDZbADMomSGhmudz JRWcvXL4QdUvwDQwAQMrEFY dQd75IJjoVPB8CXLoQ23qIK AZyPBov5KdW3tlEI2clBSgj 8GzlRHiyCutn0EheTlobqSp LKSwFYOgz1NbDKjzOTQdCHQ gy2WpdLVep9KfoXKkTBcidZ 23WGGggQWid7DjQTWfh21cW IGim2ZetVYnEU5zZXEbVBWv UPqckHevJ4F1cITtkO2dXXL oZXJlIGlzIGFuIGFyZWEgd2 l0aXCqMF9bCYSyRNClFXDoT VWrHB5nIJBbUNKdiDRyvdrd PDB7DVUlMUO2QYNaX86wOBC JhPNoP8K9FYG3yaDpL1Avg8 CtnVcdPD1gZPPvWTFnAHZyX MYfaYHsuOR4wgQlSWSiEuQn CvY5iNtjBBTxXRIdXX2hKR8 bDQ8pXH67zIIwZEvlx3kjiz WzJPXwQQwiOK24tSQhVSCtI NNZZJUjWZDddyBkoSt2OCFn NMP0zJ7zrgVauuJvw9NhtYv 5rMYeIUBwSXBmwKegq8HlZI EpciccBPXvV6DseHmfgxOhj 9HzNtbyCGRqGfVbLkN6XXLf fNCno8LcbLU8gSLxPLPpO5K za17dKA2zRA9iKK05gX8bGF KghXcsK8JrYNQxqkVjFMJzX MD4NZpvcHAtCQP2JMEqTThn NaBlsmYxGR13MAPezuIwy5H unBitedCym5Slxw7dgCmeic AusrUyDFLpuXthD1KmRSXsi cZpIDEtNFI3ZUvheSHmKGXw Qo0LMoU0OVVsGLx3kA5vUXm qixJacdKtHA62NWJvfzIev0 LotPohcyXlp1Jjs69uzjR5b FfbESHfTYPvopYnNDKcR9Od d0X4zICsQXCkfbkiGHLtAzS gaHZjLRKreqatBVEqH1MbV5 GcjxUnuUZpTPHrtwVwf1jyI NL5PXVkvFTqiUGtLwUqYsyf BGW4w0imJSDdiHIlYUL8NVc caWQgNTEwMDIgXFxkYiBPVl QxJxMvHwE6WOccHKZfNRf7M RjyC7UBBKInOKW0AHD7VvBa BcL5QPd1ZRCYNq5lCIY3SPG 9KLQqYTS4HvG3TGqlfYXoCU xcZmwgXFxmIEFyaWFsIFxcb uS6DWIqDoVgGn9eG49qcXND bEXisPQbRG74pPCbXdkdEPA eWmHeEXgyCiRuGf3tDnEyHL p1XLOjuO4iAv7hpLEnvO6gL SrdDqEbHLZtv5l1kDO1nALy dJS3dNCmcUrvLX6uzOQtBKE fC6Hmw2tbymSbxD6aZHOgVO 5mTYRmv5W0OKHqi8T6BJhvk 3RoZXIiIGlzIGEgdGFuLXBp parnnZ10TRB1PKPxwTTcNQk 3HLu4ZvHiR93djX1fqVLrO3 HsFIOiLDHsKV2edK4dJWYsA CBjbSBpbiBkaWFtZXRlcikg q9t1jAOuJXPqNnX1MUPmTSI 0RFCsUOCodZErwOBfH6viMB PxWYGlMDHqHU0qvNmcBG5aQ CeuOGFhsz6dBSXnqoO6GD3o mGzdlrDmdyMle37ia3UcSTd gtKrblKGkmMtyr5UwiPV9RR 7hu4xjpTUqjj4khIeknoZzS C6pnR3tUFJrj77fgFQwyvC2 iBGnFJRsLT7iSS0aYUphHNw gVJH8AGW8RIArfOHnu9ferm 4gIFRoZSBhcHBlbmRpeCBpc rFmIFDtLHfdpKYbVCK9fO9m JKCvgD7nohB6NBTvEPZhlU9 kZV92NDCjB5HgBD2eiGUojQ LfPRQ8qBPdFKkmFuW2pCUiq Jfqp3C6PLZdPHUwCF5wnPgc h0UotBxpTJIpsTCmDOc5VaC zPJqhMPr9fHYbWUkxZTYggY R8CADmNZUaHK69OIRxYdMzQ IguRPglcBbzuKebT8zhMBSx YCkiVEZdWsNnqU3uDdSslwR aYH79WANoomBgd3QxkSpeok MgAXTwSOS5Ir1xsWEtYR2bo KJyLZHgs2PnnoD4BYJtJHXq m4VgOZ8hLXByGVQjyJHdeW7 hnw7wmSAvJJMvmcAWfnmdW0 4iPOnmpElfSEZTpdGtJ1Mzl HEjtPtvEZjwvCGhH3pkJMRz erjcIBQtY7NjmZmfqeDjk3C aPzlkHXUgNvW5SJVrk6yowU WdGW6gbxoohkVhcaJbDQKgV RJoWFSsdJUaL3WtNWQ1eGKp WCWnZBWdZ0LxmSGxFPLlNnX YRXMqXAEnlpVaxBk5VEAmec 7qjwVcEQJ5gV3iouC9kdHqm mNsdWRlIGFyZWFzIHdpdGgg jf9rqUtqw1bqLFUaaITgXEX vVtNoG5FcWCnCu8ldiRcyz4 VjdGVuZFxwYXJccGFyZFxzb R7hCmHhu1vqpZz6XOvkclI4 XTHiez83VOuiKNBkJ7WhP2J tVLoiIRC5NFGfCtYzYUJzEJ 1TWvXkQCkSYKwsWwF8RsK7V Oj1IUUEWePoQzNfKwetRDyq QqdeSFh4CWs0RMuKNoS8GLk 8Dcm8TCohCNCyCYnfWWg0KY IgXFxmbCBcXGYgQXJpYWwgX EmyW18xDfYeSNEMSvHGn7B0 LSBjs9I0FGxfM0WfXDEsROY hclxmczIwIEQuICBSZWNlaX GqHJDvojTzw5QsLTncxoRcR YQkkWPyLTcbqLyskXU3sLMo fFhnFH6alYOhIVMzV3Oot8j fvaWpwW1zNUXyAO3bDFPun2 T3UNMwd4B1KHlev7QwTIUiM EBkSRUtKOMxnm3pdX9iGWRs SMMkg5qbGIPes5B0BTSrjzS fzNXeuDLvhDZme9CguY4dAR DgUqV5OLJwHsY7POUbThBdw wYjRJ8cOFuaFZ0yYFyxNT8q PJBcYqLvH7NqV9mrZE0peET ff9VlpGj4zDCoOSqaPUUzgO 7szW1lW5Bpi3Z2yBJxDMQcz 2rerYsnp9MdoAXgBOawYATp lMZcHPxoeH8uAxHgz8oihLq 5TXfcfgA9KBHpgs67JTgcTI VnI7VxF9DeZSvxATC6YFTfB pJjQYFfJI0CKoAkMGiINHik DqM8KiO5IPn3ULPBJpZlNfX vMnppYAg8REtxDOw3CNu8BD pMXiS3WBh8Ezs4FmzhBQBrE UqnNGw6HATcIUrzxEUqEPUw ULAjOVrpIBrbC14fYkSfWVN WIvRIvRVllBSuih6BPVM0aI guXHBhclxmczIwIEUuICBSZ AXyfKSmTMZdfnWvn2DjIWnz biBsYWJlbGVkIHdpdGggcGF 9sJOvgPhfJH5tgDMxHFXkG5 Ayb3zbzfAqeE5nKPCfBD5uT ZF6oFWkiYXtt8z2nMPlZCV3 aXgiIGlzIGEgaHlzdGVyZWN 5o409XHZrTUNlm0wqK6JmvA baa9GcA0zvAV7tyBRxk3Wsn R6dEOL2FRmiLICnNDX2QDHo W54dNWc9e4btyAyamj1aEPG lE7rgq8DlLU4fm4xowDSmZI NnEWVmjptlPTXovY0edVZaD QDsgHf4FUOsgW39UzdmaI5h SKlyjiFwAQfjSRW3yVHpaNW zDLFbv8RzTSezfUawc7koGM VuXLPbXMY5xT5xXD5iPLL3f aLrFLF7OQOuOOxyZTguhpl3 aCBhbmQgNSBjbSBpbiBkaWF fFGXiknO9jXPxUPY2rDMrvN LmMB3ly9GadPRddK6vLVFsV SBtZXNlbnRlcnkgZGlzcGxh aMMiqISacVrxiLLfw7JthZA gkrKqFCUwkl23eKm5BSKed6 S2lAEdYrPmLEhcn8Wnjb5zc WxlcyBhcmUgYWxzbyBwcmVz US17LA1hNCGbXIRsVJGok4Y bt4IyhEgxMYHyn9EgLhOrSN vhMCMbjl1cATQlwsU3DH5if PmlcpIxltJjeQTyUP8hqC3c cnZeuRUuoX4iyYzgy3a2kDH qtuDgpLUsSQOtgajsq9HxnK YlEm7uQEXou14uGjJcDHbuQ PBzk4LavZEao9W9pP8fGE3w MBEjVVUnn9dltNCuhtYbbBA wC8ciVED2uaE9kLVtxU4ewM ZibR8uMJU0ovQzC7Eih5Ktf TckPEG3JDR0vbI6oIIhICFz bWUgdmlzdWFsaXplZCBhZGh gx4kuptHhDBALiSKvUk40HK xuyRWbe2TxemUdBUGpTBHsu 8MwQUroWXE4qpTtynFlF3Kj WX3uCsFbQGmgzZY0TMBrTWg sULTxo71jyiQsp6XkkQExUs Y6sEWvHjStHQXaTMNjJVYci ULlu2FqAAwekFibtBQzzRJu XNBowfjqB34vv65iCzKvw3d lytWucuNvf25aruVcoXs7LE rbNSDoGFKlINE6fT8iXVlxu GggZmxhdHRlbmluZyBpbiB0 qPUiw0ofnT1sBIJyb2cjrw4 sGK0iQJbvc9vspmEtQGZzGC kpDX23fUIoKUJeeC4rnYnmO GWitV3dwHUcxXNxj1FqQmXh RHVlIHRvIHRoZSBleHRlbnN ulnIaTAUjGSCdwbHmVK5hPH SrJDF8kBDutOYdlP6ccEmvJ ARmQ6H0gQD6xDLssTCulKCz nlHubMPjVPOrNQA3yC7hPMk vKQBvNAHiMZA5iuKzOSHjs6 Jhy7AeRA3wtALoHKLjleYDp FUpiHUwvgSiEO6tBKZ1jnHq LPqyQyHrsIIwIl5SSWmfAy6 yQZOfQAbOWVVeLUajFXR1Ok XvR80tCGQrEGOnCNxcyYynT U1pZVR5NGOwRCCnG9Gonja0 AU2iMCH1enplSzUeAgEqmRD kFqYnB47ko7u1vABtJJMrE7 2cx3vjmUuab5CyZ8HpnbuiO Whba7DuKYFhUTMjeHQrA8ah ZCBiaWxhdGVyYWwgYWRuZXh pBvACxQGnZ78cm98ssSHjQT iqLPZ1yKdiTRP6GKPeMVPfk M4hvFgpLHQ4XIQ7nrLgofW6 uEEbzM3cpQZrcI6qLNH3dbD yY7YbQXIPnMQjIV79UYVvr8 IgdXRlcnVzIGhhcyBhbiBhd RYcD4jyAXZmcVFgKSUtEHTg qvo8y43bLDlauDydl6GaKXP sUCJgfNUykNVgJFTqb3bdAL Kwv9Xrz0Alw5i4kREgqHt8s BOiAZF7TC3ql6watQZfxs6g vOchvv4wFLZefPXgvSOxqPA aymN8vYIyuiGhCRAzRZR5CT FpxGY2YETrseY7coGjzWHef HZ2INMhvHTlEYOigzkfi7Jt m7NcBR5aXYAlXMMasiWsqln anwD4vBDicHOoRAIEdHQdsI RlcnVzIGlzIGJpdmFsdmVkI QpnpJ1wDD10ETPkg9SsVH8x UEWlk6ZgrcplnbJcZEa5QPK rlL0sWYeksJyepAEaDWKmPT Y4YBBbRlBlwMLakYSdYHSvm zzce0EbpSWvlQX8m4D0WZZu dXRlcmluZSBjYXZpdHkuIEE tjOFpR1XvbLAyDPaef7AfMQ FyfY46peQaxHMypKEkCGUpG DMgeCAyLjUgeCAyIGNtIGlz NNhnKP03aHBiQDAueX1uoIn zXHKjJ6w7GFH1IPC2lyPrxI L2y2F2jI9eQJUgMYUtg8S9M ZSpg1OhwUArnwEiOnTUoEMh dXRlcmluZSBjYXZpdHkgaXM gdGFuLXdoaXRlIHdpdGggbX MnfRqqlEVypAEbKA5cXHDxB YRpiUdxs2ZxyR73hYD0oUNm I1T8zAJ2IaJBwVQwPQQvroP fPNCnUhO9BRBqP32eSSMnms T3yQu3ZLNgkGRiw7LqRLRqu 5UzTumsOVAdFAHeL0IfROGt XVXtz2p6hJEzcDOmD2ydTKY 3psO0pDUbl0XaVOAol1IeoM 1laEigrpJqMjT7tPDkZS3cg 00auROrrU3qMUHjTNHaakVa yWF4ioh0nLKtrvUxNBDyfVm hiuaphAWtaIcqDW5pGKwrCR ThrFTtwE8nAIC8HJG3moLjh yPpTII6iU1sJJBotS1eIQnc cGxheSBhIDEuOCBjbSBteW9 tZXRyaXVtLlxwYXJccGFyIF WzKVLwHOD6TIT6wCFpnCIgE ROtlfT7UJLwn68dsDC6ibWr RfZmMGIliJVdPzBqU05sLsh kZoHoTFMgVTAoGNiyr8EzTW 4gdHViZSBhbmQgYSAzLjgge SPfVpUrcVUfMJGfWD85OYC6 LiAgVGhlIGZhbGxvcGlhbiB 9tNIzKKGehn7rLBCyvlU6VJ 7vuGozenW7xJCjLL94eXTgq TdgGOTers40iDp2AVThx8V9 bGVzLiBJdCBpcyBzZXJpYWx nfKVzHHY4cV7nKMQiaB7bAB raeXyiuXHyAQKkofPdgG42W Qm2nTVgWwBgHNkyRRioNtBz g0OlqizykEEjx5MkrNRvz3e jqADcPEZaINB7gWLoPCUagZ FuIHdoaXRlIGFwcGVhcmFuY 9XvTIc4WIwpGMAlf8WevKNo WHOfLDBcc5XxSJsqBMM8LP5 wnF0ngULarT10VEF9gNHpjK JmYWNlIHdpdGggbXVsdGlwb COklAYqVXg9vTRpdRolm5lr vPMnQKycxFJeTTbgi7eepmX aVNSOdyQcHNSmiix6gADsJA RxovW8csCryTSllN4tbCZve LFencDrCqyyYD2kzXItCPqt vbJeLLvnBRVmV0l9BYCbqrQ 4TTNxzmCrv9Qqi2BchI6kUY MkxdNkRbGNjRTyblKfd2JmV CBlbWJlZGRlZCBpbiBhZGhl y5ytsfXuYP7sRSBtdxh4i53 zuB0uRU0qMBTwbwQgr2AoAV 8sQBNhAAV5rMClqQMtIMPmJ VF5SLMkTAVpCZZemEhihBet bjA1qUMmOXEwFIBhzxHonnT swZQwFBUhfMFrizfdRW45YJ bfWTDmfREhMP9mNVUqVUBuV GNjVXNdpU6xKTCfSWlqJ6Fb NW14vf6iDLYozfsukHJcQSL 6fU7kgbOpjfRxeOVvBc4xvP YmSRUpVYVqu5rkgDvtJQ39A VQjUC5zbOEgAG7huCqiHJKa duLzhEDsCMYwbRW5fB9iODH hJAVgSBNsXDfhq4rkirDpIC JufBmzoRlvuqD4eTXzPEy5k FZdEKJmKHXen7vyeX2nHHUp HGFlhWMgr8GvWlCiBYOtYxT 7vXVoy3PdszcmgITcdBIeRZ Bzckcxh1c8qUMgUZgfqLV0T F9lmyjfD2D1QLL2nkIuR0Ll MX6yFB5uSXucOQ39oCMhVXW rISTxr7MpcKZpcHP8MFTrTu CoBSncLQAvqTyapFjjaoT2s ZFuCYHabFBtsaWcA93nsz9s uFIdXFUtuyF4pTWnYFDgKQF nw90pIVScPLP1cKJgDbfsTk EqCAGhlmJwc4IiI0Lsn5Rzf SBpZGVudGlmaWFibGUuICBU sPUcw9Gga0UeUVsyQMEkjh4 bnZ7wIAklzSpnmMLxFVoynJ ZbZH3jAVRbYNJuDZ6tBRZmT IRwoO6gcxQlafOmsI9if9xs uD3iIQIegmPGHDPrPSMjojC yjQg8UGUlUFE8rN2fitBmuv Gry1LcjZq0gBKhWuPBaO22f 9vuOJPfugVepsFbaKLsZV3e m9BgcBwzSHHyRYUjmRRpUdL inBGdZENeefIZhrtwD47rMC orPOwkJALlL5GveynyLTVzg 5BadVGbu5kbdznzHJ7delrv izmqfA7jIUEokRIhlZMhaTh rODyoP58wi51lQsPyNHMhxW 5ccGFyIEdyZWVuLWFudGVya N8gIIJ4NQI4t3rftO0tOLFy RGLlJYOyo5TlgtipzeMpDJQ 1kOaczURnPBUzwyRPSIO5jO 2sUWYrOAV6YTirubBlVLAon NHbmCkkAWceZ82ss51cCrQq FNAslV3dyBfnMTSTRb7nzZC 1YBlkQ85it13cXhJxSPXkgL 8tiTJbOTHfSKBlzFDot9Dqu NL6tFGaQIEeH6Yyk94vv7Ru s8sufL2jCDJno3xmwutdgP3 fZWD7XAC2DDO3fEgmcHxkV9 uuGFSeHNIoF3Pzl51yn9PeG C23BPXyh8FwhISbyuOlGWMj ouFQHDRqJLIsWXU0jIjtwIu tS4sdGHNhTUCmA8Jdy57hg8 UomE8ohMAoqX1iFAV2IIF0c sC2zJFhGWVgaOFuGG11HRRn i7QuCQBsxeDVLTWuOPV0NPS cBAn8jU9nNWszZyWpeI42fL uxh71ei9Lyi8MkqApxfhQbX mBxq7Q4VUAho9LnjHFmnqEi IHdpdGggYWRoZXJlbnQgYm9 5JYwggBBiZAYvCv7zERY6oe C2eZN0MNVzcF2ogBXapE8zl W4ckLMunO3oFBK6PJP8z6ou OIHmPPZ1SNUvqPVyv0IvdSC 2fGFxFDVhM0Bjq92tq8TkXB 44OMYnr2BkL8Pfkvd4KAbxh rFoXYC0VBJygCIau8PtbLL9 qGTeGDXbM2Ood61bx9TakW2 sdJOwaE2tXJKtxfPalRfbLM NbKZXnSMMkjBHgs3OnyJH7p QWyBGVqG7Fvs23jPR0qSHoh PzXxHtDnxE9ffTWuCGT9HxY oDH2bIFGgiHEfyIPuHtqcTF I8OYEjgJvzQFDACuGfBQJbV VznEiGfh8OanwkdXqzcXHW6 NWMcqVJmMHKfRv5tWV7oIPC eBAX2LK8mn5uhpltpFYVoNQ JeXPxpyeXaNPB8SNCgY9v9B XQhhUczwIkmrgE5yBJuCWWn HAWgu7PksLUcAJFamL1sueh lQDgbqkJtGQP4JGAoEuLozN dodCBvdmFyeSBzZXJpYWxse FUiPFJ7cE1nTXAuYFGzUL4B MpTkTD6eGGRRKdSqAzHoBVP eNRDjuoHnN4WzmPOac3YuyQ rixxXlXTMastBXPwDjOMC6X WVmr2KxUzjxKHIwwQAerZ7w twHnEUArWGFwK4y6WE52GMO 9FLEvutKOAhVfBLI1NLSolp 55uAo9CSRjr7N6hXQlNK6dO CNtvrs5a28mwN8fxTFkGQFu MI6ug6J0yCBvsY5wsIRbqPM uluS6lOMngFGvJQY3DI6FCM WoTznxKLNpliRlVFCtQFA8a X0fVVrqqDeqlZIhAWnrhHJp AE9bRUGvDOUlzYKkKGUcywL NAFjtCERrX5GtP3JwlrHklB WwMGGzsjUbh2dgFJW7PWZsb JFvsMMcZuYzAefqPLU2j3yh HFAuiRJaPVA3ALityMFbANX wMDIgXFxkYiBPVlIgIiBaUj S0TNytGIAgMYt4LDbxC4XOO HQuBTY2VJR7PLKyUzU5EQk7 SOOFAk4fJSH9XTI5Zmb2QCZ 2LjX5FYltmMKsYBhcKykcJT neSLSetIKpANhwtzY7XKYcM iIjLo7xWEImrqKcILtmM2Vl npl8TfhoFHLiIjDuUJudAoF uQj7aWeSbIQh6HMCbxS7uUg 1puMEmzX6unEPxBKupAXT2r PVtMDPxhEhmhdVyhdJzRG2r GWEiQ5Obb7Fis31qaiFfDoU lXUQoPHFrKlMgF5jio5OmTA zkW3ItGV07FwSkyiEgIWviq II6XPzdMD90KHUnXWBeit6n zJ2rJGTboVP6gSGtCCKlpWj nI3Qiz1Xqt21cnOD7fOYmkU Oap2m7vBOwysCycUGlR8mlB XJleXJakVHkAqcvvp69rsOj gHMkYSUiLkJ0qMSchDUxoIH us7MhyK6kSLIrOhZ1YBVlUq 7zKSErRTFrjVZmxe9rxZKiy YWnUVUwSQmyIIVxd538fYT3 rXKfTI5wPGord3EskEnnrKO matYqHwjbUaubZZ2eASYwNR ZlUOVAtIGiSDg6NNTfLIqgp 3VyZmFjZSBpcyBpbmtlZCBh yjAuj8NzY0lyNH4ijATxi9K bwFZitDmoy2EjvLnizcFnAK FhQCKcb5CvVJonPQU5JJqxm 0qnRkA1sKvvD4X5CFX1rqMd W8LhZJ3dYTUljQSeTWmgtRO pMAMyAzLqqHTsog4adGlqHX 0qUER0ftrvPbH0GqFjfFWhU iDhsBDaRfLmC03mKBLMIISn IWEvjlIuySo5CUGvERO5wO3 xhfPjyqJtc9FlbJq2eWXlSb IfhUYmKKGcrbEOkvnkS69sM FxjwOcdNKWOoQUmHRF0wSPf pdXnMNC2jbQgC2YhlCOfBAN vgnGHZOS1iZ0vEKTcUUJ1PH WuoqEBFS5ANQuytdOrabMiQ N68QPEzpuGyw9LopKejkkUc s4ScnFsvw7LpRPFiZJxxU5t 2TWYbsAhaOOLfeh42rPy3VS Pij0B3mPWteBOdIFZ9FrOFN YYhrMokpvDiVLAzjJLwk6Eb cOP7kIFqAAApW3Bri59sHQ3 fMQ6dANH9VTRdcYNqv0QhIT Msn0U5LZneNAZpT3PsE0Anj fYbiJDfAHNcfqZlo6rxTWT2 XHNsbXVsdDBcZnMxNlxwYXJ 9s3pzOCPlpKNuSIF0OQlodO QgNTEwMDIgXFxkYiBPVlIgI mHcOjM3UGkbZIJgEEo3WYeh B7JDSCVgHZF5ZZZeRAo3EnT 1KLu5YLZGPh9nAMZ7XeV4RN txWHM4YqP1SPoiqWLfEHatC mwgXFxmIEFyaWFsIFxcbmN9 JKJdLfUzA9IzQYrxHTMfPlO vTNbrh3KeIHIPqVpozh3ywA GvEUHvOkGgVt1hCRIwM0Muo jEdVLnwCMUvfd3jhZvrHDpw RwAbGVMtg7q2qYIsBLExWM6 6U2XgpxVvZJpsARDtUKKkeH 5iQT51cLJeqoMnnyUmNsRyY eIxvDvoe3MwMVZngZrstdYr YXJlIDIgdGFuLXBpbmsgdW5 qkvjgtxVaFMWvxL7giFMtEC nlYQ34ifKpQbWas5dsurafV VDlh5W9RBLaRSFreDAkzclo Ib06XNhlXA16NArfJHHvboI kFM71HPbrTM60YNugZYJvaB 5jGHVjMWUgrEXtn1HvqYMbf JLcNNAfxqgpw8j1lHPmubAl BEVzg07lSwVyPg7szMGkm6A zIGFyZSBpZGVudGlmaWVkLi HoG1UzJ6wsXA7ckTMba7Tsp Rx6cGTzHPygRURapF5ltN5p P3Fbx1Y6hSTqCdZgAfUmAZP umtgfVOFdIjN2BQZxsHSeGY L1XZ7fpZewQKFmQ8McY8Jgy mZ5TQFdsr3= INTRAOPERATIVE z8vtkFHqAINsiYEJUXAhQwe CONSULTATION (test kadGdSIAecQLyD2TveiagEK code = [id number]) ntFW6tUS3edAludYVbxQMsR Y1ZTGWuDlLmJGBaqYXmejId JtChSHAdhBWyzGV7FLUnQR3 aloozKBpqNNgvCVYgwmP3NO BdxFPmT1LfCUNiPB0egygdT EV4YMvruS0kkyDONbhnDz6z dHRibHtcZjFcZmNoYXJzZXQ cOHBbaOtcOZMxVGi3nJ0BHy uzMOG7NPEIEnkoSVVpRF6Rc 7ffXGUicLKiZZN7KAzmkSAv BZZbLPOoJWr6RULbOUnhrYK uPX6xcHgfEvajoLray2LdyQ BcXGlkIDUxMDAyIFxcZGIgI U5FHnJeTHwDUMxjXvP4MyX5 TVj5QSMTGxBgLxTuIdxmCBX 3HwnlGHf1LDn9YIkTKaE0JM dpYqIqJcFrYNMlLEhuNRd2O DIgXFxmIEFyaWFsIFxcZmwg TWwkV73wmLqfcM8iOC1bA86 guKLEcZNdoTErMP33iVVtRy raKKNyYFziFDQkA21oc2GFv 0DaET2XRQa2wyEosptxnU9j NYSbbmSiREmslWYnN8udBdZ nWKUDI8LrFpOkSLxSVPdEQD dNLCBSSUdIVCwgUEVSSVRPT pFYSXGPJ2LOUGEuTXVJC2hO CT7FUyhfkH8xFBTqPYZaHWB oHWSrX0YUEYdRNH3EPhXJJP RmIj5BULNVPHgKK1VNETChL 0ZpS3QFA5ePK90EMpPiSW9W RSBUSVNTVUUgUkVRVUVTVEV EXHBhciANClxwYXIgDQpSZX C6hBBsURTyhM2ieJDmJGLrD CCoYgAUi8R2YEipktSfxFT7 NoVpIQFIRJphjPohhH6iLYY gH24dz0NIf4BqNDWsMFbmj1 hniArea2TahVNaTWquSLUnp OYaZZovqW9kZvWap1hqkUv4 NKkumuD9AWCssj5HUswtzJ1 tYhZvs3vshPg7WFQCOmnjtl X5x3ewaTujq4GihMCnMM2VM n0= MICROSCOPIC b5mueFXaOEYiwHJ8LfGvHSQ DESCRIPTION (test code hb2ugl0LkhKVasXCuTInnqR = 3371) XqnfTexu34zKU1zP69RE0sI IOqFcS8LXLljpE2Xhr7ZXNi UFUhsBCkU810m6ota4aaolX vsJF0jGaoRAYptcacWcZ4XP knXVBlpuglCRz4ZFphGUQup YA5MBMnlJAdZ2BpUDSdBI1z vlc8XBI5ABhoQDWnZmG4LMN ckLZaAKComFieIOivj344OQ J1WpGnQQGwpaQuiWwogA8fB nJePLFQFGRvp0XrRXRsWNVs clxwYXJkXHBhcn0= SPECIAL STUDIES (test n2clqXVeUVNmxYR0VlPoGXM code = 3376) hb7gqb6SouUMdsVYeAWqjsH ZhvfJjid23yMP0hF34RW4aB THpHmV2GQZrruT0Bte7ZSSl LSGqsOVkH406AEGhPHCrxWa fsdl9eP10EDHisQ1sbTNdVF ivngZwZWrdaqYhjyPoIfn0J SJ5vOzzAPOmhnzoHmO3NOme MWFloczaLZq2ZBauYZApfAN 9RDYlgNMqF7NiWLLqYS1gqo f5IEY2BJcyTBHvNjS2SSUpm TZfNDAlcSwmUGlsi710WXZ1 QdYyWDMxlcKmdLjfeS2wBaO qQNpjNxGgPV5gY8UoKRIalq HtbXMlOOhzwQJty3D1AKfwd lDbqFfekRvajGQsAe0nrNEn j3GbcIH5TXY0QSFhVhGbAFK roD4cxVBmHFrsMCEvVO9wKT hqOJN9vY5nPENncFdhTWCfP HEob4RqlRs8PFQrRhVTWQbc LWZukgMnG9QyQPkpMC5vAWB nc9tvSYAgwwDkocUxtSHbPP 28QBAydGPvMPLkxL9xOnGvq GFyXGZzMThccGFyXGZzMjBc O1IwIEIxl1NdDPV9QZTzEIE gMID1WKTkCHU2jG6uHKWwiN v7uUEmeDK1JTHbywUeylNgq Zhusamxa4I1YDygfg7uoEKc XHBhcmRcZjFcZnMxOFxjZjF ccGFyIFRoZSBpbnRlcnByZX SjaEbdgwTySzU9lNyiQROdi 2KydS5foBPnFODohOqgEUPq OMHqKsDocM57ex2uzFE0f7Y cCA3dr0AigCXjvpIzqBEwbC IkPUF5KRedzm9nfJIaICSgw zLFc122aw5rBKQwgRCqneGL tARajZ0kBAqoTApsSXkzuCM hMLokx8ycRBFgr2w8xTRqAV MmomHyl0inMSmsamQiDGNuj DXkiGYwMVXde33jXDmoqMep zIhfIGLge0ZjnMort2KwNgA lUSqdz1UjX45xmAVkrCFdmG cmDWHvllGxLPKqc98ov7khY EEhBfY3gCDwbRS6vBUirTOl m1AcgGkbAAIkh3zqDERmdt1 vobqojQYbu2AjxB5elifnRZ uwvLDhccXtIGPxc2p3kOHhS HXeDJHjMOdhzDa2RKDch373 cm4wxzH1oTUdMNX7KSwdPZR sZSBhcmUgZXZhbHVhdGVkXH QzqdCnGUEswhJQjR73fv8nj VX2c3BeQS8ir9YxzTL7DXIw dpklRIvslPGggNerHyF9ZVP evYHoTh4jrYKwIDV2SEVrxQ hpeoOAzG3yXXUvUYi1OGBnL fLpEoovfoCBOTKwD5UaTHRh noIigrkcGJH0yC7ni8n8GOo sGs0mNUJmwbyqd6eiizQfqI Zob1TnABOkcaPgb0YyNXRig jAfhDYyPUXtnoOjhu8mvqYq ORGaGDTnV9SoqacymRtcwyW 3ZXJlIGRldGVybWluZWQuIE u8BTpgdaShc8LaOhJnubAxe FEqykHaKI2mTWHuvWTteyQc UHF2BWPpJQHICcWzVGMbv3U gHP7aVOPpaPmdTCLhkB4ed4 AnYHXrf66cOZHxEGZWZEZen GFzIGRldGVybWluZWQgdGhh nQSafDBaFQFzXNNiEJ3jUOO epmPbkZLyr4TaeIMqwwLyw5 TgqoZeLUDbPBV1ZrDWyQMyx STyrVHnerT5v2EaNJHjktHd yBsxwDZdvCZmkMNjc8Yhjt9 pRRXcp1ggbOlnXC1kyYBnIL ByZWdhcmRlZCBhcyBpbnZlc 2EeW6K6wI0uFJivc8CyZz4j TLJus4BlwzFcKsSNqQgmYKf bSn0nMGQmyxhgjVVjP7NdbW lmaWVkIHVuZGVyIHRoZSBDb BfkbKNgsEUJVFAziyJ8e8O3 QZsbdGCpsmCzJC36LEAqRP2 zoUQqkONja9DiKUs8XCIxX6 nEON47SLomZVCrxEPswJtxj KCnNYBwYJVfxdEeeb7ajVvu eKSfu80xbJK3fSP3XSTjcB2 lM7PdEVczQi8hMDGljljhoS TjvPunDb3lvJCdvB== [id number] 12:53:55 Test Item Value Reference Range Interpretation Comments Case Report (test code Surgical Pathology = 104) Report Case: [id number] Authorizing Provider: Ronaldo Owens, Collected: 03/07/2022 09:04 AM Ordering Location: [facility] Received: 03/07/2022 09:10 AM SERVICES Pathologist: Kelly Adams MD Specimens: A) - Soft Tissue, Other, right diaphragm peritoneal nodule B) - Soft Tissue, Other, omentum C) - Soft Tissue, Other, appendix D) - Soft Tissue, Other, transverse colon mesenteric nodule E) - Uterus w/Cervix, uterus,cervix,rectosigm oid ,bilateral tubes and ovaries,bladder peritoneum and pelvic peritoneum F) - Uterus w/Cervix, falciform ligament G) - Soft Tissue, Other, procto donut rings x2 DIAGNOSIS (test code = [id number] 3220) uZzEwMzNcZnRuYmpcdWMxIH tccnRmMVxlcGljOTYwMVxhb fFoZEKdmPTsF5GkqzeuZLqk IH8lBU1saKgouVKykHQaJOZ pBuYjp4sfc584nRWso7xdOH YDqjwldAg1pUptU42qk9R8S vzaV13mxJCgWRO7SZJpWIIp eTTjLZLaGLA1ZZTdgAQmR1o hVCZmCK2ojfsoFHzdMKidUQ XqrJX7JJOrcIVaJ6XfFWFpF WkyZMTuzhp4XgRiYb1gwGDx eTcyMFxwYXJkXHBsYWluXGZ pPwXdAW4nSUQDOSMGBnTBGA wgUklHSFQgRElBUEhSQUdNI I8RGRWOVZfwYFiPVVKXV285 ZOKlthm2JFFjMKNRBJuNUPo HMFRSKBTIPn6SDtMSUODXFE 5VEHNeE7fCULAUH6WKJQ9RX SCBDYUbK8KBM2vAQWKHAXsQ TlNccGFyXHBhciBCLiBPTUV OHBIIMKLEIKXQLNMKTI0JXN mcpYQaOAInHnDdGTqYM7goS 4LQYJFoZ9TSC6HYPWTGPdFI Uk2JYCGPAHGWBYKXYG9CF40 SAR7HKrMYIHcQHIUTI3UFTF 7BT0rbMDTswIDjXRIyZIPBD LZZTDvRJNUNWYASVfEOE7TR VLx8RTWvzll7GNHlZEZTIXk PUVwJXSBOXBJLGo2UGiPIKL YCWD5SAPHvEX8MV7bQSS7KD COSLYZROWuKUQXOACCAYa9U ZNvbPLVjZuv9RzHdSCUBDcP pVYHHZ9PNRWARHHkSXRGtbd cwhNBfuQLiZP5hVQGWPB8LG JNUICvgSWTFN3bPLFGULVdO KHgDVBEMZ0OcY1ZKU3eCK28 BIFxwYXJccGFyIEQuIFRSQU 1QOxNAT2EfY83CQ63jTG3HQ 3QXNEEUUOTmJc1OGLpUMHEH OCJIX5xMRrpbqKYiASYbTfO tIENBVVRFUklaRUQgVElTU1 CPFShTUe6GSnBHOUHFEJyZI 0dwR5TMXMYvH7WZB6EKPUNO AqPGIy9NBTqlIZMlZvz4OcD rUCAPEZMSKPYBPI7GK97SBY 9AXhWHMJnKYSYFC5ONJX9EW nNovSIqGFRjVTmvDEEmJC0w VVRFUlVTLCBDRVJWSVgsIEJ COVKTYPUWBWIAWFpKE3ODRT 5qMMRAXJEmHM5ODG5YRNDGY NMmCIPII5BEU7kCOM2XQXPA P8rPPtwcKACjleLSMQIAYSN LWJQDOtmWC06UFE8aARGPGB ZPGbDCLMBXSG0ADZDPXLCTB sZGPK6HHLZDORhWEYyqFYcR RGJBXFDXF48AADQVPByVXTW TWWyrL8WWZJtVT74bJ15VZD 0HNFDVN83XAKBOWQBOL9NHA 12ZGVPyStVCTLMJJU3RSoqy YXIgICAgICAgIEJJTEFURVJ BTCBPVkFSSUVTIEFORCBGQU eME5KJIK4iWGLNUDFqxVLkS LWaTjTjWYiDR5fyP6KIZFGj R2ZUT1KPGFZGMmVVYs6AFJN PCKVFVMLVEG4BT60PFW5WOm VLMAhLYAFVA1XQON2XJcSts UGtYEHoKuKjZTUmCI0RO5cM NK7LEQBYPb0UXZyvT0BURqT BJPDiF4MhQddRRKIUNjUSCT 9WQVJJRVMsIEZBTExPUElBT iBUVUJFUywgXHBhclxsaTcy MFxmaTBcbGluNzIwICAgUEV WFVGCQlNCNTheX60QKDWGKU KWHEMsTXDBNAJAVOSTE8OWH SZSROWAXY5UX5ipYNFiqDfg XGxpbjAgICAgICAgIFVURVJ FYeQSHkRzG5IAExvYMUTxhc b7AEKqFHPONGeHYRtAEWSDH GQXVt1CMcBQHYOUFL6VYEKm NO7XH0cUJU1XMKQVIMZDBtK zH9VDA7PNDCKDALqwHTZiVt d9FnIlMCGJYVDWP7STHOYCQ HPMYG0ZJ0gdOKWxDmgxZHNo CzKdWFCXXO4WBALSDQRFMDO WEOmKRNrQXQIoZfTGN5yNP8 VORCBPRiBBVFJPUEhJQyBFT kRPTUVUUklVTSBccGFyXHRh RaRrGM1VE31IYFDWIQ2uY6c USCBMRUlPTVlPTUEgXHBhcl y1FJYrZRMLCkPCXBUIM0GXQ EUgVVRFUklORSBDRVJWSVhc cGFyXHBhcmQgICAgICAgIFJ GH5GCT9wMMZ0RNHEWW6mLSq sjFJDmbOQxHE7bYBlNIQ8LY tPQQTJXCFCXBPNqW9ICZ9fF H19EJAoOBPdiNGPCKL0HJYK LO5HYFPMWCXFPQzlKLJYLS5 5TXHBhclxmaTcyMCAgIElOV r7WGgwRPhGWYKLWZ02QH80Y GuFJNAGRXYRmFZ8TTXKZVb8 VASfiCLKYTDHVT70LWZImpt AtIFVOUkVNQVJLQUJMRSBDT 7oQUbqAGP1YW24JTVhtHYUa UFNLUWGOG1GFCFzKISNQItO OAn8YNAMWWlVSGkJsG2SvSS uNCKTrFYcYROlxHr0OLZElV QVuChjyuFTdSRUvZTu6TVHi VHQEUd7KJX3TOQZMF1yYCnm NMB3OBzeJPtjhFQ3JR0qJGE KsBmpvPGOYF0MaeCRzKOPqK pVyEDBRT6JRYHVKC6dZYrcQ JP1EEpoXYpphJnDGSERWIdR uFl9BJOJHYH0RITQkntRqVO AgICAgQkxBRERFUiBBTkQgU XBYLwlLUTCBBwyGT35TNU7u rZUhZHFzZuEiHBnKG1yuA0Z HRBGkL0IXL7ZHDPRFIrJJBb 1YUSPUZFXZKGHOGS1TM18DK I7FBjYLWUeGCJMKO6URBV2N O6jnVAAyyAKwKVZvSAEZKKQ KAo2MAPQIXWxDNEHGNXctOT lMCWQMQ329ZILfany4WAByI HXLYNuDMAfTBTTISXJBNd8Z CkKEXRQEOZ2NOUUsOTKftze nOYUqHm6pF61GS69vWYIIQq VUIFJJTkdTIFgyLCBFWENJU 0lPTjpccGFyXHRhYiAtIFVO VwQRCXUGUICDZMPHW6jQVaf VVC1YN06QAHkyWKPctBTeKM 5jJ7QTB8MQQLfLGSvtRRJBG UCAZ73YXUEGPHQCRWRAHGFL IG1IR18ACM0GSrZLZPqTPAA LU3JJZA6NE0yeNNGfzJMcXR JyM6kOVV1AIRGZL1JGJ0jYU IPSGBNRZFGRGKjJWY0ptGRx BAOypz02YSK0EcGbu0H7VBL 3BBBlPPBcz4mtSKXetXMqUz EwMzNcZnRuYmpcdWMxXGRlZ zAjs3vkm656lBQnq4esAVNv MmW4xVRaIULupFYnF601RPO tIEggk0rws6AnPUBafZJhk7 F3XFWTxsfbvLs7oYylC73bx 1Q9SmkaT6nzXVWdHIZmD6Ed SM2nATJlTiw2IMX2WUD0BIQ yBHGgZ7InAG4sXCMkvMNeIE v9l0zksNxeKLZdQWH6p6nlK IlggaKxIW9hlh4pxEp6r2og nhOsMFPcDIUkcEZRVDObJ6P nbIziNk1svMv8cPkcQbiiKS V3Iwt9VV8zyr19exx7iRxmE BEpidygAeF8HFebRUNjizwg WBy0VQioQPXkhUS6OYXplDV aA8DrGMSaQM1xffe6AAE1RJ suUWKwUwA5BEHbuTNyXVWmr GpxNHsqj575JMS2IvJnPS1x D9Ziq1S7sR8djQCgWBQypFG qNzIuMGJptk7iwAZeQRkwe9 UfBVH4iwI5bZRvlDCiKTPjM mZ7ARfoBI7wto89VXXjYCG7 lf5leTDmgNmkamRzdZXwYFq xG6OfIBSin685SPHkP2WlNT Hgu8X3plVdNpYbMYDjlFQ5n fJ0VLKsLX5zdixso9tdJGej KOqfQCEfqpV0awC8GAWdmYB yA2LsxQ5hROIlIH4zcmgnf0 jfGAP4OVfkFEQvCOZ9RqJmD GHao4Geltt0HwXds7ZkcPFc PNljT89xy892SGYcayYiI0f wbGFpblxwbGFpblxmMFxmcz D7BBUqTKiotzspLOYsJOuqO 4rbByMpKBBkqOjhPTgut9Se XGYxXGZzMjJcdGFiXHRhYlx 3VGKhfZPqYZJgNnRzY7kdrg ulVzMSZFFyd4qoI8ltbNPIu HFaL7AfWJsvvbHuLHmgPHqo WqXvKJe2GU12UvTkKSFlih5 9 SYNOPTIC REPORT (test OVARY or FALLOPIAN TUBE code = 5765) or PRIMARY PERITONEUMOVARY OR FALLOPIAN TUBE OR PRIMARY PERITONEUM - All [id number] Edition - Protocol posted: 07/05/2021 SPECIMEN Procedure: Total hysterectomy and bilateral salpingo-oophorectomy Procedure: Omentectomy Procedure: Peritoneal tumor debulking Hysterectomy Type: Abdominal Specimen Integrity: Not applicable Uterus Integrity: Intact TUMOR Tumor Site: Primary peritoneum Tumor Size: Cannot be determined: Largest nodular area in the omentum measured ~ 5 cm Histologic Type: High grade serous carcinoma Ovarian Surface Involvement: Present, right and left Fallopian Tube Surface Involvement: Present, right and left Other Tissue / Organ Involvement: Right ovary Other Tissue / Organ Involvement: Left ovary Other Tissue / Organ Involvement: Right fallopian tube Other Tissue / Organ Involvement: Left fallopian tube Other Tissue / Organ Involvement: Pelvic peritoneum Other Tissue / Organ Involvement: Omentum Other Tissue / Organ Involvement: Uterine serosa, pericolonic tissue, appendiceal serosa and mesoappendix Largest Extrapelvic Peritoneal Focus: Macroscopic (greater than 2 cm): Omentum Peritoneal / Ascitic Fluid Involvement: Not submitted / unknown Chemotherapy Response Score (CRS): CRS1 (no definite or minimal response) REGIONAL LYMPH NODES Regional Lymph Node Status: : Tumor present in regional lymph node(s) Number of Nodes with Metastasis Greater than 10 mm: 0 Number of Nodes with Metastasis 10 mm or Less (excluding isolated tumor cells): 1 Emery Site(s) with Tumor: Pericolonic Size of Largest Emery Metastatic Deposit: Less than: 5 mm Number of Lymph Nodes Examined: 3 Emery Site(s) Examined: Pelvic, NOS Emery Site(s) Examined: Pericolonic DISTANT METASTASIS PATHOLOGIC STAGE CLASSIFICATION (pTNM, AJCC 8th Edition) Reporting of pT, pN, and (when applicable) pM categories is based on information available to the pathologist at the time the report is issued. As per the AJCC (Chapter 1, 8th Ed.) it is the managing physician s responsibility to establish the final pathologic stage based upon all pertinent information, including but potentially not limited to this pathology report. TNM Descriptors: y (post-treatment) pT Category: pT3c pN Category: pN1a pM Category: pM1a CPT Code(s) (test code [id number] = 3357) lw6kuq2NciITtlTOiGYlmfG DnrvDspq52fSM1aF37EY6hX WXoRoP6IMFtoxJ1Lxa8WJQz VWWlbWDsT720l5pxe3sqdfC giJB1qHpkRKXitohzDhF0LW fzAIGgjtizERl7ZWdtMLGea YO4TQSgoSItC1RdAVXpXG7g ryx4WBI0VGwbQRQeKtU1OOF agKNlCLFasRohUPkbo257ZK Z7DfBsGHSyscDfkCgbtJ4qW zAmBDHDHqR6OFSxUQdvWZgl YkD5ZFl1OqGcBhI2PGQ4AOt fVZFiJk4cHZzxTOshyLIlPR XiQKv1JhW1KGYqesEGBqN9E TXzOJhhWDVhSB2vSSosCCw0 CJx1NwVyGhL1WSX1ZFC8Ibt gQFXrUi2vBHreSJPjwTZsHD geMYh6KbU7OTMvfj6= GROSS DESCRIPTION e8ovoSUzPEXlhYA8RjJsFRY (test code = [id number] [id number]) YcsjVgbm45bGB2lS97JY3hQ QYqHiQ8CYPhehS6Rja0RVDq WDLhgEYhV942h6vvm1ltvrD exWX7YCOkTSNtX1HaYB7hCP GbiQDnZ76yiLBxEXO2OIZcB EUieTVrWEYbQFH5GNOjfSQn H4btYFReSL9yusfwYEdqLKu uRJThjQQ4DDEirVXuM2PvBT ReLVpbDIFkzdg6XkOkDt7cl FHsyHsfOOyhSJGuv6jxMKDc nIEqCOJ0KZbjfLGdDATyEQY yAVg5JEUjCAolnGOwKV9dhS jdXyuxpEvwy4PcnLUgOFhvL MEkBUNlZTfzIORrC5IMSZIv YzA8QtL7XFLdMAd7URb6HZ3 CPqBxSSIkUDA4DkNmRMZzSU k3UCxaGI3NMYM0SqR3ALf3Y eD1RFRlQKMeDKBoCgEbXUQm UMntXjVFnejofKMhMG5aoKt wbGFpblxmczIwIEEuIFNvZn MuXTrcy6BmIZVZlOdlbj1fq IKxYWTyVtKfEK1tUDZcL7Gz dmVkIGZyZXNoIGZvciBpbnR xDM3yUTOjiZa0EQImt26aaM u8MNAii50ijWUqMHgcBJN1i PWlGBLskNjkikTbtrBtMC3b MJGbV7Bwv0Mjx95yodJpMtY eWMKdYCPxh36uoEP0tOBfgF JiDA49qHZbFuFqfsQsZJSls e9scE6sVLCyAXS8FA2rJTMt lVHkTEBlNhZ7bOEswDGfn6e 3rJPeGGbbdDQ7ER1caegip4 QvYkYpRCNfjyXlbqXmc8moZ K9dNDLdBPOooCKzTCctGBZ8 Wj3mpYFgEREhesRkkyEbvVG vp3CoEsDmoaJoMMZrWPf8h4 ftPPseEBEff2HxaJJnRESKI LUaWdfoYDWylRHsUYtAu1dj vXuwf6EqkAQuQRmuESWewNZ hNEsatH9hYuWyg7xhxYt9LJ rctnQ4OUGdlv60WVblVZPwT 6FeC2EpNWrmKXA8YDXhIlSf ITJiCC4LUdWdMDoHUIogZpL 3VrU5QXd5WXOKMjQhRlExMz fjQKumBIGqCCw7ZJd3PNsLT eA5XQa3Okp2HJUtSMLjNTrd LSb8MYYqJUrrnSNoDTQiBPJ fYLoqMTxwG83gMjHmLOUOIo LXj4K0GRYig9Q9XUfaP6EbZ XIuXHBhclxmczIwIEIuICBS HUSpcSYfUWFgmfAdm1WpGGh pbiBsYWJlbGVkIHdpdGggcG X1rKIdoDpoPS4jwZCxASGrI 0Jjw8jwvtBtbP6uQEByLE4c WWJin4G8LMQou7J4KWqtd5V oZXIiIGFyZSAyIHllbGxvdy YvBBI8iMHgxXIqtHIjn5Rfo 27impV2zFZhHGUwtRBnhmon NXRkfTR8CfLtoTDlJCUqDQV uPr46SBveQLR5IKQuF63eZE ZWdNXvg1SbC3unRC0ggXDia 4ZnkHLkdWkqt8CbuIsutmWl JOPiURYnr3MxQYuuHVMtKBC ey8PhpRAru0PebYEgCBnybM 43VDUnpWUij0QjFUQhb06tE ZXey5BkjIMzQB7gDGEvGGGd CEljhJlrS4N9kSVdzP6fVHW oZXJlIGlzIGFuIGFyZWEgd2 g9lPFgXQ1bJGXpLYQxWJSpE BToIT8rNDBgNUHsoEVdneko QRZ9CSDoUAI8NAHsD21xWOJ QmXJfO3X2HWL2rzQnQ2Gjq8 YwbFmnHN2dDKNsRBNeFBEqJ BXrqAUmjCA0cvXjUSFjNnTg HoV0nJcqMPHaRGXpBD9mCM5 iVQ1kQX22eEDhXGcna1hhxq OxUUQqZYwkCD91iFXqGGDfE FKVWZNnREOgizWnwYg6MKTq ANN7eQ2znlTmuvIjq5RobBo 9oLPpCZHwYJAgcHgyb6YnQS SzcfroEHAzA9FvfBpkswQxf 9FlLhonAVGbDmOoVpW9OSOv yXWpk3AtgMU7bMMpSRLsW1Q tz02kFA6bYL8hIQ91sO2zDM DawXvoW9SqSGLfooFgZOZwU UX8JVsedWKrQXL2JETaPUau PpVmxcAwKU06FFYgqxIfl3U agEaraeDsa8Svii2idPtmym ZekdVhYEGjsNwnO1EmNWJrd tDfSKWbJWK2RHjqsDBiEBKj Tf8JKzS4AYVoLTf3iL6gTZr kszGcifCgDI51SQCcjqKae3 KyrJzoceEaf0Wlj95bkqA1i AimXJSlWZLwvaIlNWRhF8Uv b3B6sRPzEYJsronwHRLdBqQ daTKrTNTkctixGNBrP4JjR0 KuwjNjkNEjWBHvrdQgm7mfU QB7YQDnmSBihSSdFuFoYmps KXX6j9abADGboMLkJNW0AJk caWQgNTEwMDIgXFxkYiBPVl IzRfSnMtK5XVicLCTfQMj4W KggD0JCBJHyPUR1MTH4XmRk JgN0QKi1YJVZPl8zVXH8VKP 6ISJvCOX5PaD4VDlwcRRwMB xcZmwgXFxmIEFyaWFsIFxcb wR8YTBwLdUaAl4nL74nzPCE wXAviTTrPA84tXLrPqroSHQ lOzSaEHatKdXeXj7jZqDfMT k9NUHswZ7mJw8etPFeqV1vL NvxZuWrHKSwe1k2sCW2vWFl wYX3dOFagOzeYX4xwZClFYM tX3Hdo7xkriSjeY5xZKGoZP 9vDVNmb4Q2RFLgz8P1SAunr 3RoZXIiIGlzIGEgdGFuLXBp agzuwX95KQW4NZZcsEJsCFy 3YPv1BpHoW59ubS3kuYNpF1 JzUOOkUXIhJT9jcQ0jFQWdF CBjbSBpbiBkaWFtZXRlcikg r5x0jZHoEVBiKlC7CJGzVRP 1ZKLbYYAdcPPmfVNkN4xjMV RiFVOnWUSkKC6neWjhNL1bT KrvARVohr4cPZDmemL6KI1v uXyfosNfbzFlk41xd0BsDRs hdXobnXYbhMofm1IwyQD7VA 3yz5oqeYDogo4atMdwesVsM N7liI1uISZsj38fiQArhvK7 bIDaPLZaTM6oQF6dTSfcADv kQDB9LZI2FZYyjOBwu7nyxb 4gIFRoZSBhcHBlbmRpeCBpc yJrFVXlNHfkyOXfOCK8mF7d VMYhfF9vmuW3CSLjKSSykH3 lPO51TMNuH9ZtHG2zcFMlhU LdNWI0iIGwRZjkPsL7jNCye Cffq5K8XAPsIYCqVN1avLqe d0ApeZdsJPYlzACxIOw0ZhH rNUkrVPl9wMGwTPmuKKJupL G4NRCeSKPuEH58DRIpTuPlC RtiPTjazDgtvFllM0kqPJBh UBnrKRPiYjDjlX4bUmIdsuZ kNX75MTEbavEnf5BuiQrhdv HfHONjZOK2Kb8pzQTpNK8zl RXwFDYnw1BrgeQ5MDEjIRIh m5YkFB4nHINgCUHreKVbzN6 czq9muHIkROVbvjOZjgbpX8 0zUFxahHlmMIPNkyWrT8Zie EXcwFmcVNricDBiI7rpQHOz iuyeEDSjR7PyfZoszvCqq0L hUtdhONEsBnO5UWAmj3wetO DxRE7lzydyduKyslHrFAVhG UXoBOFhsUFrR4EkHON1eLQl XWWjVPBhW2IddBWzGJMzLqB SAYYwSJQsryIbeWs4WITppm 4jddDkVDG8uQ3pgiI4miTvf mNsdWRlIGFyZWFzIHdpdGgg zx0ihWcqh4acTQUetTOjDBL fUvQiC7FeEYwQr9bfkQtjb7 VjdGVuZFxwYXJccGFyZFxzb H6xPaPjr9uehGc2OAiobwU6 EPYzfe60UKccMOCbD5AvT9D lOHikIPN0QPTrTeEtTXRqLC 2KWsKeRXhDWIkbOkH2TbH7M Am7VCIMBvJpGaJgQwcpJHiy NiooUYw8ODv1PZkQKoC9PDm 8Ihg8SRaxCCCoNFqwYIw9UM IgXFxmbCBcXGYgQXJpYWwgX BzqV39zUqUaUFOQVlIAm2V4 SGIqq9K7FQnvC4RjQUArDDJ hclxmczIwIEQuICBSZWNlaX SgUIRilsCbe4BeFMadxvCfY URpdFLeHGppkJsnjTS1rRFf pRrzII9cxMTrKNWaN6Uyd3t qhaLrgS8kWTYsJH0dHZSnx6 W7SYBim3L5PAfij3WpWCNkY SZyZOUbJOOtzb7zlN2sVTJo AWNpd0vyFBPgu0F4GMVvxdB exIEmsWYtqVDos1McbT4iJH NrEwV5BKIxQmW6DWZtNbWtb rSzAP1uUAmeMG8bRXsdNG1t CVXxOoJeF7BuN0apIC3vdPY zh4RcgWn9xWNnLMeyVMJzuB 6lcU3fK8Vyl5G7jXNxJIGdg 9ltrAbpq3TscBPzBQlpVNFd bBJuSYpprF9vWfLav3kfbBv 2VAoeogQ7WCAjdk30UOorIQ CgD9RqU1OmQSmeMTN6GZLaD lXbFLCcYN2AEfWvBStUIRyi IgB6MtG6LHk0WSLZJnUqEyN tOevyQLa0QOslZWp7AHl0UG yYYkY1BQy6Ncq1MsdbHESqQ GxuOSv3CKPqEAhisFKjGEEn FLIvMJnkROeyQ84oIeSvIMN JEpKOkRDvsWDwqo1RNKI3qA guXHBhclxmczIwIEUuICBSZ YQilGLsWTMyqiZie1AyMScy biBsYWJlbGVkIHdpdGggcGF 0jTLcdMomXM2zdULjIVSsQ5 Qkv1ddudGmiE6pDMJwAH9yG RX8yWEayXIdb5g9cWNvNRL3 aXgiIGlzIGEgaHlzdGVyZWN 9v145UIKyDUJcj1zuB3StcV zrr7SjQ9eyED2syPPnb6Jqq E3rOUY3WJxuKGPfYNN4KEIi H30fVFy8f5zpiLkncq2vDJV sB0mhf3UhYS4pf3onoPRcLQ MqLEJggygiTFHykE3cpRQyJ QUfqKy3HZPgaD02UkwzqM4v GMkgjuUpYSqfSOF8sIEfsSW eXCKip0MkGInvwFogy6hoLY GxZHMkTAN6kC7iRG7mBQP8w jXdSUG6AUIlRVqfTUpbhxk0 aCBhbmQgNSBjbSBpbiBkaWF uLPLocmN1nIUrXIQ2eOPmzI EwKV0np8KqoPBqbF8bPPMtX SBtZXNlbnRlcnkgZGlzcGxh bSXpzMXjeQhbeKLoy7UrbNN nsfVxQURiob28jAy9PFClw1 L7uLYsPnHdIDdgx7Wrys1om WxlcyBhcmUgYWxzbyBwcmVz UQ39XS7iRSUrQLJkHPRzb1S us9XmqNuaUDNyg1ChUiTpGO feNHCgwr4lFEFyajU3TY4jy BemsnTssfNjxMIcOJ8idN2i vsOgbCOvoO6maDlvw2z5vFU yxpAplKLxQOYphmrmh5KqbJ GdBy6dSPTjg18nZdBsAUtfI FFob7MuhALyg8B7wN3zNA1b ZCWuWWWfg1kssYJoeaDbkUF wD8pdCEY5iuJ2nFTssV3cqK LapW6xJSX8kuZsN6Fvi3Dll XwoXNE2LXD6grP2vCRuMOYh bWUgdmlzdWFsaXplZCBhZGh ac7pxvkJkRPCMqCEqRj43EL jneEOni3AfxeMlTLQbVAKmk 8NhXOofEVB1bnDwujUcH0Fw MH4qAtPeEQxblUK1BSUbFFi iWYKrt68tbhOea5KjyPOyGa J8gEVrAmHsUIGjAQLuUHBqq HGjf2JhGVhzeBzndOZruDUr SSWtvehnI40zg22tMnJqy0l kerFyngHvs48gheOonQc7BW jfHNEbDNBcCSP4gY5wQNqji GggZmxhdHRlbmluZyBpbiB0 yNKnk5grdU1eNTLmv5ruzs7 vSL3eVIkoo7ygquYgDWNfVF uqPX85eEObXEWxuS8zoSqtL CWlbK7lrTFcjWTqx3SeLfLb RHVlIHRvIHRoZSBleHRlbnN edsPiJLSgVCXtjgYrCL0rQJ IuQRY6oAYtwRActP2bfTwoR BPrX1V8zJE1uNNffKEsoTSy pjVrwFClTMBzAZW4xX7nPSe lUWZzZVSeTRA9hiXaPHJck1 Lwh7OlAW9ofNVqODJohoXRy VBvyXLpjlVqAG7gUJQ9ynHo DOvsZaWffXQhQy1DNZxiEa9 qPHWwDDyTEJGqFVlyQAY2Zv LqO63vZSNmMSDbSNjntIzkV U4dDTF0NRSrUDLcG9Fkrfg6 RK3gBNG3xiahRtWpWbQxxNW xOqEfN52bc1r7hOKxXBMhC2 8mx6gfoLddr4ZrV0EsfzgoD Ianl1ErMRHzLYCeqPCsW9tf ZCBiaWxhdGVyYWwgYWRuZXh wItWJmTSeB44yc19zpDQzTZ feGAQ7zXvjQYZ3VPWgKGTzf M1tvAwuXWU0QFL2evPfmfK6 mGBfdV5loBVadH9wIQR2toK fJ3BaSRNHlDZtHX01KVKwd0 IgdXRlcnVzIGhhcyBhbiBhd FAeE6doEPBntGAkBFDlUYCx fyb6w52dFHdzaWegg2FuGEE oVJQdpGSiaPIgJNHia2ofXP Jys5Vdb0Cij8x7lTOogPo3o EHjLIU7UC0rt9ygbDUuvm9i qZzbox1gHUYmeYSpuQBjrDP kejZ5uPQhgyQeEIBdUTB3MC QcdEH3OLZyevW0ghZcmOUta HY7TFKuuHKqNQDskykxf0Yr d0NfNA2dXVLfMPCipmNrpxx wpqM5hYGuoDXrSXCTtZAeyH RlcnVzIGlzIGJpdmFsdmVkI HrwuN6rKJ96YOTus6RzPH5a OCVth9TbamhcicPzJSa0VWF zkU2oHKlpvVkauSCkQNPzIQ U0JZMeRaEtmAUtfSGrKXMjb mkic0DdlUDmoDO8l9D7LDCz dXRlcmluZSBjYXZpdHkuIEE jiBXqK6BpaHPzYSbzk3VzMP ClbK38kmHqzBKnzRXgWXOhG DMgeCAyLjUgeCAyIGNtIGlz TUvwFP51bDAbDZLagJ9xpXp xWTHlE6m9RCZ9WJE4zlHyuO D0f5C3aN7yXQJdXQArq0R4E UTfp1KamGIdzlWxXwSAfYXz dXRlcmluZSBjYXZpdHkgaXM gdGFuLXdoaXRlIHdpdGggbX FboFrqfETheYJcBP2sISObZ EGgtOusa8IsvZ93yKV4iJKv J6Q6wRP8RlOWwOMzSADrpxQ mUOOjJpY1RAPpG50oZBIwxv H5uQh8LESczVLao5WiZOChg 6SuNfrrCXHiDTNbV3HqJJFc ACXfi3l3rEUbvHGlF8obDEH 6fwL5yMHiz6DeWOYlp0VvwK 6ieCzthqUaIeM4lVNhAW3la 15urVHuoA2zFYIuFYXekeXx bGT1wxm0pJQwgwRtMKJmuZw ltiugaWRnhRfkKB2oRWsrAM SqdMHwbY0tVBE9ROV4ylCte fRoMVK5vI3tJVDvvN5nSCrr cGxheSBhIDEuOCBjbSBteW9 tZXRyaXVtLlxwYXJccGFyIF OeYEIpYKI4BAX5bPGqpNIlP TLthaH3PADfl36akAZ0dtRw SjDwVGWmdEKbCtKwB11vJvg hGuLmVSJoGASnPBdyn1IaWO 4gdHViZSBhbmQgYSAzLjgge OJoGvKcbRDxQQRuBT84LNA6 LiAgVGhlIGZhbGxvcGlhbiB 6tVIjMRCqmn0uYWOnavQ6WF 9whXgwbmW6gMOiKU76yMXty OmvIQNvrj71vQh6LHUzt1C0 bGVzLiBJdCBpcyBzZXJpYWx wiWOiOFG4wO7rVYMuqN4kKF ahmEpfgDSfDWYdvgJatW70P Ua3mPSrHuJpISieUUyqPaXj l4MlanhuxGLdb9PgcKCen8t nfKAkNQFwNPJ1sKYpCKSejD FuIHdoaXRlIGFwcGVhcmFuY 1ZcHMd6NAmvAZKiy6WnkCJb EJQpRAXha8UiWRyiCQE0CO4 muY1nmIAwjF96BZI9sXGgrV JmYWNlIHdpdGggbXVsdGlwb PJpmYSzQKo0iAPjaEkth5cc wAOxHSvxxGTuHSdmv4mrejI bPBDIwzOxDQGaymk3vNMsPN SrtyG4ksYopMNtzM1dsOOsx WAdpdSgAgqnCG5xuVXxRVpx dpHbXMccSPEdG8w5DYSdrjM 6SHRgpkYjs0Jdn5AkbI4bLN JqwlQbJnYMyXFkdbRmh4XhF CBlbWJlZGRlZCBpbiBhZGhl a6rgqeZmFY1wPSHhvmr5i56 hxQ6oUA8vLPSahzOsm5MaQV 8qOWDfIRD1uKRntMUnNPZzQ JE6PMUaCJUrOEMghTbbiCys weW8hYFyBMDiIWJicgPntoL ooGOeHPNngTStbkpgNU95RD dmYHJxgJUnVZ6jTJHiVVPuS TJuTHEswR9tBSVsRWmeR9Qe ZF29mv8zVDIjrfjyaBLrRYC 8nK4uqjZmawGbtAFfQj1jyL DpHBLoNCOvr1dzpBexHJ59Z PHvXL5ncPJfNB2deLnwLBKv rtFniQNaRZKokXO0jX1rXPE nZXJkBHApSLzua1yigyLcAG TxzQhsfYtbwcQ5zPQoTXk6q YWnHWGvBMNbe6meoQ1iYLBr BUPhlWHzn5ArIwTiQOMlOkJ 4mKIfc2KajxlzzQTbxORaTV Ycjrpth5z2dHTgZIiihRR1L Q6iisgfV6J5DFT4wpNaN1Fl MW5jIS6nYNiqAF93oNGwWOC nEFNol3PwcKVbeHQ9BJIyVw LeILqlHKWgjBqxvXewamC0q CXyETWogYPjurEmV44gkj6h wGJbPMKvplG1tRWtKWMvPAE yq88pKNIyLAW3qICjKrepAs HwZDLonbVir8FjX5Tqf8Qtj SBpZGVudGlmaWFibGUuICBU hKNvr6Ykg8KlTXwkJJLqrz5 pnX0rIZqcgVstkHTbRFawtV JzXU8cHZHbSTSwTZ0iMHSoY AKauQ0vebGiwoUiiY5jt4gg nM4xDPSipgIFOFZgGKAdizB eaAv7FYAhLHH9sD2trmNlrr Xuj0ExkFw4uYYlDyFRbI46t 5cpZMUmukPjppKxaPXwKT9s e1MmrPjrOXFaJVLftIHkOnI bgMFyWTIhccMDigaxO68qJS afNYdhIDAzL4EbdiejUOFtb 3GqlEQtf6pympqyBU9vapln qrcykY7dYHPpmXJqxGGveDf mIRtxI24cn04zPqIuYGPfmE 5ccGFyIEdyZWVuLWFudGVya N9gEVS6YWG3w3zwgH3xYSWm SATzMRQdx1LhbbmpmrEoEOT 2bZbksWByIGUzbfSWBIS5mD 7xBLLuYNF1ZBivqqOuOHVvc CIyyNhhQQgaB73vw25qAnQh FMTjoL7eyMdfULWMDd3qoCG 0ZXdzN93mh42kKwSaGCChlO 6miGZrAUZoLBVshHAmf4Eap DH5cLQeHHPgD0Mcg21xk0Hx i3zglH9yRDXkq7ansznqgH5 aCHX1CMS5GRU9iIkbiEbdO7 vvZPRhIZXfC2Div56dc0HgW M92UQHkc5AmkOAolwDtEESa exNKOMEvXBRoHKP3tGvljQn oN3diVJSjOGWxQ8Bfo23ia8 VuzU6lnUNxsD3iUQQ4UQJ3o hT1vGTsHFIrvIOtOD39ERFq k4MzDKTjpvKSEIZgDYU9CAY cLUk5tZ8iXOlmCrLtrK63rD qfh78ac1Lao2XqeZukimNdZ dMba3P4LEAsv3VkdUYtlfVd IHdpdGggYWRoZXJlbnQgYm9 3SLoeuFHcMNGxKb5ySHW4tm J1hIJ2TLGijD6yeQYuyA0sq P7dbBKbzI6cRIL7BIC3a8aw NGQtKDN6XANgtSFiv8ZrcCE 3vVCwLRRvW0Mrh67pn3JbKE 26IRNyh1KyI8Qbbjh9WMugn bMjRST8RMAdtRGnu9VylNI2 yVZuBXFmW4Dib98uk5JevJ3 jzVJvhF8fFZLcevVwgXctXP DdVAWeMDMzzSGol3FzyJL8s LNaMKVvV2Vob63zUD2nHWnl ChJaFqKisY4bcNGjMJR4OrP sDH3aZQOggNCdaPJcTpzaBL L7PCZbyOcdNZQEAfDoIAGeU OlpYlAuf3NiqaugJexpPQB3 DSFjnZBcEZKxBv1xWK6zNYH yYSZ3EU3is4mbjmekVMQbKU GsUAixlnEjMTX1GOSwA5r2I EWuiVyesFmlwoZ6qIVsMKWg VGXfa0MypXUgYRGknA3rhyo oOIbdfdItNFP7LUPmHxNgaT dodCBvdmFyeSBzZXJpYWxse TZiDRA4hQ1jQTCdOJFiJC0X EfUcDE4tPDGVJfKgQmZpCLS pQAXureWaS2JxpPCtz4MjnK nfcfRvQQMkzvYHZaAoKMP8Z RMxe4JdBxhdZTPvcHRcjI5n fgQxYPAaGRGeJ8n7AK64RCV 4PDOdvrJWRdXhFWA7LIEubi 53nRl9IDYfg9Q6wSLaNG6mF VAnzin0j18lmJ8ytMBiFMPi PN6ah8O2aVFuwR8jwMWtpTM inyG6wEZieHCrHES0UJ6HPC HgDbxbPYHyfwDuMOJjHMI5g I0iZFiizDgxgVJrGFbckIDx DE6vELEhIGLgeZUqSPBcijL HWEzsZWAbV9MxU7LohwEdaS DtLNLyfyDvj8noJED2LDOvu CCdqLAjHiBjBlsmCCZ2j6qg YLNxpFBvNLC0KPovyBKqRJI wMDIgXFxkYiBPVlIgIiBaUj Z8TFotFKKnQJz4EYfrN2UYB DOlTGE2XIH7YLHpSjO8OBf6 AUVADm4wCVR7ATZ9Ejy7IEH 0HuB3GRcmgYIrGXetIxnnGA szWOFiqVGdFSochhU5QUVxS rKbEk1lRBOqusMsAOotQ0Sm unh7YogcYLUiVnPsGUajEmQ yGl2wLbDuHCz7SQJevC7wUl 0ipBCaiO8hzCPbBAiuJBI6r ALuVJGuuHwobtUisyAxMJ1u NARkW1Oca6Ppd20hgkBaOtX rVPUwDVYcTjHqM9nia2KvSL idW1EeYZ89EgRqvwTzIRxhm KB6WCtlWB78QATiCBShtw6u dW3yRSLtfLD8jPZnDGErfGn xC3Qwi6Kmq60jgTT3nFIklV Zhe8i3dBTxibNjnHHtN1shN MCocTHuzZAnOjuoha07fxJw vVGlCSVyOgC4jPPnzTGfrNF rx3ZjlO5fJCVoQbS8CYHoHr 0jCEBoDWGwgJSiun7tyGHng XYwHMXxTCciGWYdx056hJZ2 dAJgYR7wEBbob5KknQmzoJD sstHhRzbdNpgjEU3pIDVtRP UaDJITaOEoIHy8BFErRAlxa 3VyZmFjZSBpcyBpbmtlZCBh uzMso3UeU9cbEO7hzEVol1D diPCqzNetu1DwnZyniwTxFD XuNLVyy7ZcQByaFEP8DFolw 6xfIyA7dQenC2R9HGK0taDv O0QhWG8lNWCxbOHqNKxgoTT aIFHqWvRdhXBmnj9veBtpJX 7dOBL9xpgwBoF8MqKdyIYkX lZpjNZfDmPhD65kTWCPGGZz NMZpzrJlrJs6UZEkUTT3iO4 kfwLizdDap0AabSr3rOSnTn RhiMFhNNTrirIAjdniC70cQ OcynRkfKIUFsKZtVCQ3dCSd ymUlCKE2mkQiC5QwzUWmOQC xraBIVRF9sW5hONAzXCJ3KB GvaeFRKM4YTYquwiEetfUtH S41FTCwdzFjc4BalQsauwRt n4BrkItpf4DjLKGrFGxtX1a 0XWYfaMttHDOrjy99fRk6YD Nbs6W7cEJknWEzDXB1YsETS DRctGhsrpEwARKufSQez7Zh nNB6jWQkDUGyP8Fcg27wDP7 uZN9aSAD2ZQXniAXwf0QvES Cue9J0GVzfLAFoD6EuG7Mtk uQhmLKjYLMmrnIxu9lwVVR3 XHNsbXVsdDBcZnMxNlxwYXJ 1a4cvGTCpxFMaGIA6BSlvpH QgNTEwMDIgXFxkYiBPVlIgI bRoKkT1RYfeVEKcJCr8MUas X3QCXHSkGLX1SPZaCZm3XxH 5JEe8LCVZJc4vPZF1EgN0XC viQJE3XuU4MZvbfRQhUBviX mwgXFxmIEFyaWFsIFxcbmN9 WNIsQuFpA6NdQUewYGVuNrF zGNolk4RzXWCYmItwpg0feK MnHBDgHkSuRa4wLJWxL2Rpj tDjVAhkJKNvwe5mrQzmGHzw SfAyWJIbn5f5gPJmSKDsRB0 4L4BivfMpLMnqTURjQOOzwK 4vZO33uSQlgbKbatMtRmWgR yAxhWzml7UrFWXgsUfnsmGl YXJlIDIgdGFuLXBpbmsgdW5 rxbwdjmTdGDNfqV1hoTEbUN hpOD50tiIjTmQxt0kodbcsO NMnp6N9JGHrRBBmkCFehjuh Lh70IDclYQ88QCmvMJBnraY vAV37OOjiAD94SNtaAPKdjI 4hYZAlEQFueYIlz0DrkVNtl CZoYOTnbkjwr3y3jZLruhVx XRFtk70tQsJyCi7kiJTom9C zIGFyZSBpZGVudGlmaWVkLi LqO0FeR8huCV3hzFMcs1Asx Iu6cMOsHBxwGCUldK8lcP0g Y3Bgu8U6fJBxJmEnQdIlSYP qqvewMNWzRbE3ZLZidHIpXZ C2PD3wyZcfJNOzZ0UxT0Hrf oK4HBEnon4= INTRAOPERATIVE p4dseFXkWQExbBPWJCNaQwy CONSULTATION (test vfhXpIQHhuUMgS2RoyuvnDT code = [id number]) mgBB5pXW0gjMzcbTTyuNCdX U9EQLDnUcFmUNCviXKefqCg OcJgSJYvrAMexEV3BMJlGJ2 eulxeHWbyLQslZKCnrjS8MP BphULgO2QyRMCeFK8gbgbjX WZ6MBifdF3tsfYWJrrnUq4z dHRibHtcZjFcZmNoYXJzZXQ gGEWuvEokWVInSYb8dQ5VVi qsOER0TDDOAlsxCUSmUL5Lf 5neKHEldLHsOQF2EBtpjSDq AABtGPSnMTw0ZCYtPDwwkKK lPP8lhCoxAvnqdUrmz3KikN BcXGlkIDUxMDAyIFxcZGIgI X5OFdDwKSgZDTtmUxT3HoU1 EGn4THTGUgOtJdHfLyopOHW 1NrzkCNh8APn1CGhFViN7UF dgOoVqTiXdAHSnUUkaFDm5D DIgXFxmIEFyaWFsIFxcZmwg QGjkU63tgFpdmL1vHW3vN42 qkNRInXMqnATuQV35hAZrSw ezQZBgMJprEDInI15cc7ZAd 0NaMB9NALq2npSpnsyikZ5p NZHvkvFjFPhieWJfJ8fzKdU gNJRFF7GaUtTuVIhANHcDCZ dNLCBSSUdIVCwgUEVSSVRPT qCJFEOZW4WQEGBoWFUCA2kN ZW3WUowtyF2uEYOeZYLkYOE oJUOcY5SQZPrOGR6TIqARWI YqZa8LPKIETPzEN1HBBOFvH 9BkV8WLJ0hTB63QHfTpXK6W RSBUSVNTVUUgUkVRVUVTVEV EXHBhciANClxwYXIgDQpSZX X4bTEiJKMtcK4qxBJjUQPjQ CEuYgVCh9O8VLuhwnQvlJI7 WeYuLQCZHHpbeIgurY4qQOF zR68tq4HAz1GfLSYxZSqru5 gbdDjao7QcaHVaICwmLXMuz YSrXTxvqZ0pJvVvc5hqzHm9 RGaflxV4PKZlkr5USexvtR6 oRxBby3rvkFl3DUGZRudvme V3h2pnhDejp1PsuMDmRU4GO n0= MICROSCOPIC u9einRIsNKEazXT4WcXoLMX DESCRIPTION (test code hm1eju8LvsXWwhYGhDOhueS = 3371) IxoyEerh57iPZ7qS67OO1tY PQlEiH3YIAmxzK5Abw0RPFk SZNcbSHpN457g7kik4wlsoK klSX3oOdxIJVsvjdsZiR1HZ psGTXyexfrOZs2VBljFVYmy AO4POEzwSQnT8WmWIScOO3z ejc3WBY5ITnqXSLuYbO9MWT amJKsFSAwaYzmDZrvk171YY B6XyZrKIQogfVjiNlikH7eX cBaITOTWPSeo6WpAZLmTYGc clxwYXJkXHBhcn0= SPECIAL STUDIES (test b7xjyZKjJSWqvGQ4DzXmPGY code = 3376) oz9ywe1EreHHpjLWnWVifuJ CzvuFefy53nYI4hJ88RE6iM YBbJsP7MDTxmaW3Rza6PBRm FLDzpJHpK952KZHaPQNgzCz bdrl6dB47LKGfnY6klVJyJG eiohSpFKgstaKbfrYpTvh8H LT6nAsoQCYmhgehPpM5OToc GUGokdekOLw5GScxXKXdxME 9EAWyvHGkX7CtRUHqMY1bex j8DQJ2XCncHHHaRbX1DQUfb BPdOPPjlYkdYUaur870ZAL2 LdKmPJUdkpFqjUjllI7zPwN sMUstLzOuAV2uH5DtJLIvkl EwqSWuTTaifCFby9A5RQmwf oRvdYqelBkfgSKtKu5itURp k1LkaPV9FCY9STOnNhPyTDS jnM4ngGOtGQdkZVIxDB4cMA wvYIC3nW8bOWFkcSyuCWZwY URoh7PupVc6MFIhQeALLUfw UEGrnqMeO2WiZVkhJQ7jXWI yk6foHWZngsObsgPfvEXqSO 12ISNacILhHSLjkN5lImGjy GFyXGZzMThccGFyXGZzMjBc T6IxHJRmc5TuDOH4SPSlPJI eAJA7ZYYpSFL8tV0mCGCffK m8eADkvTW2SKUwieKrzpVbb Dpsvfivn1E2NQqegy9zbCDs XHBhcmRcZjFcZnMxOFxjZjF ccGFyIFRoZSBpbnRlcnByZX OcaSepwhZnSgE5dQxaERMuf 1TzoE3bnYAjNWKujLwwJAJn VQFfJoDneQ82bq8onYH4s5U vOH7gl7RjiRFqmoStiSMlbW JoHVA4CRtvlf4xbDVcMCXcf fTCh295ok9vUSRnoMNuheDP fSScqT9qIAelUUfaRCyunUU kNJnky3xtBRXno6s6tMHkFC HjzbQsi1wmIRrcfdZnKHVcu EAkyOSyZBSey04iGAytnTdu kXdrTJZtr3YtsYswk0QmOdE tOEptr6ZrB90wgLJcaMEocK qbGSBjdwUsDRDrf82zg6wiE GAnUqP0tYSzdRI5eSRepTEt q9PouMchMBMwb4rrMERrhi4 sexxrqZPxr7ZffW3wtcufQV mmlSCctjDiRDYsy8h4sYJnX NAkQIZsXSsjySn5QBBvv175 nl1gcjE4xPCtFPC3IVazEEX sZSBhcmUgZXZhbHVhdGVkXH OgmuFaLCIuwxANcY18ol1ok ZI8k1DyHF9pr7JxpED4ZWNl kargIPcmhXVuvPufCuI5ZIL ycPQlNr1nwRRoNKH3TBIyhJ rbobQDlJ0iYOHqQKg7EFJnO tOhYdzmdqMBWRShW7UsUUEp gzIrzbpwBXA5sQ0nr3y7XEu tLz4rOLQckjchl3mywjZcpU Ywx5ZbVRReouMjq8XiLTUym xUpjTQxZDSuvdXwzy8achKk GYUgWZWgW5GkusetjNfcnlM 3ZXJlIGRldGVybWluZWQuIE e4MZpiuqCmg8AuUdWdfnNyw TVlqkYaEC1gHRHzeHZxkxUu OQO7PONxMCEBZkCvZOQfr4R tUU0bFACzoSpeENGbsB7dw4 FmZPEqm35dFCSyTSLLNSHkw GFzIGRldGVybWluZWQgdGhh iXYyzRZyWMLyTYJcUG0oSMC ubfXcnRNzv1GznCMziwMge5 TyteTuGKBvSGW0LoNCvFDgo HDcrXYsinC7p6HcXFVgptDm bZmtjCTfsLXzaFUlo2Kfbc9 bXEWyz8nxaRtaQQ3tyZCoWX ByZWdhcmRlZCBhcyBpbnZlc 5AzT5C8uJ8sPCups4YsWc8z KJYwq6ClwpWeAaYSgIgkGSz cZq8dKBYaptpapHEwT7SduY lmaWVkIHVuZGVyIHRoZSBDb AtlnEReaGJABVBgutY3k0Z5 IBojqSDohyJcHB48POCwCL6 frDFmzIJka4XdWOn1WRRgH2 zHZL29PIceLMHhlMRdoPnbw GOyTQFkQHDgjqOjvw2wzUpr zLGss77ifYO1gLT1VRXmtT6 jZ9JtALzcPh7hSQAtzncaiH LfuApsLl9vvKXaxX== [facility] 12:53:55 Test Item Value Reference Range Interpretation Comments Case Report (test code Surgical Pathology = 104) Report Case: [id number] Authorizing Provider: Ronaldo Owens, Collected: 03/07/2022 09:04 AM Ordering Location: [facility] Received: 03/07/2022 09:10 AM SERVICES Pathologist: Kelly Adams MD Specimens: A) - Soft Tissue, Other, right diaphragm peritoneal nodule B) - Soft Tissue, Other, omentum C) - Soft Tissue, Other, appendix D) - Soft Tissue, Other, transverse colon mesenteric nodule E) - Uterus w/Cervix, uterus,cervix,rectosigm oid ,bilateral tubes and ovaries,bladder peritoneum and pelvic peritoneum F) - Uterus w/Cervix, falciform ligament G) - Soft Tissue, Other, procto donut rings x2 DIAGNOSIS (test code = [id number]) uZzEwMzNcZnRuYmpcdWMxIH tccnRmMVxlcGljOTYwMVxhb qIpTFIbpIQnI6BrbymkRZqq HZ3pHU1wyZnunEGkkJVbULV uWiPrl6qgi406oXNzn6gcXZ GYdcoflKd3lMrkL42ke0N2F xybS05ypRHaUKO0JCYiYSCl mSVbILEmPFL8RTIjqYIbK9c qWXVuGD3ixsimDCudNKcsGO PzgGV1EWFmsVAxQ8SvGXUwX LojNOKdzds1OvYiYj8dbOVc eTcyMFxwYXJkXHBsYWluXGZ aYeFsGI7dTBVLMPCJGnJRZI wgUklHSFQgRElBUEhSQUdNI G7NUOINXHxcNXoEWVMTN052 ITWkqye1JQJcMZRELLaQJPw SCZRBCYVRUg1JYlTKJGVGZI 8DCKTjP9mQQFAUF3KMUE9OK AZOUCUgY3PMQ3tNIHITZRtH TlNccGFyXHBhciBCLiBPTUV QSQYRXAYELXFDYGVNCU6FMF efuZWnJNExLfXsGJbPG9itR 7DNHWGjI0DIX8MFPVDWKgKT If7CBDVAWZTRCOHNWQ4BK99 QMX8DKsIAVVgVETDRY9LTOE 2BZ7dwSAKtnYItBHNjBKXJV FLHWToHIKSHJMRCHpPMA9XX CEt1YHFutlt9PUVwTWGUZUg RECdGMJAVBHOQYe8NUuICDN CWCJ0OLBYmBB7OH5kCXZ2XL SJUAKGRKYjBTSSPFHASKm2G WKbpZFKpXau5UgKuVVAKMwA nGWAQK2VIRINEUKmJTFBvdu atjCBroGCqFW6fTMMVEV8MF NLIVCroZRYIC9jWYEEWKUfX IXcVDPRSC9PeF5XZK0gWI54 BIFxwYXJccGFyIEQuIFRSQU 4ZOiOAX6KmM99RI72lQQ6JF 0KPGYNCGCRhFh4OUWlIRJTC UYQSH4vIMyhjkDHvOXJgRoE tIENBVVRFUklaRUQgVElTU1 RUHMpRCq7UCfGQOYWXPReQG 7yiN2ZJMLOpE4ELR3GYAZTX ZaWCVt6DFUtmNGKcTsk5NpZ pPQJNNDXQXMODGR9RD38VEZ 4BCsXGCPgFLIHWL2UDVD5ZW cUjhMPgWGPkVNdiKCNqHN0b VVRFUlVTLCBDRVJWSVgsIEJ AIOEKXEFDQAWQDYaJP4PQHA 2iFODUTARhNE5PVM4KDIDME ARkZHCFK1ZKQ2sYWR7EKQHU I8hVBjudEZAobeUYIVBMJHG WHLNOWlrGQ95QIW6fNLCTXH BEHtVYVIOKJQ1BTFIHQNYYY oRFBH8ODZGFUXhCAWwmRFaC GSRPDTPZZ51LNFAGTWvNKQP VBEyaQ2TCWDbUZ29fB82SBG 1LSRNIP52CWGTMKCOBQ7ZEY 01QBSEdWkVDEOZRLE8IVydd YXIgICAgICAgIEJJTEFURVJ BTCBPVkFSSUVTIEFORCBGQU dBA7HEOL2wWNWQCGKaaOWkH UEnJfHiHHfON6dyZ6GOZFVs Y9EKK7VUVPLVEhLAMc6LIWI FLUCPBEIKAF9QB38KRP5ZTy YMCMxFMGGBU7YIIT7QBzLvw JFjKZQoYwWuXKZlGZ2BW3pV WJ9OMFLQHj7NQNuaV5YKTpO QCAQhX1MaKpbNXEYFLjKFUU 9WQVJJRVMsIEZBTExPUElBT iBUVUJFUywgXHBhclxsaTcy MFxmaTBcbGluNzIwICAgUEV AXDUQXwWZOBtyL29MPEFWYW FZWXLgQOFNGZLZMTVMR5YJG LXYYBINBU3TK5fuDMHmkIyy XGxpbjAgICAgICAgIFVURVJ FTvMBXjQaW6AYGflAWRJrgz j5PLOoKNPAXOfVMPjFVFRAY MPSCk6EUhCJWWNQNB3YYAMj WR1GP1hNYK6LWPUJQKPRLfD eA5RMC5FWMHOHGKrtEJWbYi o1WiYgYBQUTFZUN4BOBOAFJ RRJJU3YW5pbOIFxEqdqZYSv XeQlOTOBNG4CMBWOYLTRVFK IUBnQXLwAGOQcYzGRJ8rZP4 VORCBPRiBBVFJPUEhJQyBFT kRPTUVUUklVTSBccGFyXHRh NcOyOD2RY10BYGGKZW5nM4g USCBMRUlPTVlPTUEgXHBhcl q6MFRyFNEYFgWAGBKTD8JKG EUgVVRFUklORSBDRVJWSVhc cGFyXHBhcmQgICAgICAgIFJ CN6VQO0tXZY6KIUDIR5zUCc juZTUdvBFfQU3dFJmGHT4WJ kTSWMAACXEWIVBjZ9HFJ9tE G33PJRaXIWzbOBLDVI8JPAS FD6UWLXVCPJIRTixEREMJQ8 5TXHBhclxmaTcyMCAgIElOV q3PFwaTIiHICQWUV75KN65J JqQPRHKXJDWuXS2OECIMSl4 GZNrpFWIYJKZAH11OUDDgvr AtIFVOUkVNQVJLQUJMRSBDT 4oYDtnUKW1UA50QQGvvRWVg SQPVLXVGA7XVZOdCHMATKcG YRp2QCJZCFtHGMfPoR9RtSV fVPSEcSOuQHOqiCq1FEZLxT LApDcazaRQpQLGgDOp7SPXd GCACOv9NKD8RUZZDU3hMZji LTK8DOnfTXtieYO6BU4dLMQ EaXjsvZYSBX3PcxALyURTqM wYkNXTYY2FIZRKRC4fGHzhJ MX0YPdqEQhehUkOUHFJPDuF jEn0QILHSAA6BLPCbmsJnDG AgICAgQkxBRERFUiBBTkQgU FTAXxpMLXJACfeBM36GSS2m nNPsMBWmMfVjSIcSI8xaB0D FYCVxA2TLV2SPULYZTgNOVt 3KNHFBYPHQVSPVCZ9CC71RW X9KDbQKMQmBKXGQT3IVOS1N Z4emEEGyjHYfBLDfNRZLBSE TCa6HVPCAHIcORYWLUNfgUL yKYTTRG175KNAxphu0GHYcP MQNCTsASByAFDKGFWWRUj3O YoWABJQLPZ2DYYRnBKTaphq bMRLaYo9lK50TK00xCPJHBk VUIFJJTkdTIFgyLCBFWENJU 0lPTjpccGFyXHRhYiAtIFVO PxEFBTNKSDCNDTVCV4nJDmq QUV3OU21LIIaqHRXirOZwUV 4bN4CHG3TENCtWDAuqABGMO IDLY12QYCIYLSSGFNQPOEGS WM0TQ54CHQ3ZPqTIIYpTPGQ DS2PTDT6NY3wkGKWkiDGqDF OvE0aDEJ3LNGYIG5RAJ1oCI DKLMDCAXNAUHCiNTX2jsGXm AMIjhr90KUW0LqLcj4U1YIK 4CKYdYZZdn6yfDHKwiNIyVc EwMzNcZnRuYmpcdWMxXGRlZ fZln3jms314hGUbk7brDDJd NmR4vDNzHHNlwOAsL171GUB vUYlxl7yzr5EcTXJyrSYqr6 B9NMCMqfwldAz2dOqiZ60su 0D3VcrqH8vrOTVmCWXvD2Xg XO1tXUYyTqw0BEB9OPQ9UCP hOOGjP4VsEE2tBJLobREeXN j0q6dzeWefPDEpWCI1x7lvA RclaqYlNT2ntr4yeXt8e3jh otBjFJTyQAMewYDJSMQoV4J fgJreZb7evXi7oQzjGyvgGV U0Wjp1CD2eey35ojt2wFjvS FXofognJwT8QIxhFCOumsqh NQr2ZAqsPIBtsGO7ZUQokZM pF8SbWFPrOX5gvws7KHY5LK oiLQMpVaU5VXHnmTMwYJCor QutWKhzf344VAH1KmGqAT0s Y8Caw2P0bM4ifMDgKIDfeIC bLuJxRXQslq3fpKFiNUjnf3 IwFGI2byU6sKXdnAPlYRPyF aT7RGrhAF2xkt37LNUjVSY8 fm7rcVQtqMpdbiOjfENkVIi hD4UjSUWjl625PPSfA3XjKO Dvo9M8exPfZyPwDHSigAY6y wC2WXXgAG7msfift5hgIKdw RHtrYKIgmwZ7gbC2ZADmxNS cB4VmhI5rZJMtRS1brnozx0 odALA5CTvoZYDnOMU4OgZvW VQrv3Oxdhc8GiDuh6LhlOJb DCnmL28yz493SYZxyfSpO3n wbGFpblxwbGFpblxmMFxmcz B3XVGuZOpomxxyOSUpDYcoB 4waAlUaXVDvdZtbPKsqc2Uj XGYxXGZzMjJcdGFiXHRhYlx 9KDUbfEKlKBEvVfJlJ2prox lnDwUBEJMkr4ieG9sufVQYu ZZxJ8BsLExnvdEhMPrrUXbo UfWnEPd5LI01IlCdRVHwsk4 9 SYNOPTIC REPORT (test OVARY or FALLOPIAN TUBE code = 5765) or PRIMARY PERITONEUMOVARY OR FALLOPIAN TUBE OR PRIMARY PERITONEUM - All [email or web address] Edition - Protocol posted: 07/05/2021 SPECIMEN Procedure: Total hysterectomy and bilateral salpingo-oophorectomy Procedure: Omentectomy Procedure: Peritoneal tumor debulking Hysterectomy Type: Abdominal Specimen Integrity: Not applicable Uterus Integrity: Intact TUMOR Tumor Site: Primary peritoneum Tumor Size: Cannot be determined: Largest nodular area in the omentum measured ~ 5 cm Histologic Type: High grade serous carcinoma Ovarian Surface Involvement: Present, right and left Fallopian Tube Surface Involvement: Present, right and left Other Tissue / Organ Involvement: Right ovary Other Tissue / Organ Involvement: Left ovary Other Tissue / Organ Involvement: Right fallopian tube Other Tissue / Organ Involvement: Left fallopian tube Other Tissue / Organ Involvement: Pelvic peritoneum Other Tissue / Organ Involvement: Omentum Other Tissue / Organ Involvement: Uterine serosa, pericolonic tissue, appendiceal serosa and mesoappendix Largest Extrapelvic Peritoneal Focus: Macroscopic (greater than 2 cm): Omentum Peritoneal / Ascitic Fluid Involvement: Not submitted / unknown Chemotherapy Response Score (CRS): CRS1 (no definite or minimal response) REGIONAL LYMPH NODES Regional Lymph Node Status: : Tumor present in regional lymph node(s) Number of Nodes with Metastasis Greater than 10 mm: 0 Number of Nodes with Metastasis 10 mm or Less (excluding isolated tumor cells): 1 Emery Site(s) with Tumor: Pericolonic Size of Largest Emery Metastatic Deposit: Less than: 5 mm Number of Lymph Nodes Examined: 3 Emery Site(s) Examined: Pelvic, NOS Emery Site(s) Examined: Pericolonic DISTANT METASTASIS PATHOLOGIC STAGE CLASSIFICATION (pTNM, AJCC 8th Edition) Reporting of pT, pN, and (when applicable) pM categories is based on information available to the pathologist at the time the report is issued. As per the AJCC (Chapter 1, 8th Ed.) it is the managing physician s responsibility to establish the final pathologic stage based upon all pertinent information, including but potentially not limited to this pathology report. TNM Descriptors: y (post-treatment) pT Category: pT3c pN Category: pN1a pM Category: pM1a CPT Code(s) (test code [id number] = 3357) qx5ufh9KjvSMxmNCdGTiiwX KtheNifz09tYH0tB99BX1sB OCaJtJ0AJOqzyW0Vgl4OBJq QNNhpEEbC836w7rws5dsicT etCW9iRsnQLWzfulvLbM7CY gtANPwoffoETj4YKqyRKFfh HM6JJUjjNYrL2PqOYXsNN6j yho3KVU7YDbyYOYvJbE4QEJ axMSoDTTaxHccPPumr450UX L6VdUrITJdveYidYuymM9zE nUlWCSXUgO3ZLXbMQufXSos DpE7XJn5DoIrWoV2YQR3IOg bYLJlUg2aIXlyJNubfPJpHQ DnOYn0KqY0KATvnsTZJiZ8O GUiJYpiTEZbFD1bQHdkLRe8 MTm9UdMjVoC0RAY1QRZ6Veq xVKQoEd2sUQolLHZziJZsWN geMXp6FmA0LARngz3= GROSS DESCRIPTION a4sbqHIgFGEqkGK8MfIiROB (test code = [id number] [id number]) LgssPnic33xVI7uK06JC9lM WHxQrY4GMVqiuW3Jbw2EBFc JURpqDChH167q2fjg7nreoE ahSM3FLXdWHKhX4WuUU6qOQ BmdPKpL47ieDVlZDH0CXMxJ OUvzFYcFQAzABU4CAXcyVUn K9saXAZrBR5ttjkrUKxgIXr bWPCniFN2PVXipFUiC6ZwAJ BwZUhwIHSrqnu7RaRjEq1ki MRfbHijAJnpPPOhk2fgNQNa gASyJKJ1BRpzuNEfGAFoKVT aMMt8CIUbKKufhOBkBE2ztT dcRvgfbAdcx2TlrZTxYVpnA HLbDJMsCFgjAXVoN9CKXDYm DgQ8MxU6BNQcVVe2XPg3VR4 KMeXcRSQgTSR1HnGiSEYrGN f7ZScgMR6ISNK5NxO3NXd7I wN3EPOsVYWjSROyNtWjDHNd WCvwLgZVsacrvHRsNS0mnQf wbGFpblxmczIwIEEuIFNvZn KmOIfvz5VkUTGSyMffrg8kr OVnTICdCiThUA6wZBFkX9Tm dmVkIGZyZXNoIGZvciBpbnR kAN8fCRXigOo4LQNod05lbR i8UPMae06imIBsVQbqZMG3x ZQhKDZwoIdzemUfedRmZV2s WNIeI0Ukc2Ccq99upePmVfZ jEIJeXJOqx63fsRJ6aLPulA PhPH68wCXhLcKndxWxCHUqi i2kkX4zRXPtBHT6AT2oATSj uOHbQTZkEjH6lMUmqGEis3n 0cYOjLOqpfNX1OJ3lhhbql2 VzCuLkWUZoyvGqolRpk4vrP D1vUYDxSQItkFWfMRuuANG7 Wo0exDWkTRNwovRwmiXqlJP az4LoQdNafuWnVOBuZSd5x1 foUCnwQAMwn4RwtHNrPZQBT CRrRipeFNUlwYTjPSaJi3lt eCoqy3OfgREvPEziJARyiLY fVNhaeI5eQvSvu6eenFa3CR ovsgD7NQLmcv22KYtoVENbQ 2IoJ2JlZBxbISP4MXDbBiFb IMYqRO8HYnSpKGeOCBubBuB 8DsL0DPi5MIQCTbHzMyFoDx yaOGzyOJQiODg9VXe1JBkPR nY2NGv0Ist4WPVlALFvFTgf GFo1YJBdPEyjvQTzCYOfRPL fQOdcGVxnX71hTbHxYBDXOb AYo5F8QFPcz0J7RVyoA3BhB XIuXHBhclxmczIwIEIuICBS ONZhyFCaQJLhyhZmk9AfYEv pbiBsYWJlbGVkIHdpdGggcG O4rXMkxGiaKH8gxKHfEMSaL 4Xug6zpmiHsnF1oLEHwVY5r GARlu7B1LUHwl3H6YHowr0V oZXIiIGFyZSAyIHllbGxvdy QeNUU1uYDpnOJjmHFpe7Ell 93cxbP5vMUsJZLbgKYmmewl MRGczMK1NiZieGQrWTDnVUD xXn21NLewDHZ2GAIlV99gSC FRmKUqg5KzP3usWA4pbWBnf 9YftUDciFtgd0QswZbgdgUp UTDeKHQei8TpDGjwZLPcRLR tu3XvrZShz9EznJHhYRfecH 82LRDjbIYns9QxPKJcw13cC MKrk2ArgYDjGQ6uBJUsCEEe YFohwWquM2Y4sJQpfK7fWPE oZXJlIGlzIGFuIGFyZWEgd2 c6bJNdGM5wJRUeFMGxRUHuA DDoPE6zPWFvPXAbyIFkbyym ECS9HIStVAG3PMSeW89hTWB HpTPzT6F4AFM1zcTgC6Lfk5 FioCrwDW1yBCRgPAEeIIObQ HZobPWudFH8wlVnCWTtYrBl XgU6dKzlDFPhTIJkXF0cOO3 eII9hKZ79nCZjZImcm3ewqw IcTIJnZHanNW68tHKtBJZvS VBCGGYaODPxncIacQf3SAOe NMX4nN2etdFqehAbm0NveTd 8fXKoIZFwPBXduArmr6CiCG PxsvprIATvL9YsnDcxwrVqe 4VzKfrsRZZhQgPiCuC0ZFDf bFLri2UxwDU0cWBmPGQgP6A gr93vLK0tHM8dPV31lP8oGK ZyyOxjP0JoRJRefyJoSSIcC CO9NJzofWPwGZB1JZJjGDsd SgDduyKpFN20XOLjzyNld8P uyIaxqzXfc6Jilv7eyRknzj AsmeUnWJUglBndD6EdYTAze nDyUOWoUWE5WJavjMFkTNLi Iq5AKaI6KIYtZPe3kN0lZGf spdCedvHjHW08FHCgbxNtc0 VevSvyalBao8Eqk65rzsR3t ZnvPKOdZQJduoEyQLLxB5Au u7U3gRVjHIHbvqchVBYzNuZ bcEXuJSGbjujhTXJrN8ZyT9 ZhnqTijPAaDSNgjpOqv9moP TJ8ZPRehTSvyTMmCtFtZhob VJP3r4obXJBxfUDzTQO2ANz caWQgNTEwMDIgXFxkYiBPVl ImWlDgOcP3JHniYKTuPAx7T BosD8QYXTDmAQV7TJJ6TaXw HwI2KOf5UBPVMv0hMHH6EQW 5ZNPuQHD1LyV2UZxltSOzHI xcZmwgXFxmIEFyaWFsIFxcb dQ0EEOaDpUxBo7uM41gkMKC mTXsdDBwEE73kQXmMidiGLK fVwVaWXlqWeVeJy1xZzTrFP b8TPNacR5hLk0tpJGupR1rH NhwSeHhYRUyf5q2hCJ0qKHb zDJ6qKVvhZjkFB9vvOTwMSI mG9Pqr6lgxdAfqG1fMDPvJF 9jPFFvz0G7XAIje4N5AEqyd 3RoZXIiIGlzIGEgdGFuLXBp hcpsoR71UPF0BAHurXRoUVe 1GGb1KqGkN78ckW9vnAKaJ7 XaLSPjGWCxKZ8meY7bLTOlV CBjbSBpbiBkaWFtZXRlcikg k1y7jHXyMIPrGcF5NETbYBR 7EQAeJTXbuVMkpMMxE2woSG RtCNYbOKQoDE5fqRubCI0kT OyvKWSkkv6tYDSxpfR2EF5m rIdqssXrnyBxy83en3BrDRf wqXkceNHdfFetn3WvpJR3SK 3cu5ooiDFpyr9odAqrzyYgS J5jhP5iPZYad82ueCOuieQ9 oPGvFMCjQT5aEV9jYCalQEn tIXH5POD8UBMrvNCat1oysf 4gIFRoZSBhcHBlbmRpeCBpc uNiURYaMSlhmIVjLWP2bU0x LMBnxQ4shxP8ARXoRIHzgJ1 xCV32EQVkN3ZzSU5jaIYlsM JjUDA3aWThSQvqDpO2wSXfo Mlmv6U2YTQxAFQbJK1jeWxv r6XtiLkaYNOhjBFfZWd4SlW dXAgbQCm1mHDaVZpiKYRdcH P4FYXgBSTlWZ86MZXwPoVtL BtyEBspmPsvbWngQ8lzPLSk RFgnGJFtPuAqmV1cLhFxlhL lPT09TLWwrqXhz3GsyKuvzq ZnDUHlHKW2Xw6jhHUxEJ9do BSuQWKpr9YfkhV4XQIrBHEs w6ClCO9tMHZtNSWkkPWlyV3 vum4wbCRwDZTdprNYibfnF9 0bJZobhZblCDRLmtXpU5Loh PYmmZlaFZchlPTnY5aoUCAs gefgDHSxD1NvdBjqdwVkq7K kKbcwTISgMkU5ETXuv8uotO JcLY4jdvtqjaXiyzRlNXDwK XOjDRKfkSHfI1LqEQV5zPHb SXEdZMAmL8MbvJLfDDWfVkI AUJUrLJYuhxUcgMd8ONHdzj 0knzUzDKF3pJ8bebS4hbBnv mNsdWRlIGFyZWFzIHdpdGgg cl9rxSovs1klSOYfwGUtEMW sOpIpR8GoNEvBc6rpeRxih1 VjdGVuZFxwYXJccGFyZFxzb C9qUkZxd4hrcRl5UPsqhpZ4 OPJqbs74GPoaCTVcI8MvU5W gEQdsHJD1PENqDmAsCKStVE 1EBgXeMIzXURrvNmT6UcZ4G Om2XBRHMoCxEeKhXmblCKwd UamkMQl0UBo7OOxYIpU1XVf 7Fvo5COeeMDFmEGdpAAz0ZR IgXFxmbCBcXGYgQXJpYWwgX GfqO52mAcUrEDJQVnMUe8L4 CGBgz0I2QLqvI2ItSPEjLEE hclxmczIwIEQuICBSZWNlaX PmVOYjiwKuk1LqFNiurgCqM EXzfAPdZHxhkQkmeBR5sPWh oArzRK2goMNxTWTyQ8Ilx0f degVgeK1fBYVvVE0iYIMhb3 F8FVTbs9O9DOtwg5GcGUVqP VRpAUZvEQPkii5yyL7xGHYu XHOvc0vdNOXie9Q8OUOokoZ siKHarCTacFPim5JmzA9fHF PrAiL7SVFfFfL4SJDbKmXer lZaIV9eKLarCF5iOIyoWC7e ZHEiPyUqC0ZyR5bzVR2cgMM wu5BdyHc7sFPuGHdnAECbgJ 4mjT9mD2Tqg2P0aFAmNECzr 1svnNthc0OelEGkICcpIRJi kMWyOQkosP0uYcZpt3zsjPr 7FJwwioD9UZNvbq99AEroRA EyU8FeZ4QiWMnmNFH2YTRhD wOpTIKpTN3YFwQvKXjDSEyy CnM0VkQ6QIc7YBSOPxTaCdE rKkbmDDd2YSrnDYc4XDf7ZJ sMFkJ8MOi3Rmf8NlctSEVzU JsjEKm6ELOvMKfrdJEvBAUu EUArFRolDDooL55qPwPaBZZ EIjNFtWMhkVNgdg6LETM4bV guXHBhclxmczIwIEUuICBSZ VUgqOYsHVUjepQlu9RvEBwt biBsYWJlbGVkIHdpdGggcGF 5cILzeCjxRY6zaBNqBRFvB1 Jka1tdfcNkdK0hADPtRY7gY MX2bMDkrDAfk6t2vKYiWVF1 aXgiIGlzIGEgaHlzdGVyZWN 2v341DAHgPXIgp2zcY6ZkmQ dls7PqQ3mzJQ7hjMZhz4Udv O2wJVH6SXgaXQMsGRC3KGZt I24uGHy7i8wedDzpep1hEWO mE5jte4BhOX7vk7uylRTvLX MlPLEkojxeLCRwdD4npXXbQ XBxyVl3PPNgpM00BvmefG4j SZznmeOiAKgdDHY4cWJuiUX lNRPqq5YrCXduqWoin0bkRC FzAOTdGAS5vO0pGX7zNPZ4x fZgRMT7WZOnXPpaZHmrgdd6 aCBhbmQgNSBjbSBpbiBkaWF hIEJxusK5qCTgFMK3wDJqvV FeTM8kt6MnnVDoiK2kJUEqD SBtZXNlbnRlcnkgZGlzcGxh vHYtfPOxfGekuKUbj6EbcES fvnGwOQMbrl86gWu1OJGlz0 J8aJZiEqJcCJkea8Mtzd7is WxlcyBhcmUgYWxzbyBwcmVz AQ61IF7ePYQjTKJiZOJaj1K pp3ZdeHuxGTWnb5SdCiOdUD smQITqmr9cIBIskbN5OM9oc GacegCnslFquEVoWD5ejF9r msMofGXuaS7poBcgw6a7sMQ ztzTvyPHgEHQwwkuwy7FrcZ JoAo6jMEQsv72fFgBzLCcmC LVsv7GurMTkq5J4tV4iTS8j PJVxTEYds1srcPFdftPgiUV gY1rgUYG2giM6kPRzyK4ckC LgiZ1rDBI0xmMgM1Nuy1Kly RhgXIU0WHL1ipB8mUOpFGPn bWUgdmlzdWFsaXplZCBhZGh yc9kziyGrUFBCyDUnJz32WY xpqTTho5QvhdRkDTGbSHDmb 1FpQEdkPRA7vsOgpkMcH3Xr SH1xJnZxEVoimXC0UFBvULn oFYMrj45dxiNho1XkoDJqEq J1jYBuBgThODFlEODeGWVot EXkr6TdZKafwAqdpRPqiPBo GKHhdqanA30bg60rIbXar2k rroQhvzFkq64nhaZnbEs9UW upJELkFAYbHJD1fQ3zOMsuc GggZmxhdHRlbmluZyBpbiB0 nPGgo4puvX6dSLDis1swqt3 qDH8oOQypb1cuquLbZUBeNO mcGK12oICvYMQzxP3vxAzrV QAgeS1qbKRohKHxc9IlQxDt RHVlIHRvIHRoZSBleHRlbnN qrsKlFJJzQCRawpHaFR5vFV LtFRF8xFPgtKSliD0slMmaC WFtI3S1tUW0mAWluIEhmLAg hxXvdAGyVHAlWJX6hO9nZUv eFYDlREEeOZF1doDgNTRhz1 Hyd3SsAI5eqOTqPEDecaLRt FCjeOEfglTiDA3rGIL2zqPa MEigCdYflXAnHb4YXWscNl6 mVYLhOMeREDYmLEwbCDI5Oy YyC88hVQBoLGLpKKitmBhgB C6rTYI2TOIcUCHpA0Eyhmd6 MY2iKRE7qvswHmPeWcJkaPW mOwIyM43ve4g2kKPxAYKrT4 8nw5yecVtkl9TrM2PqwuvmA Rlfd0ZjKBGcRXDcdCKnH2fh ZCBiaWxhdGVyYWwgYWRuZXh gZtLKoVBgY25gf12llKThGW ebOBK6gYjuJCT1RMDfAMAhj L3dzKwpDHT5TOR7udUvqwT0 iLArqP3azMPohK7vCOS7jaU gT1SdXGXHaGWsKF06NESuc9 IgdXRlcnVzIGhhcyBhbiBhd BIvG1rzHJExoDStKUTpWQIl ewr6e97gLJjkuUycv4JzDEE yEGPavSUloAQkZNLkb4hsWV Dsz3Gtd1Fzg9p2iZOqiPe8p GVnVDC6SW4hi1chkWSbgu8j uGngtk1dWBAomXRsxZUxaEV mkqN1dJTnndApTVIvLOQ2UL VjxRU8VZIarxZ1tyUzcFHrw UH9WMItnQJbRVEqbmyto0Fx h0YqPC0kQGZpSSPxniNcumc yqhB8uMWdoPHfNULRbIYjqX RlcnVzIGlzIGJpdmFsdmVkI GzqbV1xPS60GCRqj5AyJI8c GYGgd3ErwgggneDoEEj1BNX hnX3aXHqzrBpbkTXgSTJjYI G3IKFsNuZvrOShrVGhQJTrs rsvv3LrhJWasNW2o4Z7FWNq dXRlcmluZSBjYXZpdHkuIEE yuXZpS7WzoFWlPOxxq5RcME EljX28fqThtXKwgPZvUBXeX DMgeCAyLjUgeCAyIGNtIGlz BEdpHS71nEJqZENfjL7dbUw xKDNbB9h0HCQ2GNA2azRsbP O4o7A3uP8aOSBlZVIqb6D0F GJyx0ZstKDsqcBvEbZFgXLe dXRlcmluZSBjYXZpdHkgaXM gdGFuLXdoaXRlIHdpdGggbX JajErpeQGrnGIrUC1vZZOlW RTtcFopj5SgtQ29yFN7xOBx Q3O5vGO5CcMPhNHhTSEgtbL zWCKpWuN5DBCyO87bQXQlhs B9qIg9KWHtkHPda4UpJLJvs 3CcHorvTEXcXCIbK5TrRPCr CEDon7v3iYThxVUmM9feIJI 5htZ6zOTlo6XmNXGud7AtnC 5zwDrswwVkTtZ8lAXwUZ5xi 65ylQShvT1yRUWtVZAydfBa oYX7fim3yCHcxiKmLUAqoAt aoohdmIVbdFadTR7mRBlmML XtjKVysI1sCMO4TTH4drZwk lLfRXP6yT0uJDUerH0tDRcd cGxheSBhIDEuOCBjbSBteW9 tZXRyaXVtLlxwYXJccGFyIF PuCALiNZP6TNA9vIJrkWXaJ CJcybI4ZSLvg93agNM5luIb CnSjKKLmePYoLgVkP53cLxa vOrRjWZCyWLYePOmqb0MlLX 4gdHViZSBhbmQgYSAzLjgge MWfOnHgpATkBEAzNT84BKV8 LiAgVGhlIGZhbGxvcGlhbiB 9zKFsKPFvha7nVSLtpbA0LM 3mdElxujA9dTNiGH12zQFxb WuyDURhyy96yLp0PXOpm2T8 bGVzLiBJdCBpcyBzZXJpYWx uaPFuISP0dK9bVWKusZ2nSL gsgGpoyBIrNEAkeaQegR59L Cn0iUFyDvMrZLbnXAbqBaGi d7VjgtqjaKCld3AidWZft5b qbUCvVVKqTTK1oEMwODBumC FuIHdoaXRlIGFwcGVhcmFuY 6AmATi8NDuhZQNyk2ZpjFZk MFGwCPDat2MrRCctNRL8CH3 pjR7biPIglP52YNW9dLPspD JmYWNlIHdpdGggbXVsdGlwb CPmiEOrLMk8gFUwlOqev0sf tKXyXLivbIHaMPgjg3txaqX eNWFTpxRpBQXzvvv7vQFnDB QujeK1hyFmdVLwtL5tiLJix POurpReKkgnSZ5qjFCkODri rxXyQYoaUNNiV4i6WXQcriI 0FSCialDqp9Crk1TqjG6oPH MvwmTsCuKUxBXbrnKsi7ZsF CBlbWJlZGRlZCBpbiBhZGhl k7jcebDtZN2rQSXqlcr0w29 nrR0yZW6iRIBgpbKtb6ArBH 3yLJChJJS8pGXvfGOzMOVmM IF1MSEqZHUnSRCfvJhjtRre urV1dXMuQSNiXTGkuuEgdyM oxRVoUWCgfRCzlgbiOG65KV acVNFgeQMqKF0xBPVwOSXsT EPgJEPesH5bZKSyVKzfC2Aw WG80fb8tYGSpeaqjzQVrUVG 8nT5kenIpmwQfzQQyWm8rzC EnTMCjIGVyq5fdpJzrOC94I KGnSA4usEWiLE6mmWdsZCPd eiXyjBAjOZOghSH8gP6rBSS fQPOqOFRmQSbur4pwuhKoRC LutZcobIqjltG8rLJpNIo8f IPdAPPoYPOhz1jpzS2yCCGm UIRswZGkd9VqMxLrDJLvRiA 4eKPkc5EdvbgsaLQwmNHlOW Tjtmhou7n8iQOlGQakeTN0D F7hwcjfF0H8HOI4rqBoF0Nn XR9bFJ9wMYjjQX20tTJfOUN iCOHwt6EqfLIasJV0TBSaKf ZiOSnkARIbfDbmiKsyhxI5r FEnGBLlbCAvltUcS64odj9b nGLfDDLsihK9fGJgNHEiKBW kq23jPEJgCVD8eERbXthhBx IvHWVsxyUim9RrT7Izx1Sdv SBpZGVudGlmaWFibGUuICBU rRIfn8Kvr5AtEHqhOVFqjq1 pjR3gYNaiqDdaeFTwUEvdrA SwYC4aDSIdRFSxUM0wZODbF SPwbC7ufvLlleEmhQ8em5fj jU0xBNUglyKFYFXnQNBcwoK ohQm7CWWeORV5vQ1cbsEnsj Whf3VreJj2yLOuZxRKjY02v 9onYQFqrsBwixEklREmPE2a b5SedXyfBGXyERRmnHJyYkP wgALlXFWdnbQXeubbX37vQZ ipCVgiFBBvG5AehhqdIRGcf 0SvlNMwz9iccytqVD2ndobd hmghgT1qCWMqaPLnzGCahTh yTSseW78qy67aCmQbYVDxnM 5ccGFyIEdyZWVuLWFudGVya H1nPGO9NFK6n8decK0oQCMx LDOaEBEpc2VvgubjemAcPOY 1bCsclGPyLYFjjoOEIXX4nP 1kCECoIIP7WCamvbHgDKBhu USqaJwqNYpjX99ym65sUmNd DCJzrO6gfRqgTYNTHy5zvWE 5RBetG49eq19pDkTwESEcwL 3hdXZjIPQyUZRvqKEil5Rqt XN0lUCyTIYbQ4Fxm57zt8Dc f3xufO6zKQAvh3rpqisklV2 dIGM3VIB4ZPE0yCkfjEqeP9 ujFKBjJUDpK7Xzf70ow2JpR F60ZKQzj3ZhzSNesyAgGXIg otQEENNnTQFfSKT3dUrinBg pB1olAIQyJLFmQ4Gix24ps2 LiaU0xoOIkkX8pSUT8JXW5l yW6rRAxEHRiiRJyIS46UEBr n9CyJWDlvfOQNVBeYIQ7UEZ tGLp0qC5oPRjhYrDxmM09kW rvm94vj1Juo3YdtEhhzhWcU rSnt7F3SLDpg0GduNXporQa IHdpdGggYWRoZXJlbnQgYm9 5CAlvxWRxTJRgDj7iCGI6tr M3nAR7ANYljP7vqKHjiW0mc W0qdTKacW7wXOH6AJH3s0xu UTFwCPH6HKLgsAPic8SvfAZ 4uTTuKXRmJ5Lou61em6QoZK 46YREuj1AvA6Tlnyb2WUzzh rCjRWR8NPTryFSpn1RlnLB7 lHUzCPGsC0Exc90iy9RcjC9 dwEMzlO0cSJHkfgMbxZliES FiWTEfIOHlvORbc9RegRI3t HTsLTMwU5Bwf11aFJ1sKLog WpLzDiSweE3csWBvVPI8FpX vJM3lAMEjvDVenNTtBqjbOL C7WTUbzFkuRRNNNzAxTLUbU XugBtHln8SyljllUoayIIP9 SKPhyFOpJGPaVj6qDC8jVVV kPYQ4XW0wy2shdrviZJOpGT VwFIvifuJaIOZ0UOZxX4u6V ORvjKsfoSdjjbS6lNBsIPMw CUIzz3WacLCnPKGhsH6iefh aXPhymnXoXLF5XDBmObTqyV dodCBvdmFyeSBzZXJpYWxse QWfHGX2iH5oIPCxVRShTM6U UgEyOP0rGWXWQxAuXuBfGHS eYBWcbaJjO8AfmSJux2NuzS ndppZuZGYwswFDQkFtFUT9L JAie0GeRmpwJYHovCVpkZ1t heEoKVKpAAScI6y3VE91IPK 6FVIhnnKGDwTbBXL5XKAhss 99iTq8XEKwr2J3iBBaMX7vB ZSrwqq4g81apC4sgVZxXFOy NE5yd8W5mLCydU6nlKXrtDG wozT6uWNnqQUwIHI4MQ5YNP CjTaslQSJrmoTeLGIrUCS2b H0wMGprrSkeoZDvJMgiqBVi DT8tFNUjNGAsdBStWLZbfyN ITLvqXRJyW0LyS7ApdxZzaI BmUQRdjuHwh8dpRSS7XLTxu XVcqGHmIfEhHsbjGPV7w0yv IJXerPFjWBC5EDbopEJtWUL wMDIgXFxkYiBPVlIgIiBaUj G0KLemFCTlEMl6UXmaQ2TZS EUiCMN5GLQ9FIRxCzJ8JNk0 RSNACl6bQBO9BSR4Cca8KNK 9QqD3RCvsfTYeRRbxQnqwOE hzTQKtmYSgPHzthhP5OEZoR lOdRq3fJLPabsSlCHrjF6Cf pay2DhsxDVDdOyYcIAizCgO uRz2eJoUoGBq6FDBgsK4uAp 0hgAMkzN8izAQrYLzgJXN0f PYsSGMnyNmwiwRmdhRkUP0d NEScJ2Vaa0Spl08ahgZnQhI gXHNnUABwMlEkQ2ahj6QdQV zkS5ImMR15FmTvddBnMCwvp RR1NDznFI83ZTBoHMYtgc6g tM5iAKFtoUK9nMDvIKSbvEi wI8Syq9Fwb77bkGN1kCGmjJ Bgl0r7dWMzrrBvoYUlE7ieT HRieDOgaHQnRlotdb47ioWd fSWcZPZaVxZ3aMZnbSYezKS mk4YsbR5tNAGxEjU7CNKwNf 0eUDGfFEOkjCKgik5pyKPtf AIoBYEuDEgyMGJfk786oCE4 jSQeCE5sPMmta3DkhTuumYA zxvRzYoixAvweQY8tMBFaRL DkQNTBfPHkIIc9BAYzYHiav 3VyZmFjZSBpcyBpbmtlZCBh fsDfm2FyP4apVI0ybHDsw6G rjYOmmKwgb3PmtFsjgvBdJV XtPSUsr6PrQXpcVFB8IPixe 3sxIgA7xKdbX6V3WLK8mwSn V4PbSS9rRDSqkTFcGKdusUQ cXYCqXiEqxCEtwl9ygHvdKO 4mHBO9inylAyN8GqEdpRXiB vCqjIBeLtWbX04gUUNPKNAq NOJkexKzlDn2ZMEkMTB2xY0 wgpZrfyMji7ImsLt4gLRxJn YnlTOmOIHrogTOubfmN57nG ZqjuRuuRTOGxCDrVZM0qAGb duWuEVE1qyJsP8VsvOHmGMH nkhGDDIF0fX0qTKSvCAQ7HN BcahXAKW6RHBzyglOpgaMvL F54HKVwzzZft2LafZoqxiVy m5FcgIfcl2YdVLKyDTvaW3u 7PPHwmPdsVDPszk72oJq5ZL Gar0D8tXXqbYRcHAG3JxJFF YOqpBqrzqNbHFJtqYIxw7Sr zHU5lFMoCNUyZ5Wis27bXN1 wNZ7gCMY6MOJogNDms8MbJF Soo1W4RWwhBIKsL6RyC2Iul bEwqXOvRRFhbyZjw1fkEOY6 XHNsbXVsdDBcZnMxNlxwYXJ 1p1twCMYqrQVbOSX7FZsbrB QgNTEwMDIgXFxkYiBPVlIgI rGeRsK6EFoxTPXlDPs7UPkc T3YKSRCyZFX0AHUoQKr1DxR 9LSl2DDVSIm8dAYB1VuQ2MB mrIFN8RyD4EUpstQMrFJmaE mwgXFxmIEFyaWFsIFxcbmN9 BEGzCqFvA9GtUVpqVGMsGcA qKSgot2GvXDOTaFlcob1lmW NjRDBnOcZeYx9yNMIlY2Ubi cLbWEtrZFRofy3goVovCOpn PyUzMDBcc4a1hOTyZWXoGW7 3M2QwieBrKBtrISFxETLwsW 1gVL95kOXtwqInbdAkVlBnV qMjsZcur9NfEKRdbBaguzZn YXJlIDIgdGFuLXBpbmsgdW5 raqrnhvLjUCDzdW2ydXGbEY gfKG29eaVfZrRza8jhpywmO GUjm4V9ZFPdEIGswJIohusg On55XXknGO00HUqrSSQwrbJ eMO38RYrfUO52WGelKMVilS 8iLNBdRRUchFTmt3EarONag ZDxSKIuoxeac2y2qRDfseIv SQGdg94sQlGfEh8ivSIxc2M zIGFyZSBpZGVudGlmaWVkLi SkB5UvB5fdIT9vcTBxd5Ueh Pv8vLNaLTraGLNpwG4gnP2j T9Set4X7eCNhObYhEjFuOWD hraimPZUmGyF2HVLanOYkXD S6WG2qmHlaUVLkQ1QiW4Pzy tO4OJTpjb7= INTRAOPERATIVE e1kkzABdUXRbuPPBWBUnPwn CONSULTATION (test jysPbUBImjRYsD9CyznnlNQ code = [id number]) fyPW1wKI9fbXkxdFEshHZvD O6GWRBhTpHfNESvuIVzzhMo TiWlJWRyoXPbhKY3JQYnDR8 crjncFFamNEhzSNRomnU0NO WcdLAqD6ZxKDTbJW3dvzrtP DC6WBjhlY0nezQXUugfBs9r dHRibHtcZjFcZmNoYXJzZXQ hJFGorBwyJLBhFEc0nA2HKv tfCVW9PVRZTeooNEMfDF1Hg 4vjXLNvmJZaDSV0GDoxxPVo GNJxZOBhACu3QSSsRJnkyPC xWX1ljGifEmsheRmoo5ZrsP BcXGlkIDUxMDAyIFxcZGIgI X3XMaZzYLjBJFxaXaX9LdP9 LDv2JRQUDmOzLnDjNrwkXWU 0MvbqKEs3BMn4AKtZYaR0GD qkSlCfDwZsCBQrSYfxRGj9J DIgXFxmIEFyaWFsIFxcZmwg WCspG82uxZeqpU4sCW3jU31 ymDXOxHIlxNItAS98dHEdCs wrBSTjOYstVTEgM73zd6QNg 9VePO9WGKl4jyWfsabwgG8j FWHupcDoJIchiSJaR1dtYiV bYECYX3ZmThIyASuMJVlEPD dNLCBSSUdIVCwgUEVSSVRPT wTCPPYFW6ARBPLuZUZKN8pW NQ0ZUiggsG0kTALkOXSeIGB kFZOrV7JOZWbSRM5OAnGTNH YyWk6RXERNWTeQW3FAXEYjR 7FpX8QOE0zPM82GMoYePU9T RSBUSVNTVUUgUkVRVUVTVEV EXHBhciANClxwYXIgDQpSZX C9jAJyCVQewC4ygJYmGZHeG SOqUnXOu6K2YZtpujBvvZL2 ZhQjZLCEHFmrhQnqeW5uZWE yG88ne7LXx6JaORGvIHfgv1 cfiGtet1TkqHZjSCgwZQYcy JNeCBawsD5nXiFmd1sdlXi2 FBlgymE5HMIkxp5UKxkikQ1 dKhXob5xwzTa7DIAWTqciki X5o5oddJxhb8HywMHnSX3LZ n0= MICROSCOPIC e4eegKXuUJOrrQO5RwKeAGY DESCRIPTION (test code aw8gbb9PxsLKzgXHcOOutfX = 3372) RfmnDudk48lHB4dV67KK6jT ADnFfV9ZMPlquJ9Uvi7IXFx CSBqeQTdP647h2ita5fcrcL gwXL0fEdrPTJzzqctFhT8EI veSOXdeyzdMDd4PDmsOCJxd UM0TCKplDHfT6VdFTAgWX7e til9KWN5XPdeWXWpFhI7VIK ybWYjYPJqhRrkMPwoj647FE W4ZtRhORCvutPtxVvbdO0oU qVkLMBNPMUcu1EjAFZzHUPj clxwYXJkXHBhcn0= SPECIAL STUDIES (test r8uhvRHhSCNetTD6PfPsNFB code = 3376) na7icb9OhjOXtpTCuFIkfbD BrtdBujl77aSP1kN96ZU4jL BThYsW1WRXhjlQ9Nad7RAKk TXHvwZAxC265SAZtHAQhmEj zrlg1fX18OKXkhV5fuGPnBX wvupYpQDxuvtBjzqXxHon3S BM9lZuqLELcxacsCkH8JHpg PAVtiiakJFl5DWvnXRDifKL 3TYXzhDEeC4IuBWEsPV3aua b9CUU7PVfqIFVwNnJ2FDOzo AIgJDDegKnoZQziy940RJZ7 LfMbBTXngeIapYezmT9hWsZ uBZzhHaWoOK2fO3CqYNSqjn MrvZCpIEinlBOqg6C5RHsys cEezTqcwBwmqIPmIg0aaXIl d9LxhUH5SRR9HESrVzKiHJJ leM6phNPnIQyiAEAvPO6sEF xuHNU4cM9jBOTsoQuwHPErX AHbu6DppHj9EOIbRdDZBZpg HZLaafLcY3AwZLplJL5jGRM pr5fnZKPpbwNrlvPxaMJsPT 13WZRacSYdOONbkY9nQeKyc GFyXGZzMThccGFyXGZzMjBc A5XmEOUep1VsSKI5YVXkVNB eZLU6DQWzOLX4cX3dCJCtiU c1uVTazKJ9QHXfpxOsdaOgw Vbafsyib7J5UWlgnw9bxWDy XHBhcmRcZjFcZnMxOFxjZjF ccGFyIFRoZSBpbnRlcnByZX UidByxqhJaVxJ9oHvlIOAqv 6MqfU7qjVAyHKVsbTnxVLXg WHDcLmWceE64si3fdBG6n5P eKO2ne8IjzSTbsrXbfSJapH XpQMK6AVkpoa8ofYKgFEKtc pFIl388hj2bZOSabYVegfMH bJPpbH0lXNccQHnzLGlcdQP mVNxus1iuBUImk6u7oLBxKN JeifRdl2whPYlhuyCxYLTpi JHbhCOdSAIqr30vHSarmUoy tTmpRRRdv4OlsSdsx8BjSsM tBGoug0VfQ58rkRMdsCQmkS nyTYWpqfCbNKRxq76jz7oqS RMzHrM0wLSxrYC8aQAezBGf e8JgpFplJXMoj9egQLVyjz0 yjjvmvLBbt7OiqF7lhxybLF beqNWpekSxBMJvy2z2tTZcA DTeCLKrKBumwLe0GWClh383 su0sauV0hSYnNNV3BAzfDOI sZSBhcmUgZXZhbHVhdGVkXH LfclIkQCOxapWJuE60iv7xx ME8s5HvZZ6bk3ZycXK6DWRq wpfqVXoawYBstZhbLaX3PTQ oyDOmOx2ksEBmZOH1YZFxpV ddwjAUhK6rXZFrGRe6MCAaP iQlWxnwqhVRKIPwC8VwCSRi rpWrrjpuPQJ9gW5xe6b6DLu sRv9tNJQolmzqs7igikAcxK Uqb6NrAITykpXtf2NgYNGvd lPzdRXkXOYgooIiyw8omqDr TNGwEIEzZ6UkyzebaHuzfoM 3ZXJlIGRldGVybWluZWQuIE j5HXoxvuVdn4NuRyVrnuGpw OTtrmPkQB0kHTKkaTTienCk FNS9DYJjPIPBLaIeTMQmg7W dYT0wXRKrvOjgRKEvcQ4pp1 LeKWXfc51gPIAoFFVMGXTej GFzIGRldGVybWluZWQgdGhh oQMnfXYoXXKuDWLqJF0mCJO qauXkgIBdq7KboUWxsmOwp6 VtlcXwCFRfEIM4IgBRhWLxa WLwiSRcboO2e7SdYICvomAm rWwdeEQprSPjkVKbb2Ohcx6 oYJFtz1ljbFaxTH9ktFEbIT ByZWdhcmRlZCBhcyBpbnZlc 4PmU1R5fK6rDBkur5BpEe5h MSFld1NcuzPsGdKDtDmkDHi jKl2tKAMracbayAVaU7DdlZ lmaWVkIHVuZGVyIHRoZSBDb DeiiAFlzAWUCDKydbT9h0S2 DQlxkWMxpcMeWA26QSWeKY2 ubSVwyKCvy3TzKRe5YPAdH4 eHEU02YDmxFPYgmIGroOduw ZYzIQTqKSMztnHytw3kdKit rGWln16szLK0iMR0EZMznJ8 bL4GvTKlwWe8mDVZcoqhaeD VfiYluLn7xuXPlsO== [facility] [id number] 12:53:55 Test Item Value Reference Range Interpretation Comments Case Report (test code Surgical Pathology = 104) Report Case: [id number] Authorizing Provider: Ronaldo Owens, Collected: 03/07/2022 09:04 AM MD Ordering Location: [facility] Received: 03/07/2022 09:10 AM SERVICES Pathologist: Kelly Adams MD Specimens: A) - Soft Tissue, Other, right diaphragm peritoneal nodule B) - Soft Tissue, Other, omentum C) - Soft Tissue, Other, appendix D) - Soft Tissue, Other, transverse colon mesenteric nodule E) - Uterus w/Cervix, uterus,cervix,rectosigm oid ,bilateral tubes and ovaries,bladder peritoneum and pelvic peritoneum F) - Uterus w/Cervix, falciform ligament G) - Soft Tissue, Other, procto donut rings x2 DIAGNOSIS (test code = [id number] 3220) uZzEwMzNcZnRuYmpcdWMxIH tccnRmMVxlcGljOTYwMVxhb jPuHOItjMVxO7LzcvmaYLej VV4fKR8haPrelIBijTJgLRR zHnSxk5uvw296hHCcr2mtJL HHlzlnsKn3zNcbP84wt6V0C oosV84gwOUyTDC8WATlGXWs oKRvBLRxPYC9KPRfsANqY2a tDUNwKN8amlymFYdtXDxeUW NaiTE6KPUclTFkE7OrXEZhY IumVUCjqyv5QnEaBm0oyFJh eTcyMFxwYXJkXHBsYWluXGZ kFjAoZY2hOAGQOWNFMyJOKV wgUklHSFQgRElBUEhSQUdNI B1PVBTNPWkaILnRZYSKL553 FVBbljx4YGXiEWWKFEwSIJx UPFEIUCDACb9KSuYNPIUPWA 5XAFLrZ4kADNNEV2CWVF3CX QVGCBOxL8FCA6uSQKFKQUdC TlNccGFyXHBhciBCLiBPTUV GNHZRSKSSZHTQRCBQBQ3YKK dszZViMOAjOvYkMCqXH7piZ 9RFPMVwJ5WQY2ZLUMCLLmQR Wi4GEEJIPRHVTPTVGW8KM48 DNO7DYoLNSMrSSBPWI4DJCO 9HK0veAAJwfUQpZOKfFYTDR RQCBPgZGBZQDCDSJxNQU2SO SIa5EDLqrrr4CGYsOGEZJCz EGBvWCIIGXHXFKe2PNrBAGE FELW7OFKBuDE5WF8lHCP3PX EELUEZLVTcDRWRCJJQWRw0R GVnaQSEiWem8SbWiLZAMKeI mRVDQK8CTIQNZDXxWCPVeky ryjPUjdMTdUG7gXKSKWS0YB TPCPMouRFGDA3sWTDFDPDhZ BFuWDGYGE5CdJ1LGX4tHS76 BIFxwYXJccGFyIEQuIFRSQU 0GEkLMB7CaQ45LL06aEC4FC 0VPWHAEPYUjTu4TXSpHVOWP OFMSJ8qCXjfssLQeGMDbExE tIENBVVRFUklaRUQgVElTU1 AREQlQWg3WSkDVSTLGJDnRV 6pfA7AAUWJnQ8JSO4KPGYRL NgJJXf2INSfeCZAsExw8IzQ hZMTZEHFOCJGILS5WB47UDA 1KWuPMMOhXMCWTE8IEBU4VB vWciFEsYXRtLLteYFEfIE6b VVRFUlVTLCBDRVJWSVgsIEJ DHOVZZDSMCBULGSzQU0QPNE 0tFAJBNIJmGP3PFH9CYFPPF CIqYFFSY6JMD7dKNH0JAVCZ I1jLZzmxUGAiuhVHMCXBIUI YAOTHHhnKY93ZMV7vBBODGZ DKFqENMYIYEY7KDMCHJFEBC vXYGI6NNLINBMnYSUzvIPnF YZQVVUYFN86PBMHRDVcJDFA NSMzyB1HOAHfPW52aZ32XWA 8TLRLLU33NXUNWYMFQQ8JFC 92VFIUlJdPLJVHSNM3BLenl YXIgICAgICAgIEJJTEFURVJ BTCBPVkFSSUVTIEFORCBGQU kNY3YDMW1aOJIUDPZygYApL MJkKuGnUOpXH4keX8HELDSq G8XLO8DLNISOKvSJWo7ZCOB NHMWAINZVEP7OW24WQL7KEs YPTIgSJSTTV2NNXJ9YGjCka DBeMTVeSbGmWKUrPD6KN8jS IG2DSRIIXe2PLMskL0RYCoT YXHUcW2AcYucJHTDWHqGTMQ 9WQVJJRVMsIEZBTExPUElBT iBUVUJFUywgXHBhclxsaTcy MFxmaTBcbGluNzIwICAgUEV BDIKHPfCTNJqqK49GJWXRFE QCOVZfCZQBRGZZAXDLS6QCQ DIXWPOVBB0XV0frEQRxbSwr XGxpbjAgICAgICAgIFVURVJ JCuJDUzZxD4HDXjlVIJEhlj w0AYXoATYECLsOFJlMSOKWC LGOAe2CQnVTIXMPZL4HHSRd VP3GJ3pJGA6FZMWVIRUCKzK aC3YNG3QCYEINYNdcACKuRb z2CoCcHGEDPDPYH2ZGZCTKF YUTUY0PQ3utDPPyUehfLGQn JhQbQWCHBT7GAIQCSJUXFYP SCGqTBRcKOFQhMnQQP2wRM1 VORCBPRiBBVFJPUEhJQyBFT kRPTUVUUklVTSBccGFyXHRh KtChSS6DZ30SBPXDNT3mT6j USCBMRUlPTVlPTUEgXHBhcl a5JOAfHTPLVrKEJBJDF2NBL EUgVVRFUklORSBDRVJWSVhc cGFyXHBhcmQgICAgICAgIFJ FL6BBI2oIXI5APQIYB1xTTe nvRCAtnILpCZ7jPSzZPE4UG nPAVGQUJCPYVEHiB6LAK1aQ T48OWIuQGWsqNUBXTA2LZJG QT9GRMHZOPWHQXvjZKJJZP9 5TXHBhclxmaTcyMCAgIElOV x1KMdzPBhCIKYWOK45AG96J FxYEKQPGYPMkAP1CUWTHJo7 FPNnfTPZVJDHUT59FXJPczr AtIFVOUkVNQVJLQUJMRSBDT 5yQMjxIDR9FN43WGQilAVBu ZWFIGAIUO2EQVSrPNMRBOaP DSv4RJUTTTvYBNlRuG6IjME nCZVRaSRcIESzdYm7OINFdE ERtEwpflZCbNCYbOPo4EDEh OSUPFu7ZXE9JKCHPT1kGUyq QQU8FUmjVJvxaED0PW3jQLY HuQoiqMSXXA9IloGYqNFAkI wPxDVQHA3VJCDNCB0aGGerB NK2OIfwPUkclOxWDDVYHZnL iYo9AEESZDJ1QJUBkwoSfBQ AgICAgQkxBRERFUiBBTkQgU CHUBtkQNBLEJhxHB63KMV2j pHIuLOMxTkZeSUhES5ssY6S FLMUgY9QQQ5SDQYOWXeQDWz 3QOOENKOHOHFUPEX7BU25KS F4JAhXENTdINIZMO9MYXB0M B0enKHWkvXEsTUOaLCGZIRN BYq2GBPCOYUdDZPLERNytZV oKPSNVZ378ZYFlmoh9VLAnP DWEPXtHXDvHPUIXACFMEj5G EaBOPTFIFS9DHCCdYITrtzh uNZTqCk8nL22FG40pZTRWOq VUIFJJTkdTIFgyLCBFWENJU 0lPTjpccGFyXHRhYiAtIFVO SjFXPUUEAXPYGWJDJ9vRNas QLF9KU65IFHguXGZyjCNjNZ 4dR7OID5XBMQvGUGobODAMM KELP49OVGNCHKMXWRUBKUZL IP8OJ90OFR9CNeBJZYlHPUH NM4RRLR5QJ7afIBEavDNcDM AuV7bBTD3FTFKBB4AGQ6dVQ IHAKVUILDIGEEwGFO8hkORw OTKikk17YHY9OnKmy0G3TJM 1YFHnPLCrg8ycRKZmvQHpLh EwMzNcZnRuYmpcdWMxXGRlZ tOxp7lqw817gHVvw2vlTUEy QcS4hZRiCRJciVZtV434OYP hSVccs3qxr7YcTWVurJKea6 G9CFTWxognlYe9zWmpK28cj 7W0RuooB2wrXOTwIUEvW0Cr FV8mEIJvFcf2WZN4JFD2NRC hVVAgE2WgKF1dFWWfdZZvWQ m4j6vpdFnlNESlNQK8q8ptE HyeyfCiFF3vyy7asTi5a7rl njZtOWGkJOZhmBJWSHGoO7K qoAgeKz1gbPi5pRrtJojuOA X6Sjf4VR7pls33ske4yTkmZ KZwubtuJrL3OOoaRZAuznmu YJy8PQxyVERveNR0SAKdtNX hL2RkPPMfCG7alyv3SCK1WI hrQLQuPnL5FIFbpQXlBIVsv JxvMZbyb815WAA3LsGyYM2f P1Fci4H8fC8cgPXrZEAxiFK nHvUlTTAwko6bhPHaPUewi3 CmOQB0gbQ1lOZnnCTdEBLdO xU0EKoeHZ7vxg96LIRmDCB8 dr0azWObfFhyuxVbkHMmJZn jD3NeCCYou340UDIoF0NySJ Buy8X6fkSuRkMjLXDtvKN2t bS0FYWcIS5eohpeb9waDJuf PBhuAUVaigH8uiQ9KYCcrRI xJ4GymU7eWOGrZI6hndhiz4 xsNZF7WIpsRROxOQS4KnZyZ KCfz9Odzlq6DoQbs7WquLHj SUxqI42sj846ZJFiwyWgR4d wbGFpblxwbGFpblxmMFxmcz X2NQTsJCyikeovIERlLHtdL 9hpXiOaSIRsaCneCDgzw5Ux XGYxXGZzMjJcdGFiXHRhYlx 7VCSkkRDpJWBcGxGeM7srad uhWqGKZVUow9jzW1suiQFRb ODqH1NqVYahnsJdVYttDJfr JwEwRLl2TB97HlUeGUQqdh3 9 SYNOPTIC REPORT (test OVARY or FALLOPIAN TUBE code = 5765) or PRIMARY PERITONEUMOVARY OR FALLOPIAN TUBE OR PRIMARY PERITONEUM - All [id number] Edition - Protocol posted: 07/05/2021 SPECIMEN Procedure: Total hysterectomy and bilateral salpingo-oophorectomy Procedure: Omentectomy Procedure: Peritoneal tumor debulking Hysterectomy Type: Abdominal Specimen Integrity: Not applicable Uterus Integrity: Intact TUMOR Tumor Site: Primary peritoneum Tumor Size: Cannot be determined: Largest nodular area in the omentum measured ~ 5 cm Histologic Type: High grade serous carcinoma Ovarian Surface Involvement: Present, right and left Fallopian Tube Surface Involvement: Present, right and left Other Tissue / Organ Involvement: Right ovary Other Tissue / Organ Involvement: Left ovary Other Tissue / Organ Involvement: Right fallopian tube Other Tissue / Organ Involvement: Left fallopian tube Other Tissue / Organ Involvement: Pelvic peritoneum Other Tissue / Organ Involvement: Omentum Other Tissue / Organ Involvement: Uterine serosa, pericolonic tissue, appendiceal serosa and mesoappendix Largest Extrapelvic Peritoneal Focus: Macroscopic (greater than 2 cm): Omentum Peritoneal / Ascitic Fluid Involvement: Not submitted / unknown Chemotherapy Response Score (CRS): CRS1 (no definite or minimal response) REGIONAL LYMPH NODES Regional Lymph Node Status: : Tumor present in regional lymph node(s) Number of Nodes with Metastasis Greater than 10 mm: 0 Number of Nodes with Metastasis 10 mm or Less (excluding isolated tumor cells): 1 Emery Site(s) with Tumor: Pericolonic Size of Largest Emery Metastatic Deposit: Less than: 5 mm Number of Lymph Nodes Examined: 3 Emery Site(s) Examined: Pelvic, NOS Emery Site(s) Examined: Pericolonic DISTANT METASTASIS PATHOLOGIC STAGE CLASSIFICATION (pTNM, AJCC 8th Edition) Reporting of pT, pN, and (when applicable) pM categories is based on information available to the pathologist at the time the report is issued. As per the AJCC (Chapter 1, 8th Ed.) it is the managing physician s responsibility to establish the final pathologic stage based upon all pertinent information, including but potentially not limited to this pathology report. TNM Descriptors: y (post-treatment) pT Category: pT3c pN Category: pN1a pM Category: pM1a CPT Code(s) (test code [id number] = 3357) [id number] UfcbXtez49xJQ8rN88FV6bN XTrZcP0AYYstgX3Oyo6QSFs GETpqUPdA650r2ncm1olqgX xqQE6eZrfPWCmxjdtJfZ8YW hdPGRmehjmBNd2JEkwIDNip CG5NNBtxYZaB1MxPZQcDH5j owx6PHS0CJkfJPGbNcE2EMF npFHpBITvoHxoXEkel369TS H0EhBwKYFjfcXsfEkybW1xX vYoVKFNVtX0QOSyKHfgMNyy PzQ1FQj6DjXcJzK1TSP9AOq hYBJnCr7uBTomCKamaPYlUI PrEJw5PcK3RDTijcMZIdG1Z RXsCIhbOEUxGA3rPLspOMf9 TCv6SlGsUzI1TXP6OEZ0Ioz jDVCiDf5dLPbrVCMuoAArME jbEBr7HkT3DMRqpx2= GROSS DESCRIPTION c3khmMLaGFMuzAX3GzYzWJM (test code = [id number] [id number]) MeltVncl29zJR6aX65VJ7yK WFvPpA7JWUncuD3Hoi2PONo MLHwsFQjX773s0aoh4uvgzB unBU5PKJrUGYeU7BxNT2eKV VqhRDsQ92ixZZeKUH5EIOvG HMyuKLjDMRbBIM0IULlcYRg Q3tzFYAiXW4aphrhILzfAWb sSGJlrAV1LYBdzCUaW5NgKA ZsQZyxGMKcfmi3PkBvXw9sx HQjvVluQIiqQNRjj9mgUXKy cTYzJOY1NYgqhOTgIXWmAXD xJOg3VEWqTYtafFPlAI3ipA ybHiytnNvaq8WrgGIlIHlqH IHkQJBwWQnwSAZgM2COXWWs VaN2NuI9JZEcDMw2OJs1LF8 BNhRxGDVjMTY8JwZwGWMqLK x5APtfRP7JYVP9QjG6IWk0A eX0ACFoTRLaAJXdXfXlMBYj WRhvTtWXwinupDIkFU2luKo wbGFpblxmczIwIEEuIFNvZn QhZEwac0ZnOEMUpUlvtx5iz VQcKSAsPgDgUS1dGIDjY5Tx dmVkIGZyZXNoIGZvciBpbnR dIA0mTPNajTp5OMEgz64kwQ d7FJYop77hgCQpABkiFLD5e FHlWGIfbNzerpHonwMiFN3z APOiY3Mwj5Hno53kuaFkZcR vABTeGWInk11mbMW9dQBgiE PnLM17qVHlXoDjjdWbEIMlj f0csL4cHSMrPID3LS4oXREo eZHuUTKxXlK6hJZkzOVdr2i 7mYKyOSgyjWL3FA8qxvxkc4 QzKbWuGVIbzmIdkvMcx7upI O1qUTUbYNYurZKxGHyqKSY6 Fo0smXZfMTAgqoEgpqDbpRL qa8RiBiSbmgGcNIKvUYf0t4 scYBqeRNRwi4RhjTVpTFPCN WIyIrotJMCutFMmYOzVh7ie kXnbj5SvgNIcZOrlXNEupMI mXBqfkG6nKcWtn9rtgDb0TO uxhkK3EOJtgq30DAzkMNDxU 8NjS1YuTOnbKTS3GSTrZeBg EYQkBT9AUrMfMSpQGNuvFfG 3DcC4UYz5VGHNQqCyScDwVi ghHObuZWRtEQy0QFi2XOvFK kZ5IVl4Rxo6CKFaYEOhDQcb SYm0WMKgVQsrgIAdNNGeDTP aBHovVSckO74uZlDcUAPGYc YVs9Z2UVWia8P9MAgrV5RsR XIuXHBhclxmczIwIEIuICBS RFQkeNSdEQOqfsKjp6BcXGj pbiBsYWJlbGVkIHdpdGggcG R0rBWhlDdfSP9vgTNfDMVdF 4Jzd6whcvEnkT0yBEQtXP5q GQLgo0U4XXZnc9J9IXmkn6U oZXIiIGFyZSAyIHllbGxvdy LhFVC5dYMmcMGseMJfg2Vyj 92nyzJ2uXZxRKGesWEvdynu AAMikAN4HdWwjRRgEMRwVEU zAc26JOzqDEV1LWAlB76wEC KAmQVjo1LrN7ngUV0hnXDwo 7FiqMDvyMlno2NxpGechqPz POLkGBYzb9RmKEglAMZgBDS pb6NxjAKzg2BzpHFwYSotjZ 89TSLwxIFqb2LiKIDka61gH SKqa1OsrSTkEQ7dVBSfHQHs LMisrGbaT6N1nRYkbC1pBAB oZXJlIGlzIGFuIGFyZWEgd2 p8cYHmUP9lVZKtRVZvYDGqU AGyIW0xFFNlLDSyiHXyypzk KYM6HRQrJYM6PERbE14nATL QhXIgN3E8KMT9baFrT9Mmr6 KyyGwsJH1nORXvSLSfLBZlL ZUqcMGmvEF1qcYeTAPkPcBk RsN0jSijYAGpCVAuMQ1xSV0 hPE8jMM19kBFeEDkzh1nbzf HiGPJgGOjdZA15jNLnFJInO RJRXRTzWFHohmXchEg3GWFr YBX9mG3pjkMqmfHqm6WbzHa 5uDSxSHGlVBHkoPdtj6LaFH SxllkvILRlX7IgaRrhlcUwq 1FzSyyjCCUwFkKdOhR2OCVe nGSrg1PhtXE9hDZwOOUcI6H hz84kKE4mNV0bMG31iZ6qVO TugZmxR3UoAILwkeHoXEYiJ AX7RSnxkDMeTBJ6ABPdHDqs UbJpjqQjPC43IBEvhbEpk9E nwBxtbcMqo2Syhl7giHltkl CzbyMqZETggZcyH0CbAMKka mYyHAWiCQD5EScwfKOlJWXi Ms8LDlE0GJCfLMt3iI7mJTd bsaRzqqVoCV60WYIpnfUvr6 PssCymwjQgs8Bmh03jbaV6t JacSZCjIBIcjcLqDPCzN9An d6B9lGLiKNXntkzdUYQjEyB wsQHnPSZkmnkzGQHxL2FeP7 OxzwYrmQWbOKKtkqOwh1aoS GW1BJMhmEXhtHCdWvCtMsbe MGH7f8ooABUcnGGkSQZ3DGn caWQgNTEwMDIgXFxkYiBPVl MfQjAnGsO2BZeyTHLxKUy1C AbqR3IDNIRdAMJ1CNH7YmQd WhD0IZv0LBEHGn7jMOS9SQI 0IGMjWJK2PkL8WRvxjSSsLD xcZmwgXFxmIEFyaWFsIFxcb jR9RDDvCuQhOu4nP85stBCP tIGdaWUyCI81mXKtEkolERL eRnIjWGsuAwTjGz2iVtRcSS v7APCpiH0lMw4tvLEfgB4zS QamIoHcLQEyk8z8lYR2jBZz eYP7sEHyrYurDV5znSFcTVQ tQ1Srv3hfjuEuiP1zMVTxYK 8pGZYdk8H3MIXpd1G9YYoia 3RoZXIiIGlzIGEgdGFuLXBp ejxvwZ82YZA2PQIpeDEtXUj 3KDu7ZuNyR94nqY0jzJHqI3 EwXSJePGWuOV3nwK8jNQWfJ CBjbSBpbiBkaWFtZXRlcikg k9j3aKExZSFfWyX5RFIoOBA 9KLCcQUSqmNXnzKAuH4zmAD WoUTRtBOJdML4pxGimBO0xI ShbRYKhag8pMLNbnmM4YK5i bTimvnTqkuCjm76kq6VjYDi udMjxeZDpnZnmo6YqhRP4OJ 6mu6uceKBumw4wsHkpsdKsK L4diW3oGWRhd09kiXXegxN6 dCYzNIIvAX1vLS5pRVtiNSr zZEX2LHJ6FYJnrSQna4uonc 4gIFRoZSBhcHBlbmRpeCBpc qWePOVoZWxqpINeGTA8rZ5p TNDdlT1avzZ0SHRwGXBxpN1 qNR55WINnM2WgNT8ioZLnmE RqHWH0nIHjNWibIbF8sDZtv Ewni0F0SJLjNZNnEX9nkHsf q3IyfZnjMQSauAEhVTq3MgM dPWdnWGz0xREnGYslAAEwqM U4IKLvVWKfIW31DCVzVhPuA DexAAirkKzcuXeyT3sdNVOv COlrRMDsBxAagZ3tWnEhibE xYI37DQCvyuDql4DuiQhmnl TmLOBiWKK3At0qiUMtCZ0la QToGOCbn3LbzcQ6LYSaJKLe p0UaDM0iODMdHSMyvSWqvW4 xzt7xsEGiECLzceYJgpifV0 3mUHipkJoyNOKYpnAlR1Fsc HIpiAbjZJmaaDKzY3dmPQHc cyfiJAMuV7HroGdmdlOep2H oOmguBFEtDaB7FGKpm4xfgY FmYT1bcujgzgSbvcAtRKTuA PAgUSVkyOYqY4BcYUA6kXGj QEJzGATdI5SkbAEcLOHrCbW VXVWpPJNoivJhfSd3EGShoy 9jybIvODA3jA8lcmR2zaDew mNsdWRlIGFyZWFzIHdpdGgg po0fdBssa8afSUZuqOZxLSD hOgMjW1LxBVuBt3ibbSsdw5 VjdGVuZFxwYXJccGFyZFxzb W7uQuYdk3gcbPh1WVuchiF4 OIXcdv42HZevBSRtV0BlJ7R pVZufLKD5LZJpRfYrQPYeDW 9CUtUbNIjHCMdtRsO4XmJ4N Xh3REQZVvFeXnWzOushEZem OhwiOJs4WLy2WNjPXpL2KAp 2Alc0ADthMFVkFRqgSXn8VB IgXFxmbCBcXGYgQXJpYWwgX WmoE16lUgRbMKHKFlFTe3A9 LWOfz9U1OSsxS5QrSTGzYYE hclxmczIwIEQuICBSZWNlaX KeXTCscvWey6IoZQmyxpIqX VHwuMMcIDnuzMpqpSD5wFCr eIrjVY6nyPMdIDGgT8Irm0s ufzHtkG9lHUCoKS6zVBAtd6 E5VQToc0A7EMkcg8OxQVPcJ FGwFQVsKVEdkg2whG2jXUBt EFRmo9zhGFBtp0A3OBWlcwI euEQtiDNxaQVpc6XpaZ2oZO AbFvS2RNLnMbB0NCVzJkYoo hFsYR7nORxwGN6fUQavOS7q IXCxWvFeH8OuM5rhXS6qpRX dw6DjoEa9uNWmPEsuWMGhuJ 5pcK7cT6Brl3M1xTLrTDNnw 9eajNydp4DfzBNnDHkrDCLy gJBoIWlyoY2aTuAco9uztIf 2KHoglbR9KOHnxs16UMbxEL CtO2ScI3XsOMjyPAI8CQBpY dKgJNHkGO7OCvPgGEiAEKiy RkI5AtM3CDt3RAMTGgVtCvA lXorvCCu2ORlfFOd9CRz0YK iDOsR3PQp6Pyg0ReelDEVlE XbzYXs6SILuHTgqjGQkVNCt ASTxKNyeNJwoY75sMuWhTGA OKgHRwQUzaHXqdh8XBWW9eA guXHBhclxmczIwIEUuICBSZ HHweQKyETHbjeQvt4VxGPlf biBsYWJlbGVkIHdpdGggcGF 6fKAxeAyeQZ8icQCuRXWyB3 Dsi1chorBieJ0qGOXfKU0oQ NM0mQIjgMYfw0k4eFCzLHE7 aXgiIGlzIGEgaHlzdGVyZWN 1q175CREdMOHre8rvR4EkfQ jqr3VkI9thNO5vfCNdi2Jwz X2oNMS7QGtjBKDvZLA6MEHe T38oZNk1h3dbrAmrft1kJMB wB7eyz3HzDD0om2cpoZZfJR FbKHDlzthuWOBgzR8ddMLnL AJqwTb0WOHivC04UbixwR9m DRymdrCbMOpgWEY8yYIcuZR bAJJwx3LxXTktyIlol8mzPD JvNESjPUA3tE0jLC1jTVW3h lBxHAA8TSGsEHlfQCglicp2 aCBhbmQgNSBjbSBpbiBkaWF zGQVtugP2tCJzBYZ0cUPkgA KiBG7uc9XatFFavL4iQHGoM SBtZXNlbnRlcnkgZGlzcGxh aXRvtCDypSahrDUwy3BtgWJ dsdTsBICdpt81xVs0JEFzl5 L2jGZxUhLjTPenw7Kxoy3hl WxlcyBhcmUgYWxzbyBwcmVz VU70BH5lMREyZDRxWKDwq0L iz7BiyOgfRGHrj5ZtLhDqLB otFRKrok6vSPPbseF8BB5ir MgwyvZmzwJbfVPcPM6jwJ0p obGtvPYcwW6hyPdgf8i8yEV rimEjuKIsZLRnvifas4TikN VeFo8cFMOti79zWcBhYMrdU QRgn0YgcYQhi3X3nU4dNX1k OKLhEKVqn6ydmWJqhqHktSL xG0dkUZS2pdT1vOSpaF6txZ TcsD0rEDA0yfSvY0Vyb3Ajv KlsGKT4YRC7csI2gZSdLCCn bWUgdmlzdWFsaXplZCBhZGh wi5xoluKfYXIDiNBnNm38GF dpgAJaq3CldpEeAMBfPPYsz 1AiEIvyYFF2lwKantTgK6Io NR7qVxEdYTqhdWS2XUDaLPj iTEXdx29tujXjc5FbyNLmAt O1eRVoAxCiMGDxYDNkIAKpq BEkz7StMLtbdLgivNPevYFb TWYbffwgZ75td19dRjKzy1a wyjVkjfFhg01uepNwjMt0MX zjMGQbFKJwGOS3cN2dFCrab GggZmxhdHRlbmluZyBpbiB0 sSNwm1ralU1vVUPsy6apkc9 cTS5xFWedc3zxmxRdXFRcNC ntFL55hWWbKBTcgX6tdPijA IFryK1rwPQojSCdu9UgVzBi RHVlIHRvIHRoZSBleHRlbnN jndHzAKZsXFBveuZcXB5gNK ChXSC0yUSgjUJrcD3mcSpwW MXjS4Z5gZO8fFAldVLmuCNh rpKlwJGhXFIbRBB8dZ6sVCo eMVBjARSwIAH2ekWaTEHns6 Ofj9CrYR3ykDBrAVAlcoKKv QPtsBZuhwWxZA7jFPF3hqCg QRjcKsLkcUIsQh4PNCkzNw0 fYECwUWeSRWThTKujJXQ4Bf AsV66xMOJbJFHtJPkbmTsyQ S9sKHW6WRKlHIRjY9Exvvx7 GZ4tNKZ6lzouUvYnTcYxhKF fEeCsY70tm2m1gNLkSXAaI5 2ch1jwdJurt6RzQ6DeqmvtP Idwz6MbLPYwDHGaxDPeP0ap ZCBiaWxhdGVyYWwgYWRuZXh yCePXkIGcE82mq21lfKUiOH ojRTH4mIqoDLB2HANfGHFkt D8keIfiHIA1NJF3hrLgvzH8 oCRnwI8roZDbkF2eXFR4ueR rD7MmBVICpXMoAV14XXTkk5 IgdXRlcnVzIGhhcyBhbiBhd WXxG5gnEARnlFAuKOWpHCCy nxl1v47iIUanxNipe6XaPIV cCSGrxYBwdMVvTFDeu6pgCD Bie1Nek0Dtf7g3nBUtaMo5y TXgILI4LI9jw5ileDYhmw1t oLhueo8oLEGquZKwzXUxnSQ lvnX8uMDpuyEfVDJkNBW5SC MvcPQ0FCRmrtN3zfDpkSFoa ZJ1XSJhrZIuONQzdfsbv6Fn s2MuBI0iYSUpMAQwcyZnwsg wqdS0eNUkjJUgHGZLgEKfjY RlcnVzIGlzIGJpdmFsdmVkI ZsdoO6hBY89DZUle6CsQB5y VPEgr0PhiwjsrwUlWCb7LPP wuC4cWBsepDbgwLBeGKDkPY Q1FVUbZsYmzTYywZVjZNJfq eule6IcsTXgzTF3g7K2SUNb dXRlcmluZSBjYXZpdHkuIEE lpEYwY2OpsXOaRWvra3DrGX DugJ05jnPslQNxbUCjECIaJ DMgeCAyLjUgeCAyIGNtIGlz ETgwUV72jXViFBFyoJ2ecYj tHBFgG8b2KIE0JOZ8baOhfW B3h1P2hZ2wVCRaDCVtv8N9E ZTsh3VrtGFzeqSiBxSEpEXm dXRlcmluZSBjYXZpdHkgaXM gdGFuLXdoaXRlIHdpdGggbX RmbLqniLTcpGFbLI1vSOZuG FMuhYtjx9DcbM77gAD2oLMd K3F9oEC5VhFFkBEfUMPbqvP tURFuJnP1AMZxT58yUIQlae Z3zSd1BEQekDDvi7VkVMXmj 8NtKbdaFWRkIGQmK7YkDIEq STPqr0i0zYYnsNPlH4quUJM 5qcU8yINpr2KpHICyz5IgzW 7swJzqyrCfZyW5lKXvLE8qf 51olNQpfD9rPLCjMLSlegGb qEK8ygj8uTQyqbFlTCBlyFm lvlizxGUexVjrAB2gFSjrWN KkqZGiaJ7zPJZ1VIQ2mvYoq cOxOXF5jG1dAEWwhH0eJKao cGxheSBhIDEuOCBjbSBteW9 tZXRyaXVtLlxwYXJccGFyIF VoWZWxFLH1DFT8oCWfcUTqH SNoijZ3NFTck59neWH9miLe JpYoNFVbnUZmZgZfG36tXwx kShHfBUJiDVRgIOgdd6ZbYG 4gdHViZSBhbmQgYSAzLjgge DArBiUqqKNdYWTfAI34VGX6 LiAgVGhlIGZhbGxvcGlhbiB 9cKNcDZMiaa5jFIEweuC9GE 8nuWrxesX9gHLuEY92kPVgp KodPODnnm62oPm3MMXje5L7 bGVzLiBJdCBpcyBzZXJpYWx ieMVbAAC3wV1lPGJpsX8zCJ xwjSdykZWvYFLikoCtxV81K Yq4mSNiUbYjJRhyXAuzLkQs q1ZwkrkglABmr2VdbDYdl3c mgISoKKCuQUC9xTUpTPPufR FuIHdoaXRlIGFwcGVhcmFuY 0UsKOa9UAkzKDLxj2OdtSDg BDMkIUNcb1CjBJuyNXU8CY3 seK5fjATghC87RZC9eAExvP JmYWNlIHdpdGggbXVsdGlwb GGmaGAmVCw8pADetGvlf0oj fPXiWNtpbXBdFBnua8fjcmB mSJADftVjBXYzawm7oMAhME DagcZ2nlCeeJFxyR7ywEWdk MWetmJoItieWS5qhVSpRXad yeXzWVpuFOKdG7y8FJPolyX 5ARDxphOgl9Rto6EblQ4cOY FityZpIeIBuUTiviDut9EuG CBlbWJlZGRlZCBpbiBhZGhl g8eladXhAN7yQBYzkoo5x62 lsV2dYN2oFGEmoiFkc0FfTE 7iNSIaJSX5pCSzeSQuJDUhI PC8KABxODThKVWacZrtlOpd qwY6nICiRTEqNCOhgfFgzbI bpRSyPCKxbHAfrndcPM28GX ipYBEafFSaCM3zIZEnGZXaO YQgHGKygS8zQUElLLueB4Nt LB93jt1nRWXyuztstNJlHHD 4kO0oqgSgewMbkHKzXf8riO SpZCXsLQKgg4yipLfqBD16M IOpOY2qsPQnGS7coJuuUZGy aoEcyYIwICOwoTI1oE5wKPT iTPQsSZPaKVcfl5timoGjKK ShlAfdyDzogkA9eDSsXBp9c BDmCHUqPERnt1afpS6hULFa GQTguBYmz0FkFhInNAWpYnD 3lIEuf7NvzuwsgIDhfJTmDL Sacpioa5u7dJJiMPftaZY9Q C2tsrtsR0O1VGW6qlDiI5Sx JV8hXY5yDTqvWB14vJJsHOJ vMTHrz1LlaQHmqEN5GQXxYa XwKBhbCLJkbYrlhDmezvR7v IOaXHEzyQZoknBzI99eqe0p sLAoQKCwooB7aZZuNVEfABF zm21lFYUpVCJ0lOPhTabxMu TfUMJsdiCgp0TvO2Yid4Bbt SBpZGVudGlmaWFibGUuICBU yHIvc7Egq2UiRAixBAMtxe2 qzE4yJAiluZkinXZcNTmemF YoWM2jQHTkPBKjIA3aXVRcC SSvvW9ksqTsfjVurZ6tc8bo yV4sBFErhkPSQGVnDZUlivQ dsVf5UDPwTUT6eU2bihXlpk Orb3JfpHl7nHJfCaUVsB37o 9okPANefbLgntWicSHlYT3c z8JblRxlMTAwLVZjwWRlSvH ukYXwHRPfthHBxoclX24cNX mzTSxaUZBsA7ZzhwvpMFPgr 5WghQGya0ymqtcoJW6lepjt tlwddQ3fFVKxfXSftCWwtKb aAFcbM12db04dDyFpLPZctL 5ccGFyIEdyZWVuLWFudGVya N9cFXD4DSW6f5uppN8qWVQl OXToOGUap6QchoxecpInCVD 4xVpzvPKzWJGacfNZQHB7iW 1tAPIuDTT6PCxlikPnLKGkf TMikUagEYdxL75wz29sLxEm HYScmT0wbSbcEZVNNv0veLP 9BEtiK49ws48kWsIbZNNztQ 2ihPPmPLBaXCGzvJYau8Nii DL4jEBsWNSuS6Qhi37ug6Pd w7yrxX5xXNRmd5qifcnfmV0 dAZH3KDW8OWY1fEwdjEulW4 alSUCsZGXhM6Bjx70ih9QqH F27WRPww9SnhVNgjmRvDUMu aeSUJBHzERVpFYA3lNjybIl nC4ebDDQvACXjP4Njm16ph2 RdyX0yoCJjmW4zFXC3OZE1q oS3hRLtTPDqiAOxYY71QAEp w0PlDHOdyuQXFLStAKD1CUO gKHp0bS8wPVifRqBclI80xR pee72sm7Gec5ZckUamxcKgV eWkg4N5QNJez3AesRUfwkHk IHdpdGggYWRoZXJlbnQgYm9 1MCsqlEWjVQCoQp4wUJX5uf R5hJT7ERXavE0hqQKpuN8ee I4esRJexX0zQYV1IUO6o8dd RRJiGKX9JVIouCLio3FnmUM 1sEHaBCJpM1Nfm20he4TzDK 37PYVce7BjE9Qgdqe0KPxdk cMiOZJ8WVWstIBjz1BdzVR0 sMNkURFjC4Rqs66ut9TbsF5 znSIboB4wKUAbciSgzEnjCG AvIXMtLNTfiMPfe5XkcKH6g QTyWPNbM0Bwm71bTL8sNZfz DuNqSwOdrW2bbQHpTDZ7EmY iBC0zEZGfvXZbxJMaQgrwNN I1VRYqcZtyJRHPCoWsLQGrK DdnKnXuk9RqunyxGynmLJM8 NAUiuRBmYVOfEd4iMM0yFZO oLDJ6CZ3nh4kqpfalCISiKP FgOHqtojSqJUT6RVUdL5k3Z DDpzHiphWfeuoC0bPWkASUo QOTlo8IjlDDjREVasW7ynll nLYkqwbSoDLU5BFChUzVowG dodCBvdmFyeSBzZXJpYWxse BKsTOD4oW3cMANkGABsKX5J UcFtTV6wHCPYOsRvCpVzLIE aCELaliJhM6VefEDig0CrzP xpfhYqRFIockBZHjWmZYC6G SDgb4UwVplgANWugCNptC1k etIyALYxJNMkU9u9GP84DLQ 1YOJircXBXuFuMUN3PCRpmy 04tAw9NGFrr5N2uETcQX6eN HLvqiy4s65fbF9ucQCtOIRm CL1ub6Q6fOQxaL4fbFKfsJE tsuF6xQLzqWVtADI1QS9BFO SoLlisNQFusyQuDTTkKON6y A3sVWsrfIafjKYcSUwajFPn SX9fOJEyIVCdjMZkATLwdhA OXGclDBYuE9UkF6NvpaIkhR QiGWAprqZwm9hgRAL2AOLgh KIbfZNeZiGsTvdnACK3a0pz CYAcfNVjSFN4BDpksSKrPWV wMDIgXFxkYiBPVlIgIiBaUj T9GYbvWPIzQIe3BYhuH3XCM JWiSFZ6BVT9TDLwPkF0KNt5 MYIPYc5uGZX8AVV6Eso6AHP 0TsX7CCcjiODjFKoeVmuyVO xaYDHlpPInSQadzuJ7KZWxO aWaOo6kYJDwrxIsGLevG5Pw ekw6TwdaZGPcMvDzOAmlKzH bOi6sEqCkCOa4RLYefU1sHw 6vzJBxgW7isTZkBJpeJWO2t XOoQNQtvHxgqhRfrtErSD5b HEUeH0Cvz9Zxx91dtlFyHuG dORQtEVXvLzKxR0wlq7HjIT klQ2DvKB91SmSvpxIbTTqhc YM3MSyqTQ78KFWbRZDftj6k gC8qONLjfFI7uNMgUYMznNf jF3Nhw1Vbx64kbPC2gTDydG Pzt0y4cVOibkLmfLKyX9fcT PKdlHCfsQCoGfmuan46hiPl sQAeDCMtWpS9nAEtxWEgkKL ud9MacG8dTVZnAtF8UAXxEu 7oAABjQSGrhLWvby0piLSql PDuSLDoAZiySJMso387yTJ0 hUJeJQ9xNKqop6HywTzhuFB pvqJzBypxNanfQR9nJDLtWZ ZwOVJJnIWuGYi8TVUnRCdru 3VyZmFjZSBpcyBpbmtlZCBh zdUka6RuI2bqOQ4tsPIyn1X uuCTntCpmx2BkjTmdfqKxTG OnFBTpq2GeJOppQON5XPlgt 0yqTuF9rUggN6K7GQK2gcJw W8TrNH9tRZTlyDXnGDxkhGV kGHEuEsEnpNSzck8yrLcmFE 4eYND3rfupEdJ3PsNpsXOwM jFisXVjOuKeT99kYVSHABHo MITjvqFpkIv3AEVwNYT5iA4 qkrZgscSkv0JlkKz8yVHfCi ScfBDoQOQlsbKLycltP80cH UztkPboLOAEpBLcACF3xRAv pjEpPOS1uwIcJ8BhqGWfDQX ggyODNSD0hK0tZASkFWW6YW PzdpBSGC0OVSrlgvUkixNlB B60FJXamrTfh3XyyEpqkkWr o7IyaXbcp0DuTIAzAAwfG8q 2IWCwxYxwMVJtah22iFg7AS Mrw6P0qAFovAWuENL2PuEJS XTtjEcwhqKcOHRxoNMri9Zu fKJ7eZDqAXCzQ4Uwu52qVA8 wOU8xASD6VHXdgYXqw1HnNY Gmz3P8SMyfELUzV4JdV1Dzb bOjnLCkRASaidAro0anPPO1 XHNsbXVsdDBcZnMxNlxwYXJ 5m7mkFSIwqUNlHFR9LNlmmA QgNTEwMDIgXFxkYiBPVlIgI jCfHnA5ZHmeVOQeKTs5XMfn W2MSHXXpQFQ7KQMjBTi1ArV 5WNo1IILQUu8wCPX3JnA6AX feODC5QeU8ABvbhLKzGTctL mwgXFxmIEFyaWFsIFxcbmN9 DUQvDbMuZ4QwSMcwDUFhNtJ dSQxah2JcTMQWyIwqpn5gzQ NyYJMdYkSeRb3wEMYnS5Epm uVfKIgvCLGnpj7ifDiiTYhb TtBfKMTru2d1tQMyJSTgRF5 5I1HylmCaSEzoJQJmSARwvU 1zHM21zJJhdaAslnKtVcAyK aPdaRqci2FhUSEsuTtdzkRe YXJlIDIgdGFuLXBpbmsgdW5 zvshiftHzICIxmK3qvDRqSK beBI84tvSjJsKjt3cndthhG BJll8U1OOMiSZKfuMUfudme Sb78ZEqoJC69HVmiIQCsvuQ eCY16QNvyAF03ODqhLWMgtW 3wXKFeLCWecFEyq1QveMIqg NIoZTJrcfbwc6a0jAYmkaKm QHBcz57vVsYnNh3wzCEqd2C zIGFyZSBpZGVudGlmaWVkLi UqF6WgT0qbJF2pqEGvz1Kkw Hw1gOCyERtkFEJhaT1myB5z W7Sfs4D6rCHpOgErNyLmDOO caogkYCEnXeI0TMYtmCKiVT V7VX6pgZjlOHZbW5DwM0Hkh eC4ISPlrq4= INTRAOPERATIVE c0ypwFBuVWAgrGKYRYUgUbb CONSULTATION (test gxaCrFRWctCKrX2FgtvoeDM code = [id number]) khWH0aSM7sxUgzcQDofTZuJ E2UZMUcSzJdFGXogLFxxpLb SdMkCLHvhXZtpYB1GJReWA7 bxlluDCcoBRpiNFJhypQ5GF BbhMUwR2WgZMXyNR9jhbuoF IY5QFeqxE3gvoOLBficZw8x dHRibHtcZjFcZmNoYXJzZXQ kEJNgfJliETIcJKq9rJ8AJs izDPR5MDQPClhkHZZfDA5Yp 7wbKEKdcMPkKWX8IToyiKTl VATuBRHoRCi0IIGyOCoobIE aUW7vxQwdMzylvJtkx8AgjW BcXGlkIDUxMDAyIFxcZGIgI V8CUdIsTTyUOUkxPdE9XwH6 EFs8ATCOMsPaXpGvCosgGZM 1BqcbVCz8SVh3VWfGYtW4KR mdAlOsMyDzDZTeRYwyFYk3K DIgXFxmIEFyaWFsIFxcZmwg QWupS03hxDmitP0uCI0kF78 fbXWGaAMmnYLeYN40iUHfBt odVGOuAIbyZUUfG20ya7VAs 0YdLR9CABv4njGpmeaaxN3i REQbxkRgXLxgiARtJ2adTjK bZDQMA4GjGiNsRPkGWXtARO dNLCBSSUdIVCwgUEVSSVRPT bOQKHSWW9SRMOZbFARIY4tE UH7TWjuhnY5uHUOeIHDsEIV hINQbG2SMTGbFZU6QTfZSDC ApDk9ZEKXJFCuAH5QMMETzJ 3WlE0EPD4jHU58TJaHvEV8N RSBUSVNTVUUgUkVRVUVTVEV EXHBhciANClxwYXIgDQpSZX B0rJPwWDNzqF4dyMMhVYFnQ LDgFtDPl1W3XMdlpzRqrYQ9 HuVvVSICRQcevBmjwC2mCFO vR26hj5PWp2AlXVVoYTljj2 uliVqdt7EuvICtGJjjSAMjq MElWCntoE2tYgJnh0ahjVa2 URvthwK5AAMqfn6SXgeptU1 rUkArw6odeXj7RUEXQqvfxh V0k8rljRcvq5KapKJjTQ1LJ n0= MICROSCOPIC z4hqwSYsDTNxmIP1ThHhGBK DESCRIPTION (test code [id number] = 3371) KmbyCszt33gKI0rJ49IS0hJ QCeEkN9QOYntsC1Qxt2VDWd BCFpnHCvK787p8lpb6rpufD rdZV2qFqcXJQppdngEtQ6TE tvNKIityovISq3DDqiQPKyt OO4NXLpvPQvI8OeSPIaPR8o spq6EZV3XCkjVJKyAxE0XBG pvCQqKLUdpMpfTNlww694TM S6EzSqIORdjmYjlAxeiS3mT ePySPQYRRLtr9DvYFMnGCOu clxwYXJkXHBhcn0= SPECIAL STUDIES (test l6medARqBVJycBE4VmZiZSZ code = 3376) xf6sov7GxcILoxHHnZRoptO TkzlIswz87bDT3zE14MX4dA HOlZdH3BYEqocX1Eux8SZDq WWSbtGXlG423QSXjRURxqLl raoc5eS80MDKdcA2srMVoNY isynUiUErffoIiloWuAmt6T RB4pDndSSTkfymjJzN8QJqi EYZufbrwQLz6FFtmZIZpdNF 6XFYjfFHdQ8FsSHKiYI9ady e8XHU8GYpfHYFvBrE3FFTen TYbBCEhpJvoPHbsj608NWR4 IzQhDACkkzTkjPeweX3bPbX iJRjbQlFwHI7vY0ZxNFQbfp FhlZVmCLrewHBgp9L1AYvnd sSilVdddGivoFSfMc8wxGWz d6XiiYC0ZWD5YRFzGqJvSRZ kfI3koGEgOUdrXOPfWA1iLO ffEYH0iQ5hLEArgOywABDtJ AUwd3VegKd6BITlQfGQPVyv XLOlolSwY0EdGZupUP6gZIA vx2kaCJJrzkZjynCrnPJxFF 24IOBmdRBbROVqtD3gRtVhy GFyXGZzMThccGFyXGZzMjBc I8SrSBNam8KzAUL5BAZrELV fMIY0TDPnDEB3aM0tPPHnoY m3oZBrkSM4FOKjhdMpnxQkb Rmhonxrl2S4ACvonu5enCYf XHBhcmRcZjFcZnMxOFxjZjF ccGFyIFRoZSBpbnRlcnByZX IuiLukacNfLkJ3oNdbJXSxt 6FalW3ayMKdJVWxqEqjNJPk QZSlWeYtmE53xn2cpDY3b0S uKC6jx6BkrRZnghOokMMzsJ YsUDJ8MFuaia2ntXLxWAMqa eDNo566qu6qXTSfpFVlrzNR lGYyaM1uRGqiFKyjYKkrtQX bRUqpv1fvSSKyz1v8qMPgSL FgviRdk0etKLkmorEnEWIdn HIlhKQaJHTfw65mACxwvZnz sXsfRMIrh3MwtRvuj9KyPzG sMYlvm5RfY65glAYhvDKtnM mkYHNxvcQmTMIwt95od0vvQ IMlFtH7iUPhsWB2vPBoqPXa d7DvcJxqUQYir1vrNBZyhc1 kcalqkAIly4JfoB1jpkrgAB uxfPPoghYwRFCwp8d0xMMeC EUdJDRbKTzhiYk9TSKht722 tq7sonT4qBXoDHL3FDomYMU sZSBhcmUgZXZhbHVhdGVkXH ZcyiVjMQRjsiTIdF24nf7la PZ2a1NaQG8kr4WozOZ3IFRe bzjaMPkqmPLtqKrhCtQ6LJL fuUPlTt7ttEAgESM0LGHcvA wnvkYUnX5hIRFdLHw1KELuH nQqFffdtoRMBEVaC7JvMAVv xiWvjxgbWSN2xP6eg5d8GDb dKy3xWVRpnqgna9nvslIkwL Ood0QmYTXnexNms0VfIJOyt jLwsFNnAVFpzlViwf0gmmKo YBBaNOBhE9InlmezvWpolkS 3ZXJlIGRldGVybWluZWQuIE h8RJwcbwMjk5HmBeObnsYkg LBuclXuNL6fBIQdiVBfcjHo QFR3VLJzCAASUsUcFLJnp3Z dSJ6cJNCzhFmmVJNrrV5jd7 JyBKSsn58aDGGkLUYERYVjh GFzIGRldGVybWluZWQgdGhh mGOubSRcIJAiJHUiAL7xWIL kkgAxyZYdy9CchVMqdhHzq5 SxlsRcJJBiYKD4WyDEyMEju XJniHTpamE2z4EkRVIbqeAa uDnioPCfwMNaqPAgq4Klhq8 bPHZbn6tceZtsGZ7leNTjEK ByZWdhcmRlZCBhcyBpbnZlc 5PaV5N7uV7wBVjkc7BaSn5x THRzi2JzfaTjFxDHxSefZSo kRw8cLWMeusbpzBQnW1ZxpP lmaWVkIHVuZGVyIHRoZSBDb AibqKMbmGMZSFPsnzA1m6A5 NKqxkASitqAvKU09KCSvFE1 ktNRqvEShm9NhBBy2COXsL1 iJOM98UYnuLKLbaBEviNyjw KTsTMVrTPEcoeXykx2msZwv aIQkf63dfHO0aJL6KYTebC5 sT4HvYNadQz6kXXXtfwetaS FfkTopSf3ktMQhbV== [facility] 12:53:55 Test Item Value Reference Range Interpretation Comments Case Report (test code Surgical Pathology = 104) Report Case: [id number] Authorizing Provider: Ronaldo Owens, Collected: 03/07/2022 09:04 AM Ordering Location: [facility] Received: 03/07/2022 09:10 AM SERVICES Pathologist: Kelly Adams MD Specimens: A) - Soft Tissue, Other, right diaphragm peritoneal nodule B) - Soft Tissue, Other, omentum C) - Soft Tissue, Other, appendix D) - Soft Tissue, Other, transverse colon mesenteric nodule E) - Uterus w/Cervix, uterus,cervix,rectosigm oid ,bilateral tubes and ovaries,bladder peritoneum and pelvic peritoneum F) - Uterus w/Cervix, falciform ligament G) - Soft Tissue, Other, procto donut rings x2 DIAGNOSIS (test code = [id number]) uZzEwMzNcZnRuYmpcdWMxIH tccnRmMVxlcGljOTYwMVxhb dEsJBBpzSYsB1CuzdqeIYvv BH2kIK4xyJdntKVwaELbMED yVuXvo6niy845wGVzy4yqPE KNoqcozHt8pLgiC16yu3B6G nstV86lsLJpOFX9MWCbPVIu iMQlGUSdHMT1LKKybKStQ6e eQHAdEL0xnkolMIzsGOluDR OujEP6DZKzrJMdG0VgZTMhF CaiVYSyvlx7NqIaXl7dkBWz eTcyMFxwYXJkXHBsYWluXGZ nAwFiAZ4aBOFIKRMHKqEXTM wgUklHSFQgRElBUEhSQUdNI W9UDBTZDUnnURlTBEMAV645 TFYsvik3MQLtVCYTQGaMGZg UGZLVBDJRYc0XSeDAEYFLCI 7TMFHrL6xIKKNCM9DCCF6LN RQCLRYkT0GIY1qCAYYBUNqT TlNccGFyXHBhciBCLiBPTUV TSRKFNLRNOMPIEVMKCN8UQY fxuEXmPYAhZqNzSRfUQ8rxV 1MLBZQtE1DDR9JIPLSIMjLX Ee3PLCJQPQTLWTVERX2BZ41 YYO8IGaTEDNgLBNCEQ2YGQD 7IX2xfVMKowALeESBmNYUFS FPSFXlVLHLMSWAROsJDK7ER NUi2FEKtwsr6HMWcKXXNQXa OMCwOEXNYCGWTZo4TEkILYL IHFD5SFJEuTO8LE3lDIS7TP YKFORVWPToEURVOGSMJWx8V RNmkNZShZhl5IgFmASESQlF oGEQZM3FQNNCYXQhKLWJikj qkuNCatQBjJH6fADTGKL5NZ ZMGWVepAFSEV8zBQOAKZLaR EEoKYQWTG7RkX2XEJ3hHU18 BIFxwYXJccGFyIEQuIFRSQU 6HBiFEK8EvM04ZK49nVB2DT 1LORDXYRUOoMl9QDHlBKDJM VCXHN6fBGnwubKArICKjRcS tIENBVVRFUklaRUQgVElTU1 XURWmBMk4RGqUJQTCBXIxES 2miO8ILEDHyJ1QNG0NKKCSI AlJSIp2ZCIugRJQsFaj2QjB tMIWKYMJBVNHGIV0ZG59FAH 2WWzRGVAbFLHCRX8VGQU4TZ oRgnCRyEGYcEYkzIZAnIG8v VVRFUlVTLCBDRVJWSVgsIEJ IEJDBQZCMEHZFSTxYA6LIUJ 1jWGWVEOVbUM8ZSI8UZUECQ DAzVNMQE7GIR5lPWC6BWXIJ X3pGAotlXRIlwtTTPVCURJX TKUWZXbzXR95WSK9vQZZQNY FTQpSSVSZAYW9LQZVDMDFQW hHNBP8EEUUAQJtNNSivUAhI VDVGOGVYU20PMQVLQMiAJQV WEMqfN8JYBHtEE19uC20NNR 9AZJGAP55ISHWOPTMQI7IIJ 29RGDEtPfCZRXNXPB7IQjtd YXIgICAgICAgIEJJTEFURVJ BTCBPVkFSSUVTIEFORCBGQU gGG6SVDQ5hFSGZRJXesRYdK GCfGgFtBJqWK9urD0YIPIBt O8XGN5FXWKENJoNSYa9XJUS EQYPOZGGIXB3GG70DBF9UKt YRHQgDFRYTL4OOLK9TSaJgg QSyYAGxZdUfAWOqDL5DL3iM VC1LKUBWZv7ATVnwW3BROyE GGGYwP4FzKksTAUFDDpZKEQ 9WQVJJRVMsIEZBTExPUElBT iBUVUJFUywgXHBhclxsaTcy MFxmaTBcbGluNzIwICAgUEV JYHPSZzXPSXaaL68AIMQZFF ZTLFWmWZZTHZSBATWME7RLV AYVVYSPKK2NJ3adRTLnzZfs XGxpbjAgICAgICAgIFVURVJ UCjGPRqOfU5JDLlhJWKQosv s1JGWmYWAYYBhMKRhZYGMYO JOQSh9EJfFYUTNOMC6PGVTe EK5PA4hJJM7SZFPWHLSIRkQ oA4YHE3FPOJPLMFlcLEVbMn o1OlKdMJSWABSXY4AHMIVUY PVEPQ2IJ9epBIHhRxyzWYJo MyFgEZWUQU6QNJPLQCBGFLR OFRjYCQdVMEWcYeLKX5tWN6 VORCBPRiBBVFJPUEhJQyBFT kRPTUVUUklVTSBccGFyXHRh TyPsVT0ZQ90IEVFBHX3pG7d USCBMRUlPTVlPTUEgXHBhcl v0EZMjRTVGYxTUMXFWM9KIP EUgVVRFUklORSBDRVJWSVhc cGFyXHBhcmQgICAgICAgIFJ AG8DXR9zWKG1SAWWRC2hEOv miBLClkSFaKN0jRKzPRV7QT pGRUQUQUBIGJGGlM8UKR4iP K79XKBbXKZacLMPHON2LRZK LO8PXIKCPMZGNVqoLEUYEU3 5TXHBhclxmaTcyMCAgIElOV h7DEzlCLaEIXYVCM59JJ60P XbVQLMDCMRBoMV1ZCTQUIy0 OCSymIFMNNJINN76GNZEfkp AtIFVOUkVNQVJLQUJMRSBDT 3uOColBJV3IQ05TEOvaHHEf NWHTRTBSB0XDIEzDVNMKAeS RBt9PAWHORuDKZeAtP0OnKX cFOPOmGTnKJOhkKy1ANFLqE NJzUrrpqHPfMRJxCHh4OAJl QXKJGz8LMJ7MTURTW3qQUcu VKQ8SAoxGLqxxCV3YG2vFJC GrWayeAEPOZ2JxtUIwIKUdU hToHYSAU8VNRKUPO6nFUyvE UL9AXmtAWlfvFpAVIUODVfH nQp5RJKGBEK5JVKZjecHuAV AgICAgQkxBRERFUiBBTkQgU FBWFtmJWQOPSyyWN87UUN5w rAVqXNBxYgLkCZyYF9ewE9I DXSJjD7IXJ2JSQBDRCqPKCi 6XNXABWYCUFNWVGO4EF03KU Q7HDhXUILuJBNFBC4SYWC9B M6jtAKOdnXFwTGDePVFGDPG AUu7MUOSCBMtMZMQGBHroTU zDSGJKJ747PBWagsx3HEQhJ FLDHBkURDgYSDRLFZNGBo3R GyCILSGBYN4WKSFiBWMsbcn wIUVrMt9iO03GO30aEMZDYp VUIFJJTkdTIFgyLCBFWENJU 0lPTjpccGFyXHRhYiAtIFVO JvNFODDDLYVRQPYGE3oSQqi YZP1SD66HCRifYBYyyCYmAJ 0uC8GPK9VCXVtRZHqyCFRJC JKTG64PKNCLTRBLHMKKEZNN CK9ME10NFZ5BJnAHSTsUJET VR7KSCN9ZW4joWPYyyZIkGO TlR3yWHN3VZLIHA4ZZE4aQF SFQRGKDQAHBZVbWJF6ogUUa KDMkau24NGM2JxZsy6G3DIA 2QGZnWRHuf4nqRPJpaVKlIj EwMzNcZnRuYmpcdWMxXGRlZ nQix5pwe523oXMdw0asNORw BmD3hKXrTDZivUIfQ739VOM gCKcjj2ydj1CsHPWwhBXay8 S0TJGKijferCa5kFqgO95cy 6S7UhujQ5kzVLAnKBTdA0Wi WK9zGRQmLtb5ZYD4HRW5NIP cADZbZ5UuOG6kYWRrgVAyWF c5o2bseFhaDODoKWR8f0huZ WjkydPvNN9toq7ggYa8k9gk coWhUVGoXWJvvAIDNJRqI7F dnFxwOi3xiZr9pHurMawiWE C4Qde6OV7bwh80kfm3pUhhV RUzkomaPdZ3JWraBAVhcznk PHy7WXgtAPCyuXV6FCQgeEL fK6XuNVWjKK7iejg0JKU5UG coEHGaXfT2NZYdfBRmBPYdf LmgIFffi162KTW4UpVdLC5n H9Nxm8T3iK7xrAChXGKmwCN iWjKkHGDssb5bvHQdICdyn6 HpIQU3jyM1fNVykSYjTEGqC yY5FSxyTT9zyr88SXXlJVH0 vc5edPJmjVrbzaHxdRNxNZg nJ9YhCONri061BRGpA0ZqKL Mam0S2duMiApQsKWCplNZ9p jY2EHXqDU3orbxfb4nyWFkg UUyhGQXbatL5caP8FHIxlYS tU2SetS7lYCByAS2vwfrsk6 ysEFH0ZDuuYLCpEYQ1RyRrL VXxt7Gjpmh1BuMut8SetPBs DDknA16zl902HUZigrYiW2a wbGFpblxwbGFpblxmMFxmcz Q8UKVvGIcrnnbuAVAxQHpsO 2mfZhRyDKJrjMwcOJmjd3Ud XGYxXGZzMjJcdGFiXHRhYlx 3EVVcnEXgCZYhKtCzA5nwiq zbHqAXGKJdu9kwJ0snmWVDd QXoJ3YhGRoquwAiDQrlWHsc JuZfRRr2GJ47VlZyECRnkk1 9 SYNOPTIC REPORT (test OVARY or FALLOPIAN TUBE code = 5765) or PRIMARY PERITONEUMOVARY OR FALLOPIAN TUBE OR PRIMARY PERITONEUM - All [id number] Edition - Protocol posted: 07/05/2021 SPECIMEN Procedure: Total hysterectomy and bilateral salpingo-oophorectomy Procedure: Omentectomy Procedure: Peritoneal tumor debulking Hysterectomy Type: Abdominal Specimen Integrity: Not applicable Uterus Integrity: Intact TUMOR Tumor Site: Primary peritoneum Tumor Size: Cannot be determined: Largest nodular area in the omentum measured ~ 5 cm Histologic Type: High grade serous carcinoma Ovarian Surface Involvement: Present, right and left Fallopian Tube Surface Involvement: Present, right and left Other Tissue / Organ Involvement: Right ovary Other Tissue / Organ Involvement: Left ovary Other Tissue / Organ Involvement: Right fallopian tube Other Tissue / Organ Involvement: Left fallopian tube Other Tissue / Organ Involvement: Pelvic peritoneum Other Tissue / Organ Involvement: Omentum Other Tissue / Organ Involvement: Uterine serosa, pericolonic tissue, appendiceal serosa and mesoappendix Largest Extrapelvic Peritoneal Focus: Macroscopic (greater than 2 cm): Omentum Peritoneal / Ascitic Fluid Involvement: Not submitted / unknown Chemotherapy Response Score (CRS): CRS1 (no definite or minimal response) REGIONAL LYMPH NODES Regional Lymph Node Status: : Tumor present in regional lymph node(s) Number of Nodes with Metastasis Greater than 10 mm: 0 Number of Nodes with Metastasis 10 mm or Less (excluding isolated tumor cells): 1 Emery Site(s) with Tumor: Pericolonic Size of Largest Emery Metastatic Deposit: Less than: 5 mm Number of Lymph Nodes Examined: 3 Emery Site(s) Examined: Pelvic, NOS Emery Site(s) Examined: Pericolonic DISTANT METASTASIS PATHOLOGIC STAGE CLASSIFICATION (pTNM, AJCC 8th Edition) Reporting of pT, pN, and (when applicable) pM categories is based on information available to the pathologist at the time the report is issued. As per the AJCC (Chapter 1, 8th Ed.) it is the managing physician s responsibility to establish the final pathologic stage based upon all pertinent information, including but potentially not limited to this pathology report. TNM Descriptors: y (post-treatment) pT Category: pT3c pN Category: pN1a pM Category: pM1a CPT Code(s) (test code p2trsKNzEALyyJU1TtFkHQG = 3357) bi7hjg9AokKQpqTKvRRsmuO SigdTktp00qAU0uO39DM0zU NZrXvK4OUBkuyR5Hcn8RYMg PPAjaJWwA487i3wle1ysgzB kiUF1uZqsGOPfnxvuWqW7NL kjRTPecxwmEOy0GUltDFBiu UL0EUIayLXqP1RoHPDkJK4x rom4IPS4FLeyOYKnNfP4GBA qqIQsNWNtfHwoZWuhx257EF B8QiUnEENgroHyvIwfiK4bC kRrDWQAXxY4IYGuGTsbEYyn XiP7IJi6JfFqPxX8RYC2SFc xHWHuHl3kTLzpOClxvFZaTA XpJVu8MdO5XGXrzmKVKeO6W PDvJKvgDSWoTL2uVKviLOa8 ERz4WjDkIdO6TCB1GOW9Wpa sSQYoEb8iHTunROKzxTRkJW yhEGd8UwM3XFLdpe7= GROSS DESCRIPTION t4hymJPuVXAmhQJ5IqEnOZI (test code = ej9sfz7KmbAUunTYhDLogxM [id number]) FcuhMjwo86tPH5qS36IS8bX CFoIqG4XPXokyY8Oxa9LBKa OKPraVXuD989c7vyj0ztmhS pgNJ1HRXdDOHcX2WcTG8mYR MiwLOcJ49bfGXmBVL2RAMqM UOvuJSlGZEtWBS3SJMdeWEe J6rtZHHmLX4dqjblDJzyJLy pHMVnvLR7YUIexKDyU5FpHK PyGJbrCRImegn4EtYbGs2yr GBdeAfaWBvbNYWze1ygMWMy yQPaDKJ4OTsnrBTrRNDlYCN qHKs9FZUwYEirwRGxSB4coL piQnxqzOyhh7LxaUFdQEvkK KDpLKJdFDsiLIMfB7ZVOFHu NpL8LrI0LKZcRXc4UNe3DG2 GEyCzXBLqNNH9OuMiYSYvQO j9OCnpRE0FKGL5UfP9EFy3Q uD4ZHHlTZAfLRTkUbPsOGBg DXzuBnXNjksaeEWiZG7yyZr wbGFpblxmczIwIEEuIFNvZn BjUAdwp9TuKEXIjMbsox9uw BCiEBQzViWzFK6xUZRaF4Za dmVkIGZyZXNoIGZvciBpbnR zLT0gPOTxyOe5GKAoq81bgA g6FDJtd39bnHNbCZyuLAL0g JXdSDOsqJepewNagdYiLC0v XGArI6She6Jcw73tkgJhHqT jPOGkZONrp74snCO0kYCtcB JzDO02jIJsQsAhqiGnTJZtj q2yvX1wYGNcZWU7IL6rSHKx eCWtZWWvDlC4lSRjdFAlv1l 8tUHxFHntdUH3AB3pusfkp6 DdGqIaVBLqfrYuimTvk3mkN Q7hYGBfGELpaTXwTGfaJUV5 Gr1byFUeWWUzltRxanFtkPD wv0YxDdTklyDlBPCoRNg9y7 deHVwcHENvm7WahHXuYXXUG UBrDfmoORZgbITqNTkKd2cb cWcoo7HobKMfARknHHJqrPJ eHVuvlS6rTdVav5ignWl7BM lqwoK9EJOgdt90QPyyAHQyV 2DbF1XtYKbaENI1WIBkTkRc HUYyJN6SOxVjNRkXJLyeEpO 6NgH2CPn2UWKSGkNoShXfVx rcYEgdKFJoONv0CRx9CZySR kZ1HAj0Hbs2FBQvABSnXFnx SWj1EVTjZUetcCCvMQKyJNQ dXTlwGHkmL23oQlLwMXNJIv OFn7Q4VVSox2R0ERxoC1LlY XIuXHBhclxmczIwIEIuICBS TDCytWZkGJRkgsRhr8RtSLa pbiBsYWJlbGVkIHdpdGggcG L0jUXvxJftAP0gsRHxYGCaP 4Pim1xukyKzmH2uSXNgLK7m UKUwo0A8ZJEzk0J2VLzsu2E oZXIiIGFyZSAyIHllbGxvdy YjOUJ9aLHcnEYaeFZkl9Zqv 06vuiR7rTWhDBBadYXrytqi ZTOksMF0YqIjxWRpRRMuYBJ bZb16GYloZKS3CLHiH62iUZ BZkUEpw2QrU1ghZX2oyJExu 4LygKSzzDjfh0WdpNuvtcXn NTAuARGkp4TnJYneJJJiTYM bb5IkzVOcd1ZruIJwHUrngG 48PHCwvCFor2JoUVIha26pJ QHgi4QvvXLiBQ0iVMWfCJSm EGuikFoqY8M9cGBveE8lDNE oZXJlIGlzIGFuIGFyZWEgd2 r3hOPcQZ1hECZbXBJuSNUgE IJrLS6lKPLjEIVemUKgjcac INX2CRCvKPH6LLEiF24iUWS UnGZmE5Y7ASO7gsSuX3Aau0 LixQoyNO5dSKWySLTpIUFvF VKmjURqjCO0rxQtVSPcMwRf MnO0bXjzFXEsMTZqER7aTW4 xPR7uHO64zQJzSLzbl2mdkg BzQNNpGNitEI95bDGmGQQbF IVJOGCzINBagpYchCy0IMQy LPZ3eQ1xsvHaxyYsu4LsvKl 7dKVcKQVfDRGmlAquz4JdLJ UzmemnXROvV4SyiDtrrjWhc 6GmZszmZOSfPzMwFcV4WWCi oTVqo5HtuXV9nHMwUNLcS4I pl69qZK6iLV8yGN54mW5mUW OlcGwoW4PqLMTfaqFwRVJsC CX8GAmcqHQcZVJ8GGPaLMuq BnFiiyRdER77CLKcziVgh5A buPsukiQtj8Xhel9plEzrjl MrcrHzMXBmdIloO0CcZYXxh kBlABZtOLY9GYxtkARtISGn Wh8DTuY9JXBnQMo2sU8gOOo zjiBunvReAN60ZVLfaoEop1 HitIpzvjGeu1Kkw68dsvF6g OosMTPwRUCbhxFaBGLgM4Yc n0O6lWYrWZWvryamOPGpUgU ojZQsFAFkidsyIKTeN0KxI2 McapTpzWMuNZYawqIll2bgT FE4GFBkmCGnhRYnMfVsRzzu TBE6s3qfVTLecORwMZE0OYo caWQgNTEwMDIgXFxkYiBPVl WpUpFuRhI3BLqwCKTnOPc4E GniC9MYFNSoEMN0DHP2GcJa LnU0SXq2RQPTMc4ePIA2KXH 3SONnHPY9CmL6SPlusVQpCF xcZmwgXFxmIEFyaWFsIFxcb lC5EQVdXsYeDy6dU58vxDMI xPGxjFFhYJ92aQSxDkqoRVS vZwDkPTauHtYlOg9bHuByOG x4ZQHomU4mYs1rcNGpbN1nV BrbOsAwOFDpa6r0hAY1hCMo hRP5sTIsiLgrCK6waCFpOAW rQ1Fsm1nsxkOkaK0gVVDcXJ 6rMCUzt0Q9LEToa1Y4RVbms 3RoZXIiIGlzIGEgdGFuLXBp mzmffT55OEB1NZIqrYJiETq 9RJj3CgUbB77voU8tkXFyY1 PaJQUgUTYqHY5skZ6nEPJtQ CBjbSBpbiBkaWFtZXRlcikg q5r0eGKwTQOuTrE7DGMrEQP 4TKDnYKMoeUShiGKsX2ehKN UqRGWdSDBeFF0giTnzOQ6uO KmhPERhfp1uLQIjybP9TZ2z rMbmhkMjafKdh02ri9CeRVk pqAnsmSHrfRlbq0HwhOT9NS 5jq3kwtEAluz3hsDmdopEyW C6pfR6nEBKpk63owJCbsvA8 hEKmCJYkDC2cWY1eHJflUMj yWVN1GUB5ABSjlOOxo4coky 4gIFRoZSBhcHBlbmRpeCBpc fKhYZWcHUzpqTZuVBC5mV1w RGYazD2qfmL7NQKzPQTudL2 yHB91XZHxB6LuJI4pbCAhrJ SzVDZ0dHGeCWktQsN3nZMso Yfwq9V4XEWpRTAdOJ9rpWuh f2GhiDevQJUegRGkAYc4PoS uONwyCRx4wLBeGMuiSMSusX X4DFYrAPSpMT72ZASyZhVjT GhdJQkjyPvjnXnvL5deGMCb PBqnTFMlTqGnbP7gEzFbidS mGX20SMKlbqKiv6BixKnbmh GdOSHkBVZ1Np6vrYYtOZ4bt SCqCGOpt5IzywC5DKPyYZGl f9UmSK2xLALrFMAkpSWdqF2 cuo6fsDHcSXZjnsYJnsljR2 0mORtfpVcmCYYKvvNkQ5Bgm ERgyTdeQGsazURmT9yhSTLh jtgeDOOoU5YaoGeywjYer2N pHqitBZAzBmA0QOLdb1eptS MuBK4txlotjfLyqmMzBHIiH WPpEKTohQAqL9SvGLL7oFUd IWFgZWAeU0LddHYcHABtXyK MFYYbOLNcsxFufAs5WLHwss 9yhwNgOJU1oR4vdlO4ycIcz mNsdWRlIGFyZWFzIHdpdGgg sv5heVdwf3akPKXttZRpRHQ wMfQfQ5FkKCxQh7jopIush2 VjdGVuZFxwYXJccGFyZFxzb G2cUgKzw7qseSf2QAybrhK6 ZBGdif70TYnaKSClS5BfH9T aBXmqDTN2RVWhTsEjFYOsFZ 3IYsHtAJdTLXsuIwB0YzQ8W Gi5LNBZFuKqZkAyTuldKSwr CnhsNXo7FFm2IRnPNxR5YSb 7Tmh1OCsvLSBgORkiUBm7CH IgXFxmbCBcXGYgQXJpYWwgX DhlB58nAsDoBDOHUbKXa7F6 NJNyv9W9LGzcK2XaJMVjOSD hclxmczIwIEQuICBSZWNlaX KdLRGiqdYcp6SuHValdsZjA OYtzMFqCDlnbFvudJP1dMRw vIqiDV5wfFAcDBUgX5Vhd1o cpjUdkM2eCTNnWW8jXZWsq1 J3PHYom1X7QByvg0UxDIOuW RVaREZyXNPrfn6vhJ8eJKHq HCEya4elVETkj7Y4ITBnykM bwSJwiAJlrUAfz2CmaS2lQK CnKyJ1ELGtBxN5ZBPyDoXsd nHoBA7cIEswIO9iMQukJC7q YXWlHtSrG7JfC1ykDA3muMX wd8GudEi7mSVqKTwpPQLthH 1drK4dM4Oso4D6kRUzSHAtm 6retJabx5JthKVkCUzzZNCn uZQiYVexlQ9fOiAcs0qcdFc 9YPpwliE7EOHrwq28ZRhtMY WqD0RpY6FbQFljDQC7CGAsE rDrCXAmIJ6ZNrRwNElGIOzi KmX9IoK8YXm8KPRTWxWqSvB pWdieXRy9YMssFTo4QIm2OG gDOaH1CCd5Qdi5PgdfNPVwQ QohBMj1NJRfKJrzpXDsRAGu FGOrLLzeOFyoX15cEhIqHRG MDnOErOJewDEfmk1PTVY3pM guXHBhclxmczIwIEUuICBSZ EByqFVbUIHnmsSel4CkBLwi biBsYWJlbGVkIHdpdGggcGF 4gEGzgPdoIA9ilMHdZBXiA6 Arp5fvwdWarV2dCYFuYC0tE QL3vEUbwDLry7y6sNPzLNW4 aXgiIGlzIGEgaHlzdGVyZWN 0l887OXVsCPKve0otP3GglK zgn7HkA3xxIG3ddTYey3Nfj F8kIKW0IKakJIKqLEU0LIEt L96gLWe1h5zlwDnuuz4iDRO uF2arq4EtPT4kc9oosZIgEX OvYCWnzybgJVSlqJ3iyMRuG OWntJl9CRUqbA47YmtbaB5h YZtedhAfTDcoBZQ4gLZtnHH dVCVnv5DcNXirtBdhx0qjVL UyEPGdXWQ5eE8zRX1zNIM2c bQgILK3DSNyNMvmQGaxrpm0 aCBhbmQgNSBjbSBpbiBkaWF oNYRgmpF0qOWnZMN3aBTvbQ YyUX2si6PqxLDygW3dCZGbT SBtZXNlbnRlcnkgZGlzcGxh zHGccNKboQwscHJtj3HjuGZ zbeMiLOBitz51zQq5OOAgi3 O9vKGvKvVaNBnpf8Ufbi7sf WxlcyBhcmUgYWxzbyBwcmVz BF37GO1wVGQuAQPzBUTch2B kx1IdgToyBQMqb0LpPnHtSS okFZXkhf1xYWLiygB0HT7eu IwtssBxhxTedEKjPP0ilJ1v bmFqzZPoeN5wwLuas0x0jSK gckPlcRJiXLKuoualb3MibD BzMi3gKMMxa72oHuLrUStcG GCbf0JpsWHef2W4aP0wIX0a EZDbEQOjv6wggJHvwgJfrXT sN3gkMGL0nhV5vHChuQ9mnA JadR4gAME5guRtY5Jfw3Ipv HgjACU2ILW9ipW3sCKwDICx bWUgdmlzdWFsaXplZCBhZGh hj6ncmjVqBXSAoXJbOp71TH ctjPPyw8GazdWwNOBoHQFxa 2AdWTxjROF2leTmsqWlI8Up IX2gOfAiDVoemEN1GZIuSEu sVZIjc47bnzIbm7ZssGHfUi D3eCLnMoAzCMZdCIXqQUHpd TNtq6NdMDgemBkqzSAkpQYa JTVjyaaaF84ts31kViSwq4f vpiFybqDyr41kvgYmvGm8PW mzNMDyNJHjVCK1hV3gLSulk GggZmxhdHRlbmluZyBpbiB0 tNYev6nqmD0fWNQss9vxwm1 oXP3sXJoyt9nijbSjAPMaRC bpMA21uXAzKKOcnZ6frVixV YNejF3jePQnuHHuk0TvAtWj RHVlIHRvIHRoZSBleHRlbnN nrsKyLLRmMKKhnzOmZE1oWW TpMQC2oMGezKLqtI5egZetW YCyH9L7bYM1bXUxtGBqdPXd pwBtsCNgSMDbUYU7qP3gRRh hHTIxFPAsPBE0kpFfAXUpy5 Zpi5GcBH4pzTDjZTPoywNNi NDzdHRyjpFhAC8aZXW1msNp LAbfEmNlkLTmHk7GKVfzPu5 tHYViJPcWJAYpTRqnUCT7Qm KzZ59uJCQaBSDzAPdiiHnxV C6bEKF1FYUnWPMvV3Mluqf2 BB5kYNO6sxftBhCrDrXeyEP pPtMeY27dv7i0cOWzWURiL0 0oj9smhMoqk6JmM1DdqpflK Wjkj2MoJRJrMLIkdHXrL3qw ZCBiaWxhdGVyYWwgYWRuZXh uLsTBtEHbG72rh40pkMWqAJ agOIF9tVyvAGO8YRLePEEap Y2sdUibJME4ONX2jbPevyB9 nFBicF4kuHGiwM8xQFP7kmN wW4XoQHXNbYUdLU05YDMmv6 IgdXRlcnVzIGhhcyBhbiBhd FJsO9afDMSlwYHsRATbAQDs jxw9k44tEHgpjMpak5WhMSN eDNPraVNvpDZfTBMld8naYX Yko9Gfq2Qsq9k5wPVobSe0v OIxFWU3LW3wn9jkoXQqqk3o aMxwpo5uITFpuVMflROwyUQ vwqO2kOZnycSwEJRsFZR4TY ZsoUG1RPQaszM0cuZlsWGhh BI5ZYSdtRFuJDJfeoplh6Ap v3RnRH1gWMTrZTAummHezjw fvnZ9pTBddATsJIVRmKGplV RlcnVzIGlzIGJpdmFsdmVkI JctiD0eBN80YAOig7CgUC0y NUVkp2XkpqxxbdFgDKj4VKO zpZ5cOWjxvBvhjWAnZNFlTT D7JEWrLeUibXRqvCJvPSMnu dvha7VwaTSkrYH4t6F3WAEq dXRlcmluZSBjYXZpdHkuIEE uoFFgV7QurZBpSKhes1IxYC GntB06daTvpLLjaNCgWIWmN DMgeCAyLjUgeCAyIGNtIGlz YGdqDF82iQEhTBSbnR3qcFm lHDToK8q0AZS6SHE4ysJsjY K1c3B6uB4rAGWmKNKot8V3U QSya3KbfWKafeIyFcHQwOMt dXRlcmluZSBjYXZpdHkgaXM gdGFuLXdoaXRlIHdpdGggbX ZrxPerePBwyGVxTV1yRGMxO CKrcRqpe2TqlB01mES7zZGo A3E9pVP2QbXVnQIhZCCdcfX gRFIuGsZ5CMUdN16cZYZuxv G5lQz9QTFpaHBfs6GqKPWom 8DtQepxYFDoXCKlP2BhDZJe EIRnj1r8xXNsyGAyC9juWNW 0ueD2rTYeb4LyJNCld7GkvR 9tcVdtjlKcTlZ6rNLbGB0tq 59jsYCshX8sQHEqIYIyvaLd sOS1wud5yBZzaoGfQLHkbDt ipdjbmQTueUsqJP0vBWvmTQ FjaXUsaE5jFRD0ZMQ5ikIrg eZpGJK7zO9cAZHoeG5aTPjh cGxheSBhIDEuOCBjbSBteW9 tZXRyaXVtLlxwYXJccGFyIF OqORPtYTC3UAD1pSUotDSyJ ZLuyeI1BUOpt66iwVD5ecAh GvBvSSXuxVCaIoHgV97dUsg kYlLiYDUxSLDzUSddh9PpPQ 4gdHViZSBhbmQgYSAzLjgge AXoEyMcrXLpAUOjRQ95TQJ3 LiAgVGhlIGZhbGxvcGlhbiB 6qQFgBADlqq9gTDIorkO3PO 5qsKeqwjL7mDUuBT58pMPtq GspRRLulg20iPk0SGVdh3D3 bGVzLiBJdCBpcyBzZXJpYWx dvKFtYOK4wS2iMTLwqB8hIN hhmZmiqGTzOEXxdcKfmO92F Dr9cUQyZyCuROggFAdnPfMe s4UzfbmdcYDps8YffRCpv8l tfITzZMCiYBB7rNVnYXDzmR FuIHdoaXRlIGFwcGVhcmFuY 9GhLEy0NUuuEORci0FqrXIa UHXjHFPui3StQUbdCBY3DP3 rnW1ajCYjrV39LAC8lVSwnL JmYWNlIHdpdGggbXVsdGlwb TKwpTDdUBi5eURtaTmzi2vt nPBbZToqkADnVKvbl4yhqqH qWVURyvPtUOUvdvv2xAPaSH AuybY4baCkdZKqfB1unJXrl VAdccMqEmvdBE3beDFxSEfh gzSyTOcbXSAhA7i3GQQekaN 6BITuysJdf2Zzr7OtzT9dSE MygtKoVwGTdNPosvEit2LiJ CBlbWJlZGRlZCBpbiBhZGhl p4lckxSiKM0uJNEzgpn4b60 nrT4eCK0iWTPimmFjn5PyIZ 3eMOTnVKL6bVWbvYHtAYBgF XX9BPMrEKRbNRIbhGqbfDrt gyB3vSOgGFDrADBthqHkxpH btSMbBIAcoGTbvldiTI33OO uzDMZcpTPrYQ6lEXCuQGPvZ PKsANCziU8iIUTyTHakY4Ib YB77ef4rWQIxgpyyhTBtLIF 7sJ9zohUdwbLmjZPxUe3ufU QdAEXcIOHny2ipgCxhMK69N YOsOP1lcLHlCI3qpZxmYWWp tkQyyUOmFLMzuQG9pL5wNVV oFVUwDMHfEIzqh6naxsNrDR ZcePrswYzkjoS4hNNwFLy5g FSmTRMeNPVnk6wmfZ2nBWZl RLLbjDIwt7JwUtUxSBEfTwK 1dOVhg3ErncxidLGfdWBySH Prhhshi1z7eGDsLHjvdNB6O Y4kahheO3M2GKX0ecUqX0Nw DV2eUE6hACreMC03yEIaTVD hGRCxo8NrzSOpoJQ5BRQpHk WbDRibBGAfgGiwbDwizxB4n MNwFVAgwXMqqpDgR15sal0s pBLwLIYxiwE2kXMnZGWiLSZ xl39gMHLoJLO0cCQsHgvdHu OjEIMdiuFcj7XnV8Xlo7Cmd SBpZGVudGlmaWFibGUuICBU cDNoo1Tly0QbEWwrIETklo6 rhG8cJBdicTpvtOFzCTprgG HmGP7gQKFeHZEnAM5kVTRzL BYicI2bfiAgpiRarU3nb8hi tH2tQVBkmrYCDRKfSVItwzB jyDz8HYFeCBT5vZ0ozmNzxr Qdf4AjgAv7vTQhOxKOxE57l 9gpTGBwxxNjoyTemDWrRZ2w v6ZrcCecHTVuYACmtUXgSdE coAUaUIUblcVPmtxkV54uIZ ejCVpwDHFjB6RxcixgIVEmu 8EfwUIuo9qintedKU2kkgay fwxzgX9nPZAeaGNiyEEazRk sIUvzZ59jv12eQhWdMEUznV 5ccGFyIEdyZWVuLWFudGVya V2hEUV4CJF1p8rnwV9sBSCp LZQcFUBkx7VywzbauvHvAED 1mSjxyVQvYQPqkzDULDZ8wJ 7pUZDsEFG3PBljafLtYWIrq WQsqNfxFNtsF84kt62aWkYj WXHouA9pqSkiLGFIYx9ydMP 2XAcwH86up43qHsOjJYDrbP 1guIPpHHAlYIGxoXAnc7Lju CK6cVMmHHKwE8Jfc73eq4Gu s1nnmF3uOBCuo9xufkghaZ5 uNSD1UKK3ZIQ0xVhhjQwwX7 asEJDxFJVeR9Llc92wj6LdD G07ZPJpo1GnwGJzxbRyINSr uqBZNBXtVQXbRPS5aRqjrNc bI0irHWMkUKFpX7Nmf06pv1 FxrE4uxERtxQ9fKKT7TQU9c oO7uDUyLHWskBXcRD13PYXk u4FjXSWwjbJUJHHdHTX1JBN vBPa7jS6oIKnnVhBcjH10bD rck04wq9Xcf3CqgYlntaApV bXje1E6JKPzw6MizPWjlkOd IHdpdGggYWRoZXJlbnQgYm9 3KDtagSXpAFEzLr3sVZF2bt P7zTT6LBXzmS2tfDEosC8vv B0crWGcdE3bLTR1AQI2e3yt SBVeLXF5MPDozKUms2FqmBY 3kXGmLEZvR4Vwj06dy2CzUK 49FDObm8TmL9Cntog3CMiui xZjUZL1THQynXYax9FdgZK0 yOKmFBNkT5Czp55kh0RrsG1 ohBYucQ7zLRKtduPooFydUK QqNIQaHLKsvJSfl1XmwLP9d SFxTSKrM8Iac16sGD6hIYko GnXrGpZvnF0chQIhUVO0HrQ kHH8eDDDgyGFyhQNpVtdfID S9RZUkrZwuKNVAEwBpZGFmW VelWkWnm2DipuplNbzuYQQ6 GNAipQRyUEGaAl0sXG5rWEH nUWQ1XD3qv5odpeknYSAuKH InPRptppRyEXH1BUJcD4m8J MAplOkwyVywmtH2eFVuKRSs QSXbw0XivNWvTTKfhX7umxq iBCazgvVgBBE9YPScHaAikI dodCBvdmFyeSBzZXJpYWxse XZdTWZ2qV4cMXHgIYLrDZ8Y QwSiEJ7vYMSMIvJoDxTxQAE xCXCcxaPbU1TtfVFcn5XmnY mzxiPaHFAdcoMORvDaWCZ3N FVge4PfUmgjMKIitEShbO0q buGlYTXrKQWwO1o4JY54GEE 7QKNtheVBGsUjVJW0KHCiyr 52fAc9HESyb2Q2aRWaHB5bO PZlhjz5v84xvM3tqLOkJHWa IH4ee1I4jTTzhG7ovNAomYK fxnE4oCOpyCJuYXA6NJ9VWC YuWwzqLNZbuyQnZIGzDVC7w J1nZLyhmIxvnDXvUPkpyEXw NE7sCUDpQUBulXFwAWNsztH OYHoqEBBeI1LjV4JotwSquV MvJDHqimRvg7irAZB8UZCve WXdjVAyZqXtPldqKNV5x6mm FGMopHNbDIU6SSwgdTXtDXX wMDIgXFxkYiBPVlIgIiBaUj N0DWfoPGBeMIn3FFmdY6RVT DClVWK6HTO0CWNdRzS6FVk4 PZKIZt7nYOX1MTX5Boc6OYK 7HqS6KDvqxVPtCWfyKlcoDI acAYDudFJgPXlurdR9CXIzC vCqWh3fBGSartTwJSqaJ1Pq gmp4StacBFHgVlFoJGpzKfE tIg0sJhWsWOo4ZQRrvS0zFd 6ygHJblC4vcEWeWEfrKTH7e VHsVACsaLifgmVfwqTqFV8p EJSxC3Cjc5Ttd97fbwWpYxK gXMOuMOUpOyGtF8ojj7YpOI kpQ2LuDK79EdQyjfQeVVgmr HV7UHgyOM69RWAkBAMztk9i dX9hKMRyxIM3tZVgIKXgmJw wF9Fob4Zdo95psEY5dHYukC Hvm7o2zPAyfzCavGZoU1uuI EVufJWmzUWjLbpind15anKj eTFwLGAcRuW4mETtvXIwpBD kf5ImnH3oEHTkAsP5SPAjUb 4iIXYuQLDwxGDgvq3efAZza XLuWENtNVfdKJGsr310sJV7 bPJvNG4qAWkfj5PxmUrfiTJ vhgMeVvfkJqimWP7yODDoUY XbHFUTvJAdMVi8KVNeFDdle 3VyZmFjZSBpcyBpbmtlZCBh wjBrt2UtG1ieAA0tlLQrs4W aoFUgaCxka2OyyPqojcXqBP GeOQFhr6EoGCwuOIQ1QSmwi 1jfEfS7cPwjL3M7EUM1cpGx W2YrZZ5xLSMjmTCkPLzzvSI pBIJcBpAehHGseh8zgTugNJ 9kERK3xseiFcC4EkAbkWEdJ oYqtCTcHyQiP01zYTMQIDNk LODtlvWunJb3DAAvWSE2aW5 fklDnizPfg3KbxDv8nPYwQg JpzXThOMCtjmOAxfyqJ34cY ItbxYwpGUQEmYIrECY1jNLw rqAjXSI6bhOtE4EgcRVwKND xgiRPZHV3mB5wHXVtDRI4GB IwkxBHDN7TPCmpwsEqtfBsF O35JZNaldQmx1ApfPjwjzNx z3BomYnmb1GbIALhLOhjR9y 0NIDyqKlaTLJdcz79iGa2YF Pqj0A1tWHxyGLzPEY0YiUBR NKicIlrcoChJEYirVWjc8Ro gQU6jFKnXYTtM1Rgz79cXO5 cDW0zSWT2DJHjuXGyd6PeFN Tvc5L7NAwjVQLnH5IrZ3Sup zTglCPhWFRrmhDta5beKDT6 XHNsbXVsdDBcZnMxNlxwYXJ 0u7rjKJQkePIvRXD8BAmhzV QgNTEwMDIgXFxkYiBPVlIgI nHxWcG1BLzbASJhVBl4TMdb Z6TPTNIfFGE4KKBfTNg4TbC 0NZq2GVKXOx9vKZZ4DdN3ZL ueFPW8WbR0VZmztANoOYibS mwgXFxmIEFyaWFsIFxcbmN9 TREcSoLfP6XjSPtgHBIxMhJ yZQuhm4VeVSEOiDlyud0xbU RjXCWgAjEvMe2aMMGzR2Tkb oNsOJgeJJVmdg5dqBhxGDbz FvNxAPHlt7b2sYUpVYYtXY5 6F0DxxpUvXFghLEGrRLMxhY 9eUC07xMJkvjEvzwClYuIqC yEvwZjxs8IkZANnqTwjnaGp YXJlIDIgdGFuLXBpbmsgdW5 qngodsiEtJMGheS7brWZkYO eoLC88zaOoDaXbb5kuqzwbZ LYxd8O9AEZsARNohJHooxcl Jk86WUurQC52QQrtXRHpxkH eII17ZQdfIY60INeeWMYhnI 4xHRXdVHKpnCJnd7NbiGJgz HZvSWLnaikjh3t4cHNckgGy IYYbw99aWdApTi1wpUIij0F zIGFyZSBpZGVudGlmaWVkLi YkF8EjS7qnZB5zdYFfu0Vkf Yp9oATyYEfrMXGlhY3rfL7t F1Lyu6T9uVAfWgGxUrGcVRJ zlyeaUJHwIbH7XPYatELuGJ O4NR7llZezVMIaZ2GtJ5Uvd tK5UOUkqx9= INTRAOPERATIVE g8vugQIfCTPraFTFSDAkYpk CONSULTATION (test ekkNfEMNsuVGxK0DnsmmqVW code = [id number]) rkDO8wCJ8ofGdzvKMqyGJzY E7GXZZzQbZrFYKmtDMbawZm YfYtXAUeyTFzsKJ9TJMhLB9 pugogOAvlRYdpTVZeejA1RA FjxYYsF4XeVEWaPD2leglbG RG8SKtfnM3pcsJJVmywQj7i dHRibHtcZjFcZmNoYXJzZXQ zUFIklMybLKMwZEm8oQ1URj okJJN3XZWXJxemHLBuOS0Ud 4nhLQBrcBNzFQR4OCyoiOMw MCZjYOUkWQl2HSDdNWegjXN iHD3kmNpnHmeuqRzld3GguL BcXGlkIDUxMDAyIFxcZGIgI P3FFeRyRSsNYXuvRyM1GvQ5 TCa1TMZHWqOdKrLmOpwaSUY 5RqtwWMz9HMu5CVcGGnN9XK lzFxAzIwUcXTHoWSrgNCi5R DIgXFxmIEFyaWFsIFxcZmwg GSclP12ynKauyK2lUD7mB09 liBLOzTDphNJtGQ37yCGqDi pvVJTnIKrhRKOpV61dc0WAb 9PmRH6KPPv2glXhydxgsR9z USXnzfTnKPlgbWEcU0bzNuO lXZVEC5NzLnEmJWdPPYoVNW dNLCBSSUdIVCwgUEVSSVRPT yEYJQGGN5KUWQQvMIHCJ3rU JK4HOtrzcJ4oZUGlFZMdANE wEGWmY6ABJXvFDK2NYeFYMP GeJk2AVJVPZEyKQ3HTQMGwA 8KfW8PGQ9tAK85IXjHzWD5A RSBUSVNTVUUgUkVRVUVTVEV EXHBhciANClxwYXIgDQpSZX N2oWDhZXXacF6gxNLfEDStZ EJoWiFLu3D4JLbsonAziGD6 MoDtUEZKERoufCavlA1gCRV xK62gh5MTv5CmXCEbKVbdf4 zrkCdjw9YirDVcVRrnBIDjs DJhRVrqnW8qMwMwm0nvhRw4 KUvuzpU6RYZxgx1FEmmjjH0 kXvOxc6njlPv1XYPKIxfjvx H4i1hpaSrst2FctRLyEJ3SU n0= MICROSCOPIC l1czeMZiXWVgoWC4CwOhFOU DESCRIPTION (test code jt8gvn8ZwkUYsvQKzVQbhjW = 3371) GspjLoyv63xGD5fL89LO7uC THaWvU7ADFbfzH2Ksr4GDXa ZTTviQPsJ813p8pnn5vlzkT lfQQ7bSkxBSBezxcmEhE7DU lzLMXgncreUQf6ZOehXNLiu GZ8PLZlxYRwW7IoMYBuNU1a fzx7NKZ4SElrIGOqAcY3DZJ iaKBcYOGxxQhkTTmwi047NU O5BoYkPCOpooHzzPripD9eY nIyMLFYAMJkr1PoFXDxVPLh clxwYXJkXHBhcn0= SPECIAL STUDIES (test x4pznMCvLBDrzLR1ZqImMJJ code = 3376) xw6sgu2JxvGZpnPNzBRxtpY TascXtxa22mIP3bC04JC4lG ZYlYeD4NDJqsqU5Ont9YDTf FNVrpIYwD887CNCxZQQhdKx veen6jG34ARGpwE0teBLgXE ruemMtOHfbukSiaoNqYrc5E BP0vKulKPJwpsabToQ9ARpb CZIzsgwcFGh4ULtdVTAnmWR 8IXNnpXCmZ6UvJNYaRC5odn u8GTO4NGacTCNuEzF4IFKju YHwUGOvqBffSMsiq117EIW7 FkXjDKThknExoGdviJ5bCnR yOAyrTnGzPD5aY6RtJEDabu OlyFFyQPgtzZQcp8S9IVill jDcnCctaGuviHNeRx9epYYy m9LhxVM4FCH7HCJkXbGqHBS lmP7ykEUnVJfiLFAzOD2dNT nxFXR4fC2sAKCkhXuaKNJcP RNfa0JjyEp1VSOiOySRSDcy QELehcBsB8EjEHowDY9rTJD lt8ctWQYyajTbmgZcrOJeJK 62CIRhoHLaHFScyK3iUcMdq GFyXGZzMThccGFyXGZzMjBc H4KeNXKhr7MgXRX1POTpDUL bUTN8BLRtYYD2tZ7iZSDhyW r9gKJboLD1EWIybhUienMld Hgyqeqyu2A9ADbcfy1lbXHy XHBhcmRcZjFcZnMxOFxjZjF ccGFyIFRoZSBpbnRlcnByZX ChaVtxioSqHmV8uMblNMOef 1OmkP1qqQPnFVPlqFdsYDFj UIWpXsPhwG74bn2dxMN9r1X gCT3xb3AbfZTirbBhmXTuvE HxTXS8VYivhg5teTYuBRJkc aWEh990ew0nWHAppQQmiiWC gMYksA5wPFniCJaqKUecaWP uEQrwe3vjPDIwn2e8rWStJA HqvoDci2tvJSjkigOqUPMbe CUsiFWkONGch06gVGnjiKlj rZhnFKAce9CzcIqil3ScMfL kZPzsd5ItY24adDVkfYUzmO ouGBWhnmOvHVRsc42bo1rkD EJqFwK7mDTewWP5fMBndLGy j9QdtOmpGBGev4bxHGPhmo9 vkxwzvFTej7OfhU6xzkdjCX gkpLMwgsNzRSWsi1b5rVHuM JQnZHJnZIuorKm5GYEry389 gq3efbS8rKFoARI0UOtvDUS sZSBhcmUgZXZhbHVhdGVkXH KsjlOnZLOmioNNnO43jf2zr AP0s3BfQL9zk9AolDU3QYSo cloyPWznkHQcxBblHkA1CCQ qgGFtEh2akGXqDOK7PJJibO riczVNdT9sGHGcGWv9ZXOcF lJaLirbshYGXAEzU8SgFCMs kfMdtqpvOHD5zH7rn7a9UDo yDj0tEDHpazump3voubYvsE Jof9ZrSLDiodOol8IkXCVqj mRheDMxNPQwviQlco8rytAq BODnCJAlC1UxyypwbGienpU 3ZXJlIGRldGVybWluZWQuIE y6LBohkkAzl8ZsKmTjuvYpf GEpzcVbBO8lHNCktTVujxZm LUD5HTOkVLPKCdCvFFKkp2W gOK6mIFXbmPgpQOSuaO0rb1 SwELSbf89dWXOeDAXDOFNji GFzIGRldGVybWluZWQgdGhh wZDnwPUoCPHiNBZkPA1nNPB mfkFunBLdh8NjkKNhbmHul4 KbimPfITLmMYJ9KbWPaGImj LYxiPKaerG3y9EkWXJeujKg yRrvoNUblUMjqGNpi0Fger8 yBIGjp2dlmPpnQD0wyGNcAC ByZWdhcmRlZCBhcyBpbnZlc 3OyW8S5kP6fVBcsq8DbYe0a NEOsm6UlvaPaGcSDgDfhYMf qZb3mVYVtptitiZGoP9IqyC lmaWVkIHVuZGVyIHRoZSBDb OyknIDhjUOLZGUksfV5m0I2 IRkkjPNktaTaSF10BOKlBR9 mtHQawJIjd0RvKLv7MPOsD4 vYWH51VIpkERFjeGOwsNkuw ITiALSgKPYaghDyyw4zjDyq dVCps20seXZ9fOW1KDBwpM1 vM2ShUMpyVi1xUTXpgneksJ TpqPngNe1gkJWdeB== [facility] [id number] 12:53:55 Test Item Value Reference Range Interpretation Comments Case Report (test code Surgical Pathology = 104) Report Case: [id number] Authorizing Provider: Ronaldo Owens, Collected: 03/07/2022 09:04 AM Ordering Location: [facility] Received: 03/07/2022 09:10 AM SERVICES Pathologist: Kelly Adams MD Specimens: A) - Soft Tissue, Other, right diaphragm peritoneal nodule B) - Soft Tissue, Other, omentum C) - Soft Tissue, Other, appendix D) - Soft Tissue, Other, transverse colon mesenteric nodule E) - Uterus w/Cervix, uterus,cervix,rectosigm oid ,bilateral tubes and ovaries,bladder peritoneum and pelvic peritoneum F) - Uterus w/Cervix, falciform ligament G) - Soft Tissue, Other, procto donut rings x2 DIAGNOSIS (test code = [id number]) uZzEwMzNcZnRuYmpcdWMxIH tccnRmMVxlcGljOTYwMVxhb cOaMDUqsSUlC0SvlgoyUAfc GF3cJA5utWjjyMVzmNUlLWR qCgKno6rlu842lTFpl5zcSP HNfifnqCp2jPxgQ42xx6C7W xrcN64iiSGwINM6OSWoVFQh uNCdPRTaCUP8XKZxnJHbM3r vTCVeRO2andtuVQnwPOnbYP IdmCY4GTLorRIrW9LzXTKcY KqqZAMdiuj1OwPbCx3buAMc eTcyMFxwYXJkXHBsYWluXGZ uQyJpAV0cMOSHJACTRqVFGL wgUklHSFQgRElBUEhSQUdNI T2HAUJWWFceCKoYADXFE481 OSXqkhg0HCXzHMUACAzMUZj IBHNVWWYQZs3GDdMOYARPIN 1PAYNuX3gSQAIJU0XBXG7CR CINXBWdR5FHX5zVHZCNZMvV TlNccGFyXHBhciBCLiBPTUV CWFARJWVJDDZREHUQPA1VOD iupZAzKYAtXmVgCNpVU9qqH 3ICKDTlE4BAO7YGFTNEYyPS Lg8HVXDVICUXGPZBOA0MY97 XLC3AZlHUMLeWGMINQ1BQJY 9PW2brZYKisWTiHXJkRGMIU GBNHVcBLSLZWWOOQhCDZ6YV RHd7RVGerjy3QYAqNHJGPFe XPWaGAWBUANGZFd3BVuSFBS WUZI3LIPNzON1WS8aQUS5HN CNNKNFDGFfIFRQGLNGDJj2U CGqcUCYwSbo0JeWjCHZSYyB zHZLME1NVXJRMJXgIWKUsjq xjgPGaoFIhNI5dWTTGQJ0JD DAEUGjaLEHYC2gLFFIVXLbZ KPsFRBVZR0CvW2UEU6fBH15 BIFxwYXJccGFyIEQuIFRSQU 2XSfGWX5OlC74OC68pOA9EN 3WJDPWKXLIpAp6YQStUTMVB BYOXL1mHJhfiyOHpQNJaRjX tIENBVVRFUklaRUQgVElTU1 PJQQjMBu8HTwRCBBOJASoKG 9slQ7OESKEuS9ADT6EJAGVM JqYYLv8CPUvuKGLkZss7EgZ fTJQVLNYDURCTTH7ZT71FXB 1MZwUBSVwFEJUOU9ZZGE3JP eRcvJTxYEDlZUzsVNBdQS0a VVRFUlVTLCBDRVJWSVgsIEJ GLZVHYRDDFCADQJzYI6LPLV 8sRIOWGCIlVM0XGS1CVGAEA MGvJBEAG7JFN3xSSD6CCXVD E2fAOnddPWZwyrPJOPIQNMA TGZVCQcfQC72DCJ6vFMGFWN ZJSzQPAXATKM6ZWYAFDKJLO dLTKJ5YKUCQJOwSRLwlGGjO QJYJOSWAF49VPHOPPBtQURL WKZytV0GIHIuCR03uN11CUI 8TCISHN33ZRKBQTNMRZ4JGF 65RKSDsBiTPPZYAAV3YEcdz YXIgICAgICAgIEJJTEFURVJ BTCBPVkFSSUVTIEFORCBGQU kTG5QNYS2kYDMZNSDbpRSgO MVnEuQtEZvIL8kcB5IZBTBs Z7ZZH9NJCXMAErVSQj5ITUI DLIYUCZPFOE7QS89XMZ7BAj FGDOsNCABRW1DTKI6WPtZqh QTaHWDgEmAeMSUkNO3KK3zE FJ0DMTXXVs7HGPonU3ADYlF FAWWbY2PdBteIDKDVEsYOYK 9WQVJJRVMsIEZBTExPUElBT iBUVUJFUywgXHBhclxsaTcy MFxmaTBcbGluNzIwICAgUEV XNQVYGaBWURbcW52UXKTSDY BKYHOiVKREWLKDKALOR6TKC CNFFCQBYR4UQ8crALMxtMpb XGxpbjAgICAgICAgIFVURVJ MFiUUPdEpP7FTNneAPSEhkx b9MPHuHXCGWNpWKKnGDAYQS XJNWa1HChGLHYUZTS5GERDy XT6MG1bGIV1WNDHMFZCMAwB uR5NDV0UDNCDCYUsfYMNgPg r2RmYbYDWWVHUJJ1UWDFSRS YLRPZ0PK6srEKDmPofzHMLk LsCxHMFTCI9LWYEYUBQEMJQ YXEkMNWrSMZXdYkDJF6aGB0 VORCBPRiBBVFJPUEhJQyBFT kRPTUVUUklVTSBccGFyXHRh RnLaVE2LM17QCXVFYK9bU7u USCBMRUlPTVlPTUEgXHBhcl c3PTHlJRYQPiPFBIPGC4FBY EUgVVRFUklORSBDRVJWSVhc cGFyXHBhcmQgICAgICAgIFJ XC1GOJ1xTVH8MWYDLR9tERb miTPTufKJqSB9wMRpQYG8TF aLLJURAALONSCVtE1GUF0eD O12PPYsONLdxMHCGQE1VIEZ FP9GIWKMYTYJFHolVYPPZL0 5TXHBhclxmaTcyMCAgIElOV w0MSwwIDzHDACEUA35YM49M OnCFTTQDDRPsLN7QPQVGQc1 FNCmkUTTENHOIG65WBDUpez AtIFVOUkVNQVJLQUJMRSBDT 1tWPddVFJ8FX19XRSweSWRz RDUNJWEXO6QYHXkLRZMCGtM EJu6IPMAVIsBEDgFiC7UmNU sWHKYlSVwJLKiiZv9ANCGfW PHnEvrriLRiMWTrJOe0GVZv ETNWYw4SGH0DXQDCS2lYEcu UEW7WCndUPjhgZT0TU3jXIM ZjWsklFXGPB3GmrJKvXORuZ bYaYCTHV3CDCKCGX9pDVckW WL4GIjzFQlgbNcCMMQDNAeI qUs0WJLFPHT9MAFQbeiBhTW AgICAgQkxBRERFUiBBTkQgU SKHYbvGGBYWKnhQB81IFN9u fSQtLMIpDlPfULiLY8czX5K ZOYDwF9UDK8GJNQNCXsBDVi 0EUVZIOJFVDHSGHA0FU71VT A1VMqUYWMqDOOSYM6TOPW6A B9irMHHgwUUnPBBvAMBQDQD RJr9QNSAOYOyKPBKKRIfrSR iYDITNL399IXYpgnf0KKJmZ IGHGLnIWYaTDAOZTYWOUe1T StQLGEDQFO0WJTNxUBAdoln qTRQzEz0vO84EX39mKLMLGi VUIFJJTkdTIFgyLCBFWENJU 0lPTjpccGFyXHRhYiAtIFVO MlTRKYAYOKMCMPUKQ0cQBdv NWY0VM30HYDsvATBfhXMgUX 3nP2SCD1NKXOkHJQymMGMVS BUZW97HTFSZURFQHZTDVMAY HM5TE44XMR3HSwJUMVjXZYI LG7HLHM8XY5ruKEPjpLCrON CzI1cKFS1NDPRIL5BBZ6uFE YFJGVQNUZWQSOnFTS9rrFTq VCRwkx24VMG7KtLrg4R9RCU 5KYNkUTHtj5hbBJXpwNCwQj EwMzNcZnRuYmpcdWMxXGRlZ xFjp3jnb134nNCrt2svAOHe NnJ9cXBbNZAdvVPpV914ROM cMTvmx6nib3DgGXGbdDCyk4 X5IKHZomkivAo2tFluW29oy 9G8KqblG7hgAZAyVZPoY7Nl HA3qKZDzEpl3BEZ9FKG9JTT sIYAiL2NsLH4zWTAggDYsZZ q7b5jkwWmiBDGsPVT5z1yaL IemgkPbUQ1qnd6ijTo7y9pv mxSkNYUdDJIugYRAATYcA9Q dkBmwJp7mzZl1fMztYfseMX P7Ycp0ZE4lnu94cie7aBfuZ PXqzgpqDwS8IQlgHGCmungp RLj8ZJvtOAUgyMP0YGEzrZH eX3MiWZYeDM5jmka0ZOK0QP dvRDTgOlT3IZYkrISyEECqi IdwKSzdw374NOO9NoSqJE8a M2Ukq7A6iJ5ygJVeRAUfmWF sCzJwWIJghy9zoNBpEJawg9 FxKVZ6scM3sGBwoSAqHLRpJ lY2EPkeDW9urb01NLUsMCY0 ai3pfYPyxPkyqxNtfHBbOOv cK4OmYVGyv773GUGaR4MyNB Kep6L8ugNjFwDmBGMvhQP8d wS8YJFmHU2dwohqx1zzUNzt LPgrRPVjoyZ8cwC6ZKRdcUE qV1KmdD9vUZXqGB8drvowv5 snIZD9WBnaZTQeUHT5AeAzU GEbw2Dvikh5YaRtf6RykSYi YVvhA24gz006LMSkmbXgR4s wbGFpblxwbGFpblxmMFxmcz J7GBUeYRfypumkPIPhZCnfG 3kfGkUkCBLqtCceQCjyg8Pp XGYxXGZzMjJcdGFiXHRhYlx 9FFXcjSXhMSKuQcLvO4nlht mrCdOMNWMpa0jjU4fmuDGCp IYwA1IzGHxjiiOzQRrqSRjc QgOnASl5AW53JiGtPOXsfx7 9 SYNOPTIC REPORT (test OVARY or FALLOPIAN TUBE code = 5765) or PRIMARY PERITONEUMOVARY OR FALLOPIAN TUBE OR PRIMARY PERITONEUM - All [id number] Edition - Protocol posted: 07/05/2021 SPECIMEN Procedure: Total hysterectomy and bilateral salpingo-oophorectomy Procedure: Omentectomy Procedure: Peritoneal tumor debulking Hysterectomy Type: Abdominal Specimen Integrity: Not applicable Uterus Integrity: Intact TUMOR Tumor Site: Primary peritoneum Tumor Size: Cannot be determined: Largest nodular area in the omentum measured ~ 5 cm Histologic Type: High grade serous carcinoma Ovarian Surface Involvement: Present, right and left Fallopian Tube Surface Involvement: Present, right and left Other Tissue / Organ Involvement: Right ovary Other Tissue / Organ Involvement: Left ovary Other Tissue / Organ Involvement: Right fallopian tube Other Tissue / Organ Involvement: Left fallopian tube Other Tissue / Organ Involvement: Pelvic peritoneum Other Tissue / Organ Involvement: Omentum Other Tissue / Organ Involvement: Uterine serosa, pericolonic tissue, appendiceal serosa and mesoappendix Largest Extrapelvic Peritoneal Focus: Macroscopic (greater than 2 cm): Omentum Peritoneal / Ascitic Fluid Involvement: Not submitted / unknown Chemotherapy Response Score (CRS): CRS1 (no definite or minimal response) REGIONAL LYMPH NODES Regional Lymph Node Status: : Tumor present in regional lymph node(s) Number of Nodes with Metastasis Greater than 10 mm: 0 Number of Nodes with Metastasis 10 mm or Less (excluding isolated tumor cells): 1 Emery Site(s) with Tumor: Pericolonic Size of Largest Emery Metastatic Deposit: Less than: 5 mm Number of Lymph Nodes Examined: 3 Emery Site(s) Examined: Pelvic, NOS Emery Site(s) Examined: Pericolonic DISTANT METASTASIS PATHOLOGIC STAGE CLASSIFICATION (pTNM, AJCC 8th Edition) Reporting of pT, pN, and (when applicable) pM categories is based on information available to the pathologist at the time the report is issued. As per the AJCC (Chapter 1, 8th Ed.) it is the managing physician s responsibility to establish the final pathologic stage based upon all pertinent information, including but potentially not limited to this pathology report. TNM Descriptors: y (post-treatment) pT Category: pT3c pN Category: pN1a pM Category: pM1a CPT Code(s) (test code [id number] = 3357) zo6hrh7HoqKBfnQDtRNtuyE IayfFerf58dVS7nP53CL3mB TPaGyY7VSEnqsQ4Nxm8XKDh AYPyoSEfH015t0qoi6nwvyH fgUC1tOaxRWPvyuwuCsT6AC qqZCTmpdtiVFt8KOujXHByg FG4UFWmlCKoV8BuPZUrMI8j uwn0MXD8HQtdSMLtXiZ5URX oaWKaZGVwlNbjXEdxe260MN X6UlYjPGEwpbFatSnynY4gG bDdLEQGLpO1KBFuWZrdHNap EsG9KGm9QvAiQkK1HHO3SLy wASGmHs5mKEgmRDyvfCWcCZ HjNMw4WeL5SFZcalCCKyQ8N RVoUUhoIDYoKG0eLLwfGUb8 RSx4ZuAjOwB9CTO4DQT9Vuv qFUUrRx6vCIahGDYhhXVpXN vrZUg8DrB6ODYtoq0= GROSS DESCRIPTION r6pnzEOkKWBldVH4ClRxSZE (test code = bo1pqu7EyfJZutYXbNIbwrH [id number]) YsydMvbh05pVA3hW36NS8cN QFrSmL2PZFzciZ8Wvm0OEMd KGEpiRMuZ200u7aoj8ooorY xzBC2MXOoUAWtR7MlZQ2kPI HljXFrF48tfADqQTU5FAJmQ FBjdQDqLOXdAXX2KGFlnGZn T0zwOHJrIL1roydgWXceVSz kMFAnqNH0KRXyeHBgK2WfII BuFBxsVIJdkel0AuMeTb4nl OIxwLsaVGfsHLVft6jmWJTy bPZdDSG8HBqiwLUiYAPiYDZ pQFu2BTHsOVmpvSYaTH3krY bxBpiqhVjmk9YzhAFdHZkdW OEwXRFyHSdqRLSkR0NAYWUj LcA5VlK2QERgSUr0ZGd2EK5 CGxSxSXCmUWC1BfHnYHPzDX n8XZbwGB5JMQJ1RlY6DZm2N eG1WTGgOAKwNYNnFdEeTSNq HHqzIyRHryvbkNDvQC4jnCf wbGFpblxmczIwIEEuIFNvZn SvSYsdp2EkARCQhRpcnh8zj CLjDDXnGmHwIT1kEISdV7Xt dmVkIGZyZXNoIGZvciBpbnR dYA7vGCIyiJo6DPWqs54ssM c3PEGdd20euRMqDGknNFZ6j NDyKSKeeVdhorQhzpYiUK7i BBYhS5Usb9Nga43yraXiYxA kIGGoUDOpj76naHA2iKEnoJ HpTA66nHWtSlQoamKgCDMfa q1kwU4hEVNeQAN2CE6mYYFv lVGpXDEjHiG1oTKfvNOrv7n 2kCVtUKajaVH0RT7njvwtx7 RwGkZhIQGglyOreaNcm4wyF T0yUDHcCFOmzVHmEQqgPYO0 Qu3unVXgVJIwrxAqqxRjfBD ic6WgWjGvzgAkYWYjUOo4v0 ivISogETLgj7JxeCWuGZVGR PKuIubwIXWvmURoHCbCb0hm cRvca4YchDSaSArcMYQtpVU yNYyiaZ1uXyLlh4huwTe8PY fqmnT8FMDpfd62DNfzTQKtZ 6JrW7VnRQzdJYE8LDSgMkQj IUPzUU1ZSxEyAXaBVGzoSkT 4DyW2PHv1SQZZEpSpWiWcMs jaRXbeFJQyTZk0PEw9SSvVH kV3HMv0Msw7UIQwBFIuADex JAt8OHLoABqalCFmNLKmGNI tHPusJZmiB17fNcUgBSZASe CUv5L2AJIbp6W7NSffM7ErW XIuXHBhclxmczIwIEIuICBS MVCuxPZlCDQbxjBtj8PkOGo pbiBsYWJlbGVkIHdpdGggcG O6gTAitQtbZX7vzFBeASVoQ 6Ixc8llboSyqQ4eDHLdKK2a GZBpz3C8ODQub4Q6FRnmz8H oZXIiIGFyZSAyIHllbGxvdy BpXJL9oNPhtKRjdLXcq2Lkt 83dcfM7cITkYRAtiGEnvoiv ZZJtmPP0DsOxdZJhGPQeOLL eBz44UAfsHMK5MWVlY07nAX JCmBYze9EyQ0urOB0zfUUrv 2NngVSmsVpue8WkaNnaepDh YXBvUJJtz7OpFRitZODnJEF zy9SinQEwl0DniVJfSIrtkR 32BONwgNWks6LqBWTcf48zT RDdy0RjcBJcOP3kYWPmRUMi ZYqagSghM0P3bMNviF4eBZH oZXJlIGlzIGFuIGFyZWEgd2 h0gJLnII1fQRNhNOEfUXErI GWcJV6oNDHyJPJhvLLehamz FSA2CRTiDFN3LHJaW50qDAG HxDBdI2X9BFM5doJiG7Aif1 EqqLsfQG2oVUPzMFSaOELnH UReqOXwfPC2nvWlSSCwRjQc JoM9lZvwALKrMQDsVO1eEP1 fKD5yOI84uOAzBKzxa4sfmf IjPOQrIWpcAN79bIJjPZPzI CNIHSRuDNXjxmOltEy8YNFl ENU1mN6wqsTypgJpb2CjyVs 8uPJmMFIuEFTbeMaou9MlSU PcozisXLZdI4JccXchsoCig 1MqZhokHYPiUlApJhW6CNCw uCTht4OqhGX7sTLnSUWsG0P oa51uYK5uNA7tLB67kD6qDQ NlvRdoZ5JdQESgvhPgILMcB UC5PHhcoXPnNGT3HCDmDNte KlVeqyYsTF15XUAnpcUde4U vaWusrdUad4Rlxe9fcCzryr LmlhMvPXKslTaaS9FoHFDzy mScHFKsWAU2BAywySCxCPFt Op3LQjD7LGUpVYr5iM7eCHx pknOvqdEwLL52QSYtzzNtn3 QgpWaveaMzv9Otp43xwsZ1i OuqULEmAKJgcnLjVKCaX6Da u0P3uMIzGZBgjhpeEKTjSvC qlQCpLSXfylwtVAFsV1IqS1 PrnaHpyDOyJGWqojDak9shC FH9XXYvyWFjsKVrIgSdXpde DWJ9x0cdWTAyoLQqSYN3ZPi caWQgNTEwMDIgXFxkYiBPVl SoYoWwJbN9WWlwFAUrJPm7Q DfiD1OJRQWsFFT6OEO9SoQg LhR2UNx7MDMTOl9aTIU4CWJ 9KIMaSXI7HeG0DDwljNJpSB xcZmwgXFxmIEFyaWFsIFxcb mS5WDDuSvTfDh4oP09peQMR mORupKRkYU88aZOvQjtzKJO wOtNpEChdLxWbQu1nAyQtDN j8VZVmzN2tMu2hiHFcyW0sE DkdBmAnIMYen4c6iWL7rWSw xOG7hBPqhRogHW1euFXmTOY gP3Lhq5owibIowF4uXFWsHB 1kJOSza9S9OLLkl7B1OOvtx 3RoZXIiIGlzIGEgdGFuLXBp uyppoC60RRT9NRXneYYkROu 3BAo3ReRpW26dcS0bmEXdB0 HqTCPzQRXoJR4iqN6bEVHyB CBjbSBpbiBkaWFtZXRlcikg h4e4kUQyJQJfTbI9PLRjYHL 8EPNfNPXebDFrxCLrA4xjSN TjHPFrCFVcGS8apUxzFJ5nW TpsTEOhyu5bYEZglkQ3ZG8v eIkmljOsipJhw69ut8WdYLk tyWuzqGGynMbar9ExeUK5NQ 7qi2aleJMbmk4yoEdobiAqJ Y8utX2iCKCmg71feQLtuuQ5 vUStAMUlRE4qHB8lHLreEHi wBBV9PLK7PNGfzFGxp9jrfy 4gIFRoZSBhcHBlbmRpeCBpc pWyFQIeAYgtxUBtFDO3wM9g PTTzcX2qjsV9BHZcDZItoN9 fQO58OPAiF3IeTS5tqKPjtL MbIQZ3rHDfOHafMhQ2iHOlj Esrb2X8BGOzQURyYC6ebBab t9AsuIyrVBInpWHeBVi3ZkG qUMezMEw8eBTaQCzqREYlfL R2EPBjMDXgHO00LDYtQdQqH CauTOfuuMdjtIgnV5ryMAZd WZclSZRrNuEecV8xXoJaeyE lPL02LUEkqdIxd3SqgKbtrb FfMMStIGD7Qx9xpOAmAE2rc RFmOFEuo5YlljP7QSKkEZQu h9VnUR9bLULtYBOvrUMmzO9 kzm6epBGoMMGzztGTbtpcO5 9uUEoyiFeuOGSSsrNlO1Zxr ZBqtCedNHwpeLPiY6xlNILg prcxSMRaP1XodVeqpjFzq7B pMrvrIFOsYfJ5FPStw1nbtY QiHJ3cwinrwsXpayPoGKKnI WLpNUUrcZFaB7XpEHM8jVYh RXGdJWSsU7GjuBOmNRPgRqW UEHSkAHRsfbBlnZy1YCIgvk 9uyyEqHBS4iL2rjqH1wzUzn mNsdWRlIGFyZWFzIHdpdGgg tr8oeNvnt5boQXWyfQKsYJS qPgTzJ1ScLFaUu7dbcYgjn5 VjdGVuZFxwYXJccGFyZFxzb L7yUrVvu0uwaKz4YIzvhwI6 OLBtlm79VBdrHVVzV4EvK3K mNWznFWP0NZRcOrBnJCReSN 8BYxIfXKzHKEtoAzM3YpA1B Kr4YVOUWrVpFkXcMnecCEmn CnkpDGp9OCe8GYfWUoA0GXg 4Luc1GKtlWPCdULesMVk7KV IgXFxmbCBcXGYgQXJpYWwgX RacP28iTnJeWROGYwBUd3W3 FMTxo3Q8HCedW8AdAQFvGVB hclxmczIwIEQuICBSZWNlaX YxDQBxcwMwc6WiRQlfaeIiC RYzpMIlKCfdrFuanCI8gAXk yQbvTQ7woFKiWTPuL2Jbn4l ckzIljB3yKBUwGO0qNEBtb3 J6SDEfs9G8ECwom5PsRFPdE GHiLTNwAYEwen2qsH9lDUNs PDVvf1axWBDrq4B7NADlvlF xlEHioNTgwILij3GfsH1zRA NfRbZ2YQPcEhW3VCCtCbEht yFxJC1uNEggHO5nYSvaIR0f NZBhThXsW3ViF8pvKG8fxMC lk4PfbWu6bSVcFHwtTAIagV 8nwS9nD8Xvm9E2bCKfBWOux 2dmvPijg2XlmYTkDHuaDADj oHDsQXeajA9rRoYqr0hkpSt 9PNdqpoJ9GAAmxv45RXzoAK ScO8HnO3GgXJseDYH5TQLrJ zThNDCvBI4CKxOnCCpEHDxt QxN8SiT6EIo2PTWFYgKxTjF gNlepPDz8IFdpYPs8UIv1QW dFYwS8RXz5Ozz4CawqOPPnX PwxKVb6VYOqHWgvyBSfFFLq JOYbKRalUVrjH54zKpSdUPW TUiZPiZSlaKExqr9LSNK6cG guXHBhclxmczIwIEUuICBSZ AVxjLYnMIRxriQxu4SyMSgq biBsYWJlbGVkIHdpdGggcGF 5vPKwfGpvXI5ebAEmHEQrA7 Ufy9hqgbKpbK8qYZQwHI6sP GQ4fABkyPHgi2c1iPQvFLN8 aXgiIGlzIGEgaHlzdGVyZWN 3p743JIRgPCMxg8vuV6XowF zsz3YiJ1csBM7ueWPol8Sva K6oPJM8UTujDFAtDYY8SVHd M15hIGi3w1wjjPjlri7xZFK uJ4fdq7OjYQ8mh2kftWAdAS AfWDFjjqgmKVIdsZ9jrWKbJ RAxoOn6NYHjdJ64JrffgT2z BKjrneDnOUniOPH7hFTehBP bNRYiv8LnNTagiWals8coTN VwMSZbJTW9hN0bQJ6nIVP3t rQtAWW5LZAqKVaiAGticow4 aCBhbmQgNSBjbSBpbiBkaWF xDNKvxcP9sNGdGBD0fUEsuT OzMC7ur2VoxJBvlD5mPEAeL SBtZXNlbnRlcnkgZGlzcGxh mECftEMscWstrZAcp1FpzBG yoqZfOLVyee96sYj2QCBaw2 K4eMDqEzQxTLwvz7Kaex3un WxlcyBhcmUgYWxzbyBwcmVz CV25AM4dWNFyDRCbPZVqn5W kt7BnuRasSYAis2EbFoJcUL adOBDwjf9yEPUzhhQ1PI3ux VvixqWvnzRhgLWrMU7lzC6f ieNfoTQadI9jxMock0w9pSO txkTpdGHmKBCeotwvb7HpmJ ZvOq7hWMKhp98lUrBqMMkgL XLhk5ChpRDkg5F4cO6aRX3o HOIeNMSsh6wihOScpnKmeSC cR3tsPHS6mrY9hUHbaM6msT FwsS0mGVS8dlXlZ6Mfi7Bsk GlbKRJ0FWS8soW6oDIuGVFl bWUgdmlzdWFsaXplZCBhZGh bs7tsziGhUODTgIVgJq05WY gbnXMaw2HcdxKyDTCoWUQwf 2UhPYhzQYU3kgPxhrGxR2Ry TL4sBdSeCCagkIU7HKBpFLt iUHYnf60nqwGvu6GbbNJzFp K3wMJsGuPqNMCnJKJuRIJlf KJtp2EdWHfjtKeadMUgtHOa SWOqobopV13iw55iYeSiz2d huxTgijArd55oakOyhDn6AO itTQFmGXItCEQ4qW9oCQhri GggZmxhdHRlbmluZyBpbiB0 uLXro8uakB9wNFGxi3dzue6 kTW5zOTyfp7ollwTyCBYiVK taSP68iOTvVFRcsO4eyQxvU EDyiE9zxYOdqGIzh0SlNqRl RHVlIHRvIHRoZSBleHRlbnN dbiOvZFAaRGKbzvNeUB1aAW SuDAE3nSVmsPYghY8pbQsiK YZrS9P0zLB5pDHgqTGvuETn yeLfrLQkIPUwYFX6yX2nHOz iQAMzNOJtQVE0zqIrRKZwr7 Vtg3UbNG7tjONeAYZpbtWGu HCtsDDbdzOzAJ4aUCH9rvEs PBcdUvCtxIHaCs5OOHthIa0 dZSCeXKjEYZOlNAayKGK8Tu OyQ57dWRKpNNVsFDxttZqnS Y9fXYT4BTAmUNWeU6Kzrtw5 CG3qYFU0uzioLmRjGhCfhRZ aGmYgC94qn1c9fODqICQfW6 2lx6lkaZnxu8BdA9SvwbvcT Mwyj5AtSHGdQRNsqRFaO0gl ZCBiaWxhdGVyYWwgYWRuZXh zXqRHyRGdD36pn70ttHZvDG fnXYZ5fAieCYK7WQUjLAMty X2kwRmuQMZ2FHA6vtPrbfY8 rEMkjU6mqMEehT0oEHG0pcI fM4AgTPOWiTPcNV45HJWwo2 IgdXRlcnVzIGhhcyBhbiBhd XStL6uuUSMnwXXaVQNdYEGn hpc6f73eDHboqMsyv6CuTEA tFRHnnSQouQEaQVMct9tyJU Tnw2Atv2Cvw6d7uKQaiUf6l FSuPZT1XR4qn8dpeZQvap4j dRxbog3bJBCplBOmeHMhqXE lpeT8jNDxcmAeINLeIJH6ZS RkuSU1CJAnwsE7cfAejWOab RK6HXOjjCTdIJFiestgr0Lw v1TlRU1dSNOfXJJdkoYrwur hjlW9yUCcsQEbYXDYhEDllR RlcnVzIGlzIGJpdmFsdmVkI ZmkmY3sNX56KTHig7ZsCR7w ORVap2LrbgmeluSyPKs1GBC qeY1pYSsnvLzcyVHsRAMdUD E0QPLgYxYbgYTzuCNqKGWfu kgqm2YzlDGodUW9u4P8ECRb dXRlcmluZSBjYXZpdHkuIEE wvCWnB5RgbVAaUPlhb5UvRC EayZ54ldEhaHKcqZTvJGPkV DMgeCAyLjUgeCAyIGNtIGlz UXxjQR38xKCkHJDkiY9toZp jRBQxX4m3HST7JPH7czWohN E9t6J8qM0aAOMnTNAun2K3Y SKpy9CdcBErwcWaRbBRdPLj dXRlcmluZSBjYXZpdHkgaXM gdGFuLXdoaXRlIHdpdGggbX HszMxeuDHirTItSE2ePUFeL LHleIviy7OqsG61lCY5pSBk F7U4vQB9ZfNQqVJnQTXhnuZ qRDLuIoD0KCEjZ70fNPLnaa E4jOa3QVNlmMXpb8HxHMTbi 0MhBxsiISUaIJStM1SjIXZq AZQel7i6hSUrmEYjL2urVOK 6pfK1nIBsj6KxXWKrv9ZadB 6ynLtqvyZvPgG6tFIpSC3qc 12oqGXffR1wUMKrMSJpsbXu bSH8ssg0jUBwetSiUQPaoBo racwqbTLmsDrqBB4uMPjjUR HcsBRqvR7lMMZ2NPY5moPai wRmVNU4xS8oJGIpwE7oNDht cGxheSBhIDEuOCBjbSBteW9 tZXRyaXVtLlxwYXJccGFyIF JtCDYkNKT7ATQ4zNApwTZdC WBmscB4IKBah30heXJ4ttDh RkBtHBXsrCAjWkEqU52nQkq eRkSfTTUeACYwTXlpk4JpKF 4gdHViZSBhbmQgYSAzLjgge NQcZnCyhXMmSHToOY90NTY8 LiAgVGhlIGZhbGxvcGlhbiB 1cKYzMEYymm2cFVThwtK0QS 5mxFuoxwI6rXZjKW68kYCzr UjyCBUtre22gIz9YXOgo3L1 bGVzLiBJdCBpcyBzZXJpYWx ieGJbPIO8eW6sNRZabP6nYT bxrPpbkFFvGFUkkcHnyI38A Kl3eZAjCmIsSCglMGxxYrEn t8LcurfnaGOhx1TpzDLrk0l alTQkWXDzRZD2aMDfQDWwdH FuIHdoaXRlIGFwcGVhcmFuY 3XwXIm5DHnnLWYvq5QjyXKp STMjVZUjp3XnXSlhNOV9MZ4 fzC9xpQXwaM72FKH3pQLmtU JmYWNlIHdpdGggbXVsdGlwb ZLprTBsUHa4hSDmzKkyg0mx lRLsAGhpzINnHLkxu8xtviS vSMRYzxZwESZfrxl6cATyOE FzxpL2bhBcwDLkqF4uhVEpu BJeqqUpCuuoYL3qaPMpTEwy brRtIZsnMUCfF2t9JGRedbE 6JOHoshBpu1Oic7JmqB0jLD QlbiGpChCRzURqvpUmi0DrG CBlbWJlZGRlZCBpbiBhZGhl q7srpmQnDP0lDTOwusn3v30 biG7eJQ8oKUDxziWws6LbIS 9yNGCoPPB1cZKmmRKhHLNlG ZE7OCFlHAXoSZOhiSxsnZzk ehH7zIKtDQJmJQObmcMeijF ryMMwLUVwlKQerzjwRR05NL zqQCRbnBPuIW4fEHHoJWToM JApTGBmpM8tZNOuJOeqC5Oo XV18au5wBDMzyftmxFXoMFG 0fM0jbrNataEusIFeEs0kfL BmQUQiRLViq8pmkXmfYP37S NZxHB3myTLpYJ3tzQywSJYx dzSwmZNiIVGqkUB4vG7dQYR mBYUlAFSuPHite2anpmSqKJ IwaLrxpBkxghJ0hVZiFVs5s BEqOMMpHCKzt4bqbF6oVDLp EPMjeAXpw1MzImZdCWYyGbF 0oBAlm9UfmommsHPzmSQpDF Jrnxfrn4x3yOExRAecaMD9S I7wrqifV6B7VCM8fbYyW9Zl ED7cAV5sAKrxJK15jKZrIEW aESYjn1WcgDEofDK7FJCiEa DmOZciJEZhxMtwvEhbvkA1f COgZGTkgFTccvOkX03mpa5s jSGbGMJngdV4pAYpDLTdZXJ lr33bEVKlSVI0sUXbWnfbFu AxAOCewrZdl3LfF8Hln5Gpj SBpZGVudGlmaWFibGUuICBU bMLxf2Egi0RtPMqsSYIjdt3 xvT8rGKdunEtfnFAxAVgurW QaMK1wSCEdUVEaRD6eRDZfW NPbjS6basHrlhGaxI9vu7wt lK7vEUYgkxDVPBZgVVSnarZ yhBn6BUYaFEX3dY3umpUhto Wqt9FjqZd3jIMuVzPNdK41d 1soPYVnyvPlfvQhcWOcFZ0d l4QpqBmmWWMwFKOzqEXcRrT gkFRlREQoysCHagggD43gJI akZRvaJHQtY6ZcthepXXFgj 1IlrJBcx8cvioktTY0fpvux scdwoH5jRUKwlYEjpEZzuRn jFUfiD07dz51iKsPoOGImwY 5ccGFyIEdyZWVuLWFudGVya Q7uQSP3RIN4c3ngzU2pEQZw QTHzSDNzf8UrleiofjSgJWM 2vSbfcZPrZYSmfhVNSWA6kB 7lWRDgHMK2KAdqwnEnLWLau GYdoOefUHqiA46yi96mSiWg SUPjcF3boGciHGARIs9psEA 8YQxdG87oy89oZpTtYFOncT 0upORlISSwLNFjxTOan4Qts SU0uEFjEUImV8Bug29bf6Ja l1lhxK1hQOHhi4tglxpzkK2 wUQS3CTJ7RGO7fEfmsEopT8 xvLURkSAGsN0Cyq50aj2WuD B04QUTef8MalPAnkzXnSUBy nqXVNXMxXUJhMUZ1fSbjrIy cZ3uwWSFtTXZuN1Gyk41rb5 BkuX5bgHSxkZ2hTEG3VUJ4w rS1lLEuKTHwoSUbTN12MCCn v1ZrJCWkqmFANIAeTWQ2YFZ vASs9nZ0hICqzGzRgiG05pW rhn96an0Hon9BgxGwquxZvA wCjo7V7GTXxg1VknLLxznSx IHdpdGggYWRoZXJlbnQgYm9 4HJcyoXLiFNWeZn9xMZC6tn I6kGP4QQMuaM4ofHZhoU4gv J2tnNYclY7fDZM7XKX3l3rv MLBzWJT6XLFgxMIow5QmeEZ 4kPFgRBUzO6Hyp53qs2DqZI 39PGQux7PnY0Gpdvb9FZfcf tMiOTB6FLEzyQXqi4NhzEB7 dJSnGGJyD0Hhj81hc0EziL9 oaWCdnB9fKYSljcZngTrhPA UqINNtMYLgyJAuv5GtmTZ5p ICySZLtJ4Xpt30xGA8kSSaw InKbYfDppJ5rnIXeZMV4EjR bAO3qBIHucAQgjRHbVnstLA O1GAPisEodESYLOvNxSHTmE EnhAhJrg4UfwducArlnIKX4 KPTdxXZlAJGxOt9pRZ0oYZM mSXK8AG9en8iybcicAKMhNF EqZZrgobHwIIZ5RYLfR1y3L FPkrBlwuWvhinH5cTDlTLTn PWNfl1WylTDqIPHuuM1qsal mPJrgwiAxKYD3GAVcZkKdoM dodCBvdmFyeSBzZXJpYWxse WCaLSO3eW5fKGNjHMNfCK7I FwPkQO4jXABRSwKdNiEmNCD eHRZrobSpA0NbdKOcq9SiyT yxmhZaFIYfziNPUeEmSMC2P MAkk4DcQlhvRCTevTIqkK7j wpHiTFGyEPCeX1a3OW64SAA 9DCTpojPOUiToAQJ9ZRVzrm 44sBb5MPUkg7X5tLSdRY7jB LRexya5m94ywR7wlVJaDYVq DQ6ah8R7aXHanV0zzDPfvXW rirS3jHPszTPeAMG6DV4AZH JeDixuQWBvkbKgHUWkDUP6r F6yGIdlgAqdvFGcBPbtfTWd TR2kSMEbTDSpcIIgTLJrisS VRFvzAHEfQ2AnD3GojyXfvX IkGLXezlNik1owXGS7HXAdp RNlhKWdDqZpLjkkHPH6y7gg JPGjbTNuZEZ3IXhniBFzBES wMDIgXFxkYiBPVlIgIiBaUj I0SXwsXCRvNMy8XBowQ2SOJ IXfBLF6MQR7HCOnVeA7ACy5 FHSPTo2qWRG0HTM8Qmg4DQU 3PhL4SZupjQFdALoyXshhJZ epEMSaaUFwMIqgdnH4PBZoQ vUkAe2lXRHghkRlRMgyU7Br mhf0LkueJOOdIkAvLRjkZxN hCh5sJfZfRPk4UAIniG2iVg 1rqJUnuQ8ypIWiFFqgYAQ5p WLwULPgaPjfddUmmtHlOW9n LIEzF1Mdf4Mqc05sxaVaZjV mVVUwCIUuHuAfE4whx8WaUI laH7TbBY88ZkRcvnPpBPltk HY0YTzkGV93JFLjDHFrbq8t qD2xZPRpyLA2gZVuNJNwpEi pJ0Pdz5Crn58gdEE0yHAtgC Swk8d6eLZtwtTfbHPeA5uaY RQryJDqyWDeWegwpv15noJj oTMjJOQtGmD6gCYvsIBssKW jo5LcsF4uXVKjBuJ3NXMkUn 6uVDWuKJBdcUTytc5aaUPsn KSjGAJzBBfhYMUlw827uXY4 lABuBD2bZGwtr0TleRsmrVZ gtiZfUwomQefrGW0bPPGyYB WoQKPDaVQdXEd9AJKvGRugb 3VyZmFjZSBpcyBpbmtlZCBh gkEdz5MiW8cyQM7ogLFpr4Q rnKVarJnwi0EmmPiwgrRdHB DuMHPep5DvUElqMHV9MLbtw 4xmWsF1kBbhV7X3YJX5ufTb Q3HmWQ1mLBYiuXGbROdktFK wEUUtHeSdfGUpsq8ntFigVC 7fMRZ0vzstBbJ7FdYmrXCvI jDwcDIzGmWfG31pBDNHVBRy GZTobkRotHe7PESlNYX4vX4 kkqPbimQac9KbzBl9uXEeVi HdwFOhTRQwafBMqmvpE06sU UcwaNwmJHQBbFKpWFA8nBCo viYyQBA9piPfW6FarSHrCEH qfhAGRJV1kF2jWIJoVMG6FK EssgQLOH4TSQsqemIqvxQzG H05UXQgjyXdi2PjuFyyvdCl i8OvmVqkv6LeDJTeDIxbS1p 7ZCPebQtrRAUhqq78gSg7OC Sik1P7rYEilGBvQNL7AtBPV BVdeYoubvKfVPUmmFRqr6Qt hDT1pHSzRTHdI7Uyz22tTZ9 mFY5bUAH8ELVfxVEiv6KyWQ Xpw0Y9VWazJGLbK0BzS2Nbx xQmrJZyQVXogoCzf3awJZH9 XHNsbXVsdDBcZnMxNlxwYXJ 0r4jpIZQarLXpSLM8NLqobB QgNTEwMDIgXFxkYiBPVlIgI hMsMqA6OLtgUDYiKSu9ZRnp X9QCUPWiQTB7EVWmVQl8LfR 0GXt8ERJBKu0yRGR9XnR1DX kjYQL0LdH5VKznlCBsZHtiA mwgXFxmIEFyaWFsIFxcbmN9 CCVdVhTxB1TwXPqaNMRwEeM uAJvhb7IvJSWWtBtsif5vqS DyAWYyYyVpFp9lSGHaQ9Ojr fAkADfhVGNvul6hqPpzFDzq CsNrNRSsj7d9sIRdFRRnWU5 6T9JvgxFvCPkkDHXhTMTcqV 7oSF75uTAcdzGswlGxIfXiS sNiuTnju8RpUPFgoDtxnmVj YXJlIDIgdGFuLXBpbmsgdW5 wuuedqnPfAFWxfN7ipAFuDD liBQ60dbUgGeGue2rsthdbL KGne5J7VNLtVVHrnSZajqlg Pp95VEddIT24TQihOXUriwW lFZ65ZLadFZ13SJpjYQXvoB 5gOBVlXRBhsGWhn2LyzOTlp QKsNMWemfwmf7x3kRYyohOm XYSjf69nYgJcZt8ibLEga5Z zIGFyZSBpZGVudGlmaWVkLi PrA5OnU4xxPM2nrQPyy8Keu Qx7zSBfGNoeCKUxcS5ucY7l Y0Wzl4P6oMNdNeUlRoOjXLC ntddxJDDbJyM3AWZqwCWaRP S8KJ1smXhyMOXaQ9WlF4Uec pJ0XTGecm6= INTRAOPERATIVE e0zreBPvMNGbrMMRRYIsGam CONSULTATION (test esnGyGHMkcCFaT0PtwucgVA code = [id number]) pwBO9kZG7fmSyzyGWswIKyY X6CAKXlMfOsDWJjoFMtjoXk QaWtSYOifZDfuVR4LOCgMK1 sykvuKPgbLLamWQYnfeW2ID WqbDUsP5KyZQTcDT1vcyxfN VW2PVqngR3iryQEYrrdIr5y dHRibHtcZjFcZmNoYXJzZXQ gDHNmnFizIIVgFUt4rE7WFe bhWKC8OPQJTatmAAZyQP0Ft 1ajDHRiiWSkJXI7TToxuLMy BKShYHGjNAj0UXYgXLfhvVG gEG9fvFfoYwplrRfqr5GogR BcXGlkIDUxMDAyIFxcZGIgI C8KWlGiTGhSHGibUyM8WyV0 HEc7NWDICeFkEwDxGffcZDV 3KoobYFl5VYv0KBzFFqG1RC mjQdWrMnUdACRzKUgnZFw1K DIgXFxmIEFyaWFsIFxcZmwg KXsoD08dgSqouH0iAF9aU15 zbMFYiCApbMDoHG73rYNnKx zyKKTyKClkUOJxM33ze3RCd 5PmUR9XAHz5jeYwshpeaR8k QUWwyiTmSEsnzEHuD3etMfU zGOSGH7YmDsLvDSoAOOtMOY dNLCBSSUdIVCwgUEVSSVRPT aJXGBJFX9GZTEYtISWYT2iX BH1FLzkygC9oFLYdOCZvRFC uKMWvU1HVDKcFBA5ETiUQVH UiFq8DKQTVRZaMR4CIMQErI 8IbR7YDT2iGC85YVjEhCS8D RSBUSVNTVUUgUkVRVUVTVEV EXHBhciANClxwYXIgDQpSZX E1sCSyWJMklX1ayIXvEOOhZ TIrHeVBt3E1AYwmdlVimGN8 ApVuTWFIXKusfOzcgW8oEJH kK57yv4TEw0DoZADtNUkml1 ovnUulj2RzsSBxLLtfPUZmg UQaIPompX6xDeMzn8dmbAr1 GRzwmuA3TEWuup8CRxnqnL0 eQjBbv1xotRl2KSNKJngsak Q9g4uczCwer7QlvVYrCS8ID n0= MICROSCOPIC g3kydZNhAWRpsLD4BbVuGLU DESCRIPTION (test code rq3kvb3MopTUtsAJsYOqkvI = 3371) DdnxXbgy24yYJ2kH58CO8dE WGdUaI7ASNbmiL6Uhr9FSSl MIBpcGDrZ187m0vpr4jdqhO waHV4aHxaVGLahhauGaI1LM jzCNKoybsoYHc9WYgbCPIii QD5BZXwnWXfX8IuFEMuPG4m wme6MKV1UJkrIEWkLeI7TAJ ohANiHZXrtKpoTKiaf699RQ M9OcIoHJWaelEaoFsmtY5xR kGtBCUYZHMal9ZvAUMzFRVt clxwYXJkXHBhcn0= SPECIAL STUDIES (test q2vlvDWaCOZuwKE2TeCzXYT code = 3376) gu2tgu9QmiTHarFMcTUbctV ZdonFgkv25dUX6mC92CP6eR CWqUhA9POQvwlZ8Lnm7YGDn HMCqwXGdP063VDTtHHIlbHg iayw4wO63ADYatQ9aiPDvDQ erkcLpQYjgwlFtqrQfJph4O AD3cNvtBYJgmsqkQcF0AKcb LITgshkjCAf2PEamMUDuqBX 7WHVyvAHhT5IhDPOmCW7cxn m3FDX9EExjTZXfJyU8ISJxd QPjWJCyjFakWGmhv217SPP5 JqHqZPGyvoIlvBlkpV3pJxH yAEquBtJdTG5uF1IkJSCqpp UpjNKkJNvjxPWsi2L8CArda vDffTpaiTzlmOOpBf3lrKUh v5YijYV9UPC4ZLQmGlKqRXW qdK6kiPMsKIajKPZnRE9uME ovFHA8tO7kAHGsaXmbYMIoE PPlh8DiaQk1FEXiFrMWKUed ZZLkqwIcB4UxXDolAU4gGQR jl2coXJJhvzVkwwWhvONpLS 43JMIezASzETDgdJ5nUbRak GFyXGZzMThccGFyXGZzMjBc S3KzRVKck4SyPMY1MCAmOGS bMOP3FVWwXFM8mO6fUUGsjU e8fURabNI9XBJsxzLnstPqn Vtuuxjjo0F2PZwbct7jyXPe XHBhcmRcZjFcZnMxOFxjZjF ccGFyIFRoZSBpbnRlcnByZX ShzPxuozZfUvB2aTwkQNZwj 2QjmP8fgNNeRPPrmDrsIOTa EEWtSbZueG81ga2jeBW8j8N pAS3eq5FjfSXzgvZznCAckU XxVQZ9VZzpsq8noMHiRVPpj zLEb819fw6uDQLqnLTrdjJM uTRaxZ2tGMnoREvrVMpbsAW rWXeqm5ycSTNyh3s6oIXbQL JowmYtl6lxCGighgFeHOZha VDqwTZkPTQob54iOWljkDml gKxhSZWkd0YneOsvc3ReJwJ nYQedo4BlK73fxMFgtIMdmK snFZSzokPpIQYsd12gm5dfM XLuErB8wXSiyEF6dVAspIUt l4NwqXibRGCsy9naOEJnpy8 tfhlxuKPlq5DvrG2xndvcLA dijHBldmJqPDXim5g1lBHbH DHiXERnCMkjsHp7YMTso474 jg7mhuE2lQYiEEA5CQmsXRQ sZSBhcmUgZXZhbHVhdGVkXH KfusQtCKPlsvQDuA58zf3ku WF9d9JoCP7ar0DjsKP3LXKu npobNRywbOJpoZhbAuY3WAY wwSOzBd1ynJRwJIJ7HNLruO djssAOgN6aYRUsZYh3PNUuO xVsYvunjcQTIIOdR9LwYRBw xyVwnalhXLL8dX1rr5i4QOy jKa3gPWKtxcflt5jgjmGofT Roo8PrFGNzniFre3TnSECgm jWlmHXhVNUtbmHcdl9uliJr YCCzKCVvM0BhtpacgIqnjxW 3ZXJlIGRldGVybWluZWQuIE n2EIkiaaOiw7LeNtTeccUhv EEppfQbAF9fUNLcbJUelkPj IDI5LVXiRJFBEyRnCYOuf5O pPE7aEIRroHksTCAinX2qe6 QdKDKbw07rTUGhVGPEUIXdz GFzIGRldGVybWluZWQgdGhh mHYfjNPyLYJeKMXuFE1rIES asrDhcTHvr8NzlGVtglXig3 FrnxZmKIGvECX8MvWWdPGnv KNeuFQvwnN5a4AdAQPaivMq yUhwxLMhnIYwdNIgm8Nyad2 iOKIrt5ikxBwxXH4prHTnIV ByZWdhcmRlZCBhcyBpbnZlc 6XoU4U3fR2yQXkre9NbIp1k VZIhi6OjuvNaZbLShAmcCSo pNm7zVGNnuetyqARzD6AqaY lmaWVkIHVuZGVyIHRoZSBDb EwauAQzaBVZPRFaewP9r7Y9 TRuxdZEdaoOaWE20LUXiOQ7 ynBChxKJph4MnXMw0CZTeL5 gTWW52BPrgQMIdbXUaiGqih MTxKRYfUGYuqoHawe3xtWgi eZTqd18vmLJ2nCV4OYPkeN6 zL7QlHEokYq4yAFSkmfjdyD YfeNqiFs0zqSGxmB== [facility] [id number] 12:53:55Surgical Pathology Report Case: [id number] Authorizing Provider: Ronaldo Owens, Collected: 03/07/2022 09:04 AM Ordering Location: [facility] Received: 03/07/2022 09:10 AM SERVICES Pathologist: Kelly Adams MD Specimens: A) - Soft Tissue, Other, right diaphragm peritoneal nodule B) - Soft Tissue, Other, omentum C) - Soft Tissue, Other, appendix D) - Soft Tissue, Other, transverse colon mesenteric nodule E) - Uterus w/Cervix, uterus,cervix,rectosigmoid ,bilateral tubes and ovaries,bladder peritoneum and pelvic peritoneum F) - Uterus w/Cervix, falciform ligament G) - Soft Tissue, Other, procto donut rings x2 A. PERITONEUM, RIGHT DIAPHRAGM NODULE, EXCISION: - HIGH-GRADE SEROUS CARCINOMA WITH PSAMMOMATOUS CALCIFICATIONSB. OMENTUM, OMENTECTOMY: - HIGH-GRADE SEROUS CARCINOMA WITH PSAMMOMATOUS CALCIFICATIONSC. APPENDIX, APPENDECTOMY: - HIGH-GRADE SEROUS CARCINOMA INVOLVING APPENDICEAL SEROSA AND MESOAPPENDIX - APPENDICEAL MARGIN, NEGATIVE FOR CARCINOMA D. TRANSVERSE COLON, MESENTERIC NODULE, EXCISION: - CAUTERIZED TISSUE INVOLVED BY HIGH-GRADE SEROUS CARCINOMA WITH PSAMMOMATOUS CALCIFICATIONS E. UTERUS, CERVIX, BILATERAL FALLOPIAN TUBES AND OVARIES, RECTOSIGMOID COLON, BLADDER PERITONEUM, PELVIC PERITONEUM, EN BLOC RADICAL HYSTERECTOMY, BILATERAL SALPINGO-OOPHORECTOMY, RECTOSIGMOID RESECTION: BILATERAL OVARIES AND FALLOPIAN TUBES - HIGH-GRADE SEROUS CARCINOMA WITH PSAMMOMATOUS CALCIFICATIONS INVOLVING SEROSAL SURFACES OF BILATERAL OVARIES, FALLOPIAN TUBES, PERIADNEXAL SOFT TISSUE, AND SEROSAL ADHESIONS UTERUS AND CERVIX - HIGH-GRADE SEROUS CARCINOMA INVOLVING UTERINE SEROSA AND SEROSAL ADHESIONS - ENDOMETRIAL POLYP IN A BACKGROUND OF ATROPHIC ENDOMETRIUM - MYOMETRIUM WITH LEIOMYOMA - UNREMARKABLE UTERINE CERVIX RECTOSIGMOID COLON - HIGH-GRADESEROUS CARCINOMA WITH PSAMMOMATOUS CALCIFICATIONS INVOLVING PERICOLONIC TISSUE AND SEROSAL ADHESIONS- UNREMARKABLE COLONIC MUCOSA- METASTATIC CARCINOMA IN ONE OF THREE LYMPH NODES (0/3) - PROXIMAL COLONIC MARGIN, INVOLVED BY TUMOR - DISTAL COLONIC MARGIN, NEGATIVE FOR TUMOR BLADDER AND PELVIC PERITONEUM - HIGH-GRADE SEROUS CARCINOMA WITH PSAMMOMATOUS CALCIFICATIONSF. FALCIFORM LIGAMENT, EXCISION: - HIGH-GRADE SEROUS CARCINOMA G. COLON, DONUT RINGS X2, EXCISION: - UNREMARKABLE COLONIC MUCOSA - SEROSAWITH ADHESIONS AND RARE PSAMMOMATOUS CALCIFICATIONS WITHOUT ASSOCIATED EPITHELIUM Signing Pathologist Direct Phone Line: [phone] signed by Kelly Adams MD on 03/13/2022 at 12:53 PMOVARY or FALLOPIAN TUBE or PRIMARY PERITONEUMOVARY OR FALLOPIAN TUBE OR PRIMARY PERITONEUM - All Gquhfbhkr6mt Edition - Protocol posted: 07/05/2021PECIMEN Procedure: Total hysterectomy and bilateral salpingo- oophorectomy Procedure: Omentectomy Procedure: Peritoneal tumor debulking H ysterectomy Type: Abdominal Specimen Integrity: Not applicable Uterus Integrity: Intact TUMOR Tumor Site: Primary peritoneum Tumor Size: Cannot be determined: Largest nodular area in the omentum measured ~ 5 cm Histologic Type: High grade serous carcinoma Ovarian Surface Involvement: Present, right and left Fallopian Tube Surface Involvement: Present, right and left Other Tissue / Organ Involvement: Right ovary Other Tissue / Organ Involvement: Left ovary Other Tissue / Organ Involvement: Right fallopian tube Other Tissue / Organ Involvement: Left fallopian tube Other Tissue / Organ Involvement: Pelvic peritoneum Other Tissue / Organ Involvement: Omentum Other Tissue / Organ Involvement: Uterine serosa, pericolonic tissue, appendiceal serosa and mesoappendix Largest Extrapelvic Peritoneal Focus: Macroscopic (greater than 2 cm): Omentum Peritoneal / Ascitic Fluid Involvement: Not submitted / unknown Chemotherapy Response Score (CRS): CRS1 (no definite or minimal response) REGIONAL LYMPH NODES Regional Lymph Node Status: : Tumor present in regional lymph node(s) Number of Nodes with Metastasis Greater than 10 mm: 0 Number of Nodes with Metastasis 10 mm or Less (excluding isolated tumor cells): 1 Emery Site(s) with Tumor: Pericolonic Size of Largest Emery Metastatic Deposit: Less than: 5 mm Number of Lymph Nodes Examined: 3 Emery Site(s) Examined: Pelvic, NOS Emery Site(s) Examined: Pericolonic DISTANT METASTASISPATHOLOGIC STAGE CLASSIFICATION (pTNM, AJCC 8th Edition) Reporting of pT, pN, and(when applicable) pM categories is based on information available to the pathologist at the time thereport is issued. As per the AJCC (Chapter 1, 8th Ed.) it is the managing physician's responsibilityto establish the final pathologic stage based upon all pertinent information, including but potentially not limited to this pathology report. TNM Descriptors: y (post-treatment) pT Category: pT3c pN Cat egory: pN1a pM Category: pM1a A. 30339; 60716; 55719; 54828O. 86879E. 48284Q. 15723N. 47943; 38763; 33561 x2F. 99400K. 14512H. Soft Tissue, Other.A. Received fresh for intraoperative consultation labeled with patient's name, accession number and "soft tissue, other" is a jean baptiste-pink flattened piece of tissue with a glistening surface on one side. Specimen is submitted entirely for frozen analysis in cassette FS A1.JAB. Soft Tissue, Other.B. Received in formalin labeled with patient's name, accession number and "soft tissue, other" are 2 yellow fatty strips of omentum measuring 15 x 4.5 x 3 and 36.5 x 9 x 3 cm. The specimen is serially sectioned to display areas of hemorrhage, interspersed blood vessels and areas with cautery. There is an area with a nodular appearance measuring 5 x 4.5 x 2 cm. The cut surface of the nodular area displays a fibrofatty appearance. No other lesions are identified. Exterminator sections are submitted as follows.Section code:B1-B6: Exterminator sections of omentum (2 pieces per cassette)B7-B15: Exterminator sections of nodular area(2 pieces per cassette)B16-B22:Additional electronics parts sales representative sections of omentum(2 pieces per cassette)DEBBI. Soft Tissue, Other.C. Received in formalin, labeled with the patient's name, accession number and "soft tissue, other" is a jean baptiste-pink intact appendix (4.6 cm in length and ranging 0.8 cm in diameter) with a 5.2 x 1.5 x 0.4 cm attached mesoappendix. The serosa is jean baptiste-pink and smooth with multifocal jean baptiste-white nodules ranging from less than 0.1- 0.3 in greatest dimension. The appendix is serially sectioned to reveal abundant fecal material extending throughout the length of the appendix. The lumen is dilated at 0.5 cm. The wall thickness is 0.3 cm. Exterminator sections are submitted.Photos were taken of the specimen.Ink code:Vida-proximal marginSection code:C1: Proximal margin en face and bisected tip, en faceC2: Exterminator cross sections to include areas with nodulesJAD. Soft Tissue, Other.D. Received in formalin labeled with patient's name, accession number and "soft tissue, other" are 2 jean baptiste-pink to brown tissue fragments measuring 0.3 x 0.2 x 0.2 and 0.2 x 0.2 x 0.1 cm. Specimen is submitted in toto in cassette D1.E. Uterus w/Cervix.E. Received in formalin labeled with patient's name, accession number and "uteruswith cervix" is a hysterectomy and colectomy specimen measuring 17 x 12.5 x 6 cm altogether. Each organ will be described individually below.The attached bowel (sigmoid and rectum) measures 26 cm in length and 5 cm in diameter with attached mesentery. The mesentery displays multiple scattered jean baptiste-white nodules. These nodules are also present on the serosa of the bowel. The serosa is jean baptiste-pink and predo minantly smooth with no puckering or perforations. The distal portion of the bowel is attached to the posterior surface of the uterus with some visualized adhesions. The bowel is opened to display abundant green fecal material. Upon removal of the feces, the mucosa displays jean baptiste-pink colonic folds predominantly in the rectum, with flattening in the sigmoid colon. No lesions are identified in the colonic mucosa. Due to the extensive adherence of the uterus to the rectum the peritoneal reflection is unable to be assessed.The uterus measures 7.2 cm (S-I), 6.2 cm (R to L), 5.2 cm (A2 P) with an attachedcervix measuring 2.3 x 2.5 cm with a 1 cm slitlike cervical os, and attached bilateral adnexa. The colon is directly attached to the uterus on the posterior surface. The anterior uterus has an attachedbladder peritoneal tissue that is jean baptiste-brown, course with multiple jean baptiste-white nodules. This peritoneumis reflected upwards to display a jean baptiste-pink serosa of the anterior uterus. The uterus is bivalved into anterior and posterior halves to display a 5.5 x 2.3 cm jean baptiste pink semi distorted uterine cavity. A large jean baptiste whorled intramural mass 3 x 2.5 x 2 cm is identified in the right uterus distorting the posterior uterus. The uterine cavity is jean baptiste- white with multiple jean baptiste nodules throughout the cavity. There is a 1.2 x 1 cm jean baptiste white fibrous possible pedunculated polyp attached to the superior portion of theendometrium. The endometrium is barely visualized. The anterior uterus is sectioned to display a 1.8cm myometrium.The left attached adnexa consists of a 4 x 0.5 cm fimbriated fallopian tube and a 3.8 x 2.6 x 1 cm ovary. The fallopian tube serosa is jean baptiste-pink with multiple jean baptiste-white nodules. It is serially sectioned to display a pinpoint lumen. The left ovary is ovoid shaped and with a jean baptiste white appearance. It is bisected to display a jean baptiste to yellow cut surface with multiple irregularly shaped white lesions. No definitive corpus luteum is identified.The right adnexa is not well-defined. It is found embedded in adhesions and peritoneum and consists of an attached 2.5 x 0.5cm fallopian tube and an ovary measuring 1.8 x 1 cm beneath the peritoneal ligaments. Serial sections are performed to show the ovarian parenchyma and its relation to the adhesions, fallopian tube lumen and bowel. The cut surfaceof the ovary is jean baptiste- pink with a glistening cut surface and no identifiable corpus luteum. The fallopian tube appears convoluted in the adhesions and the fimbria is not grossly identifiable. The serosa is jean baptiste-pink with jean baptiste-white nodules and the lumen is pinpoint. Exterminator sections are submitted. Photographs are taken of the specimen. Ink code: Vida-distal colonic marginBlue-proximal colonic mar ginGreen-anterior uterusBlack-posterior cervixSection code:E1-proximal colonic marginE2-distal colonic marginE3-electronics parts sales representative section of sigmoid colonE4-E9 full-thickness section of anterior nswzzgF57-I15 full-thickness section of posterior uterus with adherent wtkonU78-R74-xtxlrhmdkf full-thickness section of posterior uterus with adherent hfnubO45-xxetfaqjhghj polyp in posterior zupnknM70-kwseosjukkcjbm section of anterior glaouaF05 electronics parts sales representative section of posterior kyuuusI27-endvemxamaolid sections of left fallopian tube and fimbria layjiveqC13-W88-xoqu ovary wuaoflynV49-35-bmavj jean baptiste whorled doouA56-yqqwd fallopian tube and possible lewnivcQ82-O96 right ovary serially sectioned (E29- E30 and E31-32 are contiguous sections)N08-X01-krybaocp adhesions near right ssgvnT17-T60-ajt-inboh nodules on dujqgtpdobC03-veptcd in peritoneum E40-E41 bladder reflection with jean baptiste-white nodulesJAF. Uterus w/Cervix.F. Received in formalin labeled with patient's name, accession number and "falciform ligament" is a 8 x 4 x 0.6 cm jean baptiste-pink, flattened piece of soft tissue with an attached opaque fibrous piece oftissue measuring 4.7 x 1.6. The external surface is smooth with no grossly identifiable nodules. Theexternal surface is inked and specimen is serially sectioned to display a yellow fatty cut surface and a jean baptiste- white fibrous nodule measuring 5.3 x 0.4 x 0.3 cm. Exterminator sections are submitted. Ink code:Blue-external surfaceSection code:F1-F4: electronics parts sales representative sections of tissue to include the jean baptiste-white noduleF5: Additional electronics parts sales representative section and opaque fibrous tissueG. Soft Tissue, Other.G. Received in formalin labeled with patient's name, accession number and "soft tissue, other" are 2 jean baptiste-pink unoriented short segments of colonic tissue measuring 2.5 x 1.5 x 1 and 1.5 x 1.5 x 1 cm. The mucosa is jean baptiste-pink with no lesions. No masses are identified. Specimen is submitted in toto in cassetteG1-G2.JAA. Soft Tissue, Other.FSA1. DIAPHRAGM, RIGHT, PERITONEAL NODULE, EXCISION: -SUSPICIOUS BUT NOT DIAGNOSTIC OF CARCINOMA. MORE TISSUE REQUESTEDResults reported to Dr. Owens at 9:10 AMPerformed.A. WT-1 and p53 immunostains highlight focus of metastatic carcinoma. E. The tumor cells are positive of PAX-8 and WT-1, and show aberrant p53 overexpression. Block B8 as adequate tumor cellularity forancillary studies.The interpretation of this case included the use of immunohistochemistry or special stains.Control Slides Examined: In-house known positive controls were evaluated along with the testtissue. These control slides run alongside of the patients sample show appropriate staining. Internal positive and negative controls when available are evaluated Immunohistochemistry technical testing was performed at [facility], Pathology Laboratory where it was developed and its performance characteristics were determined. It has not been cleared or approved by the U.S. Food and Drug Administration. The FDA has determined that such clearance or approval is not necessary. The test is used for clinical purposes. It should not be regarded as investigational or for research. This laboratory is certified under the Clinical Laboratory Improvement Amendments of 1988 (CLIA-88) as qualified to perform high complexity clinical laboratory testing.POCT-GLUCOSE [id number] 11:58:13 Test Item Value Reference Range Interpretation Comments POC-GLUCOSE METER 175 mg/dL 70-110 H : TESTED A T [facility] 6720 ([facility]) (test code = [employer] [facility], 1538) [address]: Trimmer Operator/Techni yordy ID = [id number] for Henrry Mann POCT-GLUCOSE [id number] 07:35:51 Test Item Value Reference Range Interpretation Comments POC-GLUCOSE METER 161 mg/dL 70-110 H : TESTED A T [facility] [address] ([employer]) (test code = [employer] [facility], 1538) [address]: Trimmer Operator/Techni yordy ID = [id number] for Henrry Mann [id number] 06:07:34 Test Item Value Reference Range Interpretation Comments PHOSPHORUS (BEAKER) (test code = 3.7 mg/dL 2.3-4.7 604) Trimmer Operator ID - CAROLYN WCOMPREHENSIVE METABOLIC [id number] 06:07:33 Test Item Value Reference Range Interpretation Comments TOTAL PROTEIN 5.3 gm/dL 6.0-8.3 L (BEAKER) (test code = 770) ALBUMIN (BEAKER) 3.2 g/dL 3.5-5.0 L (test code = 1145) ALKALINE PHOSPHATASE 41 U/L 40-150 (BEAKER) (test code = 346) BILIRUBIN TOTAL 0.7 mg/dL 0.2-1.2 (BEAKER) (test code = 377) SODIUM (BEAKER) (test 131 meq/L 136-145 L code = 381) POTASSIUM (BEAKER) 4.4 meq/L 3.5-5.1 (test code = 379) CHLORIDE (BEAKER) 94 meq/L 98-107 L (test code = 382) CO2 (BEAKER) (test 26 meq/L 22-29 code = 355) BLOOD UREA NITROGEN 24 mg/dL 7-21 H (BEAKER) (test code = 354) CREATININE (BEAKER) 0.82 mg/dL 0.57-1.25 (test code = 358) GLUCOSE RANDOM 162 mg/dL 70-105 H (BEAKER) (test code = 652) CALCIUM (BEAKER) 8.6 mg/dL 8.4-10.2 (test code = 697) AST (SGOT) (BEAKER) 15 U/L 5-34 (test code = 353) ALT (SGPT) (BEAKER) 8 U/L 6-55 (test code = 347) EGFR (BEAKER) (test 68 mL/min/1.73 ESTIMA MAGDA GFR IS code = 1092) sq m NOT ACCURATE CREATININE CLEARANCE IN PREDICTING GLOMERULAR FILTRATION RATE . ESTIMATED GFR I S NOT APPLICABLE FOR DIALYSIS PATIEN TS. Trimmer Operator ID - CAROLYN [id number] 06:07:33 Test Item Value Reference Range Interpretation Comments MAGNESIUM (BEAKER) (test code = 2.0 mg/dL 1.6-2.6 627) Trimmer Operator JESS LEON WCBC W/PLT COUNT & AUTO [id number] 05:19:35 Test Item Value Reference Range Interpretation Comments WHITE BLOOD CELL COUNT (BEAKER) 12.9 K/ L 3.5-10.5 H (test code = 775) RED BLOOD CELL COUNT (BEAKER) 3.34 M/ L 3.93-5.22 L (test code = 761) HEMOGLOBIN (BEAKER) (test code = 10.5 GM/DL 11.2-15.7 L 410) HEMATOCRIT (BEAKER) (test code = 31.5 % 34.1-44.9 L 411) MEAN CORPUSCULAR VOLUME (BEAKER) 94.3 fL 79.4-94.8 (test code = 753) MEAN CORPUSCULAR HEMOGLOBIN 31.4 pg 25.6-32.2 (BEAKER) (test code = 751) MEAN CORPUSCULAR HEMOGLOBIN CONC 33.3 GM/DL 32.2-35.5 (BEAKER) (test code = 752) RED CELL DISTRIBUTION WIDTH 15.3 % 11.7-14.4 H (BEAKER) (test code = 412) PLATELET COUNT (BEAKER) (test 193 K/CU MM 150-450 code = 756) MEAN PLATELET VOLUME (BEAKER) 10.5 fL 9.4-12.3 (test code = 754) NUCLEATED RED BLOOD CELLS 0 /100 WBC 0-0 (BEAKER) (test code = 413) NEUTROPHILS RELATIVE PERCENT 88 % (BEAKER) (test code = 429) LYMPHOCYTES RELATIVE PERCENT 4 % (BEAKER) (test code = 430) MONOCYTES RELATIVE PERCENT 7 % (BEAKER) (test code = 431) EOSINOPHILS RELATIVE PERCENT 0 % (BEAKER) (test code = 432) BASOPHILS RELATIVE PERCENT 0 % (BEAKER) (test code = 437) NEUTROPHILS ABSOLUTE COUNT 11.39 K/ L 1.56-6.13 H (BEAKER) (test code = 670) LYMPHOCYTES ABSOLUTE COUNT 0.57 K/ L 1.18-3.74 L (BEAKER) (test code = 414) MONOCYTES ABSOLUTE COUNT (BEAKER) 0.85 K/ L 0.24-0.36 H (test code = 415) EOSINOPHILS ABSOLUTE COUNT 0.02 K/ L 0.04-0.36 L (BEAKER) (test code = 416) BASOPHILS ABSOLUTE COUNT (BEAKER) 0.02 K/ L 0.01-0.08 (test code = 417) IMMATURE GRANULOCYTES-RELATIVE 1 % 0-1 PERCENT (BEAKER) (test code = 2801) POCT-GLUCOSE [id number] 21:55:31 Test Item Value Reference Range Interpretation Comments POC-GLUCOSE METER 128 mg/dL 70-110 H : Notified RN/MD: TESTED ([facility]) (test code AT [facility] [address] [facility] = 1538) [facility], [facility] 30: Trimmer Operator/Techni yordy ID = [id number] for JC MCCONNELL POCT-GLUCOSE [id number] 16:53:34 Test Item Value Reference Range Interpretation Comments POC-GLUCOSE METER 133 mg/dL 70-110 H : [facility] (test code = [facility], 1538) [address]: Trimmer Operator/Techni yordy ID = [id number] for TI OTISWES Veras POCT-GLUCOSE [id number] 11:41:50 Test Item Value Reference Range Interpretation Comments POC-GLUCOSE METER 157 mg/dL 70-110 H : TESTED A T [facility] [address] ([facility]) (test code = [facility], 1538) [address]: Trimmer Operator/Techni yordy ID = [id number] for EP MADISON AXEL POCT-GLUCOSE [id number] 07:59:21 Test Item Value Reference Range Interpretation Comments POC-GLUCOSE METER 161 mg/dL 70-110 H : [facility] (test code = [facility], 1538) [address]: Trimmer Operator/Techni yordy ID = [id number] for TI OTIS, WES CBC W/PLT COUNT & AUTO [id number] 06:58:32 Test Item Value Reference Range Interpretation Comments WHITE BLOOD CELL COUNT 8.9 K/ L 3.5-10.5 (BEAKER) (test code = 775) RED BLOOD CELL COUNT 3.07 M/ L 3.93-5.22 L (BEAKER) (test code = 761) HEMOGLOBIN (BEAKER) 9.8 GM/DL 11.2-15.7 L (test code = 410) HEMATOCRIT (BEAKER) 28.8 % 34.1-44.9 L (test code = 411) MEAN CORPUSCULAR 93.8 fL 79.4-94.8 Discordant results VOLUME (BEAKER) (test compar ed to code = 753) previous, clini dhiraj correlation required. MEAN CORPUSCULAR 31.9 pg 25.6-32.2 HEMOGLOBIN (BEAKER) (test code = 751) MEAN CORPUSCULAR 34.0 GM/DL 32.2-35.5 HEMOGLOBIN CONC (BEAKER) (test code = 752) RED CELL DISTRIBUTION 15.7 % 11.7-14.4 H WIDTH (BEAKER) (test code = 412) PLATELET COUNT 191 K/CU MM 150-450 (BEAKER) (test code = 756) MEAN PLATELET VOLUME 10.0 fL 9.4-12.3 (BEAKER) (test code = 754) NUCLEATED RED BLOOD 0 /100 WBC 0-0 CELLS (BEAKER) (test code = 413) NEUTROPHILS RELATIVE 81 % PERCENT (BEAKER) (test code = 429) LYMPHOCYTES RELATIVE 9 % PERCENT (BEAKER) (test code = 430) MONOCYTES RELATIVE 10 % PERCENT (BEAKER) (test code = 431) EOSINOPHILS RELATIVE 0 % PERCENT (BEAKER) (test code = 432) BASOPHILS RELATIVE 0 % PERCENT (BEAKER) (test code = 437) NEUTROPHILS ABSOLUTE 7.22 K/ L 1.56-6.13 H COUNT (BEAKER) (test code = 670) LYMPHOCYTES ABSOLUTE 0.76 K/ L 1.18-3.74 L COUNT (BEAKER) (test code = 414) MONOCYTES ABSOLUTE 0.89 K/ L 0.24-0.36 H COUNT (BEAKER) (test code = 415) EOSINOPHILS ABSOLUTE 0.02 K/ L 0.04-0.36 L COUNT (BEAKER) (test code = 416) BASOPHILS ABSOLUTE 0.00 K/ L 0.01-0.08 L COUNT (BEAKER) (test code = 417) IMMATURE 0 % 0-1 GRANULOCYTES-RELATIVE PERCENT (BEAKER) (test code = 2801) COMPREHENSIVE METABOLIC [id number] 04:40:48 Test Item Value Reference Range Interpretation Comments TOTAL PROTEIN 5.3 gm/dL 6.0-8.3 L (BEAKER) (test code = 770) ALBUMIN (BEAKER) 3.5 g/dL 3.5-5.0 (test code = 1145) ALKALINE PHOSPHATASE 38 U/L 40-150 L (BEAKER) (test code = 346) BILIRUBIN TOTAL 0.7 mg/dL 0.2-1.2 (BEAKER) (test code = 377) SODIUM (BEAKER) (test 134 meq/L 136-145 L code = 381) POTASSIUM (BEAKER) 3.5 meq/L 3.5-5.1 (test code = 379) CHLORIDE (BEAKER) 94 meq/L 98-107 L (test code = 382) CO2 (BEAKER) (test 28 meq/L 22-29 code = 355) BLOOD UREA NITROGEN 18 mg/dL 7-21 (BEAKER) (test code = 354) CREATININE (BEAKER) 0.74 mg/dL 0.57-1.25 (test code = 358) GLUCOSE RANDOM 139 mg/dL 70-105 H (BEAKER) (test code = 652) CALCIUM (BEAKER) 9.2 mg/dL 8.4-10.2 (test code = 697) AST (SGOT) (BEAKER) 14 U/L 5-34 (test code = 353) ALT (SGPT) (BEAKER) 9 U/L 6-55 (test code = 347) EGFR (BEAKER) (test 77 mL/min/1.73 ESTIMA MAGDA GFR IS code = 1092) sq m NOT ACCURATE CREATININE CLEARANCE IN PREDICTING GLOMERULAR FILTRATION RATE . ESTIMATED GFR I S NOT APPLICABLE FOR DIALYSIS PATIEN TS. Trimmer Operator ID - [id number] 04:40:48 Test Item Value Reference Range Interpretation Comments MAGNESIUM (BEAKER) (test code = 1.8 mg/dL 1.6-2.6 627) Trimmer Operator ID - [id number] 04:40:48 Test Item Value Reference Range Interpretation Comments PHOSPHORUS (BEAKER) (test code = 3.9 mg/dL 2.3-4.7 604) Trimmer Operator ID - ADMINPOCT-GLUCOSE [id number] 04:30:01 Test Item Value Reference Range Interpretation Comments POC-GLUCOSE METER 159 mg/dL 70-110 H : [facility]ER[facility] (test code = [place] ID, 1538) [address]: Trimmer Operator/Techni yordy ID = [id number] for Lan Taylor POCT-GLUCOSE [id number] 20:46:14 Test Item Value Reference Range Interpretation Comments POC-GLUCOSE METER 128 mg/dL 70-110 H : Notified RN/MD: ([facility]) (test code = TESTED AT [facility] [address] 1538) [facility], [address]: Trimmer Operator/Techni yordy ID = [id number] for Yanely Joe POCT-GLUCOSE [id number] 16:54:47 Test Item Value Reference Range Interpretation Comments POC-GLUCOSE METER 125 mg/dL 70-110 H : [facility] (test code = [facility], 153) [address]: Trimmer Operator/Techni yordy ID = [id number] for ROGER WILSON POCT-GLUCOSE [id number] 12:08:01 Test Item Value Reference Range Interpretation Comments POC-GLUCOSE METER 148 mg/dL 70-110 H : [facility] (test code = [facility], 153) [address]: Trimmer Operator/Techni yordy ID = [id number] for LUCAS CONTRERAS, ROGER POCT-GLUCOSE [id number] 08:11:02 Test Item Value Reference Range Interpretation Comments POC-GLUCOSE METER 120 mg/dL 70-110 H : [facility] (test code = [facility], 153) [address]: Trimmer Operator/Techni yordy ID = [id number] for LUCAS CONTRERAS, ROGER COMPREHENSIVE METABOLIC [id number] 06:13:51 Test Item Value Reference Range Interpretation Comments TOTAL PROTEIN 5.2 gm/dL 6.0-8.3 L (BEAKER) (test code = 770) ALBUMIN (BEAKER) 3.4 g/dL 3.5-5.0 L (test code = 1145) ALKALINE PHOSPHATASE 35 U/L 40-150 L (BEAKER) (test code = 346) BILIRUBIN TOTAL 0.8 mg/dL 0.2-1.2 (BEAKER) (test code = 377) SODIUM (BEAKER) (test 133 meq/L 136-145 L code = 381) POTASSIUM (BEAKER) 3.4 meq/L 3.5-5.1 L (test code = 379) CHLORIDE (BEAKER) 96 meq/L 98-107 L (test code = 382) CO2 (BEAKER) (test 29 meq/L 22-29 code = 355) BLOOD UREA NITROGEN 19 mg/dL 7-21 (BEAKER) (test code = 354) CREATININE (BEAKER) 0.71 mg/dL 0.57-1.25 (test code = 358) GLUCOSE RANDOM 124 mg/dL 70-105 H (BEAKER) (test code = 652) CALCIUM (BEAKER) 8.9 mg/dL 8.4-10.2 (test code = 697) AST (SGOT) (BEAKER) 17 U/L 5-34 (test code = 353) ALT (SGPT) (BEAKER) 9 U/L 6-55 (test code = 347) EGFR (BEAKER) (test 81 mL/min/1.73 ESTIMA MAGDA GFR IS code = 1092) sq m NOT ACCURATE CREATININE CLEARANCE IN PREDICTING GLOMERULAR FILTRATION RATE . ESTIMATED GFR I S NOT APPLICABLE FOR DIALYSIS PATIEN TS. Trimmer Operator ID - [id number] 06:13:51 Test Item Value Reference Range Interpretation Comments MAGNESIUM (BEAKER) (test code = 1.8 mg/dL 1.6-2.6 627) Trimmer Operator ID - [id number] 06:13:51 Test Item Value Reference Range Interpretation Comments PHOSPHORUS (BEAKER) (test code = 2.6 mg/dL 2.3-4.7 604) Trimmer Operator ID - ADMINCBC W/PLT COUNT & AUTO [id number] 06:01:30 Test Item Value Reference Range Interpretation Comments WHITE BLOOD CELL COUNT (BEAKER) 8.5 K/ L 3.5-10.5 (test code = 775) RED BLOOD CELL COUNT (BEAKER) 2.78 M/ L 3.93-5.22 L (test code = 761) HEMOGLOBIN (BEAKER) (test code = 8.8 GM/DL 11.2-15.7 L 410) HEMATOCRIT (BEAKER) (test code = 27.3 % 34.1-44.9 L 411) MEAN CORPUSCULAR VOLUME (BEAKER) 98.2 fL 79.4-94.8 H (test code = 753) MEAN CORPUSCULAR HEMOGLOBIN 31.7 pg 25.6-32.2 (BEAKER) (test code = 751) MEAN CORPUSCULAR HEMOGLOBIN CONC 32.2 GM/DL 32.2-35.5 (BEAKER) (test code = 752) RED CELL DISTRIBUTION WIDTH 16.3 % 11.7-14.4 H (BEAKER) (test code = 412) PLATELET COUNT (BEAKER) (test 174 K/CU MM 150-450 code = 756) MEAN PLATELET VOLUME (BEAKER) 10.1 fL 9.4-12.3 (test code = 754) NUCLEATED RED BLOOD CELLS 0 /100 WBC 0-0 (BEAKER) (test code = 413) NEUTROPHILS RELATIVE PERCENT 80 % (BEAKER) (test code = 429) LYMPHOCYTES RELATIVE PERCENT 11 % (BEAKER) (test code = 430) MONOCYTES RELATIVE PERCENT 10 % (BEAKER) (test code = 431) EOSINOPHILS RELATIVE PERCENT 0 % (BEAKER) (test code = 432) BASOPHILS RELATIVE PERCENT 0 % (BEAKER) (test code = 437) NEUTROPHILS ABSOLUTE COUNT 6.78 K/ L 1.56-6.13 H (BEAKER) (test code = 670) LYMPHOCYTES ABSOLUTE COUNT 0.90 K/ L 1.18-3.74 L (BEAKER) (test code = 414) MONOCYTES ABSOLUTE COUNT (BEAKER) 0.81 K/ L 0.24-0.36 H (test code = 415) EOSINOPHILS ABSOLUTE COUNT 0.00 K/ L 0.04-0.36 L (BEAKER) (test code = 416) BASOPHILS ABSOLUTE COUNT (BEAKER) 0.00 K/ L 0.01-0.08 L (test code = 417) IMMATURE GRANULOCYTES-RELATIVE 0 % 0-1 PERCENT (BEAKER) (test code = 2801) POCT-GLUCOSE [id number] 21:30:20 Test Item Value Reference Range Interpretation Comments POC-GLUCOSE METER 113 mg/dL 70-110 H : TESTED A T [facility] 6720 (BEAKER) (test code = DELMIS [place] ID, 1538) 72572: Trimmer Operator/Techni yordy ID = [id number] for Deshaun Malik POCT-GLUCOSE [id number] 16:41:05 Test Item Value Reference Range Interpretation Comments POC-GLUCOSE METER 96 mg/dL 70-110 : TESTED A T [facility] 6720 (BEAKER) (test code = DELMIS BLACK, 1538) 08053: Trimmer Operator/Techni yordy ID = [id number] for LUISA JONES POCT-GLUCOSE [id number] 12:34:48 Test Item Value Reference Range Interpretation Comments POC-GLUCOSE METER 174 mg/dL 70-110 H : TESTED A T [facility] 6720 (BEAKER) (test code = [facility] [place] [facility], 1538) 91302: Trimmer Operator/Techni yordy ID = [id number] for HARRIS ESCOTO POCT-GLUCOSE [id number] 09:52:49 Test Item Value Reference Range Interpretation Comments POC-GLUCOSE METER 176 mg/dL 70-110 H : TESTED A T [facility] 6720 (BEAKER) (test code = [facility] [place] [facility], 1538) 45682: Trimmer Operator/Techni yordy ID = [id number] for CHILANGO ESCOTOINA RAD, CHEST, 1 VIEW, NON [id number] 06:53:00Reason for exam:- >intubatedShould this be performed at the bedside?->Yes [facility] 1950 Sex: FFINAL REPORT RAD, CHEST, 1 VIEW, NON DEPT INDICATION: intubated COMPARISON: Prior day's exam FINDINGS: Portable frontal view of the chest. IMPRESSION: Support Lines: Port-A-Cath tip overlies the atriocaval junction Lungs and pleura: Small right effusion and adjacent atelectasis. No significant pneumothorax. Heart and mediastinum: Stable contours. Additional findings: None. Signed: Nadya Trevizo Verified Date/Time: 03/10/2022 06:53:16 [id number] 05:30:13 Test Item Value Reference Range Interpretation Comments PHOSPHORUS (BEAKER) (test code = 3.5 mg/dL 2.3-4.7 604) Trimmer Operator ID - BSCOMPREHENSIVE METABOLIC [id number] 05:30:12 Test Item Value Reference Range Interpretation Comments TOTAL PROTEIN 5.5 gm/dL 6.0-8.3 L (BEAKER) (test code = 770) ALBUMIN (BEAKER) 3.6 g/dL 3.5-5.0 (test code = 1145) ALKALINE PHOSPHATASE 35 U/L 40-150 L (BEAKER) (test code = 346) BILIRUBIN TOTAL 0.6 mg/dL 0.2-1.2 (BEAKER) (test code = 377) SODIUM (BEAKER) (test 133 meq/L 136-145 L code = 381) POTASSIUM (BEAKER) 4.3 meq/L 3.5-5.1 (test code = 379) CHLORIDE (BEAKER) 100 meq/L 98-107 (test code = 382) CO2 (BEAKER) (test 25 meq/L 22-29 code = 355) BLOOD UREA NITROGEN 15 mg/dL 7-21 (BEAKER) (test code = 354) CREATININE (BEAKER) 0.67 mg/dL 0.57-1.25 (test code = 358) GLUCOSE RANDOM 179 mg/dL 70-105 H (BEAKER) (test code = 652) CALCIUM (BEAKER) 8.9 mg/dL 8.4-10.2 (test code = 697) AST (SGOT) (BEAKER) 17 U/L 5-34 (test code = 353) ALT (SGPT) (BEAKER) 8 U/L 6-55 (test code = 347) EGFR (BEAKER) (test 86 mL/min/1.73 ESTIMA MAGDA GFR IS code = 1092) sq m NOT ACCURATE CREATININE CLEARANCE IN PREDICTING GLOMERULAR FILTRATION RATE . ESTIMATED GFR I S NOT APPLICABLE FOR DIALYSIS PATIEN TS. Trimmer Operator ID - [id number] 05:30:12 Test Item Value Reference Range Interpretation Comments MAGNESIUM (BEAKER) (test code = 2.1 mg/dL 1.6-2.6 627) Trimmer Operator ID - BSCBC W/PLT COUNT & AUTO [id number] 05:20:55 Test Item Value Reference Range Interpretation Comments WHITE BLOOD CELL COUNT (BEAKER) 11.6 K/ L 3.5-10.5 H (test code = 775) RED BLOOD CELL COUNT (BEAKER) 2.83 M/ L 3.93-5.22 L (test code = 761) HEMOGLOBIN (BEAKER) (test code = 9.0 GM/DL 11.2-15.7 L 410) HEMATOCRIT (BEAKER) (test code = 27.8 % 34.1-44.9 L 411) MEAN CORPUSCULAR VOLUME (BEAKER) 98.2 fL 79.4-94.8 H (test code = 753) MEAN CORPUSCULAR HEMOGLOBIN 31.8 pg 25.6-32.2 (BEAKER) (test code = 751) MEAN CORPUSCULAR HEMOGLOBIN CONC 32.4 GM/DL 32.2-35.5 (BEAKER) (test code = 752) RED CELL DISTRIBUTION WIDTH 17.5 % 11.7-14.4 H (BEAKER) (test code = 412) PLATELET COUNT (BEAKER) (test 166 K/CU MM 150-450 code = 756) MEAN PLATELET VOLUME (BEAKER) 9.9 fL 9.4-12.3 (test code = 754) NUCLEATED RED BLOOD CELLS 0 /100 WBC 0-0 (BEAKER) (test code = 413) NEUTROPHILS RELATIVE PERCENT 91 % (BEAKER) (test code = 429) LYMPHOCYTES RELATIVE PERCENT 4 % (BEAKER) (test code = 430) MONOCYTES RELATIVE PERCENT 5 % (BEAKER) (test code = 431) EOSINOPHILS RELATIVE PERCENT 0 % (BEAKER) (test code = 432) BASOPHILS RELATIVE PERCENT 0 % (BEAKER) (test code = 437) NEUTROPHILS ABSOLUTE COUNT 10.58 K/ L 1.56-6.13 H (BEAKER) (test code = 670) LYMPHOCYTES ABSOLUTE COUNT 0.40 K/ L 1.18-3.74 L (BEAKER) (test code = 414) MONOCYTES ABSOLUTE COUNT (BEAKER) 0.54 K/ L 0.24-0.36 H (test code = 415) EOSINOPHILS ABSOLUTE COUNT 0.00 K/ L 0.04-0.36 L (BEAKER) (test code = 416) BASOPHILS ABSOLUTE COUNT (BEAKER) 0.00 K/ L 0.01-0.08 L (test code = 417) IMMATURE GRANULOCYTES-RELATIVE 1 % 0-1 PERCENT (BEAKER) (test code = 2801) [id number] 05:17:54 Test Item Value Reference Range Interpretation Comments PROTIME (BEAKER) (test 13.3 seconds 11.9-14.2 code = 759) INR (BEAKER) (test 1.03 See_Comment [Automat ed code = 370) message] The sy stem which generated this result transmitted reference range : <=5.90. The reference range was not used to interpret this result as normal/abnormal . PARTIAL THROMBOPLASTIN 23.4 seconds 22.5-36.0 TIME (BEAKER) (test code = 760) RECOMMENDED COUMADIN/WARFARIN INR THERAPY RANGESSTANDARD DOSE: 2.0 - 3.0 Includes: PROPHYLAXIS for venous thrombosis, systemic embolization; TREATMENT for venous thrombosis and/or pulmonary embolus.HIGH RISK: Target INR is 2.5-3.5 for patients with mechanical heart valves.POCT-GLUCOSE [id number] 18:05:32 Test Item Value Reference Range Interpretation Comments POC-GLUCOSE METER 171 mg/dL 70-110 H : TESTED A T [facility] 6720 (BEAKER) (test code = DELMIS [place] [facility], 1538) 00649: Trimmer Operator/Techni yordy ID = [id number] for CHACHA MALAGON POCT-GLUCOSE [id number] 12:05:02 Test Item Value Reference Range Interpretation Comments POC-GLUCOSE METER 153 mg/dL 70-110 H : TESTED A T [facility] 6720 (BEAKER) (test code = [facility] [place] [facility], 1538) 16609: Trimmer Operator/Techni yordy ID = [id number] for OR RODOLFO FAIR RAD, CHEST, 1 VIEW, NON [id number] 04:47:00Reason for exam:- >intubatedShould this be performed at the bedside?->Yes [facility] : 1950 Sex: FFINAL REPORT RAD, CHEST, 1 VIEW, NON DEPT INDICATION: intubated COMPARISON: Prior day's exam FINDINGS: Portable frontal view of the chest. IMPRESSION: Support Lines: Interval extubation and removal the previously seen enteric tube. Otherwise unchanged support apparatus. Lungs and pleura: Increased layering small right pleural effusion with adjacent consolidation. Unchanged left basilar atelectasis. No pneumothorax.Heart and mediastinum: Stable contours. Additional findings: None. Signed: Shayna Meyer Verified Date/Time: 03/09/2022 04:47:26 PT/[id number] 03:56:35 Test Item Value Reference Range Interpretation Comments PROTIME (BEAKER) (test 15.7 seconds 11.9-14.2 H code = 759) INR (BEAKER) (test 1.27 See_Comment [Automat ed code = 370) message] The sy stem which generated this result transmitted reference range : <=5.90. The reference range was not used to interpret this result as normal/abnormal . PARTIAL THROMBOPLASTIN 30.1 seconds 22.5-36.0 TIME (BEAKER) (test code = 760) RECOMMENDED COUMADIN/WARFARIN INR THERAPY RANGESSTANDARD DOSE: 2.0 - 3.0 Includes: PROPHYLAXIS for venous thrombosis, systemic embolization; TREATMENT for venous thrombosis and/or pulmonary embolus.HIGH RISK: Target INR is 2.5-3.5 for patients with mechanical heart valves.CBC W/PLT COUNT & AUTO [id number] 03:50:58 Test Item Value Reference Range Interpretation Comments WHITE BLOOD CELL COUNT (BEAKER) 12.6 K/ L 3.5-10.5 H (test code = 775) RED BLOOD CELL COUNT (BEAKER) 2.86 M/ L 3.93-5.22 L (test code = 761) HEMOGLOBIN (BEAKER) (test code = 9.0 GM/DL 11.2-15.7 L 410) HEMATOCRIT (BEAKER) (test code = 27.7 % 34.1-44.9 L 411) MEAN CORPUSCULAR VOLUME (BEAKER) 96.9 fL 79.4-94.8 H (test code = 753) MEAN CORPUSCULAR HEMOGLOBIN 31.5 pg 25.6-32.2 (BEAKER) (test code = 751) MEAN CORPUSCULAR HEMOGLOBIN CONC 32.5 GM/DL 32.2-35.5 (BEAKER) (test code = 752) RED CELL DISTRIBUTION WIDTH 19.0 % 11.7-14.4 H (BEAKER) (test code = 412) PLATELET COUNT (BEAKER) (test 168 K/CU MM 150-450 code = 756) MEAN PLATELET VOLUME (BEAKER) 10.2 fL 9.4-12.3 (test code = 754) NUCLEATED RED BLOOD CELLS 0 /100 WBC 0-0 (BEAKER) (test code = 413) NEUTROPHILS RELATIVE PERCENT 88 % (BEAKER) (test code = 429) LYMPHOCYTES RELATIVE PERCENT 4 % (BEAKER) (test code = 430) MONOCYTES RELATIVE PERCENT 8 % (BEAKER) (test code = 431) EOSINOPHILS RELATIVE PERCENT 0 % (BEAKER) (test code = 432) BASOPHILS RELATIVE PERCENT 0 % (BEAKER) (test code = 437) NEUTROPHILS ABSOLUTE COUNT 11.14 K/ L 1.56-6.13 H (BEAKER) (test code = 670) LYMPHOCYTES ABSOLUTE COUNT 0.46 K/ L 1.18-3.74 L (BEAKER) (test code = 414) MONOCYTES ABSOLUTE COUNT (BEAKER) 0.94 K/ L 0.24-0.36 H (test code = 415) EOSINOPHILS ABSOLUTE COUNT 0.00 K/ L 0.04-0.36 L (BEAKER) (test code = 416) BASOPHILS ABSOLUTE COUNT (BEAKER) 0.01 K/ L 0.01-0.08 (test code = 417) IMMATURE GRANULOCYTES-RELATIVE 1 % 0-1 PERCENT (BEAKER) (test code = 2801) [id number] 03:46:32 Test Item Value Reference Range Interpretation Comments PHOSPHORUS (BEAKER) (test code = 3.7 mg/dL 2.3-4.7 604) Trimmer Operator ID - BSCOMPREHENSIVE METABOLIC [id number] 03:46:31 Test Item Value Reference Range Interpretation Comments TOTAL PROTEIN 5.5 gm/dL 6.0-8.3 L (BEAKER) (test code = 770) ALBUMIN (BEAKER) 3.9 g/dL 3.5-5.0 (test code = 1145) ALKALINE PHOSPHATASE 33 U/L 40-150 L (BEAKER) (test code = 346) BILIRUBIN TOTAL 0.6 mg/dL 0.2-1.2 (BEAKER) (test code = 377) SODIUM (BEAKER) (test 135 meq/L 136-145 L code = 381) POTASSIUM (BEAKER) 4.0 meq/L 3.5-5.1 (test code = 379) CHLORIDE (BEAKER) 103 meq/L 98-107 (test code = 382) CO2 (BEAKER) (test 23 meq/L 22-29 code = 355) BLOOD UREA NITROGEN 13 mg/dL 7-21 (BEAKER) (test code = 354) CREATININE (BEAKER) 0.64 mg/dL 0.57-1.25 (test code = 358) GLUCOSE RANDOM 183 mg/dL 70-105 H (BEAKER) (test code = 652) CALCIUM (BEAKER) 8.5 mg/dL 8.4-10.2 (test code = 697) AST (SGOT) (BEAKER) 22 U/L 5-34 (test code = 353) ALT (SGPT) (BEAKER) 10 U/L 6-55 (test code = 347) EGFR (BEAKER) (test 91 mL/min/1.73 ESTIMA MAGDA GFR IS code = 1092) sq m NOT ACCURATE CREATININE CLEARANCE IN PREDICTING GLOMERULAR FILTRATION RATE . ESTIMATED GFR I S NOT APPLICABLE FOR DIALYSIS PATIEN TS. Trimmer Operator ID - [id number] 03:46:31 Test Item Value Reference Range Interpretation Comments MAGNESIUM (BEAKER) (test code = 2.9 mg/dL 1.6-2.6 H 627) Trimmer Operator ID - BSPrepare [id number] 23:54:00 Test Item Value Reference Range Interpretation Comments CROSSMATCH (test code = COMPATIBLE 2264) Unit ABO (test code = A Neg 1026918) UNIT NUMBER (test code = [id number] 934-0) Status (test code = RETURNED FROM ISSUE 15110203) Blood Bank Product (test RED BLOOD CELLS code = 2263) PRODUCT CODE (test code = [id number] 933-2) [facility] [id number] 23:54:00 Test Item Value Reference Range Interpretation Comments CROSSMATCH (test code = 2264) COMPATIBLE Unit ABO (test code = A Neg 6987993) UNIT NUMBER (test code = [id number] 934-0) Status (test code = 9575012) TX_TIMEINCHART Blood Bank Product (test code RED BLOOD CELLS = 2263) PRODUCT CODE (test code = V9162C11 933-2) [facility] [id number] 23:54:00 Test Item Value Reference Range Interpretation Comments CROSSMATCH (test code = COMPATIBLE 4) Unit ABO (test code = A Neg 0424321) UNIT NUMBER (test code = [id number] 934-0) Status (test code = RETURNED FROM ISSUE 15110203) Blood Bank Product (test RED BLOOD CELLS code = 2263) PRODUCT CODE (test code = [id number] 933-2) [facility] Leuko-Red [id number] 23:54:00 Test Item Value Reference Range Interpretation Comments CROSSMATCH (test code = 2264) COMPATIBLE Unit ABO (test code = A Neg 1725921) UNIT NUMBER (test code = [id number] 934-0) Status (test code = 2421691) TX_TIMEINCHART Blood Bank Product (test code RED BLOOD CELLS = 2263) PRODUCT CODE (test code = H2007R92 933-2) [facility] [id number] 23:54:00 Test Item Value Reference Range Interpretation Comments CROSSMATCH (test code = COMPATIBLE 2264) Unit ABO (test code = A Neg 1804520) UNIT NUMBER (test code = [id number] 934-0) Status (test code = RETURNED FROM ISSUE 4704467) Blood Bank Product (test RED BLOOD CELLS code = 2263) PRODUCT CODE (test code = I3755D58 933-2) [facility] Leuko-Red [id number] 23:54:00 Test Item Value Reference Range Interpretation Comments CROSSMATCH (test code = 2264) COMPATIBLE Unit ABO (test code = A Neg 3506758) UNIT NUMBER (test code = [id number] 934-0) Status (test code = 2649534) [facility] (test code RED BLOOD CELLS = 2263) PRODUCT CODE (test code = H5227M90 933-2) [facility] [id number] 23:54:00 Test Item Value Reference Range Interpretation Comments CROSSMATCH (test code = COMPATIBLE 2264) Unit ABO (test code = A Neg 6401312) UNIT NUMBER (test code = [id number] 934-0) Status (test code = RETURNED FROM ISSUE 3493895) Blood Bank Product (test RED BLOOD CELLS code = 2263) PRODUCT CODE (test code = D5764E59 933-2) [facility] Leuko-Red [id number] 23:54:00 Test Item Value Reference Range Interpretation Comments CROSSMATCH (test code = 2264) COMPATIBLE Unit ABO (test code = A Neg 2885011) UNIT NUMBER (test code = [id number] 934-0) Status (test code = 1526977) [place]_TIMEINCABRA[facility]ROW[facility] Blood Bank Product (test code RED BLOOD CELLS = 2263) PRODUCT CODE (test code = F0459W61 933-2) [facility] [id number] 23:54:00 Test Item Value Reference Range Interpretation Comments CROSSMATCH (test code = COMPATIBLE 2264) Unit ABO (test code = A Neg 1293888) UNIT NUMBER (test code = [id number] 934-0) Status (test code = RETURNED FROM ISSUE 7538881) Blood Bank Product (test RED BLOOD CELLS code = 2263) PRODUCT CODE (test code = F5335R75 933-2) [facility] Leuko-Red [id number] 23:54:00 Test Item Value Reference Range Interpretation Comments CROSSMATCH (test code = 2264) COMPATIBLE Unit ABO (test code = A Neg 1790678) UNIT NUMBER (test code = [id number] 934-0) Status (test code = 3438104) TX_TIMEINCHART Blood Bank Product (test code RED BLOOD CELLS = 2263) PRODUCT CODE (test code = J5960V82 933-2) [facility] [id number] 23:54:00 Test Item Value Reference Range Interpretation Comments CROSSMATCH (test code = COMPATIBLE 2264) Unit ABO (test code = A Neg 3857370) UNIT NUMBER (test code = [id number] 934-0) Status (test code = RETURNED FROM ISSUE 2898480) Blood Bank Product (test RED BLOOD CELLS code = 2263) PRODUCT CODE (test code = B5958C81 933-2) [facility] Leuko-Red [id number] 23:54:00 Test Item Value Reference Range Interpretation Comments CROSSMATCH (test code = 2264) COMPATIBLE Unit ABO (test code = A Neg 7771791) UNIT NUMBER (test code = [id number] 934-0) Status (test code = 7824733) TX_TIMEINCHART Blood Bank Product (test code RED BLOOD CELLS = 2263) PRODUCT CODE (test code = W0430E33 933-2) [facility] [id number] 23:54:00 Test Item Value Reference Range Interpretation Comments CROSSMATCH (test code = COMPATIBLE 2264) Unit ABO (test code = A Neg 8852599) UNIT NUMBER (test code = [id number] 934-0) Status (test code = RETURNED FROM ISSUE 0397486) Blood Bank Product (test RED BLOOD CELLS code = 2263) PRODUCT CODE (test code = H2472C20 933-2) [facility] Leuko-Red [id number] 23:54:00 Test Item Value Reference Range Interpretation Comments CROSSMATCH (test code = 2264) COMPATIBLE Unit ABO (test code = A Neg 8758832) UNIT NUMBER (test code = [id number] 934-0) Status (test code = 8164725) TX_TIMEINCHART Blood Bank Product (test code RED BLOOD CELLS = 2263) PRODUCT CODE (test code = B8755Y74 933-2) [facility] [id number] 23:54:00 Test Item Value Reference Range Interpretation Comments CROSSMATCH (test code = COMPATIBLE 2264) Unit ABO (test code = A Neg 2851207) UNIT NUMBER (test code = [id number] 934-0) Status (test code = RETURNED FROM ISSUE 2402180) Blood Bank Product (test RED BLOOD CELLS code = 2263) PRODUCT CODE (test code = A7660E17 933-2) [facility] Leuko-Red [id number] 23:54:00 Test Item Value Reference Range Interpretation Comments CROSSMATCH (test code = 2264) COMPATIBLE Unit ABO (test code = A Neg 8558881) UNIT NUMBER (test code = [id number] 934-0) Status (test code = 0837062) TX_TIMEINCHART Blood Bank Product (test code RED BLOOD CELLS = 2263) PRODUCT CODE (test code = L7601R34 933-2) [facility] [id number] 23:54:00 Test Item Value Reference Range Interpretation Comments CROSSMATCH (test code = COMPATIBLE 2264) Unit ABO (test code = A Neg 3624188) UNIT NUMBER (test code = [id number] 934-0) Status (test code = RETURNED FROM ISSUE 3721874) Blood Bank Product (test RED BLOOD CELLS code = 2263) PRODUCT CODE (test code = V6367S26 933-2) [facility] Leuko-Red [id number] 23:54:00 Test Item Value Reference Range Interpretation Comments CROSSMATCH (test code = 2264) COMPATIBLE Unit ABO (test code = A Neg 6866247) UNIT NUMBER (test code = [id number] 934-0) Status (test code = 9337479) TX_TIMEINCHART Blood Bank Product (test code RED BLOOD CELLS = 2263) PRODUCT CODE (test code = F8625W93 933-2) [facility] [id number] 23:54:00 Test Item Value Reference Range Interpretation Comments CROSSMATCH (test code = COMPATIBLE 2264) Unit ABO (test code = A Neg 9723350) UNIT NUMBER (test code = [id number] 934-0) Status (test code = RETURNED FROM ISSUE 15110203) Blood Bank Product (test RED BLOOD CELLS code = 2263) PRODUCT CODE (test code = W4375V20 933-2) [facility] [id number] 23:54:00 Test Item Value Reference Range Interpretation Comments CROSSMATCH (test code = 2264) COMPATIBLE Unit ABO (test code = A Neg 1789309) UNIT NUMBER (test code = [id number] 934-0) Status (test code = 7301421) TX_TIMEINCHART Blood Bank Product (test code RED BLOOD CELLS = 2263) PRODUCT CODE (test code = K2885G12 933-2) [facility] [id number] 23:54:00 Test Item Value Reference Range Interpretation Comments CROSSMATCH (test code = COMPATIBLE 2264) Unit ABO (test code = A Neg 7473842) UNIT NUMBER (test code = [id number] 934-0) Status (test code = RETURNED FROM ISSUE 4325326) Blood Bank Product (test RED BLOOD CELLS code = 2263) PRODUCT CODE (test code = U2858M29 933-2) [facility] [id number] 23:54:00 Test Item Value Reference Range Interpretation Comments CROSSMATCH (test code = 2264) COMPATIBLE Unit ABO (test code = A Neg 8318689) UNIT NUMBER (test code = [id number] 934-0) Status (test code = 3217969) TX_TIMEINCHART Blood Bank Product (test code RED BLOOD CELLS = 2263) PRODUCT CODE (test code = Y9895S64 933-2) [facility] [id number] 17:57:51 Test Item Value Reference Range Interpretation Comments POC-GLUCOSE METER 152 mg/dL 70-110 H : TESTED A T [facility] 67[facility] (BEAKER) (test code = [place], 1538) [address]: Trimmer Operator/Techni yordy ID = [id number] for CHACHA MALAGON BASIC METABOLIC [id number] 17:33:24 Test Item Value Reference Range Interpretation Comments SODIUM (BEAKER) 139 meq/L 136-145 (test code = 381) POTASSIUM (BEAKER) 4.3 meq/L 3.5-5.1 (test code = 379) CHLORIDE (BEAKER) 108 meq/L 98-107 H (test code = 382) CO2 (BEAKER) (test 22 meq/L 22-29 code = 355) BLOOD UREA NITROGEN 13 mg/dL 7-21 (BEAKER) (test code = 354) CREATININE (BEAKER) 0.64 mg/dL 0.57-1.25 (test code = 358) GLUCOSE RANDOM 174 mg/dL 70-105 H (BEAKER) (test code = 652) CALCIUM (BEAKER) 8.8 mg/dL 8.4-10.2 (test code = 697) EGFR (BEAKER) (test 91 mL/min/1.73 ESTIMA MAGDA GFR IS code = 1092) sq m NOT ACCURATE CREATININE CLEARANCE IN PREDICTING GLOMERULAR FILTRATION RATE . ESTIMATED GFR I S NOT APPLICABLE FOR DIALYSIS PATIEN TS. Trimmer Operator ID - BSBlood gas, [id number] 12:15:01 Test Item Value Reference Range Interpretation Comments pH, Arterial (test code 7.52 7.35-7.45 H = 2744-1) pCO2, Arterial (test 26 See_Comment L [Autom ated code = 2019-8) message] The system which generated this result transmitted reference range : 35 - 45 mm Hg. The reference range was not used to interpret this result as normal/abnormal . pO2, Arterial (test 202 See_Comment H [Automa magda code = 2703-7) message] The system which generated this result transmitted reference range : 80 - 90 mm Hg. The reference range was not used to interpret this result as normal/abnormal . O2 Sat, Arterial (test 99.5 % 96.0-97.0 H code = 2708-6) HCO3, Arterial (test 21 mmol/L 21-29 code = 1960-4) Base Excess, Arterial -1.6 mmol/L -2.0-3.0 (test code = 1925-7) Patient Temperature 37.1 (test code = 8310-5) FIO2 (test code = 1819) 40 Lab Interpretation Abnormal (test code = 81742-9) [id number]:01 Test Item Value Reference Range Interpretation Comments pH, Arterial (test code 7.52 7.35-7.45 H = 2744-1) pCO2, Arterial (test 26 See_Comment L [Autom ated code = 2019-06) message] The system which generated this result transmitted reference range : 35 - 45 mm Hg. The reference range was not used to interpret this result as normal/abnormal . pO2, Arterial (test 202 See_Comment H [Automa magda code = 2703-7) message] The system which generated this result transmitted reference range : 80 - 90 mm Hg. The reference range was not used to interpret this result as normal/abnormal . O2 Sat, Arterial (test 99.5 % 96.0-97.0 H code = 2708-6) HCO3, Arterial (test 21 mmol/L 21-29 code = 1960-4) Base Excess, Arterial -1.6 mmol/L -2.0-3.0 (test code = 1925-7) Patient Temperature 37.1 (test code = 8310-5) FIO2 (test code = 1819) 40 Lab Interpretation Abnormal (test code = 50193-6) [facility] gas, [id number] 12:15:01 Test Item Value Reference Range Interpretation Comments pH, Arterial (test code 7.52 7.35-7.45 H = 2744-1) pCO2, Arterial (test 26 See_Comment L [Autom ated code = 2019-06) message] The system which generated this result transmitted reference range : 35 - 45 mm Hg. The reference range was not used to interpret this result as normal/abnormal . pO2, Arterial (test 202 See_Comment H [Automa magda code = 2703-7) message] The system which generated this result transmitted reference range : 80 - 90 mm Hg. The reference range was not used to interpret this result as normal/abnormal . O2 Sat, Arterial (test 99.5 % 96.0-97.0 H code = 2708-6) HCO3, Arterial (test 21 mmol/L 21-29 code = 1960-4) Base Excess, Arterial -1.6 mmol/L -2.0-3.0 (test code = 1925-7) Patient Temperature 37.1 (test code = 8310-5) FIO2 (test code = 1819) 40 Lab Interpretation Abnormal (test code = 41880-9) [id number] [facility]:15:01 Test Item Value Reference Range Interpretation Comments pH, Arterial (test code 7.52 7.35-7.45 H = 2744-1) pCO2, Arterial (test 26 See_Comment L [Autom ated code = 2019-06) message] The system which generated this result transmitted reference range : 35 - 45 mm Hg. The reference range was not used to interpret this result as normal/abnormal . pO2, Arterial (test 202 See_Comment H [Automa magda code = 2703-7) message] The system which generated this result transmitted reference range : 80 - 90 mm Hg. The reference range was not used to interpret this result as normal/abnormal . O2 Sat, Arterial (test 99.5 % 96.0-97.0 H code = 2708-6) HCO3, Arterial (test 21 mmol/L 21-29 code = 1960-4) Base Excess, Arterial -1.6 mmol/L -2.0-3.0 (test code = 1925-7) Patient Temperature 37.1 (test code = 8310-5) FIO2 (test code = 1819) 40 Lab Interpretation Abnormal (test code = 47784-8) [facility] [id number] 12:15:01 Test Item Value Reference Range Interpretation Comments pH, Arterial (test code 7.52 7.35-7.45 H = 2744-1) pCO2, Arterial (test 26 See_Comment L [Autom ated code = 2019-06) message] The system which generated this result transmitted reference range : 35 - 45 mm Hg. The reference range was not used to interpret this result as normal/abnormal . pO2, Arterial (test 202 See_Comment H [Automa magda code = 2703-7) message] The system which generated this result transmitted reference range : 80 - 90 mm Hg. The reference range was not used to interpret this result as normal/abnormal . O2 Sat, Arterial (test 99.5 % 96.0-97.0 H code = 2708-6) HCO3, Arterial (test 21 mmol/L 21-29 code = 1960-4) Base Excess, Arterial -1.6 mmol/L -2.0-3.0 (test code = 1925-7) Patient Temperature 37.1 (test code = 8310-5) FIO2 (test code = 1819) 40 Lab Interpretation Abnormal (test code = 25140-8) [facility] [id number] 12:15:01 Test Item Value Reference Range Interpretation Comments pH, Arterial (test code 7.52 7.35-7.45 H = 2744-1) pCO2, Arterial (test 26 See_Comment L [Autom ated code = 2019-06) message] The system which generated this result transmitted reference range : 35 - 45 mm Hg. The reference range was not used to interpret this result as normal/abnormal . pO2, Arterial (test 202 See_Comment H [Automa magda code = 2703-7) message] The system which generated this result transmitted reference range : 80 - 90 mm Hg. The reference range was not used to interpret this result as normal/abnormal . O2 Sat, Arterial (test 99.5 % 96.0-97.0 H code = 2708-6) HCO3, Arterial (test 21 mmol/L 21-29 code = 1960-4) Base Excess, Arterial -1.6 mmol/L -2.0-3.0 (test code = 1925-7) Patient Temperature 37.1 (test code = 8310-5) FIO2 (test code = 1819) 40 Lab Interpretation Abnormal (test code = 73183-7) [facility] [id number] 12:15:01 Test Item Value Reference Range Interpretation Comments pH, Arterial (test code 7.52 7.35-7.45 H = 2744-1) pCO2, Arterial (test 26 See_Comment L [Autom ated code = 2019-06) message] The system which generated this result transmitted reference range : 35 - 45 mm Hg. The reference range was not used to interpret this result as normal/abnormal . pO2, Arterial (test 202 See_Comment H [Automa magda code = 2703-7) message] The system which generated this result transmitted reference range : 80 - 90 mm Hg. The reference range was not used to interpret this result as normal/abnormal . O2 Sat, Arterial (test 99.5 % 96.0-97.0 H code = 2708-6) HCO3, Arterial (test 21 mmol/L 21-29 code = 1960-4) Base Excess, Arterial -1.6 mmol/L -2.0-3.0 (test code = 1925-7) Patient Temperature 37.1 (test code = 8310-5) FIO2 (test code = 1819) 40 Lab Interpretation Abnormal (test code = 67744-2) [facility] [id number] 12:15:01 Test Item Value Reference Range Interpretation Comments pH, Arterial (test code 7.52 7.35-7.45 H = 2744-1) pCO2, Arterial (test 26 See_Comment L [Autom ated code = 2019-06) message] The system which generated this result transmitted reference range : 35 - 45 mm Hg. The reference range was not used to interpret this result as normal/abnormal . pO2, Arterial (test 202 See_Comment H [Automa magda code = 2703-7) message] The system which generated this result transmitted reference range : 80 - 90 mm Hg. The reference range was not used to interpret this result as normal/abnormal . O2 Sat, Arterial (test 99.5 % 96.0-97.0 H code = 2708-6) HCO3, Arterial (test 21 mmol/L 21-29 code = 1960-4) Base Excess, Arterial -1.6 mmol/L -2.0-3.0 (test code = 1925-7) Patient Temperature 37.1 (test code = 8310-5) FIO2 (test code = 1819) 40 Lab Interpretation Abnormal (test code = 03597-0) [facility] [id number] 12:15:01 Test Item Value Reference Range Interpretation Comments pH, Arterial (test code 7.52 7.35-7.45 H = 2744-1) pCO2, Arterial (test 26 See_Comment L [Autom ated code = 2019-06) message] The system which generated this result transmitted reference range : 35 - 45 mm Hg. The reference range was not used to interpret this result as normal/abnormal . pO2, Arterial (test 202 See_Comment H [Automa magda code = 2703-7) message] The system which generated this result transmitted reference range : 80 - 90 mm Hg. The reference range was not used to interpret this result as normal/abnormal . O2 Sat, Arterial (test 99.5 % 96.0-97.0 H code = 2708-6) HCO3, Arterial (test 21 mmol/L 21-29 code = 1960-4) Base Excess, Arterial -1.6 mmol/L -2.0-3.0 (test code = 1925-7) Patient Temperature 37.1 (test code = 8310-5) FIO2 (test code = 1819) 40 Lab Interpretation Abnormal (test code = 12380-1) [facility] [id number] 12:15:01 Test Item Value Reference Range Interpretation Comments pH, Arterial (test code 7.52 7.35-7.45 H = 2744-1) pCO2, Arterial (test 26 See_Comment L [Autom ated code = 2019-8) message] The system which generated this result transmitted reference range : 35 - 45 mm Hg. The reference range was not used to interpret this result as normal/abnormal . pO2, Arterial (test 202 See_Comment H [Automa magda code = 2703-7) message] The system which generated this result transmitted reference range : 80 - 90 mm Hg. The reference range was not used to interpret this result as normal/abnormal . O2 Sat, Arterial (test 99.5 % 96.0-97.0 H code = 2708-6) HCO3, Arterial (test 21 mmol/L 21-29 code = 1960-4) Base Excess, Arterial -1.6 mmol/L -2.0-3.0 (test code = 1925-7) Patient Temperature 37.1 (test code = 8310-5) FIO2 (test code = 1819) 40 Lab Interpretation Abnormal (test code = 43734-0) [facility] [id number] 12:15:01 Test Item Value Reference Range Interpretation Comments pH, Arterial (test code 7.52 7.35-7.45 H = 2744-1) pCO2, Arterial (test 26 See_Comment L [Autom ated code = 2019-8) message] The system which generated this result transmitted reference range : 35 - 45 mm Hg. The reference range was not used to interpret this result as normal/abnormal . pO2, Arterial (test 202 See_Comment H [Automa magda code = 2703-7) message] The system which generated this result transmitted reference range : 80 - 90 mm Hg. The reference range was not used to interpret this result as normal/abnormal . O2 Sat, Arterial (test 99.5 % 96.0-97.0 H code = 2708-6) HCO3, Arterial (test 21 mmol/L 21-29 code = 1960-4) Base Excess, Arterial -1.6 mmol/L -2.0-3.0 (test code = 1925-7) Patient Temperature 37.1 (test code = 8310-5) FIO2 (test code = 1819) 40 Lab Interpretation Abnormal (test code = 58540-3) [facility] [id number] 12:15:01 Test Item Value Reference Range Interpretation Comments PH ARTERIAL (BEAKER) (test code = 7.52 7.35-7.45 H 383) PCO2 ARTERIAL (BEAKER) (test code 26 mm Hg 35-45 L = 384) PO2 ARTERIAL (BEAKER) (test code 202 mm Hg 80-90 H = 385) O2 SATURATION ARTERIAL (BEAKER) 99.5 % 96.0-97.0 H (test code = 386) HCO3 ARTERIAL (BEAKER) (test code 21 mmol/L 21-29 = 388) BASE EXCESS ARTERIAL (BEAKER) -1.6 mmol/L -2.0-3.0 (test code = 387) PATIENT TEMPERATURE (BEAKER) 37.1 (test code = 1818) FIO2 (BEAKER) (test code = 1819) 40.0 HGB/HCT (H&H)-Stat [id number] 12:14:25 Test Item Value Reference Range Interpretation Comments Hemoglobin (test code = 9.3 See_Comment L [Au tomated message] 786-4) The system [employer] generated this result transmitted ref erence range: 12.0 - 1 5.0 GM/DL. The refe rence range was not u sed to interpret this result as normal/abnor mal. Hematocrit (test code = 27.0 % 36.0-45.0 L 4544-3) Lab Interpretation (test Abnormal code = 56068-3) [facility] [id number] 12:14:25 Test Item Value Reference Range Interpretation Comments Hemoglobin (test code = 9.3 See_Comment L [Au tomated message] 786-4) The system [employer] generated this result transmitted ref erence range: 12.0 - 1 5.0 GM/DL. The refe rence range was not u sed to interpret this result as normal/abnor mal. Hematocrit (test code = 27.0 % 36.0-45.0 L 4544-3) Lab Interpretation (test Abnormal code = 53640-9) [facility] [id number] 12:14:25 Test Item Value Reference Range Interpretation Comments Hemoglobin (test code = 9.3 See_Comment L [Au tomated message] 786-4) The system [employer] generated this result transmitted ref erence range: 12.0 - 1 5.0 GM/DL. The refe rence range was not u sed to interpret this result as normal/abnor mal. Hematocrit (test code = 27.0 % 36.0-45.0 L 4544-3) Lab Interpretation (test Abnormal code = 79579-0) [facility] [id number] 12:14:25 Test Item Value Reference Range Interpretation Comments Hemoglobin (test code = 9.3 See_Comment L [Au tomated message] 786-4) The system [employer] generated this result transmitted ref erence range: 12.0 - 1 5.0 GM/DL. The refe rence range was not u sed to interpret this result as normal/abnor mal. Hematocrit (test code = 27.0 % 36.0-45.0 L 4544-3) Lab Interpretation (test Abnormal code = 89998-2) [facility] [id number] 12:14:25 Test Item Value Reference Range Interpretation Comments Hemoglobin (test code = 9.3 See_Comment L [Au tomated message] 786-4) The system [employer] generated this result transmitted ref erence range: 12.0 - 1 5.0 GM/DL. The refe rence range was not u sed to interpret this result as normal/abnor mal. Hematocrit (test code = 27.0 % 36.0-45.0 L 4544-3) Lab Interpretation (test Abnormal code = 25822-7) [facility] [id number] 12:14:25 Test Item Value Reference Range Interpretation Comments Hemoglobin (test code = 9.3 See_Comment L [Au tomated message] 786-4) The system [employer] generated this result transmitted ref erence range: 12.0 - 1 5.0 GM/DL. The refe rence range was not u sed to interpret this result as normal/abnor mal. Hematocrit (test code = 27.0 % 36.0-45.0 L 4544-3) Lab Interpretation (test Abnormal code = 03446-6) [facility] [id number] 12:14:25 Test Item Value Reference Range Interpretation Comments Hemoglobin (test code = 9.3 See_Comment L [Au tomated message] 786-4) The system [employer] generated this result transmitted ref erence range: 12.0 - 1 5.0 GM/DL. The refe rence range was not u sed to interpret this result as normal/abnor mal. Hematocrit (test code = 27.0 % 36.0-45.0 L 4544-3) Lab Interpretation (test Abnormal code = 02082-5) [facility] [id number] 12:14:25 Test Item Value Reference Range Interpretation Comments Hemoglobin (test code = 9.3 See_Comment L [Au tomated message] 786-4) The system [employer] generated this result transmitted ref erence range: 12.0 - 1 5.0 GM/DL. The refe rence range was not u sed to interpret this result as normal/abnor mal. Hematocrit (test code = 27.0 % 36.0-45.0 L 4544-3) Lab Interpretation (test Abnormal code = 12298-3) [facility] [id number] 12:14:25 Test Item Value Reference Range Interpretation Comments Hemoglobin (test code = 9.3 See_Comment L [Au tomated message] 786-4) The system [employer] generated this result transmitted ref erence range: 12.0 - 1 5.0 GM/DL. The refe rence range was not u sed to interpret this result as normal/abnor mal. Hematocrit (test code = 27.0 % 36.0-45.0 L 4544-3) Lab Interpretation (test Abnormal code = 10060-5) [facility] [id number] 12:14:25 Test Item Value Reference Range Interpretation Comments Hemoglobin (test code = 9.3 See_Comment L [Au tomated message] 786-4) The system [employer] generated this result transmitted ref erence range: 12.0 - 1 5.0 GM/DL. The refe rence range was not u sed to interpret this result as normal/abnor mal. Hematocrit (test code = 27.0 % 36.0-45.0 L 4544-3) Lab Interpretation (test Abnormal code = 21769-3) [facility] [id number] 12:14:25 Test Item Value Reference Range Interpretation Comments Hemoglobin (test code = 9.3 See_Comment L [Au tomated message] 786-4) The system [employer] generated this result transmitted ref erence range: 12.0 - 1 5.0 GM/DL. The refe rence range was not u sed to interpret this result as normal/abnor mal. Hematocrit (test code = 27.0 % 36.0-45.0 L 4544-3) Lab Interpretation (test Abnormal code = 64638-0) [facility] [id number] 12:14:25 Test Item Value Reference Range Interpretation Comments HEMOGLOBIN (BEAKER) (test code = 9.3 GM/DL 12.0-15.0 L 410) HEMATOCRIT (BEAKER) (test code = 27.0 % 36.0-45.0 L 411) Glucose-Stat [id number] 12:14:24 Test Item Value Reference Range Interpretation Comments Glucose (test code = 2345-7) 175 mg/dL 70-110 H Lab Interpretation (test code = Abnormal 56293-9) [facility] [id number] 12:14:24 Test Item Value Reference Range Interpretation Comments Glucose (test code = 2345-7) 175 mg/dL 70-110 H Lab Interpretation (test code = Abnormal 53365-0) [facility] [id number] 12:14:24 Test Item Value Reference Range Interpretation Comments Glucose (test code = 2345-7) 175 mg/dL 70-110 H Lab Interpretation (test code = Abnormal 32759-6) [facility] [id number] 12:14:24 Test Item Value Reference Range Interpretation Comments Glucose (test code = 2345-7) 175 mg/dL 70-110 H Lab Interpretation (test code = Abnormal 90083-9) [facility] [id number] 12:14:24 Test Item Value Reference Range Interpretation Comments Glucose (test code = 2345-7) 175 mg/dL 70-110 H Lab Interpretation (test code = Abnormal 89499-4) [facility] [id number] 12:14:24 Test Item Value Reference Range Interpretation Comments Glucose (test code = 2345-7) 175 mg/dL 70-110 H Lab Interpretation (test code = Abnormal 76106-0) [facility] [id number] 12:14:24 Test Item Value Reference Range Interpretation Comments Glucose (test code = 2345-7) 175 mg/dL 70-110 H Lab Interpretation (test code = Abnormal 00451-6) [facility] [id number] 12:14:24 Test Item Value Reference Range Interpretation Comments Glucose (test code = 2345-7) 175 mg/dL 70-110 H Lab Interpretation (test code = Abnormal 05295-7) [facility] [id number] 12:14:24 Test Item Value Reference Range Interpretation Comments Glucose (test code = 2345-7) 175 mg/dL 70-110 H Lab Interpretation (test code = Abnormal 50819-2) [facility] [id number] 12:14:24 Test Item Value Reference Range Interpretation Comments Glucose (test code = 2345-7) 175 mg/dL 70-110 H Lab Interpretation (test code = Abnormal 21500-0) [facility] [id number] 12:14:24 Test Item Value Reference Range Interpretation Comments Glucose (test code = 2345-7) 175 mg/dL 70-110 H Lab Interpretation (test code = Abnormal 92869-9) [facility] [id number] 12:14:24 Test Item Value Reference Range Interpretation Comments GLUCOSE RANDOM (BEAKER) (test code 175 mg/dL 70-110 H = 652) Sodium Na-Stat [id number] 12:13:47 Test Item Value Reference Range Interpretation Comments Sodium (test code = 2951-2) 136 meq/L 136-145 Lab Interpretation (test code = Normal 92844-1) [facility] [id number] 12:13:47 Test Item Value Reference Range Interpretation Comments Potassium (test code = 2823-3) 3.8 meq/L 3.6-5.5 Lab Interpretation (test code = Normal 07546-5) [facility] [id number] 12:13:47 Test Item Value Reference Range Interpretation Comments Sodium (test code = 2951-2) 136 meq/L 136-145 Lab Interpretation (test code = Normal 55120-6) [facility] [id number] 12:13:47 Test Item Value Reference Range Interpretation Comments Potassium (test code = 2823-3) 3.8 meq/L 3.6-5.5 Lab Interpretation (test code = Normal 48742-6) [facility] [id number] 12:13:47 Test Item Value Reference Range Interpretation Comments Sodium (test code = 2951-2) 136 meq/L 136-145 Lab Interpretation (test code = Normal 74746-3) [facility] [id number] 12:13:47 Test Item Value Reference Range Interpretation Comments Potassium (test code = 2823-3) 3.8 meq/L 3.6-5.5 Lab Interpretation (test code = Normal 85017-4) [facility] [place]-Stat [id number] 12:13:47 Test Item Value Reference Range Interpretation Comments Sodium (test code = 2951-2) 136 meq/L 136-145 Lab Interpretation (test code = Normal 42803-6) [facility] [id number] 12:13:47 Test Item Value Reference Range Interpretation Comments Potassium (test code = 2823-3) 3.8 meq/L 3.6-5.5 Lab Interpretation (test code = Normal 70801-7) [facility] [place] Na-Stat [id number] 12:13:47 Test Item Value Reference Range Interpretation Comments Sodium (test code = 2951-2) 136 meq/L 136-145 Lab Interpretation (test code = Normal 90512-6) [facility] [id number] 12:13:47 Test Item Value Reference Range Interpretation Comments Potassium (test code = 2823-3) 3.8 meq/L 3.6-5.5 Lab Interpretation (test code = Normal 39646-0) [facility] [place] Na-Stat [id number] 12:13:47 Test Item Value Reference Range Interpretation Comments Sodium (test code = 2951-2) 136 meq/L 136-145 Lab Interpretation (test code = Normal 89516-7) [facility] [id number] 12:13:47 Test Item Value Reference Range Interpretation Comments Potassium (test code = 2823-3) 3.8 meq/L 3.6-5.5 Lab Interpretation (test code = Normal 62417-6) [facility] [place] Na-Stat [id number] 12:13:47 Test Item Value Reference Range Interpretation Comments Sodium (test code = 2951-2) 136 meq/L 136-145 Lab Interpretation (test code = Normal 41835-8) [facility] [id number] 12:13:47 Test Item Value Reference Range Interpretation Comments Potassium (test code = 2823-3) 3.8 meq/L 3.6-5.5 Lab Interpretation (test code = Normal 51996-4) [facility] [place] Na-Stat [id number] 12:13:47 Test Item Value Reference Range Interpretation Comments Sodium (test code = 2951-2) 136 meq/L 136-145 Lab Interpretation (test code = Normal 50608-0) [facility] [id number] 12:13:47 Test Item Value Reference Range Interpretation Comments Potassium (test code = 2823-3) 3.8 meq/L 3.6-5.5 Lab Interpretation (test code = Normal 13976-9) [facility] [place] Na-Stat [id number] 12:13:47 Test Item Value Reference Range Interpretation Comments Sodium (test code = 2951-2) 136 meq/L 136-145 Lab Interpretation (test code = Normal 93987-1) [facility] [id number] 12:13:47 Test Item Value Reference Range Interpretation Comments Potassium (test code = 2823-3) 3.8 meq/L 3.6-5.5 Lab Interpretation (test code = Normal 65750-3) [facility] [place] Na-Stat [id number] 12:13:47 Test Item Value Reference Range Interpretation Comments Sodium (test code = 2951-2) 136 meq/L 136-145 Lab Interpretation (test code = Normal 66299-7) [facility] [id number] 12:13:47 Test Item Value Reference Range Interpretation Comments Potassium (test code = 2823-3) 3.8 meq/L 3.6-5.5 Lab Interpretation (test code = Normal 92959-5) [facility] [place] Na-Stat [id number] 12:13:47 Test Item Value Reference Range Interpretation Comments Sodium (test code = 2951-2) 136 meq/L 136-145 Lab Interpretation (test code = Normal 48671-8) [facility] [id number] 12:13:47 Test Item Value Reference Range Interpretation Comments Potassium (test code = 2823-3) 3.8 meq/L 3.6-5.5 Lab Interpretation (test code = Normal 46459-3) [facility] [id number] 12:13:47 Test Item Value Reference Range Interpretation Comments SODIUM (BEAKER) (test code = 381) 136 meq/L 136-145 POTASSIUM-STAT [id number] 12:13:47 Test Item Value Reference Range Interpretation Comments POTASSIUM (BEAKER) (test code = 3.8 meq/L 3.6-5.5 379) POCT-GLUCOSE [id number] 12:05:31 Test Item Value Reference Range Interpretation Comments POC-GLUCOSE METER 158 mg/dL 70-110 H : TESTED A T [facility] 6720 (BEAKER) (test code = DELMIS MAYNARD ID, [id number]) [id number]: Trimmer Operator/Techni yordy ID = [id number] for Nicole Nelson (CELLAVISION MANUAL DIFF)2022-03-08 06:50:39 Test Item Value Reference Range Interpretation Comments NEUTROPHILS - REL 75 % (CELLAVISION)(BEAKER) (test code = 2816) LYMPHOCYTES - REL 9 % (CELLAVISION)(BEAKER) (test code = 2817) MONOCYTES - REL 8 % (CELLAVISION)(BEAKER) (test code = 2818) METAMYELOCYTES - REL 1 % 0-0 H (CELLAVISION)(BEAKER) (test code = 2821) BANDS - REL (CELLAVISION)(BEAKER) 7 % 0-10 (test code = 2826) NEUTROPHILS - ABS 4.73 K/ul 1.56-6.13 (CELLAVISION)(BEAKER) (test code = 2830) LYMPHOCYTES - ABS 0.57 K/ul 1.18-3.74 L (CELLAVISION)(BEAKER) (test code = 2831) MONOCYTES - ABS 0.50 K/uL 0.24-0.36 H (CELLAVISION)(BEAKER) (test code = 2832) METAMYELOCYTES - ABS 0.06 K/uL 0.00-0.00 H (CELLAVISION)(BEAKER) (test code = 2836) BANDS - ABS (CELLAVISION)(BEAKER) 0.44 K/uL 0.00-0.80 (test code = 2840) TOTAL COUNTED (BEAKER) (test code = 100 1351) WBC MORPHOLOGY (BEAKER) (test code Normal = 487) PLT MORPHOLOGY (BEAKER) (test code Normal = 486) POLYCHROMATOPHILLIC RBCS(BEAKER) 1+ few (test code = 478) ANISOCYTOSIS (BEAKER) (test code = 1+ few 961) MICROCYTES (BEAKER) (test code = 1+ few 965) POIKILOCYTES (BEAKER) (test code = 1+ few 966) OVALOCYTES (BEAKER) (test code = 1+ few 477) ARTIFACT (CELLAVISION)(BEAKER) Present (test code = 3432) PLATELET CONCENTRATION Decreased (CELLAVISION)(BEAKER) (test code = 3438) Trimmer Operator ID - Mary Funez comments: Slide comments:CBC W/PLT COUNT & AUTO [id number] 06:50:33 Test Item Value Reference Range Interpretation Comments WHITE BLOOD CELL COUNT (BEAKER) 6.3 K/ L 3.5-10.5 (test code = 775) RED BLOOD CELL COUNT (BEAKER) 2.89 M/ L 3.93-5.22 L (test code = 761) HEMOGLOBIN (BEAKER) (test code = 9.2 GM/DL 11.2-15.7 L 410) HEMATOCRIT (BEAKER) (test code = 27.5 % 34.1-44.9 L 411) MEAN CORPUSCULAR VOLUME (BEAKER) 95.2 fL 79.4-94.8 H (test code = 753) MEAN CORPUSCULAR HEMOGLOBIN 31.8 pg 25.6-32.2 (BEAKER) (test code = 751) MEAN CORPUSCULAR HEMOGLOBIN CONC 33.5 GM/DL 32.2-35.5 (BEAKER) (test code = 752) RED CELL DISTRIBUTION WIDTH 18.6 % 11.7-14.4 H (BEAKER) (test code = 412) PLATELET COUNT (BEAKER) (test 141 K/CU MM 150-450 L code = 756) MEAN PLATELET VOLUME (BEAKER) 10.3 fL 9.4-12.3 (test code = 754) NUCLEATED RED BLOOD CELLS 0 /100 WBC 0-0 (BEAKER) (test code = 413) POCT-GLUCOSE [id number] 05:31:04 Test Item Value Reference Range Interpretation Comments POC-GLUCOSE METER 138 mg/dL 70-110 H : TESTED A T [facility] 6720 (BEAKER) (test code = DELMIS MAYNARD ID, [id number]) [id number]: Trimmer Operator/Techni yordy ID = [id number] for JUSTINA BRAVO [id number] 05:22:58 Test Item Value Reference Range Interpretation Comments PHOSPHORUS (BEAKER) 3.0 mg/dL 2.3-4.7 Specimen slightly (test code = 604) hemolyzed Trimmer Operator ID - ADMINCOMPREHENSIVE METABOLIC [id number] 05:22:58 Test Item Value Reference Range Interpretation Comments TOTAL PROTEIN 5.3 gm/dL 6.0-8.3 L Specimen sligh tly (BEAKER) (test code = hemoly zed 770) ALBUMIN (BEAKER) 3.8 g/dL 3.5-5.0 Specimen sl ightly (test code = 1145) hemolyzed ALKALINE PHOSPHATASE 22 U/L 40-150 L (BEAKER) (test code = 346) BILIRUBIN TOTAL 1.0 mg/dL 0.2-1.2 Specimen sli ghtly (BEAKER) (test code = hemoly zed 377) SODIUM (BEAKER) (test 140 meq/L 136-145 code = 381) POTASSIUM (BEAKER) 3.3 meq/L 3.5-5.1 L Specimen slightly (test code = 379) hemolyzed CHLORIDE (BEAKER) 108 meq/L 98-107 H (test code = 382) CO2 (BEAKER) (test 22 meq/L 22-29 code = 355) BLOOD UREA NITROGEN 12 mg/dL 7-21 (BEAKER) (test code = 354) CREATININE (BEAKER) 0.59 mg/dL 0.57-1.25 Specimen slightly (test code = 358) hemolyzed GLUCOSE RANDOM 172 mg/dL 70-105 H (BEAKER) (test code = 652) CALCIUM (BEAKER) 8.8 mg/dL 8.4-10.2 (test code = 697) AST (SGOT) (BEAKER) 33 U/L 5-34 Specimen slightly (test code = 353) hemolyzed ALT (SGPT) (BEAKER) 11 U/L 6-55 Specimen slightly (test code = 347) hemolyzed EGFR (BEAKER) (test 100 ESTIMATE D GFR IS code = 1092) mL/min/1.73 sq NOT ACCURA TE m CREATININE CLEARANCE IN PREDICTING GLOMERULAR FILTRATION RATE . ESTIMATED GFR I S NOT APPLICABLE FOR DIALYSIS PATIEN TS. Trimmer Operator ID - [id number] 05:22:57 Test Item Value Reference Range Interpretation Comments MAGNESIUM (BEAKER) 1.2 mg/dL 1.6-2.6 L Specimen slightly (test code = 627) hemolyzed Trimmer Operator ID - ADMINHGB/HCT (H&H) - STAT [id number] 05:10:15 Test Item Value Reference Range Interpretation Comments HEMOGLOBIN (BEAKER) (test code = 9.9 GM/DL 12.0-15.0 L 410) HEMATOCRIT (BEAKER) (test code = 29.0 % 36.0-45.0 L 411) POTASSIUM-STAT [id number] 05:10:14 Test Item Value Reference Range Interpretation Comments POTASSIUM (BEAKER) (test code = 3.0 meq/L 3.6-5.5 L 379) GLUCOSE-STAT [id number] 05:10:14 Test Item Value Reference Range Interpretation Comments GLUCOSE RANDOM (BEAKER) (test code 168 mg/dL 70-110 H = 652) SODIUM NA-STAT [id number] 05:10:08 Test Item Value Reference Range Interpretation Comments SODIUM (BEAKER) (test code = 381) 138 meq/L 136-145 BLOOD GAS, [id number] 05:09:52 Test Item Value Reference Range Interpretation Comments PH ARTERIAL (BEAKER) (test code = 7.43 7.35-7.45 383) PCO2 ARTERIAL (BEAKER) (test code 35 mm Hg 35-45 = 384) PO2 ARTERIAL (BEAKER) (test code 206 mm Hg 80-90 H = 385) O2 SATURATION ARTERIAL (BEAKER) 99.4 % 96.0-97.0 H (test code = 386) HCO3 ARTERIAL (BEAKER) (test code 23 mmol/L 21-29 = 388) BASE EXCESS ARTERIAL (BEAKER) -1.4 mmol/L -2.0-3.0 (test code = 387) PATIENT TEMPERATURE (BEAKER) 37.0 (test code = 1818) FIO2 (BEAKER) (test code = 1819) 100.0 [id number] 05:05:45 Test Item Value Reference Range Interpretation Comments PROTIME (BEAKER) (test 17.5 seconds 11.9-14.2 H code = 759) INR (BEAKER) (test 1.45 See_Comment [Automat ed code = 370) message] The sy stem which generated this result transmitted reference range : <=5.90. The reference range was not used to interpret this result as normal/abnormal . PARTIAL THROMBOPLASTIN 32.4 seconds 22.5-36.0 TIME (BEAKER) (test code = 760) RECOMMENDED COUMADIN/WARFARIN INR THERAPY RANGESSTANDARD DOSE: 2.0 - 3.0 Includes: PROPHYLAXIS for venous thrombosis, systemic embolization; TREATMENT for venous thrombosis and/or pulmonary embolus.HIGH RISK: Target INR is 2.5-3.5 for patients with mechanical heart valves.RAD, CHEST, 1 VIEW, NON [id number] 04:25:00Reason for exam:->intubatedShould this be performed at the bedside?->Yes[facility] : 1950 Sex: FFINAL REPORT RAD, CHEST, 1 VIEW, NON DEPT INDICATION: intubated COMPARISON: Prior day's exam FINDINGS: Portable frontal view of the chest. IMPRESSION: Support Lines: Stable. Lungs andpleura: Unchanged airspace and pleural opacities. No pneumothorax.Heart and mediastinum: Stable contours. Additional findings: None. Signed: Shayna Meyerort Verified Date/Time: 03/08/2022 04:25:19 POCT-GLUCOSE [id number] 01:14:44 Test Item Value Reference Range Interpretation Comments POC-GLUCOSE METER 221 mg/dL 70-110 H : TESTED A T [facility] 6720 (Incap) (test code = [place], [id number]) [id number]: Trimmer Operator/Techni yordy ID = [id number] for JUSTINA BRAVO RAD, CHEST, 1 VIEW, NON [id number] 22:36:00Reason for exam:->ETT placementShould this be performed at the bedside?->Yes [facility] : 1950 Sex: FFINAL REPORT EXAM: Chest one view COMPARISON: March 03, 2022 CLINICAL HISTORY: ET tube placement FINDINGS: The endotracheal tube overlies the trachea with its tip approximately 4 cm above the ila. The tip of the nasogastric tube overlies the GE junction. Advancement is recommended.The tip of the right internal jugular central venous catheter overlies the cavoatrial junction. The t ip of the right internal jugular chest port also overlies the cavoatrial junction. Small right pleural effusion with associated atelectasis is noted. The cardiac size is within normal limits. There is no evidence of pneumothorax. The regional osseous structures are unremarkable. Signed: Ramon Lee MDReport Verified Date/Time: 03/07/2022 22:36:50 BLOOD GAS, [id number] 19:51:23 Test Item Value Reference Range Interpretation Comments PH ARTERIAL (BEAKER) (test code = 7.46 7.35-7.45 H 383) PCO2 ARTERIAL (BEAKER) (test code 31 mm Hg 35-45 L = 384) PO2 ARTERIAL (BEAKER) (test code 187 mm Hg 80-90 H = 385) O2 SATURATION ARTERIAL (BEAKER) 99.4 % 96.0-97.0 H (test code = 386) HCO3 ARTERIAL (BEAKER) (test code 22 mmol/L 21-29 = 388) BASE EXCESS ARTERIAL (BEAKER) -1.7 mmol/L -2.0-3.0 (test code = 387) PATIENT TEMPERATURE (BEAKER) 37.0 (test code = 1818) FIO2 (BEAKER) (test code = 1819) 21.0 RAD, ABDOMEN/KUB, 1 VIEW [id number] 19:42:00Reason for exam:->Verify tube position following insertion of naso-enteric feeding tubeShould this be performed at the bedside?->Yes [facility] : 1950 Sex: FFINAL REPORT EXAM: KUB CLINICAL HISTORY: NG tube insertion FINDINGS: The tip of the nasogastric tube overlies the proximal stomach. There is nonobstructive bowel gas pattern with moderate retained feces in the colon. A surgical drain is also seen overlying the pelvic region. Degenerative changes are noted throughout the lumbar spine. Signed: Ramon Lee MDReport Verified Date/Time: 03/07/2022 19:42:31 COMPREHENSIVE METABOLIC [id number] 19:23:24 Test Item Value Reference Range Interpretation Comments TOTAL PROTEIN 6.2 gm/dL 6.0-8.3 (BEAKER) (test code = 770) ALBUMIN (BEAKER) 4.8 g/dL 3.5-5.0 (test code = 1145) ALKALINE PHOSPHATASE 20 U/L 40-150 L (BEAKER) (test code = 346) BILIRUBIN TOTAL 1.9 mg/dL 0.2-1.2 H (BEAKER) (test code = 377) SODIUM (BEAKER) (test 142 meq/L 136-145 code = 381) POTASSIUM (BEAKER) 3.0 meq/L 3.5-5.1 L (test code = 379) CHLORIDE (BEAKER) 109 meq/L 98-107 H (test code = 382) CO2 (BEAKER) (test 23 meq/L 22-29 code = 355) BLOOD UREA NITROGEN 10 mg/dL 7-21 (BEAKER) (test code = 354) CREATININE (BEAKER) 0.64 mg/dL 0.57-1.25 (test code = 358) GLUCOSE RANDOM 185 mg/dL 70-105 H (BEAKER) (test code = 652) CALCIUM (BEAKER) 9.4 mg/dL 8.4-10.2 (test code = 697) AST (SGOT) (BEAKER) 21 U/L 5-34 (test code = 353) ALT (SGPT) (BEAKER) 10 U/L 6-55 (test code = 347) EGFR (BEAKER) (test 91 mL/min/1.73 ESTIMA MAGDA GFR IS code = 1092) sq m NOT ACCURATE CREATININE CLEARANCE IN PREDICTING GLOMERULAR FILTRATION RATE . ESTIMATED GFR I S NOT APPLICABLE FOR DIALYSIS PATIEN TS. Trimmer Operator ID - [id number] 19:22:58 Test Item Value Reference Range Interpretation Comments PHOSPHORUS (BEAKER) (test code = 2.4 mg/dL 2.3-4.7 604) Trimmer Operator ID - [id number] 19:22:57 Test Item Value Reference Range Interpretation Comments MAGNESIUM (BEAKER) (test code = 1.2 mg/dL 1.6-2.6 L 627) Trimmer Operator ID - [id number] 19:10:51 Test Item Value Reference Range Interpretation Comments PROTIME (BEAKER) (test 18.2 seconds 11.9-14.2 H code = 759) INR (BEAKER) (test 1.54 See_Comment [Automat ed code = 370) message] The sy stem which generated this result transmitted reference range : <=5.90. The reference range was not used to interpret this result as normal/abnormal . PARTIAL THROMBOPLASTIN 33.6 seconds 22.5-36.0 TIME (BEAKER) (test code = 760) RECOMMENDED COUMADIN/WARFARIN INR THERAPY RANGESSTANDARD DOSE: 2.0 - 3.0 Includes: PROPHYLAXIS for venous thrombosis, systemic embolization; TREATMENT for venous thrombosis and/or pulmonary embolus.HIGH RISK: Target INR is 2.5-3.5 for patients with mechanical heart valves.CBC W/PLT COUNT & AUTO [id number] 19:07:34 Test Item Value Reference Range Interpretation Comments WHITE BLOOD CELL COUNT (BEAKER) 5.3 K/ L 3.5-10.5 (test code = 775) RED BLOOD CELL COUNT (BEAKER) 3.07 M/ L 3.93-5.22 L (test code = 761) HEMOGLOBIN (BEAKER) (test code = 9.7 GM/DL 11.2-15.7 L 410) HEMATOCRIT (BEAKER) (test code = 30.2 % 34.1-44.9 L 411) MEAN CORPUSCULAR VOLUME (BEAKER) 98.4 fL 79.4-94.8 H (test code = 753) MEAN CORPUSCULAR HEMOGLOBIN 31.6 pg 25.6-32.2 (BEAKER) (test code = 751) MEAN CORPUSCULAR HEMOGLOBIN CONC 32.1 GM/DL 32.2-35.5 L (BEAKER) (test code = 752) RED CELL DISTRIBUTION WIDTH 18.1 % 11.7-14.4 H (BEAKER) (test code = 412) PLATELET COUNT (BEAKER) (test 143 K/CU MM 150-450 L code = 756) MEAN PLATELET VOLUME (BEAKER) 10.0 fL 9.4-12.3 (test code = 754) NUCLEATED RED BLOOD CELLS 0 /100 WBC 0-0 (BEAKER) (test code = 413) POCT-GLUCOSE [id number] 17:57:47 Test Item Value Reference Range Interpretation Comments POC-GLUCOSE METER 170 mg/dL 70-110 H : TESTED A T [facility] 6720 (BEAKER) (test code = [place], 1538) [id number]: Trimmer Operator/Techni yordy ID = [id number] for Cely Pressley HGB/HCT (H&H) - STAT [id number] 16:26:28 Test Item Value Reference Range Interpretation Comments HEMOGLOBIN (BEAKER) (test code = 8.9 GM/DL 12.0-15.0 L 410) HEMATOCRIT (BEAKER) (test code = 26.0 % 36.0-45.0 L 411) BLOOD GAS, [id number] 16:26:27 Test Item Value Reference Range Interpretation Comments PH ARTERIAL (BEAKER) (test code = 7.38 7.35-7.45 383) PCO2 ARTERIAL (BEAKER) (test code 33 mm Hg 35-45 L = 384) PO2 ARTERIAL (BEAKER) (test code 244 mm Hg 80-90 H = 385) O2 SATURATION ARTERIAL (BEAKER) 99.6 % 96.0-97.0 H (test code = 386) HCO3 ARTERIAL (BEAKER) (test code 20 mmol/L 21-29 L = 388) BASE EXCESS ARTERIAL (BEAKER) -5.1 mmol/L -2.0-3.0 L (test code = 387) PATIENT TEMPERATURE (BEAKER) 35.5 (test code = 1818) FIO2 (BEAKER) (test code = 1819) 50.0 GLUCOSE-STAT [id number] 16:26:27 Test Item Value Reference Range Interpretation Comments GLUCOSE RANDOM (BEAKER) (test code 206 mg/dL 70-110 H = 652) POTASSIUM-STAT [id number] 16:26:17 Test Item Value Reference Range Interpretation Comments POTASSIUM (BEAKER) (test code = 3.6 meq/L 3.6-5.5 379) SODIUM NA-STAT [id number] 16:26:16 Test Item Value Reference Range Interpretation Comments SODIUM (BEAKER) (test code = 381) 140 meq/L 136-145 Calcium, [id number] 15:33:56 Test Item Value Reference Range Interpretation Comments Calcium, Ion (test code = 1994-01) 1.04 mmol/L 1.12-1.27 L pH, Blood (test code = 64753-3) 7.40 Lab Interpretation (test code = Abnormal 67805-6) [id number] 15:33:56 Test Item Value Reference Range Interpretation Comments Calcium, Ion (test code = 1994-01) 1.04 mmol/L 1.12-1.27 L pH, Blood (test code = 85874-4) 7.40 Lab Interpretation (test code = Abnormal 86310-8) [facility] [id number] 15:33:56 Test Item Value Reference Range Interpretation Comments Calcium, Ion (test code = 1994-01) 1.04 mmol/L 1.12-1.27 L pH, Blood (test code = 84149-4) 7.40 Lab Interpretation (test code = Abnormal 37667-1) [facility] [id number] 15:33:56 Test Item Value Reference Range Interpretation Comments Calcium, Ion (test code = 1994-01) 1.04 mmol/L 1.12-1.27 L pH, Blood (test code = 90721-9) 7.40 Lab Interpretation (test code = Abnormal 58287-5) [facility] [id number] 15:33:56 Test Item Value Reference Range Interpretation Comments Calcium, Ion (test code = 1994-01) 1.04 mmol/L 1.12-1.27 L pH, Blood (test code = 52076-2) 7.40 Lab Interpretation (test code = Abnormal 40211-1) [facility] [id number] 15:33:56 Test Item Value Reference Range Interpretation Comments Calcium, Ion (test code = 1994-01) 1.04 mmol/L 1.12-1.27 L pH, Blood (test code = 93802-3) 7.40 Lab Interpretation (test code = Abnormal 52407-6) [facility] [id number] 15:33:56 Test Item Value Reference Range Interpretation Comments Calcium, Ion (test code = 1994-01) 1.04 mmol/L 1.12-1.27 L pH, Blood (test code = 29435-1) 7.40 Lab Interpretation (test code = Abnormal 57017-9) [facility] [id number] 15:33:56 Test Item Value Reference Range Interpretation Comments Calcium, Ion (test code = 1994-01) 1.04 mmol/L 1.12-1.27 L pH, Blood (test code = 76638-4) 7.40 Lab Interpretation (test code = Abnormal 70206-0) [facility], [id number] 15:33:56 Test Item Value Reference Range Interpretation Comments Calcium, Ion (test code = 1994-01) 1.04 mmol/L 1.12-1.27 L pH, Blood (test code = 80379-0) 7.40 Lab Interpretation (test code = Abnormal 24522-7) [facility], [id number] 15:33:56 Test Item Value Reference Range Interpretation Comments Calcium, Ion (test code = 1994-01) 1.04 mmol/L 1.12-1.27 L pH, Blood (test code = 46944-4) 7.40 Lab Interpretation (test code = Abnormal 09430-9) [facility] [id number] 15:33:56 Test Item Value Reference Range Interpretation Comments Calcium, Ion (test code = 1994-01) 1.04 mmol/L 1.12-1.27 L pH, Blood (test code = 21130-3) 7.40 Lab Interpretation (test code = Abnormal 61358-9) [facility] [id number] 15:33:56 Test Item Value Reference Range Interpretation Comments CALCIUM IONIZED (BEAKER) (test 1.04 mmol/L 1.12-1.27 L code = 698) PH, BLOOD (BEAKER) (test code = 7.40 1810) HGB/HCT (H&H) - STAT [id number] 15:33:56 Test Item Value Reference Range Interpretation Comments HEMOGLOBIN (BEAKER) (test code = 7.2 GM/DL 12.0-15.0 L 410) HEMATOCRIT (BEAKER) (test code = 21.0 % 36.0-45.0 L 411) BLOOD GAS, [id number] 15:33:55 Test Item Value Reference Range Interpretation Comments PH ARTERIAL (BEAKER) (test code = 7.40 7.35-7.45 383) PCO2 ARTERIAL (BEAKER) (test code 35 mm Hg 35-45 = 384) PO2 ARTERIAL (BEAKER) (test code 203 mm Hg 80-90 H = 385) O2 SATURATION ARTERIAL (BEAKER) 99.4 % 96.0-97.0 H (test code = 386) HCO3 ARTERIAL (BEAKER) (test code 21 mmol/L 21-29 = 388) BASE EXCESS ARTERIAL (BEAKER) -3.6 mmol/L -2.0-3.0 L (test code = 387) PATIENT TEMPERATURE (BEAKER) 37.5 (test code = 1818) FIO2 (BEAKER) (test code = 1819) 47.0 GLUCOSE-STAT [id number] 15:33:55 Test Item Value Reference Range Interpretation Comments GLUCOSE RANDOM (BEAKER) (test code 169 mg/dL 70-110 H = 652) POTASSIUM-STAT [id number] 15:33:00 Test Item Value Reference Range Interpretation Comments POTASSIUM (BEAKER) (test code = 3.6 meq/L 3.6-5.5 379) SODIUM NA-STAT [id number] 15:32:59 Test Item Value Reference Range Interpretation Comments SODIUM (BEAKER) (test code = 381) 140 meq/L 136-145 CALCIUM, [id number] 14:29:21 Test Item Value Reference Range Interpretation Comments CALCIUM IONIZED (BEAKER) (test 1.12 mmol/L 1.12-1.27 code = 698) PH, BLOOD (BEAKER) (test code = 7.30 1810) BLOOD GAS, [id number] 14:28:42 Test Item Value Reference Range Interpretation Comments PH ARTERIAL (BEAKER) (test code = 7.30 7.35-7.45 L 383) PCO2 ARTERIAL (BEAKER) (test code 40 mm Hg 35-45 = 384) PO2 ARTERIAL (BEAKER) (test code 227 mm Hg 80-90 H = 385) O2 SATURATION ARTERIAL (BEAKER) 99.4 % 96.0-97.0 H (test code = 386) HCO3 ARTERIAL (BEAKER) (test code 19 mmol/L 21-29 L = 388) BASE EXCESS ARTERIAL (BEAKER) -6.7 mmol/L -2.0-3.0 L (test code = 387) PATIENT TEMPERATURE (BEAKER) 36.9 (test code = 1818) FIO2 (BEAKER) (test code = 1819) 48.0 GLUCOSE-STAT [id number] 14:28:42 Test Item Value Reference Range Interpretation Comments GLUCOSE RANDOM (BEAKER) (test code 159 mg/dL 70-110 H = 652) HGB/HCT (H&H) - STAT [id number] 14:28:42 Test Item Value Reference Range Interpretation Comments HEMOGLOBIN (BEAKER) (test code = 8.1 GM/DL 12.0-15.0 L 410) HEMATOCRIT (BEAKER) (test code = 24.0 % 36.0-45.0 L 411) POTASSIUM-STAT [id number] 14:28:25 Test Item Value Reference Range Interpretation Comments POTASSIUM (BEAKER) (test code = 3.8 meq/L 3.6-5.5 379) SODIUM NA-STAT [id number] 14:28:24 Test Item Value Reference Range Interpretation Comments SODIUM (BEAKER) (test code = 381) 138 meq/L 136-145 HGB/HCT (H&H) - STAT [id number] 14:01:02 Test Item Value Reference Range Interpretation Comments HEMOGLOBIN (BEAKER) (test code = 7.3 GM/DL 12.0-15.0 L 410) HEMATOCRIT (BEAKER) (test code = 21.0 % 36.0-45.0 L 411) BLOOD GAS, [id number] 14:01:01 Test Item Value Reference Range Interpretation Comments PH ARTERIAL (BEAKER) (test code = 7.28 7.35-7.45 L 383) PCO2 ARTERIAL (BEAKER) (test code 45 mm Hg 35-45 = 384) PO2 ARTERIAL (BEAKER) (test code 239 mm Hg 80-90 H = 385) O2 SATURATION ARTERIAL (BEAKER) 99.4 % 96.0-97.0 H (test code = 386) HCO3 ARTERIAL (BEAKER) (test code 21 mmol/L 21-29 = 388) BASE EXCESS ARTERIAL (BEAKER) -5.7 mmol/L -2.0-3.0 L (test code = 387) PATIENT TEMPERATURE (BEAKER) 37.6 (test code = 1818) FIO2 (BEAKER) (test code = 1819) 48.0 GLUCOSE-STAT [id number] 14:01:01 Test Item Value Reference Range Interpretation Comments GLUCOSE RANDOM (BEAKER) (test code 174 mg/dL 70-110 H = 652) CALCIUM, [id number] 14:00:44 Test Item Value Reference Range Interpretation Comments CALCIUM IONIZED (BEAKER) (test 1.31 mmol/L 1.12-1.27 H code = 698) PH, BLOOD (BEAKER) (test code = 7.29 1810) POTASSIUM-STAT [id number] 14:00:32 Test Item Value Reference Range Interpretation Comments POTASSIUM (BEAKER) (test code = 3.7 meq/L 3.6-5.5 379) SODIUM NA-STAT [id number] 14:00:31 Test Item Value Reference Range Interpretation Comments SODIUM (BEAKER) (test code = 381) 138 meq/L 136-145 HGB/HCT (H&H) - STAT [id number] 13:28:00 Test Item Value Reference Range Interpretation Comments HEMOGLOBIN (BEAKER) (test code = 6.7 GM/DL 12.0-15.0 L 410) HEMATOCRIT (BEAKER) (test code = 20.0 % 36.0-45.0 L 411) CALCIUM, [id number] 13:27:59 Test Item Value Reference Range Interpretation Comments CALCIUM IONIZED (BEAKER) (test 1.06 mmol/L 1.12-1.27 L code = 698) PH, BLOOD (BEAKER) (test code = 7.30 1810) BLOOD GAS, [id number] 13:27:59 Test Item Value Reference Range Interpretation Comments PH ARTERIAL (BEAKER) (test code = 7.35 7.35-7.45 383) PCO2 ARTERIAL (BEAKER) (test code 41 mm Hg 35-45 = 384) PO2 ARTERIAL (BEAKER) (test code 367 mm Hg 80-90 H = 385) O2 SATURATION ARTERIAL (BEAKER) 99.8 % 96.0-97.0 H (test code = 386) HCO3 ARTERIAL (BEAKER) (test code 23 mmol/L 21-29 = 388) BASE EXCESS ARTERIAL (BEAKER) -2.8 mmol/L -2.0-3.0 L (test code = 387) PATIENT TEMPERATURE (BEAKER) 33.3 (test code = 1818) FIO2 (BEAKER) (test code = 1819) 48.0 GLUCOSE-STAT [id number] 13:27:59 Test Item Value Reference Range Interpretation Comments GLUCOSE RANDOM (BEAKER) (test code 183 mg/dL 70-110 H = 652) POTASSIUM-STAT [id number] 13:27:02 Test Item Value Reference Range Interpretation Comments POTASSIUM (BEAKER) (test code = 3.7 meq/L 3.6-5.5 379) SODIUM NA-STAT [id number] 13:27:01 Test Item Value Reference Range Interpretation Comments SODIUM (BEAKER) (test code = 381) 135 meq/L 136-145 L GLUCOSE-STAT [id number] 11:45:57 Test Item Value Reference Range Interpretation Comments GLUCOSE RANDOM (BEAKER) (test code 231 mg/dL 70-110 H = 652) HGB/HCT (H&H) - STAT [id number] 11:45:57 Test Item Value Reference Range Interpretation Comments HEMOGLOBIN (BEAKER) (test code = 9.4 GM/DL 12.0-15.0 L 410) HEMATOCRIT (BEAKER) (test code = 28.0 % 36.0-45.0 L 411) CALCIUM, [id number] 11:45:56 Test Item Value Reference Range Interpretation Comments CALCIUM IONIZED (BEAKER) (test 1.20 mmol/L 1.12-1.27 code = 698) PH, BLOOD (BEAKER) (test code = 7.32 1810) BLOOD GAS, [id number] 11:45:56 Test Item Value Reference Range Interpretation Comments PH ARTERIAL (BEAKER) (test code = 7.37 7.35-7.45 383) PCO2 ARTERIAL (BEAKER) (test code 41 mm Hg 35-45 = 384) PO2 ARTERIAL (BEAKER) (test code 185 mm Hg 80-90 H = 385) O2 SATURATION ARTERIAL (BEAKER) 99.3 % 96.0-97.0 H (test code = 386) HCO3 ARTERIAL (BEAKER) (test code 24 mmol/L 21-29 = 388) BASE EXCESS ARTERIAL (BEAKER) -2.2 mmol/L -2.0-3.0 L (test code = 387) PATIENT TEMPERATURE (BEAKER) 33.6 (test code = 1818) FIO2 (BEAKER) (test code = 1819) 42.0 SODIUM NA-STAT [id number] 11:45:33 Test Item Value Reference Range Interpretation Comments SODIUM (BEAKER) (test code = 381) 136 meq/L 136-145 POTASSIUM-STAT [id number] 11:45:33 Test Item Value Reference Range Interpretation Comments POTASSIUM (BEAKER) (test code = 3.8 meq/L 3.6-5.5 379) HGB/HCT (H&H) - STAT [id number] 10:39:52 Test Item Value Reference Range Interpretation Comments HEMOGLOBIN (BEAKER) (test code = 8.8 GM/DL 12.0-15.0 L 410) HEMATOCRIT (BEAKER) (test code = 26.0 % 36.0-45.0 L 411) BLOOD GAS, [id number] 10:39:51 Test Item Value Reference Range Interpretation Comments PH ARTERIAL (BEAKER) (test code = 7.35 7.35-7.45 383) PCO2 ARTERIAL (BEAKER) (test code 44 mm Hg 35-45 = 384) PO2 ARTERIAL (BEAKER) (test code 212 mm Hg 80-90 H = 385) O2 SATURATION ARTERIAL (BEAKER) 99.4 % 96.0-97.0 H (test code = 386) HCO3 ARTERIAL (BEAKER) (test code 24 mmol/L 21-29 = 388) BASE EXCESS ARTERIAL (BEAKER) -2.3 mmol/L -2.0-3.0 L (test code = 387) PATIENT TEMPERATURE (BEAKER) 34.3 (test code = 1818) FIO2 (BEAKER) (test code = 1819) 48.0 GLUCOSE-STAT [id number] 10:39:51 Test Item Value Reference Range Interpretation Comments GLUCOSE RANDOM (BEAKER) (test code 224 mg/dL 70-110 H = 652) CALCIUM, [id number] 10:39:29 Test Item Value Reference Range Interpretation Comments CALCIUM IONIZED (BEAKER) (test 1.22 mmol/L 1.12-1.27 code = 698) PH, BLOOD (BEAKER) (test code = 7.31 1810) POTASSIUM-STAT [id number] 10:39:13 Test Item Value Reference Range Interpretation Comments POTASSIUM (BEAKER) (test code = 4.2 meq/L 3.6-5.5 379) SODIUM NA-STAT [id number] 10:39:12 Test Item Value Reference Range Interpretation Comments SODIUM (BEAKER) (test code = 381) 136 meq/L 136-145 HGB/HCT (H&H) - STAT [id number] 09:21:43 Test Item Value Reference Range Interpretation Comments HEMOGLOBIN (BEAKER) (test code = 8.1 GM/DL 12.0-15.0 L 410) HEMATOCRIT (BEAKER) (test code = 24.0 % 36.0-45.0 L 411) POTASSIUM-STAT [id number] 09:21:42 Test Item Value Reference Range Interpretation Comments POTASSIUM (BEAKER) (test code = 3.0 meq/L 3.6-5.5 L 379) GLUCOSE-STAT [id number] 09:21:42 Test Item Value Reference Range Interpretation Comments GLUCOSE RANDOM (BEAKER) (test code 172 mg/dL 70-110 H = 652) BLOOD GAS, [id number] 09:21:41 Test Item Value Reference Range Interpretation Comments PH ARTERIAL (BEAKER) (test code = 7.38 7.35-7.45 383) PCO2 ARTERIAL (BEAKER) (test code 41 mm Hg 35-45 = 384) PO2 ARTERIAL (BEAKER) (test code 194 mm Hg 80-90 H = 385) O2 SATURATION ARTERIAL (BEAKER) 99.3 % 96.0-97.0 H (test code = 386) HCO3 ARTERIAL (BEAKER) (test code 24 mmol/L 21-29 = 388) BASE EXCESS ARTERIAL (BEAKER) -1.1 mmol/L -2.0-3.0 (test code = 387) PATIENT TEMPERATURE (BEAKER) 37.0 (test code = 1818) FIO2 (BEAKER) (test code = 1819) 21.0 CALCIUM, [id number] 09:21:41 Test Item Value Reference Range Interpretation Comments CALCIUM IONIZED (BEAKER) (test 1.08 mmol/L 1.12-1.27 L code = 698) PH, BLOOD (BEAKER) (test code = 7.38 1810) SODIUM NA-STAT [id number] 09:21:10 Test Item Value Reference Range Interpretation Comments SODIUM (BEAKER) (test code = 381) 137 meq/L 136-145 [id number] 07:30:21 Test Item Value Reference Range Interpretation Comments PHOSPHORUS (BEAKER) 3.9 mg/dL 2.3-4.7 Specimen slightly (test code = 604) hemolyzed Trimmer Operator ID - IRAM LCOMPREHENSIVE METABOLIC [id number] 07:30:21 Test Item Value Reference Range Interpretation Comments TOTAL PROTEIN 6.6 gm/dL 6.0-8.3 Specimen sligh tly (BEAKER) (test code = hemoly zed 770) ALBUMIN (BEAKER) 3.6 g/dL 3.5-5.0 Specimen sl ightly (test code = 1145) hemolyzed ALKALINE PHOSPHATASE 42 U/L 40-150 (BEAKER) (test code = 346) BILIRUBIN TOTAL 0.3 mg/dL 0.2-1.2 Specimen sli ghtly (BEAKER) (test code = hemoly zed 377) SODIUM (BEAKER) (test 140 meq/L 136-145 code = 381) POTASSIUM (BEAKER) 3.9 meq/L 3.5-5.1 Specimen slightly (test code = 379) hemolyzed CHLORIDE (BEAKER) 103 meq/L 98-107 (test code = 382) CO2 (BEAKER) (test 26 meq/L 22-29 code = 355) BLOOD UREA NITROGEN 15 mg/dL 7-21 (BEAKER) (test code = 354) CREATININE (BEAKER) 0.64 mg/dL 0.57-1.25 Specimen slightly (test code = 358) hemolyzed GLUCOSE RANDOM 134 mg/dL 70-105 H (BEAKER) (test code = 652) CALCIUM (BEAKER) 9.2 mg/dL 8.4-10.2 (test code = 697) AST (SGOT) (BEAKER) 21 U/L 5-34 Specimen slightly (test code = 353) hemolyzed ALT (SGPT) (BEAKER) 10 U/L 6-55 Specimen slightly (test code = 347) hemolyzed EGFR (BEAKER) (test 91 mL/min/1.73 ESTIMA MAGDA GFR IS code = 1092) sq m NOT ACCURATE CREATININE CLEARANCE IN PREDICTING GLOMERULAR FILTRATION RATE . ESTIMATED GFR I S NOT APPLICABLE FOR DIALYSIS PATIEN TS. Trimmer Operator ID - PIVALENTINO [id number] 07:30:20 Test Item Value Reference Range Interpretation Comments MAGNESIUM (BEAKER) 1.7 mg/dL 1.6-2.6 Specimen slightly (test code = 627) hemolyzed Trimmer Operator ID - IRAM L(CELLAVISION MANUAL DIFF)2022-03-07 07:12:17 Test Item Value Reference Range Interpretation Comments NEUTROPHILS - REL 44 % (CELLAVISION)(BEAKER) (test code = 2816) LYMPHOCYTES - REL 28 % (CELLAVISION)(BEAKER) (test code = 2817) MONOCYTES - REL 17 % (CELLAVISION)(BEAKER) (test code = 2818) EOSINOPHILS - REL 9 % (CELLAVISION)(BEAKER) (test code = 2819) BASOPHILS - REL 1 % (CELLAVISION)(BEAKER) (test code = 2820) NEUTROPHILS - ABS 2.16 K/ul 1.56-6.13 (CELLAVISION)(BEAKER) (test code = 2830) LYMPHOCYTES - ABS 1.37 K/ul 1.18-3.74 (CELLAVISION)(BEAKER) (test code = 2831) MONOCYTES - ABS 0.83 K/uL 0.24-0.36 H (CELLAVISION)(BEAKER) (test code = 2832) EOSINOPHILS - ABS 0.44 K/uL 0.04-0.36 H (CELLAVISION)(BEAKER) (test code = 2834) BASOPHILS - ABS 0.05 K/uL 0.01-0.08 (CELLAVISION)(BEAKER) (test code = 2835) TOTAL COUNTED (BEAKER) (test code = 100 1351) WBC MORPHOLOGY (BEAKER) (test code Normal = 487) GIANT PLATELETS (BEAKER) (test code Present = 313) POLYCHROMATOPHILLIC RBCS(BEAKER) 1+ few (test code = 478) ANISOCYTOSIS (BEAKER) (test code = 1+ few 961) MACROCYTES (BEAKER) (test code = 1+ few 964) POIKILOCYTES (BEAKER) (test code = 1+ few 966) SPHEROCYTES (BEAKER) (test code = 1+ few 768) ELLIPTOCYTES (BEAKER) (test code = 1+ few 962) ARTIFACT (CELLAVISION)(BEAKER) Present (test code = 3432) PLATELET CONCENTRATION Adequate (CELLAVISION)(BEAKER) (test code = 3438) Trimmer Operator ID - mykel Jain comments: Slide comments:CBC W/PLT COUNT & AUTO [id number] 07:12:16 Test Item Value Reference Range Interpretation Comments WHITE BLOOD CELL COUNT (BEAKER) 4.9 K/ L 3.5-10.5 (test code = 775) RED BLOOD CELL COUNT (BEAKER) 2.79 M/ L 3.93-5.22 L (test code = 761) HEMOGLOBIN (BEAKER) (test code = 9.1 GM/DL 11.2-15.7 L 410) HEMATOCRIT (BEAKER) (test code = 29.6 % 34.1-44.9 L 411) MEAN CORPUSCULAR VOLUME (BEAKER) 106.1 fL 79.4-94.8 H (test code = 753) MEAN CORPUSCULAR HEMOGLOBIN 32.6 pg 25.6-32.2 H (BEAKER) (test code = 751) MEAN CORPUSCULAR HEMOGLOBIN CONC 30.7 GM/DL 32.2-35.5 L (BEAKER) (test code = 752) RED CELL DISTRIBUTION WIDTH 18.4 % 11.7-14.4 H (BEAKER) (test code = 412) PLATELET COUNT (BEAKER) (test 253 K/CU MM 150-450 code = 756) MEAN PLATELET VOLUME (BEAKER) 10.1 fL 9.4-12.3 (test code = 754) NUCLEATED RED BLOOD CELLS 0 /100 WBC 0-0 (BEAKER) (test code = 413) POCT-GLUCOSE [id number] 06:09:44 Test Item Value Reference Range Interpretation Comments POC-GLUCOSE METER 134 mg/dL 70-110 H : TESTED A T [facility] 6720 (JEFF) (test code = [place], 1538) [address]: Trimmer Operator/Techni yordy ID = [id number] for Srinivas Mcbride SARS-COV2/RT-PCR ([facility])2022-03-06 03:15:49 Test Item Value Reference Range Interpretation Comments SARS-COV2/RT-PCR (test code = Negative Negative [id number]) Negative result for this test determines that SARS-CoV-2 RNA was not present in the specimen above the Limit of Detection (LOD). However, Negative results do not preclude SARS-CoV-2 infection and should not be used as the sole basis for treatment or patient management decisions. Negative results must be combined with clinical observations, patient history, and epidemiological information. A false negative result may occur if a specimen is improperly collected, transported, or handled. A false negative result should be considered if patient's recent exposures or clinical presentation indicate that COVID-19 (SARS-CoV-2) is likely and diagnostic tests for other causes of illness are negative. Re-testing should be considered in cases of suspected false negatives.The limit of detection for this assay is 100 copies/mL.This SARS-CoV-2 test is a real-time RT_PCR test intended for the qualitative detection of nucleic acid from SARS-CoV-2 in a nasopharyngeal swab specimen collected from individuals suspected of COVID-19 by their healthcare provider.This test has not been Food and Drug Administration (FDA) cleared or approved. This is a modified version of an approved Emergency Use Authorization (EUA) and is in the process of review by the FDA. Once authorized by the FDA, the issued EUA will be effective until the declaration that circumstances exist justifying the authorization of the emergency use of in vitro diagnostic tests for detection and/or diagnosis of COVID-19 is terminated under Section 564(b)(2) of the Act or the EUA is revoked under Section 564(g) of the Act.Testing was performed using [employer] SARS-CoV-2 assay.Fact Sheet for Healthcare Providers:https://www.[employer].moss/glo/RT SARS-CoV-2 HCP Fact Sheet 51- 420943.pdfFact Sheet for Healthcare Patients:https://www.[employer].moss/glo/RT SARS-CoV-2 Patient Fact Sheet EN 51-110584L3.pdfPOCT-GLUCOSE [id number] 08:11:12 Test Item Value Reference Range Interpretation Comments POC-GLUCOSE METER 120 mg/dL 70-110 H : TESTED A T [facility] 6720 (Incap) (test code = [place], 1538) [address]: Trimmer Operator/Techni yordy ID = [id number] for MARIUM ALVARADO RAD, CHEST, 1 VIEW, NON [id number] 08:01:00Reason for exam:->pleural effusions Should this be performed at the bedside?->Yes [facility] 1950 Sex: FFINAL REPORT TECHNIQUE: Frontal view of the chest. INDICATION: pleural effusions COMPARISON: 03/02/2022. FINDINGS: LINES/TUBES: Right IJ port catheter tip terminates at the cavoatrial junction.. LUNGS: Small right-sided pleural effusion with basilar atelectasis remains unchanged. HEARTAND MEDIASTINUM: The cardiomediastinal silhouette is within normal limits. SOFT TISSUES AND BONES: Un remarkable. IMPRESSION:No interval change.. Signed: Chyna Araujo Verified Date/Time: 03/03/2022 08:01:09 Reading Location: [facility] B1 C013Y CT Body Reading Room BASIC METABOLIC [id number] 05:18:34 Test Item Value Reference Range Interpretation Comments SODIUM (BEAKER) 140 meq/L 136-145 (test code = 381) POTASSIUM (BEAKER) 4.1 meq/L 3.5-5.1 (test code = 379) CHLORIDE (BEAKER) 103 meq/L 98-107 (test code = 382) CO2 (BEAKER) (test 29 meq/L 22-29 code = 355) BLOOD UREA NITROGEN 10 mg/dL 7-21 (BEAKER) (test code = 354) CREATININE (BEAKER) 0.55 mg/dL 0.57-1.25 L (test code = 358) GLUCOSE RANDOM 154 mg/dL 70-105 H (BEAKER) (test code = 652) CALCIUM (BEAKER) 9.0 mg/dL 8.4-10.2 (test code = 697) EGFR (BEAKER) (test 108 mL/min/1.73 ESTIM ATED GFR IS code = 1092) sq m NOT ACCURATE CREATININE CLEARANCE IN PREDICTING GLOMERULAR FILTRATION RATE . ESTIMATED GFR I S NOT APPLICABLE FOR DIALYSIS PATIEN TS. Trimmer Operator ID - KARLY [id number] 05:18:34 Test Item Value Reference Range Interpretation Comments MAGNESIUM (BEAKER) (test code = 1.7 mg/dL 1.6-2.6 627) Trimmer Operator ID - KARLY MCBC W/PLT COUNT & AUTO [id number] 04:44:09 Test Item Value Reference Range Interpretation Comments WHITE BLOOD CELL COUNT (BEAKER) 6.5 K/ L 3.5-10.5 (test code = 775) RED BLOOD CELL COUNT (BEAKER) 2.87 M/ L 3.93-5.22 L (test code = 761) HEMOGLOBIN (BEAKER) (test code = 9.3 GM/DL 11.2-15.7 L 410) HEMATOCRIT (BEAKER) (test code = 29.4 % 34.1-44.9 L 411) MEAN CORPUSCULAR VOLUME (BEAKER) 102.4 fL 79.4-94.8 H (test code = 753) MEAN CORPUSCULAR HEMOGLOBIN 32.4 pg 25.6-32.2 H (BEAKER) (test code = 751) MEAN CORPUSCULAR HEMOGLOBIN CONC 31.6 GM/DL 32.2-35.5 L (BEAKER) (test code = 752) RED CELL DISTRIBUTION WIDTH 19.8 % 11.7-14.4 H (BEAKER) (test code = 412) PLATELET COUNT (BEAKER) (test 176 K/CU MM 150-450 code = 756) MEAN PLATELET VOLUME (BEAKER) 9.7 fL 9.4-12.3 (test code = 754) NUCLEATED RED BLOOD CELLS 0 /100 WBC 0-0 (BEAKER) (test code = 413) NEUTROPHILS RELATIVE PERCENT 63 % (BEAKER) (test code = 429) LYMPHOCYTES RELATIVE PERCENT 15 % (BEAKER) (test code = 430) MONOCYTES RELATIVE PERCENT 16 % (BEAKER) (test code = 431) EOSINOPHILS RELATIVE PERCENT 5 % (BEAKER) (test code = 432) BASOPHILS RELATIVE PERCENT 0 % (BEAKER) (test code = 437) NEUTROPHILS ABSOLUTE COUNT 4.10 K/ L 1.56-6.13 (BEAKER) (test code = 670) LYMPHOCYTES ABSOLUTE COUNT 0.98 K/ L 1.18-3.74 L (BEAKER) (test code = 414) MONOCYTES ABSOLUTE COUNT (BEAKER) 1.00 K/ L 0.24-0.36 H (test code = 415) EOSINOPHILS ABSOLUTE COUNT 0.35 K/ L 0.04-0.36 (BEAKER) (test code = 416) BASOPHILS ABSOLUTE COUNT (BEAKER) 0.01 K/ L 0.01-0.08 (test code = 417) IMMATURE GRANULOCYTES-RELATIVE 1 % 0-1 PERCENT (BEAKER) (test code = 2801) SARS-COV2/RT-PCR ([facility])2022-03-03 00:06:22 Test Item Value Reference Range Interpretation Comments SARS-COV2/RT-PCR (test Negative Not Detected, Negative, code = 2432698) See external report for linked test SARS-COV-2 PERFORMING LAB [facility] SVITLANA (test code = 2543815) Negative result for this test determines that SARS-CoV-2 RNA was not present in the specimen above the Limit of Detection (LOD). However, Negative results do not preclude SARS-CoV-2 infection and should not be used as the sole basis for treatment or patient management decisions. Negative results must be combined with clinical observations, patient history, and epidemiological information. A false negative result may occur if a specimen is improperly collected, transported or handled. A false negative result should be considered if patient's recent exposures or clinical presentation indicate that COVID-19 (SARS-CoV-2) is likely and diagnostic tests for other causes of illness are negative. Re-testing should be considered in cases of suspected false negatives.The limit of detection for this assay is 800 copies/mL.This SARS CoV-2 test is a real-time RT-PCR test intended for the qualitative detection of nucleic acid from SARS-CoV-2 in a nasopharyngeal swab specimen collected from individuals suspected of COVID-19 by their healthcare provider.This test has not been Food and Drug Administration (FDA) cleared or approved. This is a modified version of an approved Emergency Use Authorization (EUA) and is in the process of review by the FDA. Once authorized by the FDA, the issued EUA will be effective until the declaration that circumstances exist justifying the authorization of the emergency use ofin vitro diagnostic tests for detection and/or diagnosis of COVID-19 is terminated under Section 564(b)(2) of the Act or the EUA is revoked under Section 564(g) of the Act.Fact Sheet for Healthcare Prov iders:https://www.[employer]/sites/default/files/product/documents/Fact_Sheet_HC _Rcnfwkwdz_Gtab_WGSU-PqN-0.pdfFact Sheet for Healthcare Patients:https://www.[employer]/sites/default/files/product/docume nts/Ljxv_Uipti_Ypgxwxme_Lcch_BWMU-PlX-4.pdfPerforming Laboratory:[facility], [place] [id number] METER 2022-03-02 22:14:48 Test Item Value Reference Range Interpretation Comments POC-GLUCOSE METER 174 mg/dL 70-110 H : TESTED A T [facility] 6720 (JEFF) (test code = DELMIS Acuna [facility], 1538) [address]: Trimmer Operator/Techni yordy ID = [id number] for Sir Matias Zapien POCT-GLUCOSE [id number] 16:26:34 Test Item Value Reference Range Interpretation Comments POC-GLUCOSE METER 179 mg/dL 70-110 H : TESTED A T [facility] 6720 (BEAKER) (test code = [place], 1538) [address]: Trimmer Operator/Techni yordy ID = [id number] for ALENA OROURKE Body fluid culture + gram [id number] 15:13:25 Test Item Value Reference Range Interpretation Comments Result (test code = 6463-4) No growth [facility] [id number] 15:13:25 Test Item Value Reference Range Interpretation Comments Result (test code = 6463-4) No growth [facility] + gram [id number] 15:13:25 Test Item Value Reference Range Interpretation Comments Result (test code = 6463-4) No growth [facility] + gram [id number] 15:13:25 Test Item Value Reference Range Interpretation Comments Result (test code = 6463-4) No growth [facility] + gram [id number] 15:13:25 Test Item Value Reference Range Interpretation Comments Result (test code = 6463-4) No growth [facility] + gram [id number] 15:13:25 Test Item Value Reference Range Interpretation Comments Result (test code = 6463-4) No growth [facility] + gram [id number] 15:13:25 Test Item Value Reference Range Interpretation Comments Result (test code = 6463-4) No growth [facility] gram [id number] 15:13:25 Test Item Value Reference Range Interpretation Comments Result (test code = 6463-4) [facility] [id number] 15:13:25 Test Item Value Reference Range Interpretation Comments Result (test code = 6463-4) No growth [facility] gram [id number] 15:13:25 Test Item Value Reference Range Interpretation Comments Result (test code = 6463-4) No growth [facility] gram [id number] 15:13:25 Test Item Value Reference Range Interpretation Comments Result (test code = 6463-4) No growth [facility] + GRAM [id number] 15:13:25 Test Item Value Reference Range Interpretation Comments CULTURE (BEAKER) (test code = 1095) No growth POCT-GLUCOSE [id number] 11:39:00 Test Item Value Reference Range Interpretation Comments POC-GLUCOSE METER 163 mg/dL 70-110 H : TESTED A T [facility] 6720 (BEAKER) (test code = DELMIS Kalpana [place], 1538) [address]: Trimmer Operator/Techni yordy ID = [id number] for BE RNABE ALENA ECHO W CONTRAST & [id number] 11:03:18Ejection FractionSLEH ECHO HEARTLAB MKCKESSON [facility] W CONTRAST & DOPPLER 2022-03-02 11:03:18Ejection FractionSLEH ECHO HEARTLAB MKCKESSON [facility] W CONTRAST & [id number] 11:03:18Ejection FractionSLEH ECHO HEARTLAB MKCKESSON [facility] W CONTRAST & [id number] 11:03:18Ejection FractionSLEH ECHO HEARTLAB MKCKESSON [facility] W CONTRAST & DOPPLER 2022-03-02 11:03:18Ejection FractionSLEH ECHO HEARTLAB MKCKESSON [facility] W CONTRAST & [id number] 11:03:18Ejection FractionSLEH ECHO HEARTLAB MKCKESSON [facility] W CONTRAST & [id number] 11:03:18Ejection FractionSLEH ECHO HEARTLAB MKCKESSON [facility] W CONTRAST & DOPPLER 2022-03-02 11:03:18Ejection FractionSLEH ECHO HEARTLAB MKCKESSON [facility] W CONTRAST & [id number] 11:03:18Ejection FractionSLEH ECHO HEARTLAB MKCKESSON [facility] W CONTRAST & [id number] 11:03:18Ejection FractionSLEH ECHO HEARTLAB MKCKESSON [facility] 2022-03-02 11:03:18Ejection FractionSLEH ECHO HEARTLAB MKCKESSON [facility]2022-[facility]-08 09:46:48Medical Cytology Report Case: [id number] Authorizing Provider: Ronaldo Owens, Collected: 02/27/2022 01:32 PM Ordering Location: [address] Received: 02/27/2022 03:04 PM Service Pathologist: Yara Barraza MD Specimen: Pleural, Right RIGHT PLEURAL FLUID (CYTOSPINS AND CELL BLOCK):- POSITIVE FOR MALIGNANCY Signing Pathologist Direct Phone Line: [phone] signed by Yara Barraza MD on 03/02/2022 at 9:46 AMThe cytospins and cell block show small 3-dimensional clusters of malignant cells.The cells have very large nuclei, with prominentnucleoli and abundant vacuolated cytoplasm. 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 Pleural, Right.Received 1100 ml yellow fluid with jelly; prepared 4 cytospins and cell block(A2)(collodion bag) - the cell block was fixed in formalin at 4:05 pm on 02/27/2022atisfactoryThe interpretation of this case included the use of immunohistochemistry or special stains.Control Slides Examined: In-house known positive controls were evaluated along with the test tissue. These control slides run alongside of the patients sample show appropriate staining. Internal positive and negative controls when available are evaluated Immunohistochemistry technical testing was performed at [facility], Pathology Laboratory where it was developed and its performance characteristics were determined. It has not been cleared or approved by the U.S. Food and Drug Administration. The FDA has determined that such clearance or approval is not necessary. The test is used for clinical purposes. It should not be regarded as investigational or for research. This laboratory is certified under the Clinical Laboratory Improvement Amendments of 1988 (CLIA-88) as qualified to perform high complexity clinical laboratory testing.[facility], Department of Pathology, [address] [place] [address], [facility]David [facility], [facility] of [facility], [address] [place] [address], [facility]David [facility], Department of Pathology, [address] [place] [address], HLMW-GLUCOSE [id number] 08:17:57 Test Item Value Reference Range Interpretation Comments POC-GLUCOSE METER 121 mg/dL 70-110 H : TESTED A T [facility] 6720 (JEFF) (test code = DELMIS Acuna [facility], 1538) [address]: Trimmer Operator/Techni yordy ID = [id number] for [facility] ALENA RAD, CHEST, 1 VIEW, NON [id number] 04:18:00Reason for exam:->pleural effusions Should this be performed at the bedside?->Yes [facility] : 1950 Sex: FFINAL REPORT CLINICAL INDICATION: pleural effusions Comparison: 02/27/2022 A single view of the chest is submitted. The cardiomediastinal contours are stable. A small right pleural effusion is similar to previous. Vague opacity in the right lower lung may reflect atelectasis. Pneumonitis should be excluded clinically. There is no pneumothorax. A right IJ chest port remains in place. Si gned: Mark Mckeon MDReport Verified Date/Time: 03/02/2022 04:18:45 MAGNESIUM 2022-03-02 04:08:57 Test Item Value Reference Range Interpretation Comments MAGNESIUM (BEAKER) (test code = 1.8 mg/dL 1.6-2.6 627) Trimmer Operator ID - DBBASIC METABOLIC [id number] 04:08:56 Test Item Value Reference Range Interpretation Comments SODIUM (BEAKER) 138 meq/L 136-145 (test code = 381) POTASSIUM (BEAKER) 3.7 meq/L 3.5-5.1 (test code = 379) CHLORIDE (BEAKER) 100 meq/L 98-107 (test code = 382) CO2 (BEAKER) (test 29 meq/L 22-29 code = 355) BLOOD UREA NITROGEN 10 mg/dL 7-21 (BEAKER) (test code = 354) CREATININE (BEAKER) 0.60 mg/dL 0.57-1.25 (test code = 358) GLUCOSE RANDOM 133 mg/dL 70-105 H (BEAKER) (test code = 652) CALCIUM (BEAKER) 8.9 mg/dL 8.4-10.2 (test code = 697) EGFR (BEAKER) (test 98 mL/min/1.73 ESTIMA MAGDA GFR IS code = 1092) sq m NOT ACCURATE CREATININE CLEARANCE IN PREDICTING GLOMERULAR FILTRATION RATE . ESTIMATED GFR I S NOT APPLICABLE FOR DIALYSIS PATIEN TS. Trimmer Operator ID - DBCBC W/PLT COUNT & AUTO [id number] 03:47:28 Test Item Value Reference Range Interpretation Comments WHITE BLOOD CELL COUNT (BEAKER) 7.1 K/ L 3.5-10.5 (test code = 775) RED BLOOD CELL COUNT (BEAKER) 2.90 M/ L 3.93-5.22 L (test code = 761) HEMOGLOBIN (BEAKER) (test code = 9.3 GM/DL 11.2-15.7 L 410) HEMATOCRIT (BEAKER) (test code = 29.9 % 34.1-44.9 L 411) MEAN CORPUSCULAR VOLUME (BEAKER) 103.1 fL 79.4-94.8 H (test code = 753) MEAN CORPUSCULAR HEMOGLOBIN 32.1 pg 25.6-32.2 (BEAKER) (test code = 751) MEAN CORPUSCULAR HEMOGLOBIN CONC 31.1 GM/DL 32.2-35.5 L (BEAKER) (test code = 752) RED CELL DISTRIBUTION WIDTH 19.9 % 11.7-14.4 H (BEAKER) (test code = 412) PLATELET COUNT (BEAKER) (test 187 K/CU MM 150-450 code = 756) MEAN PLATELET VOLUME (BEAKER) 9.6 fL 9.4-12.3 (test code = 754) NUCLEATED RED BLOOD CELLS 0 /100 WBC 0-0 (BEAKER) (test code = 413) NEUTROPHILS RELATIVE PERCENT 70 % (BEAKER) (test code = 429) LYMPHOCYTES RELATIVE PERCENT 14 % (BEAKER) (test code = 430) MONOCYTES RELATIVE PERCENT 12 % (BEAKER) (test code = 431) EOSINOPHILS RELATIVE PERCENT 3 % (BEAKER) (test code = 432) BASOPHILS RELATIVE PERCENT 0 % (BEAKER) (test code = 437) NEUTROPHILS ABSOLUTE COUNT 4.97 K/ L 1.56-6.13 (BEAKER) (test code = 670) LYMPHOCYTES ABSOLUTE COUNT 1.01 K/ L 1.18-3.74 L (BEAKER) (test code = 414) MONOCYTES ABSOLUTE COUNT (BEAKER) 0.88 K/ L 0.24-0.36 H (test code = 415) EOSINOPHILS ABSOLUTE COUNT 0.21 K/ L 0.04-0.36 (BEAKER) (test code = 416) BASOPHILS ABSOLUTE COUNT (BEAKER) 0.02 K/ L 0.01-0.08 (test code = 417) IMMATURE GRANULOCYTES-RELATIVE 0 % 0-1 PERCENT (BEAKER) (test code = 2801) POCT-GLUCOSE [id number] 22:02:11 Test Item Value Reference Range Interpretation Comments POC-GLUCOSE METER 176 mg/dL 70-110 H : TESTED A T [facility] 67 (BEAKER) (test code = [facility], 1538) [address]: Trimmer Operator/Techni yordy ID = [id number] for Zainab Syed POCT-GLUCOSE [id number] 18:31:33 Test Item Value Reference Range Interpretation Comments POC-GLUCOSE METER 139 mg/dL 70-110 H : TESTED A T [facility] 6720 (BEAKER) (test code = [facility], 1538) [address]: Trimmer Operator/Techni yordy ID = [id number] for PU GA, NAILA POC ACTIVATED CLOTTING [id number] 14:37:08 Test Item Value Reference Range Interpretation Comments Activated Clotting Time 196 sec : 74 -137 seconds, (test code = 3184-9) Baselin e: TESTED AT [address], [address]: Trimmer Operator/Techni yordy ID = [id number] for SE LLERS, [facility] ACTIVATED CLOTTING [id number] 14:37:08 Test Item Value Reference Range Interpretation Comments Activated Clotting Time 196 sec : 74 -137 seconds, (test code = 3184-9) Baselin e: TESTED AT [address], [address]: Trimmer Operator/Techni yordy ID = [id number] for SE LLERS, [facility] ACTIVATED CLOTTING [id number] 14:37:08 Test Item Value Reference Range Interpretation Comments Activated Clotting Time 196 sec : 74 -137 seconds, (test code = 3184-9) Baselin e: TESTED AT [address], [address]: Trimmer Operator/Techni yordy ID = [id number] for SE LLERS, [facility] ACTIVATED CLOTTING [id number] 14:37:08 Test Item Value Reference Range Interpretation Comments Activated Clotting Time 196 sec : 74 -137 seconds, (test code = 3184-9) Baselin e: TESTED AT [address], [address]: Trimmer Operator/Techni yordy ID = [id number] for SE LLERS, [facility] ACTIVATED CLOTTING [id number] 14:37:08 Test Item Value Reference Range Interpretation Comments Activated Clotting Time 196 sec : 74 -137 seconds, (test code = 3184-9) Baselin e: TESTED AT [address], [address]: Trimmer Operator/Techni yordy ID = [id number] for SE LLERS, [facility] ACTIVATED CLOTTING [id number] 14:37:08 Test Item Value Reference Range Interpretation Comments Activated Clotting Time 196 sec : 74 -137 seconds, (test code = 3184-9) Baselin e: TESTED AT [address], [address]: Trimmer Operator/Techni yordy ID = [id number] for SE LLERS, [facility] ACTIVATED CLOTTING [id number] 14:37:08 Test Item Value Reference Range Interpretation Comments Activated Clotting Time 196 sec : 74 -137 seconds, (test code = 3184-9) Baselin e: TESTED AT [address], [address]: Trimmer Operator/Techni yordy ID = [id number] for SE LLERS, [facility] ACTIVATED CLOTTING [id number] 14:37:08 Test Item Value Reference Range Interpretation Comments Activated Clotting Time 196 sec : 74 -137 seconds, (test code = 3184-9) Baselin e: TESTED AT [address], [address]: Trimmer Operator/Techni yordy ID = [id number] for SE LLERS, [facility] ACTIVATED CLOTTING [id number] 14:37:08 Test Item Value Reference Range Interpretation Comments Activated Clotting Time 196 sec : 74 -137 seconds, (test code = 3184-9) Baselin e: TESTED AT [address], [address]: Trimmer Operator/Techni yordy ID = [id number] for SE LLERS, [facility] ACTIVATED CLOTTING [id number] 14:37:08 Test Item Value Reference Range Interpretation Comments Activated Clotting Time 196 sec : 74 -137 seconds, (test code = 3184-9) Baselin e: TESTED AT [address], [address]: Trimmer Operator/Techni yordy ID = [id number] for SE LLERS, [facility] ACTIVATED CLOTTING [id number] 14:37:08 Test Item Value Reference Range Interpretation Comments Activated Clotting Time 196 sec : 74 -137 seconds, (test code = 3184-9) Soto e: TESTED AT [facility] [address] [facility] [place], [address]: Trimmer Operator/Techni yordy ID = [id number] [id number] 14:37:08 Test Item Value Reference Range Interpretation Comments ACTIVATED CLOTTING TIME 196 sec : 74 -137 seconds, (BEAKER) (test code = Baseli ne: TESTED AT 441) [facility] [address] [facility] [place], [address]: Trimmer Operator/Techni yordy ID = [id number] for JOSE VEGA CBC W/PLT COUNT & AUTO [id number] 05:40:53 Test Item Value Reference Range Interpretation Comments WHITE BLOOD CELL COUNT (BEAKER) 5.6 K/ L 3.5-10.5 (test code = 775) RED BLOOD CELL COUNT (BEAKER) 3.06 M/ L 3.93-5.22 L (test code = 761) HEMOGLOBIN (BEAKER) (test code = 10.0 GM/DL 11.2-15.7 L 410) HEMATOCRIT (BEAKER) (test code = 31.9 % 34.1-44.9 L 411) MEAN CORPUSCULAR VOLUME (BEAKER) 104.2 fL 79.4-94.8 H (test code = 753) MEAN CORPUSCULAR HEMOGLOBIN 32.7 pg 25.6-32.2 H (BEAKER) (test code = 751) MEAN CORPUSCULAR HEMOGLOBIN CONC 31.3 GM/DL 32.2-35.5 L (BEAKER) (test code = 752) RED CELL DISTRIBUTION WIDTH 20.2 % 11.7-14.4 H (BEAKER) (test code = 412) PLATELET COUNT (BEAKER) (test 215 K/CU MM 150-450 code = 756) MEAN PLATELET VOLUME (BEAKER) 10.0 fL 9.4-12.3 (test code = 754) NUCLEATED RED BLOOD CELLS 0 /100 WBC 0-0 (BEAKER) (test code = 413) NEUTROPHILS RELATIVE PERCENT 63 % (BEAKER) (test code = 429) LYMPHOCYTES RELATIVE PERCENT 20 % (BEAKER) (test code = 430) MONOCYTES RELATIVE PERCENT 13 % (BEAKER) (test code = 431) EOSINOPHILS RELATIVE PERCENT 4 % (BEAKER) (test code = 432) BASOPHILS RELATIVE PERCENT 1 % (BEAKER) (test code = 437) NEUTROPHILS ABSOLUTE COUNT 3.53 K/ L 1.56-6.13 (BEAKER) (test code = 670) LYMPHOCYTES ABSOLUTE COUNT 1.11 K/ L 1.18-3.74 L (BEAKER) (test code = 414) MONOCYTES ABSOLUTE COUNT (BEAKER) 0.74 K/ L 0.24-0.36 H (test code = 415) EOSINOPHILS ABSOLUTE COUNT 0.21 K/ L 0.04-0.36 (BEAKER) (test code = 416) BASOPHILS ABSOLUTE COUNT (BEAKER) 0.03 K/ L 0.01-0.08 (test code = 417) IMMATURE GRANULOCYTES-RELATIVE 0 % 0-1 PERCENT (BEAKER) (test code = 2801) COMPREHENSIVE METABOLIC [id number] 05:35:01 Test Item Value Reference Range Interpretation Comments TOTAL PROTEIN 5.9 gm/dL 6.0-8.3 L (BEAKER) (test code = 770) ALBUMIN (BEAKER) 3.5 g/dL 3.5-5.0 (test code = 1145) ALKALINE PHOSPHATASE 41 U/L 40-150 (BEAKER) (test code = 346) BILIRUBIN TOTAL 0.4 mg/dL 0.2-1.2 (BEAKER) (test code = 377) SODIUM (BEAKER) (test 139 meq/L 136-145 code = 381) POTASSIUM (BEAKER) 3.6 meq/L 3.5-5.1 (test code = 379) CHLORIDE (BEAKER) 98 meq/L 98-107 (test code = 382) CO2 (BEAKER) (test 32 meq/L 22-29 H code = 355) BLOOD UREA NITROGEN 13 mg/dL 7-21 (BEAKER) (test code = 354) CREATININE (BEAKER) 0.62 mg/dL 0.57-1.25 (test code = 358) GLUCOSE RANDOM 138 mg/dL 70-105 H (BEAKER) (test code = 652) CALCIUM (BEAKER) 9.2 mg/dL 8.4-10.2 (test code = 697) AST (SGOT) (BEAKER) 16 U/L 5-34 (test code = 353) ALT (SGPT) (BEAKER) 8 U/L 6-55 (test code = 347) EGFR (BEAKER) (test 94 mL/min/1.73 ESTIMA MAGDA GFR IS code = 1092) sq m NOT ACCURATE CREATININE CLEARANCE IN PREDICTING GLOMERULAR FILTRATION RATE . ESTIMATED GFR I S NOT APPLICABLE FOR DIALYSIS PATIEN TS. Trimmer Operator ID - IRAM [id number] 05:35:01 Test Item Value Reference Range Interpretation Comments MAGNESIUM (BEAKER) (test code = 1.5 mg/dL 1.6-2.6 L 627) Trimmer Operator ID - JUHIVALENTINO [id number] 05:35:01 Test Item Value Reference Range Interpretation Comments PHOSPHORUS (BEAKER) (test code = 3.9 mg/dL 2.3-4.7 604) Trimmer Operator ID - IRAM LPOCT-GLUCOSE [id number] 21:03:33 Test Item Value Reference Range Interpretation Comments POC-GLUCOSE METER 177 mg/dL 70-110 H : TESTED A T [facility] 67[address] (BEAKER) (test code = DELMIS MAYNARD ID, [id number]) [address]: Trimmer Operator/Techni yordy ID = [id number] for WALLACE REGALADO U/S, [id number] 15:00:00Laterality?->RightReason for exam:- >right pleural effusionLabs to be Ordered:->Cell CountLabs to be Ordered:- >CytologyLabs to be Ordered:->Body Fluid Culture (w/Gram Stain, C\\T\\S) [facility] : 1950 Sex: FFINAL REPORT Exam: Ultrasound guided thoracentesis Clinical History: Right-sided Pleural Effusion Chef: Jackie Villalta PA-C Supervising Physician: Manuel Post MD Consent: Benefits and risks were explained to the patient who gave consent to the procedure. Complication:None Immediate Procedure: The patient was placed in sitting position. The right posterior chest was prepped and draped in usual sterile fashion. 2% lidocaine was used as local anesthetic. Under ultrasound guidance, a thoracentesis catheter was inserted into the pleural cavity. Approximately 1000 cc ofclear yellow pleural fluid was aspirated. The catheter was removed. The specimen was sent to the laboratory for further analysis. The patient tolerated the procedure well without any adverse reaction. A STAT chest x-ray was ordered. The patient left the department in stable condition. Impression: Ultrasound guided right-sided thoracentesis. Signed: Manuel Post MDReport Verified Date/Time: 02/28/2022 15:00:07 Reading Location: [address] Ultrasound Reading Room VITAMIN B12 AND [id number] 05:29:54 Test Item Value Reference Range Interpretation Comments VITAMIN B12 614 pg/mL 213-816 (BEAKER) (test code = 774) FOLATE (BEAKER) 16.10 ng/mL See_Comment [Automated message] (test code = 362) The system which generated this result transmitted ref erence range: >=7.00. The reference range was not used to interpr et this result as normal/abnormal . Trimmer Operator ID - PIAYA [id number] 05:10:42 Test Item Value Reference Range Interpretation Comments PHOSPHORUS (BEAKER) (test code = 3.2 mg/dL 2.3-4.7 604) Trimmer Operator ID - BSCOMPREHENSIVE METABOLIC [id number] 05:10:41 Test Item Value Reference Range Interpretation Comments TOTAL PROTEIN 5.9 gm/dL 6.0-8.3 L (BEAKER) (test code = 770) ALBUMIN (BEAKER) 3.6 g/dL 3.5-5.0 (test code = 1145) ALKALINE PHOSPHATASE 45 U/L 40-150 (BEAKER) (test code = 346) BILIRUBIN TOTAL 0.3 mg/dL 0.2-1.2 (BEAKER) (test code = 377) SODIUM (BEAKER) (test 139 meq/L 136-145 code = 381) POTASSIUM (BEAKER) 4.1 meq/L 3.5-5.1 (test code = 379) CHLORIDE (BEAKER) 98 meq/L 98-107 (test code = 382) CO2 (BEAKER) (test 32 meq/L 22-29 H code = 355) BLOOD UREA NITROGEN 11 mg/dL 7-21 (BEAKER) (test code = 354) CREATININE (BEAKER) 0.68 mg/dL 0.57-1.25 (test code = 358) GLUCOSE RANDOM 114 mg/dL 70-105 H (BEAKER) (test code = 652) CALCIUM (BEAKER) 9.1 mg/dL 8.4-10.2 (test code = 697) AST (SGOT) (BEAKER) 14 U/L 5-34 (test code = 353) ALT (SGPT) (BEAKER) 7 U/L 6-55 (test code = 347) EGFR (BEAKER) (test 85 mL/min/1.73 ESTIMA MAGDA GFR IS code = 1092) sq m NOT ACCURATE CREATININE CLEARANCE IN PREDICTING GLOMERULAR FILTRATION RATE . ESTIMATED GFR I S NOT APPLICABLE FOR DIALYSIS PATIEN TS. Trimmer Operator ID - [id number] 05:10:41 Test Item Value Reference Range Interpretation Comments MAGNESIUM (BEAKER) (test code = 1.6 mg/dL 1.6-2.6 627) Trimmer Operator ID - BSCBC W/PLT COUNT & AUTO [id number] 04:55:49 Test Item Value Reference Range Interpretation Comments WHITE BLOOD CELL COUNT 6.1 K/ L 3.5-10.5 (BEAKER) (test code = 775) RED BLOOD CELL COUNT 3.05 M/ L 3.93-5.22 L (BEAKER) (test code = 761) HEMOGLOBIN (BEAKER) 10.0 GM/DL 11.2-15.7 L (test code = 410) HEMATOCRIT (BEAKER) 31.2 % 34.1-44.9 L (test code = 411) MEAN CORPUSCULAR 102.3 fL 79.4-94.8 H Discordant result VOLUME (BEAKER) (test compar ed to previous code = 753) result. Clinica l correlation req uired MEAN CORPUSCULAR 32.8 pg 25.6-32.2 H HEMOGLOBIN (BEAKER) (test code = 751) MEAN CORPUSCULAR 32.1 GM/DL 32.2-35.5 L HEMOGLOBIN CONC (BEAKER) (test code = 752) RED CELL DISTRIBUTION 20.5 % 11.7-14.4 H WIDTH (BEAKER) (test code = 412) PLATELET COUNT 215 K/CU MM 150-450 (BEAKER) (test code = 756) MEAN PLATELET VOLUME 9.6 fL 9.4-12.3 (BEAKER) (test code = 754) NUCLEATED RED BLOOD 0 /100 WBC 0-0 CELLS (BEAKER) (test code = 413) NEUTROPHILS RELATIVE 65 % PERCENT (BEAKER) (test code = 429) LYMPHOCYTES RELATIVE 19 % PERCENT (BEAKER) (test code = 430) MONOCYTES RELATIVE 13 % PERCENT (BEAKER) (test code = 431) EOSINOPHILS RELATIVE 3 % PERCENT (BEAKER) (test code = 432) BASOPHILS RELATIVE 0 % PERCENT (BEAKER) (test code = 437) NEUTROPHILS ABSOLUTE 3.96 K/ L 1.56-6.13 COUNT (BEAKER) (test code = 670) LYMPHOCYTES ABSOLUTE 1.14 K/ L 1.18-3.74 L COUNT (BEAKER) (test code = 414) MONOCYTES ABSOLUTE 0.80 K/ L 0.24-0.36 H COUNT (BEAKER) (test code = 415) EOSINOPHILS ABSOLUTE 0.16 K/ L 0.04-0.36 COUNT (BEAKER) (test code = 416) BASOPHILS ABSOLUTE 0.02 K/ L 0.01-0.08 COUNT (BEAKER) (test code = 417) IMMATURE 0 % 0-1 GRANULOCYTES-RELATIVE PERCENT (BEAKER) (test code = 2801) Body fluid cell count with [id number] 18:12:04 Test Item Value Reference Range Interpretation Comments Appearance (test code = Clear Clear 9335-1) Color (test code = Yellow Colorless, Straw A 6824-7) RBCs (test code = 112 See_Comment H [Automate d message] 69074-8) The system [employer] generated this result transmit magda reference range : <=1 /cu mm. The reference range was not used to interpret this result as normal/abnormal . Adjusted WBC Count 178 See_Comment H [Automat ed message] (test code = 75134-9) The sy stem which generated this result transmit magda reference range : <=5 /cu mm. The reference range was not used to interpret this result as normal/abnormal . Adjusted lining 4 See_Comment H [Automated message] cells/Others (test code The system which = 32909-4) generated this result transmit magda reference range : <=1 /cu mm. The reference range was not used to interpret this result as normal/abnormal . % Segs (test code = 9 % 36828-1) % Lymphs (test code = 33 % 82679-3) % Monos (test code = 58 % 76031-8) % Eos (test code = 0 % 96882-5) % Baso (test code = 0 % 77382-9) Container Body Fluid EDTA Tube (test code = 2873) Lab Interpretation Abnormal (test code = 62743-4) [facility] yuxkfwrgwsnt4987-50-13 18:12:04 Test Item Value Reference Range Interpretation Comments Appearance (test code = Clear Clear 9335-1) Color (test code = Yellow Colorless, Straw A 6824-7) RBCs (test code = 112 See_Comment H [Automate d message] 20726-4) The system [employer] generated this result transmit magda reference range : <=1 /cu mm. The reference range was not used to interpret this result as normal/abnormal . Adjusted WBC Count 178 See_Comment H [Automat ed message] (test code = 00155-7) The sy stem which generated this result transmit magda reference range : <=5 /cu mm. The reference range was not used to interpret this result as normal/abnormal . Lining Cells (test code 4 See_Comment H [Au tomated message] = 92842-6) The system [employer] generated this result transmit magda reference range : <=1 /cu mm. The reference range was not used to interpret this result as normal/abnormal . % Segs (test code = 9 % 61553-0) % Lymphs (test code = 33 % 02878-0) % Monos (test code = 58 % 05744-7) % Eos (test code = 0 % 26750-2) % Baso (test code = 0 % 91633-1) Container Body Fluid EDTA Tube (test code = 2873) Lab Interpretation Abnormal (test code = 01550-5) [facility] with majxmegnphvi4355-53-77 18:12:04 Test Item Value Reference Range Interpretation Comments Appearance (test code = Clear Clear 9335-1) Color (test code = Yellow Colorless, Straw A 6824-7) RBCs (test code = 112 See_Comment H [Automate d message] 22948-4) The system [employer] generated this result transmit magda reference range : <=1 /cu mm. The reference range was not used to interpret this result as normal/abnormal . Adjusted WBC Count 178 See_Comment H [Automat ed message] (test code = 62516-3) The sy stem which generated this result transmit magda reference range : <=5 /cu mm. The reference range was not used to interpret this result as normal/abnormal . Lining Cells (test code 4 See_Comment H [Au tomated message] = 32046-9) The system [employer] generated this result transmit magda reference range : <=1 /cu mm. The reference range was not used to interpret this result as normal/abnormal . % Segs (test code = 9 % 63009-4) % Lymphs (test code = 33 % 69086-4) % Monos (test code = 58 % 94876-7) % Eos (test code = 0 % 77758-5) % Baso (test code = 0 % 76119-3) Container Body Fluid EDTA Tube (test code = 2873) Lab Interpretation Abnormal (test code = 68218-5) [facility] with rehbpzdprygy6607-23-41 18:12:04 Test Item Value Reference Range Interpretation Comments Appearance (test code = Clear Clear 9335-1) Color (test code = Yellow Colorless, Straw A 6824-7) RBCs (test code = 112 See_Comment H [Automate d message] 42055-9) The system [employer] generated this result transmit magda reference range : <=1 /cu mm. The reference range was not used to interpret this result as normal/abnormal . Adjusted WBC Count 178 See_Comment H [Automat ed message] (test code = 70417-3) The sy stem which generated this result transmit magda reference range : <=5 /cu mm. The reference range was not used to interpret this result as normal/abnormal . Adjusted lining 4 See_Comment H [Automated message] cells/Others (test code The system which = 38508-8) generated this result transmit magda reference range : <=1 /cu mm. The reference range was not used to interpret this result as normal/abnormal . % Segs (test code = 9 % 08186-1) % Lymphs (test code = 33 % 42898-9) % Monos (test code = 58 % 94804-1) % Eos (test code = 0 % 21625-5) % Baso (test code = 0 % 85322-4) Container Body Fluid EDTA Tube (test code = 2873) Lab Interpretation Abnormal (test code = 24506-0) [facility] with eibmjefjlrxy2652-27-33 18:12:04 Test Item Value Reference Range Interpretation Comments Appearance (test code = Clear Clear 9335-1) Color (test code = Yellow Colorless, Straw A 6824-7) RBCs (test code = 112 See_Comment H [Automate d message] 10527-5) The system whic h generated this result transmit magda reference range : <=1 /cu mm. The reference range was not used to interpret this result as normal/abnormal . Adjusted WBC Count 178 See_Comment H [Automat ed message] (test code = 07477-0) The sy stem which generated this result transmit magda reference range : <=5 /cu mm. The reference range was not used to interpret this result as normal/abnormal . Adjusted lining 4 See_Comment H [Automated message] cells/Others (test code The system which = 53413-7) generated this result transmit magda reference range : <=1 /cu mm. The reference range was not used to interpret this result as normal/abnormal . % Segs (test code = 9 % 23719-4) % Lymphs (test code = 33 % 50402-6) % Monos (test code = 58 % 28069-4) % Eos (test code = 0 % 05545-9) % Baso (test code = 0 % 10201-2) Container Body Fluid EDTA Tube (test code = 2873) Lab Interpretation Abnormal (test code = 83337-3) [facility] with hagwzslwiyaw6016-06-18 18:12:04 Test Item Value Reference Range Interpretation Comments Appearance (test code = Clear Clear 9335-1) Color (test code = Yellow Colorless, Straw A 6824-7) RBCs (test code = 112 See_Comment H [Automate d message] 47714-5) The system [employer] generated this result transmit magda reference range : <=1 /cu mm. The reference range was not used to interpret this result as normal/abnormal . Adjusted WBC Count 178 See_Comment H [Automat ed message] (test code = 98913-0) The sy stem which generated this result transmit magda reference range : <=5 /cu mm. The reference range was not used to interpret this result as normal/abnormal . Adjusted lining 4 See_Comment H [Automated message] cells/Others (test code The system which = 34116-2) generated this result transmit magda reference range : <=1 /cu mm. The reference range was not used to interpret this result as normal/abnormal . % Segs (test code = 9 % 19590-9) % Lymphs (test code = 33 % 76756-6) % Monos (test code = 58 % 53804-5) % Eos (test code = 0 % 86000-0) % Baso (test code = 0 % 08130-8) Container Body Fluid EDTA Tube (test code = 2873) Lab Interpretation Abnormal (test code = 47841-0) [facility] with pwkamjkotvkl1970-59-16 18:12:04 Test Item Value Reference Range Interpretation Comments Appearance (test code = Clear Clear 9335-1) Color (test code = Yellow Colorless, Straw A 6824-7) RBCs (test code = 112 See_Comment H [Automate d message] 38804-7) The system [employer] generated this result transmit magda reference range : <=1 /cu mm. The reference range was not used to interpret this result as normal/abnormal . Adjusted WBC Count 178 See_Comment H [Automat ed message] (test code = 32988-7) The sy stem which generated this result transmit magda reference range : <=5 /cu mm. The reference range was not used to interpret this result as normal/abnormal . Adjusted lining 4 See_Comment H [Automated message] cells/Others (test code The system which = 37887-4) generated this result transmit magda reference range : <=1 /cu mm. The reference range was not used to interpret this result as normal/abnormal . % Segs (test code = 9 % 25253-2) % Lymphs (test code = 33 % 01569-0) % Monos (test code = 58 % 87274-2) % Eos (test code = 0 % 22122-7) % Baso (test code = 0 % 05086-7) Container Body Fluid EDTA Tube (test code = 2873) Lab Interpretation Abnormal (test code = 80135-8) [facility] with rymcklpeuacy9311-84-98 18:12:04 Test Item Value Reference Range Interpretation Comments Appearance (test code = Clear Clear 9335-1) Color (test code = Yellow Colorless, Straw A 6824-7) RBCs (test code = 112 See_Comment H [Automate d message] 94685-1) The system [employer] generated this result transmit magda reference range : <=1 /cu mm. The reference range was not used to interpret this result as normal/abnormal . Adjusted WBC Count 178 See_Comment H [Automat ed message] (test code = 30167-5) The sy stem which generated this result transmit magda reference range : <=5 /cu mm. The reference range was not used to interpret this result as normal/abnormal . Lining Cells (test code 4 See_Comment H [Au tomated message] = 37982-7) The system [employer] generated this result transmit magda reference range : <=1 /cu mm. The reference range was not used to interpret this result as normal/abnormal . % Segs (test code = 9 % 51856-5) % Lymphs (test code = 33 % 37335-3) % Monos (test code = 58 % 45512-7) % Eos (test code = 0 % 28564-1) % Baso (test code = 0 % 19121-2) Container Body Fluid EDTA Tube (test code = 2873) Lab Interpretation Abnormal (test code = 73321-8) [facility] with nakxlyubnfif8833-65-79 18:12:04 Test Item Value Reference Range Interpretation Comments Appearance (test code = Clear Clear 9335-1) Color (test code = Yellow Colorless, Straw A 6824-7) RBCs (test code = 112 See_Comment H [Automate d message] 35361-0) The system [employer] generated this result transmit magda reference range : <=1 /cu mm. The reference range was not used to interpret this result as normal/abnormal . Adjusted WBC Count 178 See_Comment H [Automat ed message] (test code = 73918-8) The sy stem which generated this result transmit magda reference range : <=5 /cu mm. The reference range was not used to interpret this result as normal/abnormal . Lining Cells (test code 4 See_Comment H [Au tomated message] = 10769-4) The system [employer] generated this result transmit magda reference range : <=1 /cu mm. The reference range was not used to interpret this result as normal/abnormal . % Segs (test code = 9 % 96722-4) % Lymphs (test code = 33 % 37249-9) % Monos (test code = 58 % 82489-1) % Eos (test code = 0 % 06466-6) % Baso (test code = 0 % 48491-5) Container Body Fluid EDTA Tube (test code = 2873) Lab Interpretation Abnormal (test code = 84267-5) [facility] with tuhverbwncyg9833-39-59 18:12:04 Test Item Value Reference Range Interpretation Comments Appearance (test code = Clear Clear 9335-1) Color (test code = Yellow Colorless, Straw A 6824-7) RBCs (test code = 112 See_Comment H [Automate d message] 49831-0) The system [employer] generated this result transmit magda reference range : <=1 /cu mm. The reference range was not used to interpret this result as normal/abnormal . Adjusted WBC Count 178 See_Comment H [Automat ed message] (test code = 60222-1) The sy stem which generated this result transmit magda reference range : <=5 /cu mm. The reference range was not used to interpret this result as normal/abnormal . Lining Cells (test code 4 See_Comment H [Au tomated message] = 70022-0) The system [employer] generated this result transmit magda reference range : <=1 /cu mm. The reference range was not used to interpret this result as normal/abnormal . % Segs (test code = 9 % 23105-2) % Lymphs (test code = 33 % 76007-2) % Monos (test code = 58 % 37993-7) % Eos (test code = 0 % 44466-9) % Baso (test code = 0 % 63193-2) Container Body Fluid EDTA Tube (test code = 2873) Lab Interpretation Abnormal (test code = 80454-9) [facility] with aeykvjyhgnfj6040-02-66 18:12:04 Test Item Value Reference Range Interpretation Comments Appearance (test code = Clear Clear 9335-1) Color (test code = Yellow Colorless, Straw A 6824-7) RBCs (test code = 112 See_Comment H [Automate d message] 60831-2) The system [employer] generated this result transmit magda reference range : <=1 /cu mm. The reference range was not used to interpret this result as normal/abnormal . Adjusted WBC Count 178 See_Comment H [Automat ed message] (test code = 97466-2) The sy stem which generated this result transmit magda reference range : <=5 /cu mm. The reference range was not used to interpret this result as normal/abnormal . Lining Cells (test code 4 See_Comment H [Au tomated message] = 56929-2) The system [employer] generated this result transmit magda reference range : <=1 /cu mm. The reference range was not used to interpret this result as normal/abnormal . % Segs (test code = 9 % 89995-4) % Lymphs (test code = 33 % 57688-7) % Monos (test code = 58 % 79337-2) % Eos (test code = 0 % 51550-7) % Baso (test code = 0 % 76423-4) Container Body Fluid EDTA Tube (test code = 2873) Lab Interpretation Abnormal (test code = 85244-1) [facility] WITH [id number] 18:12:04 Test Item Value Reference Range Interpretation Comments APPEARANCE FLUID Clear Clear (BEAKER) (test code = 510) COLOR FLUID (BEAKER) Yellow Colorless, Straw A (test code = 511) RBC FLUID (BEAKER) 112 /cu mm See_Comment H [Automat ed message] (test code = 513) The system which generated this result transmitted ref erence range: <=1. The reference range was not used to int erpret this result as normal/abnormal . ADJUSTED WBC FLUID 178 /cu mm See_Comment H [Automat ed message] (BEAKER) (test code = The sy stem which 4012) generated this result transmitted ref erence range: <=5. The reference range was not used to int erpret this result as normal/abnormal . LINING CELLS (BEAKER) 4 /cu mm See_Comment H [Auto mated message] (test code = 1590) The syste m which generated this result transmitted ref erence range: <=1. The reference range was not used to int erpret this result as normal/abnormal . NEUTROPHILS FLUID 9 % (BEAKER) (test code = 1656) LYMPHS FLUID (BEAKER) 33 % (test code = 488) MONO/MACROPHAGE FLUID 58 % (BEAKER) (test code = 489) EOSINOPHILS FLUID 0 % (BEAKER) (test code = 491) BASO FLUID (BEAKER) 0 % (test code = 492) CONTAINER BODY FLUID EDTA Tube (BEAKER) (test code = 2873) RAD, CHEST, 1 VIEW, NON [id number] 14:32:00Reason for exam:->post right sided thoracentesisShould this be performed at the bedside?->Yes [facility] : 1950 Sex: FFINAL REPORT CLINICAL HISTORY: post right sided thoracentesis TECHNIQUE: 1 view ofthe chest. COMPARISON: 02/26/2022 IMPRESSION: No pneumothorax. The small right pleural effusion is decreased. The left lung remains well-aerated. The cardiomediastinal silhouette is magnified by technique. Right chest wall port unchanged. Signed: Gilbert Jackson MDReport Verified Date/Time: 02/27/2022 14:3 2:50 Reading Location: [facility] Radiology Reading Room POCT-GLUCOSE METER 2022-02-27 08:13:53 Test Item Value Reference Range Interpretation Comments POC-GLUCOSE METER 98 mg/dL 70-110 : TESTED A T [facility] 6720 (BEAKER) (test code = DELMIS Acuna [facility], 1538) [address]: Trimmer Operator/Techni yordy ID = [id number] for Abby Sharpe Venous doppler legs utkdnkgwg2080-28-00 07:37:23Ejection FractionSLEH ECHO HEARTLAB MKCKESSON [facility] bilateral 2022-02-27 07:37:23Ejection FractionSLEH ECHO HEARTLAB MKCKESSON [facility] do[facility] legs sfkwtxpem2838-02-03 07:37:23Ejection FractionSLEH ECHO HEARTLAB MKCKESSON [facility] do[facility] legs [id number] 07:37:23Ejection FractionSLEH ECHO HEARTLAB MKCKESSON [facility] legs bilateral 2022-02-27 07:37:23Ejection FractionSLEH ECHO HEARTLAB MKCKESSON [facility] do[facility] legs [id number] 07:37:23Ejection FractionSLEH ECHO HEARTLAB MKCKESSON [facility] do[facility] legs ukdzryvfh9702-72-91 07:37:23Ejection FractionSLEH ECHO HEARTLAB MKCKESSON [facility] legs bilateral 2022-02-27 07:37:23Ejection FractionSLEH ECHO HEARTLAB MKCKESSON [facility] doppler legs jjbsvhwuz2116-01-94 07:37:23Ejection FractionSLEH ECHO HEARTLAB MKCKESSON [facility] xyipbeiay5493-80-55 07:37:23Ejection FractionSLEH ECHO HEARTLAB MKCKESSON [facility] do[facility] legs bilateral 2022-02-27 07:37:23Ejection FractionSLEH ECHO HEARTLAB MKCKESSON [facility] StanfordMAGNESIUM2022-04-05 06:58:40 Test Item Value Reference Range Interpretation Comments MAGNESIUM (BEAKER) (test code = 1.9 mg/dL 1.6-2.6 627) Trimmer Operator ID - [id number] 06:58:40 Test Item Value Reference Range Interpretation Comments PHOSPHORUS (BEAKER) (test code = 3.5 mg/dL 2.3-4.7 604) Trimmer Operator ID - DBCOMPREHENSIVE METABOLIC [id number] 06:58:39 Test Item Value Reference Range Interpretation Comments TOTAL PROTEIN 5.9 gm/dL 6.0-8.3 L (BEAKER) (test code = 770) ALBUMIN (BEAKER) 3.6 g/dL 3.5-5.0 (test code = 1145) ALKALINE PHOSPHATASE 43 U/L 40-150 (BEAKER) (test code = 346) BILIRUBIN TOTAL 0.4 mg/dL 0.2-1.2 (BEAKER) (test code = 377) SODIUM (BEAKER) (test 139 meq/L 136-145 code = 381) POTASSIUM (BEAKER) 3.9 meq/L 3.5-5.1 (test code = 379) CHLORIDE (BEAKER) 102 meq/L 98-107 (test code = 382) CO2 (BEAKER) (test 27 meq/L 22-29 code = 355) BLOOD UREA NITROGEN 6 mg/dL 7-21 L (BEAKER) (test code = 354) CREATININE (BEAKER) 0.61 mg/dL 0.57-1.25 (test code = 358) GLUCOSE RANDOM 101 mg/dL 70-105 (BEAKER) (test code = 652) CALCIUM (BEAKER) 8.7 mg/dL 8.4-10.2 (test code = 697) AST (SGOT) (BEAKER) 13 U/L 5-34 (test code = 353) ALT (SGPT) (BEAKER) 6 U/L 6-55 (test code = 347) EGFR (BEAKER) (test 96 mL/min/1.73 ESTIMA MAGDA GFR IS code = 1092) sq m NOT ACCURATE CREATININE CLEARANCE IN PREDICTING GLOMERULAR FILTRATION RATE . ESTIMATED GFR I S NOT APPLICABLE FOR DIALYSIS PATIEN TS. Trimmer Operator ID - DBCBC W/PLT COUNT & AUTO [id number] 06:27:43 Test Item Value Reference Range Interpretation Comments WHITE BLOOD CELL COUNT (BEAKER) 4.4 K/ L 3.5-10.5 (test code = 775) RED BLOOD CELL COUNT (BEAKER) 2.91 M/ L 3.93-5.22 L (test code = 761) HEMOGLOBIN (BEAKER) (test code = 9.4 GM/DL 11.2-15.7 L 410) HEMATOCRIT (BEAKER) (test code = 31.0 % 34.1-44.9 L 411) MEAN CORPUSCULAR VOLUME (BEAKER) 106.5 fL 79.4-94.8 H (test code = 753) MEAN CORPUSCULAR HEMOGLOBIN 32.3 pg 25.6-32.2 H (BEAKER) (test code = 751) MEAN CORPUSCULAR HEMOGLOBIN CONC 30.3 GM/DL 32.2-35.5 L (BEAKER) (test code = 752) RED CELL DISTRIBUTION WIDTH 21.0 % 11.7-14.4 H (BEAKER) (test code = 412) PLATELET COUNT (BEAKER) (test 188 K/CU MM 150-450 code = 756) MEAN PLATELET VOLUME (BEAKER) 9.9 fL 9.4-12.3 (test code = 754) NUCLEATED RED BLOOD CELLS 0 /100 WBC 0-0 (BEAKER) (test code = 413) NEUTROPHILS RELATIVE PERCENT 63 % (BEAKER) (test code = 429) LYMPHOCYTES RELATIVE PERCENT 20 % (BEAKER) (test code = 430) MONOCYTES RELATIVE PERCENT 13 % (BEAKER) (test code = 431) EOSINOPHILS RELATIVE PERCENT 3 % (BEAKER) (test code = 432) BASOPHILS RELATIVE PERCENT 1 % (BEAKER) (test code = 437) NEUTROPHILS ABSOLUTE COUNT 2.75 K/ L 1.56-6.13 (BEAKER) (test code = 670) LYMPHOCYTES ABSOLUTE COUNT 0.89 K/ L 1.18-3.74 L (BEAKER) (test code = 414) MONOCYTES ABSOLUTE COUNT (BEAKER) 0.57 K/ L 0.24-0.36 H (test code = 415) EOSINOPHILS ABSOLUTE COUNT 0.15 K/ L 0.04-0.36 (BEAKER) (test code = 416) BASOPHILS ABSOLUTE COUNT (BEAKER) 0.02 K/ L 0.01-0.08 (test code = 417) IMMATURE GRANULOCYTES-RELATIVE 0 % 0-1 PERCENT (BEAKER) (test code = 2801) 2D Echo W/Doppler(CW/PW/Color)2022-02-26 16:28:46Ejection FractionSLEH ECHO [facility] W/Doppler(CW/PW/Color)2022-02-26 16:28:46Ejection FractionSLEH ECHO HE[facility] Echo W/Doppler(CW/PW/Color) 2022-02-26 16:28:46Ejection FractionSLEH ECHO HE[facility] Echo W/Doppler(CW/PW/Color)2022-02-26 16:28:46Ejection FractionSLEH ECHO [facility] Echo W/Doppler(CW/PW/Color)2022-02-26 16:28:46Ejection FractionSLEH ECHO HE[facility] Echo W/Doppler(CW/PW/Color) 2022-02-26 16:28:46Ejection FractionSLEH ECHO HEARTLAB [facility] Echo W/Doppler(CW/PW/Color)2022-02-26 16:28:46Ejection FractionSLEH ECHO HE[facility] Echo W/Doppler(CW/PW/Color)2022-02-26 16:28:46Ejection FractionSLEH ECHO [facility] Echo W/Doppler(CW/PW/Color) 2022-02-26 16:28:46Ejection FractionSLEH ECHO [facility] Echo W/Doppler(CW/PW/Color)2022-02-26 16:28:46Ejection FractionSLEH ECHO [facility] Echo W/Doppler(CW/PW/Color)2022-02-26 16:28:46Ejection FractionSLEH ECHO HEARTLAB [facility] HospitalLIPID [id number] 15:43:08 Test Item Value Reference Range Interpretation Comments TRIGLYCERIDES (BEAKER) (test code = 115 mg/dL 540) CHOLESTEROL (BEAKER) (test code = 111 mg/dL 631) HDL CHOLESTEROL (BEAKER) (test code 41 mg/dL = 976) LDL CHOLESTEROL CALCULATED (BEAKER) 47 mg/dL (test code = 633) Triglyceride Reference Range: Low Risk <150 Borderline 150-199 High Risk 200- 499 Very High Risk >=500Cholesterol Reference Range: Low Risk <200 Borderline 200-239 High Risk >240HDL Cholesterol Reference Range: Low Risk >=60 High Risk <40LDL Cholesterol Reference Range: Optimal <100 Near Optimal 100-129 Borderline 130-159 High 160-189 Very High >=190 Trimmer Operator ID - DBHEMOGLOBIN [id number] 14:08:00 Test Item Value Reference Range Interpretation Comments HEMOGLOBIN A1C 5.2 % See_Comment [Automated m essage] ELECTROPHORESIS (BEAKER) The system which (test code = 3811) generated this result transmitted ref erence range: <=5.6%. The reference range was not used to int erpret this result as normal/abnormal . "The A1c is measured using a NGSP-certified method. HbA1c value equal to or greater than 6.5% as thediagnosis cutoff for diabetes. An HbA1c value of 5.7- 6.4% indicates increased risk for diabetes (prediabetes)."Trimmer Operator ID - ADMOperator ID - [id number] 13:30:48 Test Item Value Reference Range Interpretation Comments PROTIME (BEAKER) (test 16.2 seconds 11.9-14.2 H code = 759) INR (BEAKER) (test 1.32 See_Comment [Automat ed code = 370) message] The sy stem which generated this result transmitted reference range : <=5.90. The reference range was not used to interpret this result as normal/abnormal . PARTIAL THROMBOPLASTIN 29.2 seconds 22.5-36.0 TIME (JEFF) (test code = 760) RECOMMENDED COUMADIN/WARFARIN INR THERAPY RANGESSTANDARD DOSE: 2.0 - 3.0 Includes: PROPHYLAXIS for venous thrombosis, systemic embolization; TREATMENT for venous thrombosis and/or pulmonary embolus.HIGH RISK: Target INR is 2.5-3.5 for patients with mechanical heart valves.PROTHROMBIN TIME/[id number] 13:30:10 Test Item Value Reference Range Interpretation Comments PROTIME (JEFF) 16.2 seconds 11.9-14.2 H (test code = 759) INR (JEFF) (test 1.32 See_Comment [Automat ed message] code = 370) The system [employer] generated this result transmitted ref erence range: <=5.90. The reference range was not used to int erpret this result as normal/abnormal . RECOMMENDED COUMADIN/WARFARIN INR THERAPY RANGESSTANDARD DOSE: 2.0 - 3.0 Includes: PROPHYLAXIS for venous thrombosis, systemic embolization; TREATMENT for venous thrombosis and/or pulmonary embolus.HIGH RISK: Target INR is 2.5-3.5 for patients with mechanical heart valves.T4, [id number] 13:20:26 Test Item Value Reference Range Interpretation Comments FREE T4 (JEFF) (test code = 655) 1.09 ng/dL 0.70-1.48 Trimmer Operator ID - [id number] 13:02:00 Test Item Value Reference Range Interpretation Comments PHOSPHORUS (JEFF) (test code = 3.8 mg/dL 2.3-4.7 604) Trimmer Operator ID - aahamidPOCT-GLUCOSE [id number] 11:33:18 Test Item Value Reference Range Interpretation Comments POC-GLUCOSE METER 93 mg/dL 70-110 : Notified RN/: TESTED (JEFF) (test code = AT [facility] [address]) [facility], [address]: Trimmer Operator/Techni yordy ID = [id number] for EVELYN VAZQUEZ RAD, CHEST, 2 [id number] 11:14:00Reason for exam:->pleural effusions [facility] : 1950 Sex: FFINAL REPORT CLINICAL HISTORY: pleural effusions TECHNIQUE: 2 views of the chest COMPARISON: 11/30/2021 IMPRESSION: New right chest wall port terminating at the cavoatrial junction. A moderate right pleural effusion is unchanged. There is a new trace left pleural effusion. There is no new lobar consolidation or significant cardiomegaly. Signed: Gilbert Jackson Verified Date/Time: 02/26/2022 11:14:07 Reading Location: [facility] Radiology Reading Room TSH/FREE T4 IF [id number] 10:16:32 Test Item Value Reference Range Interpretation Comments THYROID STIMULATING HORMONE 5.107 uIU/mL 0.350-4.940 H (BEAKER) (test code = 772) Trimmer Operator ID - [id number] 07:39:02 Test Item Value Reference Range Interpretation Comments MAGNESIUM (BEAKER) (test code = 1.3 mg/dL 1.6-2.6 L 627) Trimmer Operator ID - ASCOMPREHENSIVE METABOLIC [id number] 07:39:01 Test Item Value Reference Range Interpretation Comments TOTAL PROTEIN 6.1 gm/dL 6.0-8.3 (BEAKER) (test code = 770) ALBUMIN (BEAKER) 3.7 g/dL 3.5-5.0 (test code = 1145) ALKALINE PHOSPHATASE 47 U/L 40-150 (BEAKER) (test code = 346) BILIRUBIN TOTAL 0.4 mg/dL 0.2-1.2 (BEAKER) (test code = 377) SODIUM (BEAKER) (test 141 meq/L 136-145 code = 381) POTASSIUM (BEAKER) 3.8 meq/L 3.5-5.1 (test code = 379) CHLORIDE (BEAKER) 105 meq/L 98-107 (test code = 382) CO2 (BEAKER) (test 26 meq/L 22-29 code = 355) BLOOD UREA NITROGEN 8 mg/dL 7-21 (BEAKER) (test code = 354) CREATININE (BEAKER) 0.62 mg/dL 0.57-1.25 (test code = 358) GLUCOSE RANDOM 109 mg/dL 70-105 H (BEAKER) (test code = 652) CALCIUM (BEAKER) 9.0 mg/dL 8.4-10.2 (test code = 697) AST (SGOT) (BEAKER) 13 U/L 5-34 (test code = 353) ALT (SGPT) (BEAKER) 7 U/L 6-55 (test code = 347) EGFR (BEAKER) (test 94 mL/min/1.73 ESTIMA MAGDA GFR IS code = 1092) sq m NOT ACCURATE CREATININE CLEARANCE IN PREDICTING GLOMERULAR FILTRATION RATE . ESTIMATED GFR I S NOT APPLICABLE FOR DIALYSIS PATIEN TS. Trimmer Operator ID - ASHIV-1 ANTIGEN WITH HIV-1/2 [id number] 07:25:36 Test Item Value Reference Range Interpretation Comments HIV-1 ANTIGEN WITH HIV 1\\T\\2 Nonreactive Nonreactive ANTIBODY (2) (BEAKER) (test code = 2586) Trimmer Operator ID - ASCBC W/PLT COUNT & AUTO [id number] 07:16:28 Test Item Value Reference Range Interpretation Comments WHITE BLOOD CELL COUNT (BEAKER) 5.3 K/ L 3.5-10.5 (test code = 775) RED BLOOD CELL COUNT (BEAKER) 2.81 M/ L 3.93-5.22 L (test code = 761) HEMOGLOBIN (BEAKER) (test code = 9.0 GM/DL 11.2-15.7 L 410) HEMATOCRIT (BEAKER) (test code = 29.9 % 34.1-44.9 L 411) MEAN CORPUSCULAR VOLUME (BEAKER) 106.4 fL 79.4-94.8 H (test code = 753) MEAN CORPUSCULAR HEMOGLOBIN 32.0 pg 25.6-32.2 (BEAKER) (test code = 751) MEAN CORPUSCULAR HEMOGLOBIN CONC 30.1 GM/DL 32.2-35.5 L (BEAKER) (test code = 752) RED CELL DISTRIBUTION WIDTH 20.9 % 11.7-14.4 H (BEAKER) (test code = 412) PLATELET COUNT (BEAKER) (test 179 K/CU MM 150-450 code = 756) MEAN PLATELET VOLUME (BEAKER) 10.0 fL 9.4-12.3 (test code = 754) NUCLEATED RED BLOOD CELLS 0 /100 WBC 0-0 (BEAKER) (test code = 413) NEUTROPHILS RELATIVE PERCENT 68 % (BEAKER) (test code = 429) LYMPHOCYTES RELATIVE PERCENT 15 % (BEAKER) (test code = 430) MONOCYTES RELATIVE PERCENT 13 % (BEAKER) (test code = 431) EOSINOPHILS RELATIVE PERCENT 3 % (BEAKER) (test code = 432) BASOPHILS RELATIVE PERCENT 0 % (BEAKER) (test code = 437) NEUTROPHILS ABSOLUTE COUNT 3.57 K/ L 1.56-6.13 (BEAKER) (test code = 670) LYMPHOCYTES ABSOLUTE COUNT 0.80 K/ L 1.18-3.74 L (BEAKER) (test code = 414) MONOCYTES ABSOLUTE COUNT (BEAKER) 0.70 K/ L 0.24-0.36 H (test code = 415) EOSINOPHILS ABSOLUTE COUNT 0.18 K/ L 0.04-0.36 (BEAKER) (test code = 416) BASOPHILS ABSOLUTE COUNT (BEAKER) 0.02 K/ L 0.01-0.08 (test code = 417) IMMATURE GRANULOCYTES-RELATIVE 0 % 0-1 PERCENT (BEAKER) (test code = 2801) POCT-GLUCOSE [id number] 06:36:55 Test Item Value Reference Range Interpretation Comments POC-GLUCOSE METER 100 mg/dL 70-110 : Notified RN/: (JEFF) (test code = TESTED AT [facility] [address] 1536) [address] [facility], [address]: Trimmer Operator/Techni yordy ID = [id number] for EVER JEFFPRATIK EVELYN SARS-COV2/RT-PCR ([facility])2022-02-22 20:00:08 Test Item Value Reference Range Interpretation Comments SARS-COV2/RT-PCR (test code = Negative Negative [id number]) Negative result for this test determines that SARS-CoV-2 RNA was not present in the specimen above the Limit of Detection (LOD). However, Negative results do not preclude SARS-CoV-2 infection and should not be used as the sole basis for treatment or patient management decisions. Negative results must be combined with clinical observations, patient history, and epidemiological information. A false negative result may occur if a specimen is improperly collected, transported, or handled. A false negative result should be considered if patient's recent exposures or clinical presentation indicate that COVID-19 (SARS-CoV-2) is likely and diagnostic tests for other causes of illness are negative. Re-testing should be considered in cases of suspected false negatives.The limit of detection for this assay is 100 copies/mL.This SARS-CoV-2 test is a real-time RT_PCR test intended for the qualitative detection of nucleic acid from SARS-CoV-2 in a nasopharyngeal swab specimen collected from individuals suspected of COVID-19 by their healthcare provider.This test has not been Food and Drug Administration (FDA) cleared or approved. This is a modified version of an approved Emergency Use Authorization (EUA) and is in the process of review by the FDA. Once authorized by the FDA, the issued EUA will be effective until the declaration that circumstances exist justifying the authorization of the emergency use of in vitro diagnostic tests for detection and/or diagnosis of COVID-19 is terminated under Section 564(b)(2) of the Act or the EUA is revoked under Section 564(g) of the Act.Testing was performed using [employer] SARS-CoV-2 assay.Fact Sheet for Healthcare Providers:https://www.[employer].moss/glo/RT SARS-CoV-2 HCP Fact Sheet 51- 858038.pdfFact Sheet for Healthcare Patients:https://www.molecular.moss/glo/RT SARS-CoV-2 Patient Fact Sheet EN 51-432859C8.lxkVftgyrrgdk1041-37-61 09:12:03 Test Item Value Reference Range Interpretation Comments Hemoglobin (test code 9.7 See_Comment L [Auto mated = 786-4) message] The system which generated this result transmit magda reference range : 11.2 - 15.7 GM/ DL. The reference range was not u sed to interpret th is result as normal/abnormal . MICHELLE (test code = MICHELLE) Trimmer Operator ID - [id number] Lab Interpretation Abnormal (test code = 37468-2) [facility] Test Item Value Reference Range Interpretation Comments Hemoglobin (test code 9.7 See_Comment L [Auto mated = 786-4) message] The system which generated this result transmit magda reference range : 11.2 - 15.7 GM/ DL. The reference range was not u sed to interpret th is result as normal/abnormal . MICHELLE (test code = MICHELLE) Trimmer Operator ID - [id number] Lab Interpretation Abnormal (test code = 72591-9) [facility] 09:12:03 Test Item Value Reference Range Interpretation Comments Hemoglobin (test code 9.7 See_Comment L [Auto mated = 786-4) message] The system which generated this result transmit mgada reference range : 11.2 - 15.7 GM/ DL. The reference range was not u sed to interpret th is result as normal/abnormal . MICHELLE (test code = MICHELLE) Trimmer Operator ID - [id number] Lab Interpretation Abnormal (test code = 29206-0) [facility] 09:12:03 Test Item Value Reference Range Interpretation Comments Hemoglobin (test code 9.7 See_Comment L [Auto mated = 786-4) message] The system which generated this result transmit magda reference range : 11.2 - 15.7 GM/ DL. The reference range was not u sed to interpret th is result as normal/abnormal . MICHELLE (test code = MICHELLE) Trimmer Operator ID - [id number] Lab Interpretation Abnormal (test code = 54403-5) [facility] 09:12:03 Test Item Value Reference Range Interpretation Comments Hemoglobin (test code 9.7 See_Comment L [Auto mated = 786-4) message] The system which generated this result transmit magda reference range : 11.2 - 15.7 GM/ DL. The reference range was not u sed to interpret th is result as normal/abnormal . MICHELLE (test code = MICHELLE) Trimmer Operator ID - [id number] Lab Interpretation Abnormal (test code = 02683-8) [facility] 09:12:03 Test Item Value Reference Range Interpretation Comments Hemoglobin (test code 9.7 See_Comment L [Auto mated = 786-4) message] The system which generated this result transmit magda reference range : 11.2 - 15.7 GM/ DL. The reference range was not u sed to interpret th is result as normal/abnormal . MICHELLE (test code = MICHELLE) Trimmer Operator ID - [id number] Lab Interpretation Abnormal (test code = 09738-9) [facility] Test Item Value Reference Range Interpretation Comments Hemoglobin (test code 9.7 See_Comment L [Auto mated = 786-4) message] The system which generated this result transmit magda reference range : 11.2 - 15.7 GM/ DL. The reference range was not u sed to interpret th is result as normal/abnormal . MICHELLE (test code = MICHELLE) Trimmer Operator ID - [id number] Lab Interpretation Abnormal (test code = 50878-4) [facility] 09:12:03 Test Item Value Reference Range Interpretation Comments Hemoglobin (test code 9.7 See_Comment L [Auto mated = 786-4) message] The system which generated this result transmit magda reference range : 11.2 - 15.7 GM/ DL. The reference range was not u sed to interpret th is result as normal/abnormal . MICHELLE (test code = MICHELLE) Trimmer Operator ID - [id number] Lab Interpretation Abnormal (test code = 85268-7) [facility] 09:12:03 Test Item Value Reference Range Interpretation Comments Hemoglobin (test code 9.7 See_Comment L [Auto mated = 786-4) message] The system which generated this result transmit magda reference range : 11.2 - 15.7 GM/ DL. The reference range was not u sed to interpret th is result as normal/abnormal . MICHELLE (test code = MICHELLE) Trimmer Operator ID - [id number] Lab Interpretation Abnormal (test code = 12691-3) [facility] 09:12:03 Test Item Value Reference Range Interpretation Comments Hemoglobin (test code 9.7 See_Comment L [Auto mated = 786-4) message] The system which generated this result transmit magda reference range : 11.2 - 15.7 GM/ DL. The reference range was not u sed to interpret th is result as normal/abnormal . MICHELLE (test code = MICHELLE) Trimmer Operator ID - [id number] Lab Interpretation Abnormal (test code = 47924-3) [facility] 09:12:03 Test Item Value Reference Range Interpretation Comments Hemoglobin (test code 9.7 See_Comment L [Auto mated = 786-4) message] The system which generated this result transmit magda reference range : 11.2 - 15.7 GM/ DL. The reference range was not u sed to interpret th is result as normal/abnormal . MICHELLE (test code = MICHELLE) Trimmer Operator ID - [id number] Lab Interpretation Abnormal (test code = 74126-0) [facility] 09:12:03 Test Item Value Reference Range Interpretation Comments HEMOGLOBIN (BEAKER) (test code = 9.7 GM/DL 11.2-15.7 L 410) Trimmer Operator ID - [id number], TUNNEL CATH CENTRAL INS W/PORT [id number] 09:34:00Reason for exam:->chemo port placementReason for exam:->Needs inpatient [facility] : 1950 Sex: FFINAL REPORT Right internal jugular chest port insertion History: Ovarian cancer. Modality: Sonography and fluoroscopy. Sedation: Moderate sedation was administered. 1 mg of Versed and 50 mcg of fentanyl IV was used for moderate sedation monitored under my direction. Total intra-service time of sedation was 30 minutes. The patient's vital signs were monitored throughout the procedure and recorded in the patient's medical record by the nurse. Chef: Wilian Hutchinson MD Code Machine Operator: David Pope MD (Fellow). Approach: Right internal jugular vein Estimated blood loss: < 5 cc. Specimen: None. Fluoroscopy Time: 0.8 min.Reference Air Kerma (Ka, r): 19.4 mGy. Technique: Informed written consent was obtained. Discussion of risks, benefits, and alternatives were made with the patient. The patient expressed understanding and agreed to proceed. A universal timeout was performedprior to starting the procedure. All elements maximal sterile barrier technique was utilized for this procedure, including utilization of sterile scrub solution for skin prep, a large sterile sheet to cover the areas of the patient that were not prepped, and hand hygiene, mask, head covering, and sterile gown for performing radiologist and scrub technologist. The skin was anesthetized with 2% lidocaine. Ultrasound evaluation showed a patent and compressible right internal jugular vein, which was punctured under direct real-time ultrasound guidance with a micropuncture needle. An ultrasound image was saved to PACS. A 0.018 inch wire was placed through the needle into the right atrium. A 4 Iranian micropuncture sheath was placed and a 0.035 wire was advanced into the IVC. A subcutaneous tunnel and po cket were created in the right anterior chest wall by blunt dissection. The pocket was flushed with antibiotic solution. A 6 Iranian Bard single lumen power injectable port was placed within the pocket and the catheter brought through the tunnel. The catheter was cut to appropriate length A peel-away sheath was placed in the right IJ vein and the catheter was advanced through the sheath, with its distal tip terminating in the superior right atrium. The peel-away sheath was removed. The port was flushed and aspirated easily following placement. The skin incision was closed with 3-0 Monocryl and Dermabond. The small jugular incision site was closed using Dermabond. The patient tolerated the procedurewell and left the department in the same condition. Results: Spot radiograph of the chest demonstrates the new right IJ Port-A-Cath to lie in the expected position with its tip overlying the superior right atrium. Impression: Successful, uncomplicated placement of a right internal jugular chest portusing sonographic and fluoroscopic guidance and conscious sedation. The port is ready for immediate use. Signed: Wilian Hutchinson Verified Date/Time: 12/05/2021 09:34:59 Reading Location: [facility] Diagnostic Imaging [place] Room - [facility] 1.310.12 U/S, [id number] 09:21:00Laterality?->RightReason for exam:- >Suspected malignant pleural effusionSpecimen to be collected:->Pleural fluid - please send to cytologyShould this be performed at the bedside?- >NoLabs rafy Ordered:->CytologyLabs to be Ordered:->Body Fluid Culture (w/Gram Stain, C\\T\\S) [facility] : 1950 Sex: FFINAL REPORT Exam: Ultrasound guided thoracentesis Clinical History: Right-sided Pleural Effusion Chef: Jackie Villalta PA-C Supervising Physician: Wilian Hutchinson MD Consent: Benefits and risks were explained to the patient who gave consent to the procedure. Complication: None Immediate Procedure: The patient was placed in sitting position. The right posterior chest wasprepped and draped in usual sterile fashion. 2% lidocaine was used as local anesthetic. Under ultrasound guidance, a thoracentesis catheter was inserted into the pleural cavity. Approximately 1200 cc of clear agapito pleural fluid was aspirated. The catheter was removed. The specimen was sent to the laboratory for further analysis. The patient tolerated the procedure well without any adverse reaction. A STAT chest x-ray was ordered. The patient left the department in stable condition. Impression: Ultrasound guided right-sided thoracentesis. Signed: Wilian Hutchinson MDReport Verified Date/Time: 12/05/2021 09:21:15 Reading Location: [address] Ultrasound Reading Room BODY FLUID CULTURE + GRAM [id number] 14:50:06 Test Item Value Reference Range Interpretation Comments CULTURE (BEAKER) (test code No growth = 1095) GRAM STAIN RESULT (BEAKER) <1+ WBCs (test code = 1123) GRAM STAIN RESULT (BEAKER) No organisms seen (test code = 22662) [id number] 20:20:59Medical Cytology Report Case: [id number] Authorizing Provider: Jacobo Orlando MD Collected: 11/30/2021 09:07 AM Ordering Location: [address] Received: 11/30/2021 11:17 AM SERVICE Pa thologist: Audrey Díaz MD Specimen: Pleural, Right PLEURAL EFFUSION, RIGHT, FLUID (CYTOSPINS AND CELL BLOCK): - POSITIVE FOR MALIGNANCY - METASTATIC CARCINOMA, COMPATIBLE WITH MULLERIAN ORIGIN (SEE COMMENT) Signing Pathologist Direct Phone Line: [phone] signed by Audrey Díaz MD on 12/01/2021 at 8:20 PMThe specimen is hypercellular and consists of numerous micropapillary clusters with increased nuclear to cytoplasmic ratios and irregular nuclear contours. MOC31 and PAX 8 were performed, with appropriate controls, and the tumor is positive for both immunostains. 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 SatisfactoryThe interpretation of this case included the use of immunohistochemistry or special stains.Control Slides Examined: In-house known positive controls were evaluated along with the test tissue. These control slides run alongside of the patients sample show appropriate staining. Internal positive and negative controls when available are evaluated Immunohistochemistry technical testing was performed at [facility], Pathology Laboratory where itwas developed and its performance characteristics were determined. It has not been cleared or approved by the U.S. Food and Drug Administration. The FDA has determined that such clearance or approval is not necessary. The test is used for clinical purposes. It should not be regarded as investigationalor for research. This laboratory is certified under the Clinical Laboratory Improvement Amendments of 1988 (CLIA-88) as qualified to perform high complexity clinical laboratory testing.[facility], Department of Pathology, [address] [place] [address], [facility], [facility], [address] [place] [address], [facility]ojxqlDavid [facility], Department of Pathology, [address] [place] [address], MPGV-GLUCOSE [id number] 07:34:34 Test Item Value Reference Range Interpretation Comments POC-GLUCOSE METER 153 mg/dL 70-110 H : TESTED A T [facility] 6720 (BEAKER) (test code = [facility], 1538) [address]: Trimmer Operator/Techni yordy ID = [id number] for Henrry Mann (CELLAVISION MANUAL DIFF)2021-12-01 07:12:17 Test Item Value Reference Range Interpretation Comments NEUTROPHILS - REL 92 % (CELLAVISION)(BEAKER) (test code = 2816) LYMPHOCYTES - REL 4 % (CELLAVISION)(BEAKER) (test code = 2817) METAMYELOCYTES - REL 1 % 0-0 H (CELLAVISION)(BEAKER) (test code = 2821) BANDS - REL (CELLAVISION)(BEAKER) 2 % 0-10 (test code = 2826) ATYPICAL LYMPHOCYTES - REL 1 % 0-0 H (CELLAVISION)(BEAKER) (test code = 2829) NEUTROPHILS - ABS 6.72 K/ul 1.56-6.13 H (CELLAVISION)(BEAKER) (test code = 2830) LYMPHOCYTES - ABS 0.29 K/ul 1.18-3.74 L (CELLAVISION)(BEAKER) (test code = 2831) METAMYELOCYTES - ABS 0.07 K/uL 0.00-0.00 H (CELLAVISION)(BEAKER) (test code = 2836) BANDS - ABS (CELLAVISION)(BEAKER) 0.15 K/uL 0.00-0.80 (test code = 2840) ATYPICAL LYMPHOCYTES - ABS 0.07 K/uL 0.00-0.00 H (CELLAVISION)(BEAKER) (test code = 2858) TOTAL COUNTED (BEAKER) (test code 100 = 1351) WBC MORPHOLOGY (BEAKER) (test Normal code = 487) GIANT PLATELETS (BEAKER) (test Present code = 313) POIKILOCYTES (BEAKER) (test code 2+ moderate = 966) SPHEROCYTES (BEAKER) (test code = 1+ few 768) ELLIPTOCYTES (BEAKER) (test code 1+ few = 962) PLATELET CONCENTRATION Adequate (CELLAVISION)(BEAKER) (test code = 3438) Trimmer Operator ID - mykel Jain comments: Slide comments:CBC W/PLT COUNT & AUTO [id number] 07:12:16 Test Item Value Reference Range Interpretation Comments WHITE BLOOD CELL COUNT (BEAKER) 7.3 K/ L 3.5-10.5 (test code = 775) RED BLOOD CELL COUNT (BEAKER) 4.27 M/ L 3.93-5.22 (test code = 761) HEMOGLOBIN (BEAKER) (test code = 12.7 GM/DL 11.2-15.7 410) HEMATOCRIT (BEAKER) (test code = 41.6 % 34.1-44.9 411) MEAN CORPUSCULAR VOLUME (BEAKER) 97.4 fL 79.4-94.8 H (test code = 753) MEAN CORPUSCULAR HEMOGLOBIN 29.7 pg 25.6-32.2 (BEAKER) (test code = 751) MEAN CORPUSCULAR HEMOGLOBIN CONC 30.5 GM/DL 32.2-35.5 L (BEAKER) (test code = 752) RED CELL DISTRIBUTION WIDTH 14.2 % 11.7-14.4 (BEAKER) (test code = 412) PLATELET COUNT (BEAKER) (test 252 K/CU MM 150-450 code = 756) MEAN PLATELET VOLUME (BEAKER) 10.2 fL 9.4-12.3 (test code = 754) NUCLEATED RED BLOOD CELLS 0 /100 WBC 0-0 (BEAKER) (test code = 413) [id number] 05:14:36 Test Item Value Reference Range Interpretation Comments MAGNESIUM (BEAKER) (test code = 1.8 mg/dL 1.6-2.6 627) Trimmer Operator ID Colton WALDEN [id number] 05:14:36 Test Item Value Reference Range Interpretation Comments PHOSPHORUS (BEAKER) (test code = 5.2 mg/dL 2.3-4.7 H 604) Trimmer Operator ID - IRAM LCOMPREHENSIVE METABOLIC [id number] 05:14:35 Test Item Value Reference Range Interpretation Comments TOTAL PROTEIN 6.2 gm/dL 6.0-8.3 (BEAKER) (test code = 770) ALBUMIN (BEAKER) 3.6 g/dL 3.5-5.0 (test code = 1145) ALKALINE PHOSPHATASE 56 U/L 40-150 (BEAKER) (test code = 346) BILIRUBIN TOTAL 0.4 mg/dL 0.2-1.2 (BEAKER) (test code = 377) SODIUM (BEAKER) (test 138 meq/L 136-145 code = 381) POTASSIUM (BEAKER) 4.1 meq/L 3.5-5.1 (test code = 379) CHLORIDE (BEAKER) 101 meq/L 98-107 (test code = 382) CO2 (BEAKER) (test 26 meq/L 22-29 code = 355) BLOOD UREA NITROGEN 22 mg/dL 7-21 H (BEAKER) (test code = 354) CREATININE (BEAKER) 1.01 mg/dL 0.57-1.25 (test code = 358) GLUCOSE RANDOM 165 mg/dL 70-105 H (BEAKER) (test code = 652) CALCIUM (BEAKER) 8.8 mg/dL 8.4-10.2 (test code = 697) AST (SGOT) (BEAKER) 19 U/L 5-34 (test code = 353) ALT (SGPT) (BEAKER) 7 U/L 6-55 (test code = 347) EGFR (BEAKER) (test 54 mL/min/1.73 ESTIMA MAGDA GFR IS code = 1092) sq m NOT ACCURATE CREATININE CLEARANCE IN PREDICTING GLOMERULAR FILTRATION RATE . ESTIMATED GFR I S NOT APPLICABLE FOR DIALYSIS PATIEN TS. Trimmer Operator ID - IRAM JUNGOCT-GLUCOSE [id number] 21:22:35 Test Item Value Reference Range Interpretation Comments POC-GLUCOSE METER 141 mg/dL 70-110 H : Notified RN/MD: TESTED ([facility]) (test code AT [address] = 1538) [facility], 770 30: Trimmer Operator/Techni yordy ID = [id number] for JC MCCONNELL POCT-GLUCOSE [id number] 17:33:44 Test Item Value Reference Range Interpretation Comments POC-GLUCOSE METER 122 mg/dL 70-110 H : TESTED [place] [address] ([facility]) (test code = [place] [facility], 1538) [address]: Trimmer Operator/Techni yordy ID = [id number] for Lio Mcmillana POCT-GLUCOSE [id number] 12:27:14 Test Item Value Reference Range Interpretation Comments POC-GLUCOSE METER 120 mg/dL 70-110 H : TESTED [place] [address] ([facility]) (test code = [facility], 1538) [address]: Trimmer Operator/Techni yordy ID = [id number] for EP [place], AXEL RAD, CHEST, 1 VIEW, NON [id number] 09:42:00Reason for exam:->post right sided thoracentesisShould this be performed at the bedside?->Yes [facility] : 1950 Sex: FFINAL REPORT INDICATION: post right sided thoracentesis COMPARISON: None TECHNIQUE: Single frontal view of the chest. FINDINGS: Lungs and pleura: Small right effusion. No significant pneumothorax.Heart and mediastinum: Normal heart size. Unremarkable mediastinal contours.Osseous structures: No acute abnormality.Other: None. IMPRESSION: Small right effusion. No significant pneumothorax Signed: Nadya Trevizo MDReport Verified Date/Time: 11/30/2021 09:42:00 Reading Location: [facility] Radiology Reading Room PHOSPHORUS 2021-11-30 04:45:09 Test Item Value Reference Range Interpretation Comments PHOSPHORUS (BEAKER) (test code = 3.3 mg/dL 2.3-4.7 604) Trimmer Operator ID - CAROLYN WCOMPREHENSIVE METABOLIC [id number] 04:45:08 Test Item Value Reference Range Interpretation Comments TOTAL PROTEIN 6.7 gm/dL 6.0-8.3 (BEAKER) (test code = 770) ALBUMIN (BEAKER) 3.9 g/dL 3.5-5.0 (test code = 1145) ALKALINE PHOSPHATASE 61 U/L 40-150 (BEAKER) (test code = 346) BILIRUBIN TOTAL 0.4 mg/dL 0.2-1.2 (BEAKER) (test code = 377) SODIUM (BEAKER) (test 143 meq/L 136-145 code = 381) POTASSIUM (BEAKER) 3.5 meq/L 3.5-5.1 (test code = 379) CHLORIDE (BEAKER) 100 meq/L 98-107 (test code = 382) CO2 (BEAKER) (test 32 meq/L 22-29 H code = 355) BLOOD UREA NITROGEN 18 mg/dL 7-21 (BEAKER) (test code = 354) CREATININE (BEAKER) 0.82 mg/dL 0.57-1.25 (test code = 358) GLUCOSE RANDOM 124 mg/dL 70-105 H (BEAKER) (test code = 652) CALCIUM (BEAKER) 9.8 mg/dL 8.4-10.2 (test code = 697) AST (SGOT) (BEAKER) 22 U/L 5-34 (test code = 353) ALT (SGPT) (BEAKER) 10 U/L 6-55 (test code = 347) EGFR (BEAKER) (test 68 mL/min/1.73 ESTIMA MAGDA GFR IS code = 1092) sq m NOT ACCURATE CREATININE CLEARANCE IN PREDICTING GLOMERULAR FILTRATION RATE . ESTIMATED GFR I S NOT APPLICABLE FOR DIALYSIS PATIEN TS. Trimmer Operator ID - CAROLYN [id number] 04:45:08 Test Item Value Reference Range Interpretation Comments MAGNESIUM (BEAKER) (test code = 2.0 mg/dL 1.6-2.6 627) Trimmer Operator ID - CAROLYN [id number] 04:35:17 Test Item Value Reference Range Interpretation Comments PTT (test code = 05131-4) 27.1 See_Comment [ Automated message] The system [employer] generated this result transmitted ref erence range: 22.5 - 3 6.0 seconds. The re ference range was not u sed to interpret this result as normal/abnor mal. Lab Interpretation (test Normal code = 33483-7) [place] [id number] 04:35:17 Test Item Value Reference Range Interpretation Comments PTT (test code = 18396-1) 27.1 See_Comment [ Automated message] The system [employer] generated this result transmitted ref erence range: 22.5 - 3 6.0 seconds. The re ference range was not u sed to interpret this result as normal/abnor mal. Lab Interpretation (test Normal code = 97561-2) [place] [address]22-01-06 04:35:17 Test Item Value Reference Range Interpretation Comments PTT (test code = 56149-4) 27.1 See_Comment [ Automated message] The system [employer] generated this result transmitted ref erence range: 22.5 - 3 6.0 seconds. The re ference range was not u sed to interpret this result as normal/abnor mal. Lab Interpretation (test Normal code = 75859-2) [place] [address]194022-01-06 04:35:17 Test Item Value Reference Range Interpretation Comments PTT (test code = 04576-0) 27.1 See_Comment [ Automated message] The system [employer] generated this result transmitted ref erence range: 22.5 - 3 6.0 seconds. The re ference range was not u sed to interpret this result as normal/abnor mal. Lab Interpretation (test Normal code = 01110-3) [place] 27[address]22-01-06 04:35:17 Test Item Value Reference Range Interpretation Comments PTT (test code = 72806-3) 27.1 See_Comment [ Automated message] The system [employer] generated this result transmitted ref erence range: 22.5 - 3 6.0 seconds. The re ference range was not u sed to interpret this result as normal/abnor mal. Lab Interpretation (test Normal code = 52891-4) [facility] Test Item Value Reference Range Interpretation Comments PARTIAL THROMBOPLASTIN TIME 27.1 seconds 22.5-36.0 (BEAKER) (test code = 760) PROTHROMBIN TIME/[id number] 04:34:39 Test Item Value Reference Range Interpretation Comments PROTIME (BEAKER) 14.7 seconds 11.9-14.2 H (test code = 759) INR (BEAKER) (test 1.17 See_Comment [Automat ed message] code = 370) The system [employer] generated this result transmitted ref erence range: <=5.90. The reference range was not used to int erpret this result as normal/abnormal . RECOMMENDED COUMADIN/WARFARIN INR THERAPY RANGESSTANDARD DOSE: 2.0 - 3.0 Includes: PROPHYLAXIS for venous thrombosis, systemic embolization; TREATMENT for venous thrombosis and/or pulmonary embolus.HIGH RISK: Target INR is 2.5-3.5 for patients with mechanical heart valves.CBC W/PLT COUNT & AUTO [id number] 04:26:56 Test Item Value Reference Range Interpretation Comments WHITE BLOOD CELL COUNT (BEAKER) 6.4 K/ L 3.5-10.5 (test code = 775) RED BLOOD CELL COUNT (BEAKER) 4.31 M/ L 3.93-5.22 (test code = 761) HEMOGLOBIN (BEAKER) (test code = 12.9 GM/DL 11.2-15.7 410) HEMATOCRIT (BEAKER) (test code = 40.9 % 34.1-44.9 411) MEAN CORPUSCULAR VOLUME (BEAKER) 94.9 fL 79.4-94.8 H (test code = 753) MEAN CORPUSCULAR HEMOGLOBIN 29.9 pg 25.6-32.2 (BEAKER) (test code = 751) MEAN CORPUSCULAR HEMOGLOBIN CONC 31.5 GM/DL 32.2-35.5 L (BEAKER) (test code = 752) RED CELL DISTRIBUTION WIDTH 14.2 % 11.7-14.4 (BEAKER) (test code = 412) PLATELET COUNT (BEAKER) (test 271 K/CU MM 150-450 code = 756) MEAN PLATELET VOLUME (BEAKER) 10.6 fL 9.4-12.3 (test code = 754) NUCLEATED RED BLOOD CELLS 0 /100 WBC 0-0 (BEAKER) (test code = 413) NEUTROPHILS RELATIVE PERCENT 72 % (BEAKER) (test code = 429) LYMPHOCYTES RELATIVE PERCENT 11 % (BEAKER) (test code = 430) MONOCYTES RELATIVE PERCENT 12 % (BEAKER) (test code = 431) EOSINOPHILS RELATIVE PERCENT 5 % (BEAKER) (test code = 432) BASOPHILS RELATIVE PERCENT 1 % (BEAKER) (test code = 437) NEUTROPHILS ABSOLUTE COUNT 4.59 K/ L 1.56-6.13 (BEAKER) (test code = 670) LYMPHOCYTES ABSOLUTE COUNT 0.70 K/ L 1.18-3.74 L (BEAKER) (test code = 414) MONOCYTES ABSOLUTE COUNT (BEAKER) 0.75 K/ L 0.24-0.36 H (test code = 415) EOSINOPHILS ABSOLUTE COUNT 0.29 K/ L 0.04-0.36 (BEAKER) (test code = 416) BASOPHILS ABSOLUTE COUNT (BEAKER) 0.04 K/ L 0.01-0.08 (test code = 417) IMMATURE GRANULOCYTES-RELATIVE 0 % 0-1 PERCENT (BEAKER) (test code = 2801) SARS-COV2/RT-PCR ([facility])2021-11-29 18:11:02 Test Item Value Reference Range Interpretation Comments SARS-COV2/RT-PCR Negative Negative The SARS-Co V-2 target (test code = nucleic acids a re not 9840058) detected in thi s specimen. Negative result s do not preclude SARS-C oV-2 infection and s hould not be used as the daniel e basis for patient managem ent decisions. Nega tive results must be combine d with clinical observ ations, patient history , and epidemiological information. A false negativ e result may occur if a spec imen is improperly andi ected, transported or handled. This SARS CoV-2 test is a rapid, real-time RT-PC R test intended for e qualitative detection of nu cleic acid from SARS-CoV-2 in a nasopharyngeal swab specimen collected from individuals suspected of CO VID-19 by their healthcar e provider. This test has been authorized by FDA under an EUA for use by authorized laboratories. This test is only authorized for the duration of the declaration that circumstances exist justifying the authorization of emergency use of in vitro diagnostic tests for detection and/or diagnosis of COVID-19 under Section 564(b)(1) of the Federal Food, Drug and Cosmetic Act, 21 U.S.C. 360bbb-3(b)(1), unless the authorization is terminated or revoked sooner. Fact Sheet for Healthcare Providers: https://www.[employer]/Documents/Xpert%20Xpress%20SARS%20CoV-2/Fact%20Sheets/302-3802%33AEDV-MKP-6%20 HEALTHCARE%20PROVIDERS%20FACT%20SHEET.pdf Fact Sheet for Healthcare Patients: https://www.[employer]/Documents/Xpert%20Xp ress%20SARS%20CoV-2/Fact%20Sheets/3023801%89ACJO-FTK-8%20PATIENT%20FACT%20SHEET .kncY-qtwpi3389-69-05 17:38:02 Test Item Value Reference Range Interpretation Comments D-Dimer, Quant (test >20.00 See_Comment H [Autom ated code = 40019-0) message] The system which generated this result transmitted reference range : <0.50 MG/L FEU. The reference range was not used to interpr et this result as normal/abnormal . MICHELLE (test code = MICHELLE) Intended Use: The D-Dimer Assay can be used to aid in the diagnosis of Deep Vein Thrombosis (DVT) and Pulmonary Embolism Disease (PED).In patients with low pre-test probability, various studies concerning STA Liatest D-dimer test have reported that with a cutoff value of 0.50 MG/L FEU, the Negative Predictive Value (NPV) regarding the exclusion of thrombosis is within 95-100% range. Lab Interpretation Abnormal (test code = 61622-5) [id number] 17:38:02 Test Item Value Reference Range Interpretation Comments D-Dimer, Quant (test >20.00 See_Comment H [Autom ated code = 52144-7) message] The system which generated this result transmitted reference range : <0.50 MG/L FEU. The reference range was not used to interpr et this result as normal/abnormal . MICHELLE (test code = MICHELLE) Intended Use: The D-Dimer Assay can be used to aid in the diagnosis of Deep Vein Thrombosis (DVT) and Pulmonary Embolism Disease (PED).In patients with low pre-test probability, various studies concerning STA Liatest D-dimer test have reported that with a cutoff value of 0.50 MG/L FEU, the Negative Predictive Value (NPV) regarding the exclusion of thrombosis is within 95-100% range. Lab Interpretation Abnormal (test code = 66174-2) [facility]-[id number] 17:38:02 Test Item Value Reference Range Interpretation Comments D-Dimer, Quant (test >20.00 See_Comment H [Autom ated code = 44586-1) message] The system which generated this result transmitted reference range : <0.50 MG/L FEU. The reference range was not used to interpr et this result as normal/abnormal . MICHELLE (test code = MICHELLE) Intended Use: The D-Dimer Assay can be used to aid in the diagnosis of Deep Vein Thrombosis (DVT) and Pulmonary Embolism Disease (PED).In patients with low pre-test probability, various studies concerning STA Liatest D-dimer test have reported that with a cutoff value of 0.50 MG/L FEU, the Negative Predictive Value (NPV) regarding the exclusion of thrombosis is within 95-100% range. Lab Interpretation Abnormal (test code = 49248-1) [facility]-[id number] 17:38:02 Test Item Value Reference Range Interpretation Comments D-Dimer, Quant (test >20.00 See_Comment H [Autom ated code = 67288-0) message] The system which generated this result transmitted reference range : <0.50 MG/L FEU. The reference range was not used to interpr et this result as normal/abnormal . MICHELLE (test code = MICHELLE) Intended Use: The D-Dimer Assay can be used to aid in the diagnosis of Deep Vein Thrombosis (DVT) and Pulmonary Embolism Disease (PED).In patients with low pre-test probability, various studies concerning STA Liatest D-dimer test have reported that with a cutoff value of 0.50 MG/L FEU, the Negative Predictive Value (NPV) regarding the exclusion of thrombosis is within 95-100% range. Lab Interpretation Abnormal (test code = 91146-4) [id number] 17:38:02 Test Item Value Reference Range Interpretation Comments D-Dimer, Quant (test >20.00 See_Comment H [Autom ated code = 55153-7) message] The system which generated this result transmitted reference range : <0.50 MG/L FEU. The reference range was not used to interpr et this result as normal/abnormal . MICHELLE (test code = MICHELLE) Intended Use: The D-Dimer Assay can be used to aid in the diagnosis of Deep Vein Thrombosis (DVT) and Pulmonary Embolism Disease (PED).In patients with low pre-test probability, various studies concerning STA Liatest D-dimer test have reported that with a cutoff value of 0.50 MG/L FEU, the Negative Predictive Value (NPV) regarding the exclusion of thrombosis is within 95-100% range. Lab Interpretation Abnormal (test code = 39307-2) [id number]02 Test Item Value Reference Range Interpretation Comments D-DIMER QUANTITATIVE (BEAKER) > MG/L FEU <0.50 H (test code = 671) Intended Use: The D-Dimer Assay can be used to aid in the diagnosis of Deep Vein Thrombosis (DVT) and Pulmonary Embolism Disease (PED).In patients with low pre- test probability, various studies concerning STA Liatest D-dimer test have reported that with a cutoff value of 0.50 MG/L FEU, the Negative Predictive Value (NPV) regarding the exclusion of thrombosis is within 95-100% range. [id number] 17:18:32 Test Item Value Reference Range Interpretation Comments PHOSPHORUS (BEAKER) (test code = 3.8 mg/dL 2.3-4.7 604) Trimmer Operator ID - [id number] 17:18:32 Test Item Value Reference Range Interpretation Comments MAGNESIUM (BEAKER) (test code = 1.5 mg/dL 1.6-2.6 L 627) Trimmer Operator ID - BSCOMPREHENSIVE METABOLIC [id number] 17:18:31 Test Item Value Reference Range Interpretation Comments TOTAL PROTEIN 6.5 gm/dL 6.0-8.3 (BEAKER) (test code = 770) ALBUMIN (BEAKER) 3.8 g/dL 3.5-5.0 (test code = 1145) ALKALINE PHOSPHATASE 53 U/L 40-150 (BEAKER) (test code = 346) BILIRUBIN TOTAL 0.3 mg/dL 0.2-1.2 (BEAKER) (test code = 377) SODIUM (BEAKER) (test 141 meq/L 136-145 code = 381) POTASSIUM (BEAKER) 3.0 meq/L 3.5-5.1 L (test code = 379) CHLORIDE (BEAKER) 99 meq/L 98-107 (test code = 382) CO2 (BEAKER) (test 30 meq/L 22-29 H code = 355) BLOOD UREA NITROGEN 23 mg/dL 7-21 H (BEAKER) (test code = 354) CREATININE (BEAKER) 1.09 mg/dL 0.57-1.25 (test code = 358) GLUCOSE RANDOM 131 mg/dL 70-105 H (BEAKER) (test code = 652) CALCIUM (BEAKER) 9.3 mg/dL 8.4-10.2 (test code = 697) AST (SGOT) (BEAKER) 20 U/L 5-34 (test code = 353) ALT (SGPT) (BEAKER) 8 U/L 6-55 (test code = 347) EGFR (BEAKER) (test 49 mL/min/1.73 ESTIMA MAGDA GFR IS code = 1092) sq m NOT ACCURATE CREATININE CLEARANCE IN PREDICTING GLOMERULAR FILTRATION RATE . ESTIMATED GFR I S NOT APPLICABLE FOR DIALYSIS PATIEN TS. Trimmer Operator ID - [id number] 17:16:46 Test Item Value Reference Range Interpretation Comments PARTIAL THROMBOPLASTIN TIME 25.5 seconds 22.5-36.0 (BEAKER) (test code = 760) [id number] 17:16:29 Test Item Value Reference Range Interpretation Comments Fibrinogen (test code = 3255-7) 339 mg/dl 225-434 Lab Interpretation (test code = Normal 31986-3) [facility]:16[facility]29 Test Item Value Reference Range Interpretation Comments Fibrinogen (test code = 3255-7) 339 mg/dl 225-434 Lab Interpretation (test code = Normal 57985-5) [facility] 17:16:29 Test Item Value Reference Range Interpretation Comments Fibrinogen (test code = 3255-7) 339 mg/dl 225-434 Lab Interpretation (test code = Normal 26236-5) [facility] 17:16:29 Test Item Value Reference Range Interpretation Comments Fibrinogen (test code = 3255-7) 339 mg/dl 225-434 Lab Interpretation (test code = Normal 40852-0) [facility]2022-01-05 17:16:29 Test Item Value Reference Range Interpretation Comments Fibrinogen (test code = 3255-7) 339 mg/dl 225-434 Lab Interpretation (test code = Normal 96560-5) [facility]:16[facility]29 Test Item Value Reference Range Interpretation Comments FIBRINOGEN LEVEL (BEAKER) (test 339 mg/dl 225-434 code = 658) PROTHROMBIN [id number] 17:16:10 Test Item Value Reference Range Interpretation Comments PROTIME (BEAKER) 14.3 seconds 11.9-14.2 H (test code = 759) INR (BEAKER) (test 1.13 See_Comment [Automat ed message] code = 370) The system [employer] generated this result transmitted ref erence range: <=5.90. The reference range was not used to int erpret this result as normal/abnormal . RECOMMENDED COUMADIN/WARFARIN INR THERAPY RANGESSTANDARD DOSE: 2.0 - 3.0 Includes: PROPHYLAXIS for venous thrombosis, systemic embolization; TREATMENT for venous thrombosis and/or pulmonary embolus.HIGH RISK: Target INR is 2.5-3.5 for patients with mechanical heart valves.CBC W/PLT COUNT & AUTO [id number] 17:11:48 Test Item Value Reference Range Interpretation Comments WHITE BLOOD CELL COUNT (BEAKER) 6.7 K/ L 3.5-10.5 (test code = 775) RED BLOOD CELL COUNT (BEAKER) 4.12 M/ L 3.93-5.22 (test code = 761) HEMOGLOBIN (BEAKER) (test code = 12.1 GM/DL 11.2-15.7 410) HEMATOCRIT (BEAKER) (test code = 39.3 % 34.1-44.9 411) MEAN CORPUSCULAR VOLUME (BEAKER) 95.4 fL 79.4-94.8 H (test code = 753) MEAN CORPUSCULAR HEMOGLOBIN 29.4 pg 25.6-32.2 (BEAKER) (test code = 751) MEAN CORPUSCULAR HEMOGLOBIN CONC 30.8 GM/DL 32.2-35.5 L (BEAKER) (test code = 752) RED CELL DISTRIBUTION WIDTH 14.3 % 11.7-14.4 (BEAKER) (test code = 412) PLATELET COUNT (BEAKER) (test 271 K/CU MM 150-450 code = 756) MEAN PLATELET VOLUME (BEAKER) 10.0 fL 9.4-12.3 (test code = 754) NUCLEATED RED BLOOD CELLS 0 /100 WBC 0-0 (BEAKER) (test code = 413) NEUTROPHILS RELATIVE PERCENT 73 % (BEAKER) (test code = 429) LYMPHOCYTES RELATIVE PERCENT 12 % (BEAKER) (test code = 430) MONOCYTES RELATIVE PERCENT 10 % (BEAKER) (test code = 431) EOSINOPHILS RELATIVE PERCENT 4 % (BEAKER) (test code = 432) BASOPHILS RELATIVE PERCENT 1 % (BEAKER) (test code = 437) NEUTROPHILS ABSOLUTE COUNT 4.89 K/ L 1.56-6.13 (BEAKER) (test code = 670) LYMPHOCYTES ABSOLUTE COUNT 0.79 K/ L 1.18-3.74 L (BEAKER) (test code = 414) MONOCYTES ABSOLUTE COUNT (BEAKER) 0.70 K/ L 0.24-0.36 H (test code = 415) EOSINOPHILS ABSOLUTE COUNT 0.27 K/ L 0.04-0.36 (BEAKER) (test code = 416) BASOPHILS ABSOLUTE COUNT (BEAKER) 0.04 K/ L 0.01-0.08 (test code = 417) IMMATURE GRANULOCYTES-RELATIVE 0 % 0-1 PERCENT (BEAKER) (test code = 5981)
[2023-02-15 15:26] LABS: Hematocrit 19.7 % (36.0-45.0); Lymphocytes % 28.1 % (15.3-44.8); MPV 9.7 fL (7.6-11.3); RBC Red Blood Cell Count 1.76 M/uL (3.86-4.86)
[2023-02-15 15:40] LABS: Potassium 4.2 mEq/L (3.5-5.1)
[2023-02-15 16:10] LABS: Anisocytosis 2+; Blood Morphology Comment NOTED (NOT SEEN); Macrocytosis 2+; Platelet Estimate DECR; White Blood Cell Scan OK (OK)
[2023-02-15] MEDS ORDERED: NA CHLORIDE 0.9% 250 ML ONE (19:50)
--- NOTE | 2023-02-15 21:26 | ER ---
Nurse's Notes [facility] Name: Kimberly Hernandez Age: 72 yrs Sex: Female : 1950 Arrival Date: 02/15/2023 Time: 14:10 Bed 8 Private MD: Diagnosis: Anemia, unspecified Presentation: 02/15 14:16 Chief complaint: Sent by PCP for H\T\H 6.7/20.0. Pt reports feeling tired but denies hb pain/SOB/rectal bleeding. Coronavirus screen: At this time, the client does not indicate any symptoms associated with coronavirus-19. Ebola Screen: No symptoms or risks identified at this time. Initial Sepsis Screen: Does the patient meet any 2 criteria? No. Patient's initial sepsis screen is negative. Does the patient have a suspected source of infection? No. Patient's initial sepsis screen is negative. Risk Assessment: Do you want to hurt yourself or someone else? Patient reports no desire to harm self or others. Onset of symptoms was February 15, 2023. 14:16 Method Of Arrival: Ambulatory hb 14:16 Acuity: VINOD 3 hb Triage Assessment: 14:17 General: Appears in no apparent distress. Behavior is calm, cooperative. Pain: Denies hb pain. Neuro: Level of Consciousness is awake, alert, obeys commands, Oriented to person, place, time, situation. Cardiovascular: Patient's skin is warm and dry. Respiratory: Respiratory effort is even, unlabored, Respiratory pattern is regular, symmetrical. Historical: - Allergies: 14:18 No Known Allergies; hb - PMHx: 14:18 diabetes mellitus; Hypertensive disorder; Ovarian CA; hb - PSHx: 14:18 section; hb 14:18 Hysterectomy; hb - Immunization history:: Adult Immunizations up to date. - Social history:: Smoking status: unknown. Screenin:35 [facility] ED Fall Risk Assessment (Adult) Score/Fall Risk Level 0 - 2 = Low Risk. Abuse eh3 screen: Denies threats or abuse. Denies injuries from another. Nutritional screening: No deficits noted. Tuberculosis screening: No symptoms or risk factors identified. Assessment: 15:35 General: Appears in no apparent distress. comfortable, Behavior is calm, cooperative, eh3 appropriate for age. Pain: Denies pain. Neuro: Level of Consciousness is awake, alert, obeys commands, Oriented to person, place, time, situation. Cardiovascular: Capillary refill < 3 seconds Patient's skin is warm and dry. Respiratory: Airway is patent Respiratory effort is even, unlabored, Respiratory pattern is regular, symmetrical. GI: No signs and/or symptoms were reported involving the gastrointestinal system. Abdomen is round non-distended. : No signs and/or symptoms were reported regarding the genitourinary system. EENT: No signs and/or symptoms were reported regarding the EENT system. Derm: Skin is dry, Skin is pale, Skin temperature is warm. Musculoskeletal: Circulation, motion, and sensation intact. 16:30 Reassessment: Patient appears in no apparent distress at this time. Patient and/or 3 family updated on plan of care and expected duration. Pain level reassessed. Patient is alert, oriented x 3, equal unlabored respirations, skin warm/dry/pink. 17:30 Reassessment: Patient appears in no apparent distress at this time. Patient and/or 3 family updated on plan of care and expected duration. Pain level reassessed. Patient is alert, oriented x 3, equal unlabored respirations, skin warm/dry/pink. 18:30 Reassessment: Patient appears in no apparent distress at this time. Patient and/or 3 family updated on plan of care and expected duration. Pain level reassessed. Patient is alert, oriented x 3, equal unlabored respirations, skin warm/dry/pink. 19:30 Reassessment: Patient appears in no apparent distress at this time. Patient and/or eh3 family updated on plan of care and expected duration. Pain level reassessed. Patient is alert, oriented x 3, equal unlabored respirations, skin warm/dry/pink. 20:20 Reassessment: Transfusion started. eh3 20:30 Reassessment: Patient appears in no apparent distress at this time. Patient and/or eh3 family updated on plan of care and expected duration. Pain level reassessed. Patient is alert, oriented x 3, equal unlabored respirations, skin warm/dry/pink. 21:06 Reassessment: Discharge ordered, approximately 250mL PRBCs remain to be transfused. eh3 21:30 Reassessment: Patient appears in no apparent distress at this time. Patient and/or eh3 family updated on plan of care and expected duration. Pain level reassessed. Patient is alert, oriented x 3, equal unlabored respirations, skin warm/dry/pink. 22:12 Reassessment: Transfusion completed. 3 Vital Signs: 14:16 BP 123 / 48; Pulse 74; Resp 16; Temp 97.8; Pulse Ox 100% on R/A; Weight 57.15 kg; hb Height 4 ft. 11 in. ; Pain 0/10; 17:30 BP 136 / 46; Pulse 77; Resp 16; Pulse Ox 100% on R/A; eh3 18:30 BP 133 / 47; Pulse 78; Resp 16; Pulse Ox 100% on R/A; eh3 19:30 BP 113 / 55; Pulse 70; Resp 16; Pulse Ox 100% on R/A; eh3 20:30 BP 123 / 44; Pulse 66; Resp 16; Pulse Ox 100% on R/A; eh3 21:30 BP 133 / 77; Pulse 66; Resp 16; Pulse Ox 100% on R/A; eh3 22:12 BP 116 / 92; Pulse 71; Resp 16; Pulse Ox 100% on R/A; eh3 14:16 Body Mass Index 25.45 (57.15 kg, 149.86 cm) hb 14:16 Pain Scale: Adult hb ED Course: 14:10 Patient arrived in ED. mr 14:18 Triage completed. hb 14:18 Arm band placed on right wrist. hb 14:45 Andreina Mcmahon FNP-C is PHCP. kb 14:45 Kevin Lipscomb MD is Attending Physician. kb 15:20 Type And Screen Sent. bc6 15:20 Basic Metabolic Panel Sent. bc6 15:20 CBC with Diff Sent. bc6 15:20 Inserted saline lock: 20 gauge in left antecubital area, using aseptic technique. bc6 15:35 Nallely Joya, RN is Primary Nurse. eh3 15:35 Patient has correct armband on for positive identification. Bed in low position. Call [facility] light in reach. Side rails up X2. Adult w/ patient. Client placed on continuous cardiac and pulse oximetry monitoring. NIBP monitoring applied. Door closed. Noise minimized. Lights dimmed. Warm blanket given. 22:22 No provider procedures requiring assistance completed. IV discontinued, intact, 3 bleeding controlled, No redness/swelling at site. Pressure dressing applied. Administered Medications: No medications were administered Medication: 22:22 VIS not applicable for this client. 3 Outcome: 21:06 Discharge ordered by MD. tinoco 22:22 Discharged to home ambulatory, with family. 3 22:22 Condition: stable 22:22 Discharge instructions given to patient, family, Instructed on discharge instructions, follow up and referral plans. Demonstrated understanding of instructions, follow-up care. 22:23 Patient left the ED. 3 Signatures: Andreina Mcmahon, ZOFIA BARNES-Brigitte Hernandez Heather, RN RN Nallely Joya RN RN 3 Shavon Jimenez
--- NOTE | 2023-02-15 21:27 | EDPHYS ---
Physician Documentation [facility] Name: Kimberly Hernandez Age: 72 yrs Sex: Female : 1950 Arrival Date: 02/15/2023 Time: 14:10 Bed 8 Private MD: ED Physician Kevin Lipscomb HPI: 02/15 15:35 This 72 yrs old Female presents to ER via Ambulatory with complaints of Abnormal Lab kb Results. 15:35 Pt reports she had routine labs drawn yesterday. PCP called today and reported Hgb of kb 6.8. Instructed pt to come to the ER for transfusion. Pt denies any palpitations, shortness of breath, bleeding, dark stools. Pt undergoing chemo for ovarian cancer currently. States her counts have been trending down. Severity of symptoms: At their worst the symptoms were mild in the emergency department the symptoms are unchanged. The patient has not experienced similar symptoms in the past. The patient has not recently seen a physician. Historical: - Allergies: 14:18 No Known Allergies; hb - PMHx: 14:18 diabetes mellitus; Hypertensive disorder; Ovarian CA; hb - PSHx: 14:18 section; hb 14:18 Hysterectomy; hb - Immunization history:: Adult Immunizations up to date. - Social history:: Smoking status: unknown. ROS: 15:34 Cardiovascular: Negative for chest pain, palpitations, and edema, Respiratory: Negative kb for shortness of breath, cough, wheezing, and pleuritic chest pain. 15:34 Constitutional: Positive for fatigue. 15:34 All other systems are negative. Exam: 15:34 Constitutional: This is a well developed, well nourished patient who is awake, alert, kb and in no acute distress. Head/Face: Normocephalic, atraumatic. ENT: Moist Mucous membranes Cardiovascular: Regular rate and rhythm with a normal S1 and S2. No gallops, murmurs, or rubs. No pulse deficits. Respiratory: Respirations even and unlabored. No increased work of breathing. Talking in full sentences Skin: Warm, dry with normal turgor. Normal color. MS/ Extremity: Pulses equal, no cyanosis. Neurovascular intact. Full, normal range of motion. Neuro: Awake and alert, GCS 15, oriented to person, place, time, and situation. Moves all extremities. Normal gait. Vital Signs: 14:16 BP 123 / 48; Pulse 74; Resp 16; Temp 97.8; Pulse Ox 100% on R/A; Weight 57.15 kg; hb Height 4 ft. 11 in. ; Pain 0/10; 17:30 BP 136 / 46; Pulse 77; Resp 16; Pulse Ox 100% on R/A; eh3 18:30 BP 133 / 47; Pulse 78; Resp 16; Pulse Ox 100% on R/A; eh3 19:30 BP 113 / 55; Pulse 70; Resp 16; Pulse Ox 100% on R/A; eh3 20:30 BP 123 / 44; Pulse 66; Resp 16; Pulse Ox 100% on R/A; eh3 21:30 BP 133 / 77; Pulse 66; Resp 16; Pulse Ox 100% on R/A; eh3 22:12 BP 116 / 92; Pulse 71; Resp 16; Pulse Ox 100% on R/A; eh3 14:16 Body Mass Index 25.45 (57.15 kg, 149.86 cm) hb 14:16 Pain Scale: Adult hb MDM: 14:45 Patient medically screened. kb 15:34 Data reviewed: vital signs, nurses notes. kb 18:07 Differential Diagnosis anemia, gi bleed. Counseling: I had a detailed discussion with kb the patient and/or guardian regarding: the historical points, exam findings, and any diagnostic results supporting the discharge/admit diagnosis, lab results, the need for outpatient follow up, a family practitioner, to return to the emergency department if symptoms worsen or persist or if there are any questions or concerns that arise at home. ED course: Pt continues to be asymptomatic. Still awaiting blood transfusion due to multiple recollect requests. Pt updated. . 02/15 15:04 Order name: CBC with Diff; Complete Time: 16:13 kb 02/15 15:04 Order name: Basic Metabolic Panel; Complete Time: 15:40 kb 02/15 15:04 Order name: Type And Screen kb 02/15 15:33 Order name: CBC Smear Scan; Complete Time: 16:13 EDNY 02/15 15:55 Order name: LAB Add On sp 02/15 18:41 Order name: Packed RBC Leukored EDNY 02/15 18:56 Order name: ABO/RH no charge; Complete Time: 18:56 EDNY 02/15 15:04 Order name: IV Start; Complete Time: 15:20 kb 02/15 15:31 Order name: Misc. Order: Recollect T\T\S due to pen smearing; Complete Time: 15:35 jl7 Administered Medications: No medications were administered Disposition Summary: 02/15/23 21:06 Discharge Ordered Location: Home kb Condition: Stable kb Diagnosis - Anemia, unspecified kb Followup: kb - With: Emergency Department - When: As needed - Reason: Worsening of condition Followup: kb - With: Private Physician - When: 2 - 3 days - Reason: Recheck today's complaints, Continuance of care, Re-evaluation by your physician Discharge Instructions: - Discharge Summary Sheet kb - Anemia kb - Blood Transfusion, Adult, [id number] kb - Blood Transfusion, Adult, Care After, [id number] kb Forms: - Medication Reconciliation Form kb - Thank You Letter kb - Antibiotic Education kb - Prescription Opioid Use kb Signatures: Dispatcher [employer] EDMS Andreina Mcmahon, PUPPET ENGINEER-C PUPPET ENGINEER-Ckb Dennise Gaming, RN RN Kristyn Manzanares RN RN jl7 Nallely Joya RN RN eh3 Corrections: (The following items were deleted from the chart) 15:31 15:30 [facility] [place]. jl7 jl7
[2023-02-15 22:37] VITALS: TEMP 97.8; O2SAT 100
[2023-02-15 22:53] VITALS: BP 116/92
== END 2023-02-15 22:23 | disposition home or self-care (01) ==
LOC: ER 13:49
PROC: 30233N1 Transfusion of Nonautologous Red Blood Cells into Peripheral Vein, Percutaneous Approach (ICD-10-PCS; principal; 2023-02-15)
DX: D64.9 Anemia, unspecified (principal); I10 Essential (primary) hypertension; E11.9 Type 2 diabetes mellitus without complications; Z85.43 Personal history of malignant neoplasm of ovary
CPT/HCPCS: 85025; 80048; 36415; 86900; 86850; 86901; 99283; 36430; P9016; J7050